=== PATIENT | female | born 1935 | race Caucasian/White ===

== ENCOUNTER 2021-12-15 15:12 | Inpatient (IN) | payer MEDICARE, SELFPAY ==
--- NOTE | ~2021-12-15 | CT_ITS ---
EXAMINATION: CT CHEST WITHOUT CONTRAST CLINICAL INFORMATION: History of breast cancer. Follow-up. CT chest 01/10/2022. COMPARISON: CT chest 01/10/2022 TECHNIQUE: Multidetector volumetric CT imaging of the chest was done. Axial MIP volume rendering provided. Sagittal and coronal reformatted images were obtained. This CT examination was performed using dose optimization techniques as appropriate, variously including the following: *Automated exposure control *Adjustment of mA and/or kV according to patient size (this includes techniques or standardized protocols for targeted exams where dose is matched to indication/reason for exam; i.e. extremities or head) *Use of iterative reconstruction technique DLP: 201 mGy-cm FINDINGS: LUNGS: *A semisolid right apical pulmonary nodule measuring 1.5 cm x 1.0 cm unchanged compared with 01/10/2022. *6 mm x 5 mm noncalcified nodule left upper pulmonary lobe series 5 image 64 unchanged compared with 01/10/2022. *2 mm left upper pulmonary lobe noncalcified nodule series 5 image 214 unchanged compared with 01/10/2022 *3 mm left lower lobe pulmonary nodule series 5 image 249 unchanged compared with 01/10/2022. MEDIASTINUM: Nonspecific mild heterogeneous density of the thyroid is noted. No discrete nodules specifically warranting additional imaging follow-up on the basis of this examination noted. No mediastinal lymphadenopathy. Moderate-marked diffuse coronary artery calcific atherosclerosis. Trace, physiologic pericardial fluid collection area no pericardial thickening. Normal heart size. CORONARY ARTERY CALCIFICATION: Moderate-marked diffuse coronary artery calcific atherosclerosis PLEURA: There is no pleural effusion. No pleural mass or thickening. AXILLA: Right axillary lymph node dissection clips. Partial visualization of coarse dystrophic calcifications and findings consistent with scarring noted in the right breast. UPPER ABDOMEN: Unremarkable. OSSEOUS STRUCTURES: No vertebral body compression deformities. Multilevel intervertebral disc space narrowing and anterior endplate osteophytosis. CT/CT chest wo IV con IMPRESSION: *Unchanged semisolid 1.5 cm x 1.0 cm nodule within the apex of the right pulmonary lobe. Per the Fleischner Society 2017 revised guidelines, as clinically indicated recommend annual screening CT to demonstrate stability to demonstrate ultimate 5 year stability. *Unchanged small number of scattered solid pulmonary nodules ranging in size up to 6 mm diameter stable compared with 01/10/2022. *Moderate-marked diffuse coronary artery calcific atherosclerosis. *Partially visualized posttreatment related changes of the right breast.
--- NOTE | ~2021-12-15 | XR_ITS ---
EXAMINATION: XR CHEST CLINICAL INFORMATION: Encephalopathy COMPARISON: CT chest 04/01/2022 TECHNIQUE: Frontal view of the chest was obtained. FINDINGS: The heart and pulmonary vessels appear unremarkable. No infiltrates, effusions or lung masses are seen. The right apical nodule seen on the CT scan is not visible on the current study. XR/XR chest 1V IMPRESSION: No acute intrathoracic disease.
--- NOTE | ~2021-12-15 | CT_ITS ---
EXAMINATION: CT HEAD WITHOUT CONTRAST CLINICAL INFORMATION: Unwitnessed fall. COMPARISON: None TECHNIQUE: Contiguous axial imaging was performed from the skull base to vertex without intravenous administration of contrast. This CT examination was performed using dose optimization techniques as appropriate, variously including the following: *Automated exposure control *Adjustment of mA and/or kV according to patient size (this includes techniques or standardized protocols for targeted exams where dose is matched to indication/reason for exam; i.e. extremities or head) *Use of iterative reconstruction technique DLP: 774 mGy-cm FINDINGS: There is no evidence of acute intracranial hemorrhage or territorial infarction. No abnormal mass effect or midline shift is seen. Zelaya to white matter differentiation is well preserved. No extra-axial fluid collections are identified. No hydrocephalus. No significant volume loss. Patchy periventricular and deep white matter hypoattenuation is consistent with mild small vessel ischemic changes. No acute osseous or soft tissue abnormality. The mastoid air cells and visualized portions of the paranasal sinuses are well aerated. CT/CT head/brain wo IV con IMPRESSION: No acute intracranial pathology.
--- NOTE | ~2021-12-15 | CT_ITS ---
EXAMINATION: CT CHEST WITHOUT CONTRAST CLINICAL INFORMATION: Breast cancer COMPARISON: None TECHNIQUE: Multidetector volumetric CT imaging of the chest was done. Axial MIP volume rendering provided. Sagittal and coronal reformatted images were obtained. This CT examination was performed using dose optimization techniques as appropriate, variously including the following: *Automated exposure control *Adjustment of mA and/or kV according to patient size (this includes techniques or standardized protocols for targeted exams where dose is matched to indication/reason for exam; i.e. extremities or head) *Use of iterative reconstruction technique DLP: 138 mGy-cm FINDINGS: LUNGS: Evaluation of the lung bases is limited due to respiratory motion artifact. There are small left pulmonary nodules. Largest pulmonary nodule measures 4 mm in the left upper lobe axial image 88 series 5. There is a single 2 mm solid right upper lobe nodule axial image 260 series 5. There is mild biapical pleural and parenchymal scarring. There is a 1.1 x 1.4 cm heterogeneous or semisolid right apical nodule axial image 54 series 5, question related to pleural and parenchymal scarring. MEDIASTINUM: There is a partially calcified 1.5 cm nodule in the inferior left thyroid lobe. There are no enlarged hilar or mediastinal lymph nodes. The heart is upper normal in size. There is a trace pericardial effusion. CORONARY ARTERY CALCIFICATION: Moderate PLEURA: There is no pleural effusion. No pleural mass or thickening. AXILLA: There is calcification and asymmetric density in the deep central right breast. There is a right breast skin thickening. Left breast is not included in the [id number]. There are are surgical clips in the right axilla. No enlarged axillary lymph nodes. UPPER ABDOMEN: Unremarkable. OSSEOUS STRUCTURES: Degenerative changes of the spine. CT/CT chest wo IV con IMPRESSION: Bilateral small pulmonary nodules, left greater than right. Biapical pleural and parenchymal scarring. 1.1 x 1.4 cm heterogeneous or semisolid right apical nodule, question related to pleural and parenchymal scarring. 1.5 cm partially calcified left thyroid nodule. Based on patient age in size, this does not meet criteria for follow-up. Moderate coronary artery calcification. Fleischner guidelines were followed.
[2021-12-15 15:35] VITALS: BMI 21.9
--- NOTE | 2021-12-15 15:39 | ED_ITS ---
HPI - Psych General Chief Complaint: Psychiatric Symptoms Stated Complaint: SEC 12. UNABLE TO CARE FOR SELF Time Seen by Provider: 12/15/21 15:18 Source: patient and EMS Mode of arrival: EMS Limitations: altered mental status History of Present Illness HPI Narrative: Patient presents to the emergency department via EMS on a Section 12 from [facility] for inpatient bedsearch. At this time it is unclear how the H&E came in vault with patient. 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 Patient has reportedly not been eating no food in her refrigerator, has a history of diabetes, unable to drive. House was in disarray upon arrival, cause is going to be condemned due to the condition that it is in. Per report from [facility] she has no children or family. She does go to the [facility], earlier this week they tried to get her to come to the emergency department but she declined. Senior protective Services are involved. Patient agitated requesting to leave stating that she is here against her own will. Related Data Allergies Allergy/AdvReac Type Severity Reaction Status Date / Time codeine Allergy Unknown Unknown Verified 12/15/21 18:29 sulfadiazine Allergy Unknown Unknown Verified 12/15/21 18:29 Review of Systems Review of Systems: Yes Unobtainable due to mental status PMFSH Past Medical History Source: unable to obtain Social History Social History Advance Directives: No Advance Directives Information Provided: No Physical Exam Vital Signs: Vital Signs: BMI result Body Mass Index 21.9 Appearance: Alert.?Oriented to person, disoriented place and time. Acutely agitated. Unkempt. Clothing is stained and tattered, hair is matted. Eyes: Pupils equal, round and reactive to light.? ENT: Pharynx normal.?? Neck: Normal inspection.? Neck supple.?? CVS: Heart sounds normal. Normal heart rate and rhythm.? Pulses normal.?? Respiratory: No respiratory distress.? Lung sounds clear to auscultation bilaterally?? Abdomen: Soft and non-tender. Normoactive bowel sounds. ?? Skin: Skin warm and dry.? Normal skin color.? Extremities: non pitting lower extremity edema.? Neuro: Moves all extremities spontaneously. Sensation intact bilaterally. CN II- XII intact. No focal neuro deficits. Ambulates with normal steady gait. Course Course Course Narrative: Patient is an 86-year-old female, no past medical records at [facility], it is unclear who her primary care provider is. According to N report, she has a history of diabetes unclear whether this is type 1 or type 2. Patient acutely agitated at the time of exam patient lying to provide any past medical history, she is oriented to person. Patient requiring medication to calm her behaviors declines Zyprexa orally, required Zyprexa 2.5 mg IM injection. Plan to obtain labs, EKG, urinalysis, chest x-ray and a CT of the head to exclude metabolic pathology for her altered mental status/agitation. Reevaluation(s) Reevaluation #1: Patient remains acutely agitated and combative towards staff. Will trial additional Zyprexa 2.5 mg IM. Contacted local [facility], [facility] to try and obtain records for patient. 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 Patient is more calm if staff not verbally or physically interacting with her. Refusing all care and vital signs at this time, striking staff, yelling. Patient to receive additional Zyprexa, so that care can safely be administered to patient. Resps are regular, even, non-labored. Time: 17:34 Reevaluation #3: Reviewed care with ED Attending Dr. Younger, patient continues to be agitated and combative with staff with any attempts of care or interaction. Will trial benadryl IM, as patient is refusing oral medications. Time: 18:45 Additional Reevaluation(s): 1914: Patient unable to be calmed. remains yelling clear full sentences, hitting staff, ripping off pulse oximeter, unable to obtain any vital signs. Patient to receive Versed 0.5mg IM. 2014: Agitation persists. ripping off clothing. fighting staff. able to obtain vital signs. Again discussed case with ED Attending, will trial additional Versed 1mg IM as it has been 45 minutes since last administration. 2044: Able to obtain labs and peripheral angio placed. Patient signed out to Dr Luna pending results of labs, EKG, imaging. Discharge Plan Discharge Clinical Impression: Agitation Patient Disposition: Still a Patient
--- NOTE | 2021-12-15 15:43 | MHC.CARE ---
Seen by N in the community
--- NOTE | 2021-12-15 16:20 | PC.NURSE ---
Pt combative and aggressive with staff since arrival. Refusing any care from staff. Security at bedside and IM zyprexa given at this time.
[2021-12-15] MEDS: OLANZapine 10 MG VIAL 2.5 MG IM ×2 (16:29→16:56)
--- NOTE | 2021-12-15 16:50 | PC.NURSE ---
Pt continues to be aggressive/combative with staff. Unable to obtain any vitals. IM zyprexa given
[2021-12-15] MEDS: OLANZapine 10 MG VIAL 5 MG IM (17:55)
--- OUTSIDE RECORDS SUMMARY | 2021-12-15 18:54 | XMS_ITS | Continuity of Care Document ---
:1935 Author Organization [facility] Address [address] [place] [address]- Care Team Providers Name Role Phone Meaghan SALAS, Conchita Noe Primary Care Physician Encounter [facility] Date(s): 09/07/21 - 10/07/21 [facility] [address] [place] [address]- Allergies, Adverse Reactions, Alerts Substance Reaction Severity Status codeine <not entered> Active sulfADIAZINE hives Active Immunizations Given and Recorded Vaccine Date Status Refusal Reason influenza virus vaccine, inactivated1 01/11/21 Given influenza virus vaccine, inactivated2 12/26/18 Given influenza virus vaccine, inactivated 03/10/16 Recorded influenza virus vaccine, inactivated 02/07/15 Recorded SARS-CoV-2 (COVID-19) mRNA-1273 vaccine 11/23/20 Recorded SARS-CoV-2 (COVID-19) mRNA-1273 vaccine 10/10/20 Recorded Influenza Virus Vaccine (oldterm) 03/05/18 Recorded pneumococcal 13-valent vaccine 07/29/15 Recorded pneumococcal 23-valent vaccine 02/03/09 Recorded pneumococcal 23-valent vaccine 01/20/00 Recorded 1Result Comment: [facility]# [id number] Comment: [facility] [id number] Medications atorvastatin 20 mg oral tablet 1 tablet, By Mouth, Daily, for 90 days, # 90 tablet, 3 Refills, Physician Stop 01/06/22 14:02:00 EDT, 01/11/21 14:02:00 EDT, [id number], 173, cm, 01/11/21 13:37:00 EDT, Height, 60.9, kg, 06/26/19 16:25:00 EDT, Dry Weight Start Date: 01/11/21 Stop Date: 01/06/22 Status: Orderedlisinopril 10 mg oral tablet 10 mg, 1, tablet, By Mouth, Daily, # 90 tablet, Refills 3, Tot. Refills 3, Maintenance, 01/11/21 13:51:00 EDT, Route to Pharmacy Electronically, [id number], Partial fill upon patient requestif the prescription is for a schedule II opioid d... Start Date: 01/11/21 Stop Date: 01/06/22 Status: OrderedmetFORMIN 500 mg oral tablet 2 tablet = 1,000 mg, By Mouth, 2 times a day, # 360 tablet, 3 Refills, Maintenance, 01/11/21 13:52:00 EDT, Tablet, [id number], Partial fill upon patient request if the prescription is for a schedule II opioid drug., 173, cm, 01/11/21 13:37:... Start Date: 01/11/21 Stop Date: 01/06/22 Status: Orderedsertraline 25 mg oral tablet 1 tablet, By Mouth, Daily, # 30 tablet, 3 Refills, Maintenance, 08/16/21 11:57:00 EDT, [facility], 173, cm, 01/11/21 14:17:00 EDT, Height Start Date: 08/16/21 Stop Date: 12/14/21 Status: OrderedtraZODone 50 mg oral tablet 1, tablet, By Mouth, Daily at bedtime, # 30 tablet, Refills 6, Tot. Refills 6, Maintenance, 12/02/2110:21:00 EDT, Route to Pharmacy Electronically, [id number], #30 only, 173, cm, 12/02/20 10:09:00 EDT, Height, 60.9, kg, 06/26/19 16:25:00 E... Start Date: 12/02/20 Stop Date: 06/30/21 Status: Ordered Problem List Condition Effective Dates Status Health Status Informant Age related macular Active degeneration(Confirmed) Breast cancer(Confirmed) Active Cataract(Confirmed) Active Charcot's arthropathy(Confirmed) Active Chronic kidney disease stage Active 2(Confirmed) Degeneration of lumbar intervertebral Active disc(Confirmed) Depressive disorder(Confirmed) Active Diabetes(Confirmed) Active Diabetic foot ulcer(Confirmed) Active Full thickness rotator cuff Active tear(Confirmed) Hearing loss(Confirmed) Active Loss of hair(Confirmed) Active Microalbuminuria(Confirmed) Active Pulmonary nodules/lesions, Active multiple(Confirmed) 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
--- OUTSIDE RECORDS SUMMARY | 2021-12-15 18:54 | XMS_ITS | Continuity of Care Document ---
:1935 Author Organization [facility] Address [address] [place] [address]- Care Team Providers Name Role Phone Tori URBAN, Corine M Primary Care Physician [place] [facility] [place] - 03/31/[address] [address]- [facility] Encounter Diagnosis Wound of left foot (Final) - 03/29/19 Discharge Disposition: A-D/C AMA Attending Physician: Quinten Hernandez MD Admitting Physician: Sherman Ludwig MD Referring Physician: Not on Staff, Referring MD Allergies, Adverse Reactions, Alerts Substance Reaction Severity Status codeine <not entered> Active sulfADIAZINE hives Active Immunizations Given and Recorded Vaccine Date Status Refusal Reason influenza virus vaccine, inactivated1 12/26/18 Given Influenza Virus Vaccine (oldterm) 03/05/18 Recorded pneumococcal 13-valent vaccine 07/29/15 Recorded pneumococcal 23-valent vaccine 02/03/09 Recorded pneumococcal 23-valent vaccine 01/20/00 Recorded 1Result Comment: [facility] [id number] Medications atorvastatin 20 mg oral tablet 1 tablet = 20 mg, By Mouth, Daily, # 30 tablet, 2 Refills, Maintenance, 02/24/19 14:08:12 EST, Tablet, 180.3, cm, 02/24/19 13:36:29 EST, Height Start Date: 02/24/19 Status: OrderedFreestyle Lite Monitor See Instructions, # 1 each, Maintenance, check fasting blood sugars 3 times a week and when feeling dizzy Dx - hypoglycemia, 09/08/16 12:45:25, Compound Start Date: 09/08/16 Status: OrderedFreestyle Lite Test Strips See Instructions, # 50 each, Maintenance, Dx - hypoglycemia Pls check fasting blood sugars 3 time a week and when dizzy, 09/08/16 12:45:32, Compound Start Date: 09/08/16 Status: OrderedGlucagon Emergency Kit See Instructions, # 1 application, Maintenance, to use as directed, 09/08/16 12:47:37, Compound Start Date: 09/08/16 Status: Orderedlisinopril 10 mg oral tablet See Instructions, # 90 tablet, TAKE 1 TABLET BY MOUTH ONCE DAILY, [id number] Start Date: 11/05/18 Status: OrderedmetFORMIN 500 mg oral tablet 2 tablet = 1,000 mg, By Mouth, 2 times a day, # 360 tablet, 0 Refills, Maintenance, 12/26/18 15:01:08 EDT, Tablet Start Date: 12/26/18 Status: Orderedoffloading consult offloading consult, See Instructions, # 1 each, Refills 0, Tot. Refills 0, Maintenance, left DFU; charcot arthropathy with ulcer, 06/11/17 14:14:19 EDT, Compound Start Date: 06/11/17 Status: Ordered Problem List Condition Effective Dates Status Health Status Informant Age related macular Active degeneration(Confirmed) Breast cancer(Confirmed) Active Cataract(Confirmed) Active Charcot's arthropathy(Confirmed) Active Chronic kidney disease stage Active 2(Confirmed) Degeneration of lumbar intervertebral Active disc(Confirmed) Depressive disorder(Confirmed) Active Diabetic foot ulcer(Confirmed) Active Full thickness [...] Active Venous varices(Confirmed) Active Visual impairment(Confirmed) Active Results Orders for Microbiology Reports Name Date Blood Culture 03/29/19 Blood Culture #2 03/29/19 Wound Superficial Culture W/ Gram Smear 03/29/19 Microbiology Reports TEST:Superficial Wound Culture STATUS:Unauthenticated BODY SITE: SOURCE:SWAB1 COLLECTED DATE/TIME:03/29/19 7:22 PMSuperficial Wound Culture SPECIMEN DESCRIPTION : SWAB FOOT LT SPECIAL REQUESTS : NONE GRAM STAIN : 3+ POLYMORPHONUCLEAR LEUKOCYTES NO ORGANISMS SEEN CULTURE : NORMAL SO FAR REPORT STATUS : PRELIMINARY REPORT TEST:Blood Culture, Second Order STATUS:Unauthenticated BODY SITE: SOURCE:Blood COLLECTED DATE/TIME:03/29/19 6:50 PMBlood Culture, Second Order SPECIMEN DESCRIPTION : BLOOD RA SPECIAL REQUESTS : NONE CULTURE : NO GROWTH AFTER 48 HOURS REPORT STATUS : PRELIMINARY REPORT TEST:Blood Culture STATUS:Unauthenticated BODY SITE: SOURCE:Blood COLLECTED DATE/TIME:03/29/19 6:40 PMBlood Culture SPECIMEN DESCRIPTION : BLOOD LA SPECIAL REQUESTS : NONE CULTURE : NO GROWTH AFTER 48 HOURS REPORT STATUS : PRELIMINARY REPORT Radiology Reports Exam Date Time Procedure Performing Provider Status 03/29/19 7:13 PM Foot Min 3 Views Left Guscott , Jacquie; Auth (Ve rified) Notes:(Foot Min 3 Views Left) Reason For Exam: with Pain;TraumaRESULT: Foot Min 3 Views Left Foot Min 3 Views Left, 3 views Refer to EMR; Reason: Trauma; with Pain; Clinical Question(s): Fracture; Hx of Present Illness: Pt sent from Urgent care for r o DVT, pt reports she just had U S on which was neg, has chronic wound to L foot, reports L foot and ankle pain; Other Objective Findings: Pt A+Ox4, respirations even and unlabored, skin p w d, able to ambulate, has dressing to L foot, no obvious erythema noted but u COMPARISON: None. FINDINGS: Linear density seen projecting in the left fourth digit. Angulated appearance of the fourth proximalphalanx with likely chronic. I do not see evidence of erosion. No discrete fracture line identified.Diffuse midfoot arthropathy noted without evidence of erosive findings. IMPRESSION: No significant interval change from 09/13/2013 examination. Persistent apparent radiopaque foreign body in the second digit area. WSN: [id number] Dictated By: Juaquin Sanchez MD Dictated Date/Time: 03/29/19 7:35 pm Reviewed By: Juaquin Sanchez MD Signed By: Juaquin Sanchez MD Signed Date/Time: 03/29/19 7:35 pm Transcribed By: IGGY Transcribed Date/Time: 03/29/19 7:33 pm Vital Signs Most recent to oldest 1 2 3 [Reference Range]: Oxygen Saturation [94-100 96 % 95 % 98 % %] (03/31/19 11:00 AM) (03/31/19 8:05 AM) (03/30/19 7: 58 PM) Pulse Rate [55-90 bpm] 85 bpm 86 bpm 77 bpm (03/31/19 8:05 AM) (03/30/19 7:58 PM) (03/30/19 3:0 0 PM) Blood Pressure 122/70 mm Hg 124/73 mm Hg 150/76 mm Hg [90-138/55-84 mm Hg] (03/31/19 11:00 AM) (03/31/19 8:05 AM) *H* (03/30/19 7:58 PM ) Respiratory Rate [16-30 22 br/min 16 br/min 18 br/mi n br/min] (03/31/19 11:00 AM) (03/31/19 8:05 AM) (03/30/19 7: 58 PM) Temperature [96.8-100.4 101 DegF 98.1 DegF 99 DegF DegF] *H* (03/31/19 8:05 AM) (03/30/19 7:58 PM) (03/31/19 11:00 AM) Mode of Delivery (Oxygen) Room air Room air Room a ir (03/31/19 11:00 AM) (03/31/19 8:05 AM) (03/30/19 7: 58 PM) Blood pressure sites Arm, left Arm, left Arm, left (03/31/19 11:00 AM) (03/31/19 8:05 AM) (03/30/19 7: 58 PM) Temperature Route Temporal Oral Oral (03/31/19 11:00 AM) (03/31/19 8:05 AM) (03/30/19 7: 58 PM) Sensory deficits Hearing deficit L, Hearing deficit R, Other: wears contacts and reading glasses (03/30/19 3:00 PM) Mobility assistance Partial assistance (03/30/19 3:00 PM) Social History Social History Type Response Smoking Status Never smoker entered on: 01/04/15 Sex
--- OUTSIDE RECORDS SUMMARY | 2021-12-15 18:54 | XMS_ITS | Continuity of Care Document ---
:1935 Author Organization [facility] Address [address] [place] [address]- Care Team Providers Name Role Phone Corine Valle MD Primary Care Physician [place] [facility] [place](s): 12/27/18 - 06/01/19 [facility] [address] [place] [address]- [facility] Discharge Disposition: A-D/C Home Attending Physician: Sierra Flowers MD Admitting Physician: Sierra Flowers MD Referring Physician: Corine Valle MD Allergies, Adverse Reactions, Alerts Substance Reaction Severity Status codeine <not entered> Active sulfADIAZINE hives Active Immunizations Given and Recorded Vaccine Date Status Refusal Reason influenza virus vaccine, inactivated1 12/26/18 Given Influenza Virus Vaccine (oldterm) 03/05/18 Recorded pneumococcal 13-valent vaccine 07/29/15 Recorded pneumococcal 23-valent vaccine 02/03/09 Recorded pneumococcal 23-valent vaccine 01/20/00 Recorded 1Result Comment: [facility] [id number] Medications atorvastatin 20 mg oral tablet 1 [...] Orderedlisinopril 10 mg oral tablet See Instructions, TAKE 1 TABLET BY MOUTH ONCE DAILY, # 90 tablet, Refills 0, Tot. Refills 0, Soft Stop, 05/27/19 17:34:00 EDT, Instructions Replace Required Details, Route to Pharmacy Electronically, [facility], 180.3, cm, 02/24/19 13:36:00... Start Date: 05/27/19 Status: OrderedmetFORMIN 500 mg oral tablet 2 tablet = 1,000 mg, By Mouth, 2 times a day, # 360 tablet, 0 Refills, Maintenance, 04/24/19 15:28:00 EST, Tablet, [facility], 180.3, cm, 02/24/19 13:36:00 EST, Height Start Date: 04/24/19 Status: Orderedoffloading consult offloading consult, See Instructions, [...]
--- OUTSIDE RECORDS SUMMARY | 2021-12-15 18:54 | XMS_ITS | Continuity of Care Document ---
:1935 Author Organization [facility] Address [address] [place] [address]- Care Team Providers Name Role Phone Corine Valle MD Primary Care Physician Encounter [facility] [place] Date(s): 07/02/19 - 08/01/[address] [address]- [facility] Attending Physician: Not on Staff, Attending MD Admitting Physician: Not on Staff, Admitting MD Referring Physician: Not on Staff, Referring MD Allergies, Adverse Reactions, Alerts Substance Reaction Severity Status codeine <not entered> Active sulfADIAZINE hives Active Immunizations Given and Recorded Vaccine Date Status Refusal Reason influenza virus vaccine, inactivated1 12/26/18 Given Influenza Virus Vaccine (oldterm) 03/05/18 Recorded pneumococcal 13-valent vaccine 07/29/15 Recorded pneumococcal 23-valent vaccine 02/03/09 Recorded pneumococcal 23-valent vaccine 01/20/00 Recorded 1Result Comment: [facility] [id number] Medications atorvastatin 20 mg oral tablet See Instructions, Take 1 tablet by mouth once daily, # 30 tablet, 0 Refills, Maintenance, [facility], 173, cm, 07/02/19 14:33:00 EDT, Height, 60.9, kg, 06/26/19 16:25:00 EDT, Dry Weight Start Date: 07/29/19 Status: OrderedtraZODone 50 mg oral tablet 50 mg, 1, tablet, By Mouth, Daily at bedtime, # 30 tablet, Refills 1, Tot. Refills 1, Maintenance, 07/30/19 16:59:00 EDT, Route to Pharmacy Electronically, [id number], 173, cm, 07/02/19 14:33:00 EDT, Height, 60.9, kg, 06/26/19 16:25:00 EDT,... Start Date: 07/30/19 Status: OrderedZoloft 25 mg oral tablet 1 tablet = 25 mg, By Mouth, Daily, # 30 tablet, 1 Refills, Maintenance, 07/30/19 16:59:00 EDT, Tablet, [facility], 173, cm, 07/02/19 14:33:00 EDT, Height, 60.9, kg, 06/26/19 16:25:00 EDT, Dry Weight Start Date: 07/30/19 Status: Ordered Problem List Condition Effective Dates [...]
--- OUTSIDE RECORDS SUMMARY | 2021-12-15 18:54 | XMS_ITS | Continuity of Care Document ---
:1935 Author Organization [facility] Address [address] [place] [address]- Care Team Providers Name Role Phone Meaghan SALAS, Conchita Noe Primary Care Physician [phone] [place] [facility] [place] 09/28/21 - 10/28/21 [facility] [address] [place] [address]- Attending Physician: Saqib Ashley Admitting Physician: AdmtrSaqib Referring Physician: Admtr, ArMechelle Allergies, Adverse Reactions, Alerts Substance Reaction Severity [...] 01/20/00 Recorded 1Result Comment: [facility]# [id number] Comment: [facility] [id number] Medications atorvastatin 20 mg oral tablet 1 tablet, By Mouth, Daily, for 90 days, # 90 tablet, 3 Refills, Physician Stop 01/06/22 14:02:00 EDT, 01/11/21 14:02:00 EDT, [id number], 173, cm, 01/11/21 13:37:00 EDT, Height, 60.9, kg, 06/26/19 16:25:00 EDT, Dry Weight Start Date: 01/11/21 Stop Date: 01/06/22 Status: Orderedlisinopril 10 mg oral tablet 10 mg, 1, tablet, By Mouth, Daily, # 90 tablet, Refills 3, Tot. Refills 3, Maintenance, 01/11/21 13:51:00 EDT, Route to Pharmacy Electronically, [facility], Partial fill upon patient requestif the prescription is for a schedule II opioid d... Start Date: 01/11/21 Stop Date: 01/06/22 Status: OrderedmetFORMIN 500 mg oral tablet 2 tablet = 1,000 mg, By Mouth, 2 times a day, # 360 tablet, 3 Refills, Maintenance, 01/11/21 13:52:00 EDT, Tablet, [facility], Partial fill upon patient request [...] Maintenance, 12/02/2110:21:00 EDT, Route to Pharmacy Electronically, [id number], #30 only, 173, cm, 12/02/20 [...]
--- OUTSIDE RECORDS SUMMARY | 2021-12-15 18:54 | XMS_ITS | Continuity of Care Document ---
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) - 12/02/20 Osteoarthritis of knee (Discharge Diagnosis) - 12/02/20 Type 2 diabetes mellitus (Discharge Diagnosis) - 12/02/20 Pulmonary nodules/lesions, multiple (Discharge Diagnosis) - 12/02/20 Attending Physician: Conchita Harding NP Allergies, Adverse Reactions, Alerts Substance Reaction Severity Status codeine <not entered> Active sulfADIAZINE hives Active Immunizations Given and Recorded Vaccine Date Status Refusal Reason SARS-CoV-2 (COVID-19) mRNA-1273 vaccine 11/23/20 Recorded SARS-CoV-2 (COVID-19) mRNA-1273 vaccine 10/10/20 Recorded influenza virus vaccine, inactivated1 12/26/18 Given influenza virus vaccine, inactivated 03/10/16 Recorded influenza virus vaccine, inactivated 02/07/15 Recorded Influenza Virus Vaccine (oldterm) 03/05/18 Recorded pneumococcal 13-valent vaccine 07/29/15 Recorded pneumococcal 23-valent vaccine 02/03/09 Recorded pneumococcal 23-valent vaccine 01/20/00 Recorded 1Result Comment: [facility] [id number] Medications atorvastatin 20 mg oral tablet See Instructions, Take 1 tablet by mouth once daily, # 30 tablet, 0 Refills, 12/02/20 11:21:00 EDT, [facility], 173, cm, 12/02/20 10:09:00 EDT, Height, 60.9, kg, 06/26/19 16:25:00 EDT, Dry Weight Start Date: 12/02/20 Status: Orderedsertraline 25 mg oral tablet 1 tablet, By Mouth, Daily, # 30 tablet, 6 Refills, Maintenance, 12/02/20 11:21:00 EDT, [facility], 173, cm, 12/02/20 10:09:00 EDT, Height, 60.9, kg, 06/26/19 16:25:00 EDT, Dry Weight Start Date: 12/02/20 Stop Date: 06/30/21 Status: OrderedtraZODone 50 mg oral tablet 1, tablet, By Mouth, Daily at bedtime, # 30 tablet, Refills 6, Tot. Refills 6, Maintenance, 12/02/2110:21:00 EDT, Route to Pharmacy Electronically, [facility], #30 only, 173, cm, 12/02/20 [...] Active Venous varices(Confirmed) Active Visual impairment(Confirmed) Active Diagnosis Diagnosis Type Effective Dates Health Clinical Infor mant Status Service Breast cancer Discharge 12/02/20 Diagnosis Depressive disorder Discharge 12/02/20 Diagnosis Hearing loss Discharge 12/02/20 Diagnosis Neuropathy due to Discharge 12/02/20 type 2 diabetes Diagnosis mellitus Osteoarthritis of Discharge 12/02/20 knee Diagnosis Type 2 diabetes Discharge 12/02/20 mellitus Diagnosis Pulmonary Discharge 12/02/20 nodules/lesions, Diagnosis multiple Vital Signs Most recent to oldest [Reference Range]: 1 Height 173 cm (12/02/20 10:09 AM) Social History Social History Type Response Smoking Status Never smoker entered on: 01/04/15 Sex
--- OUTSIDE RECORDS SUMMARY | 2021-12-15 18:54 | XMS_ITS | Continuity of Care Document ---
:1935 Author Organization [facility] Address [address] [place] [address]- Care Team Providers Name Role Phone Not on Staff, PCP Primary Care Physician Unavailable Encounter [facility] Date(s): 11/20/20 - 11/20/[address] [address]- Encounter Diagnosis Hyperlipidemia (Final) - 11/20/20 Discharge Disposition: A-D/C Home Attending Physician: Deidra Denton MD Admitting Physician: Deidra Denton MD Referring Physician: Not on Staff, Referring [...] 01/20/00 Recorded 1Result Comment: [facility] [id number] Medications atorvastatin 20 mg oral tablet 1 tablet = 20 mg, By Mouth, Daily, # 15 tablet, 0 Refills, Maintenance, 11/20/20 18:39:00 EDT, Tablet, [facility], Partial fill upon patient request if the prescription is for a schedule II opioid drug., 173, cm, 07/02/19 14:33:00 EDT, [facility]... Start Date: 11/20/20 Status: Orderedatorvastatin 20 mg oral tablet See Instructions, Take 1 tablet by mouth once daily, # 30 tablet, 0 Refills, 08/03/20 13:18:00 EDT, [facility], 173, cm, 07/02/19 14:33:00 EDT, Height, 60.9, kg, 06/26/19 16:25:00 EDT, Dry Weight Start Date: 08/03/20 Status: Orderedsertraline 25 mg oral tablet 1 tablet = 25 mg, By Mouth, Daily, # 15 tablet, 0 Refills, Maintenance, 11/20/20 18:40:00 EDT, Tablet, [facility], Partial fill upon patient request if the prescription is for a schedule II opioid drug., 173, cm, 07/02/19 14:33:00 EDT, [facility]... Start Date: 11/20/20 Status: Orderedsertraline 25 mg oral tablet 1 tablet, By Mouth, Daily, # 30 tablet, 0 Refills, Maintenance, 08/03/20 13:19:00 EDT, [facility], 173, cm, 07/02/19 14:33:00 EDT, Height, 60.9, kg, 06/26/19 16:25:00 EDT, Dry Weight Start Date: 08/03/20 Status: OrderedtraZODone 50 mg oral tablet 50 mg, 1, tablet, By Mouth, Daily at bedtime, # 15 tablet, Refills 0, Tot. Refills 0, Maintenance, 11/20/20 18:41:00 EDT, Route to Pharmacy Electronically, [facility], Partial fill upon patient request if the prescription is for a schedule... Start Date: 11/20/20 Status: OrderedtraZODone 50 mg oral tablet 1, tablet, By Mouth, Daily at bedtime, # 30 tablet, Refills 0, Tot. Refills 0, Maintenance, 08/03/2112:19:00 EDT, Route to Pharmacy Electronically, [facility], #30 only, 173, cm, 07/02/19 14:33:00 EDT, Height, 60.9, kg, 06/26/19 16:25:00 E... Start Date: 08/03/20 Status: Ordered Problem List Condition Effective Dates [...] Active Venous varices(Confirmed) Active Visual impairment(Confirmed) Active Vital Signs Most recent to oldest [Reference 1 2 3 Range]: Oxygen Saturation [94-100 %] 96 % 94 % (11/20/20 6:00 PM) (11/20/20 3:53 PM) Pulse Rate [55-90 bpm] 72 bpm 81 bpm (11/20/20 6:00 PM) (11/20/20 3:53 PM) Blood Pressure [90-138/55-84 mm 180/87 mm Hg 194/84 mm Hg 152/94 mm Hg Hg] *H* *H* *H* (11/20/20 6:19 PM) (11/20/20 6:00 PM) (11/20/20 3:53 P M) Respiratory Rate [16-30 br/min] 20 br/min 16 br/min (11/20/20 6:00 PM) (11/20/20 3:53 PM) Temperature [96.8-100.4 DegF] 98.1 DegF 98 DegF (11/20/20 6:00 PM) (11/20/20 3:53 PM) Mode of Delivery (Oxygen) Room air Room air (11/20/20 6:00 PM) (11/20/20 3:53 PM) Blood pressure sites Arm, left (11/20/20 6:00 PM) Temperature Route Oral Oral (11/20/20 6:00 PM) (11/20/20 3:53 PM) Social History Social History Type Response Smoking Status Never smoker entered on: 01/04/15 Sex
--- OUTSIDE RECORDS SUMMARY | 2021-12-15 18:54 | XMS_ITS | Continuity of Care Document ---
:1935 Author Organization [facility] Address [address] [place] [address]- Care Team Providers Name Role Phone Meaghan SALAS, Conchita Noe Primary Care Physician [phone] Encounter [facility] [place] Date(s): 10/21/21 - 11/20/21 [facility] [address] [place] [address]- Allergies, Adverse Reactions, Alerts Substance Reaction Severity [...] pneumococcal 23-valent vaccine 01/20/00 Recorded 1Result Comment: [facility]# [id number] Comment: [facility] [id number] Medications atorvastatin 20 mg oral tablet 1 tablet, By Mouth, Daily, for 90 days, # 90 tablet, 3 Refills, Physician Stop 01/06/22 14:02:00 EDT, 01/11/21 14:02:00 EDT, [facility], 173, cm, 01/11/21 13:37:00 EDT, Height, 60.9, kg, 06/26/19 16:25:00 EDT, Dry Weight Start Date: 01/11/21 Stop Date: 01/06/22 Status: Orderedlisinopril 10 mg oral tablet 10 mg, 1, tablet, By Mouth, Daily, # 90 tablet, Refills 3, Tot. Refills 3, Maintenance, 01/11/21 13:51:00 EDT, Route to Pharmacy Electronically, [facility], Partial fill upon patient requestif the prescription is for a schedule II opioid d... Start Date: 01/11/21 Stop Date: 01/06/22 Status: OrderedmetFORMIN 500 mg oral tablet 2 tablet = 1,000 mg, By Mouth, 2 times a day, # 360 tablet, 3 Refills, Maintenance, 01/11/21 13:52:00 EDT, Tablet, [facility], Partial fill upon patient request [...] Maintenance, 12/02/2110:21:00 EDT, Route to Pharmacy Electronically, [facility], #30 only, 173, cm, [...] Status Never smoker entered on: 01/04/15 Sex Care Team PersonnelName: Meaghan SALAS, Conchita Noe Address: [address] [facility] [address] [place], [place] [address]
--- OUTSIDE RECORDS SUMMARY | 2021-12-15 18:55 | XMS_ITS | Continuity of Care Document ---
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# [id number] Comment: [facility] [id number] Medications atorvastatin 20 mg oral tablet 1 tablet, By Mouth, Daily, for 90 days, # 90 tablet, 3 Refills, Physician Stop 01/06/22 14:02:00 EDT, 01/11/21 14:02:00 EDT, [facility], 173, cm, 01/11/21 13:37:00 EDT, Height, 60.9, kg, 06/26/19 16:25:00 EDT, Dry Weight Start Date: 01/11/21 Stop Date: 01/06/22 Status: Orderedlisinopril 10 mg oral tablet 10 mg, 1, tablet, By Mouth, Daily, # 90 tablet, Refills 3, Tot. Refills 3, Maintenance, 01/11/21 13:51:00 EDT, Route to Pharmacy Electronically, [facility], Partial fill upon patient requestif the prescription is for a schedule II opioid d... Start Date: 01/11/21 Stop Date: 01/06/22 Status: OrderedmetFORMIN 500 mg oral tablet 2 tablet = 1,000 mg, By Mouth, 2 times a day, # 360 tablet, 3 Refills, Maintenance, 01/11/21 13:52:00 EDT, Tablet, [facility], Partial fill upon patient request if the prescription is for a schedule II opioid drug., 173, cm, 01/11/21 13:37:... Start Date: 01/11/21 Stop Date: 01/06/22 Status: Orderedsertraline 25 mg oral tablet 1 tablet, By Mouth, Daily, # 30 tablet, 6 Refills, Maintenance, 12/02/20 11:21:00 EDT, [facility], 173, cm, 12/02/20 10:09:00 EDT, Height, 60.9, kg, 06/26/19 16:25:00 EDT, Dry Weight Start Date: 12/02/20 Stop Date: 06/30/21 Status: OrderedtraZODone 50 mg oral tablet 1, tablet, By Mouth, Daily at bedtime, # 30 tablet, Refills 6, Tot. Refills 6, Maintenance, 12/02/2110:21:00 EDT, Route to Pharmacy Electronically, [facility], #30 only, 173, cm, 12/02/20 [...] Dates Health Clinical Infor mant Status Service Encounter for Discharge 01/11/21 Medicare annual Diagnosis wellness exam Breast cancer Discharge 01/11/21 Diagnosis Chronic kidney Discharge 01/11/21 disease stage 2 Diagnosis Degeneration of Discharge 01/11/21 lumbar Diagnosis intervertebral disc Depressive disorder Discharge 01/11/21 Diagnosis Hearing loss Discharge 01/11/21 Diagnosis Hypertension Discharge 01/11/21 Diagnosis Diabetes Discharge 01/12/21 Diagnosis Vital Signs Most recent to oldest 1 2 3 [Reference Range]: Height 173 cm 173 cm 173 cm (01/11/21 2:17 PM) (01/11/21 1:38 PM) (01/11/21 1:37 PM) Weight 73.1 kg (01/11/21 1:20 PM) Oxygen Saturation [94-100 %] 98 % (01/11/21 1:20 PM) Pulse Rate [55-90 bpm] 84 bpm (01/11/21 1:20 PM) Body Mass Index [18.5-24.99] 24.42 (01/11/21 1:20 PM) Blood Pressure [90-138/55-84 172/98 mm Hg 156/77 mm Hg 163 /80 mm Hg mm Hg] *H* *H* *H* (01/11/21 2:17 PM) (01/11/21 1:38 PM) (01/11/21 1:37 PM) Mode of Delivery (Oxygen) Room air (01/11/21 1:20 PM) Blood pressure sites Arm, left Arm, right Arm, right (01/11/21 2:17 PM) (01/11/21 1:38 PM) (01/11/21 1:37 PM) Weight Obtained Via Standing scale (01/11/21 1:20 PM) Social History Social History Type Response Smoking Status Never smoker entered on: 01/04/15 Sex
--- OUTSIDE RECORDS SUMMARY | 2021-12-15 18:55 | XMS_ITS | Continuity of Care Document ---
:1935 Author Organization [facility] Address [address] [place] [address]- Care Team Providers Name Role Phone Meaghan SALAS, Conchita Noe Primary Care Physician [id number] Date(s): 02/18/21 - 06/18/21 [facility] [address] [place] [address]- Attending Physician: Conchita Harding NP Allergies, Adverse [...] pneumococcal 23-valent vaccine 01/20/00 Recorded 1Result Comment: [facility]# [id number] Comment: [facility] [id number] Medications atorvastatin 20 mg oral tablet 1 tablet, By Mouth, Daily, for 90 days, # 90 tablet, 3 Refills, Physician Stop 01/06/22 14:02:00 EDT, 01/11/21 14:02:00 EDT, [facility], 173, cm, 01/11/21 13:37:00 EDT, Height, 60.9, kg, 06/26/19 16:25:00 EDT, Dry Weight Start Date: 01/11/21 Stop Date: 01/06/22 Status: Orderedlisinopril 10 mg oral tablet 10 mg, 1, tablet, By Mouth, Daily, # 90 tablet, Refills 3, Tot. Refills 3, Maintenance, 01/11/21 13:51:00 EDT, Route to Pharmacy Electronically, [facility], Partial fill upon patient requestif the prescription is for a schedule II opioid d... Start Date: 01/11/21 Stop Date: 01/06/22 Status: OrderedmetFORMIN 500 mg oral tablet 2 tablet = 1,000 mg, By Mouth, 2 times a day, # 360 tablet, 3 Refills, Maintenance, 01/11/21 13:52:00 EDT, Tablet, [facility], Partial fill upon patient request if the prescription is for a schedule II opioid drug., 173, cm, 01/11/21 13:37:... Start Date: 01/11/21 Stop Date: 01/06/22 Status: Orderedsertraline 25 mg oral tablet 1 tablet, By Mouth, Daily, # 30 tablet, 6 Refills, Maintenance, 12/02/20 11:21:00 EDT, [facility], 173, cm, 12/02/20 10:09:00 EDT, Height, 60.9, kg, 06/26/19 16:25:00 EDT, Dry Weight Start Date: 12/02/20 Stop Date: 06/30/21 Status: OrderedtraZODone 50 mg oral tablet 1, tablet, By Mouth, Daily at bedtime, # 30 tablet, Refills 6, Tot. Refills 6, Maintenance, 12/02/2110:21:00 EDT, Route to Pharmacy Electronically, [facility], #30 only, 173, cm, [...]
--- OUTSIDE RECORDS SUMMARY | 2021-12-15 18:55 | XMS_ITS | Continuity of Care Document ---
:1935 Author Organization [facility] Address [address] [place] [address]- Care Team Providers Name Role Phone Meaghan SALAS, Conchita Noe Primary Care Physician Encounter [facility] [place] Date(s): 05/19/21 - 06/18/21 [facility] [address] [place] [address]- Attending Physician: Saqib Ashley Admitting Physician: AdmtrSaqib [...] Recorded 1Result Comment: [facility]# [id number] Comment: [facility] [id number] Medications atorvastatin 20 mg oral tablet 1 tablet, By Mouth, Daily, for 90 days, # 90 tablet, 3 Refills, Physician Stop 01/06/22 14:02:00 EDT, 01/11/21 14:02:00 EDT, [facility], 173, cm, 01/11/21 13:37:00 EDT, Height, 60.9, kg, 06/26/19 16:25:00 EDT, Dry Weight Start Date: 01/11/21 Stop Date: 01/06/22 Status: Orderedlisinopril 10 mg oral tablet 10 mg, 1, tablet, By Mouth, Daily, # 90 tablet, Refills 3, Tot. Refills 3, Maintenance, 01/11/21 13:51:00 EDT, Route to Pharmacy Electronically, [facility], Partial fill upon patient requestif the prescription is for a schedule II opioid d... Start Date: 01/11/21 Stop Date: 01/06/22 Status: OrderedmetFORMIN 500 mg oral tablet 2 tablet = 1,000 mg, By Mouth, 2 times a day, # 360 tablet, 3 Refills, Maintenance, 01/11/21 13:52:00 EDT, Tablet, [facility], Partial fill upon patient request if the prescription is for a schedule II opioid drug., 173, cm, 01/11/21 13:37:... Start Date: 01/11/21 Stop Date: 01/06/22 Status: Orderedsertraline 25 mg oral tablet 1 tablet, By Mouth, Daily, # 30 tablet, 6 Refills, Maintenance, 12/02/20 11:21:00 EDT, [facility], 173, cm, 12/02/20 10:09:00 EDT, Height, 60.9, kg, 06/26/19 16:25:00 EDT, Dry Weight Start Date: 12/02/20 Stop Date: 06/30/21 Status: OrderedtraZODone 50 mg oral tablet 1, tablet, By Mouth, Daily at bedtime, # 30 tablet, Refills 6, Tot. Refills 6, Maintenance, 12/02/2110:21:00 EDT, Route to Pharmacy Electronically, [facility], #30 only, 173, cm, [...]
--- OUTSIDE RECORDS SUMMARY | 2021-12-15 18:55 | XMS_ITS | Continuity of Care Document ---
:1935 Author Organization [facility] Address [address] [place] [address]- Care Team Providers Name Role Phone Meaghan SALAS, Conchita Noe Primary Care Physician [place] [facility] [place] 09/16/21 - 10/16/21 [facility] [address] [place] [address]- Allergies, Adverse Reactions, Alerts Substance Reaction Severity [...] 23-valent vaccine 01/20/00 Recorded 1Result Comment: [facility]# [id number] Comment: [facility] [id number] Medications atorvastatin 20 mg oral tablet 1 tablet, By Mouth, Daily, for 90 days, # 90 tablet, 3 Refills, Physician Stop 01/06/22 14:02:00 EDT, 01/11/21 14:02:00 EDT, [facility], 173, cm, 01/11/21 13:37:00 EDT, Height, 60.9, kg, 06/26/19 16:25:00 EDT, Dry Weight Start Date: 01/11/21 Stop Date: 01/06/22 Status: Orderedlisinopril 10 mg oral tablet 10 mg, 1, tablet, By Mouth, Daily, # 90 tablet, Refills 3, Tot. Refills 3, Maintenance, 01/11/21 13:51:00 EDT, Route to Pharmacy Electronically, [facility], Partial fill upon patient requestif the prescription is for a schedule II opioid d... Start Date: 01/11/21 Stop Date: 01/06/22 Status: OrderedmetFORMIN 500 mg oral tablet 2 tablet = 1,000 mg, By Mouth, 2 times a day, # 360 tablet, 3 Refills, Maintenance, 01/11/21 13:52:00 EDT, Tablet, [facility], Partial fill upon patient [...] Maintenance, 12/02/2110:21:00 EDT, Route to Pharmacy Electronically, [facility], #30 only, 173, cm, [...]
--- OUTSIDE RECORDS SUMMARY | 2021-12-15 18:55 | XMS_ITS | Continuity of Care Document ---
:1935 Author Organization [facility] Adult Address [address] [place] [address]- Care Team Providers Name Role Phone Meaghan SALAS, Conchita Noe Primary Care Physician [phone] Encounter [facility] [place] Date(s): 09/14/21 - 10/28/21 [facility] [address] [place], [place] [address] Attending Physician: Conchita Harding NP Allergies, Adverse [...] pneumococcal 23-valent vaccine 01/20/00 Recorded 1Result Comment: [facility]# [id number] Comment: [facility] [id number] Medications atorvastatin 20 mg oral tablet 1 tablet, By Mouth, Daily, for 90 days, # 90 tablet, 3 Refills, Physician Stop 01/06/22 14:02:00 EDT, 01/11/21 14:02:00 EDT, [facility], 173, cm, 01/11/21 13:37:00 EDT, Height, 60.9, kg, 06/26/19 16:25:00 EDT, Dry Weight Start Date: 01/11/21 Stop Date: 01/06/22 Status: Orderedlisinopril 10 mg oral tablet 10 mg, 1, tablet, By Mouth, Daily, # 90 tablet, Refills 3, Tot. Refills 3, Maintenance, 01/11/21 13:51:00 EDT, Route to Pharmacy Electronically, [facility], Partial fill upon patient requestif the prescription is for a schedule II opioid d... Start Date: 01/11/21 Stop Date: 01/06/22 Status: OrderedmetFORMIN 500 mg oral tablet 2 tablet = 1,000 mg, By Mouth, 2 times a day, # 360 tablet, 3 Refills, Maintenance, 01/11/21 13:52:00 EDT, Tablet, [facility], Partial fill upon patient [...] Maintenance, 12/02/2110:21:00 EDT, Route to Pharmacy Electronically, [facility], #30 only, 173, cm, [...]
--- OUTSIDE RECORDS SUMMARY | 2021-12-15 18:55 | XMS_ITS | Continuity of Care Document ---
:1935 Author Organization [facility] Address [address] [place] [address]- Care Team Providers Name Role Phone Meaghan SALAS, Conchita Noe Primary Care Physician [phone] Encounter [facility] [place] Date(s): 09/06/21 - 10/06/21 [facility] [address] [place] [address]- Allergies, Adverse Reactions, Alerts Substance Reaction Severity [...] 1Result Comment: [facility]# [id number] Comment: [facility] [id number] Medications atorvastatin 20 mg oral tablet 1 tablet, By Mouth, Daily, for 90 days, # 90 tablet, 3 Refills, Physician Stop 01/06/22 14:02:00 EDT, 01/11/21 14:02:00 EDT, [facility], 173, cm, 01/11/21 13:37:00 EDT, Height, 60.9, kg, 06/26/19 16:25:00 EDT, Dry Weight Start Date: 01/11/21 Stop Date: 01/06/22 Status: Orderedlisinopril 10 mg oral tablet 10 mg, 1, tablet, By Mouth, Daily, # 90 tablet, Refills 3, Tot. Refills 3, Maintenance, 01/11/21 13:51:00 EDT, Route to Pharmacy Electronically, [facility], Partial fill upon patient requestif the prescription is for a schedule II opioid d... Start Date: 01/11/21 Stop Date: 01/06/22 Status: OrderedmetFORMIN 500 mg oral tablet 2 tablet = 1,000 mg, By Mouth, 2 times a day, # 360 tablet, 3 Refills, Maintenance, 01/11/21 13:52:00 EDT, Tablet, [facility], Partial fill upon patient [...] Maintenance, 12/02/2110:21:00 EDT, Route to Pharmacy Electronically, [facility], #30 only, 173, cm, [...]
--- OUTSIDE RECORDS SUMMARY | 2021-12-15 18:55 | XMS_ITS ---
:1935 Author Care Team Providers Name Role Phone [facility] OTHER [phone] Allergies Code Code System Name Reaction Severity Status Onset 2670 RxNorm Codeine ? ? Active ? Sulfa (Sulfonamide Antibiotics) ? ? Active ? Medications Notes: medication has been reviewed-se e MAR for up to date list Problems Name Status Onset Date Source ? Charcot's Joint of Foot Active 12/28/2017 ? Primary Malignant Neoplasm of Female Breast Active 12/17 ? Diabetes Mellitus Active 12/28/2017 ? Essential Hypertension Active 12/28/2017 ? Chronic Ulcer of Foot Active 12/28/2017 ? Osteomyelitis Active 12/28/2017 ? Bladder Muscle Dysfunction - Overactive Active 12/29/19 18 ? Fall Active 01/03/2018 ? Procedures None recorded. Results Lab Results None recorded. Past Encounters None recorded. Social History Tobacco Smoking Status Never Smoker Vaccine List Vaccine Type influenza, unspecified formulation 12/17/2017 Plan of Care Reminders Provider Appointments None recorded. ? ? Lab None recorded. ? ? Referral None recorded. ? ? Procedures None recorded. ? ? Surgeries None recorded. ? ? Imaging None recorded. ? ? Vitals 01/29/2018 09:28AM Discharge Summary Blood Pressure 117/52 mm[Hg] 01/24/2018 10:28AM Routine Rounding Visit Blood Pressure 115/50 mm[Hg] 01/17/2018 10:45AM Acute Rounding Visit Blood Pressure 126/66 mm[Hg] 01/03/2018 08:34AM Acute Rounding Visit Blood Pressure (1) 130/68 mm[Hg] (2) 114/59 mm[Hg] 01/01/2018 11:59AM Admitting H&P Blood Pressure 137/71 mm[Hg] 12/28/2017 07:49AM Initial Intake Note Blood Pressure 124/49 mm[Hg]
--- OUTSIDE RECORDS SUMMARY | 2021-12-15 18:55 | XMS_ITS | Continuity of Care Document ---
:1935 Author Organization [facility] Address [address] [place] [address]- Care Team Providers Name Role Phone Tori URBAN, Corine Metz Primary Care Physician Encounter [facility] [place] Date(s): 06/26/19 - 07/02/[address] [address]- [facility] Encounter Diagnosis Lactic acidosis (Final) - 06/26/19 Discharge Disposition: A-D/C Home Attending Physician: Jace Tong MD Admitting Physician: Robin Morris MD Referring Physician: Not on Staff, Referring MD Allergies, Adverse Reactions, Alerts Substance Reaction Severity Status codeine <not entered> Active sulfADIAZINE hives Active Immunizations Given and Recorded Vaccine Date Status Refusal Reason influenza virus vaccine, inactivated1 12/26/18 Given Influenza Virus Vaccine (oldterm) 03/05/18 Recorded pneumococcal 13-valent vaccine 07/29/15 Recorded pneumococcal 23-valent vaccine 02/03/09 Recorded pneumococcal 23-valent vaccine 01/20/00 Recorded 1Result Comment: [facility] [id number] Medications atorvastatin 20 mg oral tablet 1 tablet = 20 mg, By Mouth, Daily, # 30 tablet, 2 Refills, Maintenance, 02/24/19 14:08:12 EST, Tablet, 180.3, cm, 02/24/19 13:36:29 EST, Height Start Date: 02/24/19 Status: OrderedtraZODone 50 mg oral tablet 50 mg, 1, tablet, By Mouth, Daily at bedtime, # 30 tablet, Refills 0, Tot. Refills 0, Maintenance, 07/02/19 15:02:00 EDT, Route to Pharmacy Electronically, [id number], 173, cm, 07/02/19 14:33:00 EDT, Height, 60.9, kg, 06/26/19 16:25:00 EDT,... Start Date: 07/02/19 Status: OrderedZoloft 25 mg oral tablet 1 tablet = 25 mg, By Mouth, Daily, # 30 tablet, 0 Refills, Maintenance, 07/02/19 15:02:00 EDT, Tablet, [facility], 173, cm, 07/02/19 14:33:00 EDT, Height, 60.9, kg, 06/26/19 16:25:00 EDT, Dry Weight Start Date: 07/02/19 Status: Ordered Problem List Condition Effective Dates [...] Results Orders for Microbiology Reports Name Date Urine Culture (Culture Urine) 06/28/19 Microbiology Reports TEST:Urine Culture STATUS:Auth (Verified) BODY SITE: SOURCE:URINE COLLECTED DATE/TIME:06/28/19 5:25 PMUrine Culture SPECIMEN DESCRIPTION : URINE STRAIGHT CATH. SPECIAL REQUESTS : NONE CULTURE : NO GROWTH 3 DAYS REPORT STATUS : FINAL 07/02/2019 Vital Signs Most recent to oldest 1 2 3 [Reference Range]: Height 173 cm 173 cm 173 cm (07/02/19 2:33 PM) (07/02/19 5:59 AM) (07/01/19 10: 18 PM) Weight 60.9 kg (06/26/19 3:24 PM) Oxygen Saturation [94-100 96 % 94 % 95 % %] (07/02/19 2:33 PM) (07/02/19 5:59 AM) (07/01/19 10: 18 PM) Pulse Rate [55-90 bpm] 83 bpm 57 bpm 68 bpm (07/02/19 2:33 PM) (07/02/19 5:59 AM) (07/01/19 10: 18 PM) Body Mass Index 20.35 [18.5-24.99] (06/26/19 3:24 PM) Blood Pressure 130/71 mm Hg 125/65 mm Hg 146/61 mm Hg [90-138/55-84 mm Hg] (07/02/19 2:33 PM) (07/02/19 5:59 AM) *H* (07/01/19 10:18 P M) Respiratory Rate [16-30 16 br/min 20 br/min 20 br/mi n br/min] (07/02/19 2:33 PM) (07/02/19 5:59 AM) (07/01/19 10: 18 PM) Temperature [96.8-100.4 97.9 DegF 97.6 DegF 98.3 Deg F DegF] (07/02/19 2:33 PM) (07/02/19 5:59 AM) (07/01/19 10: 18 PM) Liters per Minute 0 L/min (06/26/19 12:57 PM) Mode of Delivery (Oxygen) Room air Room air Room a ir (07/02/19 2:33 PM) (07/02/19 5:59 AM) (07/01/19 10: 18 PM) Blood pressure sites Arm, left Arm, left Arm, left (07/02/19 2:33 PM) (07/02/19 5:59 AM) (07/01/19 10: 18 PM) Temperature Route Oral Oral Oral (07/02/19:33 PM) (07/02/19 5:59 AM) (07/01/19 10: 18 PM) Dry Weight 60.9 kg (06/26/19 3:24 PM) Weight Obtained Via Bed scale (06/26/19 3:24 PM) Dry Weight Obtained Via Bed scale (06/26/19 3:24 PM) Sensory deficits None (06/26/19 3:24 PM) Mobility assistance Ambulate, assist of 2 (06/26/19 3:24 PM) Social History Social History Type Response Smoking Status Never smoker entered on: 01/04/15 Sex
--- OUTSIDE RECORDS SUMMARY | 2021-12-15 18:55 | XMS_ITS | Continuity of Care Document ---
:1935 Author Organization [facility] Address [address] [place] [address]- Care Team Providers Name Role Phone Meaghan SALAS, Conchita Noe Primary Care Physician Encounter [facility] [place] Date(s): 11/24/21 - 11/24/[address] [address]- Discharge Disposition: A-D/C Home Attending Physician: Moe Doll MD Admitting Physician: Moe Doll MD Referring Physician: Not on Staff, Referring [...] pneumococcal 23-valent vaccine 01/20/00 Recorded 1Result Comment: [facility]# [id number] Comment: [facility] [id number] Medications atorvastatin 20 mg oral tablet 1 tablet, By Mouth, Daily, for 90 days, # 90 tablet, 3 Refills, Physician Stop 01/06/22 14:02:00 EDT, 01/11/21 14:02:00 EDT, [facility], 173, cm, 01/11/21 13:37:00 EDT, Height, 60.9, kg, 06/26/19 16:25:00 EDT, Dry Weight Start Date: 01/11/21 Stop Date: 01/06/22 Status: Orderedlisinopril 10 mg oral tablet 10 mg, 1, tablet, By Mouth, Daily, # 90 tablet, Refills 3, Tot. Refills 3, Maintenance, 01/11/21 13:51:00 EDT, Route to Pharmacy Electronically, [facility], Partial fill upon patient requestif the prescription is for a schedule II opioid d... Start Date: 01/11/21 Stop Date: 01/06/22 Status: OrderedmetFORMIN 500 mg oral tablet 2 tablet = 1,000 mg, By Mouth, 2 times a day, # 360 tablet, 3 Refills, Maintenance, 01/11/21 13:52:00 EDT, Tablet, [facility], Partial fill upon patient [...] Maintenance, 12/02/2110:21:00 EDT, Route to Pharmacy Electronically, [id number], #30 only, 173, cm, [...] Most recent to oldest [Reference Range]: 1 Oxygen Saturation [94-100 %] 96 % (11/24/21 9:16 AM) Pulse Rate [55-90 bpm] 75 bpm (11/24/21 9:16 AM) Blood Pressure [90-138/55-84 mm Hg] 132/76 mm Hg (11/24/21 9:16 AM) Respiratory Rate [16-30 br/min] 22 br/min (11/24/21 9:16 AM) Mode of Delivery (Oxygen) Room air (11/24/21 9:16 AM) Social History Social History Type Response Smoking Status Never smoker entered on: 01/04/15 Sex Care Team PersonnelName: Conchita Harding NP Address: [address] [place] [address] [address] [place], [place] [address]
--- OUTSIDE RECORDS SUMMARY | 2021-12-15 18:55 | XMS_ITS | Continuity of Care Document ---
:1935 Author Organization [facility] Address [address] [place] [address]- Care Team Providers Name Role Phone Not on Staff, PCP Primary Care Physician Unavailable [facility] [place] Date(s): 10/22/20 - 10/22/[address] [address]- Discharge Disposition: A-D/C Walkout Attending Physician: Nash Moon MD Admitting Physician: Nash Moon MD Referring Physician: Not on Staff, Referring MD Allergies, Adverse Reactions, Alerts Substance Reaction Severity Status codeine <not entered> Active sulfADIAZINE hives Active Immunizations Given and Recorded Vaccine Date Status Refusal Reason influenza virus vaccine, inactivated1 12/26/18 Given Influenza Virus Vaccine (oldterm) 03/05/18 Recorded pneumococcal 13-valent vaccine 07/29/15 Recorded pneumococcal 23-valent vaccine 02/03/09 Recorded pneumococcal 23-valent vaccine 01/20/00 Recorded 1Result Comment: [facility] [id number] Medications atorvastatin 20 mg oral tablet See Instructions, Take 1 tablet by mouth once daily, # 30 tablet, 0 Refills, 08/03/20 13:18:00 EDT, [facility], 173, cm, 07/02/19 14:33:00 EDT, Height, 60.9, kg, 06/26/19 16:25:00 EDT, Dry Weight Start Date: 08/03/20 Status: Orderedsertraline 25 mg oral tablet 1 tablet, By Mouth, Daily, # 30 tablet, 0 Refills, Maintenance, 08/03/20 13:19:00 EDT, [facility], 173, cm, 07/02/19 14:33:00 EDT, Height, 60.9, kg, 06/26/19 16:25:00 EDT, Dry Weight Start Date: 08/03/20 Status: OrderedtraZODone 50 mg oral tablet 1, tablet, By Mouth, Daily at bedtime, # 30 tablet, Refills 0, Tot. Refills 0, Maintenance, 08/03/2112:19:00 EDT, Route to Pharmacy Electronically, [facility], #30 only, 173, [...] Most recent to oldest [Reference Range]: 1 2 Oxygen Saturation [94-100 %] 96 % 95 % (10/22/20 4:58 PM) (10/22/20 4:38 PM) Pulse Rate [55-90 bpm] 76 bpm 79 bpm (10/22/20 4:58 PM) (10/22/20 4:38 PM) Blood Pressure [90-138/55-84 mm Hg] 151/82 mm Hg *H* (10/22/20 4:58 PM) Mode of Delivery (Oxygen) Room air Room air (10/22/20 4:58 PM) (10/22/20 4:38 PM) Social History Social History Type Response Smoking Status Never smoker entered on: 01/04/15 Sex
--- OUTSIDE RECORDS SUMMARY | 2021-12-15 18:55 | XMS_ITS | Continuity of Care Document ---
:1935 Author Organization [facility] Address [address] [place] [address]- Care Team Providers Name Role Phone Meaghan SALAS, Conchita Noe Primary Care Physician [phone] Encounter [facility] [place] Date(s): 09/08/21 - 10/08/21 [facility] [address] [place] [address]- Allergies, Adverse Reactions, Alerts Substance Reaction Severity [...] pneumococcal 23-valent vaccine 01/20/00 Recorded 1Result Comment: [facility]# [id number] Comment: [facility] [id number] Medications atorvastatin 20 mg oral tablet 1 tablet, By Mouth, Daily, for 90 days, # 90 tablet, 3 Refills, Physician Stop 01/06/22 14:02:00 EDT, 01/11/21 14:02:00 EDT, [facility], 173, cm, 01/11/21 13:37:00 EDT, Height, 60.9, kg, 06/26/19 16:25:00 EDT, Dry Weight Start Date: 01/11/21 Stop Date: 01/06/22 Status: Orderedlisinopril 10 mg oral tablet 10 mg, 1, tablet, By Mouth, Daily, # 90 tablet, Refills 3, Tot. Refills 3, Maintenance, 01/11/21 13:51:00 EDT, Route to Pharmacy Electronically, [facility], Partial fill upon patient requestif the prescription is for a schedule II opioid d... Start Date: 01/11/21 Stop Date: 01/06/22 Status: OrderedmetFORMIN 500 mg oral tablet 2 tablet = 1,000 mg, By Mouth, 2 times a day, # 360 tablet, 3 Refills, Maintenance, 01/11/21 13:52:00 EDT, Tablet, [facility], Partial fill upon patient [...] Maintenance, 12/02/2110:21:00 EDT, Route to Pharmacy Electronically, [id number], #30 only, 173, cm, [...]
--- OUTSIDE RECORDS SUMMARY | 2021-12-15 18:55 | XMS_ITS | Continuity of Care Document ---
:1935 Author Organization [facility] Address [address] [place] [address]- Care Team Providers Name Role Phone Not on Staff, PCP Primary Care Physician Unavailable Encounter [facility] Date(s): 10/22/20 - 11/21/20 [facility] [address] [place] [address]- Allergies, Adverse Reactions, Alerts Substance Reaction Severity Status codeine <not entered> Active sulfADIAZINE hives Active Immunizations Given and Recorded Vaccine Date Status Refusal Reason influenza virus vaccine, inactivated1 12/26/18 Given Influenza Virus Vaccine (oldterm) 03/05/18 Recorded pneumococcal 13-valent vaccine 07/29/15 Recorded pneumococcal 23-valent vaccine 02/03/09 Recorded pneumococcal 23-valent vaccine 01/20/00 Recorded 1Result Comment: [facility] [id number] Medications atorvastatin 20 mg oral tablet 1 tablet = 20 mg, By Mouth, Daily, # 15 tablet, 0 Refills, Maintenance, 11/20/20 18:39:00 EDT, Tablet, [facility], Partial fill upon patient request if the prescription is for a schedule II opioid drug., 173, cm, 07/02/19 14:33:00 EDT, [facility]... Start Date: 11/20/20 Status: Orderedatorvastatin 20 mg oral tablet See Instructions, Take 1 tablet by mouth once daily, # 30 tablet, 0 Refills, 08/03/20 13:18:00 EDT, [facility], 173, cm, 07/02/19 14:33:00 EDT, Height, 60.9, kg, 06/26/19 16:25:00 EDT, Dry Weight Start Date: 08/03/20 Status: Orderedsertraline 25 mg oral tablet 1 tablet = 25 mg, By Mouth, Daily, # 15 tablet, 0 Refills, Maintenance, 11/20/20 18:40:00 EDT, Tablet, [facility], Partial fill upon patient request if the prescription is for a schedule II opioid drug., 173, cm, 07/02/19 14:33:00 EDT, Heig... Start Date: 11/20/20 Status: Orderedsertraline 25 mg oral tablet 1 tablet, By Mouth, Daily, # 30 tablet, 0 Refills, Maintenance, 08/03/20 13:19:00 EDT, [facility], 173, cm, 07/02/19 14:33:00 EDT, Height, 60.9, kg, 06/26/19 16:25:00 EDT, Dry Weight Start Date: 08/03/20 Status: OrderedtraZODone 50 mg oral tablet 50 mg, 1, tablet, By Mouth, Daily at bedtime, # 15 tablet, Refills 0, Tot. Refills 0, Maintenance, 11/20/20 18:41:00 EDT, Route to Pharmacy Electronically, [facility], Partial fill upon patient request if the prescription is for a schedule... Start Date: 11/20/20 Status: OrderedtraZODone 50 mg oral tablet 1, tablet, By Mouth, Daily at bedtime, # 30 tablet, Refills 0, Tot. Refills 0, Maintenance, 08/03/2112:19:00 EDT, Route to Pharmacy Electronically, [facility], #30 only, 173, cm, 07/02/19 [...]
[2021-12-15] MEDS: diphenhydrAMINE HCL 50 MG/ML VIAL IM (19:04)
[2021-12-15 19:32] VITALS: RESP 18
[2021-12-15] MEDS: Midazolam HCl/PF 2 MG/2 ML VIAL 0.5 MG IM (19:32)
[2021-12-15 20:14] VITALS: BP 164/91; PULSE 90; RESP 20; TEMP 36.2; O2SAT 98
[2021-12-15] MEDS: Midazolam HCl/PF 2 MG/2 ML VIAL 1 MG IM (20:20)
[2021-12-15 20:45] LABS: MANUAL DIFF FLAG NO
[2021-12-15 20:49] LABS: Basophils Absolute Auto 0.1 X10*3/uL (0.0-0.2); Basophils Percent Auto 0.6 % (0-2); Eosinophils Absolute Auto 0.1 X10*3/uL (0.0-0.4); Eosinophils Percent Auto 1.4 % (0-4); Hematocrit 47.9 % (37.0-47.0); Hemoglobin 16.3 g/dl (12.0-16.0); Imm Gran Abs Auto 0.03 X10*3/uL (0.00-0.03); Imm Gran Pct Auto 0.4 % (0.0-0.4); Lymphocytes Absolute Auto 2.2 X10*3/uL (1.2-4.9); Lymphocytes Percent Auto 27.4 % (20-40); Mean Corpuscular Hemoglobin 30.6 pg (27.0-33.0); Mean Platelet Volume 9.7 fL (9.4-12.3); Monocytes Percent Auto 12.3 % (2-11); Neutrophils Absolute Auto 4.6 x10*3/uL (2.0-8.3); Neutrophils Percent Auto 57.9 % (45-73); Platelet Count 247 X10*3/uL (160-400); Red Blood Count 5.32 X10*6/uL (4.20-5.50); Red Cell Distribution Width 13.6 % (11.0-16.0)
[2021-12-15 21:02] LABS: COVID-19 Test Negative (Negative); IDNOW Serial# 55D5AD1C
[2021-12-15 21:08] LABS: B Type Natriuretic Peptide 108 pg/mL (<100); Troponin-I High Sensitivity 18.4 ng/L (<3.5-17.0)
[2021-12-15 23:47] VITALS: PULSE 81; RESP 18; TEMP 36.6; O2SAT 95
[2021-12-16 02:00] VITALS: PULSE 69; RESP 19; O2SAT 100
--- NOTE | 2021-12-16 03:16 | PC.NURSE ---
Patient is alert to self only. Patient is severely agitated, uncooperative, attempting to scratch a sitter and nurse with her long nails every time when attempts made to check her vital signs, bed linen change, or offered food/fluids. Patient medicated with Versed 0.5 mg and 1 mg IM with some improvement in behavior noted after approximately 1 hr of Versed administration. Patient noticeably calmer, labs drawn and IV line placed in L AC. Patient continues to refuse vital sign checked, CT scan, or to provide a urine specimen via use of urinal, straight cath, purewick cath. Importance of vital sign monitoring and need for CT scan to assess for possible injury/assist in diagnostic conclusion explained to pt. Patient verbalized understanding, however continues to refuse. Patient requested food and fluids which has been provided for patient. 1:1 sitter at patients bedside. Will continue to monitor pt.
[2021-12-16 06:35] VITALS: RESP 18
[2021-12-16 06:37] VITALS: RESP 18
--- NOTE | 2021-12-16 07:44 | PC.NURSE ---
Attempted CT scan at this time, pt refused
--- NOTE | 2021-12-16 07:53 | PC.NURSE ---
Pt refusing vitals and EKG, will reattempt.
[2021-12-16 09:30] LABS: Troponin-I High Sensitivity 22.6 ng/L (<3.5-17.0)
[2021-12-16 09:31] VITALS: BP 161/88; PULSE 83; RESP 16; O2SAT 97
--- NOTE | 2021-12-16 09:33 | PC.NURSE ---
This RN and Dr Londono and staff to bedside, able to obtain additional blood work, EKG, urine and vitals. Pt also agreeable to eat and tolerating that at this time. Pt observer at bedside for safety at this time. Spoke to senior communications engineer Britni, who was at scene of house when pt sectioned and sent to ED. Inquiring about husbands on Sunday and if pt would be appropriate to attend that day. This RN told Britni that Sunday would be unlikely and Britni will speak to director product to reschedule to a later time. Contact for Britni [phone]. Britni also states [employer] will be going to home next week and house likely to be condemned.
[2021-12-16 09:39] LABS: Appearance Urine Turbid; Color Urine Yellow; Glucose Urine UA Negative (Negative); Leukocyte Esterase Urine Large (3+) (Negative); Nitrite Urine Positive (Negative); UMIC TRIGGER UACC YES; Urine Blood Moderate (2+) (Negative); Urine Ketones 15 mg/dL (Negative); Urine Protein 100 (2+) mg/dL (Neg-Trace)
[2021-12-16 09:43] LABS: Alanine Aminotransferase 19 U/L (0-31); Albumin Level 3.9 g/dL (3.5-5.0); Alkaline Phosphatase 73 U/L (39-117); Anion Gap 20 (12-20); Aspartate Amino Transferase 27 U/L (5-31); Bilirubin Direct 0.4 mg/dL (0.0-0.5); Blood Urea Nitrogen 18 mg/dL (9-16); Calcium 9.5 mg/dL (8.4-10.2); Carbon Dioxide 24 mmol/L (22-29); Chloride 102 mmol/L (96-108); Creatinine Clr Calc Pharmacy 42.8; Estimated Glomerular Filt Rate 56; Glucose Random 140 mg/dL (60-115); Potassium 3.5 mmol/L (3.3-5.1); Sodium 142 mmol/L (135-145); Total Protein 6.6 g/dL (6.5-8.0)
[2021-12-16 09:53] LABS: TSH reflex Free T4 0.49 uIU/mL (0.32-4.0)
--- NOTE | 2021-12-16 10:06 | PHA.MEDREC ---
Pharmacy Consult ? Medication Reconciliation Pharmacy has completed the medication reconciliation. Pt named all three medications immediately, however some have not been filled since September x 30 days; stated always took care of her meds. She also noted she has not taken anything in 5-7 days
--- NOTE | 2021-12-16 10:11 | PC.NURSE ---
ABX given for UTI, pt accepted medication
[2021-12-16 10:18] LABS: Bacteria Urine 4+ (None Seen); Hyaline Casts Urine 0-2 /LPF (0-2); Squamous Epithelial Cell Urine 0-2 /HPF (0-2); UACC Culture Trigger YES; WBC Urine >50 /HPF (0-5)
[2021-12-16] MEDS: OLANZapine 10 MG VIAL 5 MG IM (12:15)
[2021-12-16] MEDS: Midazolam HCl/PF 2 MG/2 ML VIAL IM (12:15)
[2021-12-16 13:00] VITALS: BP 159/122; PULSE 101; RESP 18; TEMP 36.6; O2SAT 93
[2021-12-16] MEDS: chlorproMAZINE HCl 25 MG/ML AMPUL 50 MG IM (14:32)
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
[2021-12-16 18:00] VITALS: BP 180/83; PULSE 86; RESP 18; TEMP 36.3; O2SAT 96
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
[2021-12-17 08:34] LABS: Alanine Aminotransferase 18 U/L (0-31); Albumin Level 3.7 g/dL (3.5-5.0); Alkaline Phosphatase 65 U/L (39-117); Anion Gap 19 (12-20); Aspartate Amino Transferase 19 U/L (5-31); Bilirubin Total 0.7 mg/dL (0.0-1.0); Blood Urea Nitrogen 25 mg/dL (9-16); Calcium 9.2 mg/dL (8.4-10.2); Carbon Dioxide 26 mmol/L (22-29); Chloride 102 mmol/L (96-108); Cholesterol 149 mg/dL; Creatinine Clr Calc Pharmacy 30.8; Estimated Glomerular Filt Rate 38; Glucose Fasting 201 mg/dL (60-99); HDL Cholesterol 33 mg/dL; LDL Cholesterol Calculated 92 mg/dl; Potassium 3.5 mmol/L (3.3-5.1); Sodium 143 mmol/L (135-145); Total Protein 6.1 g/dL (6.5-8.0); Triglycerides 123 mg/dL
--- NOTE | 2021-12-17 09:35 | P.PNPSI_ITS ---
Subjective Subjective Date of Service: 12/17/21 Reason For Visit: Mood Subjective Notes: Section 12B Interim History: The nursing staff reported the patient was been sleeping all night long, she was medicated twice IM in the afternoon due to agitation and since then she was been resting. According to the emergency room, the patient had been awake for several days. On interview the patient still sleeping and she looks very tired. Mental Status Exam Mental Status Exam Patient Appearance: Disheveled, Inappropriate and Malodorous Patient Orientation: Person Level of Consciousness: Drowsy Patient Behavior: Guarded and Belligerent Mood Description: Labile Affect Description: Angry Patient Cognition Impaired: Yes Ability to Follow Directions: Poor Speech Pattern: Perseverating Hallucinations: None Delusions: Paranoid Ideation Thought Process: Illogical and Rumination Judgement: Poor Diagnostics Vital Signs (24Hr): Vital Signs - 24 hr 12/16/21 13:00 12/16/21 18:00 Temperature 97.9 F 97.3 F Pulse Rate 101 H 86 Respiratory Rate 18 18 Blood Pressure 159/122 H 180/83 H Pulse Oximetry 93 96 Oxygen Delivery Method Room Air Room Air BMI result Body Mass Index 21.9 Labs Results: 12/15/21 20:40 12/17/21 07:58 Labs: Laboratory Results - last 48 hr 12/15/21 12/15/21 12/15/21 20:40 20:40 20:40 WBC 8.0 RBC 5.32 Hgb 16.3 H Hct 47.9 H MCV 90.0 MCH 30.6 MCHC 34.0 RDW 13.6 Plt Count 247 MPV 9.7 Immature Gran % (Auto) 0.4 Neut % (Auto) 57.9 Lymph % (Auto) 27.4 [place] % (Auto) 12.3 H Eos % (Auto) 1.4 Baso % (Auto) 0.6 Lymph # (Auto) 2.2 Ross # (Auto) 1.0 Eos # (Auto) 0.1 Baso # (Auto) 0.1 Abs Immat Gran (auto) 0.03 Absolute Neuts (auto) 4.6 Absolute Nucleated RBC 0.000 Nucleated RBC % (auto) 0.0 Sodium Potassium Chloride Carbon Dioxide Anion Gap BUN Creatinine Estim Creat Clear Calc Estimated GFR Random Glucose Fasting Glucose Calcium Magnesium Total Bilirubin Direct Bilirubin AST ALT Alkaline Phosphatase Troponin I High Sens 18.4 H B-Natriuretic Peptide 108 H Total Protein Albumin Triglycerides Cholesterol LDL Cholesterol, Calc HDL Cholesterol TSH Urine Color Urine Appearance Urine pH Ur Specific [place] Urine Protein Urine Glucose (UA) Urine Ketones Urine Blood Urine Nitrite Ur Leukocyte Esterase Urine RBC Urine WBC Ur Squamous Epith Cells Urine Bacteria Hyaline Casts COVID-19 ([facility]) Negative COVID-19 Clin Com See Note 12/15/21 12/15/21 12/16/21 20:40 Unknown 09:02 WBC RBC Hgb Hct MCV MCH MCHC RDW Plt Count MPV Immature Gran % (Auto) Neut % (Auto) Lymph % (Auto) [place] % (Auto) Eos % (Auto) Baso % (Auto) Lymph # (Auto) [place] # (Auto) Eos # (Auto) Baso # (Auto) Abs Immat Gran (auto) Absolute Neuts (auto) Absolute Nucleated RBC Nucleated RBC % (auto) Sodium Cancelled 142 Potassium Cancelled 3.5 Chloride Cancelled 102 Carbon Dioxide Cancelled 24 Anion Gap Cancelled 20 BUN Cancelled 18 H Creatinine Cancelled 0.95 Estim Creat Clear Calc Cancelled 42.8 Estimated GFR Cancelled 56 Random Glucose Cancelled 140 H Fasting Glucose Calcium Cancelled 9.5 Magnesium Cancelled 2.0 Total Bilirubin Cancelled 1.0 Direct Bilirubin 0.4 AST Cancelled 27 ALT Cancelled 19 Alkaline Phosphatase Cancelled 73 Troponin I High Sens B-Natriuretic Peptide Cancelled Total Protein Cancelled 6.6 Albumin Cancelled 3.9 Triglycerides Cholesterol LDL Cholesterol, Calc HDL Cholesterol TSH Cancelled 0.49 Urine Color Urine Appearance Urine pH Ur Specific [place] Urine Protein Urine Glucose (UA) Urine Ketones Urine Blood Urine Nitrite Ur Leukocyte Esterase Urine RBC Urine WBC Ur Squamous Epith Cells Urine Bacteria Hyaline Casts COVID-19 ([facility]) COVID-19 Clin Com 12/16/21 12/16/21 12/17/21 09:02 09:27 07:58 WBC RBC Hgb Hct MCV MCH MCHC RDW Plt Count MPV Immature Gran % (Auto) Neut % (Auto) Lymph % (Auto) [place] % (Auto) Eos % (Auto) Baso % (Auto) Lymph # (Auto) [place] # (Auto) Eos # (Auto) Baso # (Auto) Abs Immat Gran (auto) Absolute Neuts (auto) Absolute Nucleated RBC Nucleated RBC % (auto) Sodium 143 Potassium 3.5 Chloride 102 Carbon Dioxide 26 Anion Gap 19 BUN 25 H Creatinine 1.32 Estim Creat Clear Calc 30.8 Estimated GFR 38 Random Glucose Fasting Glucose 201 H Calcium 9.2 Magnesium Total Bilirubin 0.7 Direct Bilirubin AST 19 ALT 18 Alkaline Phosphatase 65 Troponin I High Sens 22.6 H B-Natriuretic Peptide Total Protein 6.1 L Albumin 3.7 Triglycerides 123 Cholesterol 149 LDL Cholesterol, Calc 92 HDL Cholesterol 33 TSH Urine Color Yellow Urine Appearance Turbid Urine pH 6.0 Ur Specific [place] 1.010 Urine Protein 100 (2+) H Urine Glucose (UA) Negative Urine Ketones 15 Urine Blood Moderate (2+) H Urine Nitrite Positive H Ur Leukocyte Esterase Large (3+) H Urine RBC 6-10 H Urine WBC >50 H Ur Squamous Epith Cells 0-2 Urine Bacteria 4+ Hyaline Casts 0-2 COVID-19 ([facility]) COVID-19 Clin Com Medications Medications Current Medications Acetaminophen (Acetaminophen 325 Mg Tablet) 650 mg PO Q6H PRN PRN Reason: Headache/Pain Mild Scale (1-3) Al Hydroxide/Mg Hydroxide (Magnesium Hydrox/Alum Hydrox 30 Ml Oral.Susp) 30 ml PO Q6H PRN PRN Reason: Heartburn/Nausea Cefuroxime Axetil (Cefuroxime Axetil 250 Mg Tablet) 250 mg PO BID [facility] Last Admin: 12/16/21 22:59 Dose: Not Given Hydroxyzine HCl (Hydroxyzine Hcl 25 Mg Tablet) 25 mg PO Q6H PRN PRN Reason: Anxiety Ketoconazole (Ketoconazole 2 % Shampoo 120 Ml Btl) 1 appl TOPICAL MoTh [facility]; Protocol Last Admin: 12/16/21 15:38 Dose: Not Given Magnesium Hydroxide (Milk Of Magnesia 30 Ml Oral.Susp) 30 ml PO DAILY PRN PRN Reason: Constipation Olanzapine (Olanzapine 5 Mg Tablet) 5 mg PO BEDTIME [facility] Last Admin: 12/16/21 23:00 Dose: Not Given Pharmacy Consult (Consult Rx Perform Med Rec) 1 each MISCELLANE ONCE PRN PRN Reason: Consult order Trazodone HCl (Trazodone Hcl 50 Mg Tablet) 50 mg PO BEDTIME PRN PRN Reason: Insomnia Allergies Allergies Allergy/AdvReac Type Severity Reaction Status Date / Time codeine Allergy Unknown Unknown Verified 12/15/21 18:29 sulfadiazine Allergy Unknown Unknown Verified 12/15/21 18:29 Assessment & Plan Assessment & Plan (1) Agitation: Status: Acute Code(s): R45.1 - Restlessness and agitation (2) Acute UTI: Status: Acute Code(s): N39.0 - Urinary tract infection, site not specified (3) Dementia: Status: Acute Code(s): F03.90 - Unspecified dementia, unspecified severity, without behavioral disturbance, psychotic disturbance, mood disturbance, and anxiety (4) Psychosis: Status: Acute Code(s): F29 - Unspecified psychosis not due to a substance or known physiological condition Plan the patient is an elderly female with very poor ADL less grossly disorganized was referred to the emergency room by the mental health social worker since she was paranoid, poorly kept and unable to take care of herself, her 6 days ago and she was unable to take care of herself. The patient apparently has been grossly disorganized and paranoid for years. Plan 1. Gather collateral information. 2. Continue with same medications. 3. Medical clearance for treatment of UTI. I spent ___20___ minutes with the patient and/or on the patient floor today, greater than?50% of which was spent counseling/coordinating care. Reason for contiued inpatient stay Substantial Risk for: inability to function, rapid decompensation and med/psych decompensation
[2021-12-17 19:45] VITALS: BP 106/72; PULSE 99; RESP 14; TEMP 36.6; O2SAT 97
--- NOTE | 2021-12-17 21:03 | PC.NURSE ---
Pt continues to refuse CT scan. Explained process and indication, pt still refused. Pt agreeable to take antibiotic for UTI after it was explained to her why it was necessary. Requesting to speak with an freight flagman she is familiar with, Luz Elena Deshpande in either [place] or [place], pt does not know further details.
[2021-12-18 06:00] VITALS: BP 133/82; PULSE 93; RESP 17; TEMP 36.8; O2SAT 94
--- NOTE | 2021-12-18 11:05 | P.PNPSI_ITS ---
Subjective Subjective Date of Service: 12/18/21 Reason For Visit: Mood Subjective Notes: Conditional Voluntary Interim History: The nursing staff reported the patient had been irritable, she refused Zyprexa last night. She stated that she wants to go home and she wants to talk with a customs and border protection officer. She has poor hearing. The nursing staff reported the UA came positive 20 she has refused antibiotics last night. On interview the patient looks disorganized with poor hearing, she wants to go home, no insight into her deficits. Mental Status Exam Mental Status Exam Patient Appearance: Well Grooomed Patient Orientation: Person Level of Consciousness: Restless Patient Behavior: Guarded and Passive Mood Description: Withdrawn Affect Description: Labile Patient Cognition Impaired: Yes Ability to Follow Directions: Poor Speech Pattern: Impoverished Hallucinations: None Delusions: Paranoid Ideation Thought Process: Distracted Thought Content: positive for [place] Judgement: Fair Diagnostics Vital Signs (24Hr): Vital Signs - 24 hr 12/17/21 19:45 12/18/21 06:00 Temperature 97.8 F 98.2 F Pulse Rate 99 93 Respiratory Rate 14 17 Blood Pressure 106/72 133/82 Pulse Oximetry 97 94 Oxygen Delivery Method Room Air Room Air BMI result Body Mass Index 21.9 Labs Results: 12/15/21 20:40 12/17/21 07:58 Labs: Laboratory Results - last 48 hr 12/17/21 07:58 Sodium 143 Potassium 3.5 Chloride 102 Carbon Dioxide 26 Anion Gap 19 BUN 25 H Creatinine 1.32 Estim Creat Clear Calc 30.8 Estimated GFR 38 Fasting Glucose 201 H Calcium 9.2 Total Bilirubin 0.7 AST 19 ALT 18 Alkaline Phosphatase 65 Total Protein 6.1 L Albumin 3.7 Triglycerides 123 Cholesterol 149 LDL Cholesterol, Calc 92 HDL Cholesterol 33 Medications Medications Current Medications Acetaminophen (Acetaminophen 325 Mg Tablet) 650 mg PO Q6H PRN PRN Reason: Headache/Pain Mild Scale (1-3) Al Hydroxide/Mg Hydroxide (Magnesium Hydrox/Alum Hydrox 30 Ml Oral.Susp) 30 ml PO Q6H PRN PRN Reason: Heartburn/Nausea Cefuroxime Axetil (Cefuroxime Axetil 250 Mg Tablet) 250 mg PO BID [facility] Last Admin: 12/18/21 08:52 Dose: 250 mg Hydroxyzine HCl (Hydroxyzine Hcl 25 Mg Tablet) 25 mg PO Q6H PRN PRN Reason: Anxiety Ketoconazole (Ketoconazole 2 % Shampoo 120 Ml Btl) 1 appl TOPICAL MoTh [facility]; Protocol Last Admin: 12/16/21 15:38 Dose: Not Given Magnesium Hydroxide (Milk Of Magnesia 30 Ml Oral.Susp) 30 ml PO DAILY PRN PRN Reason: Constipation Olanzapine (Olanzapine 5 Mg Tablet) 5 mg PO BEDTIME [facility] Last Admin: 12/17/21 21:03 Dose: Not Given Pharmacy Consult (Consult Rx Perform Med Rec) 1 each MISCELLANE ONCE PRN PRN Reason: Consult order Trazodone HCl (Trazodone Hcl 50 Mg Tablet) 50 mg PO BEDTIME PRN PRN Reason: Insomnia Allergies Allergies Allergy/AdvReac Type Severity Reaction Status Date / Time codeine Allergy Unknown Unknown Verified 12/15/21 18:29 sulfadiazine Allergy Unknown Unknown Verified 12/15/21 18:29 Assessment & Plan Assessment & Plan (1) Agitation: Status: Acute Code(s): R45.1 - Restlessness and agitation (2) Acute UTI: Status: Acute Code(s): N39.0 - Urinary tract infection, site not specified (3) Dementia: Status: Acute Code(s): F03.90 - Unspecified dementia, unspecified severity, without behavioral disturbance, psychotic disturbance, mood disturbance, and anxiety (4) Psychosis: Status: Acute Code(s): F29 - Unspecified psychosis not due to a substance or known physiological condition Plan the patient is an elderly female with very poor ADL less grossly disorganized was referred to the emergency room by the social science manager since she was paranoid, poorly kept and unable to take care of herself, her 6 days ago and she was unable to take care of herself. The patient apparently has been grossly disorganized and paranoid for years. Plan 1. Gather collateral information. 2. Continue with same medications. 3. Medical clearance for treatment of UTI. I spent ___20___ minutes with the patient and/or on the patient floor today, greater than?50% of which was spent counseling/coordinating care. Reason for contiued inpatient stay Substantial Risk for: inability to function, rapid decompensation and med/psych decompensation
[2021-12-18 18:00] VITALS: BP 137/80; PULSE 106; RESP 18; TEMP 37.1; O2SAT 96
[2021-12-18] MEDS: OLANZapine 5 MG TABLET PO (20:43)
--- NOTE | 2021-12-19 12:28 | PC.NURSE ---
This quality analyst/technical writer offered pt. a CT scan of head as it has been ordered by provider. Pt. vehemently declined this imaging. I do NOT want any pictures of my head .
--- NOTE | 2021-12-19 15:50 | HO.PSYCHPN ---
Subjective Subjective Date of Service: 12/19/21 Reason For Visit: Mood Subjective Notes: Section 7, Section 8 and Section 12B Interim History: The nursing staff reported the patient was pleasant last evening stating that she is going to be discharged tomorrow. She refused hygiene. That she refused to take antibiotics and olanzapine at night. On interview I tried to explain to the patient that she was not going to go home, that we are finding for Section 7 and 8 and apparently she had being unable to take care herself in the community. The patient adamantly denies having any problems and she got agitated. Mental Status Exam Mental Status Exam Patient Appearance: Well Grooomed Patient Orientation: Person and Situation Level of Consciousness: Disoriented and Restless Patient Behavior: Guarded and Passive Mood Description: Withdrawn Affect Description: Labile Patient Cognition Impaired: Yes Ability to Follow Directions: Fair Speech Pattern: Clear Hallucinations: None Delusions: Paranoid Ideation Thought Process: Distracted Thought Content: positive for [place] and positive for Poverty of Content Judgement: Poor Diagnostics Vital Signs (24Hr): Vital Signs - 24 hr 12/18/21 18:00 Temperature 98.8 F Pulse Rate 106 H Respiratory Rate 18 Blood Pressure 137/80 Pulse Oximetry 96 Oxygen Delivery Method Room Air BMI result Body Mass Index 21.9 Labs Results: 12/15/21 20:40 12/17/21 07:58 Medications Medications Current Medications Acetaminophen (Acetaminophen 325 Mg Tablet) 650 mg PO Q6H PRN PRN Reason: Headache/Pain Mild Scale (1-3) Al Hydroxide/Mg Hydroxide (Magnesium Hydrox/Alum Hydrox 30 Ml Oral.Susp) 30 ml PO Q6H PRN PRN Reason: Heartburn/Nausea Cefuroxime Axetil (Cefuroxime Axetil 250 Mg Tablet) 250 mg PO BID [facility] Last Admin: 12/19/21 10:44 Dose: 250 mg Hydroxyzine HCl (Hydroxyzine Hcl 25 Mg Tablet) 25 mg PO Q6H PRN PRN Reason: Anxiety Ketoconazole (Ketoconazole 2 % Shampoo 120 Ml Btl) 1 appl TOPICAL MoTh [facility]; Protocol Last Admin: 12/16/21 15:38 Dose: Not Given Magnesium Hydroxide (Milk Of Magnesia 30 Ml Oral.Susp) 30 ml PO DAILY PRN PRN Reason: Constipation Olanzapine (Olanzapine 5 Mg Tablet) 5 mg PO BEDTIME [facility] Last Admin: 12/18/21 20:43 Dose: 5 mg Pharmacy Consult (Consult Rx Perform Med Rec) 1 each MISCELLANE ONCE PRN PRN Reason: Consult order Trazodone HCl (Trazodone Hcl 50 Mg Tablet) 50 mg PO BEDTIME PRN PRN Reason: Insomnia Allergies Allergies Allergy/AdvReac Type Severity Reaction Status Date / Time codeine Allergy Unknown Unknown Verified 12/15/21 18:29 sulfadiazine Allergy Unknown Unknown Verified 12/15/21 18:29 Assessment & Plan Assessment & Plan (1) Agitation: Status: Acute Code(s): R45.1 - Restlessness and agitation (2) Acute UTI: Status: Acute Code(s): N39.0 - Urinary tract infection, site not specified (3) Dementia: Status: Acute Code(s): F03.90 - Unspecified dementia, unspecified severity, without behavioral disturbance, psychotic disturbance, mood disturbance, and anxiety (4) Psychosis: Status: Acute Code(s): F29 - Unspecified psychosis not due to a substance or known physiological condition Plan the patient is an elderly female with very poor ADL less grossly disorganized was referred to the emergency room by the director social welfare since she was paranoid, poorly kept and unable to take care of herself, her 6 days ago and she was unable to take care of herself. The patient apparently has been grossly disorganized and paranoid for years. Plan 1. Gather collateral information. 2. Continue with same medications. 3. Medical clearance for treatment of UTI. 4. Filing for sections 7 and 8 I spent ___20___ minutes with the patient and/or on the patient floor today, greater than?50% of which was spent counseling/coordinating care. Reason for contiued inpatient stay Substantial Risk for: inability to function, rapid decompensation and med/psych decompensation
[2021-12-19 18:00] VITALS: BP 126/90; PULSE 88; RESP 16; TEMP 36.9; O2SAT 95
[2021-12-20] MEDS: traZODone HCL 50 MG TABLET PO ×2 (01:33→21:41)
--- NOTE | 2021-12-20 03:15 | PC.NURSE ---
Pt alert and responsive. Has no insight to reality or situation. Anxious, irritable, and was observed pushing wheelchair to patient observer. Pt agreed to take antibiotic for UTI but refused HS zyprexa. Pt stated I am mad at the doctor. I need to go home. I can take care of myself. At approximately 0310, 1:1 staff member alerted this nurse that pt stated she received the wrong medication Pt therapeautic listening, redirection, and education provided to pt that pt in fact got the correct PRN medication for insomnia with negative effect. Patient exhibits staff splitting behavior, manipulation, and is irritable. Pt stated, I never said you gave me the wrong medication. Charge nurse made aware. Pt denies. Staff member who reported stated you just told me that . Pt exhibits staff splitting, manipulative behaviors. I want to go home. I'm mad at the doctor. Therapeutic listening and deescalation provided. Pt appears to be sleeping right now comfortably in bed with 1:1 supervision.
[2021-12-20 07:30] VITALS: BP 144/79; PULSE 74; RESP 14; TEMP 36.7; O2SAT 96
--- NOTE | 2021-12-20 15:39 | P.PNPSI_ITS ---
Subjective Subjective Date of Service: 12/20/21 Reason For Visit: Mood Subjective Notes: Conditional Voluntary Interim History: The nursing staff reported the patient has been angry and confused with very poor hygiene resistant to care. She refused to the [place] but any on the Colin test she scored 4.0. The social media job titles contact a friend and the friend reported that they have always been isolative and she was very disorganized and her . According to the report of the home staff and the friend reported that the house was in a pitiful condition, filthy with the roof falliing. Mental Status Exam Mental Status Exam Patient Appearance: Well Grooomed Patient Orientation: Person and Situation Level of Consciousness: Awake Patient Behavior: Cooperative Mood Description: Calm Affect Description: Constricted Patient Cognition Impaired: Yes Ability to Follow Directions: Good Speech Pattern: Clear Hallucinations: None Delusions: Paranoid Ideation Thought Process: Distracted Thought Content: positive for [place] Oriented Judgement: Fair Diagnostics Vital Signs (24Hr): Vital Signs - 24 hr 12/19/21 18:00 12/20/21 07:30 Temperature 98.4 F 98.0 F Pulse Rate 88 74 Respiratory Rate 16 14 Blood Pressure 126/90 H 144/79 H Pulse Oximetry 95 96 Oxygen Delivery Method Room Air Room Air BMI result Body Mass Index 21.9 Labs Results: 12/15/21 20:40 12/17/21 07:58 Medications Medications Current Medications Acetaminophen (Acetaminophen 325 Mg Tablet) 650 mg PO Q6H PRN PRN Reason: Headache/Pain Mild Scale (1-3) Al Hydroxide/Mg Hydroxide (Magnesium Hydrox/Alum Hydrox 30 Ml Oral.Susp) 30 ml PO Q6H PRN PRN Reason: Heartburn/Nausea Cefuroxime Axetil (Cefuroxime Axetil 250 Mg Tablet) 250 mg PO BID [facility] Last Admin: 12/20/21 08:00 Dose: 250 mg Hydroxyzine HCl (Hydroxyzine Hcl 25 Mg Tablet) 25 mg PO Q6H PRN PRN Reason: Anxiety Ketoconazole (Ketoconazole 2 % Shampoo 120 Ml Btl) 1 appl TOPICAL MoTh [facility]; Protocol Last Admin: 12/19/21 17:51 Dose: Not Given Magnesium Hydroxide (Milk Of Magnesia 30 Ml Oral.Susp) 30 ml PO DAILY PRN PRN Reason: Constipation Olanzapine (Olanzapine 5 Mg Tablet) 5 mg PO BEDTIME [facility] Last Admin: 12/20/21 01:30 Dose: Not Given Pharmacy Consult (Consult Rx Perform Med Rec) 1 each MISCELLANE ONCE PRN PRN Reason: Consult order Trazodone HCl (Trazodone Hcl 50 Mg Tablet) 50 mg PO BEDTIME PRN PRN Reason: Insomnia Last Admin: 12/20/21 01:33 Dose: 50 mg Allergies Allergies Allergy/AdvReac Type Severity Reaction Status Date / Time codeine Allergy Unknown Unknown Verified 12/15/21 18:29 sulfadiazine Allergy Unknown Unknown Verified 12/15/21 18:29 Assessment & Plan Assessment & Plan (1) Agitation: Status: Acute Code(s): R45.1 - Restlessness and agitation (2) Acute UTI: Status: Acute Code(s): N39.0 - Urinary tract infection, site not specified (3) Dementia: Status: Acute Code(s): F03.90 - Unspecified dementia, unspecified severity, without behavioral distur bance, psychotic disturbance, mood disturbance, and anxiety (4) Psychosis: Status: Acute Code(s): F29 - Unspecified psychosis not due to a substance or known physiological condition Plan the patient is an elderly female with very poor ADL less grossly disorganized was referred to the emergency room by the social director since she was paranoid, poorly kept and unable to take care of herself, her 6 days ago and she was unable to take care of herself. The patient apparently has been grossly disorganized and paranoid for years. Plan 1. Gather collateral information. 2. Continue with same medications. 3. Medical clearance for treatment of UTI. 4. Filing for sections 7 and 8 I spent ___20___ minutes with the patient and/or on the patient floor today, greater than?50% of which was spent counseling/coordinating care. Reason for contiued inpatient stay Substantial Risk for: inability to function, rapid decompensation and med/psych decompensation
[2021-12-20 16:36] VITALS: BP 127/89; PULSE 94; RESP 18; TEMP 36.6; O2SAT 95
--- NOTE | 2021-12-20 17:49 | PC.NURSE ---
This telegraphic typewriter installer approached pt. again today, to inquire about her agreeing to a head CT. She stated I don't care that the doctor wants me to have one, I will not agree to it ever .
[2021-12-20] MEDS: OLANZapine 5 MG TABLET PO (21:42)
--- NOTE | 2021-12-21 12:56 | HO.PSYCHPN ---
Subjective Subjective Date of Service: 12/21/21 Reason For Visit: Mood Subjective Notes: Section 12B Interim History: The nursing staff reported that she was pleasant but restless during the night. She was compliant with medications. She is still delusional, unable to understand why she is here and she gets easily agitated. The occupational therapist did an Colin test and she scored 4.0 but she refused to do the [place]. On interview the patient wanted to be discharged, I explained her that her the will be next Sunday but she cannot attend. She was very upset. Mental Status Exam Mental Status Exam Patient Appearance: Disheveled, Unkempt and Malodorous Patient Orientation: Person and Situation Level of Consciousness: Awake Patient Behavior: Guarded Mood Description: Withdrawn Affect Description: Labile Patient Cognition Impaired: Yes Ability to Follow Directions: Poor Speech Pattern: Clear Hallucinations: None Delusions: Paranoid Ideation Thought Process: Distracted Thought Content: positive for [place], positive for Obsessional Thoughts and positive for Poverty of Content Judgement: Poor Diagnostics Vital Signs (24Hr): Vital Signs - 24 hr 12/20/21 16:36 Temperature 97.8 F Pulse Rate 94 Respiratory Rate 18 Blood Pressure 127/89 Pulse Oximetry 95 Oxygen Delivery Method Room Air BMI result Body Mass Index 21.9 Labs Results: 12/15/21 20:40 12/17/21 07:58 Medications Medications Current Medications Acetaminophen (Acetaminophen 325 Mg Tablet) 650 mg PO Q6H PRN PRN Reason: Headache/Pain Mild Scale (1-3) Al Hydroxide/Mg Hydroxide (Magnesium Hydrox/Alum Hydrox 30 Ml Oral.Susp) 30 ml PO Q6H PRN PRN Reason: Heartburn/Nausea Cefuroxime Axetil (Cefuroxime Axetil 250 Mg Tablet) 250 mg PO BID [facility] Last Admin: 12/21/21 09:45 Dose: Not Given Hydroxyzine HCl (Hydroxyzine Hcl 25 Mg Tablet) 25 mg PO Q6H PRN PRN Reason: Anxiety Ketoconazole (Ketoconazole 2 % Shampoo 120 Ml Btl) 1 appl TOPICAL MoTh [facility]; Protocol Last Admin: 12/19/21 17:51 Dose: Not Given Magnesium Hydroxide (Milk Of Magnesia 30 Ml Oral.Susp) 30 ml PO DAILY PRN PRN Reason: Constipation Olanzapine (Olanzapine 5 Mg Tablet) 5 mg PO BEDTIME [facility] Last Admin: 12/20/21 21:42 Dose: 5 mg Pharmacy Consult (Consult Rx Perform Med Rec) 1 each MISCELLANE ONCE PRN PRN Reason: Consult order Trazodone HCl (Trazodone Hcl 50 Mg Tablet) 50 mg PO BEDTIME PRN PRN Reason: Insomnia Last Admin: 12/20/21 21:41 Dose: 50 mg Allergies Allergies Allergy/AdvReac Type Severity Reaction Status Date / Time codeine Allergy Unknown Unknown Verified 12/15/21 18:29 sulfadiazine Allergy Unknown Unknown Verified 12/15/21 18:29 Assessment & Plan Assessment & Plan (1) Agitation: Status: Acute Code(s): R45.1 - Restlessness and agitation (2) Acute UTI: Status: Acute Code(s): N39.0 - Urinary tract infection, site not specified (3) Dementia: Status: Acute Code(s): F03.90 - Unspecified dementia, unspecified severity, without behavioral disturbance, psychotic disturbance, mood disturbance, and anxiety (4) Psychosis: Status: Acute Code(s): F29 - Unspecified psychosis not due to a substance or known physiological condition Plan the patient is an elderly female with very poor ADL less grossly disorganized was referred to the emergency room by the social media community manager since she was paranoid, poorly kept and unable to take care of herself, her 6 days ago and she was unable to take care of herself. The patient apparently has been grossly disorganized and paranoid for years. Plan 1. Gather collateral information. 2. Continue with same medications. 3. Medical clearance for treatment of UTI. 4. Filing for sections 7 and 8 I spent ___20___ minutes with the patient and/or on the patient floor today, greater than?50% of which was spent counseling/coordinating care. Reason for contiued inpatient stay Substantial Risk for: inability to function, rapid decompensation and med/psych decompensation
[2021-12-21 18:00] VITALS: RESP 16
[2021-12-22 06:00] VITALS: BP 161/77; PULSE 75; RESP 16; TEMP 37.2; O2SAT 92
[2021-12-22] MEDS: chlorproMAZINE HCl 25 MG/ML AMPUL 50 MG IM (10:13)
[2021-12-22] MEDS: Midazolam HCl/PF 2 MG/2 ML VIAL 4 MG IM (10:14)
[2021-12-22 11:38] VITALS: BP 164/79; PULSE 72
--- NOTE | 2021-12-22 16:28 | P.PNPSI_ITS ---
Subjective Subjective Date of Service: 12/22/21 Reason For Visit: Mood Subjective Notes: Section 12B Interim History: The nursing staff reported the patient was pleasant at times but oppositional most of the time. She has refused her medications including antibiotics. And she demanded also to be discharged as soon as possible. The team approach her and explained her that she has to take a shower because she is very malodorous. She became combative, unable to be deescalated and we needed to medicated IM. Mental Status Exam Mental Status Exam Patient Appearance: Disheveled and Malodorous Patient Orientation: Person and Situation Level of Consciousness: Awake Patient Behavior: Guarded Mood Description: Withdrawn Affect Description: Labile Patient Cognition Impaired: Yes Ability to Follow Directions: Good Speech Pattern: Clear Hallucinations: Auditory Delusions: Paranoid Ideation Perceptual Disturbances: Hallucinations Thought Process: Illogical Thought Content: positive for [place] Judgement: Poor Diagnostics Vital Signs (24Hr): Vital Signs - 24 hr 12/21/21 18:00 12/22/21 06:00 12/22/21 11:38 Temperature 98.9 F Pulse Rate 75 72 Respiratory Rate 16 16 Blood Pressure 161/77 H 164/79 H Pulse Oximetry 92 Oxygen Delivery Method Room Air BMI result Body Mass Index 21.9 Labs Results: 12/15/21 20:40 12/17/21 07:58 Medications Medications Current Medications Acetaminophen (Acetaminophen 325 Mg Tablet) 650 mg PO Q6H PRN PRN Reason: Headache/Pain Mild Scale (1-3) Al Hydroxide/Mg Hydroxide (Magnesium Hydrox/Alum Hydrox 30 Ml Oral.Susp) 30 ml PO Q6H PRN PRN Reason: Heartburn/Nausea Cefuroxime Axetil (Cefuroxime Axetil 250 Mg Tablet) 250 mg PO BID [facility] Last Admin: 12/22/21 10:15 Dose: Not Given Hydroxyzine HCl (Hydroxyzine Hcl 25 Mg Tablet) 25 mg PO Q6H PRN PRN Reason: Anxiety Ketoconazole (Ketoconazole 2 % Shampoo 120 Ml Btl) 1 appl TOPICAL MoTh [facility]; Protocol Last Admin: 12/22/21 14:22 Dose: Not Given Magnesium Hydroxide (Milk Of Magnesia 30 Ml Oral.Susp) 30 ml PO DAILY PRN PRN Reason: Constipation Olanzapine (Olanzapine 5 Mg Tablet) 5 mg PO BEDTIME [facility] Last Admin: 12/21/21 22:13 Dose: Not Given Pharmacy Consult (Consult Rx Perform Med Rec) 1 each MISCELLANE ONCE PRN PRN Reason: Consult order Trazodone HCl (Trazodone Hcl 50 Mg Tablet) 50 mg PO BEDTIME PRN PRN Reason: Insomnia Last Admin: 12/20/21 21:41 Dose: 50 mg Allergies Allergies Allergy/AdvReac Type Severity Reaction Status Date / Time codeine Allergy Unknown Unknown Verified 12/15/21 18:29 sulfadiazine Allergy Unknown Unknown Verified 12/15/21 18:29 Assessment & Plan Assessment & Plan (1) Agitation: Status: Acute Code(s): R45.1 - Restlessness and agitation (2) Acute UTI: Status: Acute Code(s): N39.0 - Urinary tract infection, site not specified (3) Dementia: Status: Acute Code(s): F03.90 - Unspecified dementia, unspecified severity, without behavioral disturbance, psychotic disturbance, mood disturbance, and anxiety (4) Psychosis: Status: Acute Code(s): F29 - Unspecified psychosis not due to a substance or known physiological condition Plan the patient is an elderly female with very poor ADL less grossly disorganized was referred to the emergency room by the social security assessor since she was paranoid, poorly kept and unable to take care of herself, her 6 days ago and she was unable to take care of herself. The patient apparently has been grossly disorganized and paranoid for years. Plan 1. Gather collateral information. 2. Continue with same medications. 3. Medical clearance for treatment of UTI. 4. Filing for sections 7 and 8 5. We needed to call a code and chemically restrain her since she was agitated and she was resistant to care. I spent minutes with the patient and/or on the patient floor today, greater than?50% of which was spent counseling/coordinating care. Reason for contiued inpatient stay Substantial Risk for: inability to function, rapid decompensation and med/psych decompensation
[2021-12-22 18:00] VITALS: BP 136/76; PULSE 84; RESP 18; TEMP 36.2; O2SAT 95
[2021-12-22] MEDS: OLANZapine 5 MG TABLET PO (22:58)
[2021-12-23 09:11] VITALS: RESP 16
--- NOTE | 2021-12-23 12:12 | HO.PSYCHPN ---
Subjective Subjective Date of Service: 12/23/21 Reason For Visit: Mood Subjective Notes: Conditional Voluntary Interim History: Pt upset the fact that her and she will not be able to go to . Limited to no insight into her memory/cognitive impairments that led to her house being condemned. Pt denies SI/HI. mostly irritable mood. Medication Compliance: No Review of Systems Review of Systems Yes Unobtainable due to mental status Mental Status Exam Mental Status Exam Patient Appearance: Disheveled and Malodorous Patient Orientation: Person and Situation Level of Consciousness: Awake Patient Behavior: Guarded Mood Description: Withdrawn Affect Description: Labile Patient Cognition Impaired: Yes Ability to Follow Directions: Good Speech Pattern: Clear Diagnostics Vital Signs (24Hr): Vital Signs - 24 hr 12/23/21 18:00 Temperature 98.9 F Pulse Rate 80 Respiratory Rate 18 Blood Pressure 106/82 Pulse Oximetry 96 Oxygen Delivery Method Room Air BMI result Body Mass Index 21.9 Labs Results: 12/15/21 20:40 12/17/21 07:58 Medications Medications Current Medications Acetaminophen (Acetaminophen 325 Mg Tablet) 650 mg PO Q6H PRN PRN Reason: Headache/Pain Mild Scale (1-3) Al Hydroxide/Mg Hydroxide (Magnesium Hydrox/Alum Hydrox 30 Ml Oral.Susp) 30 ml PO Q6H PRN PRN Reason: Heartburn/Nausea Cefuroxime Axetil (Cefuroxime Axetil 250 Mg Tablet) 250 mg PO BID [facility] Last Admin: 12/23/21 21:07 Dose: 250 mg Hydroxyzine HCl (Hydroxyzine Hcl 25 Mg Tablet) 25 mg PO Q6H PRN PRN Reason: Anxiety Ketoconazole (Ketoconazole 2 % Shampoo 120 Ml Btl) 1 appl TOPICAL MoTh [facility]; Protocol Last Admin: 12/22/21 14:22 Dose: Not Given Magnesium Hydroxide (Milk Of Magnesia 30 Ml Oral.Susp) 30 ml PO DAILY PRN PRN Reason: Constipation Olanzapine (Olanzapine 5 Mg Tablet) 5 mg PO BEDTIME [facility] Last Admin: 12/23/21 21:08 Dose: Not Given Pharmacy Consult (Consult Rx Perform Med Rec) 1 each MISCELLANE ONCE PRN PRN Reason: Consult order Trazodone HCl (Trazodone Hcl 50 Mg Tablet) 50 mg PO BEDTIME PRN PRN Reason: Insomnia Last Admin: 12/24/21 00:44 Dose: 50 mg Allergies Allergies Allergy/AdvReac Type Severity Reaction Status Date / Time codeine Allergy Unknown Unknown Verified 12/15/21 18:29 sulfadiazine Allergy Unknown Unknown Verified 12/15/21 18:29 Assessment & Plan Assessment & Plan (1) Dementia: Status: Acute Code(s): F03.90 - Unspecified dementia, unspecified severity, without behavioral disturbance, psychotic disturbance, mood disturbance, and anxiety Plan the patient is an elderly female with very poor ADL less grossly disorganized was referred to the emergency room by the medical social consultant since she was paranoid, poorly kept and unable to take care of herself, her 6 days ago and she was unable to take care of herself. The patient apparently has been grossly disorganized and paranoid for years. Plan 1. Gather collateral information. 2. Continue with same medications. 3. Medical clearance for treatment of UTI. 4. Filing for sections 7 and 8 5. We needed to call a code and chemically restrain her since she was agitated and she was resistant to care. 12/23 continue current tx. I spent minutes with the patient and/or on the patient floor today, greater than?50% of which was spent counseling/coordinating care. Reason for contiued inpatient stay Substantial Risk for: inability to function
[2021-12-23 18:00] VITALS: BP 106/82; PULSE 80; RESP 18; TEMP 37.2; O2SAT 96
[2021-12-24] MEDS: traZODone HCL 50 MG TABLET PO ×2 (00:44→23:01)
[2021-12-24 06:00] VITALS: BP 167/70; PULSE 79; TEMP 37.1; O2SAT 98
--- NOTE | 2021-12-24 17:03 | HO.PSYCHPN ---
Subjective Subjective Date of Service: 12/24/21 Reason For Visit: Mood Subjective Notes: Section 12B Interim History: Betzaida is out on the terrace with peers and team. She is engaged, pleasant, with good eye contact, spontaneous smile (polite), however shares that she has some heavy burdens-she recently lost her and he will be buried next week. Pt reports she is leaving to take this responsibility (they will video this for her). She also believes that men will take her home. She states she needs to protect it (home is in a very deconditioned state-needing a roof). She engages very well and compliments her team, stating she is wanting to have them return with her to her home. It is clear she has much on her mind but is very engaging with conversation in consideration of current confusion. Medication Compliance: Yes Side effects from medications: No Attending Groups: No Review of Systems Acute medical concerns: No Medical Review of Systems: unchanged Mental Status Exam Mental Status Exam Patient Appearance: Disheveled and Malodorous Patient Orientation: Person, Place and Situation Level of Consciousness: Awake and Alert Patient Behavior: Talkative and Good Eye Contact Mood Description: Anxious, Sad, Nervous and Apprehensive Affect Description: Labile and Flat Patient Cognition Impaired: Yes Ability to Follow Directions: Good Speech Pattern: Clear and Spontaneous Speech Memory Description: Remote Impaired and Episodic Impaired Hallucinations: None Delusions: Not Present Thought Process: Rumination Thought Content: positive for Tangential Judgement: Poor Diagnostics Vital Signs (24Hr): Vital Signs - 24 hr 12/23/21 18:00 12/24/21 06:00 Temperature 98.9 F 98.7 F Pulse Rate 80 79 Respiratory Rate 18 Blood Pressure 106/82 167/70 H Pulse Oximetry 96 98 Oxygen Delivery Method Room Air Room Air BMI result Body Mass Index 21.9 Labs Results: 12/15/21 20:40 12/17/21 07:58 Medications Medications Current Medications Acetaminophen (Acetaminophen 325 Mg Tablet) 650 mg PO Q6H PRN PRN Reason: Headache/Pain Mild Scale (1-3) Al Hydroxide/Mg Hydroxide (Magnesium Hydrox/Alum Hydrox 30 Ml Oral.Susp) 30 ml PO Q6H PRN PRN Reason: Heartburn/Nausea Cefuroxime Axetil (Cefuroxime Axetil 250 Mg Tablet) 250 mg PO BID TIMOTEO Last Admin: 12/24/21 09:18 Dose: 250 mg Hydroxyzine HCl (Hydroxyzine Hcl 25 Mg Tablet) 25 mg PO Q6H PRN PRN Reason: Anxiety Ketoconazole (Ketoconazole 2 % Shampoo 120 Ml Btl) 1 appl TOPICAL MoTh TIMOTEO; Protocol Last Admin: 12/22/21 14:22 Dose: Not Given Magnesium Hydroxide (Milk Of Magnesia 30 Ml Oral.Susp) 30 ml PO DAILY PRN PRN Reason: Constipation Olanzapine (Olanzapine 5 Mg Tablet) 5 mg PO BEDTIME TIMOTEO Last Admin: 12/23/21 21:08 Dose: Not Given Pharmacy Consult (Consult Rx Perform Med Rec) 1 each MISCELLANE ONCE PRN PRN Reason: Consult order Trazodone HCl (Trazodone Hcl 50 Mg Tablet) 50 mg PO BEDTIME PRN PRN Reason: Insomnia Last Admin: 12/24/21 00:44 Dose: 50 mg Allergies Allergies Allergy/AdvReac Type Severity Reaction Status Date / Time codeine Allergy Unknown Unknown Verified 12/15/21 18:29 sulfadiazine Allergy Unknown Unknown Verified 12/15/21 18:29 Assessment & Plan Assessment & Plan (1) Dementia: Status: Acute Code(s): F03.90 - Unspecified dementia, unspecified severity, without behavioral disturbance, psychotic disturbance, mood disturbance, and anxiety Plan the patient is an elderly female with very poor ADL less grossly disorganized was referred to the emergency room by the social work assistant since she was paranoid, poorly kept and unable to take care of herself, her 6 days ago and she was unable to take care of herself. The patient apparently has been grossly disorganized and paranoid for years. Plan 1. Gather collateral information. 2. Continue with same medications. 3. Medical clearance for treatment of UTI. 4. Filing for sections 7 and 8 5. We needed to call a code and chemically restrain her since she was agitated and she was resistant to care. 12/23 continue current tx. 12/24/21- Continue current plan of care. I spent minutes with the patient and/or on the patient floor today, greater than?50% of which was spent counseling/coordinating care. Informed Consent: does not understand Reason for contiued inpatient stay Substantial Risk for: harm to self, inability to function, rapid decompensation and med/psych decompensation
[2021-12-24 18:00] VITALS: BP 158/68; PULSE 75; RESP 18; TEMP 37.3; O2SAT 94
[2021-12-25 06:00] VITALS: BP 161/75; PULSE 72; TEMP 36.7; O2SAT 95
--- NOTE | 2021-12-25 16:52 | HO.PSYCHPN ---
Subjective Subjective Date of Service: 12/25/21 Reason For Visit: Mood Interim History: Active grieving, worry about her home and belongings, including her check book, certificate, hearing aide. She has written a long letter of explanation to her team, asking to leave to have her buried. Cried as she described her witnessing of his passing, as she felt abruptly removed from her home by police and treated poorly. Finds the milieu and team of great comfort and support to her. Pt did meet with her commercial attorney on 12/24 and team report she did become angry and upset as she was under the impression he could allow her to discharge to her home. Very difficult to console today, however, accepting of support. Medication Compliance: Yes Side effects from medications: No Attending Groups: Yes Review of Systems Acute medical concerns: No Medical Review of Systems: unchanged Mental Status Exam Mental Status Exam Patient Appearance: Disheveled and Malodorous Patient Orientation: Person, Place and Situation Level of Consciousness: Awake and Alert Patient Behavior: Talkative and Good Eye Contact Mood Description: Anxious, Sad, Nervous and Apprehensive Affect Description: Labile and Flat Patient Cognition Impaired: Yes Ability to Follow Directions: Good Speech Pattern: Clear and Spontaneous Speech Memory Description: Remote Impaired and Episodic Impaired Hallucinations: None Delusions: Not Present Thought Process: Rumination Thought Content: positive for Tangential Judgement: Poor Diagnostics Vital Signs (24Hr): Vital Signs - 24 hr 12/24/21 18:00 12/25/21 06:00 Temperature 99.2 F 98.1 F Pulse Rate 75 72 Respiratory Rate 18 Blood Pressure 158/68 H 161/75 H Pulse Oximetry 94 95 Oxygen Delivery Method Room Air Room Air BMI result Body Mass Index 21.9 Labs Results: 12/15/21 20:40 12/17/21 07:58 Medications Medications Current Medications Acetaminophen (Acetaminophen 325 Mg Tablet) 650 mg PO Q6H PRN PRN Reason: Headache/Pain Mild Scale (1-3) Al Hydroxide/Mg Hydroxide (Magnesium Hydrox/Alum Hydrox 30 Ml Oral.Susp) 30 ml PO Q6H PRN PRN Reason: Heartburn/Nausea Cefuroxime Axetil (Cefuroxime Axetil 250 Mg Tablet) 250 mg PO BID TIMOTEO Last Admin: 12/25/21 08:16 Dose: Not Given Hydroxyzine HCl (Hydroxyzine Hcl 25 Mg Tablet) 25 mg PO Q6H PRN PRN Reason: Anxiety Ketoconazole (Ketoconazole 2 % Shampoo 120 Ml Btl) 1 appl TOPICAL MoTh TIMOTEO; Protocol Last Admin: 12/22/21 14:22 Dose: Not Given Magnesium Hydroxide (Milk Of Magnesia 30 Ml Oral.Susp) 30 ml PO DAILY PRN PRN Reason: Constipation Olanzapine (Olanzapine 5 Mg Tablet) 5 mg PO BEDTIME TIMOTEO Last Admin: 12/24/21 21:08 Dose: Not Given Pharmacy Consult (Consult Rx Perform Med Rec) 1 each MISCELLANE ONCE PRN PRN Reason: Consult order Trazodone HCl (Trazodone Hcl 50 Mg Tablet) 50 mg PO BEDTIME PRN PRN Reason: Insomnia Last Admin: 12/24/21 23:01 Dose: 50 mg Allergies Allergies Allergy/AdvReac Type Severity Reaction Status Date / Time codeine Allergy Unknown Unknown Verified 12/15/21 18:29 sulfadiazine Allergy Unknown Unknown Verified 12/15/21 18:29 Assessment & Plan Assessment & Plan (1) Dementia: Status: Acute Code(s): F03.90 - Unspecified dementia, unspecified severity, without behavioral disturbance, psychotic disturbance, mood disturbance, and anxiety Plan the patient is an elderly female with very poor ADL less grossly disorganized was referred to the emergency room by the rn social services since she was paranoid, poorly kept and unable to take care of herself, her 6 days ago and she was unable to take care of herself. The patient apparently has been grossly disorganized and paranoid for years. Plan 1. Gather collateral information. 2. Continue with same medications. 3. Medical clearance for treatment of UTI. 4. Filing for sections 7 and 8 5. We needed to call a code and chemically restrain her since she was agitated and she was resistant to care. 12/23 continue current tx. 12/24/21- Continue current plan of care. 12/25/21- Continue to offer supportive care I spent minutes with the patient and/or on the patient floor today, greater than?50% of which was spent counseling/coordinating care. Patient educated on: other Informed Consent: does not understand Reason for contiued inpatient stay Substantial Risk for: med/psych decompensation
[2021-12-25 18:00] VITALS: BP 150/72; PULSE 78; RESP 18; TEMP 36.3; O2SAT 96
[2021-12-25] MEDS: OLANZapine 5 MG TABLET PO (20:17)
[2021-12-25] MEDS: traZODone HCL 50 MG TABLET PO (20:21)
[2021-12-26 06:00] VITALS: BP 188/79; PULSE 70; RESP 14; TEMP 36.3; O2SAT 95
--- NOTE | 2021-12-26 17:02 | P.PNPSI_ITS ---
Subjective Subjective Date of Service: 12/26/21 Reason For Visit: Mood Interim History: Agitated at times. Napping in the milieu when approached. Talks of her experience of the loss of her . Expresses her stress and worry about having issues unsettled in her home. Worries her home will be taken. Continues to discuss her grief and stressors of loss of and potential loss of home with the team. Team reports Section VII to be filed to continue safe care. Pt has no known fam brigido to assist at this time. Mental Status Exam Mental Status Exam Patient Appearance: Disheveled Patient Orientation: Person, Place and Situation Level of Consciousness: Sedated and Alert Patient Behavior: Talkative, Asleep and Good Eye Contact Mood Description: Anxious, Angry, Sad, Nervous and Apprehensive Affect Description: Labile and Sad Patient Cognition Impaired: Yes Ability to Follow Directions: Good Speech Pattern: Clear and Spontaneous Speech Memory Description: Remote Impaired and Episodic Impaired Hallucinations: None Delusions: Not Present Thought Process: Rumination Thought Content: positive for Tangential Judgement: Poor Diagnostics Vital Signs (24Hr): Vital Signs - 24 hr 12/25/21 18:00 Temperature 97.4 F Pulse Rate 78 Respiratory Rate 18 Blood Pressure 150/72 H Pulse Oximetry 96 Oxygen Delivery Method Room Air BMI result Body Mass Index 21.9 Labs Results: 12/15/21 20:40 12/17/21 07:58 Medications Medications Current Medications Acetaminophen (Acetaminophen 325 Mg Tablet) 650 mg PO Q6H PRN PRN Reason: Headache/Pain Mild Scale (1-3) Al Hydroxide/Mg Hydroxide (Magnesium Hydrox/Alum Hydrox 30 Ml Oral.Susp) 30 ml PO Q6H PRN PRN Reason: Heartburn/Nausea Hydroxyzine HCl (Hydroxyzine Hcl 25 Mg Tablet) 25 mg PO Q6H PRN PRN Reason: Anxiety Ketoconazole (Ketoconazole 2 % Shampoo 120 Ml Btl) 1 appl TOPICAL MoTh TIMOTEO; Protocol Last Admin: 12/22/21 14:22 Dose: Not Given Magnesium Hydroxide (Milk Of Magnesia 30 Ml Oral.Susp) 30 ml PO DAILY PRN PRN Reason: Constipation Olanzapine (Olanzapine 5 Mg Tablet) 5 mg PO BEDTIME TIMOTEO Last Admin: 12/25/21 20:17 Dose: 5 mg Pharmacy Consult (Consult Rx Perform Med Rec) 1 each MISCELLANE ONCE PRN PRN Reason: Consult order Trazodone HCl (Trazodone Hcl 50 Mg Tablet) 50 mg PO BEDTIME PRN PRN Reason: Insomnia Last Admin: 12/25/21 20:21 Dose: 50 mg Allergies Allergies Allergy/AdvReac Type Severity Reaction Status Date / Time codeine Allergy Unknown Unknown Verified 12/15/21 18:29 sulfadiazine Allergy Unknown Unknown Verified 12/15/21 18:29 Assessment & Plan Assessment & Plan (1) Dementia: Status: Acute Code(s): F03.90 - Unspecified dementia, unspecified severity, without behavioral disturbance, psychotic disturbance, mood disturbance, and anxiety Plan the patient is an elderly female with very poor ADL less grossly disorganized was referred to the emergency room by the social staff worker since she was paranoid, poorly kept and unable to take care of herself, her 6 days ago and she was unable to take care of herself. The patient apparently has been grossly disorganized and paranoid for years. Plan 1. Gather collateral information. 2. Continue with same medications. 3. Medical clearance for treatment of UTI. 4. Filing for sections 7 and 8 5. We needed to call a code and chemically restrain her since she was agitated and she was resistant to care. 12/23 continue current tx. 12/24/21- Continue current plan of care. 12/25/21- Continue to offer supportive care 12/26/21- Pt appears to have benefit from the support of the team and milieu. She is expressing her grief and worry, along with agitation I spent minutes with the patient and/or on the patient floor today, greater than?50% of which was spent counseling/coordinating care. Informed Consent: does not understand Reason for contiued inpatient stay Substantial Risk for: med/psych decompensation
[2021-12-26 18:00] VITALS: BP 136/86; PULSE 75; RESP 16; TEMP 36.6; O2SAT 98
[2021-12-26] MEDS: OLANZapine 5 MG TABLET PO (20:12)
[2021-12-26] MEDS: traZODone HCL 50 MG TABLET PO (20:13)
[2021-12-27 10:30] VITALS: RESP 17
--- NOTE | 2021-12-27 17:49 | P.PNPSI_ITS ---
Subjective Subjective Date of Service: 12/27/21 Reason For Visit: Mood Subjective Notes: Section 12B Interim History: The nursing staff reported the patient has been agitated the times she even threatened summer with her walker. She had been of one-to-one. Apparently she had been fully compliant with olanzapine at night and trazodone. On interview the patient brought me a letter explaining that she wants to be discharged she wants to go out to the of her is today at 10:00 o'clock. The patient cannot understand why she cannot take care of herself and she does not cough social support even though that she elects that she has family around. She remains confused and unable to take care of herself. She stated that the major of was [place] wants to take her property and she had been paranoid on this years. Mental Status Exam Mental Status Exam Patient Appearance: Appropriate Patient Orientation: Person and Situation Level of Consciousness: Disoriented Patient Behavior: Guarded and Passive Mood Description: Withdrawn and Labile Affect Description: Constricted Patient Cognition Impaired: Yes Ability to Follow Directions: Fair Speech Pattern: Clear Hallucinations: None and Auditory Delusions: Paranoid Ideation Diagnostics Vital Signs (24Hr): Vital Signs - 24 hr 12/26/21 18:00 12/27/21 10:30 Temperature 97.8 F Pulse Rate 75 Respiratory Rate 16 17 Blood Pressure 136/86 Pulse Oximetry 98 Oxygen Delivery Method Room Air BMI result Body Mass Index 21.9 Labs Results: 12/15/21 20:40 12/17/21 07:58 Medications Medications Current Medications Acetaminophen (Acetaminophen 325 Mg Tablet) 650 mg PO Q6H PRN PRN Reason: Headache/Pain Mild Scale (1-3) Al Hydroxide/Mg Hydroxide (Magnesium Hydrox/Alum Hydrox 30 Ml Oral.Susp) 30 ml PO Q6H PRN PRN Reason: Heartburn/Nausea Hydroxyzine HCl (Hydroxyzine Hcl 25 Mg Tablet) 25 mg PO Q6H PRN PRN Reason: Anxiety Ketoconazole (Ketoconazole 2 % Shampoo 120 Ml Btl) 1 appl TOPICAL MoTh TIMOTEO; Protocol Last Admin: 12/26/21 18:39 Dose: Not Given Magnesium Hydroxide (Milk Of Magnesia 30 Ml Oral.Susp) 30 ml PO DAILY PRN PRN Reason: Constipation Olanzapine (Olanzapine 5 Mg Tablet) 5 mg PO BEDTIME TIMOTEO Last Admin: 12/26/21 20:12 Dose: 5 mg Pharmacy Consult (Consult Rx Perform Med Rec) 1 each MISCELLANE ONCE PRN PRN Reason: Consult order Trazodone HCl (Trazodone Hcl 50 Mg Tablet) 50 mg PO BEDTIME PRN PRN Reason: Insomnia Last Admin: 12/26/21 20:13 Dose: 50 mg Allergies Allergies Allergy/AdvReac Type Severity Reaction Status Date / Time codeine Allergy Unknown Unknown Verified 12/15/21 18:29 sulfadiazine Allergy Unknown Unknown Verified 12/15/21 18:29 Assessment & Plan Assessment & Plan (1) Dementia: Status: Acute Code(s): F03.90 - Unspecified dementia, unspecified severity, without behavioral disturbance, psychotic disturbance, mood disturbance, and anxiety Plan the patient is an elderly female with very poor ADL less grossly disorganized was referred to the emergency room by the adoption social worker since she was paranoid, poorly kept and unable to take care of herself, her 6 days ago and she was unable to take care of herself. The patient apparently has been grossly disorganized and paranoid for years. Plan 1. Gather collateral information. 2. Continue with same medications. 3. Medical clearance for treatment of UTI. 4. Filing for sections 7 and 8 5. We needed to call a code and chemically restrain her since she was agitated and she was resistant to care. 6. Continue with antipsychotics I spent __20____ minutes with the patient and/or on the patient floor today, gr eater than?50% of which was spent counseling/coordinating care. Reason for contiued inpatient stay Substantial Risk for: inability to function, rapid decompensation and med/psych decompensation
[2021-12-27 18:00] VITALS: BP 174/81; PULSE 71; RESP 18; TEMP 37.1; O2SAT 95
[2021-12-27] MEDS: traZODone HCL 50 MG TABLET PO (21:32)
[2021-12-28 06:00] VITALS: BP 140/70; PULSE 68; RESP 16; TEMP 36.9; O2SAT 98
--- NOTE | 2021-12-28 15:12 | P.PNPSI_ITS ---
Subjective Subjective Date of Service: 12/28/21 Reason For Visit: Mood Subjective Notes: Conditional Voluntary Interim History: The nursing staff reported the patient was very tearful yesterday he to the of her over soon. She refused medications yesterday. The occupational therapist is building therapeutic [place] with the patient. On interview the patient reports that she wants to be discharged and will have a court hearing tomorrow. Mental Status Exam Mental Status Exam Patient Appearance: Well Grooomed Patient Orientation: Person and Situation Level of Consciousness: Awake Patient Behavior: Cooperative Mood Description: Calm Affect Description: Constricted Patient Cognition Impaired: Yes Ability to Follow Directions: Good Speech Pattern: Clear Hallucinations: None Delusions: Paranoid Ideation Thought Process: Distracted Thought Content: positive for [place] Judgement: Fair Diagnostics Vital Signs (24Hr): Vital Signs - 24 hr 12/27/21 18:00 12/28/21 06:00 Temperature 98.7 F 98.4 F Pulse Rate 71 68 Respiratory Rate 18 16 Blood Pressure 174/81 H 140/70 H Pulse Oximetry 95 98 Oxygen Delivery Method Room Air Room Air BMI result Body Mass Index 21.9 Labs Results: 12/15/21 20:40 12/17/21 07:58 Medications Medications Current Medications Acetaminophen (Acetaminophen 325 Mg Tablet) 650 mg PO Q6H PRN PRN Reason: Headache/Pain Mild Scale (1-3) Al Hydroxide/Mg Hydroxide (Magnesium Hydrox/Alum Hydrox 30 Ml Oral.Susp) 30 ml PO Q6H PRN PRN Reason: Heartburn/Nausea Hydroxyzine HCl (Hydroxyzine Hcl 25 Mg Tablet) 25 mg PO Q6H PRN PRN Reason: Anxiety Ketoconazole (Ketoconazole 2 % Shampoo 120 Ml Btl) 1 appl TOPICAL MoTh TIMOTEO; Protocol Last Admin: 12/26/21 18:39 Dose: Not Given Magnesium Hydroxide (Milk Of Magnesia 30 Ml Oral.Susp) 30 ml PO DAILY PRN PRN Reason: Constipation Olanzapine (Olanzapine 5 Mg Tablet) 5 mg PO BEDTIME TIMOTEO Last Admin: 12/28/21 02:30 Dose: Not Given Pharmacy Consult (Consult Rx Perform Med Rec) 1 each MISCELLANE ONCE PRN PRN Reason: Consult order Trazodone HCl (Trazodone Hcl 50 Mg Tablet) 50 mg PO BEDTIME PRN PRN Reason: Insomnia Last Admin: 12/27/21 21:32 Dose: 50 mg Allergies Allergies Allergy/AdvReac Type Severity Reaction Status Date / Time codeine Allergy Unknown Unknown Verified 12/15/21 18:29 sulfadiazine Allergy Unknown Unknown Verified 12/15/21 18:29 Assessment & Plan Assessment & Plan (1) Dementia: Status: Acute Code(s): F03.90 - Unspecified dementia, unspecified severity, without behavioral disturbance, psychotic disturbance, mood disturbance, and anxiety Plan the patient is an elderly female with very poor ADL less grossly disorganized was referred to the emergency room by the social service agency director since she was paranoid, poorly kept and unable to take care of herself, her 6 days ago and she was unable to take care of herself. The patient apparently has been grossly disorganized and paranoid for years. Plan 1. Gather collateral information. 2. Continue with same medications. 3. Medical clearance for treatment of UTI. 4. Filing for sections 7 and 8 5. We needed to call a code and chemically restrain her since she was agitated and she was resistant to care. 6. Continue with antipsychotics. 7. Court hearing for tomorrow for Section 7 and 8 I spent ___20___ minutes with the patient and/or on the patient floor today, greater than?50% of which was spent counseling/coordinating care. Reason for contiued inpatient stay Substantial Risk for: inability to function, rapid decompensation and med/psych decompensation
[2021-12-28 18:00] VITALS: BP 168/69; PULSE 74; RESP 14; TEMP 37.2; O2SAT 98
[2021-12-28] MEDS: OLANZapine 5 MG TABLET PO (20:11)
--- NOTE | 2021-12-29 14:02 | HO.PSYCHPN ---
Subjective Subjective Date of Service: 12/29/21 Reason For Visit: Mood Interim History: The nursing staff reported that the patient was less agitated after the . The occupational therapy reported that ADD ACLS and she scored 4.0 but she refused to finish the [place] test. Today we have court regarding Section 7 and 8. The patient remains grossly psychotic and paranoid against the major of was [place] Mental Status Exam Mental Status Exam Patient Appearance: Unkempt Patient Orientation: Person and Situation Level of Consciousness: Appropriate Patient Behavior: Guarded Mood Description: Calm Affect Description: Labile Patient Cognition Impaired: Yes Ability to Follow Directions: Fair Speech Pattern: Clear Hallucinations: None Delusions: Paranoid Ideation Thought Process: Illogical Thought Content: positive for [place] and positive for Circumstantial Judgement: Poor Diagnostics Vital Signs (24Hr): Vital Signs - 24 hr 12/28/21 18:00 Temperature 98.9 F Pulse Rate 74 Respiratory Rate 14 Blood Pressure 168/69 H Pulse Oximetry 98 Oxygen Delivery Method Room Air BMI result Body Mass Index 21.9 Labs Results: 12/15/21 20:40 12/17/21 07:58 Medications Medications Current Medications Acetaminophen (Acetaminophen 325 Mg Tablet) 650 mg PO Q6H PRN PRN Reason: Headache/Pain Mild Scale (1-3) Al Hydroxide/Mg Hydroxide (Magnesium Hydrox/Alum Hydrox 30 Ml Oral.Susp) 30 ml PO Q6H PRN PRN Reason: Heartburn/Nausea Hydroxyzine HCl (Hydroxyzine Hcl 25 Mg Tablet) 25 mg PO Q6H PRN PRN Reason: Anxiety Ketoconazole (Ketoconazole 2 % Shampoo 120 Ml Btl) 1 appl TOPICAL MoTh TIMOTEO; Protocol Last Admin: 12/26/21 18:39 Dose: Not Given Magnesium Hydroxide (Milk Of Magnesia 30 Ml Oral.Susp) 30 ml PO DAILY PRN PRN Reason: Constipation Olanzapine (Olanzapine 5 Mg Tablet) 5 mg PO BEDTIME TIMOTEO Last Admin: 12/28/21 20:11 Dose: 5 mg Pharmacy Consult (Consult Rx Perform Med Rec) 1 each MISCELLANE ONCE PRN PRN Reason: Consult order Trazodone HCl (Trazodone Hcl 50 Mg Tablet) 50 mg PO BEDTIME PRN PRN Reason: Insomnia Last Admin: 12/27/21 21:32 Dose: 50 mg Allergies Allergies Allergy/AdvReac Type Severity Reaction Status Date / Time codeine Allergy Unknown Unknown Verified 12/15/21 18:29 sulfadiazine Allergy Unknown Unknown Verified 12/15/21 18:29 Assessment & Plan Assessment & Plan (1) Dementia: Status: Acute Code(s): F03.90 - Unspecified dementia, unspecified severity, without behavioral disturbance, psychotic disturbance, mood disturbance, and anxiety Plan the patient is an elderly female with very poor ADL less grossly disorganized was referred to the emergency room by the social organization professor since she was paranoid, poorly kept and unable to take care of herself, her 6 days ago and she was unable to take care of herself. The patient apparently has been grossly disorganized and paranoid for years. Plan 1. Gather collateral information. 2. Continue with same medications. 3. Medical clearance for treatment of UTI. 4. Filing for sections 7 and 8 5. We needed to call a code and chemically restrain her since she was agitated and she was resistant to care. 6. Continue with antipsychotics. 7. Court hearing for tomorrow for Section 7 and 8 I spent __20____ minutes with the patient and/or on the patient floor today, greater than?50% of which was spent counseling/coordinating care. Reason for contiued inpatient stay Substantial Risk for: inability to function, rapid decompensation and med/psych decompensation
[2021-12-29 18:00] VITALS: BP 159/67; PULSE 82; RESP 18; TEMP 36.7; O2SAT 94
[2021-12-29] MEDS: traZODone HCL 50 MG TABLET PO (21:32)
[2021-12-30 07:30] VITALS: BP 187/81; PULSE 71; RESP 16; TEMP 36.8; O2SAT 96
--- NOTE | 2021-12-30 14:00 | HO.PSYCHPN ---
Subjective Subjective Date of Service: 12/30/21 Reason For Visit: Mood Subjective Notes: Section 7 and Section 8 Interim History: The nursing staff reported the patient refused her Zyprexa last night. She took only her trazodone. On interview, the patient was very angry she seems she has just lost on cord and she is now Force to stay here and take medications. She remains chronically delusional. I advised her to take her Zyprexa at night, she was instructed that there is a court order and she has to be compliant. Mental Status Exam Mental Status Exam Patient Appearance: Well Grooomed Patient Orientation: Person and Situation Level of Consciousness: Awake Patient Behavior: Guarded and Passive Mood Description: Withdrawn Affect Description: Constricted Patient Cognition Impaired: Yes Ability to Follow Directions: Poor Speech Pattern: Appropriate Hallucinations: None Delusions: Paranoid Ideation Thought Process: Distracted Thought Content: positive for Obsessional Thoughts and positive for [place] of Content Judgement: Poor Diagnostics Vital Signs (24Hr): Vital Signs - 24 hr 12/29/21 18:00 12/30/21 07:30 Temperature 98.0 F 98.3 F Pulse Rate 82 71 Respiratory Rate 18 16 Blood Pressure 159/67 H 187/81 H Pulse Oximetry 94 96 Oxygen Delivery Method Room Air Room Air BMI result Body Mass Index 21.9 Labs Results: 12/15/21 20:40 12/17/21 07:58 Medications Medications Current Medications Acetaminophen (Acetaminophen 325 Mg Tablet) 650 mg PO Q6H PRN PRN Reason: Headache/Pain Mild Scale (1-3) Al Hydroxide/Mg Hydroxide (Magnesium Hydrox/Alum Hydrox 30 Ml Oral.Susp) 30 ml PO Q6H PRN PRN Reason: Heartburn/Nausea Hydroxyzine HCl (Hydroxyzine Hcl 25 Mg Tablet) 25 mg PO Q6H PRN PRN Reason: Anxiety Ketoconazole (Ketoconazole 2 % Shampoo 120 Ml Btl) 1 appl TOPICAL MoTh TIMOTEO; Protocol Last Admin: 12/29/21 17:02 Dose: Not Given Magnesium Hydroxide (Milk Of Magnesia 30 Ml Oral.Susp) 30 ml PO DAILY PRN PRN Reason: Constipation Olanzapine (Olanzapine 5 Mg Tablet) 5 mg PO BEDTIME TIMOTEO Last Admin: 12/30/21 01:42 Dose: Not Given Pharmacy Consult (Consult Rx Perform Med Rec) 1 each MISCELLANE ONCE PRN PRN Reason: Consult order Trazodone HCl (Trazodone Hcl 50 Mg Tablet) 50 mg PO BEDTIME PRN PRN Reason: Insomnia Last Admin: 12/29/21 21:32 Dose: 50 mg Allergies Allergies Allergy/AdvReac Type Severity Reaction Status Date / Time codeine Allergy Unknown Unknown Verified 12/15/21 18:29 sulfadiazine Allergy Unknown Unknown Verified 12/15/21 18:29 Assessment & Plan Assessment & Plan (1) Dementia: Status: Acute Code(s): F03.90 - Unspecified dementia, unspecified severity, without behavioral disturbance, psychotic disturbance, mood disturbance, and anxiety Plan the patient is an elderly female with very poor ADL less grossly disorganized was referred to the emergency room by the psychotherapist social worker since she was paranoid, poorly kept and unable to take care of herself, her 6 days ago and she was unable to take care of herself. The patient apparently has been grossly disorganized and paranoid for years. Plan 1. Gather collateral information. 2. Continue with same medications. 3. Medical clearance for treatment of UTI. 4. Filing for sections 7 and 8 5. We needed to call a code and chemically restrain her since she was agitated and she was resistant to care. 6. Continue with antipsychotics. 7. Zyprexa back up IM if she refuses I spent ___20___ minutes with the patient and/or on the patient floor today, greater than?50% of which was spent counseling/coordinating care. Reason for contiued inpatient stay Substantial Risk for: inability to function, rapid decompensation and med/psych decompensation
[2021-12-30 18:00] VITALS: BP 168/72; PULSE 78; RESP 16; TEMP 37.3; O2SAT 92
[2021-12-30] MEDS: traZODone HCL 50 MG TABLET PO (20:33)
[2021-12-31 08:45] VITALS: BP 170/72; PULSE 67; RESP 16; TEMP 36.6; O2SAT 94
--- NOTE | 2021-12-31 12:32 | HO.PSYCHPN ---
Subjective Subjective Date of Service: 12/31/21 Reason For Visit: Mood Interim History: pt found seated in milieu apparently sleeping i nher chair. not rousable to loud voice, MD touches her arm and she jerks it away, grunting, doesn't open her eyes. still not rousable to loud voice after this behavior was elicited. per staff, psychotic, on section 8. daniela's order obtained but staff pharmacist hospital last night not aware and did not give IM zyprexa after pt refused dose. Mental Status Exam Mental Status Exam Patient Appearance: Well Grooomed Level of Consciousness: Drowsy Patient Behavior: Guarded and Passive Mood Description: Withdrawn Affect Description: Constricted Patient Cognition Impaired: Yes Speech Pattern: No Speech Judgement: Poor Diagnostics Vital Signs (24Hr): Vital Signs - 24 hr 12/30/21 18:00 12/31/21 08:45 Temperature 99.2 F 97.8 F Pulse Rate 78 67 Respiratory Rate 16 16 Blood Pressure 168/72 H 170/72 H Pulse Oximetry 92 94 Oxygen Delivery Method Room Air Room Air BMI result Body Mass Index 21.9 Labs Results: 12/15/21 20:40 12/17/21 07:58 Medications Medications Current Medications Acetaminophen (Acetaminophen 325 Mg Tablet) 650 mg PO Q6H PRN PRN Reason: Headache/Pain Mild Scale (1-3) Al Hydroxide/Mg Hydroxide (Magnesium Hydrox/Alum Hydrox 30 Ml Oral.Susp) 30 ml PO Q6H PRN PRN Reason: Heartburn/Nausea Hydroxyzine HCl (Hydroxyzine Hcl 25 Mg Tablet) 25 mg PO Q6H PRN PRN Reason: Anxiety Ketoconazole (Ketoconazole 2 % Shampoo 120 Ml Btl) 1 appl TOPICAL MoTh TIMOTEO; Protocol Last Admin: 12/29/21 17:02 Dose: Not Given Magnesium Hydroxide (Milk Of Magnesia 30 Ml Oral.Susp) 30 ml PO DAILY PRN PRN Reason: Constipation Olanzapine (Olanzapine 5 Mg Tablet) 5 mg PO BEDTIME TIMOTEO Last Admin: 12/30/21 22:03 Dose: Not Given Olanzapine (Olanzapine 10 Mg Vial) 5 mg IM BEDTIME PRN PRN Reason: Psychosis Trazodone HCl (Trazodone Hcl 50 Mg Tablet) 50 mg PO BEDTIME PRN PRN Reason: Insomnia Last Admin: 12/30/21 20:33 Dose: 50 mg Allergies Allergies Allergy/AdvReac Type Severity Reaction Status Date / Time codeine Allergy Unknown Unknown Verified 12/15/21 18:29 sulfadiazine Allergy Unknown Unknown Verified 12/15/21 18:29 Assessment & Plan Assessment & Plan (1) Dementia: Status: Acute Code(s): F03.90 - Unspecified dementia, unspecified severity, without behavioral disturbance, psychotic disturbance, mood disturbance, and anxiety Plan the patient is an elderly female with very poor ADL less grossly disorganized was referred to the emergency room by the delinquency prevention social worker since she was paranoid, poorly kept and unable to take care of herself, her 6 days ago and she was unable to take care of herself. The patient apparently has been grossly disorganized and paranoid for years. Plan 1. Gather collateral information. 2. Continue with same medications. 3. Medical clearance for treatment of UTI. 4. Filing for sections 7 and 8 5. We needed to call a code and chemically restrain her since she was agitated and she was resistant to care. 6. Continue with antipsychotics. 7. Zyprexa back up IM if she refuses 12/31: offer zyprexa this morning with IM back up if refuses. otherwise continue current mgmt. I spent ___15___ minutes with the patient and/or on the patient floor today, greater than?50% of which was spent counseling/coordinating care. Reason for contiued inpatient stay Substantial Risk for: inability to function and rapid decompensation
[2021-12-31 20:00] VITALS: BP 192/85; PULSE 81; RESP 16; TEMP 37.3; O2SAT 95
[2021-12-31] MEDS: traZODone HCL 50 MG TABLET PO (20:07)
--- NOTE | 2022-01-01 11:57 | P.PNPSI_ITS ---
Subjective Subjective Date of Service: 01/01/22 Reason For Visit: Mood Interim History: asleep in bed, rousable to loud voice. on being asked is there is anything i can do for her today, she states put more blankets on her as she is cold. does the task to her satisfaction and she falls back asleep. per staffm irritable this morning. refusing zyprexa. slept well. eating well. Mental Status Exam Mental Status Exam Patient Appearance: Well Grooomed Level of Consciousness: Drowsy Patient Behavior: Guarded and Passive Mood Description: Withdrawn Affect Description: Constricted Patient Cognition Impaired: Yes Speech Pattern: Impoverished Judgement: Poor Diagnostics Vital Signs (24Hr): Vital Signs - 24 hr 12/31/21 20:00 Temperature 99.2 F Pulse Rate 81 Respiratory Rate 16 Blood Pressure 192/85 H Pulse Oximetry 95 Oxygen Delivery Method Room Air BMI result Body Mass Index 21.9 Labs Results: 12/15/21 20:40 12/17/21 07:58 Medications Medications Current Medications Acetaminophen (Acetaminophen 325 Mg Tablet) 650 mg PO Q6H PRN PRN Reason: Headache/Pain Mild Scale (1-3) Al Hydroxide/Mg Hydroxide (Magnesium Hydrox/Alum Hydrox 30 Ml Oral.Susp) 30 ml PO Q6H PRN PRN Reason: Heartburn/Nausea Hydroxyzine HCl (Hydroxyzine Hcl 25 Mg Tablet) 25 mg PO Q6H PRN PRN Reason: Anxiety Ketoconazole (Ketoconazole 2 % Shampoo 120 Ml Btl) 1 appl TOPICAL MoTh TIMOTEO; Protocol Last Admin: 12/29/21 17:02 Dose: Not Given Magnesium Hydroxide (Milk Of Magnesia 30 Ml Oral.Susp) 30 ml PO DAILY PRN PRN Reason: Constipation Olanzapine (Olanzapine 5 Mg Tablet) 5 mg PO BEDTIME TIMOTEO Last Admin: 12/31/21 20:09 Dose: Not Given Trazodone HCl (Trazodone Hcl 50 Mg Tablet) 50 mg PO BEDTIME PRN PRN Reason: Insomnia Last Admin: 12/31/21 20:07 Dose: 50 mg Allergies Allergies Allergy/AdvReac Type Severity Reaction Status Date / Time codeine Allergy Unknown Unknown Verified 12/15/21 18:29 sulfadiazine Allergy Unknown Unknown Verified 12/15/21 18:29 Assessment & Plan Assessment & Plan (1) Dementia: Status: Acute Code(s): F03.90 - Unspecified dementia, unspecified severity, without behavioral disturbance, psychotic disturbance, mood disturbance, and anxiety Plan the patient is an elderly female with very poor ADL less grossly diso rganized was referred to the emergency room by the social services analyst since she was paranoid, poorly kept and unable to take care of herself, her 6 days ago and she was unable to take care of herself. The patient apparently has been grossly disorganized and paranoid for years. Plan 1. Gather collateral information. 2. Continue with same medications. 3. Medical clearance for treatment of UTI. 4. Filing for sections 7 and 8 5. We needed to call a code and chemically restrain her since she was agitated and she was resistant to care. 6. Continue with antipsychotics. 7. Zyprexa back up IM if she refuses 12/31: offer zyprexa this morning with IM back up if refuses. otherwise continue current mgmt. 01/01: refusing meds. order from yesterday changed to NOT give IM back-up, as there is not yet a daniela's order. continue current mgmt otherwise. I spent __10____ minutes with the patient and/or on the patient floor today, greater than?50% of which was spent counseling/coordinating care. Reason for contiued inpatient stay Substantial Risk for: inability to function and rapid decompensation
[2022-01-01 18:00] VITALS: BP 152/80; PULSE 76; RESP 16; TEMP 36.8; O2SAT 96
[2022-01-02 07:35] VITALS: BP 181/88; PULSE 78; RESP 16; TEMP 36.9; O2SAT 95
[2022-01-02 19:00] VITALS: BP 178/83; PULSE 72; RESP 18; TEMP 37.1; O2SAT 92
[2022-01-02] MEDS: OLANZapine 5 MG TABLET PO (21:03)
[2022-01-02] MEDS: traZODone HCL 50 MG TABLET PO (21:08)
[2022-01-03 06:00] VITALS: BP 145/70; PULSE 71; RESP 16; TEMP 36.7; O2SAT 95
--- NOTE | 2022-01-03 13:50 | HO.PSYCHPN ---
Subjective Subjective Date of Service: 01/03/22 Reason For Visit: Mood Subjective Notes: Section 7 and Section 8 Interim History: The nursing staff reported the patient refused her medications at night and she was going to receive an IM if she does not agree to take p.o.. She took p.o. Zyprexa. So far, the patient does not have recollection of conversations that we previously have in the last days, she wrote the 3rd letter and a told her that this is the 3rd later and she cannot remember that she wrote to another wants. The patient is very confused and loud at times. We discussed with the team that we will wait for the court hearing so they can get into her house and documented the state of her place. Mental Status Exam Mental Status Exam Patient Appearance: Well Grooomed Patient Orientation: Person and Situation Level of Consciousness: Awake Patient Behavior: Guarded Mood Description: Constricted Affect Description: Labile Patient Cognition Impaired: Yes Ability to Follow Directions: Good Speech Pattern: Clear Hallucinations: None Delusions: Paranoid Ideation Thought Process: Distracted Thought Content: positive for [place] and positive for Evasive Judgement: Poor Diagnostics Vital Signs (24Hr): Vital Signs - 24 hr 01/02/22 19:00 01/03/22 06:00 Temperature 98.7 F 98.1 F Pulse Rate 72 71 Respiratory Rate 18 16 Blood Pressure 178/83 H 145/70 H Pulse Oximetry 92 95 Oxygen Delivery Method Room Air Room Air BMI result Body Mass Index 21.9 Labs Results: 12/15/21 20:40 12/17/21 07:58 Medications Medications Current Medications Acetaminophen (Acetaminophen 325 Mg Tablet) 650 mg PO Q6H PRN PRN Reason: Headache/Pain Mild Scale (1-3) Al Hydroxide/Mg Hydroxide (Magnesium Hydrox/Alum Hydrox 30 Ml Oral.Susp) 30 ml PO Q6H PRN PRN Reason: Heartburn/Nausea Hydroxyzine HCl (Hydroxyzine Hcl 25 Mg Tablet) 25 mg PO Q6H PRN PRN Reason: Anxiety Ketoconazole (Ketoconazole 2 % Shampoo 120 Ml Btl) 1 appl TOPICAL MoTh TIMOTEO; Protocol Last Admin: 01/02/22 16:34 Dose: Not Given Magnesium Hydroxide (Milk Of Magnesia 30 Ml Oral.Susp) 30 ml PO DAILY PRN PRN Reason: Constipation Olanzapine (Olanzapine 5 Mg Tablet) 5 mg PO BEDTIME TIMOTEO Last Admin: 01/02/22 21:03 Dose: 5 mg Olanzapine (Olanzapine 10 Mg Vial) 5 mg IM BEDTIME PRN PRN Reason: refusal of PO Trazodone HCl (Trazodone Hcl 50 Mg Tablet) 50 mg PO BEDTIME PRN PRN Reason: Insomnia Last Admin: 01/02/22 21:08 Dose: 50 mg Allergies Allergies Allergy/AdvReac Type Severity Reaction Status Date / Time codeine Allergy Unknown Unknown Verified 12/15/21 18:29 sulfadiazine Allergy Unknown Unknown Verified 12/15/21 18:29 Assessment & Plan Assessment & Plan (1) Dementia: Status: Acute Code(s): F03.90 - Unspecified dementia, unspecified severity, without behavioral disturbance, psychotic disturbance, mood disturbance, and anxiety Plan the patient is an elderly female with very poor ADL less grossly disorganized was referred to the emergency room by the delinquency prevention social worker since she was paranoid, poorly kept and unable to take care of herself, her 6 days ago and she was unable to take care of herself. The patient apparently has been grossly disorganized and paranoid for years. Plan 1. Gather collateral information. 2. Continue with same medications. 3. Medical clearance for treatment of UTI. 4. Filing for sections 7 and 8 5. We needed to call a code and chemically restrain her since she was agitated and she was resistant to care. 6. Continue with antipsychotics. 7. Zyprexa back up IM if she refuses I spent ___20___ minutes with the patient and/or on the patient floor today, greater than?50% of which was spent counseling/coordinating care. Informed Consent: does not understand Reason for contiued inpatient stay Substantial Risk for: inability to function, rapid decompensation and med/psych decompensation
[2022-01-03 18:00] VITALS: BP 188/92; PULSE 70; RESP 16; TEMP 37.1; O2SAT 98
[2022-01-03] MEDS: traZODone HCL 50 MG TABLET PO (20:02)
[2022-01-03] MEDS: OLANZapine 5 MG TABLET PO (20:04)
[2022-01-03 22:25] VITALS: BP 144/68
[2022-01-04 06:00] VITALS: PULSE 77; TEMP 37.2
[2022-01-04 11:14] VITALS: BP 148/70; PULSE 73; TEMP 37.2; O2SAT 96
--- NOTE | 2022-01-04 14:57 | P.PNPSI_ITS ---
Subjective Subjective Date of Service: 01/04/22 Reason For Visit: Mood Subjective Notes: Section 7 and Section 8 Interim History: the nursing staff reported the patient has tried to refuse her medication at night but she was remembered that she is on a Section 7 and 8 and she will have an a.m. if she is not compliant. On interview the patient remains perseverative with poor short-term memory, she cannot remember the we discussed early in the morning and she was requesting to get her mail. Poor insight into her condition Mental Status Exam Mental Status Exam Patient Appearance: Well Grooomed Patient Orientation: Person and Situation Level of Consciousness: Appropriate Patient Behavior: Passive Mood Description: Withdrawn Affect Description: Labile Patient Cognition Impaired: Yes Ability to Follow Directions: Good Speech Pattern: Clear Hallucinations: None Delusions: Paranoid Ideation Thought Content: positive for [place] Judgement: Poor Diagnostics Vital Signs (24Hr): Vital Signs - 24 hr 01/03/22 18:00 01/03/22 22:25 01/04/22 06:00 Temperature 98.8 F 98.9 F Pulse Rate 70 77 Respiratory Rate 16 Blood Pressure 188/92 H 144/68 H Pulse Oximetry 98 Oxygen Delivery Method Room Air 01/04/22 11:14 Temperature 98.9 F Pulse Rate 73 Respiratory Rate Blood Pressure 148/70 H Pulse Oximetry 96 Oxygen Delivery Method BMI result Body Mass Index 21.9 Labs Results: 12/15/21 20:40 12/17/21 07:58 Medications Medications Current Medications Acetaminophen (Acetaminophen 325 Mg Tablet) 650 mg PO Q6H PRN PRN Reason: Headache/Pain Mild Scale (1-3) Al Hydroxide/Mg Hydroxide (Magnesium Hydrox/Alum Hydrox 30 Ml Oral.Susp) 30 ml PO Q6H PRN PRN Reason: Heartburn/Nausea Hydroxyzine HCl (Hydroxyzine Hcl 25 Mg Tablet) 25 mg PO Q6H PRN PRN Reason: Anxiety Ketoconazole (Ketoconazole 2 % Shampoo 120 Ml Btl) 1 appl TOPICAL MoTh TIMOTEO; Protocol Last Admin: 01/02/22 16:34 Dose: Not Given Magnesium Hydroxide (Milk Of Magnesia 30 Ml Oral.Susp) 30 ml PO DAILY PRN PRN Reason: Constipation Olanzapine (Olanzapine 5 Mg Tablet) 5 mg PO BEDTIME TIMOTEO Last Admin: 01/03/22 20:04 Dose: 5 mg Olanzapine (Olanzapine 10 Mg Vial) 5 mg IM BEDTIME PRN PRN Reason: refusal of PO Trazodone HCl (Trazodone Hcl 50 Mg Tablet) 50 mg PO BEDTIME PRN PRN Reason: Insomnia Last Admin: 01/03/22 20:02 Dose: 50 mg Allergies Allergies Allergy/AdvReac Type Severity Reaction Status Date / Time codeine Allergy Unknown Unknown Verified 12/15/21 18:29 sulfadiazine Allergy Unknown Unknown Verified 12/15/21 18:29 Assessment & Plan Assessment & Plan (1) Dementia: Status: Acute Code(s): F03.90 - Unspecified dementia, unspecified severity, without behavioral disturbance, psychotic disturbance, mood disturbance, and anxiety Plan the patient is an elderly female with very poor ADL less grossly disorganized was referred to the emergency room by the social media community manager since she was paranoid, poorly kept and unable to take care of herself, her 6 days ago and she was unable to take care of herself. The patient apparently has been grossly disorganized and paranoid for years. Plan 1. Gather collateral information. 2. Continue with same medications. 3. Medical clearance for treatment of UTI. 4. Filing for sections 7 and 8 5. We needed to call a code and chemically restrain her since she was agitated and she was resistant to care. 6. Continue with antipsychotics. 7. Zyprexa back up IM if she refuses I spent __20____ minutes with the patient and/or on the patient floor today, greater than?50% of which was spent counseling/coordinating care. Reason for contiued inpatient stay Substantial Risk for: inability to function, rapid decompensation and med/psych decompensation
[2022-01-04 18:00] VITALS: BP 181/81; PULSE 72; RESP 16; TEMP 37; O2SAT 96
[2022-01-04] MEDS: traZODone HCL 50 MG TABLET PO (22:19)
[2022-01-04] MEDS: OLANZapine 5 MG TABLET PO (22:19)
[2022-01-04 22:24] VITALS: BP 150/80
[2022-01-05 07:00] VITALS: BMI 25.9
--- NOTE | 2022-01-05 11:35 | HO.PSYCHPN ---
Subjective Subjective Date of Service: 01/05/22 Reason For Visit: Mood Subjective Notes: Section 7 and Section 8 Interim History: the nursing staff reported the patient having level at times, she had been crying and irritated interacting with peers but at little more appropriate. Yesterday that she was over the phone regarding her pills and her bank accounts. The high school social studies teacher called her neighbor and apparently the patient had not been paying bills for quite long time. She had court yesterday we find out if they could cut into the house and get more information. On interview the patient has very poor memory and she cannot understand why she is here again I explained her that she has and Section 7 and 8. Mental Status Exam Mental Status Exam Patient Appearance: Unkempt Patient Orientation: Person and Situation Level of Consciousness: Appropriate Mood Description: Suspicious and Withdrawn Affect Description: Labile Patient Cognition Impaired: Yes Ability to Follow Directions: Good Speech Pattern: Clear Hallucinations: None Delusions: Paranoid Ideation Thought Process: Distracted Thought Content: positive for [place] and positive for Incoherent Judgement: Poor Diagnostics Vital Signs (24Hr): Vital Signs - 24 hr 01/04/22 22:24 01/04/22 18:00 Temperature 98.6 F Pulse Rate 72 Respiratory Rate 16 Blood Pressure 150/80 H 181/81 H Pulse Oximetry 96 Oxygen Delivery Method Room Air BMI result Body Mass Index 21.9 Labs Results: 12/15/21 20:40 12/17/21 07:58 Medications Medications Current Medications Acetaminophen (Acetaminophen 325 Mg Tablet) 650 mg PO Q6H PRN PRN Reason: Headache/Pain Mild Scale (1-3) Al Hydroxide/Mg Hydroxide (Magnesium Hydrox/Alum Hydrox 30 Ml Oral.Susp) 30 ml PO Q6H PRN PRN Reason: Heartburn/Nausea Hydroxyzine HCl (Hydroxyzine Hcl 25 Mg Tablet) 25 mg PO Q6H PRN PRN Reason: Anxiety Ketoconazole (Ketoconazole 2 % Shampoo 120 Ml Btl) 1 appl TOPICAL MoTh TIMOTEO; Protocol Last Admin: 01/02/22 16:34 Dose: Not Given Magnesium Hydroxide (Milk Of Magnesia 30 Ml Oral.Susp) 30 ml PO DAILY PRN PRN Reason: Constipation Olanzapine (Olanzapine 5 Mg Tablet) 5 mg PO BEDTIME TIMOTEO Last Admin: 01/04/22 22:19 Dose: 5 mg Olanzapine (Olanzapine 10 Mg Vial) 5 mg IM BEDTIME PRN PRN Reason: refusal of PO Trazodone HCl (Trazodone Hcl 50 Mg Tablet) 50 mg PO BEDTIME PRN PRN Reason: Insomnia Last Admin: 01/04/22 22:19 Dose: 50 mg Allergies Allergies Allergy/AdvReac Type Severity Reaction Status Date / Time codeine Allergy Unknown Unknown Verified 12/15/21 18:29 sulfadiazine Allergy Unknown Unknown Verified 12/15/21 18:29 Assessment & Plan Assessment & Plan (1) Dementia: Status: Acute Code(s): F03.90 - Unspecified dementia, unspecified severity, without behavioral disturbance, psychotic disturbance, mood disturbance, and anxiety Plan the patient is an elderly female with very poor ADL less grossly disorganized was referred to the emergency room by the social studies department chair since she was paranoid, poorly kept and unable to take care of herself, her 6 days ago and she was unable to take care of herself. The patient apparently has been grossly disorganized and paranoid for years. Plan 1. Gather collateral information. 2. Continue with same medications. 3. Medical clearance for treatment of UTI. 4. Filing for sections 7 and 8 5. We needed to call a code and chemically restrain her since she was agitated and she was resistant to care. 6. Continue with antipsychotics. 7. Zyprexa back up IM if she refuses I spent ___20___ minutes with the patient and/or on the patient floor today, greater than?50% of which was spent counseling/coordinating care. Reason for contiued inpatient stay Substantial Risk for: inability to function, rapid decompensation and med/psych decompensation
--- NOTE | 2022-01-05 17:47 | PC.NURSE ---
Pt strongly encouraged to change her clothing and brief as she was soaked through with urine and leaving urine all over the seats/furniture. The pt continued to refused throughout the day. Explained to pt the importance of good hygiene care to prevent skin breakdown, encouraged the pt to shower. Explained to the pt that she had a strong urine odor and it was important to clean up and change her clothing. Explained to the pt around 1400 that is is critical that the pt perform hygiene care for herself or the MD would write an order for staff to provide hygiene care for the pt. Pt continued to refuse. Security was called and the pt brief and clothing were changed. Restraint paperwork was completed.
[2022-01-05 18:00] VITALS: BP 157/75; PULSE 77; RESP 18; TEMP 37.1; O2SAT 96
[2022-01-05] MEDS: OLANZapine 10 MG VIAL 5 MG IM (22:32)
--- NOTE | 2022-01-06 02:12 | PC.NURSE ---
Pt visibly and emotionally upset, verbalizing, I'm so sick of this place. I do not need to be here! I do not need to be forced to take my medicine! Show me the Farooq's order! I am not taking this! Get the fuck out bitch! De-escalation, therapeutic listening, education provided with great effort. After almost 2 hrs of education, pt still refused Zyprexa PO. Education provided on Farooq's Order and shown to patient. I am not taking this pill! Pt received IM Zyprexa as ordered per Farooq's Order.
[2022-01-06 06:00] VITALS: BP 166/70; PULSE 75; RESP 16; TEMP 36.9; O2SAT 96
--- NOTE | 2022-01-06 16:26 | HO.PSYCHPN ---
Subjective Subjective Date of Service: 01/06/22 Reason For Visit: Mood Subjective Notes: Conditional Voluntary Interim History: the nursing staff reported the patient refused her Zyprexa at night and she became agitated so we needed to give her her Zyprexa IM backup. On interview the patient is very angry, with poor short-term memory, she could not remember the we spoke in the morning. In the evening she was less hostile and pleasant at times, crying for her . Mental Status Exam Mental Status Exam Patient Appearance: Appropriate Patient Orientation: Person Level of Consciousness: Awake Patient Behavior: Guarded and Suspicious Mood Description: Withdrawn Affect Description: Constricted Patient Cognition Impaired: Yes Ability to Follow Directions: Good Speech Pattern: Clear Hallucinations: None Delusions: Paranoid Ideation Thought Process: Distracted Thought Content: positive for [place] and positive for Obsessional Thoughts Judgement: Fair Diagnostics Vital Signs (24Hr): Vital Signs - 24 hr 01/05/22 18:00 01/06/22 06:00 Temperature 98.8 F 98.5 F Pulse Rate 77 75 Respiratory Rate 18 16 Blood Pressure 157/75 H 166/70 H Pulse Oximetry 96 96 Oxygen Delivery Method Room Air BMI result Body Mass Index 25.9 Labs Results: 12/15/21 20:40 12/17/21 07:58 Medications Medications Current Medications Acetaminophen (Acetaminophen 325 Mg Tablet) 650 mg PO Q6H PRN PRN Reason: Headache/Pain Mild Scale (1-3) Al Hydroxide/Mg Hydroxide (Magnesium Hydrox/Alum Hydrox 30 Ml Oral.Susp) 30 ml PO Q6H PRN PRN Reason: Heartburn/Nausea Donepezil HCl (Donepezil Hcl 5 Mg Tablet) 5 mg PO BEDTIME TIMOTEO Hydroxyzine HCl (Hydroxyzine Hcl 25 Mg Tablet) 25 mg PO Q6H PRN PRN Reason: Anxiety Ketoconazole (Ketoconazole 2 % Shampoo 120 Ml Btl) 1 appl TOPICAL MoTh TIMOTEO; Protocol Last Admin: 01/05/22 15:59 Dose: Not Given Magnesium Hydroxide (Milk Of Magnesia 30 Ml Oral.Susp) 30 ml PO DAILY PRN PRN Reason: Constipation Olanzapine (Olanzapine 5 Mg Tablet) 5 mg PO BEDTIME TIMOTEO Last Admin: 01/05/22 22:19 Dose: Not Given Olanzapine (Olanzapine 10 Mg Vial) 5 mg IM BEDTIME PRN PRN Reason: refusal of PO Last Admin: 01/05/22 22:32 Dose: 5 mg Trazodone HCl (Trazodone Hcl 50 Mg Tablet) 50 mg PO BEDTIME PRN PRN Reason: Insomnia Last Admin: 01/04/22 22:19 Dose: 50 mg Allergies Allergies Allergy/AdvReac Type Severity Reaction Status Date / Time codeine Allergy Unknown Unknown Verified 12/15/21 18:29 sulfadiazine Allergy Unknown Unknown Verified 12/15/21 18:29 Assessment & Plan Assessment & Plan (1) Dementia: Status: Acute Code(s): F03.90 - Unspecified dementia, unspecified severity, without behavioral disturbance, psychotic disturbance, mood disturbance, and anxiety Plan the patient is an elderly female with very poor ADL less grossly disorganized was referred to the emergency room by the drug abuse social worker since she was paranoid, poorly kept and unable to take care of herself, her 6 days ago and she was unable to take care of herself. The patient apparently has been grossly disorganized and paranoid for years. Plan 1. Gather collateral information. 2. Continue with same medications. 3. Medical clearance for treatment of UTI. 4. Filing for sections 7 and 8 5. We needed to call a code and chemically restrain her since she was agitated and she was resistant to care. 6. Continue with antipsychotics. 7. Zyprexa back up IM if she refuses I spent __20____ minutes with the patient and/or on the patient floor today, greater than?50% of which was spent counseling/coordinating care. Reason for contiued inpatient stay Substantial Risk for: inability to function, rapid decompensation and med/psych decompensation
[2022-01-06 18:00] VITALS: BP 162/79; PULSE 68; RESP 18; TEMP 36.6; O2SAT 98
[2022-01-06] MEDS: OLANZapine 5 MG TABLET PO (21:11)
--- NOTE | 2022-01-07 10:57 | P.PNPSI_ITS ---
Subjective Subjective Date of Service: 01/07/22 Reason For Visit: Mood Subjective Notes: Section 8 Interim History: Patient was seen and discussed in rounds today. Records and plans were reviewed. She continues to be compliant with medications, intermittently. No episodes of anger outburst. Confused at times. Eating and sleeping adequately. No changes were made today. No complaints. Review of Systems Review of Systems Yes Unobtainable due to mental status Mental Status Exam Mental Status Exam Patient Appearance: Appropriate Patient Orientation: Person Level of Consciousness: Awake Patient Behavior: Guarded and Suspicious Mood Description: Withdrawn Affect Description: Constricted Patient Cognition Impaired: Yes Ability to Follow Directions: Good Speech Pattern: Clear Hallucinations: None Delusions: Paranoid Ideation Thought Process: Distracted Thought Content: positive for [place] and positive for Obsessional Thoughts Judgement: Fair Diagnostics Vital Signs (24Hr): Vital Signs - 24 hr 01/06/22 18:00 Temperature 97.9 F Pulse Rate 68 Respiratory Rate 18 Blood Pressure 162/79 H Pulse Oximetry 98 Oxygen Delivery Method Room Air BMI result Body Mass Index 25.9 Labs Results: 12/15/21 20:40 12/17/21 07:58 Medications Medications Current Medications Acetaminophen (Acetaminophen 325 Mg Tablet) 650 mg PO Q6H PRN PRN Reason: Headache/Pain Mild Scale (1-3) Al Hydroxide/Mg Hydroxide (Magnesium Hydrox/Alum Hydrox 30 Ml Oral.Susp) 30 ml PO Q6H PRN PRN Reason: Heartburn/Nausea Donepezil HCl (Donepezil Hcl 5 Mg Tablet) 5 mg PO BEDTIME TIMOTEO Last Admin: 01/06/22 21:24 Dose: Not Given Hydroxyzine HCl (Hydroxyzine Hcl 25 Mg Tablet) 25 mg PO Q6H PRN PRN Reason: Anxiety Ketoconazole (Ketoconazole 2 % Shampoo 120 Ml Btl) 1 appl TOPICAL MoTh TIMOTEO; Protocol Last Admin: 01/05/22 15:59 Dose: Not Given Magnesium Hydroxide (Milk Of Magnesia 30 Ml Oral.Susp) 30 ml PO DAILY PRN PRN Reason: Constipation Olanzapine (Olanzapine 5 Mg Tablet) 5 mg PO BEDTIME TIMOTEO Last Admin: 01/06/22 21:11 Dose: 5 mg Olanzapine (Olanzapine 10 Mg Vial) 5 mg IM BEDTIME PRN PRN Reason: refusal of PO Last Admin: 01/05/22 22:32 Dose: 5 mg Trazodone HCl (Trazodone Hcl 50 Mg Tablet) 50 mg PO BEDTIME PRN PRN Reason: Insomnia Last Admin: 01/04/22 22:19 Dose: 50 mg Allergies Allergies Allergy/AdvReac Type Severity Reaction Status Date / Time codeine Allergy Unknown Unknown Verified 12/15/21 18:29 sulfadiazine Allergy Unknown Unknown Verified 12/15/21 18:29 Assessment & Plan Assessment & Plan (1) Dementia: Status: Acute Code(s): F03.90 - Unspecified dementia, unspecified severity, without behavioral disturbance, psychotic disturbance, mood disturbance, and anxiety Plan the patient is an elderly female with very poor ADL less grossly disorganized was referred to the emergency room by the social worker health services since she was paranoid, poorly kept and unable to take care of herself, her 6 days ago and she was unable to take care of herself. The patient apparently has been grossly disorganized and paranoid for years. Plan 1. Gather collateral information. 2. Continue with same medications. 3. Medical clearance for treatment of UTI. 4. Filing for sections 7 and 8 5. We needed to call a code and chemically restrain her since she was agitated and she was resistant to care. 6. Continue with antipsychotics. 7. Zyprexa back up IM if she refuses 01/07: Continue current regimen and plans I spent minutes with the patient and/or on the patient floor today, greater than?50% of which was spent counseling/coordinating care. Reason for contiued inpatient stay Substantial Risk for: inability to function
[2022-01-07 18:00] VITALS: BP 157/79; PULSE 71; RESP 18; TEMP 36.3; O2SAT 95
[2022-01-07] MEDS: OLANZapine 5 MG TABLET PO (20:55)
--- NOTE | 2022-01-08 08:09 | P.PNPSI_ITS ---
Subjective Subjective Date of Service: 01/08/22 Reason For Visit: Mood Subjective Notes: Section 8 Interim History: Patient was seen and discussed in rounds today. Records and plans were reviewed. She has been relatively stable but with feelings of anger. She co ntinues to be started up around her 's . Refuses care at times. Refused her Aricept last night. Slept about 5 hours. Eating adequately. No complaints or side effects. No changes were made today Medication Compliance: Intermittent Side effects from medications: No Review of Systems Review of Systems Yes Unobtainable due to mental status Mental Status Exam Mental Status Exam Patient Appearance: Appropriate Patient Orientation: Person Level of Consciousness: Awake Patient Behavior: Guarded and Suspicious Mood Description: Withdrawn Affect Description: Constricted Patient Cognition Impaired: Yes Ability to Follow Directions: Good Speech Pattern: Clear Hallucinations: None Delusions: Paranoid Ideation Thought Process: Distracted Thought Content: positive for [place] and positive for Obsessional Thoughts Judgement: Fair Diagnostics Vital Signs (24Hr): Vital Signs - 24 hr 01/07/22 18:00 Temperature 97.4 F Pulse Rate 71 Respiratory Rate 18 Blood Pressure 157/79 H Pulse Oximetry 95 Oxygen Delivery Method Room Air BMI result Body Mass Index 25.9 Labs Results: 12/15/21 20:40 12/17/21 07:58 Medications Medications Current Medications Acetaminophen (Acetaminophen 325 Mg Tablet) 650 mg PO Q6H PRN PRN Reason: Headache/Pain Mild Scale (1-3) Al Hydroxide/Mg Hydroxide (Magnesium Hydrox/Alum Hydrox 30 Ml Oral.Susp) 30 ml PO Q6H PRN PRN Reason: Heartburn/Nausea Donepezil HCl (Donepezil Hcl 5 Mg Tablet) 5 mg PO BEDTIME TIMOTEO Last Admin: 01/07/22 21:04 Dose: Not Given Hydroxyzine HCl (Hydroxyzine Hcl 25 Mg Tablet) 25 mg PO Q6H PRN PRN Reason: Anxiety Ketoconazole (Ketoconazole 2 % Shampoo 120 Ml Btl) 1 appl TOPICAL MoTh TIMOTEO; Protocol Last Admin: 01/05/22 15:59 Dose: Not Given Magnesium Hydroxide (Milk Of Magnesia 30 Ml Oral.Susp) 30 ml PO DAILY PRN PRN Reason: Constipation Olanzapine (Olanzapine 5 Mg Tablet) 5 mg PO BEDTIME [facility] Last Admin: 01/07/22 20:55 Dose: 5 mg Olanzapine (Olanzapine 10 Mg Vial) 5 mg IM BEDTIME PRN PRN Reason: refusal of PO Last Admin: 01/05/22 22:32 Dose: 5 mg Trazodone HCl (Trazodone Hcl 50 Mg Tablet) 50 mg PO BEDTIME PRN PRN Reason: Insomnia Last Admin: 01/04/22 22:19 Dose: 50 mg Allergies Allergies Allergy/AdvReac Type Severity Reaction Status Date / Time codeine Allergy Unknown Unknown Verified 12/15/21 18:29 sulfadiazine Allergy Unknown Unknown Verified 12/15/21 18:29 Assessment & Plan Assessment & Plan (1) Dementia: Status: Acute Code(s): F03.90 - Unspecified dementia, unspecified severity, without behavioral disturbance, psychotic disturbance, mood disturbance, and anxiety Plan the patient is an elderly female with very poor ADL less grossly disorganized was referred to the emergency room by the social science professor since she was paranoid, poorly kept and unable to take care of herself, her 6 days ago and she was unable to take care of herself. The patient apparently has been grossly disorganized and paranoid for years. Plan 1. Gather collateral information. 2. Continue with same medications. 3. Medical clearance for treatment of UTI. 4. Filing for sections 7 and 8 5. We needed to call a code and chemically restrain her since she was agitated and she was resistant to care. 6. Continue with antipsychotics. 7. Zyprexa back up IM if she refuses 01/07: Continue current regimen and plans 01/08: Continue current regimen and care I spent minutes with the patient and/or on the patient floor today, greater than?50% of which was spent counseling/coordinating care. Reason for contiued inpatient stay Substantial Risk for: inability to function
[2022-01-08 08:45] VITALS: BP 168/76; PULSE 69; RESP 14; TEMP 37; O2SAT 93
[2022-01-08 18:00] VITALS: BP 152/82; PULSE 73; RESP 16; TEMP 37.6; O2SAT 94
[2022-01-08] MEDS: traZODone HCL 50 MG TABLET PO (21:30)
[2022-01-08] MEDS: OLANZapine 10 MG VIAL 5 MG IM (21:32)
--- NOTE | 2022-01-08 23:04 | PC.NURSE ---
pt is focused on writing a letter to dr herndon. she states she has to be discharged from here so she may straighten out the possible foreclosure of her home and property. she repetitively speaks about the [facility] being an claims attorney who is plotting with the [facility] claims attorney to cease her property and build condominiums. she refuses the following medications 1. aricept 2. zyprexa po. with great effort of persuasion to take po zyprexa, pt is adamant that she will not take zyprexa. with [place] order in place. Pt. medicated with zyprexa 5 mg im to right deltoid. pt expresses frustration and anger that she has been medicated against her will. of interest pt did readily take trazadone 50 mg po.
[2022-01-09 06:00] VITALS: BP 134/67; PULSE 71; RESP 17; TEMP 36.6; O2SAT 95
--- NOTE | 2022-01-09 14:01 | HO.PSYCHPN ---
Subjective Subjective Date of Service: 01/09/22 Reason For Visit: Mood Subjective Notes: Conditional Voluntary Interim History: the nursing staff reported that the patient refused yesterday her Zyprexa needed to use the Zyprexa IM. On interview she remains angry and confused at times. I explained her that we need to CT scan of the chest to make sure that she does not have any other medical problems. I will schedule did for tomorrow morning Mental Status Exam Mental Status Exam Patient Appearance: Appropriate Patient Orientation: Person and Situation Level of Consciousness: Awake Patient Behavior: Guarded and Passive Mood Description: Suspicious Affect Description: Labile Patient Cognition Impaired: Yes Ability to Follow Directions: Good Speech Pattern: Clear Hallucinations: None Delusions: Paranoid Ideation Thought Process: Distracted Thought Content: positive for Obsessional Thoughts and positive for Loose Associations Judgement: Poor Diagnostics Vital Signs (24Hr): Vital Signs - 24 hr 01/08/22 18:00 01/09/22 06:00 Temperature 99.6 F 97.8 F Pulse Rate 73 71 Respiratory Rate 16 17 Blood Pressure 152/82 H 134/67 Pulse Oximetry 94 95 Oxygen Delivery Method Room Air Room Air BMI result Body Mass Index 25.9 Labs Results: 12/15/21 20:40 12/17/21 07:58 Medications Medications Current Medications Acetaminophen (Acetaminophen 325 Mg Tablet) 650 mg PO Q6H PRN PRN Reason: Headache/Pain Mild Scale (1-3) Al Hydroxide/Mg Hydroxide (Magnesium Hydrox/Alum Hydrox 30 Ml Oral.Susp) 30 ml PO Q6H PRN PRN Reason: Heartburn/Nausea Donepezil HCl (Donepezil Hcl 5 Mg Tablet) 5 mg PO BEDTIME TIMOTEO Last Admin: 01/08/22 21:34 Dose: Not Given Hydroxyzine HCl (Hydroxyzine Hcl 25 Mg Tablet) 25 mg PO Q6H PRN PRN Reason: Anxiety Ketoconazole (Ketoconazole 2 % Shampoo 120 Ml Btl) 1 appl TOPICAL MoTh TIMOTEO; Protocol Last Admin: 01/05/22 15:59 Dose: Not Given Magnesium Hydroxide (Milk Of Magnesia 30 Ml Oral.Susp) 30 ml PO DAILY PRN PRN Reason: Constipation Olanzapine (Olanzapine 5 Mg Tablet) 5 mg PO BEDTIME TIMOTEO Last Admin: 01/08/22 21:34 Dose: Not Given Olanzapine (Olanzapine 10 Mg Vial) 5 mg IM BEDTIME PRN PRN Reason: refusal of PO Last Admin: 01/08/22 21:32 Dose: 5 mg Trazodone HCl (Trazodone Hcl 50 Mg Tablet) 50 mg PO BEDTIME PRN PRN Reason: Insomnia Last Admin: 01/08/22 21:30 Dose: 50 mg Allergies Allergies Allergy/AdvReac Type Severity Reaction Status Date / Time codeine Allergy Unknown Unknown Verified 12/15/21 18:29 sulfadiazine Allergy Unknown Unknown Verified 12/15/21 18:29 Assessment & Plan Assessment & Plan (1) Dementia: Status: Acute Code(s): F03.90 - Unspecified dementia, unspecified severity, without behavioral disturbance, psychotic disturbance, mood disturbance, and anxiety Plan the patient is an elderly female with very poor ADL less grossly disorganized was referred to the emergency room by the social security specialist since she was paranoid, poorly kept and unable to take care of herself, her 6 days ago and she was unable to take care of herself. The patient apparently has been grossly disorganized and paranoid for years. Plan 1. Gather collateral information. 2. Continue with same medications. 3. Continue with antipsychotics. 4. Zyprexa back up IM if she refuses I spent __20____ minutes with the patient and/or on the patient floor today, greater than?50% of which was spent counseling/coordinating care. Reason for contiued inpatient stay Substantial Risk for: inability to function, rapid decompensation and med/psych decompensation
[2022-01-09 18:00] VITALS: BP 179/79; PULSE 70; RESP 17; TEMP 37; O2SAT 97
[2022-01-09] MEDS: OLANZapine 5 MG TABLET PO (21:38)
[2022-01-09] MEDS: traZODone HCL 50 MG TABLET PO (21:40)
--- NOTE | 2022-01-10 13:02 | P.PNPSI_ITS ---
Subjective Subjective Date of Service: 01/10/22 Reason For Visit: Mood Subjective Notes: Conditional Voluntary Interim History: the staff has noticed the patient had been perseverative and he has been writing letters. The occupational therapist reported the patient does not participate in any groups and she is focused on wrecking her letters. The outreach and education social worker reported that her family does not want to engage in her care since she had being very ET shoes and she has tried to shoe relatives in the past. On interview the patient is unable to remember that we have interactions yesterday and we discussed this issues. She agreed to have a CT SCAN chest to R/O Ca. Mental Status Exam Mental Status Exam Patient Appearance: Appropriate Patient Orientation: Person and Situation Level of Consciousness: Disoriented and Restless Patient Behavior: Guarded Mood Description: Appropriate and Labile Affect Description: Constricted Patient Cognition Impaired: Yes Ability to Follow Directions: Good Speech Pattern: Clear Hallucinations: None Delusions: Paranoid Ideation Thought Process: Illogical Thought Content: positive for [place] and positive for [place] of Content Judgement: Fair Diagnostics Vital Signs (24Hr): Vital Signs - 24 hr 01/09/22 18:00 Temperature 98.6 F Pulse Rate 70 Respiratory Rate 17 Blood Pressure 179/79 H Pulse Oximetry 97 Oxygen Delivery Method Room Air BMI result Body Mass Index 25.9 Labs Results: 12/15/21 20:40 12/17/21 07:58 Medications Medications Current Medications Acetaminophen (Acetaminophen 325 Mg Tablet) 650 mg PO Q6H PRN PRN Reason: Headache/Pain Mild Scale (1-3) Al Hydroxide/Mg Hydroxide (Magnesium Hydrox/Alum Hydrox 30 Ml Oral.Susp) 30 ml PO Q6H PRN PRN Reason: Heartburn/Nausea Donepezil HCl (Donepezil Hcl 5 Mg Tablet) 5 mg PO BEDTIME TIMOTEO Last Admin: 01/09/22 21:39 Dose: Not Given Hydroxyzine HCl (Hydroxyzine Hcl 25 Mg Tablet) 25 mg PO Q6H PRN PRN Reason: Anxiety Ketoconazole (Ketoconazole 2 % Shampoo 120 Ml Btl) 1 appl TOPICAL MoTh TIMOTEO; Protocol Last Admin: 01/09/22 15:20 Dose: Not Given Magnesium Hydroxide (Milk Of Magnesia 30 Ml Oral.Susp) 30 ml PO DAILY PRN PRN Reason: Constipation Olanzapine (Olanzapine 5 Mg Tablet) 5 mg PO BEDTIME TIMOTEO Last Admin: 01/09/22 21:38 Dose: 5 mg Olanzapine (Olanzapine 10 Mg Vial) 5 mg IM BEDTIME PRN PRN Reason: refusal of PO Last Admin: 01/08/22 21:32 Dose: 5 mg Trazodone HCl (Trazodone Hcl 50 Mg Tablet) 50 mg PO BEDTIME PRN PRN Reason: Insomnia Last Admin: 01/09/22 21:40 Dose: 50 mg Allergies Allergies Allergy/AdvReac Type Severity Reaction Status Date / Time codeine Allergy Unknown Unknown Verified 12/15/21 18:29 sulfadiazine Allergy Unknown Unknown Verified 12/15/21 18:29 Assessment & Plan Assessment & Plan (1) Dementia: Status: Acute Code(s): F03.90 - Unspecified dementia, unspecified severity, without behavioral disturbance, psychotic disturbance, mood disturbance, and anxiety Plan the patient is an elderly female with very poor ADL less grossly disorganized was referred to the emergency room by the psychiatric social worker supervisor since she was paranoid, poorly kept and unable to take care of herself, her 6 days ago and she was unable to take care of herself. The patient apparently has been grossly disorganized and paranoid for years. Plan 1. Gather collateral information. 2. Continue with same medications. 3. Continue with antipsychotics. 4. Zyprexa back up IM if she refuses. 5. F/U CT scan chest I spent __20____ minutes with the patient and/or on the patient floor today, greater than?50% of which was spent counseling/coordinating care. Reason for contiued inpatient stay Substantial Risk for: inability to function, rapid decompensation and med/psych decompensation
[2022-01-10 19:00] VITALS: BP 162/74; PULSE 72; RESP 18; TEMP 36.4; O2SAT 95
[2022-01-10] MEDS: traZODone HCL 50 MG TABLET PO (22:24)
[2022-01-10] MEDS: OLANZapine 10 MG VIAL 5 MG IM (22:40)
--- NOTE | 2022-01-11 04:38 | PC.NURSE ---
Pt education provided on the importance of taking PO scheduled HS zyprexa with negative effect. Pt refused. Education provided on [place] Order with negative results. Im not taking this, I'm your elder. You don't tell me what to fucking do. Get that pill away from me. Im not taking this! Education on [place] order performed. I don't give a fuck! I am not taking this! Security was called. I'm not taking the pill! IM zyprexa administered per [place] order
[2022-01-11 06:00] VITALS: BP 187/79; PULSE 94; TEMP 36.8; O2SAT 96
--- NOTE | 2022-01-11 12:26 | P.PNPSI_ITS ---
Subjective Subjective Date of Service: 01/11/22 Reason For Visit: Mood Subjective Notes: Section 7 and Section 8 Healthcare Proxy: No Guardianship: No Interim History: The nursing staff reported that yesterday the patient refused her Zyprexa p.o. and she got IM. She requests trazodone at night. Yesterday, she had a CT scan chest and there were no others home both cavities. We will consult Oncology. On interview, the patient reports that she wants to go home, she is unable to remember the we had this conversation before. Mental Status Exam Mental Status Exam Patient Appearance: Well Grooomed Patient Orientation: Person and Situation Level of Consciousness: Awake Patient Behavior: Guarded Mood Description: Withdrawn Affect Description: Labile Patient Cognition Impaired: Yes Ability to Follow Directions: Good Speech Pattern: Clear Hallucinations: None Delusions: Paranoid Ideation Thought Process: Distracted and Evasive Thought Content: positive for [place], positive for Circumstantial and positive for Perseveration Judgement: Poor Diagnostics Vital Signs (24Hr): Vital Signs - 24 hr 01/10/22 19:00 01/11/22 06:00 Temperature 97.6 F 98.2 F Pulse Rate 72 94 Respiratory Rate 18 Blood Pressure 162/74 H 187/79 H Pulse Oximetry 95 96 Oxygen Delivery Method Room Air Room Air BMI result Body Mass Index 25.9 Labs Results: 12/15/21 20:40 12/17/21 07:58 Imaging Radiology Impressions: ITS Impressions Chest CT 01/10/22 15:11 IMPRESSION: Bilateral small pulmonary nodules, left greater than right. Biapical pleural and parenchymal scarring. 1.1 x 1.4 cm heterogeneous or semisolid right apical nodule, question related to pleural and parenchymal scarring. 1.5 cm partially calcified left thyroid nodule. Based on patient age in size, this does not meet criteria for follow-up. Moderate coronary artery calcification. Fleischner guidelines were followed. Medications Medications Current Medications Acetaminophen (Acetaminophen 325 Mg Tablet) 650 mg PO Q6H PRN PRN Reason: Headache/Pain Mild Scale (1-3) Al Hydroxide/Mg Hydroxide (Magnesium Hydrox/Alum Hydrox 30 Ml Oral.Susp) 30 ml PO Q6H PRN PRN Reason: Heartburn/Nausea Donepezil HCl (Donepezil Hcl 5 Mg Tablet) 5 mg PO BEDTIME TIMOTEO Last Admin: 01/10/22 21:00 Dose: Not Given Hydroxyzine HCl (Hydroxyzine Hcl 25 Mg Tablet) 25 mg PO Q6H PRN PRN Reason: Anxiety Ketoconazole (Ketoconazole 2 % Shampoo 120 Ml Btl) 1 appl TOPICAL MoTh TIMOTEO; Protocol Last Admin: 01/09/22 15:20 Dose: Not Given Magnesium Hydroxide (Milk Of Magnesia 30 Ml Oral.Susp) 30 ml PO DAILY PRN PRN Reason: Constipation Olanzapine (Olanzapine 5 Mg Tablet) 5 mg PO BEDTIME TIMOTEO Last Admin: 01/10/22 21:00 Dose: Not Given Olanzapine (Olanzapine 10 Mg Vial) 5 mg IM BEDTIME PRN PRN Reason: refusal of PO Last Admin: 01/10/22 22:40 Dose: 5 mg Trazodone HCl (Trazodone Hcl 50 Mg Tablet) 50 mg PO BEDTIME PRN PRN Reason: Insomnia Last Admin: 01/10/22 22:24 Dose: 50 mg Allergies Allergies Allergy/AdvReac Type Severity Reaction Status Date / Time codeine Allergy Unknown Unknown Verified 12/15/21 18:29 sulfadiazine Allergy Unknown Unknown Verified 12/15/21 18:29 Assessment & Plan Assessment & Plan (1) Dementia: Status: Acute Code(s): F03.90 - Unspecified dementia, unspecified severity, without behavioral disturbance, psychotic disturbance, mood disturbance, and anxiety Plan the patient is an elderly female with very poor ADL less grossly disorganized was referred to the emergency room by the social insurance analyst since she was paranoid, poorly kept and unable to take care of herself, her 6 days ago and she was unable to take care of herself. The patient apparently has been grossly disorganized and paranoid for years. Plan 1. Gather collateral information. 2. Continue with same medications. 3. Continue with antipsychotics. 4. Zyprexa back up IM if she refuses. 5. F/U CT scan chest . 6. Consult Oncology I spent ___20___ minutes with the patient and/or on the patient floor today, greater than?50% of which was spent counseling/coordinating care. Reason for contiued inpatient stay Substantial Risk for: inability to function, rapid decompensation and med/psych decompensation
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
[2022-01-11 18:00] VITALS: BP 156/78; PULSE 67; RESP 18; TEMP 37.1; O2SAT 95
[2022-01-11] MEDS: OLANZapine 10 MG VIAL 5 MG IM (20:58)
[2022-01-11] MEDS: traZODone HCL 50 MG TABLET PO (21:50)
[2022-01-12 07:00] VITALS: BMI 26.0
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
[2022-01-12 18:00] VITALS: BP 168/70; PULSE 90; RESP 18; TEMP 36.9; O2SAT 95
[2022-01-12] MEDS: traZODone HCL 50 MG TABLET PO (20:55)
[2022-01-12] MEDS: OLANZapine 10 MG VIAL 5 MG IM (21:06)
--- NOTE | 2022-01-12 21:08 | PC.NURSE ---
Pt refused PO scheduled olanzapine. Education provided multiple times on importance of taking medication per Farooq's Order. Pt continues to refuse. Education provided with negative effect. Patient refused PO scheduled olanzapine. IM olanzapine given.
[2022-01-13 06:00] VITALS: BP 176/81; PULSE 65; RESP 18; TEMP 36.4; O2SAT 96
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
[2022-01-13 18:00] VITALS: BP 179/65; PULSE 75; RESP 16; TEMP 36.8; O2SAT 98
[2022-01-13] MEDS: OLANZapine 5 MG TABLET PO (22:51)
[2022-01-13] MEDS: Donepezil HCl 5 MG TABLET PO (22:51)
[2022-01-13] MEDS: traZODone HCL 50 MG TABLET PO (22:51)
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
[2022-01-14 18:00] VITALS: BP 179/95; PULSE 74; RESP 18; TEMP 37; O2SAT 96
[2022-01-14] MEDS: OLANZapine 5 MG TABLET PO (21:28)
[2022-01-14] MEDS: traZODone HCL 50 MG TABLET PO (21:28)
--- NOTE | 2022-01-15 10:11 | HO.PSYCHPN ---
Subjective Subjective Date of Service: 01/15/22 Reason For Visit: Mood Subjective Notes: Section 8 Interim History: Pt sitting in table. Peer on unit had rapid response, pt watching pt. Pt states I'm fine, just hoping that poor old man gets better. Pt denies any physical concerns. No SI/HI. Suspicious. Per nursing, no significant behavioral concerns. VS wnl. Review of Systems Review of Systems Yes Unobtainable due to mental status Constitutional: Reports no additional constitutional complaints Eyes: Reports no additional eye complaints Reports system reviewed and no additional complaints, except as documented Cardiovascular: Reports no additional cardiovascular complaints Respiratory: Reports no additional respiratory complaints Gastrointestinal: Reports no additional gastrointestinal complaints Musculoskeletal: Reports no additional musculoskeletal complaints Skin/Breast: Reports system reviewed and no additional complaints, except as docu Reports system reviewed and no additional complaints, except as documented Psychiatric: Reports no additional psychiatric complaints Endocrine: Reports no additional endocrine complaints Hematologic/Lymphatic: Reports no additional hematologic/lymphatic complaints Allergic/Immunologic: Reports no additional allergic/immunologic complaints Mental Status Exam Mental Status Exam Narrative: Appearance: casually groomed, fair hygiene in NAD Behavior:guarded and suspicious psychomotor: no agitation or retardation noted Speech:clear, minimally spontaneous, regular rate. Thought process: Thought content: Mood:unable to assess Affect: guarded, suspicious SI:unable to assess HI:unable to assess VH/AH:none Delusions:suspiciousness Insight/judgment:impaired x 2. Memory/cog: alert, not formally tested. Diagnostics Vital Signs (24Hr): Vital Signs - 24 hr 01/15/22 18:00 Temperature 98.7 F Pulse Rate 80 Respiratory Rate 18 Blood Pressure 157/68 H Pulse Oximetry 97 Oxygen Delivery Method Room Air BMI result Body Mass Index 26.0 Labs Results: 12/15/21 20:40 12/17/21 07:58 Imaging Radiology Impressions: ITS Impressions Chest CT 01/10/22 15:11 IMPRESSION: Bilateral small pulmonary nodules, left greater than right. Biapical pleural and parenchymal scarring. 1.1 x 1.4 cm heterogeneous or semisolid right apical nodule, question related to pleural and parenchymal scarring. 1.5 cm partially calcified left thyroid nodule. Based on patient age in size, this does not meet criteria for follow-up. Moderate coronary artery calcification. Fleischner guidelines were followed. Medications Medications Current Medications Acetaminophen (Acetaminophen 325 Mg Tablet) 650 mg PO Q6H PRN PRN Reason: Headache/Pain Mild Scale (1-3) Al Hydroxide/Mg Hydroxide (Magnesium Hydrox/Alum Hydrox 30 Ml Oral.Susp) 30 ml PO Q6H PRN PRN Reason: Heartburn/Nausea Donepezil HCl (Donepezil Hcl 5 Mg Tablet) 5 mg PO BEDTIME TIMOTEO Last Admin: 01/15/22 21:05 Dose: Not Given Hydroxyzine HCl (Hydroxyzine Hcl 25 Mg Tablet) 25 mg PO Q6H PRN PRN Reason: Anxiety Ketoconazole (Ketoconazole 2 % Shampoo 120 Ml Btl) 1 appl TOPICAL MoTh TIMOTEO; Protocol Last Admin: 01/12/22 14:02 Dose: Not Given Magnesium Hydroxide (Milk Of Magnesia 30 Ml Oral.Susp) 30 ml PO DAILY PRN PRN Reason: Constipation Olanzapine (Olanzapine 5 Mg Tablet) 5 mg PO BEDTIME TIMOTEO Last Admin: 01/15/22 21:07 Dose: Not Given Olanzapine (Olanzapine 10 Mg Vial) 5 mg IM BEDTIME PRN PRN Reason: refusal of PO Last Admin: 01/15/22 21:26 Dose: 5 mg Trazodone HCl (Trazodone Hcl 50 Mg Tablet) 50 mg PO BEDTIME PRN PRN Reason: Insomnia Last Admin: 01/15/22 21:02 Dose: 50 mg Allergies Allergies Allergy/AdvReac Type Severity Reaction Status Date / Time codeine Allergy Unknown Unknown Verified 12/15/21 18:29 sulfadiazine Allergy Unknown Unknown Verified 12/15/21 18:29 Assessment & Plan Assessment & Plan (1) Psychosis: Status: Acute Code(s): F29 - Unspecified psychosis not due to a substance or known physiological condition Plan The patient is an elderly female, recently , with poor social support, no help from family or a with and says, admitted into the hospital for psychotic symptoms elicited by paranoia against a major of [facility], failure to thrive and hoarding. Please see the HPI of the admission note for further details. Currently on Section 7 and 8 since the patient wants to leave and does not have any insight into her condition. Plan 1. Continue with Zyprexa as per court order. 2. Guardianship paperwork since the patient cannot take informed decisions. 3. The oncologist already review her case due to the masses of her both lungs but the patient refused to have the procedure of biopsy. 01/14 continue current medications. 01/15 continue current medications. I spent minutes with the patient and/or on the patient floor today, greater than?50% of which was spent counseling/coordinating care. Reason for contiued inpatient stay Substantial Risk for: inability to function
[2022-01-15 18:00] VITALS: BP 157/68; PULSE 80; RESP 18; TEMP 37.1; O2SAT 97
[2022-01-15] MEDS: traZODone HCL 50 MG TABLET PO (21:02)
[2022-01-15] MEDS: OLANZapine 10 MG VIAL 5 MG IM (21:26)
[2022-01-16 06:00] VITALS: BP 176/77; PULSE 70; RESP 16; TEMP 36.4; O2SAT 94
--- NOTE | 2022-01-16 13:19 | P.PNPSI_ITS ---
Subjective Subjective Date of Service: 01/16/22 Reason For Visit: Mood Subjective Notes: Section 7 and Section 8 Interim History: The nursing staff reported the patient has been consistently refused her Zyprexa at night and last night she got IM as per court order. Even though that she denies at present she requested trazodone for sleep. She has been refusing A ricept and Zyprexa in a consistent manner. The nursing staff reported that she slept for 6 hours. The occupational therapist reported the patient is not engageable in any activities in the unit, she keeps writing her letters. On interview the patient demanded to be discharged I tried to explain her again that she is on a Section 7 and 8 that the patient is unable to remember that we had this conversation every day. She stated that she has relatives who can help but her relatives were contacted by the social secretary and they don't want to get involved. She wrote me a letter again. Mental Status Exam Mental Status Exam Patient Appearance: Appropriate Patient Orientation: Person and Situation Level of Consciousness: Awake Patient Behavior: Guarded Mood Description: Withdrawn Affect Description: Constricted Patient Cognition Impaired: Yes Ability to Follow Directions: Fair Speech Pattern: Clear Hallucinations: None Delusions: Paranoid Ideation Thought Process: Distracted and Linear Thought Content: positive for [place], positive for Obsessional Thoughts and positive for Poverty of Content Judgement: Poor Diagnostics Vital Signs (24Hr): Vital Signs - 24 hr 01/15/22 18:00 01/16/22 06:00 Temperature 98.7 F 97.5 F Pulse Rate 80 70 Respiratory Rate 18 16 Blood Pressure 157/68 H 176/77 H Pulse Oximetry 97 94 Oxygen Delivery Method Room Air Room Air BMI result Body Mass Index 26.0 Labs Results: 12/15/21 20:40 12/17/21 07:58 Imaging Radiology Impressions: ITS Impressions Chest CT 01/10/22 15:11 IMPRESSION: Bilateral small pulmonary nodules, left greater than right. Biapical pleural and parenchymal scarring. 1.1 x 1.4 cm heterogeneous or semisolid right apical nodule, question related to pleural and parenchymal scarring. 1.5 cm partially calcified left thyroid nodule. Based on patient age in size, this does not meet criteria for follow-up. Moderate coronary artery calcification. Fleischner guidelines were followed. Medications Medications Current Medications Acetaminophen (Acetaminophen 325 Mg Tablet) 650 mg PO Q6H PRN PRN Reason: Headache/Pain Mild Scale (1-3) Al Hydroxide/Mg Hydroxide (Magnesium Hydrox/Alum Hydrox 30 Ml Oral.Susp) 30 ml PO Q6H PRN PRN Reason: Heartburn/Nausea Donepezil HCl (Donepezil Hcl 5 Mg Tablet) 5 mg PO BEDTIME TIMOTEO Last Admin: 01/15/22 21:05 Dose: Not Given Hydroxyzine HCl (Hydroxyzine Hcl 25 Mg Tablet) 25 mg PO Q6H PRN PRN Reason: Anxiety Ketoconazole (Ketoconazole 2 % Shampoo 120 Ml Btl) 1 appl TOPICAL MoTh TIMOTEO; Protocol Last Admin: 01/12/22 14:02 Dose: Not Given Magnesium Hydroxide (Milk Of Magnesia 30 Ml Oral.Susp) 30 ml PO DAILY PRN PRN Reason: Constipation Olanzapine (Olanzapine 5 Mg Tablet) 5 mg PO BEDTIME TIMOTEO Last Admin: 01/15/22 21:07 Dose: Not Given Olanzapine (Olanzapine 10 Mg Vial) 5 mg IM BEDTIME PRN PRN Reason: refusal of PO Last Admin: 01/15/22 21:26 Dose: 5 mg Trazodone HCl (Trazodone Hcl 50 Mg Tablet) 50 mg PO BEDTIME PRN PRN Reason: Insomnia Last Admin: 01/15/22 21:02 Dose: 50 mg Allergies Allergies Allergy/AdvReac Type Severity Reaction Status Date / Time codeine Allergy Unknown Unknown Verified 12/15/21 18:29 sulfadiazine Allergy Unknown Unknown Verified 12/15/21 18:29 Assessment & Plan Assessment & Plan (1) Psychosis: Status: Acute Code(s): F29 - Unspecified psychosis not due to a substance or known physiological condition Plan The patient is an elderly female, recently , with poor social sup port, no help from family or a with and says, admitted into the hospital for psychotic symptoms elicited by paranoia against a major of [facility], failure to thrive and hoarding. Please see the HPI of the admission note for further details. Currently on Section 7 and 8 since the patient wants to leave and does not have any insight into her condition. Plan 1. Continue with Zyprexa as per court order. 2. Guardianship paperwork since the patient cannot take informed decisions. 3. The oncologist already review her case due to the masses of her both lungs but the patient refused to have the procedure of biopsy. I spent ___20___ minutes with the patient and/or on the patient floor today, greater than?50% of which was spent counseling/coordinating care. Reason for contiued inpatient stay Substantial Risk for: inability to function, rapid decompensation and med/psych decompensation
[2022-01-16 18:00] VITALS: BP 162/71; PULSE 89; RESP 18; TEMP 36.6; O2SAT 94
[2022-01-16] MEDS: traZODone HCL 50 MG TABLET PO (21:02)
[2022-01-16] MEDS: OLANZapine 5 MG TABLET PO (21:03)
[2022-01-17 07:40] VITALS: BP 160/92; PULSE 75; RESP 17; TEMP 36.2; O2SAT 95
--- NOTE | 2022-01-17 13:50 | HO.PSYCHPN ---
Subjective Subjective Date of Service: 01/17/22 Reason For Visit: Mood Subjective Notes: Conditional Voluntary Interim History: The nursing staff has reported the patient has episodes that she has cooperative and pleasant, even sit and then later on very angry and irritable yelling at peers and staff. Yesterday we have a long conversation about her advance directives and her will. On interview the patient denies new symptoms she wants to be discharged, unable to understand the legal process that she has to do, very poor short-term memory confused at times but able to remember that she wants to do a living will and leave her possessions to a family member.. Mental Status Exam Mental Status Exam Patient Appearance: Well Grooomed Patient Orientation: Person and Situation Level of Consciousness: Awake Patient Behavior: Guarded Mood Description: Labile Affect Description: Angry Patient Cognition Impaired: Yes Ability to Follow Directions: Good Speech Pattern: Clear Hallucinations: None Delusions: Paranoid Ideation Thought Process: Distracted Thought Content: positive for [place] Judgement: Poor Diagnostics Vital Signs (24Hr): Vital Signs - 24 hr 01/16/22 18:00 01/17/22 07:40 Temperature 97.9 F 97.2 F Pulse Rate 89 75 Respiratory Rate 18 17 Blood Pressure 162/71 H 160/92 H Pulse Oximetry 94 95 Oxygen Delivery Method Room Air Room Air BMI result Body Mass Index 26.0 Labs Results: 12/15/21 20:40 12/17/21 07:58 Imaging Radiology Impressions: ITS Impressions Chest CT 01/10/22 15:11 IMPRESSION: Bilateral small pulmonary nodules, left greater than right. Biapical pleural and parenchymal scarring. 1.1 x 1.4 cm heterogeneous or semisolid right apical nodule, question related to pleural and parenchymal scarring. 1.5 cm partially calcified left thyroid nodule. Based on patient age in size, this does not meet criteria for follow-up. Moderate coronary artery calcification. Fleischner guidelines were followed. Medications Medications Current Medications Acetaminophen (Acetaminophen 325 Mg Tablet) 650 mg PO Q6H PRN PRN Reason: Headache/Pain Mild Scale (1-3) Al Hydroxide/Mg Hydroxide (Magnesium Hydrox/Alum Hydrox 30 Ml Oral.Susp) 30 ml PO Q6H PRN PRN Reason: Heartburn/Nausea Donepezil HCl (Donepezil Hcl 5 Mg Tablet) 5 mg PO BEDTIME TIMOTEO Last Admin: 01/16/22 23:33 Dose: Not Given Hydroxyzine HCl (Hydroxyzine Hcl 25 Mg Tablet) 25 mg PO Q6H PRN PRN Reason: Anxiety Ketoconazole (Ketoconazole 2 % Shampoo 120 Ml Btl) 1 appl TOPICAL MoTh TIMOTEO; Protocol Last Admin: 01/16/22 13:41 Dose: Not Given Magnesium Hydroxide (Milk Of Magnesia 30 Ml Oral.Susp) 30 ml PO DAILY PRN PRN Reason: Constipation Olanzapine (Olanzapine 5 Mg Tablet) 5 mg PO BEDTIME TIMOTEO Last Admin: 01/16/22 21:03 Dose: 5 mg Olanzapine (Olanzapine 10 Mg Vial) 5 mg IM BEDTIME PRN PRN Reason: refusal of PO Last Admin: 01/15/22 21:26 Dose: 5 mg Trazodone HCl (Trazodone Hcl 50 Mg Tablet) 50 mg PO BEDTIME PRN PRN Reason: Insomnia Last Admin: 01/16/22 21:02 Dose: 50 mg Allergies Allergies Allergy/AdvReac Type Severity Reaction Status Date / Time codeine Allergy Unknown Unknown Verified 12/15/21 18:29 sulfadiazine Allergy Unknown Unknown Verified 12/15/21 18:29 Assessment & Plan Assessment & Plan (1) Psychosis: Status: Acute Code(s): F29 - Unspecified psychosis not due to a substance or known physiological condition Plan The patient is an elderly female, recently , with poor social support, no help from family or a with and says, admitted into the hospital for psychotic symptoms elicited by paranoia against a major of [facility], failure to thrive and hoarding. Please see the HPI of the admission note for further details. Currently on Section 7 and 8 since the patient wants to leave and does not have any insight into her condition. Plan 1. Continue with Zyprexa as per court order. 2. Guardianship paperwork since the patient cannot take informed decisions. 3. The oncologist already review her case due to the masses of her both lungs but the patient refused to have the procedure of biopsy. I spent ___20___ minutes with the patient and/or on the patient floor today, greater than?50% of which was spent counseling/coordinating care. Reason for contiued inpatient stay Substantial Risk for: inability to function, rapid decompensation and med/psych decompensation
[2022-01-17 18:00] VITALS: BP 172/90; PULSE 70; RESP 16; TEMP 36.6; O2SAT 98
[2022-01-17] MEDS: OLANZapine 5 MG TABLET PO (20:20)
[2022-01-17] MEDS: traZODone HCL 50 MG TABLET PO (20:24)
--- NOTE | 2022-01-18 13:01 | HO.PSYCHPN ---
Subjective Subjective Date of Service: 01/18/22 Reason For Visit: Mood Subjective Notes: Conditional Voluntary Interim History: The nursing staff reported that yesterday she was out of yelling. Today in the morning she was angry demanding to be help with her breakfast. The social work therapist reported that yesterday she spent nearly an hour with the patient because she was asking to get her home owners insurance. Apparently her has not been paid since September and she does not have home financial services specialist insurance at this moment. On interview the patient is confused, unable to remember the conversation with the day before. Mental Status Exam Mental Status Exam Patient Appearance: Appropriate Patient Orientation: Person and Situation Level of Consciousness: Disoriented Mood Description: Withdrawn and Hostile Affect Description: Labile Patient Cognition Impaired: Yes Ability to Follow Directions: Good Speech Pattern: Clear Hallucinations: None Delusions: Paranoid Ideation Thought Process: Distracted and Evasive Thought Content: positive for [place], positive for Obsessional Thoughts and positive for Poverty of Content Judgement: Poor Diagnostics Vital Signs (24Hr): Vital Signs - 24 hr 01/17/22 18:00 Temperature 98 F Pulse Rate 70 Respiratory Rate 16 Blood Pressure 172/90 H Pulse Oximetry 98 Oxygen Delivery Method Room Air BMI result Body Mass Index 26.0 Labs Results: 12/15/21 20:40 12/17/21 07:58 Imaging Radiology Impressions: ITS Impressions Chest CT 01/10/22 15:11 IMPRESSION: Bilateral small pulmonary nodules, left greater than right. Biapical pleural and parenchymal scarring. 1.1 x 1.4 cm heterogeneous or semisolid right apical nodule, question related to pleural and parenchymal scarring. 1.5 cm partially calcified left thyroid nodule. Based on patient age in size, this does not meet criteria for follow-up. Moderate coronary artery calcification. Fleischner guidelines were followed. Medications Medications Current Medications Acetaminophen (Acetaminophen 325 Mg Tablet) 650 mg PO Q6H PRN PRN Reason: Headache/Pain Mild Scale (1-3) Al Hydroxide/Mg Hydroxide (Magnesium Hydrox/Alum Hydrox 30 Ml Oral.Susp) 30 ml PO Q6H PRN PRN Reason: Heartburn/Nausea Donepezil HCl (Donepezil Hcl 5 Mg Tablet) 5 mg PO BEDTIME TIMOTEO Last Admin: 01/18/22 00:03 Dose: Not Given Hydroxyzine HCl (Hydroxyzine Hcl 25 Mg Tablet) 25 mg PO Q6H PRN PRN Reason: Anxiety Ketoconazole (Ketoconazole 2 % Shampoo 120 Ml Btl) 1 appl TOPICAL MoTh TIMOTEO; Protocol Last Admin: 01/16/22 13:41 Dose: Not Given Magnesium Hydroxide (Milk Of Magnesia 30 Ml Oral.Susp) 30 ml PO DAILY PRN PRN Reason: Constipation Olanzapine (Olanzapine 5 Mg Tablet) 5 mg PO BEDTIME TIMOTEO Last Admin: 01/17/22 20:20 Dose: 5 mg Olanzapine (Olanzapine 10 Mg Vial) 5 mg IM BEDTIME PRN PRN Reason: refusal of PO Last Admin: 01/15/22 21:26 Dose: 5 mg Trazodone HCl (Trazodone Hcl 50 Mg Tablet) 50 mg PO BEDTIME PRN PRN Reason: Insomnia Last Admin: 01/17/22 20:24 Dose: 50 mg Allergies Allergies Allergy/AdvReac Type Severity Reaction Status Date / Time codeine Allergy Unknown Unknown Verified 12/15/21 18:29 sulfadiazine Allergy Unknown Unknown Verified 12/15/21 18:29 Assessment & Plan Assessment & Plan (1) Psychosis: Status: Acute Code(s): F29 - Unspecified psychosis not due to a substance or known physiological condition Plan The patient is an elderly female, recently , with poor social support, no help from family or a with and says, admitted into the hospital for psychotic symptoms elicited by paranoia against a major of was [place], failure to thrive and hoarding. Please see the HPI of the admission note for further details. Currently on Section 7 and 8 since the patient wants to leave and does not have any insight into her condition. Plan 1. Continue with Zyprexa as per court order. 2. Guardianship paperwork since the patient cannot take informed decisions. 3. The oncologist already review her case due to the masses of her both lungs but the patient refused to have the procedure of biopsy. I spent ___20___ minutes with the patient and/or on the patient floor today, greater than?50% of which was spent counseling/coordinating care. Reason for contiued inpatient stay Substantial Risk for: inability to function, rapid decompensation and med/psych decompensation
[2022-01-18 18:00] VITALS: BP 172/89; PULSE 73; RESP 16; TEMP 36.9; O2SAT 96
[2022-01-18] MEDS: traZODone HCL 50 MG TABLET PO (20:08)
[2022-01-18] MEDS: OLANZapine 5 MG TABLET PO (20:08)
--- NOTE | 2022-01-19 13:25 | P.PNPSI_ITS ---
Subjective Subjective Date of Service: 01/19/22 Reason For Visit: Mood Subjective Notes: Conditional Voluntary Interim History: The nursing staff reported that yesterday had been more sleepy and she was very tired. She could not sleep well last night. Even though she was not seen yelling or acting out. The patient has no Black her lung that she refused to do the biopsies to. Since we do not have a guardian to take decisions for her we cannot act at this [facility]. We had discussed with the social work nurse and the patient about a MOLST and she is thinking about it. Mental Status Exam Mental Status Exam Patient Appearance: Appropriate Patient Orientation: Person and Situation Level of Consciousness: Disoriented and Restless Patient Behavior: Guarded Mood Description: Withdrawn Affect Description: Labile Patient Cognition Impaired: Yes Ability to Follow Directions: Good Speech Pattern: Clear Hallucinations: None Delusions: Paranoid Ideation Thought Content: positive for [place] Judgement: Poor Diagnostics Vital Signs (24Hr): Vital Signs - 24 hr 01/18/22 18:00 Temperature 98.4 F Pulse Rate 73 Respiratory Rate 16 Blood Pressure 172/89 H Pulse Oximetry 96 Oxygen Delivery Method Room Air BMI result Body Mass Index 26.0 Labs Results: 12/15/21 20:40 12/17/21 07:58 Imaging Radiology Impressions: ITS Impressions Chest CT 01/10/22 15:11 IMPRESSION: Bilateral small pulmonary nodules, left greater than right. Biapical pleural and parenchymal scarring. 1.1 x 1.4 cm heterogeneous or semisolid right apical nodule, question related to pleural and parenchymal scarring. 1.5 cm partially calcified left thyroid nodule. Based on patient age in size, this does not meet criteria for follow-up. Moderate coronary artery calcification. Fleischner guidelines were followed. Medications Medications Current Medications Acetaminophen (Acetaminophen 325 Mg Tablet) 650 mg PO Q6H PRN PRN Reason: Headache/Pain Mild Scale (1-3) Al Hydroxide/Mg Hydroxide (Magnesium Hydrox/Alum Hydrox 30 Ml Oral.Susp) 30 ml PO Q6H PRN PRN Reason: Heartburn/Nausea Donepezil HCl (Donepezil Hcl 5 Mg Tablet) 5 mg PO BEDTIME TIMOTEO Last Admin: 01/18/22 21:56 Dose: Not Given Hydroxyzine HCl (Hydroxyzine Hcl 25 Mg Tablet) 25 mg PO Q6H PRN PRN Reason: Anxiety Ketoconazole (Ketoconazole 2 % Shampoo 120 Ml Btl) 1 appl TOPICAL MoTh TIMOTEO; Protocol Last Admin: 01/16/22 13:41 Dose: Not Given Magnesium Hydroxide (Milk Of Magnesia 30 Ml Oral.Susp) 30 ml PO DAILY PRN PRN Reason: Constipation Olanzapine (Olanzapine 5 Mg Tablet) 5 mg PO BEDTIME TIMOTEO Last Admin: 01/18/22 20:08 Dose: 5 mg Olanzapine (Olanzapine 10 Mg Vial) 5 mg IM BEDTIME PRN PRN Reason: refusal of PO Last Admin: 01/15/22 21:26 Dose: 5 mg Trazodone HCl (Trazodone Hcl 50 Mg Tablet) 50 mg PO BEDTIME PRN PRN Reason: Insomnia Last Admin: 01/18/22 20:08 Dose: 50 mg Allergies Allergies Allergy/AdvReac Type Severity Reaction Status Date / Time codeine Allergy Unknown Unknown Verified 12/15/21 18:29 sulfadiazine Allergy Unknown Unknown Verified 12/15/21 18:29 Assessment & Plan Assessment & Plan (1) Psychosis: Status: Acute Code(s): F29 - Unspecified psychosis not due to a substance or known physiological condition Plan The patient is an elderly female, recently , with poor social support, no help from family or a with and says, admitted into the hospital for psychotic symptoms elicited by paranoia against a major of [facility], failure to thrive and hoarding. Please see the HPI of the admission note for further details. Currently on Section 7 and 8 since the patient wants to leave and does not have any insight into her condition. Plan 1. Continue with Zyprexa as per court order. 2. Guardianship paperwork since the patient cannot take informed decisions. 3. The oncologist already review her case due to the masses of her both lungs but the patient refused to have the procedure of biopsy. 4. MOLST for tomorrow.. I spent __20____ minutes with the patient and/or on the patient floor today, greater than?50% of which was spent counseling/coordinating care. Reason for contiued inpatient stay Substantial Risk for: inability to function, rapid decompensation and med/psych decompensation
[2022-01-19 17:50] VITALS: BMI 26.6
[2022-01-19 18:00] VITALS: BP 168/68; PULSE 76; RESP 18; TEMP 37.1; O2SAT 97
[2022-01-19] MEDS: traZODone HCL 50 MG TABLET PO (20:34)
[2022-01-19] MEDS: OLANZapine 5 MG TABLET PO (20:43)
[2022-01-20 08:17] LABS: MANUAL DIFF FLAG NO
[2022-01-20 08:22] LABS: Basophils Absolute Auto 0.1 X10*3/uL (0.0-0.2); Basophils Percent Auto 0.9 % (0-2); Eosinophils Absolute Auto 0.4 X10*3/uL (0.0-0.4); Eosinophils Percent Auto 5.6 % (0-4); Hemoglobin 13.3 g/dl (12.0-16.0); Imm Gran Abs Auto 0.04 X10*3/uL (0.00-0.03); Imm Gran Pct Auto 0.6 % (0.0-0.4); Lymphocytes Absolute Auto 1.8 X10*3/uL (1.2-4.9); Lymphocytes Percent Auto 26.9 % (20-40); Mean Corpuscular HGB Conc 33.3 g/dl (31.0-35.0); Mean Corpuscular Volume 93.2 fL (80.0-98.0); Monocytes Absolute Auto 0.8 X10*3/uL (0.1-1.2); Monocytes Percent Auto 12.5 % (2-11); Neutrophils Absolute Auto 3.5 x10*3/uL (2.0-8.3); Neutrophils Percent Auto 53.5 % (45-73); Platelet Count 212 X10*3/uL (160-400); Red Blood Count 4.29 X10*6/uL (4.20-5.50); Red Cell Distribution Width 14.3 % (11.0-16.0); White Blood Count 6.6 X10*3/uL (4.8-10.8)
[2022-01-20 08:29] LABS: Estimated Average Glucose 217 mg/dL; Hemoglobin A1c % 9.2 %
[2022-01-20 09:27] LABS: Alanine Aminotransferase 16 U/L (0-31); Albumin Level 3.7 g/dL (3.5-5.0); Alkaline Phosphatase 87 U/L (39-117); Anion Gap 18 (12-20); Aspartate Amino Transferase 13 U/L (5-31); Bilirubin Direct 0.2 mg/dL (0.0-0.5); Bilirubin Total 0.5 mg/dL (0.0-1.0); Blood Urea Nitrogen 22 mg/dL (9-16); Calcium 9.1 mg/dL (8.4-10.2); Carbon Dioxide 24 mmol/L (22-29); Chloride 103 mmol/L (96-108); Creatinine Clr Calc Pharmacy 39.4; Estimated Glomerular Filt Rate 45; Glucose Random 191 mg/dL (60-115); Potassium 4.1 mmol/L (3.3-5.1); Sodium 141 mmol/L (135-145); Total Protein 6.4 g/dL (6.5-8.0)
[2022-01-20 09:29] LABS: Thyroid Stimulating Hormone 1.59 uIU/mL (0.32-4.0)
--- NOTE | 2022-01-20 15:20 | P.PNPSI_ITS ---
Subjective Subjective Date of Service: 01/20/22 Reason For Visit: Mood Subjective Notes: Section 7 and Section 8 Interim History: The nursing staff reported the patient has taking her Zyprexa last night, she looks less irritable with less outbursts but still paranoid against the major of was [place]. On interview, the patient reported that she has been doing fine but it is clear that she has poor short-term memory and she is unable to process new informat ion. Eventhough, she looks pleasant and cooperative. We received a court letter stating that there will be another court hearing since she wants to be discharged, we will consult with our ground service equipment mechanic.. Mental Status Exam Mental Status Exam Patient Appearance: Well Grooomed Patient Orientation: Person and Situation Level of Consciousness: Awake Patient Behavior: Cooperative Mood Description: Withdrawn Affect Description: Depressed Patient Cognition Impaired: Yes Ability to Follow Directions: Good Speech Pattern: Clear Memory Description: Intact Hallucinations: None Delusions: Not Present Thought Process: Illogical Thought Content: positive for Obsessional Thoughts and positive for [place] of Content Judgement: Fair Diagnostics Vital Signs (24Hr): Vital Signs - 24 hr 01/19/22 18:00 Temperature 98.8 F Pulse Rate 76 Respiratory Rate 18 Blood Pressure 168/68 H Pulse Oximetry 97 Oxygen Delivery Method Room Air BMI result Body Mass Index 26.6 Labs Results: 01/20/22 08:00 01/20/22 08:00 Labs: Laboratory Results - last 48 hr 01/20/22 01/20/22 01/20/22 08:00 08:00 08:00 WBC 6.6 RBC 4.29 Hgb 13.3 Hct 40.0 MCV 93.2 MCH 31.0 MCHC 33.3 RDW 14.3 Plt Count 212 MPV 10.0 Immature Gran % (Auto) 0.6 H Neut % (Auto) 53.5 Lymph % (Auto) 26.9 [place] % (Auto) 12.5 H Eos % (Auto) 5.6 H Baso % (Auto) 0.9 Lymph # (Auto) 1.8 [place] # (Auto) 0.8 Eos # (Auto) 0.4 Baso # (Auto) 0.1 Abs Immat Gran (auto) 0.04 H Absolute Neuts (auto) 3.5 Absolute Nucleated RBC 0.000 Nucleated RBC % (auto) 0.0 Sodium 141 Potassium 4.1 Chloride 103 Carbon Dioxide 24 Anion Gap 18 BUN 22 H Creatinine 1.14 Estim Creat Clear Calc 39.4 Estimated GFR 45 Random Glucose 191 H Estimat Average Glucose 217 Hemoglobin A1c % 9.2 Calcium 9.1 Total Bilirubin 0.5 Direct Bilirubin 0.2 AST 13 ALT 16 Alkaline Phosphatase 87 D Total Protein 6.4 L Albumin 3.7 TSH 1.59 Imaging Radiology Impressions: ITS Impressions Chest CT 01/10/22 15:11 IMPRESSION: Bilateral small pulmonary nodules, left greater than right. Biapical pleural and parenchymal scarring. 1.1 x 1.4 cm heterogeneous or semisolid right apical nodule, question related to pleural and parenchymal scarring. 1.5 cm partially calcified left thyroid nodule. Based on patient age in size, this does not meet criteria for follow-up. Moderate coronary artery calcification. Fleischner guidelines were followed. Medications Medications Current Medications Acetaminophen (Acetaminophen 325 Mg Tablet) 650 mg PO Q6H PRN PRN Reason: Headache/Pain Mild Scale (1-3) Al Hydroxide/Mg Hydroxide (Magnesium Hydrox/Alum Hydrox 30 Ml Oral.Susp) 30 ml PO Q6H PRN PRN Reason: Heartburn/Nausea Donepezil HCl (Donepezil Hcl 5 Mg Tablet) 5 mg PO BEDTIME TIMOTEO Last Admin: 01/19/22 21:15 Dose: Not Given Hydroxyzine HCl (Hydroxyzine Hcl 25 Mg Tablet) 25 mg PO Q6H PRN PRN Reason: Anxiety Ketoconazole (Ketoconazole 2 % Shampoo 120 Ml Btl) 1 appl TOPICAL MoTh TIMOTEO; Protocol Last Admin: 01/19/22 14:56 Dose: Not Given Magnesium Hydroxide (Milk Of Magnesia 30 Ml Oral.Susp) 30 ml PO DAILY PRN PRN Reason: Constipation Olanzapine (Olanzapine 10 Mg Vial) 5 mg IM BEDTIME PRN PRN Reason: refusal of PO Last Admin: 01/15/22 21:26 Dose: 5 mg Olanzapine (Olanzapine 2.5 Mg Tablet) 2.5 mg PO BEDTIME TIMOTEO Trazodone HCl (Trazodone Hcl 50 Mg Tablet) 50 mg PO BEDTIME PRN PRN Reason: Insomnia Last Admin: 01/19/22 20:34 Dose: 50 mg Allergies Allergies Allergy/AdvReac Type Severity Reaction Status Date / Time codeine Allergy Unknown Unknown Verified 12/15/21 18:29 sulfadiazine Allergy Unknown Unknown Verified 12/15/21 18:29 Assessment & Plan Assessment & Plan (1) Psychosis: Status: Acute Code(s): F29 - Unspecified psychosis not due to a substance or known physiological condition Plan The patient is an elderly female, recently , with poor social support, no help from family or a with and says, admitted into the hospital for psychotic symptoms elicited by paranoia against a major of [facility], failure to thrive and hoarding. Please see the HPI of the admission note for further details. Currently on Section 7 and 8 since the patient wants to leave and does not have any insight into her condition. Plan 1. Continue with Zyprexa as per court order. 2. Guardianship paperwork since the patient cannot take informed decisions. 3. The oncologist already review her case due to the masses of her both lungs but the patient refused to have the procedure of biopsy. 4. MOLST for Sunday. I spent __20____ minutes with the patient and/or on the patient floor today, greater than?50% of which was spent counseling/coordinating care. Reason for contiued inpatient stay Substantial Risk for: inability to function, rapid decompensation and med/psych decompensation
[2022-01-20 18:00] VITALS: PULSE 75; RESP 20; TEMP 36.9; O2SAT 96
[2022-01-20] MEDS: OLANZapine 2.5 MG TABLET PO (20:42)
[2022-01-21 08:30] VITALS: BP 175/81; PULSE 70; RESP 14; TEMP 36.8; O2SAT 95
--- NOTE | 2022-01-21 15:26 | P.PNPSI_ITS ---
Subjective Subjective Date of Service: 01/21/22 Reason For Visit: Mood Interim History: Patient pleasant with loan underwriter, friendly asking questions. She is sleeping and eating well and taking her medications except refuses Aricept. Patient said that she is overall good except does not want to be on the unit anymore but she says she knows she has to discuss it with regular weekday doctor Mental Status Exam Mental Status Exam Patient Appearance: Well Grooomed Patient Orientation: Person and Situation (somewhat) Level of Consciousness: Awake Patient Behavior: Cooperative Mood Description: Cheerful Affect Description: Cheerful Patient Cognition Impaired: Yes Ability to Follow Directions: Fair Speech Pattern: Clear Memory Description: Intact Hallucinations: None Delusions: Not Present Thought Process: Goal Oriented Thought Content: positive for Obsessional Thoughts Judgement and Insight: impaired Diagnostics Vital Signs (24Hr): Vital Signs - 24 hr 01/20/22 18:00 01/21/22 08:30 Temperature 98.5 F 98.3 F Pulse Rate 75 70 Respiratory Rate 20 14 Blood Pressure 175/81 H Pulse Oximetry 96 95 Oxygen Delivery Method Room Air Room Air BMI result Body Mass Index 26.6 Labs Results: 01/20/22 08:00 01/20/22 08:00 Labs: Laboratory Results - last 48 hr 01/20/22 01/20/22 01/20/22 08:00 08:00 08:00 WBC 6.6 RBC 4.29 Hgb 13.3 Hct 40.0 MCV 93.2 MCH 31.0 MCHC 33.3 RDW 14.3 Plt Count 212 MPV 10.0 Immature Gran % (Auto) 0.6 H Neut % (Auto) 53.5 Lymph % (Auto) 26.9 [place] % (Auto) 12.5 H Eos % (Auto) 5.6 H Baso % (Auto) 0.9 Lymph # (Auto) 1.8 [place] # (Auto) 0.8 Eos # (Auto) 0.4 Baso # (Auto) 0.1 Abs Immat Gran (auto) 0.04 H Absolute Neuts (auto) 3.5 Absolute Nucleated RBC 0.000 Nucleated RBC % (auto) 0.0 Sodium 141 Potassium 4.1 Chloride 103 Carbon Dioxide 24 Anion Gap 18 BUN 22 H Creatinine 1.14 Estim Creat Clear Calc 39.4 Estimated GFR 45 Random Glucose 191 H Estimat Average Glucose 217 Hemoglobin A1c % 9.2 Calcium 9.1 Total Bilirubin 0.5 Direct Bilirubin 0.2 AST 13 ALT 16 Alkaline Phosphatase 87 D Total Protein 6.4 L Albumin 3.7 TSH 1.59 Imaging Radiology Impressions: ITS Impressions Chest CT 01/10/22 15:11 IMPRESSION: Bilateral small pulmonary nodules, left greater than right. Biapical pleural and parenchymal scarring. 1.1 x 1.4 cm heterogeneous or semisolid right apical nodule, question related to pleural and parenchymal scarring. 1.5 cm partially calcified left thyroid nodule. Based on patient age in size, this does not meet criteria for follow-up. Moderate coronary artery calcification. Fleischner guidelines were followed. Medications Medications Current Medications Acetaminophen (Acetaminophen 325 Mg Tablet) 650 mg PO Q6H PRN PRN Reason: Headache/Pain Mild Scale (1-3) Al Hydroxide/Mg Hydroxide (Magnesium Hydrox/Alum Hydrox 30 Ml Oral.Susp) 30 ml PO Q6H PRN PRN Reason: Heartburn/Nausea Donepezil HCl (Donepezil Hcl 5 Mg Tablet) 5 mg PO BEDTIME TIMOTEO Last Admin: 01/20/22 20:43 Dose: Not Given Hydroxyzine HCl (Hydroxyzine Hcl 25 Mg Tablet) 25 mg PO Q6H PRN PRN Reason: Anxiety Ketoconazole (Ketoconazole 2 % Shampoo 120 Ml Btl) 1 appl TOPICAL MoTh TIMOTEO; Protocol Last Admin: 01/19/22 14:56 Dose: Not Given Magnesium Hydroxide (Milk Of Magnesia 30 Ml Oral.Susp) 30 ml PO DAILY PRN PRN Reason: Constipation Olanzapine (Olanzapine 10 Mg Vial) 5 mg IM BEDTIME PRN PRN Reason: refusal of PO Last Admin: 01/15/22 21:26 Dose: 5 mg Olanzapine (Olanzapine 2.5 Mg Tablet) 2.5 mg PO BEDTIME TIMOTEO Last Admin: 01/20/22 20:42 Dose: 2.5 mg Trazodone HCl (Trazodone Hcl 50 Mg Tablet) 50 mg PO BEDTIME PRN PRN Reason: Insomnia Last Admin: 01/19/22 20:34 Dose: 50 mg Allergies Allergies Allergy/AdvReac Type Severity Reaction Status Date / Time codeine Allergy Unknown Unknown Verified 12/15/21 18:29 sulfadiazine Allergy Unknown Unknown Verified 12/15/21 18:29 Assessment & Plan Assessment & Plan (1) Psychosis: Status: Acute Code(s): F29 - Unspecified psychosis not due to a substance or known physiological condition Plan The patient is an elderly female, recently , with poor social support, no help from family or a with and says, admitted into the hospital for psychotic symptoms elicited by paranoia against a major of was [place], failure to thrive and hoarding. Please see the HPI of the admission note for further details. Currently on Section 7 and 8 since the patient wants to leave and does not have any insight into her condition. 01/21 continue current treatment plan Plan 1. Continue with Zyprexa as per court order. 2. Guardianship paperwork since the patient cannot take informed decisions. 3. The oncologist already review her case due to the masses of her both lungs but the patient refused to have the procedure of biopsy. 4. MOLST for Sunday. I spent minutes with the patient and/or on the patient floor today, greater than?50% of which was spent counseling/coordinating care. Patient educated on: diagnosis Informed Consent: further education needed Reason for contiued inpatient stay Substantial Risk for: med/psych decompensation
[2022-01-21 18:00] VITALS: BP 176/89; PULSE 76; RESP 18; TEMP 37; O2SAT 96
[2022-01-21] MEDS: OLANZapine 2.5 MG TABLET PO (20:13)
--- NOTE | 2022-01-22 19:12 | P.PNPSI_ITS ---
Subjective Subjective Date of Service: 01/22/22 Reason For Visit: Mood Interim History: Late entry note for patient seen on 01/22 Patient friendly with screenplay writer however irritable with staff. Patient seems to fluctuate between friendly and irritable Mental Status Exam Mental Status Exam Patient Appearance: Well Grooomed Patient Orientation: Person and Situation (somewhat) Level of Consciousness: Awake Patient Behavior: Cooperative Mood Description: Calm and Angry Affect Description: Cheerful and Angry Patient Cognition Impaired: Yes Ability to Follow Directions: Poor Speech Pattern: Clear Memory Description: Intact Hallucinations: None Delusions: Not Present Thought Process: Goal Oriented Thought Content: positive for Obsessional Thoughts Judgement and Insight: impaired Diagnostics Vital Signs (24Hr): Vital Signs - 24 hr 01/22/22 19:30 Temperature 98.6 F Pulse Rate 105 H Respiratory Rate 18 Blood Pressure 168/84 H Pulse Oximetry 95 Oxygen Delivery Method Room Air BMI result Body Mass Index 26.6 Labs Results: 01/20/22 08:00 01/20/22 08:00 Imaging Radiology Impressions: ITS Impressions Chest CT 01/10/22 15:11 IMPRESSION: Bilateral small pulmonary nodules, left greater than right. Biapical pleural and parenchymal scarring. 1.1 x 1.4 cm heterogeneous or semisolid right apical nodule, question related to pleural and parenchymal scarring. 1.5 cm partially calcified left thyroid nodule. Based on patient age in size, this does not meet criteria for follow-up. Moderate coronary artery calcification. Fleischner guidelines were followed. Medications Medications Current Medications Acetaminophen (Acetaminophen 325 Mg Tablet) 650 mg PO Q6H PRN PRN Reason: Headache/Pain Mild Scale (1-3) Al Hydroxide/Mg Hydroxide (Magnesium Hydrox/Alum Hydrox 30 Ml Oral.Susp) 30 ml PO Q6H PRN PRN Reason: Heartburn/Nausea Donepezil HCl (Donepezil Hcl 5 Mg Tablet) 5 mg PO BEDTIME TIMOTEO Last Admin: 01/22/22 20:19 Dose: Not Given Hydroxyzine HCl (Hydroxyzine Hcl 25 Mg Tablet) 25 mg PO Q6H PRN PRN Reason: Anxiety Ketoconazole (Ketoconazole 2 % Shampoo 120 Ml Btl) 1 appl TOPICAL MoTh TIMOTEO; Protocol Last Admin: 01/19/22 14:56 Dose: Not Given Magnesium Hydroxide (Milk Of Magnesia 30 Ml Oral.Susp) 30 ml PO DAILY PRN PRN Reason: Constipation Olanzapine (Olanzapine 10 Mg Vial) 5 mg IM BEDTIME PRN PRN Reason: refusal of PO Last Admin: 01/15/22 21:26 Dose: 5 mg Olanzapine (Olanzapine 2.5 Mg Tablet) 2.5 mg PO BEDTIME TIMOTEO Last Admin: 01/22/22 20:19 Dose: 2.5 mg Trazodone HCl (Trazodone Hcl 50 Mg Tablet) 50 mg PO BEDTIME PRN PRN Reason: Insomnia Last Admin: 01/19/22 20:34 Dose: 50 mg Allergies Allergies Allergy/AdvReac Type Severity Reaction Status Date / Time codeine Allergy Unknown Unknown Verified 12/15/21 18:29 sulfadiazine Allergy Unknown Unknown Verified 12/15/21 18:29 Assessment & Plan Assessment & Plan (1) Psychosis: Status: Acute Code(s): F29 - Unspecified psychosis not due to a substance or known physiological condition Plan The patient is an elderly female, recently , with poor social support, no help from family or a with and says, admitted into the hospital for psychotic symptoms elicited by paranoia against a major of [facility], failure to thrive and hoarding. Please see the HPI of the admission note for further details. Currently on Section 7 and 8 since the patient wants to leave and does not have any insight into her condition. 01/21 continue current treatment plan 01/22 continue current treatment plan Plan 1. Continue with Zyprexa as per court order. 2. Guardianship paperwork since the patient cannot take informed decisions. 3. The oncologist already review her case due to the masses of her both lungs but the patient refused to have the procedure of biopsy. 4. MOLST for Sunday. I spent minutes with the patient and/or on the patient floor today, greater than?50% of which was spent counseling/coordinating care. Reason for contiued inpatient stay Substantial Risk for: rapid decompensation
[2022-01-22 19:30] VITALS: BP 168/84; PULSE 105; RESP 18; TEMP 37; O2SAT 95
[2022-01-22] MEDS: OLANZapine 2.5 MG TABLET PO (20:19)
--- NOTE | 2022-01-23 12:03 | P.PNPSI_ITS ---
Subjective Subjective Date of Service: 01/23/22 Reason For Visit: Mood Subjective Notes: Conditional Voluntary Interim History: The nursing staff reported the patient was verbally abusive acting staff in the morning. She slept well but she had been refusing Aricept all this lady's. She has been quiet, internally preoccupied and confused at times. The occupational therapist did a [place] test and she scored 19/30, her Colin test was 4.0 on admission. the certified social workers in health care reported that she has a hearing for housing court next Sunday. On interview, the patient denies new symptoms, she wants to be discharged, worried about her home, she cannot remember our previous conversations, we have been having the same conversation for the last days. Mental Status Exam Mental Status Exam Patient Appearance: Appropriate Patient Orientation: Person and Situation Level of Consciousness: Appropriate Patient Behavior: Guarded and Passive Mood Description: Withdrawn Affect Description: Constricted Patient Cognition Impaired: Yes Ability to Follow Directions: Fair Speech Pattern: Clear Hallucinations: None Delusions: Paranoid Ideation Thought Process: Illogical and Distracted Thought Content: positive for [place] Judgement: Fair Diagnostics Vital Signs (24Hr): Vital Signs - 24 hr 01/22/22 19:30 Temperature 98.6 F Pulse Rate 105 H Respiratory Rate 18 Blood Pressure 168/84 H Pulse Oximetry 95 Oxygen Delivery Method Room Air BMI result Body Mass Index 26.6 Labs Results: 01/20/22 08:00 01/20/22 08:00 Imaging Radiology Impressions: ITS Impressions Chest CT 01/10/22 15:11 IMPRESSION: Bilateral small pulmonary nodules, left greater than right. Biapical pleural and parenchymal scarring. 1.1 x 1.4 cm heterogeneous or semisolid right apical nodule, question related to pleural and parenchymal scarring. 1.5 cm partially calcified left thyroid nodule. Based on patient age in size, this does not meet criteria for follow-up. Moderate coronary artery calcification. Fleischner guidelines were followed. Medications Medications Current Medications Acetaminophen (Acetaminophen 325 Mg Tablet) 650 mg PO Q6H PRN PRN Reason: Headache/Pain Mild Scale (1-3) Al Hydroxide/Mg Hydroxide (Magnesium Hydrox/Alum Hydrox 30 Ml Oral.Susp) 30 ml PO Q6H PRN PRN Reason: Heartburn/Nausea Donepezil HCl (Donepezil Hcl 5 Mg Tablet) 5 mg PO BEDTIME TIMOTEO Last Admin: 01/22/22 20:19 Dose: Not Given Hydroxyzine HCl (Hydroxyzine Hcl 25 Mg Tablet) 25 mg PO Q6H PRN PRN Reason: Anxiety Ketoconazole (Ketoconazole 2 % Shampoo 120 Ml Btl) 1 appl TOPICAL MoTh TIMOTEO; Protocol Last Admin: 01/19/22 14:56 Dose: Not Given Magnesium Hydroxide (Milk Of Magnesia 30 Ml Oral.Susp) 30 ml PO DAILY PRN PRN Reason: Constipation Olanzapine (Olanzapine 10 Mg Vial) 5 mg IM BEDTIME PRN PRN Reason: refusal of PO Last Admin: 01/15/22 21:26 Dose: 5 mg Olanzapine (Olanzapine 2.5 Mg Tablet) 2.5 mg PO BEDTIME TIMOTEO Last Admin: 01/22/22 20:19 Dose: 2.5 mg Trazodone HCl (Trazodone Hcl 50 Mg Tablet) 50 mg PO BEDTIME PRN PRN Reason: Insomnia Last Admin: 01/19/22 20:34 Dose: 50 mg Allergies Allergies Allergy/AdvReac Type Severity Reaction Status Date / Time codeine Allergy Unknown Unknown Verified 12/15/21 18:29 sulfadiazine Allergy Unknown Unknown Verified 12/15/21 18:29 Assessment & Plan Assessment & Plan (1) Psychosis: Status: Acute Code(s): F29 - Unspecified psychosis not due to a substance or known physiological condition Plan The patient is an elderly female, recently , with poor social support, no help from family or a with and says, admitted into the hospital for psychotic symptoms elicited by paranoia against a major of [facility], failure to thrive and hoarding. Please see the HPI of the admission note for further details. Currently on Section 7 and 8 since the patient wants to leave and does not have any insight into her condition. Plan 1. Continue with Zyprexa as per court order. 2. Guardianship paperwork since the patient cannot take informed decisions. 3. The oncologist already review her case due to the masses of her both lungs but the patient refused to have the procedure of biopsy. 4. MOLST for Sunday. We had a conversation last week and she said that she was going to think regarding her options. I spent ___20___ minutes with the patient and/or on the patient floor today, greater than?50% of which was spent counseling/coordinating care. Reason for contiued inpatient stay Substantial Risk for: inability to function, rapid decompensation and med/psych decompensation
[2022-01-23] MEDS: OLANZapine 2.5 MG TABLET PO (21:36)
[2022-01-23] MEDS: traZODone HCL 50 MG TABLET PO (21:40)
[2022-01-24 06:00] VITALS: BP 187/84; PULSE 79; RESP 17; TEMP 36.4; O2SAT 96
--- NOTE | 2022-01-24 16:29 | HO.PSYCHPN ---
Subjective Subjective Date of Service: 01/24/22 Reason For Visit: Mood Subjective Notes: Conditional Voluntary Interim History: The nursing staff reported the patient was compliant with her Zyprexa last night. Her Freedom was done and she scored 19/30. On interview the patient showed me a long letter asking me for discharge. Apparently there is a new court hearing. She will have a hearing for court House next Sunday. On interview, the patient was anxious, she cannot remember the conversation before I assure her that we will have her best interest. Mental Status Exam Mental Status Exam Patient Appearance: Well Grooomed Patient Orientation: Person and Situation Level of Consciousness: Awake Patient Behavior: Guarded Mood Description: Constricted Affect Description: Labile Patient Cognition Impaired: Yes Ability to Follow Directions: Good Speech Pattern: Clear Hallucinations: None Delusions: Paranoid Ideation Thought Process: Illogical and Distracted Thought Content: positive for [place], positive for Obsessional Thoughts and positive for Poverty of Content Judgement: Fair Diagnostics Vital Signs (24Hr): Vital Signs - 24 hr 01/24/22 06:00 Temperature 97.5 F Pulse Rate 79 Respiratory Rate 17 Blood Pressure 187/84 H Pulse Oximetry 96 Oxygen Delivery Method Room Air BMI result Body Mass Index 26.6 Labs Results: 01/20/22 08:00 01/20/22 08:00 Imaging Radiology Impressions: ITS Impressions Chest CT 01/10/22 15:11 IMPRESSION: Bilateral small pulmonary nodules, left greater than right. Biapical pleural and parenchymal scarring. 1.1 x 1.4 cm heterogeneous or semisolid right apical nodule, question related to pleural and parenchymal scarring. 1.5 cm partially calcified left thyroid nodule. Based on patient age in size, this does not meet criteria for follow-up. Moderate coronary artery calcification. Fleischner guidelines were followed. Medications Medications Current Medications Acetaminophen (Acetaminophen 325 Mg Tablet) 650 mg PO Q6H PRN PRN Reason: Headache/Pain Mild Scale (1-3) Al Hydroxide/Mg Hydroxide (Magnesium Hydrox/Alum Hydrox 30 Ml Oral.Susp) 30 ml PO Q6H PRN PRN Reason: Heartburn/Nausea Donepezil HCl (Donepezil Hcl 5 Mg Tablet) 5 mg PO BEDTIME TIMOTEO Last Admin: 01/23/22 21:59 Dose: Not Given Hydroxyzine HCl (Hydroxyzine Hcl 25 Mg Tablet) 25 mg PO Q6H PRN PRN Reason: Anxiety Ketoconazole (Ketoconazole 2 % Shampoo 120 Ml Btl) 1 appl TOPICAL MoTh TIMOTEO; Protocol Last Admin: 01/23/22 14:10 Dose: Not Given Magnesium Hydroxide (Milk Of Magnesia 30 Ml Oral.Susp) 30 ml PO DAILY PRN PRN Reason: Constipation Olanzapine (Olanzapine 10 Mg Vial) 5 mg IM BEDTIME PRN PRN Reason: refusal of PO Last Admin: 01/15/22 21:26 Dose: 5 mg Olanzapine (Olanzapine 2.5 Mg Tablet) 2.5 mg PO BEDTIME TIMOTEO Last Admin: 01/23/22 21:36 Dose: 2.5 mg Trazodone HCl (Trazodone Hcl 50 Mg Tablet) 50 mg PO BEDTIME PRN PRN Reason: Insomnia Last Admin: 01/23/22 21:40 Dose: 50 mg Allergies Allergies Allergy/AdvReac Type Severity Reaction Status Date / Time codeine Allergy Unknown Unknown Verified 12/15/21 18:29 sulfadiazine Allergy Unknown Unknown Verified 12/15/21 18:29 Assessment & Plan Assessment & Plan (1) Psychosis: Status: Acute Code(s): F29 - Unspecified psychosis not due to a substance or known physiological condition Plan The patient is an elderly female, recently , with poor social support, no help from family or a with and says, admitted into the hospital for psychotic symptoms elicited by paranoia against a major of [facility], failure to thrive and hoarding. Please see the HPI of the admission note for further details. Currently on Section 7 and 8 since the patient wants to leave and does not have any insight into her condition. Plan 1. Continue with Zyprexa as per court order. 2. Guardianship paperwork since the patient cannot take informed decisions. 3. The oncologist already review her case due to the masses of her both lungs but the patient refused to have the procedure of biopsy. 4. MOLST will be discussed again and try to get it sign I spent ___20___ minutes with the patient and/or on the patient floor today, greater than?50% of which was spent counseling/coordinating care. Reason for contiued inpatient stay Substantial Risk for: inability to function, rapid decompensation and med/psych decompensation
[2022-01-24 19:00] VITALS: BP 168/79; PULSE 68; RESP 18; TEMP 37.1; O2SAT 98
[2022-01-24] MEDS: traZODone HCL 50 MG TABLET PO (22:05)
[2022-01-24] MEDS: OLANZapine 10 MG VIAL 5 MG IM (22:11)
[2022-01-25 09:00] VITALS: BP 161/75; PULSE 71; RESP 16; TEMP 36.8; O2SAT 100
--- NOTE | 2022-01-25 14:04 | P.PNPSI_ITS ---
Subjective Subjective Date of Service: 01/25/22 Reason For Visit: Mood Subjective Notes: Section 7 and Section 8 Interim History: The nursing staff reported the patient refused her Zyprexa last night and she receive an IM. Overall, the staff has noticed that she has less outbursts. The social media marketing analyst called for the guardianship for her house in hearing. On interview the patient could not remember about the discussion that we have at about yesterday, she gave me a letter that he was delusional in content. She could not remember that she was in court for section 7 and 8. Very poor short term memory. Mental Status Exam Mental Status Exam Patient Appearance: Appropriate Patient Orientation: Person and Situation Level of Consciousness: Awake Patient Behavior: Guarded and Suspicious Mood Description: Withdrawn Affect Description: Labile Patient Cognition Impaired: Yes Ability to Follow Directions: Good Speech Pattern: Clear Hallucinations: None Delusions: Paranoid Ideation Thought Process: Illogical Thought Content: positive for [place], positive for [place] and positive for Poverty of Content Judgement: Poor Diagnostics Vital Signs (24Hr): Vital Signs - 24 hr 01/24/22 19:00 01/25/22 09:00 Temperature 98.7 F 98.2 F Pulse Rate 68 71 Respiratory Rate 18 16 Blood Pressure 168/79 H 161/75 H Pulse Oximetry 98 100 Oxygen Delivery Method Room Air Room Air BMI result Body Mass Index 26.6 Labs Results: 01/20/22 08:00 01/20/22 08:00 Imaging Radiology Impressions: ITS Impressions Chest CT 01/10/22 15:11 IMPRESSION: Bilateral small pulmonary nodules, left greater than right. Biapical pleural and parenchymal scarring. 1.1 x 1.4 cm heterogeneous or semisolid right apical nodule, question related to pleural and parenchymal scarring. 1.5 cm partially calcified left thyroid nodule. Based on patient age in size, this does not meet criteria for follow-up. Moderate coronary artery calcification. Fleischner guidelines were followed. Medications Medications Current Medications Acetaminophen (Acetaminophen 325 Mg Tablet) 650 mg PO Q6H PRN PRN Reason: Headache/Pain Mild Scale (1-3) Al Hydroxide/Mg Hydroxide (Magnesium Hydrox/Alum Hydrox 30 Ml Oral.Susp) 30 ml PO Q6H PRN PRN Reason: Heartburn/Nausea Donepezil HCl (Donepezil Hcl 5 Mg Tablet) 5 mg PO BEDTIME TIMOTEO Last Admin: 01/24/22 22:23 Dose: Not Given Hydroxyzine HCl (Hydroxyzine Hcl 25 Mg Tablet) 25 mg PO Q6H PRN PRN Reason: Anxiety Ketoconazole (Ketoconazole 2 % Shampoo 120 Ml Btl) 1 appl TOPICAL MoTh TIMOTEO; Protocol Last Admin: 01/23/22 14:10 Dose: Not Given Magnesium Hydroxide (Milk Of Magnesia 30 Ml Oral.Susp) 30 ml PO DAILY PRN PRN Reason: Constipation Olanzapine (Olanzapine 10 Mg Vial) 5 mg IM BEDTIME PRN PRN Reason: refusal of PO Last Admin: 01/24/22 22:11 Dose: 5 mg Olanzapine (Olanzapine 2.5 Mg Tablet) 2.5 mg PO BEDTIME TIMOTEO Last Admin: 01/24/22 22:23 Dose: Not Given Trazodone HCl (Trazodone Hcl 50 Mg Tablet) 50 mg PO BEDTIME PRN PRN Reason: Insomnia Last Admin: 01/24/22 22:05 Dose: 50 mg Allergies Allergies Allergy/AdvReac Type Severity Reaction Status Date / Time codeine Allergy Unknown Unknown Verified 12/15/21 18:29 sulfadiazine Allergy Unknown Unknown Verified 12/15/21 18:29 Assessment & Plan Assessment & Plan (1) Psychosis: Status: Acute Code(s): F29 - Unspecified psychosis not due to a substance or known physiological condition Plan The patient is an elderly female, recently , with poor social support, no help from family or a with and says, admitted into the hospital for psychotic symptoms elicited by paranoia against a major of [facility], failure to thrive and hoarding. Please see the HPI of the admission note for further details. Currently on Section 7 and 8 since the patient wants to leave and does not have any insight into her condition. Plan 1. Continue with Zyprexa as per court order. 2. Guardianship paperwork since the patient cannot take informed decisions. 3. The oncologist already review her case due to the masses of her both lungs but the patient refused to have the procedure of biopsy. 4. MOLST will be discussed again and try to get it sign I spent ___20___ minutes with the patient and/or on the patient floor today, greater than?50% of which was spent counseling/coordinating care. Reason for contiued inpatient stay Substantial Risk for: inability to function, rapid decompensation and med/psych decompensation
[2022-01-25] MEDS: OLANZapine 2.5 MG TABLET PO (19:56)
[2022-01-25 20:23] VITALS: BP 183/103; PULSE 71; TEMP 36.7; O2SAT 98
[2022-01-25] MEDS: traZODone HCL 50 MG TABLET PO (20:29)
[2022-01-26 07:00] VITALS: BMI 26.4
--- NOTE | 2022-01-26 10:56 | P.PNPSI_ITS ---
Subjective Subjective Date of Service: 01/26/22 Reason For Visit: Mood Subjective Notes: Section 7 and Section 8 Interim History: The nursing staff reported the patient was compliant with her Zyprexa last night but she always refused her Aricept. She was incontinent of urine. The social psychologist reported that she has reached the district attorney and apparently her house in hearing will be continued since there was no guardianship appointed at this point. On interview, the patient reports that she wants to go home that she needs to fixed her house and she is still paranoid against the major of [facility]. Again, she cannot remember that we had a long conversation about that. Mental Status Exam Mental Status Exam Patient Appearance: Appropriate Patient Orientation: Person and Situation Level of Consciousness: Awake Patient Behavior: Cooperative and Passive Mood Description: Withdrawn Affect Description: Labile Patient Cognition Impaired: Yes Ability to Follow Directions: Fair Speech Pattern: Clear Hallucinations: None Delusions: Paranoid Ideation Thought Process: Distracted Thought Content: positive for [place], positive for Obsessional Thoughts and positive for Poverty of Content Judgement: Poor Diagnostics Vital Signs (24Hr): Vital Signs - 24 hr 01/25/22 20:23 Temperature 98.0 F Pulse Rate 71 Blood Pressure 183/103 H Pulse Oximetry 98 Oxygen Delivery Method Room Air BMI result Body Mass Index 26.6 Labs Results: 01/20/22 08:00 01/20/22 08:00 Imaging Radiology Impressions: ITS Impressions Chest CT 01/10/22 15:11 IMPRESSION: Bilateral small pulmonary nodules, left greater than right. Biapical pleural and parenchymal scarring. 1.1 x 1.4 cm heterogeneous or semisolid right apical nodule, question related to pleural and parenchymal scarring. 1.5 cm partially calcified left thyroid nodule. Based on patient age in size, this does not meet criteria for follow-up. Moderate coronary artery calcification. Fleischner guidelines were followed. Medications Medications Current Medications Acetaminophen (Acetaminophen 325 Mg Tablet) 650 mg PO Q6H PRN PRN Reason: Headache/Pain Mild Scale (1-3) Al Hydroxide/Mg Hydroxide (Magnesium Hydrox/Alum Hydrox 30 Ml Oral.Susp) 30 ml PO Q6H PRN PRN Reason: Heartburn/Nausea Donepezil HCl (Donepezil Hcl 5 Mg Tablet) 5 mg PO BEDTIME TIMOTEO Last Admin: 01/25/22 20:23 Dose: Not Given Hydroxyzine HCl (Hydroxyzine Hcl 25 Mg Tablet) 25 mg PO Q6H PRN PRN Reason: Anxiety Ketoconazole (Ketoconazole 2 % Shampoo 120 Ml Btl) 1 appl TOPICAL MoTh TIMOTEO; Pro tocol Last Admin: 01/23/22 14:10 Dose: Not Given Magnesium Hydroxide (Milk Of Magnesia 30 Ml Oral.Susp) 30 ml PO DAILY PRN PRN Reason: Constipation Olanzapine (Olanzapine 10 Mg Vial) 5 mg IM BEDTIME PRN PRN Reason: refusal of PO Last Admin: 01/24/22 22:11 Dose: 5 mg Olanzapine (Olanzapine 2.5 Mg Tablet) 2.5 mg PO BEDTIME TIMOTEO Last Admin: 01/25/22 19:56 Dose: 2.5 mg Trazodone HCl (Trazodone Hcl 50 Mg Tablet) 50 mg PO BEDTIME PRN PRN Reason: Insomnia Last Admin: 01/25/22 20:29 Dose: 50 mg Allergies Allergies Allergy/AdvReac Type Severity Reaction Status Date / Time codeine Allergy Unknown Unknown Verified 12/15/21 18:29 sulfadiazine Allergy Unknown Unknown Verified 12/15/21 18:29 Assessment & Plan Assessment & Plan (1) Psychosis: Status: Acute Code(s): F29 - Unspecified psychosis not due to a substance or known physiological condition Plan The patient is an elderly female, recently , with poor social support, no help from family or a with and says, admitted into the hospital for psychotic symptoms elicited by paranoia against a major of [facility], failure to thrive and hoarding. Please see the HPI of the admission note for further details. Currently on Section 7 and 8 since the patient wants to leave and does not have any insight into her condition. Plan 1. Continue with Zyprexa as per court order. 2. Guardianship paperwork since the patient cannot take informed decisions. 3. The oncologist already review her case due to the masses of her both lungs but the patient refused to have the procedure of biopsy. 4. MOLST will be discussed again and try to get it sign 5. We need a guardian so we can nose or eyes all the medical treatment that she needs at this moment so far, she has refused any treatment for the nodules on h er chest. I spent __20____ minutes with the patient and/or on the patient floor today, greater than?50% of which was spent counseling/coordinating care. Reason for contiued inpatient stay Substantial Risk for: inability to function, rapid decompensation and med/psych decompensation
[2022-01-26 19:00] VITALS: BP 174/75; PULSE 70; RESP 17; TEMP 36.8; O2SAT 96
[2022-01-26] MEDS: traZODone HCL 50 MG TABLET PO (21:05)
[2022-01-26] MEDS: OLANZapine 2.5 MG TABLET PO (21:05)
[2022-01-27 06:00] VITALS: BP 189/91; PULSE 66; RESP 16; O2SAT 98
--- NOTE | 2022-01-27 15:05 | HO.PSYCHPN ---
Subjective Subjective Date of Service: 01/27/22 Reason For Visit: Mood Subjective Notes: Section 7 and Section 8 Interim History: The nursing staff reported the patient took her Zyprexa last night. The social sciences chair reported that she needs glasses, [facility]. Last and that she was there she was arrested and scored it out by the police since she assaulted staff over there. The house in court was been pushed away since there were no guardian. On interview the patient remains confused, unable to remember the conversation that we have before. No changes in her mental status. Still delusional against the major of was [place]. Mental Status Exam Mental Status Exam Patient Appearance: Disheveled Patient Orientation: Person and Situation Level of Consciousness: Awake Patient Behavior: Cooperative Mood Description: Withdrawn Affect Description: Constricted Patient Cognition Impaired: Yes Ability to Follow Directions: Fair Speech Pattern: Clear Hallucinations: None Delusions: Paranoid Ideation Thought Process: Illogical and Distracted Thought Content: positive for [place], positive for Obsessional Thoughts and positive for Poverty of Content Judgement: Poor Diagnostics Vital Signs (24Hr): Vital Signs - 24 hr 01/26/22 19:00 01/27/22 06:00 Temperature 98.2 F Pulse Rate 70 66 Respiratory Rate 17 16 Blood Pressure 174/75 H 189/91 H Pulse Oximetry 96 98 Oxygen Delivery Method Room Air Room Air BMI result Body Mass Index 26.4 Labs Results: 01/20/22 08:00 01/20/22 08:00 Imaging Radiology Impressions: ITS Impressions Chest CT 01/10/22 15:11 IMPRESSION: Bilateral small pulmonary nodules, left greater than right. Biapical pleural and parenchymal scarring. 1.1 x 1.4 cm heterogeneous or semisolid right apical nodule, question related to pleural and parenchymal scarring. 1.5 cm partially calcified left thyroid nodule. Based on patient age in size, this does not meet criteria for follow-up. Moderate coronary artery calcification. Fleischner guidelines were followed. Medications Medications Current Medications Acetaminophen (Acetaminophen 325 Mg Tablet) 650 mg PO Q6H PRN PRN Reason: Headache/Pain Mild Scale (1-3) Al Hydroxide/Mg Hydroxide (Magnesium Hydrox/Alum Hydrox 30 Ml Oral.Susp) 30 ml PO Q6H PRN PRN Reason: Heartburn/Nausea Donepezil HCl (Donepezil Hcl 5 Mg Tablet) 5 mg PO BEDTIME TIMOTEO Last Admin: 01/26/22 21:00 Dose: Not Given Hydroxyzine HCl (Hydroxyzine Hcl 25 Mg Tablet) 25 mg PO Q6H PRN PRN Reason: Anxiety Ketoconazole (Ketoconazole 2 % Shampoo 120 Ml Btl) 1 appl TOPICAL MoTh TIMOTEO; Protocol Last Admin: 01/26/22 14:34 Dose: Not Given Magnesium Hydroxide (Milk Of Magnesia 30 Ml Oral.Susp) 30 ml PO DAILY PRN PRN Reason: Constipation Olanzapine (Olanzapine 10 Mg Vial) 5 mg IM BEDTIME PRN PRN Reason: refusal of PO Last Admin: 01/24/22 22:11 Dose: 5 mg Olanzapine (Olanzapine 2.5 Mg Tablet) 2.5 mg PO BEDTIME TIMOTEO Last Admin: 01/26/22 21:05 Dose: 2.5 mg Trazodone HCl (Trazodone Hcl 50 Mg Tablet) 50 mg PO BEDTIME PRN PRN Reason: Insomnia Last Admin: 01/26/22 21:05 Dose: 50 mg Allergies Allergies Allergy/AdvReac Type Severity Reaction Status Date / Time codeine Allergy Unknown Unknown Verified 12/15/21 18:29 sulfadiazine Allergy Unknown Unknown Verified 12/15/21 18:29 Assessment & Plan Assessment & Plan (1) Psychosis: Status: Acute Code(s): F29 - Unspecified psychosis not due to a substance or known physiological condition Plan The patient is an elderly female, recently , with poor social support, no help from family or a with and says, admitted into the hospital for psychotic symptoms elicited by paranoia against a major of [facility], failure to thrive and hoarding. Please see the HPI of the admission note for further details. Currently on Section 7 and 8 since the patient wants to leave and does not have any insight into her condition. Plan 1. Continue with Zyprexa as per court order. 2. Guardianship paperwork since the patient cannot take informed decisions. 3. The oncologist already review her case due to the masses of her both lungs but the patient refused to have the procedure of biopsy. 4. MOLST will be discussed again and try to get it sign 5. We need a guardian so we can offer all the medical treatment that she needs at this moment so far, she has refused any treatment or diagnostic procedures for the nodules on her chest. I spent ___20___ minutes with the patient and/or on the patient floor today, greater than?50% of which was spent counseling/coordinating care. Reason for contiued inpatient stay Substantial Risk for: inability to function, rapid decompensation and med/psych decompensation
[2022-01-27 18:00] VITALS: BP 161/84; PULSE 65; RESP 18; TEMP 36.7; O2SAT 96
[2022-01-27] MEDS: OLANZapine 2.5 MG TABLET PO (20:20)
[2022-01-27] MEDS: traZODone HCL 50 MG TABLET PO (20:20)
--- NOTE | 2022-01-28 08:28 | HO.PSYCHPN ---
Subjective Subjective Date of Service: 01/28/22 Reason For Visit: Mood Subjective Notes: Section 8 Interim History: Patient was seen and discussed in rounds today. Records and plans were reviewed. She has been fairly compliant but refusing care and hygiene has been poor. Eating and sleeping adequately. No reports of side effects. No dangerous behaviors. No changes were made today Review of Systems Review of Systems Yes Unobtainable due to mental status Constitutional: Reports no additional constitutional complaints Eyes: Reports no additional eye complaints Reports system reviewed and no additional complaints, except as documented Cardiovascular: Reports no additional cardiovascular complaints Respiratory: Reports no additional respiratory complaints Gastrointestinal: Reports no additional gastrointestinal complaints Musculoskeletal: Reports no additional musculoskeletal complaints Skin/Breast: Reports system reviewed and no additional complaints, except as docu Reports system reviewed and no additional complaints, except as documented Psychiatric: Reports no additional psychiatric complaints Endocrine: Reports no additional endocrine complaints Hematologic/Lymphatic: Reports no additional hematologic/lymphatic complaints Allergic/Immunologic: Reports no additional allergic/immunologic complaints Diagnostics Vital Signs (24Hr): Vital Signs - 24 hr 01/27/22 18:00 Temperature 98.1 F Pulse Rate 65 Respiratory Rate 18 Blood Pressure 161/84 H Pulse Oximetry 96 Oxygen Delivery Method Room Air BMI result Body Mass Index 26.4 Labs Results: 01/20/22 08:00 01/20/22 08:00 Imaging Radiology Impressions: ITS Impressions Chest CT 01/10/22 15:11 IMPRESSION: Bilateral small pulmonary nodules, left greater than right. Biapical pleural and parenchymal scarring. 1.1 x 1.4 cm heterogeneous or semisolid right apical nodule, question related to pleural and parenchymal scarring. 1.5 cm partially calcified left thyroid nodule. Based on patient age in size, this does not meet criteria for follow-up. Moderate coronary artery calcification. Fleischner guidelines were followed. Medications Medications Current Medications Acetaminophen (Acetaminophen 325 Mg Tablet) 650 mg PO Q6H PRN PRN Reason: Headache/Pain Mild Scale (1-3) Al Hydroxide/Mg Hydroxide (Magnesium Hydrox/Alum Hydrox 30 Ml Oral.Susp) 30 ml PO Q6H PRN PRN Reason: Heartburn/Nausea Donepezil HCl (Donepezil Hcl 5 Mg Tablet) 5 mg PO BEDTIME TIMOTEO Last Admin: 01/27/22 22:18 Dose: Not Given Hydroxyzine HCl (Hydroxyzine Hcl 25 Mg Tablet) 25 mg PO Q6H PRN PRN Reason: Anxiety Ketoconazole (Ketoconazole 2 % Shampoo 120 Ml Btl) 1 appl TOPICAL MoTh TIMOTEO; Protocol Last Admin: 01/26/22 14:34 Dose: Not Given Magnesium Hydroxide (Milk Of Magnesia 30 Ml Oral.Susp) 30 ml PO DAILY PRN PRN Reason: Constipation Olanzapine (Olanzapine 10 Mg Vial) 5 mg IM BEDTIME PRN PRN Reason: refusal of PO Last Admin: 01/24/22 22:11 Dose: 5 mg Olanzapine (Olanzapine 2.5 Mg Tablet) 2.5 mg PO BEDTIME TIMOTEO Last Admin: 01/27/22 20:20 Dose: 2.5 mg Trazodone HCl (Trazodone Hcl 50 Mg Tablet) 50 mg PO BEDTIME PRN PRN Reason: Insomnia Last Admin: 01/27/22 20:20 Dose: 50 mg Allergies Allergies Allergy/AdvReac Type Severity Reaction Status Date / Time codeine Allergy Unknown Unknown Verified 12/15/21 18:29 sulfadiazine Allergy Unknown Unknown Verified 12/15/21 18:29 Assessment & Plan Assessment & Plan (1) Psychosis: Status: Acute Code(s): F29 - Unspecified psychosis not due to a substance or known physiological condition Plan The patient is an elderly female, recently , with poor social support, no help from family or a with and says, admitted into the hospital for psychotic symptoms elicited by paranoia against a major of [facility], failure to thrive and hoarding. Please see the HPI of the admission note for further details. Currently on Section 7 and 8 since the patient wants to leave and does not have any insight into her condition. Plan 1. Continue with Zyprexa as per court order. 2. Guardianship paperwork since the patient cannot take informed decisions. 3. The oncologist already review her case due to the masses of her both lungs but the patient refused to have the procedure of biopsy. 4. MOLST will be discussed again and try to get it sign 5. We need a guardian so we can offer all the medical treatment that she needs at this moment so far, she has refused any treatment or diagnostic procedures for the nodules on her chest. 01/28: Continue current regimen and plans I spent minutes with the patient and/or on the patient floor today, greater than?50% of which was spent counseling/coordinating care. Reason for contiued inpatient stay Substantial Risk for: inability to function
[2022-01-28 18:00] VITALS: BP 187/86; PULSE 72; RESP 16; TEMP 36.6; O2SAT 97
[2022-01-28] MEDS: OLANZapine 2.5 MG TABLET PO (21:08)
[2022-01-28] MEDS: traZODone HCL 50 MG TABLET PO (21:08)
--- NOTE | 2022-01-29 08:47 | P.PNPSI_ITS ---
Subjective Subjective Date of Service: 01/29/22 Reason For Visit: Mood Subjective Notes: Section 8 Interim History: Patient was seen and discussed in rounds today. Records and plans were reviewed. She continues to be doing a little better. She is med compliant. No complaints or side effects. She continues to be very perseverative about some issues and is concerned about her house in which the has not been turned on. She does have lower extremity edema and some redness and slight heat on her right lower leg. This will be monitored and if necessary hospitalist consult will be requested to rule out cellulitis Medication Compliance: Yes Side effects from medications: No Review of Systems Review of Systems Lower extremity edema Yes Unobtainable due to mental status Constitutional: Reports no additional constitutional complaints Eyes: Reports no additional eye complaints Reports system reviewed and no additional complaints, except as documented Cardiovascular: Reports no additional cardiovascular complaints Respiratory: Reports no additional respiratory complaints Gastrointestinal: Reports no additional gastrointestinal complaints Musculoskeletal: Reports no additional musculoskeletal complaints Skin/Breast: Reports system reviewed and no additional complaints, except as docu Reports system reviewed and no additional complaints, except as documented Psychiatric: Reports no additional psychiatric complaints Endocrine: Reports no additional endocrine complaints Hematologic/Lymphatic: Reports no additional hematologic/lymphatic complaints Allergic/Immunologic: Reports no additional allergic/immunologic complaints Mental Status Exam Mental Status Exam Patient Appearance: Disheveled Patient Orientation: Person and Situation Level of Consciousness: Awake Patient Behavior: Cooperative Mood Description: Withdrawn Affect Description: Constricted Patient Cognition Impaired: Yes Ability to Follow Directions: Fair Speech Pattern: Clear Hallucinations: None Delusions: Paranoid Ideation Thought Process: Illogical and Distracted Thought Content: positive for [place], positive for Obsessional Thoughts and positive for Poverty of Content Judgement: Poor Diagnostics Vital Signs (24Hr): Vital Signs - 24 hr 01/28/22 18:00 Temperature 98 F Pulse Rate 72 Respiratory Rate 16 Blood Pressure 187/86 H Pulse Oximetry 97 Oxygen Delivery Method Room Air BMI result Body Mass Index 26.4 Labs Results: 01/20/22 08:00 01/20/22 08:00 Imaging Radiology Impressions: ITS Impressions Chest CT 01/10/22 15:11 IMPRESSION: Bilateral small pulmonary nodules, left greater than right. Biapical pleural and parenchymal scarring. 1.1 x 1.4 cm heterogeneous or semisolid right apical nodule, question related to pleural and parenchymal scarring. 1.5 cm partially calcified left thyroid nodule. Based on patient age in size, this does not meet criteria for follow-up. Moderate coronary artery calcification. Fleischner guidelines were followed. Medications Medications Current Medications Acetaminophen (Acetaminophen 325 Mg Tablet) 650 mg PO Q6H PRN PRN Reason: Headache/Pain Mild Scale (1-3) Al Hydroxide/Mg Hydroxide (Magnesium Hydrox/Alum Hydrox 30 Ml Oral.Susp) 30 ml PO Q6H PRN PRN Reason: Heartburn/Nausea Donepezil HCl (Donepezil Hcl 5 Mg Tablet) 5 mg PO BEDTIME TIMOTEO Last Admin: 01/29/22 00:21 Dose: Not Given Hydroxyzine HCl (Hydroxyzine Hcl 25 Mg Tablet) 25 mg PO Q6H PRN PRN Reason: Anxiety Ketoconazole (Ketoconazole 2 % Shampoo 120 Ml Btl) 1 appl TOPICAL MoTh TIMOTEO; Protocol Last Admin: 01/26/22 14:34 Dose: Not Given Magnesium Hydroxide (Milk Of Magnesia 30 Ml Oral.Susp) 30 ml PO DAILY PRN PRN Reason: Constipation Olanzapine (Olanzapine 10 Mg Vial) 5 mg IM BEDTIME PRN PRN Reason: refusal of PO Last Admin: 01/24/22 22:11 Dose: 5 mg Olanzapine (Olanzapine 2.5 Mg Tablet) 2.5 mg PO BEDTIME TIMOTEO Last Admin: 01/28/22 21:08 Dose: 2.5 mg Trazodone HCl (Trazodone Hcl 50 Mg Tablet) 50 mg PO BEDTIME PRN PRN Reason: Insomnia Last Admin: 01/28/22 21:08 Dose: 50 mg Allergies Allergies Allergy/AdvReac Type Severity Reaction Status Date / Time codeine Allergy Unknown Unknown Verified 12/15/21 18:29 sulfadiazine Allergy Unknown Unknown Verified 12/15/21 18:29 Assessment & Plan Assessment & Plan (1) Psychosis: Status: Acute Code(s): F29 - Unspecified psychosis not due to a substance or known physiological condition Plan The patient is an elderly female, recently , with poor social support, no help from family or a with and says, admitted into the hospital for psychotic symptoms elicited by paranoia against a major of was [place], failure to thrive and hoarding. Please see the HPI of the admission note for further details. Currently on Section 7 and 8 since the patient wants to leave and does not have any insight into her condition. Plan 1. Continue with Zyprexa as per court order. 2. Guardianship paperwork since the patient cannot take informed decisions. 3. The oncologist already review her case due to the masses of her both lungs but the patient refused to have the procedure of biopsy. 4. MOLST will be discussed again and try to get it sign 5. We need a guardian so we can offer all the medical treatment that she needs at this moment so far, she has refused any treatment or diagnostic procedures for the nodules on her chest. 01/28: Continue current regimen and plans 01/29: Continue current regimen and plans. Consider hospitalist consult if the lower leg starts looking worse I spent minutes with the patient and/or on the patient floor today, greater than?50% of which was spent counseling/coordinating care. Reason for contiued inpatient stay Substantial Risk for: inability to function
[2022-01-29 18:00] VITALS: BP 202/83; PULSE 68; RESP 16; TEMP 36.8; O2SAT 98
[2022-01-29 20:49] VITALS: BP 195/91
[2022-01-29] MEDS: OLANZapine 2.5 MG TABLET PO (21:06)
[2022-01-29] MEDS: cloNIDine HCL 0.2 MG TABLET PO (21:06)
[2022-01-29] MEDS: traZODone HCL 50 MG TABLET PO (21:07)
[2022-01-29 22:16] VITALS: BP 164/80
--- NOTE | 2022-01-29 22:16 | PC.NURSE ---
dr nuñez contacted about 1. htn 2. b/p 202/83 3. rechecked in 30 min 195/91 4. pt asymptomatic 5. interacting with peers 6. pt is on no antihypertensives- plan a. clonidine 0.2 mg po stat-pts b/p was rechecked 1 hour after clonidine administration 164/80(manual)
[2022-01-30 06:00] VITALS: BP 193/84; PULSE 60; RESP 16; TEMP 35.9; O2SAT 96
--- NOTE | 2022-01-30 15:21 | HO.PSYCHPN ---
Subjective Subjective Date of Service: 01/30/22 Reason For Visit: Mood Subjective Notes: Conditional Voluntary Interim History: The nursing staff reported the patient remains very forgetful but now she tolerates the presence of the staff more and she is even willing to improve her a hygiene. The social worker health services still working on placement. We will waiting for the guardianship and conservatorship. On interview the patient cannot remember the we have discussed before about her several issues with her memory, her house and others. Mental Status Exam Mental Status Exam Patient Appearance: Well Grooomed Patient Orientation: Person and Situation Level of Consciousness: Appropriate Patient Behavior: Passive Mood Description: Depressed Affect Description: Constricted Patient Cognition Impaired: Yes Ability to Follow Directions: Fair Speech Pattern: Clear Hallucinations: None Delusions: Not Present Thought Process: Distracted Thought Content: positive for [place] Judgement: Fair Diagnostics Vital Signs (24Hr): Vital Signs - 24 hr 01/29/22 18:00 01/29/22 20:49 01/29/22 22:16 Temperature 98.2 F Pulse Rate 68 Respiratory Rate 16 Blood Pressure 202/83 H 195/91 H 164/80 H Pulse Oximetry 98 Oxygen Delivery Method Room Air BMI result Body Mass Index 26.4 Labs Results: 01/20/22 08:00 01/20/22 08:00 Imaging Radiology Impressions: ITS Impressions Chest CT 01/10/22 15:11 IMPRESSION: Bilateral small pulmonary nodules, left greater than right. Biapical pleural and parenchymal scarring. 1.1 x 1.4 cm heterogeneous or semisolid right apical nodule, question related to pleural and parenchymal scarring. 1.5 cm partially calcified left thyroid nodule. Based on patient age in size, this does not meet criteria for follow-up. Moderate coronary artery calcification. Fleischner guidelines were followed. Medications Medications Current Medications Acetaminophen (Acetaminophen 325 Mg Tablet) 650 mg PO Q6H PRN PRN Reason: Headache/Pain Mild Scale (1-3) Al Hydroxide/Mg Hydroxide (Magnesium Hydrox/Alum Hydrox 30 Ml Oral.Susp) 30 ml PO Q6H PRN PRN Reason: Heartburn/Nausea Donepezil HCl (Donepezil Hcl 5 Mg Tablet) 5 mg PO BEDTIME TIMOTEO Last Admin: 01/29/22 22:01 Dose: Not Given Hydroxyzine HCl (Hydroxyzine Hcl 25 Mg Tablet) 25 mg PO Q6H PRN PRN Reason: Anxiety Ketoconazole (Ketoconazole 2 % Shampoo 120 Ml Btl) 1 appl TOPICAL MoTh TIMOTEO; Protocol Last Admin: 01/30/22 14:39 Dose: Not Given Magnesium Hydroxide (Milk Of Magnesia 30 Ml Oral.Susp) 30 ml PO DAILY PRN PRN Reason: Constipation Olanzapine (Olanzapine 10 Mg Vial) 5 mg IM BEDTIME PRN PRN Reason: refusal of PO Last Admin: 01/24/22 22:11 Dose: 5 mg Olanzapine (Olanzapine 2.5 Mg Tablet) 2.5 mg PO BEDTIME TIMOTEO Last Admin: 01/29/22 21:06 Dose: 2.5 mg Trazodone HCl (Trazodone Hcl 50 Mg Tablet) 50 mg PO BEDTIME PRN PRN Reason: Insomnia Last Admin: 01/29/22 21:07 Dose: 50 mg Allergies Allergies Allergy/AdvReac Type Severity Reaction Status Date / Time codeine Allergy Unknown Unknown Verified 12/15/21 18:29 sulfadiazine Allergy Unknown Unknown Verified 12/15/21 18:29 Assessment & Plan Assessment & Plan (1) Psychosis: Status: Acute Code(s): F29 - Unspecified psychosis not due to a substance or known physiological condition Plan The patient is an elderly female, recently , with poor social support, no help from family or a with and says, admitted into the hospital for psychotic symptoms elicited by paranoia against a major of was [place], failure to thrive and hoarding. Please see the HPI of the admission note for further details. Currently on Section 7 and 8 since the patient wants to leave and does not have any insight into her condition. Plan 1. Continue with Zyprexa as per court order. 2. Guardianship paperwork since the patient cannot take informed decisions. 3. The oncologist already review her case due to the masses of her both lungs but the patient refused to have the procedure of biopsy. 4. MOLST will be discussed again and try to get it sign 5. We need a guardian so we can offer all the medical treatment that she needs at this moment so far, she has refused any treatment or diagnostic procedures for the nodules on her chest. I spent __20____ minutes with the patient and/or on the patient floor today, greater than?50% of which was spent counseling/coordinating care. Reason for contiued inpatient stay Substantial Risk for: inability to function, rapid decompensation and med/psych decompensation
[2022-01-30 18:00] VITALS: BP 187/73; PULSE 67; RESP 18; TEMP 36.7; O2SAT 97
[2022-01-30] MEDS: traZODone HCL 50 MG TABLET PO (20:41)
[2022-01-30] MEDS: OLANZapine 2.5 MG TABLET PO (20:43)
[2022-01-31 06:00] VITALS: BP 142/70; PULSE 61; RESP 12; TEMP 36.7; O2SAT 99
--- NOTE | 2022-01-31 13:58 | HO.PSYCHPN ---
Subjective Subjective Date of Service: 01/31/22 Reason For Visit: Mood Subjective Notes: Section 7 and Section 8 Interim History: The nursing staff reported that yesterday the patient to her p.o. Zyprexa after a lot of encouragement. The web content & social media manager reported that a relative showed up and apparently she sticks acute her of her will. We will contact our hearing impaired teacher years and few read out a relation and a half. Apparently this cousin is going to see the house. The patient asked about treatment for his cancer. I contacted our oncologist Dr. An and she stated that she needs the biopsy before starting any treatment. On interview the patient remains confused, unable to remember the conversation of yesterday, confused and dysphoric at times. Mental Status Exam Mental Status Exam Patient Appearance: Appropriate Patient Orientation: Person and Situation Level of Consciousness: Awake Patient Behavior: Guarded and Passive Mood Description: Withdrawn Affect Description: Constricted Patient Cognition Impaired: Yes Ability to Follow Directions: Fair Speech Pattern: Clear Hallucinations: None Delusions: Paranoid Ideation Thought Process: Illogical, Distracted and Slowed Thinking Thought Content: positive for [place]um[place] Judgement: Poor Diagnostics Vital Signs (24Hr): Vital Signs - 24 hr 01/30/22 18:00 01/31/22 06:00 Temperature 98.1 F 98.1 F Pulse Rate 67 61 Respiratory Rate 18 12 Blood Pressure 187/73 H 142/70 H Pulse Oximetry 97 99 Oxygen Delivery Method Room Air Room Air BMI result Body Mass Index 26.4 Labs Results: 01/20/22 08:00 01/20/22 08:00 Imaging Radiology Impressions: ITS Impressions Chest CT 01/10/22 15:11 IMPRESSION: Bilateral small pulmonary nodules, left greater than right. Biapical pleural and parenchymal scarring. 1.1 x 1.4 cm heterogeneous or semisolid right apical nodule, question related to pleural and parenchymal scarring. 1.5 cm partially calcified left thyroid nodule. Based on patient age in size, this does not meet criteria for follow-up. Moderate coronary artery calcification. Fleischner guidelines were followed. Medications Medications Current Medications Acetaminophen (Acetaminophen 325 Mg Tablet) 650 mg PO Q6H PRN PRN Reason: Headache/Pain Mild Scale (1-3) Al Hydroxide/Mg Hydroxide (Magnesium Hydrox/Alum Hydrox 30 Ml Oral.Susp) 30 ml PO Q6H PRN PRN Reason: Heartburn/Nausea Donepezil HCl (Donepezil Hcl 5 Mg Tablet) 5 mg PO BEDTIME TIMOTEO Last Admin: 01/30/22 20:35 Dose: Not Given Hydroxyzine HCl (Hydroxyzine Hcl 25 Mg Tablet) 25 mg PO Q6H PRN PRN Reason: Anxiety Ketoconazole (Ketoconazole 2 % Shampoo 120 Ml Btl) 1 appl TOPICAL MoTh TIMOTEO; Protocol Last Admin: 01/30/22 14:39 Dose: Not Given Magnesium Hydroxide (Milk Of Magnesia 30 Ml Oral.Susp) 30 ml PO DAILY PRN PRN Reason: Constipation Olanzapine (Olanzapine 10 Mg Vial) 5 mg IM BEDTIME PRN PRN Reason: refusal of PO Last Admin: 01/24/22 22:11 Dose: 5 mg Olanzapine (Olanzapine 2.5 Mg Tablet) 2.5 mg PO BEDTIME TIMOTEO Last Admin: 01/30/22 20:43 Dose: 2.5 mg Trazodone HCl (Trazodone Hcl 50 Mg Tablet) 50 mg PO BEDTIME PRN PRN Reason: Insomnia Last Admin: 01/30/22 20:41 Dose: 50 mg Allergies Allergies Allergy/AdvReac Type Severity Reaction Status Date / Time codeine Allergy Unknown Unknown Verified 12/15/21 18:29 sulfadiazine Allergy Unknown Unknown Verified 12/15/21 18:29 Assessment & Plan Assessment & Plan (1) Psychosis: Status: Acute Code(s): F29 - Unspecified psychosis not due to a substance or known physiological condition Plan The patient is an elderly female, recently , with poor social support, no help from family or a with and says, admitted into the hospital for psychotic symptoms elicited by paranoia against a major of [facility], failure to thrive and hoarding. Please see the HPI of the admission note for further details. Currently on Section 7 and 8 since the patient wants to leave and does not have any insight into her condition. Plan 1. Continue with Zyprexa as per court order. 2. Guardianship paperwork since the patient cannot take informed decisions. 3. The oncologist already review her case due to the masses of her both lungs but the patient refused to have the procedure of biopsy. 4. MOLST will be discussed again and try to get it sign. Apparently the patient does not have capacity to take informed decisions regarding her MOLST. 5. We need a guardian so we can offer all the medical treatment that she needs at this moment so far, she has refused any treatment or diagnostic procedures for the nodules on her chest. I spent ___20___ minutes with the patient and/or on the patient floor today, greater than?50% of which was spent counseling/coordinating care. Reason for contiued inpatient stay Substantial Risk for: inability to function, rapid decompensation and med/psych decompensation
[2022-01-31 18:00] VITALS: BP 177/74; PULSE 69; RESP 16; TEMP 36.8; O2SAT 96
[2022-01-31] MEDS: traZODone HCL 50 MG TABLET PO (21:07)
[2022-01-31] MEDS: OLANZapine 2.5 MG TABLET PO (21:07)
[2022-02-01 09:55] VITALS: BP 174/71; PULSE 76; RESP 16; TEMP 36.8; O2SAT 97
--- NOTE | 2022-02-01 16:26 | HO.PSYCHPN ---
Subjective Subjective Date of Service: 02/01/22 Reason For Visit: Mood Subjective Notes: Section 7 and Section 8 Interim History: The nursing staff reported the patient had been compliant with treatment with a lot of encouragement. She has been preoccupied writing letters. The social media marketer reported that she has a court date this Sunday for temporary guardianship and conservatorship. Her blood pressure has been slightly high so we will start hydrochlorothiazide to target that. On interview the patient was very upset with the staff since she wanted envelopes. Again, she was unable to remember the conversation of days before, or insight into her limitations. Mental Status Exam Mental Status Exam Patient Appearance: Appropriate Patient Orientation: Person and Situation Level of Consciousness: Awake Patient Behavior: Guarded and Passive Mood Description: Withdrawn Affect Description: Constricted Patient Cognition Impaired: Yes Ability to Follow Directions: Fair Speech Pattern: Clear Hallucinations: None Delusions: Paranoid Ideation Thought Process: Illogical and Evasive Thought Content: positive for [place], positive for [place]um[place] and positive for Poverty of Content Judgement: Poor Diagnostics Vital Signs (24Hr): Vital Signs - 24 hr 01/31/22 18:00 02/01/22 09:55 Temperature 98.2 F 98.3 F Pulse Rate 69 76 Respiratory Rate 16 16 Blood Pressure 177/74 H 174/71 H Pulse Oximetry 96 97 Oxygen Delivery Method Room Air Room Air BMI result Body Mass Index 26.4 Labs Results: 01/20/22 08:00 01/20/22 08:00 Imaging Radiology Impressions: ITS Impressions Chest CT 01/10/22 15:11 IMPRESSION: Bilateral small pulmonary nodules, left greater than right. Biapical pleural and parenchymal scarring. 1.1 x 1.4 cm heterogeneous or semisolid right apical nodule, question related to pleural and parenchymal scarring. 1.5 cm partially calcified left thyroid nodule. Based on patient age in size, this does not meet criteria for follow-up. Moderate coronary artery calcification. Fleischner guidelines were followed. Medications Medications Current Medications Acetaminophen (Acetaminophen 325 Mg Tablet) 650 mg PO Q6H PRN PRN Reason: Headache/Pain Mild Scale (1-3) Al Hydroxide/Mg Hydroxide (Magnesium Hydrox/Alum Hydrox 30 Ml Oral.Susp) 30 ml PO Q6H PRN PRN Reason: Heartburn/Nausea Donepezil HCl (Donepezil Hcl 5 Mg Tablet) 5 mg PO BEDTIME TIMOTEO Last Admin: 01/31/22 22:06 Dose: Not Given Hydroxyzine HCl (Hydroxyzine Hcl 25 Mg Tablet) 25 mg PO Q6H PRN PRN Reason: Anxiety Ketoconazole (Ketoconazole 2 % Shampoo 120 Ml Btl) 1 appl TOPICAL MoTh TIMOTEO; Protocol Last Admin: 01/30/22 14:39 Dose: Not Given Magnesium Hydroxide (Milk Of Magnesia 30 Ml Oral.Susp) 30 ml PO DAILY PRN PRN Reason: Constipation Olanzapine (Olanzapine 10 Mg Vial) 5 mg IM BEDTIME PRN PRN Reason: refusal of PO Last Admin: 01/24/22 22:11 Dose: 5 mg Olanzapine (Olanzapine 2.5 Mg Tablet) 2.5 mg PO BEDTIME TIMOTEO Last Admin: 01/31/22 21:07 Dose: 2.5 mg Trazodone HCl (Trazodone Hcl 50 Mg Tablet) 50 mg PO BEDTIME PRN PRN Reason: Insomnia Last Admin: 01/31/22 21:07 Dose: 50 mg Allergies Allergies Allergy/AdvReac Type Severity Reaction Status Date / Time codeine Allergy Unknown Unknown Verified 12/15/21 18:29 sulfadiazine Allergy Unknown Unknown Verified 12/15/21 18:29 Assessment & Plan Assessment & Plan (1) Psychosis: Status: Acute Code(s): F29 - Unspecified psychosis not due to a substance or known physiological condition Plan The patient is an elderly female, recently , with poor social support, no help from family or a with and says, admitted into the hospital for psychotic symptoms elicited by paranoia against a major of [facility], failure to thrive and hoarding. Please see the HPI of the admission note for further details. Currently on Section 7 and 8 since the patient wants to leave and does not have any insight into her condition. Plan 1. Continue with Zyprexa as per court order. 2. Guardianship paperwork since the patient cannot take informed decisions. 3. The oncologist already review her case due to the masses of her both lungs but the patient refused to have the procedure of biopsy. 4. MOLST will be discussed again and try to get it sign. Apparently the patient does not have capacity to take informed decisions regarding her MOLST. 5. We need a guardian so we can offer all the medical treatment that she needs at this moment so far, she has refused any treatment or diagnostic procedures for the nodules on her chest. I spent __20____ minutes with the patient and/or on the patient floor today, greater than?50% of which was spent counseling/coordinating care. Reason for contiued inpatient stay Substantial Risk for: inability to function, rapid decompensation and med/psych decompensation
[2022-02-01 18:00] VITALS: BP 159/80; PULSE 78; RESP 14; TEMP 37.4; O2SAT 92
[2022-02-01 20:38] VITALS: TEMP 37.2
[2022-02-01] MEDS: OLANZapine 2.5 MG TABLET PO (21:07)
[2022-02-01] MEDS: traZODone HCL 50 MG TABLET PO (21:11)
[2022-02-02 06:00] VITALS: BP 122/72; PULSE 77; RESP 17; TEMP 36.3; O2SAT 94
--- NOTE | 2022-02-02 10:01 | P.PNPSI_ITS ---
Subjective Subjective Date of Service: 02/02/22 Reason For Visit: Mood Subjective Notes: Section 7 and Section 8 Interim History: The nursing staff reported the patient had been compliant with treatment with a lot of encouragement. She has been preoccupied writing letters. Pt pleasant when seen paranoid concerns regarding mayor. Mental Status Exam Mental Status Exam Patient Appearance: Appropriate Patient Orientation: Person and Situation Level of Consciousness: Awake Patient Behavior: Guarded and Cooperative Mood Description: Calm, Appropriate and Apprehensive Affect Description: Constricted Patient Cognition Impaired: Yes Ability to Follow Directions: Fair Speech Pattern: Clear and Perseverating (regarding paranoid concerns ) Hallucinations: None Delusions: Paranoid Ideation Thought Process: Illogical and Evasive Thought Content: positive for [place], positive for [place]um[place] and positive for Poverty of Content Judgement: Poor Diagnostics Vital Signs (24Hr): Vital Signs - 24 hr 02/02/22 18:00 Temperature 97.9 F Pulse Rate 77 Respiratory Rate 16 Blood Pressure 162/88 H Pulse Oximetry 96 Oxygen Delivery Method Room Air BMI result Body Mass Index 26.4 Labs Results: 01/20/22 08:00 01/20/22 08:00 Imaging Radiology Impressions: ITS Impressions Chest CT 01/10/22 15:11 IMPRESSION: Bilateral small pulmonary nodules, left greater than right. Biapical pleural and parenchymal scarring. 1.1 x 1.4 cm heterogeneous or semisolid right apical nodule, question related to pleural and parenchymal scarring. 1.5 cm partially calcified left thyroid nodule. Based on patient age in size, this does not meet criteria for follow-up. Moderate coronary artery calcification. Fleischner guidelines were followed. Medications Medications Current Medications Acetaminophen (Acetaminophen 325 Mg Tablet) 650 mg PO Q6H PRN PRN Reason: Headache/Pain Mild Scale (1-3) Al Hydroxide/Mg Hydroxide (Magnesium Hydrox/Alum Hydrox 30 Ml Oral.Susp) 30 ml PO Q6H PRN PRN Reason: Heartburn/Nausea Donepezil HCl (Donepezil Hcl 5 Mg Tablet) 5 mg PO BEDTIME TIMOTEO Last Admin: 02/02/22 21:55 Dose: Not Given Hydrochlorothiazide (Hydrochlorothiazide 12.5 Mg Tablet) 12.5 mg PO DAILY TIMOTEO; Protocol Hydroxyzine HCl (Hydroxyzine Hcl 25 Mg Tablet) 25 mg PO Q6H PRN PRN Reason: Anxiety Ketoconazole (Ketoconazole 2 % Shampoo 120 Ml Btl) 1 appl TOPICAL MoTh TIMOTEO; Protocol Last Admin: 02/02/22 14:38 Dose: Not Given Magnesium Hydroxide (Milk Of Magnesia 30 Ml Oral.Susp) 30 ml PO DAILY PRN PRN Reason: Constipation Olanzapine (Olanzapine 10 Mg Vial) 5 mg IM BEDTIME PRN PRN Reason: refusal of PO Last Admin: 01/24/22 22:11 Dose: 5 mg Olanzapine (Olanzapine 2.5 Mg Tablet) 2.5 mg PO BEDTIME TIMOTEO Last Admin: 02/02/22 20:17 Dose: 2.5 mg Trazodone HCl (Trazodone Hcl 50 Mg Tablet) 50 mg PO BEDTIME PRN PRN Reason: Insomnia Last Admin: 02/02/22 20:17 Dose: 50 mg Allergies Allergies Allergy/AdvReac Type Severity Reaction Status Date / Time codeine Allergy Unknown Unknown Verified 12/15/21 18:29 sulfadiazine Allergy Unknown Unknown Verified 12/15/21 18:29 Assessment & Plan Assessment & Plan (1) Psychosis: Status: Acute Code(s): F29 - Unspecified psychosis not due to a substance or known physiological condition Plan The patient is an elderly female, recently , with poor social support, no help from family or a with and says, admitted into the hospital for psychotic symptoms elicited by paranoia against a major of [facility], failure to thrive and hoarding. Please see the HPI of the admission note for further details. Currently on Section 7 and 8 since the patient wants to leave and does not have any insight into her condition. Plan 1. Continue with Zyprexa as per court order. 2. Guardianship paperwork since the patient cannot take informed decisions. 3. The oncologist already review her case due to the masses of her both lungs but the patient refused to have the procedure of biopsy. 4. MOLST will be discussed again and try to get it sign. Apparently the patient does not have capacity to take informed decisions regarding her MOLST. 5. We need a guardian so we can offer all the medical treatment that she needs at this moment so far, she has refused any treatment or diagnostic procedures for the nodules on her chest. 02/02/22 Pt was cooperative on low dose olanzapine limited judgement but improved mood crane affect I spent minutes with the patient and/or on the patient floor today, greater than?50% of which was spent counseling/coordinating care. Reason for contiued inpatient stay Substantial Risk for: rapid decompensation and med/psych decompensation
[2022-02-02 18:00] VITALS: BP 162/88; PULSE 77; RESP 16; TEMP 36.6; O2SAT 96
[2022-02-02] MEDS: traZODone HCL 50 MG TABLET PO (20:17)
[2022-02-02] MEDS: OLANZapine 2.5 MG TABLET PO (20:17)
[2022-02-03 06:00] VITALS: BP 187/81; PULSE 82; RESP 17; TEMP 35.9; O2SAT 94
--- NOTE | 2022-02-03 16:06 | HO.PSYCHPN ---
Subjective Subjective Date of Service: 02/03/22 Reason For Visit: Mood Subjective Notes: Conditional Voluntary Interim History: The nursing staff reported that she refused Aricept last night. Today we had the hearing about her guardianship and the travel registered nurse pacu decided to appoint a guardian. In the last days, a relative of her has been calling and apparently she has executor of the will of her . We will try to gather collateral information. On interview the patient remains confused, unable to remember previous conversations, his the 5th letter that she wrote to me. Asking for the same with no insight into her limitations Mental Status Exam Mental Status Exam Patient Appearance: Appropriate Patient Orientation: Person and Situation Level of Consciousness: Disoriented Patient Behavior: Guarded and Passive Mood Description: Withdrawn Affect Description: Constricted Patient Cognition Impaired: Yes Ability to Follow Directions: Fair Speech Pattern: Clear Hallucinations: None Delusions: Paranoid Ideation Thought Process: Distracted and Evasive Thought Content: positive for [place] and positive for Poverty of Content Judgement: Fair Diagnostics Vital Signs (24Hr): Vital Signs - 24 hr 02/02/22 18:00 02/03/22 06:00 Temperature 97.9 F 96.7 F L Pulse Rate 77 82 Respiratory Rate 16 17 Blood Pressure 162/88 H 187/81 H Pulse Oximetry 96 94 Oxygen Delivery Method Room Air Room Air BMI result Body Mass Index 26.4 Labs Results: 01/20/22 08:00 01/20/22 08:00 Imaging Radiology Impressions: ITS Impressions Chest CT 01/10/22 15:11 IMPRESSION: Bilateral small pulmonary nodules, left greater than right. Biapical pleural and parenchymal scarring. 1.1 x 1.4 cm heterogeneous or semisolid right apical nodule, question related to pleural and parenchymal scarring. 1.5 cm partially calcified left thyroid nodule. Based on patient age in size, this does not meet criteria for follow-up. Moderate coronary artery calcification. Fleischner guidelines were followed. Medications Medications Current Medications Acetaminophen (Acetaminophen 325 Mg Tablet) 650 mg PO Q6H PRN PRN Reason: Headache/Pain Mild Scale (1-3) Al Hydroxide/Mg Hydroxide (Magnesium Hydrox/Alum Hydrox 30 Ml Oral.Susp) 30 ml PO Q6H PRN PRN Reason: Heartburn/Nausea Donepezil HCl (Donepezil Hcl 5 Mg Tablet) 5 mg PO BEDTIME TIMOTEO Last Admin: 02/02/22 21:55 Dose: Not Given Hydrochlorothiazide (Hydrochlorothiazide 12.5 Mg Tablet) 12.5 mg PO DAILY TIMOTEO; Protocol Hydroxyzine HCl (Hydroxyzine Hcl 25 Mg Tablet) 25 mg PO Q6H PRN PRN Reason: Anxiety Ketoconazole (Ketoconazole 2 % Shampoo 120 Ml Btl) 1 appl TOPICAL MoTh TIMOTEO; Protocol Last Admin: 02/02/22 14:38 Dose: Not Given Magnesium Hydroxide (Milk Of Magnesia 30 Ml Oral.Susp) 30 ml PO DAILY PRN PRN Reason: Constipation Olanzapine (Olanzapine 10 Mg Vial) 5 mg IM BEDTIME PRN PRN Reason: refusal of PO Last Admin: 01/24/22 22:11 Dose: 5 mg Olanzapine (Olanzapine 2.5 Mg Tablet) 2.5 mg PO BEDTIME TIMOTEO Last Admin: 02/02/22 20:17 Dose: 2.5 mg Trazodone HCl (Trazodone Hcl 50 Mg Tablet) 50 mg PO BEDTIME PRN PRN Reason: Insomnia Last Admin: 02/02/22 20:17 Dose: 50 mg Allergies Allergies Allergy/AdvReac Type Severity Reaction Status Date / Time codeine Allergy Unknown Unknown Verified 12/15/21 18:29 sulfadiazine Allergy Unknown Unknown Verified 12/15/21 18:29 Assessment & Plan Assessment & Plan (1) Psychosis: Status: Acute Code(s): F29 - Unspecified psychosis not due to a substance or known physiological condition Plan The patient is an elderly female, recently , with poor social support, no help from family or a with and says, admitted into the hospital for psychotic symptoms elicited by paranoia against a major of [facility], failure to thrive and hoarding. Please see the HPI of the admission note for further details. Currently on Section 7 and 8 since the patient wants to leave and does not have any insight into her condition. Plan 1. Continue with Zyprexa as per court order. 2. Guardianship paperwork since the patient cannot take informed decisions. 3. The oncologist already review her case due to the masses of her both lungs but the patient refused to have the procedure of biopsy. 4. MOLST will be discussed again and try to get it sign. Apparently the patient does not have capacity to take informed decisions regarding her MOLST. 5. We need a guardian so we can offer all the medical treatment that she needs at this moment so far, she has refused any treatment or diagnostic procedures for the nodules on her chest. Today we had guardianship hearing. I spent ___20___ minutes with the patient and/or on the patient floor today, greater than?50% of which was spent counseling/coordinating care. Reason for contiued inpatient stay Substantial Risk for: inability to function, rapid decompensation and med/psych decompensation
[2022-02-03 18:00] VITALS: BP 172/82; PULSE 77; RESP 14; TEMP 36.9; O2SAT 94
[2022-02-03] MEDS: OLANZapine 2.5 MG TABLET PO (21:00)
[2022-02-03] MEDS: traZODone HCL 50 MG TABLET PO (21:00)
--- NOTE | 2022-02-04 00:47 | HO.PSYCHPN ---
Subjective Subjective Date of Service: 02/04/22 Reason For Visit: Mood Interim History: Discussed with team. Spoke with pt, says she is fine until you woke me up. Somewhat irritable, I cant fucking hear you and says I need to be discharged to go home. Pt is not recalling that she is on a section 7, 8. Says do I have to take those meds that make sleep all day? Does not understand her medications, says she feels very uncomfortable taking a medicine that affects your mind, I feel uncomfortable with behavioral health that affects your mind. Pt feels her meds are sedating, I dont want to sleep my life away. She likes the meals at the hospital. Upset that her roommate is waking her up. Medication Compliance: Yes Side effects from medications: No Attending Groups: No Review of Systems Acute medical concerns: No Medical Review of Systems: unchanged Mental Status Exam Mental Status Exam Narrative: Patient Appearance: Appropriate Patient Orientation: Person and Situation Level of Consciousness: Disoriented Patient Behavior: Guarded and Passive Mood Description: Withdrawn Affect Description: Constricted Patient Cognition Impaired: Yes Ability to Follow Directions: Fair Speech Pattern: Clear Hallucinations: None Delusions: Paranoid Ideation Thought Process: Distracted and Evasive Thought Content: positive for [place] and positive for Poverty of Content Judgement: Fair Diagnostics Vital Signs (24Hr): Vital Signs - 24 hr 02/03/22 06:00 02/03/22 18:00 Temperature 96.7 F L 98.4 F Pulse Rate 82 77 Respiratory Rate 17 14 Blood Pressure 187/81 H 172/82 H Pulse Oximetry 94 94 Oxygen Delivery Method Room Air Room Air BMI result Body Mass Index 26.4 Labs Results: 01/20/22 08:00 01/20/22 08:00 Imaging Radiology Impressions: ITS Impressions Chest CT 01/10/22 15:11 IMPRESSION: Bilateral small pulmonary nodules, left greater than right. Biapical pleural and parenchymal scarring. 1.1 x 1.4 cm heterogeneous or semisolid right apical nodule, question related to pleural and parenchymal scarring. 1.5 cm partially calcified left thyroid nodule. Based on patient age in size, this does not meet criteria for follow-up. Moderate coronary artery calcification. Fleischner guidelines were followed. Medications Medications Current Medications Acetaminophen (Acetaminophen 325 Mg Tablet) 650 mg PO Q6H PRN PRN Reason: Headache/Pain Mild Scale (1-3) Al Hydroxide/Mg Hydroxide (Magnesium Hydrox/Alum Hydrox 30 Ml Oral.Susp) 30 ml PO Q6H PRN PRN Reason: Heartburn/Nausea Donepezil HCl (Donepezil Hcl 5 Mg Tablet) 5 mg PO BEDTIME TIMOTEO Last Admin: 02/03/22 21:05 Dose: Not Given Hydrochlorothiazide (Hydrochlorothiazide 12.5 Mg Tablet) 12.5 mg PO DAILY TIMOTEO; Protocol Hydroxyzine HCl (Hydroxyzine Hcl 25 Mg Tablet) 25 mg PO Q6H PRN PRN Reason: Anxiety Ketoconazole (Ketoconazole 2 % Shampoo 120 Ml Btl) 1 appl TOPICAL MoTh TIMOTEO; Protocol Last Admin: 02/02/22 14:38 Dose: Not Given Magnesium Hydroxide (Milk Of Magnesia 30 Ml Oral.Susp) 30 ml PO DAILY PRN PRN Reason: Constipation Olanzapine (Olanzapine 10 Mg Vial) 5 mg IM BEDTIME PRN PRN Reason: refusal of PO Last Admin: 01/24/22 22:11 Dose: 5 mg Olanzapine (Olanzapine 2.5 Mg Tablet) 2.5 mg PO BEDTIME TIMOTEO Last Admin: 02/03/22 21:00 Dose: 2.5 mg Trazodone HCl (Trazodone Hcl 50 Mg Tablet) 50 mg PO BEDTIME PRN PRN Reason: Insomnia Last Admin: 02/03/22 21:00 Dose: 50 mg Allergies Allergies Allergy/AdvReac Type Severity Reaction Status Date / Time codeine Allergy Unknown Unknown Verified 12/15/21 18:29 sulfadiazine Allergy Unknown Unknown Verified 12/15/21 18:29 Assessment & Plan Assessment & Plan (1) Psychosis: Status: Acute Code(s): F29 - Unspecified psychosis not due to a substance or known physiological condition Plan The patient is an elderly female, recently , with poor social support, no help from family or a with and says, admitted into the hospital for psychotic symptoms elicited by paranoia against a major of [place], failure to thrive and hoarding. Please see the HPI of the admission note for further details. Currently on Section 7 and 8 since the patient wants to leave and does not have any insight into her condition. Plan 1. Continue with Zyprexa as per court order. 2. Guardianship paperwork since the patient cannot take informed decisions. 3. The oncologist already review her case due to the masses of her both lungs but the patient refused to have the procedure of biopsy. 4. MOLST will be discussed again and try to get it sign. Apparently the patient does not have capacity to take informed decisions regarding her MOLST. 5. We need a guardian so we can offer all the medical treatment that she needs at this moment so far, she has refused any treatment or diagnostic procedures for the nodules on her chest. Today we had guardianship hearing. I spent minutes with the patient and/or on the patient floor today, greater than?50% of which was spent counseling/coordinating care. Patient educated on: medication risk/benefits Reason for contiued inpatient stay Substantial Risk for: inability to function, rapid decompensation and med/psych decompensation
[2022-02-04] MEDS: hydroCHLOROthiazide 12.5 MG TABLET PO (10:17)
[2022-02-04 18:00] VITALS: BP 142/93; PULSE 73; RESP 20; TEMP 36.8; O2SAT 94
[2022-02-04] MEDS: traZODone HCL 50 MG TABLET PO (20:58)
--- NOTE | 2022-02-05 01:44 | HO.PSYCHPN ---
Subjective Subjective Date of Service: 02/05/22 Reason For Visit: Mood Interim History: Discussed with team. Pt is a section 8, refused zyprexa PO last night but did not receive her IM. Has her court date for permanent guardianship coming up. Still refuses aricept. Says she is doing fine, denies having questions or concerns as she says she has a letter for the director of social work. Medication Compliance: No Side effects from medications: No Attending Groups: No Review of Systems Acute medical concerns: No Medical Review of Systems: unchanged Mental Status Exam Mental Status Exam Narrative: Patient Appearance: Appropriate Patient Orientation: Person and Situation Level of Consciousness: Disoriented Patient Behavior: Guarded and Passive Mood Description: Withdrawn Affect Description: Constricted Patient Cognition Impaired: Yes Ability to Follow Directions: Fair Speech Pattern: Clear Hallucinations: None Delusions: Paranoid Ideation Thought Process: Distracted and Evasive Thought Content: positive for [place] and positive for Poverty of Content Judgement: Fair Diagnostics Vital Signs (24Hr): Vital Signs - 24 hr 02/04/22 18:00 Temperature 98.3 F Pulse Rate 73 Respiratory Rate 20 Blood Pressure 142/93 H Pulse Oximetry 94 Oxygen Delivery Method Room Air BMI result Body Mass Index 26.4 Labs Results: 01/20/22 08:00 01/20/22 08:00 Imaging Radiology Impressions: ITS Impressions Chest CT 01/10/22 15:11 IMPRESSION: Bilateral small pulmonary nodules, left greater than right. Biapical pleural and parenchymal scarring. 1.1 x 1.4 cm heterogeneous or semisolid right apical nodule, question related to pleural and parenchymal scarring. 1.5 cm partially calcified left thyroid nodule. Based on patient age in size, this does not meet criteria for follow-up. Moderate coronary artery calcification. Fleischner guidelines were followed. Medications Medications Current Medications Acetaminophen (Acetaminophen 325 Mg Tablet) 650 mg PO Q6H PRN PRN Reason: Headache/Pain Mild Scale (1-3) Al Hydroxide/Mg Hydroxide (Magnesium Hydrox/Alum Hydrox 30 Ml Oral.Susp) 30 ml PO Q6H PRN PRN Reason: Heartburn/Nausea Donepezil HCl (Donepezil Hcl 5 Mg Tablet) 5 mg PO BEDTIME TIMOTEO Last Admin: 02/04/22 21:09 Dose: Not Given Hydrochlorothiazide (Hydrochlorothiazide 12.5 Mg Tablet) 12.5 mg PO DAILY TIMOTEO; Protocol Last Admin: 02/04/22 10:17 Dose: 12.5 mg Hydroxyzine HCl (Hydroxyzine Hcl 25 Mg Tablet) 25 mg PO Q6H PRN PRN Reason: Anxiety Ketoconazole (Ketoconazole 2 % Shampoo 120 Ml Btl) 1 appl TOPICAL MoTh TIMOTEO; Protocol Last Admin: 02/02/22 14:38 Dose: Not Given Magnesium Hydroxide (Milk Of Magnesia 30 Ml Oral.Susp) 30 ml PO DAILY PRN PRN Reason: Constipation Olanzapine (Olanzapine 10 Mg Vial) 5 mg IM BEDTIME PRN PRN Reason: refusal of PO Last Admin: 01/24/22 22:11 Dose: 5 mg Olanzapine (Olanzapine 2.5 Mg Tablet) 2.5 mg PO BEDTIME TIMOTEO Last Admin: 02/04/22 21:09 Dose: Not Given Trazodone HCl (Trazodone Hcl 50 Mg Tablet) 50 mg PO BEDTIME PRN PRN Reason: Insomnia Last Admin: 02/04/22 20:58 Dose: 50 mg Allergies Allergies Allergy/AdvReac Type Severity Reaction Status Date / Time codeine Allergy Unknown Unknown Verified 12/15/21 18:29 sulfadiazine Allergy Unknown Unknown Verified 12/15/21 18:29 Assessment & Plan Assessment & Plan (1) Psychosis: Status: Acute Code(s): F29 - Unspecified psychosis not due to a substance or known physiological condition Plan The patient is an elderly female, recently , with poor social support, no help from family or a with and says, admitted into the hospital for psychotic symptoms elicited by paranoia against a major of [facility], failure to thrive and hoarding. Please see the HPI of the admission note for further details. Currently on Section 7 and 8 since the patient wants to leave and does not have any insight into her condition. Plan 1. Continue with Zyprexa as per court order. 2. Guardianship paperwork since the patient cannot take informed decisions. 3. The oncologist already review her case due to the masses of her both lungs but the patient refused to have the procedure of biopsy. 4. MOLST will be discussed again and try to get it sign. Apparently the patient does not have capacity to take informed decisions regarding her MOLST. 5. We need a guardian so we can offer all the medical treatment that she needs at this moment so far, she has refused any treatment or diagnostic procedures for the nodules on her chest. Today we had guardianship hearing. I spent minutes with the patient and/or on the patient floor today, greater than?50% of which was spent counseling/coordinating care. Patient educated on: medication risk/benefits and other Reason for contiued inpatient stay Substantial Risk for: inability to function, rapid decompensation and med/psych decompensation
[2022-02-05] MEDS: hydroCHLOROthiazide 12.5 MG TABLET PO (08:41)
[2022-02-05 18:00] VITALS: BP 178/86; PULSE 78; RESP 17; TEMP 36.9; O2SAT 95
[2022-02-05] MEDS: OLANZapine 2.5 MG TABLET PO (21:41)
[2022-02-05] MEDS: traZODone HCL 50 MG TABLET PO (21:41)
[2022-02-06] MEDS: hydroCHLOROthiazide 12.5 MG TABLET PO (09:38)
--- NOTE | 2022-02-06 11:55 | HO.PSYCHPN ---
Subjective Subjective Date of Service: 02/06/22 Reason For Visit: Mood Subjective Notes: Section 7 and Section 8 Interim History: The nursing staff reported the patient has been eating and sleeping well, she was angry today in the morning regarding her breakfast. She had been perseverative regarding the guardianship and other legal problems. The child protective services social worker reported that her causing [place] and showed up and she will be redirected with a crisis worker. On interview, the patient can not remember the we have discussed at length her legal issues and she is perseverative about her house and the need of taking care of these. No insight into her condition Mental Status Exam Mental Status Exam Patient Appearance: Appropriate Patient Orientation: Person and Situation Level of Consciousness: Awake Patient Behavior: Guarded and Passive Mood Description: Calm Affect Description: Labile Patient Cognition Impaired: Yes Ability to Follow Directions: Good Speech Pattern: Clear Hallucinations: None Delusions: Paranoid Ideation Thought Process: Illogical and Evasive Thought Content: positive for [place], positive for Obsessional Thoughts and positive for Poverty of Content Judgement: Fair Diagnostics Vital Signs (24Hr): Vital Signs - 24 hr 02/05/22 18:00 Temperature 98.5 F Pulse Rate 78 Respiratory Rate 17 Blood Pressure 178/86 H Pulse Oximetry 95 Oxygen Delivery Method Room Air BMI result Body Mass Index 26.4 Labs Results: 01/20/22 08:00 01/20/22 08:00 Imaging Radiology Impressions: ITS Impressions Chest CT 01/10/22 15:11 IMPRESSION: Bilateral small pulmonary nodules, left greater than right. Biapical pleural and parenchymal scarring. 1.1 x 1.4 cm heterogeneous or semisolid right apical nodule, question related to pleural and parenchymal scarring. 1.5 cm partially calcified left thyroid nodule. Based on patient age in size, this does not meet criteria for follow-up. Moderate coronary artery calcification. Fleischner guidelines were followed. Medications Medications Current Medications Acetaminophen (Acetaminophen 325 Mg Tablet) 650 mg PO Q6H PRN PRN Reason: Headache/Pain Mild Scale (1-3) Al Hydroxide/Mg Hydroxide (Magnesium Hydrox/Alum Hydrox 30 Ml Oral.Susp) 30 ml PO Q6H PRN PRN Reason: Heartburn/Nausea Donepezil HCl (Donepezil Hcl 5 Mg Tablet) 5 mg PO BEDTIME TIMOTEO Last Admin: 02/05/22 21:49 Dose: Not Given Hydrochlorothiazide (Hydrochlorothiazide 12.5 Mg Tablet) 12.5 mg PO DAILY TIMOTEO; Protocol Last Admin: 02/06/22 09:38 Dose: 12.5 mg Hydrocortisone (Hydrocortisone 1 % Cream 28.35 Gm Tube) 1 appl TOPICAL DAILY PRN PRN Reason: pruritic skin Hydroxyzine HCl (Hydroxyzine Hcl 25 Mg Tablet) 25 mg PO Q6H PRN PRN Reason: Anxiety Ketoconazole (Ketoconazole 2 % Shampoo 120 Ml Btl) 1 appl TOPICAL MoTh TIMOTEO; Protocol Last Admin: 02/02/22 14:38 Dose: Not Given Magnesium Hydroxide (Milk Of Magnesia 30 Ml Oral.Susp) 30 ml PO DAILY PRN PRN Reason: Constipation Olanzapine (Olanzapine 10 Mg Vial) 5 mg IM BEDTIME PRN PRN Reason: refusal of PO Last Admin: 01/24/22 22:11 Dose: 5 mg Olanzapine (Olanzapine 2.5 Mg Tablet) 2.5 mg PO BEDTIME TIMOTEO Last Admin: 02/05/22 21:41 Dose: 2.5 mg Trazodone HCl (Trazodone Hcl 50 Mg Tablet) 50 mg PO BEDTIME PRN PRN Reason: Insomnia Last Admin: 02/05/22 21:41 Dose: 50 mg Allergies Allergies Allergy/AdvReac Type Severity Reaction Status Date / Time codeine Allergy Unknown Unknown Verified 12/15/21 18:29 sulfadiazine Allergy Unknown Unknown Verified 12/15/21 18:29 Assessment & Plan Assessment & Plan (1) Psychosis: Status: Acute Code(s): F29 - Unspecified psychosis not due to a substance or known physiological condition Plan The patient is an elderly female, recently , with poor social support, no help from family or a with and says, admitted into the hospital for psychotic symptoms elicited by paranoia against a major of [facility], failure to thrive and hoarding. Please see the HPI of the admission note for further details. Currently on Section 7 and 8 since the patient wants to leave and does not have any insight into her condition. Plan 1. Continue with Zyprexa as per court order. 2. Guardianship paperwork since the patient cannot take informed decisions. 3. The oncologist already review her case due to the masses of her both lungs but the patient refused to have the procedure of biopsy. 4. MOLST will be discussed again and try to get it sign. Apparently the patient does not have capacity to take informed decisions regarding her MOLST. 5. We need a guardian so we can offer all the medical treatment that she needs at this moment so far, she has refused any treatment or diagnostic procedures for the nodules on her chest. Today we had guardianship hearing. I spent __20____ minutes with the patient and/or on the patient floor today, greater than?50% of which was spent counseling/coordinating care. Reason for contiued inpatient stay Substantial Risk for: inability to function, rapid decompensation and med/psych decompensation
[2022-02-06 18:00] VITALS: BP 169/74; PULSE 66; RESP 16; TEMP 36.7; O2SAT 95
[2022-02-06] MEDS: traZODone HCL 50 MG TABLET PO (21:27)
[2022-02-06] MEDS: OLANZapine 2.5 MG TABLET PO (21:27)
[2022-02-07] MEDS: hydroCHLOROthiazide 12.5 MG TABLET PO (09:52)
--- NOTE | 2022-02-07 11:00 | HO.PSYCHPN ---
Subjective Subjective Date of Service: 02/07/22 Reason For Visit: Mood Subjective Notes: Section 7 and Section 8 Interim History: The nursing staff reported the patient took her Zyprexa by mouth. Yesterday she was very angry she threw her tray but nobody was inter. The OT has noticed the patient is more connected with her peers. The child protective services social worker reported that her guardian had been appointmented and stable redirect the family to him. On interview the patient cannot remember that we discussed before about her stay here and why she is here no insight into her condition. Mental Status Exam Mental Status Exam Patient Appearance: Well Grooomed Patient Orientation: Person and Situation Level of Consciousness: Awake Patient Behavior: Guarded Mood Description: Calm Affect Description: Labile Patient Cognition Impaired: Yes Ability to Follow Directions: Good Speech Pattern: Clear and Loud Hallucinations: None Delusions: Not Present Thought Process: Distracted, Evasive and Slowed Thinking Thought Content: positive for Obsessional Thoughts and positive for Poverty of Content Judgement: Poor Diagnostics Vital Signs (24Hr): Vital Signs - 24 hr 02/06/22 18:00 Temperature 98.0 F Pulse Rate 66 Respiratory Rate 16 Blood Pressure 169/74 H Pulse Oximetry 95 Oxygen Delivery Method Room Air BMI result Body Mass Index 26.4 Labs Results: 01/20/22 08:00 01/20/22 08:00 Imaging Radiology Impressions: ITS Impressions Chest CT 01/10/22 15:11 IMPRESSION: Bilateral small pulmonary nodules, left greater than right. Biapical pleural and parenchymal scarring. 1.1 x 1.4 cm heterogeneous or semisolid right apical nodule, question related to pleural and parenchymal scarring. 1.5 cm partially calcified left thyroid nodule. Based on patient age in size, this does not meet criteria for follow-up. Moderate coronary artery calcification. Fleischner guidelines were followed. Medications Medications Current Medications Acetaminophen (Acetaminophen 325 Mg Tablet) 650 mg PO Q6H PRN PRN Reason: Headache/Pain Mild Scale (1-3) Al Hydroxide/Mg Hydroxide (Magnesium Hydrox/Alum Hydrox 30 Ml Oral.Susp) 30 ml PO Q6H PRN PRN Reason: Heartburn/Nausea Donepezil HCl (Donepezil Hcl 5 Mg Tablet) 5 mg PO BEDTIME TIMOTEO Last Admin: 02/06/22 21:56 Dose: Not Given Hydrochlorothiazide (Hydrochlorothiazide 12.5 Mg Tablet) 12.5 mg PO DAILY TIMOTEO; Protocol Last Admin: 02/07/22 09:52 Dose: 12.5 mg Hydrocortisone (Hydrocortisone 1 % Cream 28.35 Gm Tube) 1 appl TOPICAL DAILY PRN PRN Reason: pruritic skin Hydroxyzine HCl (Hydroxyzine Hcl 25 Mg Tablet) 25 mg PO Q6H PRN PRN Reason: Anxiety Ketoconazole (Ketoconazole 2 % Shampoo 120 Ml Btl) 1 appl TOPICAL MoTh TIMOTEO; Protocol Last Admin: 02/06/22 14:30 Dose: Not Given Magnesium Hydroxide (Milk Of Magnesia 30 Ml Oral.Susp) 30 ml PO DAILY PRN PRN Reason: Constipation Olanzapine (Olanzapine 10 Mg Vial) 5 mg IM BEDTIME PRN PRN Reason: refusal of PO Last Admin: 01/24/22 22:11 Dose: 5 mg Olanzapine (Olanzapine 2.5 Mg Tablet) 2.5 mg PO BEDTIME TIMOTEO Last Admin: 02/06/22 21:27 Dose: 2.5 mg Trazodone HCl (Trazodone Hcl 50 Mg Tablet) 50 mg PO BEDTIME PRN PRN Reason: Insomnia Last Admin: 02/06/22 21:27 Dose: 50 mg Allergies Allergies Allergy/AdvReac Type Severity Reaction Status Date / Time codeine Allergy Unknown Unknown Verified 12/15/21 18:29 sulfadiazine Allergy Unknown Unknown Verified 12/15/21 18:29 Assessment & Plan Assessment & Plan (1) Psychosis: Status: Acute Code(s): F29 - Unspecified psychosis not due to a substance or known physiological condition Plan The patient is an elderly female, recently , with poor social support, no help from family or a with and says, admitted into the hospital for psychotic symptoms elicited by paranoia against a major of [facility], failure to thrive and hoarding. Please see the HPI of the admission note for further details. Currently on Section 7 and 8 since the patient wants to leave and does not have any insight into her condition. Plan 1. Continue with Zyprexa as per court order. 2. Guardianship paperwork since the patient cannot take informed decisions. 3. The oncologist already review her case due to the masses of her both lungs but the patient refused to have the procedure of biopsy. 4. MOLST will be discussed again and try to get it sign. Apparently the patient does not have capacity to take informed decisions regarding her MOLST. 5. We need a guardian so we can offer all the medical treatment that she needs at this moment so far, she has refused any treatment or diagnostic procedures for the nodules on her chest. 6. We had guardianship and a social scientist was appointed. We will redirect the family to discarding to coordinate efforts. I spent ___20___ minutes with the patient and/or on the patient floor today, greater than?50% of which was spent counseling/coordinating care. Reason for contiued inpatient stay Substantial Risk for: inability to function, rapid decompensation and med/psych decompensation
[2022-02-07 19:00] VITALS: BP 205/91; PULSE 76; RESP 16; TEMP 36.7; O2SAT 95
[2022-02-07] MEDS: traZODone HCL 50 MG TABLET PO (20:24)
[2022-02-07] MEDS: OLANZapine 2.5 MG TABLET PO (20:25)
[2022-02-07 21:20] VITALS: BP 172/81
[2022-02-08 06:00] VITALS: BP 156/83; PULSE 77; RESP 16; TEMP 36.9; O2SAT 94
[2022-02-08] MEDS: hydroCHLOROthiazide 12.5 MG TABLET PO (08:32)
--- NOTE | 2022-02-08 12:08 | P.PNPSI_ITS ---
Subjective Subjective Date of Service: 02/08/22 Reason For Visit: Mood Subjective Notes: Conditional Voluntary Interim History: The nursing staff reported the patient was angry yesterday with her roommate. She had been angry and verbally abusive to were staff and peers. On interview, the patient stated that she cannot hear very well and we will try to get [id number] hearing aids. No changes in her mental status. Mental Status Exam Mental Status Exam Patient Appearance: Well Grooomed Patient Orientation: Person and Situation Level of Consciousness: Awake Patient Behavior: Guarded and Passive Mood Description: Calm Affect Description: Constricted Patient Cognition Impaired: Yes Ability to Follow Directions: Good Speech Pattern: Clear and Loud Hallucinations: None Delusions: Paranoid Ideation Thought Process: Illogical and Distracted Thought Content: positive for Circumstantial Judgement: Poor Diagnostics Vital Signs (24Hr): Vital Signs - 24 hr 02/07/22 19:00 02/07/22 21:20 Temperature 98.1 F Pulse Rate 76 Respiratory Rate 16 Blood Pressure 205/91 H 172/81 H Pulse Oximetry 95 Oxygen Delivery Method Room Air BMI result Body Mass Index 26.4 Labs Results: 01/20/22 08:00 01/20/22 08:00 Imaging Radiology Impressions: ITS Impressions Chest CT 01/10/22 15:11 IMPRESSION: Bilateral small pulmonary nodules, left greater than right. Biapical pleural and parenchymal scarring. 1.1 x 1.4 cm heterogeneous or semisolid right apical nodule, question related to pleural and parenchymal scarring. 1.5 cm partially calcified left thyroid nodule. Based on patient age in size, this does not meet criteria for follow-up. Moderate coronary artery calcification. Fleischner guidelines were followed. Medications Medications Current Medications Acetaminophen (Acetaminophen 325 Mg Tablet) 650 mg PO Q6H PRN PRN Reason: Headache/Pain Mild Scale (1-3) Al Hydroxide/Mg Hydroxide (Magnesium Hydrox/Alum Hydrox 30 Ml Oral.Susp) 30 ml PO Q6H PRN PRN Reason: Heartburn/Nausea Donepezil HCl (Donepezil Hcl 5 Mg Tablet) 5 mg PO BEDTIME TIMOTEO Last Admin: 02/07/22 20:29 Dose: Not Given Hydrochlorothiazide (Hydrochlorothiazide 12.5 Mg Tablet) 12.5 mg PO DAILY TIMOTEO; Protocol Last Admin: 02/08/22 08:32 Dose: 12.5 mg Hydrocortisone (Hydrocortisone 1 % Cream 28.35 Gm Tube) 1 appl TOPICAL DAILY PRN PRN Reason: pruritic skin Hydroxyzine HCl (Hydroxyzine Hcl 25 Mg Tablet) 25 mg PO Q6H PRN PRN Reason: Anxiety Ketoconazole (Ketoconazole 2 % Shampoo 120 Ml Btl) 1 appl TOPICAL MoTh TIMOTEO; Protocol Last Admin: 02/06/22 14:30 Dose: Not Given Magnesium Hydroxide (Milk Of Magnesia 30 Ml Oral.Susp) 30 ml PO DAILY PRN PRN Reason: Constipation Olanzapine (Olanzapine 10 Mg Vial) 5 mg IM BEDTIME PRN PRN Reason: refusal of PO Last Admin: 01/24/22 22:11 Dose: 5 mg Olanzapine (Olanzapine 2.5 Mg Tablet) 2.5 mg PO BEDTIME TIMOTEO Last Admin: 02/07/22 20:25 Dose: 2.5 mg Trazodone HCl (Trazodone Hcl 50 Mg Tablet) 50 mg PO BEDTIME PRN PRN Reason: Insomnia Last Admin: 02/07/22 20:24 Dose: 50 mg Allergies Allergies Allergy/AdvReac Type Severity Reaction Status Date / Time codeine Allergy Unknown Unknown Verified 12/15/21 18:29 sulfadiazine Allergy Unknown Unknown Verified 12/15/21 18:29 Assessment & Plan Assessment & Plan (1) Psychosis: Status: Acute Code(s): F29 - Unspecified psychosis not due to a substance or known physiological condition Plan The patient is an elderly female, recently , with poor social support, no help from family or a with and says, admitted into the hospital for psychotic symptoms elicited by paranoia against a major of [facility], failure to thrive and hoarding. Please see the HPI of the admission note for f urther details. Currently on Section 7 and 8 since the patient wants to leave and does not have any insight into her condition. Plan 1. Continue with Zyprexa as per court order. 2. Guardianship paperwork since the patient cannot take informed decisions. 3. The oncologist already review her case due to the masses of her both lungs but the patient refused to have the procedure of biopsy. 4. MOLST will be discussed again and try to get it sign. Apparently the patient does not have capacity to take informed decisions regarding her MOLST. 5. We need a guardian so we can offer all the medical treatment that she needs at this moment so far, she has refused any treatment or diagnostic procedures for the nodules on her chest. 6. We had guardianship and a personnel scheduler was appointed. We will redirect the family to coordinate efforts. I spent ___20___ minutes with the patient and/or on the patient floor today, greater than?50% of which was spent counseling/coordinating care. Reason for contiued inpatient stay Substantial Risk for: inability to function, rapid decompensation and med/psych decompensation
[2022-02-08 18:00] VITALS: BP 185/88; PULSE 80; RESP 16; TEMP 36.4; O2SAT 94
[2022-02-08] MEDS: OLANZapine 2.5 MG TABLET PO (21:05)
[2022-02-08] MEDS: traZODone HCL 50 MG TABLET PO (21:05)
[2022-02-09 08:59] VITALS: RESP 17
--- NOTE | 2022-02-09 10:57 | HO.PSYCHPN ---
Subjective Subjective Date of Service: 02/09/22 Reason For Visit: Mood Subjective Notes: Section 7 and Section 8 Interim History: The nursing staff reported the patient has no change in her mental status, she took her Zyprexa p.o. without major complaints. On interview the patient reported that she wanted to go home, unable to remember the conversations that we have before. Mental Status Exam Mental Status Exam Patient Appearance: Appropriate Patient Orientation: Person and Situation Level of Consciousness: Disoriented and Restless Patient Behavior: Guarded and Passive Mood Description: Constricted Affect Description: Labile Patient Cognition Impaired: Yes Ability to Follow Directions: Good Speech Pattern: Clear Hallucinations: None Delusions: Not Present Thought Process: Distracted and Slowed Thinking Thought Content: positive for [place] Judgement: Poor Diagnostics Vital Signs (24Hr): Vital Signs - 24 hr 02/08/22 18:00 02/09/22 08:59 Temperature 97.5 F Pulse Rate 80 Respiratory Rate 16 17 Blood Pressure 185/88 H Pulse Oximetry 94 Oxygen Delivery Method Room Air BMI result Body Mass Index 26.4 Labs Results: 01/20/22 08:00 01/20/22 08:00 Imaging Radiology Impressions: ITS Impressions Chest CT 01/10/22 15:11 IMPRESSION: Bilateral small pulmonary nodules, left greater than right. Biapical pleural and parenchymal scarring. 1.1 x 1.4 cm heterogeneous or semisolid right apical nodule, question related to pleural and parenchymal scarring. 1.5 cm partially calcified left thyroid nodule. Based on patient age in size, this does not meet criteria for follow-up. Moderate coronary artery calcification. Fleischner guidelines were followed. Medications Medications Current Medications Acetaminophen (Acetaminophen 325 Mg Tablet) 650 mg PO Q6H PRN PRN Reason: Headache/Pain Mild Scale (1-3) Al Hydroxide/Mg Hydroxide (Magnesium Hydrox/Alum Hydrox 30 Ml Oral.Susp) 30 ml PO Q6H PRN PRN Reason: Heartburn/Nausea Donepezil HCl (Donepezil Hcl 5 Mg Tablet) 5 mg PO BEDTIME TIMOTEO Last Admin: 02/08/22 21:06 Dose: Not Given Hydrochlorothiazide (Hydrochlorothiazide 12.5 Mg Tablet) 12.5 mg PO DAILY TIMOTEO; Protocol Last Admin: 02/09/22 09:00 Dose: Not Given Hydrocortisone (Hydrocortisone 1 % Cream 28.35 Gm Tube) 1 appl TOPICAL DAILY PRN PRN Reason: pruritic skin Hydroxyzine HCl (Hydroxyzine Hcl 25 Mg Tablet) 25 mg PO Q6H PRN PRN Reason: Anxiety Ketoconazole (Ketoconazole 2 % Shampoo 120 Ml Btl) 1 appl TOPICAL MoTh TIMOTEO; Protocol Last Admin: 02/06/22 14:30 Dose: Not Given Magnesium Hydroxide (Milk Of Magnesia 30 Ml Oral.Susp) 30 ml PO DAILY PRN PRN Reason: Constipation Olanzapine (Olanzapine 10 Mg Vial) 5 mg IM BEDTIME PRN PRN Reason: refusal of PO Last Admin: 01/24/22 22:11 Dose: 5 mg Olanzapine (Olanzapine 2.5 Mg Tablet) 2.5 mg PO BEDTIME TIMOTEO Last Admin: 02/08/22 21:05 Dose: 2.5 mg Trazodone HCl (Trazodone Hcl 50 Mg Tablet) 50 mg PO BEDTIME PRN PRN Reason: Insomnia Last Admin: 02/08/22 21:05 Dose: 50 mg Allergies Allergies Allergy/AdvReac Type Severity Reaction Status Date / Time codeine Allergy Unknown Unknown Verified 12/15/21 18:29 sulfadiazine Allergy Unknown Unknown Verified 12/15/21 18:29 Assessment & Plan Assessment & Plan (1) Psychosis: Status: Acute Code(s): F29 - Unspecified psychosis not due to a substance or known physiological condition Plan The patient is an elderly female, recently , with poor social support, no help from family or a with and says, admitted into the hospital for psychotic symptoms elicited by paranoia against a major of [facility], failure to thrive and hoarding. Please see the HPI of the admission note for further details. Currently on Section 7 and 8 since the patient wants to leave and does not have any insight into her condition. Plan 1. Continue with Zyprexa as per court order. 2. Guardianship paperwork since the patient cannot take informed decisions. 3. The oncologist already review her case due to the masses of her both lungs but the patient refused to have the procedure of biopsy. 4. MOLST will be discussed again and try to get it sign. Apparently the patient does not have capacity to take informed decisions regarding her MOLST. 5. We need a guardian so we can offer all the medical treatment that she needs at this moment so far, she has refused any treatment or diagnostic procedures for the nodules on her chest. 6. We had guardianship and a apprentice painter neckties was appointed. We will redirect the family to coordinate efforts. I spent ___20___ minutes with the patient and/or on the patient floor today, greater than?50% of which was spent counseling/coordinating care. Reason for contiued inpatient stay Substantial Risk for: inability to function, rapid decompensation and med/psych decompensation
[2022-02-09 19:00] VITALS: BP 155/70; PULSE 72; RESP 18; TEMP 36.7; O2SAT 96
[2022-02-09] MEDS: OLANZapine 2.5 MG TABLET PO (20:13)
[2022-02-09] MEDS: traZODone HCL 50 MG TABLET PO (20:13)
--- NOTE | 2022-02-10 08:30 | P.PNPSI_ITS ---
Subjective Subjective Date of Service: 02/10/22 Reason For Visit: Mood Subjective Notes: Section 7 and Section 8 Interim History: The nursing staff reported that yesterday she was seen is sleeping in the common areas. Sometimes she gets agitated and slums her walker against furniture. Yesterday she took Zyprexa p.o. with a lot of encouragement. On interview the patient remains confused and irritable at times. She cannot remember that we had been discussing about her case every day. She asked to D/C Zyprexa, no insight into her condition Mental Status Exam Mental Status Exam Patient Appearance: Appropriate Patient Orientation: Person and Situation Level of Consciousness: Awake and Appropriate Patient Behavior: Guarded and Passive Mood Description: Calm Affect Description: Constricted Patient Cognition Impaired: Yes Ability to Follow Directions: Good Speech Pattern: Clear Hallucinations: None Delusions: Paranoid Ideation Thought Process: Distracted Thought Content: positive for [place], positive for Obsessional Thoughts, positive for [place] and positive for Poverty of Content Judgement: Poor Diagnostics Vital Signs (24Hr): Vital Signs - 24 hr 02/09/22 08:59 02/09/22 19:00 Temperature 98.1 F Pulse Rate 72 Respiratory Rate 17 18 Blood Pressure 155/70 H Pulse Oximetry 96 Oxygen Delivery Method Room Air BMI result Body Mass Index 26.4 Labs Results: 01/20/22 08:00 01/20/22 08:00 Imaging Radiology Impressions: ITS Impressions Chest CT 01/10/22 15:11 IMPRESSION: Bilateral small pulmonary nodules, left greater than right. Biapical pleural and parenchymal scarring. 1.1 x 1.4 cm heterogeneous or semisolid right apical nodule, question related to pleural and parenchymal scarring. 1.5 cm partially calcified left thyroid nodule. Based on patient age in size, this does not meet criteria for follow-up. Moderate coronary artery calcification. Fleischner guidelines were followed. Medications Medications Current Medications Acetaminophen (Acetaminophen 325 Mg Tablet) 650 mg PO Q6H PRN PRN Reason: Headache/Pain Mild Scale (1-3) Al Hydroxide/Mg Hydroxide (Magnesium Hydrox/Alum Hydrox 30 Ml Oral.Susp) 30 ml PO Q6H PRN PRN Reason: Heartburn/Nausea Donepezil HCl (Donepezil Hcl 5 Mg Tablet) 5 mg PO BEDTIME TIMOTEO Last Admin: 02/09/22 21:00 Dose: Not Given Hydrochlorothiazide (Hydrochlorothiazide 12.5 Mg Tablet) 12.5 mg PO DAILY TIMOTEO; Protocol Last Admin: 02/09/22 09:00 Dose: Not Given Hydrocortisone (Hydrocortisone 1 % Cream 28.35 Gm Tube) 1 appl TOPICAL DAILY PRN PRN Reason: pruritic skin Hydroxyzine HCl (Hydroxyzine Hcl 25 Mg Tablet) 25 mg PO Q6H PRN PRN Reason: Anxiety Ketoconazole (Ketoconazole 2 % Shampoo 120 Ml Btl) 1 appl TOPICAL MoTh TIMOTEO; Protocol Last Admin: 02/09/22 14:26 Dose: Not Given Magnesium Hydroxide (Milk Of Magnesia 30 Ml Oral.Susp) 30 ml PO DAILY PRN PRN Reason: Constipation Olanzapine (Olanzapine 10 Mg Vial) 5 mg IM BEDTIME PRN PRN Reason: refusal of PO Last Admin: 01/24/22 22:11 Dose: 5 mg Olanzapine (Olanzapine 2.5 Mg Tablet) 2.5 mg PO BEDTIME TIMOTEO Last Admin: 02/09/22 20:13 Dose: 2.5 mg Trazodone HCl (Trazodone Hcl 50 Mg Tablet) 50 mg PO BEDTIME PRN PRN Reason: Insomnia Last Admin: 02/09/22 20:13 Dose: 50 mg Allergies Allergies Allergy/AdvReac Type Severity Reaction Status Date / Time codeine Allergy Unknown Unknown Verified 12/15/21 18:29 sulfadiazine Allergy Unknown Unknown Verified 12/15/21 18:29 Assessment & Plan Assessment & Plan (1) Psychosis: Status: Acute Code(s): F29 - Unspecified psychosis not due to a substance or known physiological condition Plan The patient is an elderly female, recently , with poor social support, no help from family or a with and says, admitted into the hospital for psychotic symptoms elicited by paranoia against a major of [facility], failure to thrive and hoarding. Please see the HPI of the admission note for further details. Currently on Section 7 and 8 since the patient wants to leave and does not have any insight into her condition. Plan 1. Continue with Zyprexa as per court order. 2. Guardianship paperwork since the patient cannot take informed decisions. 3. The oncologist already review her case due to the masses of her both lungs but the patient refused to have the procedure of biopsy. 4. MOLST will be discussed again and try to get it sign. Apparently the patient does not have capacity to take informed decisions regarding her MOLST. 5. We need a guardian so we can offer all the medical treatment that she needs at this moment so far, she has refused any treatment or diagnostic procedures for the nodules on her chest. 6. We had guardianship and a auto service instructor was appointed. We will redirect the family to coordinate efforts. I spent ___20___ minutes with the patient and/or on the patient floor today, greater than?50% of which was spent counseling/coordinating care. Reason for contiued inpatient stay Substantial Risk for: inability to function, rapid decompensation and med/psych decompensation
--- NOTE | 2022-02-10 13:25 | PC.NURSE ---
Pt. alert and oriented X 3. Continues to have poor memory and insight into situation. Reports readiness for discharge. No anxiety, depression, SI/HI/AH/VH. Meds and appointments reviewed with pt. and son. Left unit ambulating with cane and accompanied by son and MHA at 1320.
[2022-02-10 18:00] VITALS: BP 176/80; PULSE 73; RESP 16; TEMP 36.9; O2SAT 94
[2022-02-10] MEDS: OLANZapine 2.5 MG TABLET PO (19:47)
[2022-02-10] MEDS: traZODone HCL 50 MG TABLET PO (19:48)
[2022-02-11 09:45] VITALS: PULSE 76; RESP 16; TEMP 35.9; O2SAT 93
[2022-02-11] MEDS: hydroCHLOROthiazide 12.5 MG TABLET PO (09:45)
--- NOTE | 2022-02-11 10:16 | P.PNPSI_ITS ---
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 She denies SI/HI. pt not oriented to situation, pleasant. Per nursing, no behavioral concerns. taking meds as prescribed. Medication Compliance: Yes Side effects from medications: No Attending Groups: No Review of Systems Review of Systems Lower extremity edema Yes Unobtainable due to mental status Constitutional: Reports no additional constitutional complaints Eyes: Reports no additional eye complaints Reports system reviewed and no additional complaints, except as documented Cardiovascular: Reports no additional cardiovascular complaints Respiratory: Reports no additional respiratory complaints Gastrointestinal: Reports no additional gastrointestinal complaints Musculoskeletal: Reports no additional musculoskeletal complaints Skin/Breast: Reports system reviewed and no additional complaints, except as docu Reports system reviewed and no additional complaints, except as documented Psychiatric: Reports no additional psychiatric complaints Endocrine: Reports no additional endocrine complaints Hematologic/Lymphatic: Reports no additional hematologic/lymphatic complaints Allergic/Immunologic: Reports no additional allergic/immunologic complaints Mental Status Exam Mental Status Exam Narrative: Patient Appearance: Appropriate Patient Orientation: Person and Situation Level of Consciousness: Disoriented Patient Behavior: Guarded and Passive Mood Description: Withdrawn Affect Description: Constricted Patient Cognition Impaired: Yes Ability to Follow Directions: Fair Speech Pattern: Clear Hallucinations: None Delusions: Paranoid Ideation Thought Process: Distracted and Evasive Thought Content: positive for [place] and positive for Poverty of Content Judgement: Fair Diagnostics Vital Signs (24Hr): Vital Signs - 24 hr 02/12/22 18:00 Temperature 96.4 F L Pulse Rate 75 Respiratory Rate 18 Blood Pressure 166/76 H Pulse Oximetry 96 Oxygen Delivery Method Room Air BMI result Body Mass Index 26.4 Labs Results: 01/20/22 08:00 01/20/22 08:00 Imaging Radiology Impressions: ITS Impressions Chest CT 01/10/22 15:11 IMPRESSION: Bilateral small pulmonary nodules, left greater than right. Biapical pleural and parenchymal scarring. 1.1 x 1.4 cm heterogeneous or semisolid right apical nodule, question related to pleural and parenchymal scarring. 1.5 cm partially calcified left thyroid nodule. Based on patient age in size, this does not meet criteria for follow-up. Moderate coronary artery calcification. Fleischner guidelines were followed. Medications Medications Current Medications Acetaminophen (Acetaminophen 325 Mg Tablet) 650 mg PO Q6H PRN PRN Reason: Headache/Pain Mild Scale (1-3) Al Hydroxide/Mg Hydroxide (Magnesium Hydrox/Alum Hydrox 30 Ml Oral.Susp) 30 ml PO Q6H PRN PRN Reason: Heartburn/Nausea Donepezil HCl (Donepezil Hcl 5 Mg Tablet) 5 mg PO BEDTIME TIMOTEO Last Admin: 02/12/22 20:54 Dose: Not Given Hydrochlorothiazide (Hydrochlorothiazide 12.5 Mg Tablet) 12.5 mg PO DAILY TIMOTEO; Protocol Last Admin: 02/12/22 08:24 Dose: 12.5 mg Hydrocortisone (Hydrocortisone 1 % Cream 28.35 Gm Tube) 1 appl TOPICAL DAILY PRN PRN Reason: pruritic skin Hydroxyzine HCl (Hydroxyzine Hcl 25 Mg Tablet) 25 mg PO Q6H PRN PRN Reason: Anxiety Ketoconazole (Ketoconazole 2 % Shampoo 120 Ml Btl) 1 appl TOPICAL MoTh TIMOTEO; Protocol Last Admin: 02/09/22 14:26 Dose: Not Given Magnesium Hydroxide (Milk Of Magnesia 30 Ml Oral.Susp) 30 ml PO DAILY PRN PRN Reason: Constipation Olanzapine (Olanzapine 10 Mg Vial) 5 mg IM BEDTIME PRN PRN Reason: refusal of PO Last Admin: 01/24/22 22:11 Dose: 5 mg Olanzapine (Olanzapine 2.5 Mg Tablet) 2.5 mg PO BEDTIME TIMOTEO Last Admin: 02/12/22 20:53 Dose: 2.5 mg Trazodone HCl (Trazodone Hcl 50 Mg Tablet) 50 mg PO BEDTIME PRN PRN Reason: Insomnia Last Admin: 02/12/22 20:53 Dose: 50 mg Allergies Allergies Allergy/AdvReac Type Severity Reaction Status Date / Time codeine Allergy Unknown Unknown Verified 12/15/21 18:29 sulfadiazine Allergy Unknown Unknown Verified 12/15/21 18:29 Assessment & Plan Assessment & Plan (1) Psychosis: Status: Acute Code(s): F29 - Unspecified psychosis not due to a substance or known physiological condition Plan The patient is an elderly female, recently , with poor social support, no help from family or a with and says, admitted into the hospital for psychotic symptoms elicited by paranoia against a major of was [place], failure to thrive and hoarding. Please see the HPI of the admission note for further details. Currently on Section 7 and 8 since the patient wants to leave and does not have any insight into her condition. Plan 1. Continue with Zyprexa as per court order. 2. Guardianship paperwork since the patient cannot take informed decisions. 3. The oncologist already review her case due to the masses of her both lungs but the patient refused to have the procedure of biopsy. 4. MOLST will be discussed again and try to get it sign. Apparently the patient does not have capacity to take informed decisions regarding her MOLST. 5. We need a guardian so we can offer all the medical treatment that she needs at this moment so far, she has refused any treatment or diagnostic procedures for the nodules on her chest. 6. We had guardianship and a jeweler apprentice was appointed. We will redirect the family to coordinate efforts. 02/11- continue tx. I spent minutes with the patient and/or on the patient floor today, greater than?50% of which was spent counseling/coordinating care. Reason for contiued inpatient stay Substantial Risk for: inability to function
[2022-02-11 18:00] VITALS: BP 185/89; PULSE 66; RESP 16; TEMP 36.5; O2SAT 96
[2022-02-11] MEDS: traZODone HCL 50 MG TABLET PO (21:12)
[2022-02-11] MEDS: OLANZapine 2.5 MG TABLET PO (21:12)
[2022-02-12 06:00] VITALS: BP 178/80; PULSE 71; RESP 17; TEMP 36.5; O2SAT 96
[2022-02-12] MEDS: hydroCHLOROthiazide 12.5 MG TABLET PO (08:24)
--- NOTE | 2022-02-12 10:19 | HO.PSYCHPN ---
Subjective Subjective Date of Service: 02/12/22 Reason For Visit: Mood Subjective Notes: Conditional Voluntary Interim History: Pt continues to present as pleasant. Pt denies any physical concerns. She has been visible on the unit, social with select peers. No SI/HI. No VH/AH. Medication Compliance: Yes Review of Systems Review of Systems Lower extremity edema Yes Unobtainable due to mental status Constitutional: Reports no additional constitutional complaints Eyes: Reports no additional eye complaints Reports system reviewed and no additional complaints, except as documented Cardiovascular: Reports no additional cardiovascular complaints Respiratory: Reports no additional respiratory complaints Gastrointestinal: Reports no additional gastrointestinal complaints Musculoskeletal: Reports no additional musculoskeletal complaints Skin/Breast: Reports system reviewed and no additional complaints, except as docu Reports system reviewed and no additional complaints, except as documented Psychiatric: Reports no additional psychiatric complaints Endocrine: Reports no additional endocrine complaints Hematologic/Lymphatic: Reports no additional hematologic/lymphatic complaints Allergic/Immunologic: Reports no additional allergic/immunologic complaints Mental Status Exam Mental Status Exam Narrative: Patient Appearance: Appropriate Patient Orientation: Person and Situation Level of Consciousness: Disoriented Patient Behavior: Guarded and Passive Mood Description: Withdrawn Affect Description: Constricted Patient Cognition Impaired: Yes Ability to Follow Directions: Fair Speech Pattern: Clear Hallucinations: None Delusions: Paranoid Ideation Thought Process: Distracted and Evasive Thought Content: positive for [place] and positive for Poverty of Content Judgement: Fair Diagnostics Vital Signs (24Hr): Vital Signs - 24 hr 02/12/22 18:00 Temperature 96.4 F L Pulse Rate 75 Respiratory Rate 18 Blood Pressure 166/76 H Pulse Oximetry 96 Oxygen Delivery Method Room Air BMI result Body Mass Index 26.4 Labs Results: 01/20/22 08:00 01/20/22 08:00 Imaging Radiology Impressions: ITS Impressions Chest CT 01/10/22 15:11 IMPRESSION: Bilateral small pulmonary nodules, left greater than right. Biapical pleural and parenchymal scarring. 1.1 x 1.4 cm heterogeneous or semisolid right apical nodule, question related to pleural and parenchymal scarring. 1.5 cm partially calcified left thyroid nodule. Based on patient age in size, this does not meet criteria for follow-up. Moderate coronary artery calcification. Fleischner guidelines were followed. Medications Medications Current Medications Acetaminophen (Acetaminophen 325 Mg Tablet) 650 mg PO Q6H PRN PRN Reason: Headache/Pain Mild Scale (1-3) Al Hydroxide/Mg Hydroxide (Magnesium Hydrox/Alum Hydrox 30 Ml Oral.Susp) 30 ml PO Q6H PRN PRN Reason: Heartburn/Nausea Donepezil HCl (Donepezil Hcl 5 Mg Tablet) 5 mg PO BEDTIME TIMOTEO Last Admin: 02/12/22 20:54 Dose: Not Given Hydrochlorothiazide (Hydrochlorothiazide 12.5 Mg Tablet) 12.5 mg PO DAILY TIMOTEO; Protocol Last Admin: 02/12/22 08:24 Dose: 12.5 mg Hydrocortisone (Hydrocortisone 1 % Cream 28.35 Gm Tube) 1 appl TOPICAL DAILY PRN PRN Reason: pruritic skin Hydroxyzine HCl (Hydroxyzine Hcl 25 Mg Tablet) 25 mg PO Q6H PRN PRN Reason: Anxiety Ketoconazole (Ketoconazole 2 % Shampoo 120 Ml Btl) 1 appl TOPICAL MoTh TIMOTEO; Protocol Last Admin: 02/09/22 14:26 Dose: Not Given Magnesium Hydroxide (Milk Of Magnesia 30 Ml Oral.Susp) 30 ml PO DAILY PRN PRN Reason: Constipation Olanzapine (Olanzapine 10 Mg Vial) 5 mg IM BEDTIME PRN PRN Reason: refusal of PO Last Admin: 01/24/22 22:11 Dose: 5 mg Olanzapine (Olanzapine 2.5 Mg Tablet) 2.5 mg PO BEDTIME TIMOTEO Last Admin: 02/12/22 20:53 Dose: 2.5 mg Trazodone HCl (Trazodone Hcl 50 Mg Tablet) 50 mg PO BEDTIME PRN PRN Reason: Insomnia Last Admin: 02/12/22 20:53 Dose: 50 mg Allergies Allergies Allergy/AdvReac Type Severity Reaction Status Date / Time codeine Allergy Unknown Unknown Verified 12/15/21 18:29 sulfadiazine Allergy Unknown Unknown Verified 12/15/21 18:29 Assessment & Plan Assessment & Plan (1) Psychosis: Status: Acute Code(s): F29 - Unspecified psychosis not due to a substance or known physiological condition Plan The patient is an elderly female, recently , with poor social support, no help from family or a with and says, admitted into the hospital for psychotic symptoms elicited by paranoia against a major of was [place], failure to thrive and hoarding. Please see the HPI of the admission note for further details. Currently on Section 7 and 8 since the patient wants to leave and does not have any insight into her condition. Plan 1. Continue with Zyprexa as per court order. 2. Guardianship paperwork since the patient cannot take informed decisions. 3. The oncologist already review her case due to the masses of her both lungs but the patient refused to have the procedure of biopsy. 4. MOLST will be discussed again and try to get it sign. Apparently the patient does not have capacity to take informed decisions regarding her MOLST. 5. We need a guardian so we can offer all the medical treatment that she needs at this moment so far, she has refused any treatment or diagnostic procedures for the nodules on her chest. 6. We had guardianship and a wildlife management professor was appointed. We will redirect the family to coordinate efforts. 02/11- continue tx. 02/12 continue tx. I spent minutes with the patient and/or on the patient floor today, greater than?50% of which was spent counseling/coordinating care. Reason for contiued inpatient stay Substantial Risk for: inability to function
[2022-02-12 18:00] VITALS: BP 166/76; PULSE 75; RESP 18; TEMP 35.8; O2SAT 96
[2022-02-12] MEDS: traZODone HCL 50 MG TABLET PO (20:53)
[2022-02-12] MEDS: OLANZapine 2.5 MG TABLET PO (20:53)
[2022-02-13 07:45] VITALS: BP 177/81; PULSE 65; RESP 17; TEMP 35.6; O2SAT 97
[2022-02-13] MEDS: hydroCHLOROthiazide 12.5 MG TABLET PO (09:44)
--- NOTE | 2022-02-13 12:54 | P.PNPSI_ITS ---
Subjective Subjective Date of Service: 02/13/22 Reason For Visit: Mood Subjective Notes: Section 7 and Section 8 Interim History: The nursing staff reported the patient has been refusing her Aricept. She is fully aware that she needs to take the Zyprexa because scored remanded. She was very tearful because she stated that she is losing her home, she rode along letter to me advocating for discharge. On interview I explained her that she has already written me 5 letters with the same request and I have explained her legal situation but she cannot remember what we discussed last week. Mental Status Exam Mental Status Exam Patient Appearance: Appropriate Patient Orientation: Person and Situation Level of Consciousness: Awake Patient Behavior: Guarded and Passive Mood Description: Withdrawn Affect Description: Labile Patient Cognition Impaired: Yes Ability to Follow Directions: Fair Speech Pattern: Appropriate Hallucinations: None Delusions: Paranoid Ideation Thought Process: Distracted and Slowed Thinking Thought Content: positive for [place] Judgement: Poor Diagnostics Vital Signs (24Hr): Vital Signs - 24 hr 02/12/22 18:00 Temperature 96.4 F L Pulse Rate 75 Respiratory Rate 18 Blood Pressure 166/76 H Pulse Oximetry 96 Oxygen Delivery Method Room Air BMI result Body Mass Index 26.4 Labs Results: 01/20/22 08:00 01/20/22 08:00 Imaging Radiology Impressions: ITS Impressions Chest CT 01/10/22 15:11 IMPRESSION: Bilateral small pulmonary nodules, left greater than right. Biapical pleural and parenchymal scarring. 1.1 x 1.4 cm heterogeneous or semisolid right apical nodule, question related to pleural and parenchymal scarring. 1.5 cm partially calcified left thyroid nodule. Based on patient age in size, this does not meet criteria for follow-up. Moderate coronary artery calcification. Fleischner guidelines were followed. Medications Medications Current Medications Acetaminophen (Acetaminophen 325 Mg Tablet) 650 mg PO Q6H PRN PRN Reason: Headache/Pain Mild Scale (1-3) Al Hydroxide/Mg Hydroxide (Magnesium Hydrox/Alum Hydrox 30 Ml Oral.Susp) 30 ml PO Q6H PRN PRN Reason: Heartburn/Nausea Donepezil HCl (Donepezil Hcl 5 Mg Tablet) 5 mg PO BEDTIME TIMOTEO Last Admin: 02/12/22 20:54 Dose: Not Given Hydrochlorothiazide (Hydrochlorothiazide 12.5 Mg Tablet) 12.5 mg PO DAILY TIMOTEO; Protocol Last Admin: 02/13/22 09:44 Dose: 12.5 mg Hydrocortisone (Hydrocortisone 1 % Cream 28.35 Gm Tube) 1 appl TOPICAL DAILY PRN PRN Reason: pruritic skin Hydroxyzine HCl (Hydroxyzine Hcl 25 Mg Tablet) 25 mg PO Q6H PRN PRN Reason: Anxiety Ketoconazole (Ketoconazole 2 % Shampoo 120 Ml Btl) 1 appl TOPICAL MoTh TIMOTEO; Protocol Last Admin: 02/09/22 14:26 Dose: Not Given Magnesium Hydroxide (Milk Of Magnesia 30 Ml Oral.Susp) 30 ml PO DAILY PRN PRN Reason: Constipation Olanzapine (Olanzapine 10 Mg Vial) 5 mg IM BEDTIME PRN PRN Reason: refusal of PO Last Admin: 01/24/22 22:11 Dose: 5 mg Olanzapine (Olanzapine 2.5 Mg Tablet) 2.5 mg PO BEDTIME TIMOTEO Last Admin: 02/12/22 20:53 Dose: 2.5 mg Trazodone HCl (Trazodone Hcl 50 Mg Tablet) 50 mg PO BEDTIME PRN PRN Reason: Insomnia Last Admin: 02/12/22 20:53 Dose: 50 mg Allergies Allergies Allergy/AdvReac Type Severity Reaction Status Date / Time codeine Allergy Unknown Unknown Verified 12/15/21 18:29 sulfadiazine Allergy Unknown Unknown Verified 12/15/21 18:29 Assessment & Plan Assessment & Plan (1) Psychosis: Status: Acute Code(s): F29 - Unspecified psychosis not due to a substance or known physiological condition Plan The patient is an elderly female, recently , with poor social support, no help from family or a with and says, admitted into the hospital for psychotic symptoms elicited by paranoia against a major of [facility], failure to thrive and hoarding. Please see the HPI of the admission note for further details. Currently on Section 7 and 8 since the patient wants to leave and does not have any insight into her condition. Plan 1. Continue with Zyprexa as per court order. 2. Guardianship paperwork since the patient cannot take informed decisions. 3. The oncologist already review her case due to the masses of her both lungs but the patient refused to have the procedure of biopsy. 4. MOLST will be discussed again and try to get it sign. Apparently the patient does not have capacity to take informed decisions regarding her MOLST. 5. We need a guardian so we can offer all the medical treatment that she needs at this moment so far, she has refused any treatment or diagnostic procedures for the nodules on her chest. 6. We had guardianship and a military technology specialist was appointed. We will redirect the family to coordinate efforts. I spent __20____ minutes with the patient and/or on the patient floor today, greater than?50% of which was spent counseling/coordinating care. Reason for contiued inpatient stay Substantial Risk for: inability to function, rapid decompensation and med/psych decompensation
[2022-02-13 20:00] VITALS: BP 167/86; PULSE 74; RESP 18; TEMP 37.1; O2SAT 94
[2022-02-13] MEDS: traZODone HCL 50 MG TABLET PO (22:02)
[2022-02-13] MEDS: OLANZapine 2.5 MG TABLET PO (22:02)
[2022-02-14 08:00] VITALS: BP 164/74; PULSE 72; RESP 16; TEMP 36.8; O2SAT 94
[2022-02-14] MEDS: hydroCHLOROthiazide 12.5 MG TABLET PO (09:38)
--- NOTE | 2022-02-14 11:58 | P.PNPSI_ITS ---
Subjective Subjective Date of Service: 02/14/22 Reason For Visit: Mood Subjective Notes: Section 7 and Section 8 Interim History: The nursing staff reported the patient has been very irritable against her roommate. She slept well and she was compliant with her medications no need of Zyprexa IM backup. The director of social work reported that she has trying to call her guardian but she only left messages. We will try to get collateral information regarding her relative was DX acute tear of the will of her . On interview the patient remains forgetful, unable to elaborate about the conversation that we had yesterday. Mental Status Exam Mental Status Exam Patient Appearance: Well Grooomed Patient Orientation: Person and Situation Level of Consciousness: Awake and Appropriate Patient Behavior: Guarded and Passive Mood Description: Constricted Affect Description: Labile Patient Cognition Impaired: Yes Ability to Follow Directions: Fair Speech Pattern: Clear Hallucinations: None Delusions: Paranoid Ideation Thought Process: Illogical and Distracted Thought Content: positive for [place] and positive for Perseveration Judgement: Poor Diagnostics Vital Signs (24Hr): Vital Signs - 24 hr 02/13/22 20:00 Temperature 98.7 F Pulse Rate 74 Respiratory Rate 18 Blood Pressure 167/86 H Pulse Oximetry 94 Oxygen Delivery Method Room Air BMI result Body Mass Index 26.4 Labs Results: 01/20/22 08:00 01/20/22 08:00 Imaging Radiology Impressions: ITS Impressions Chest CT 01/10/22 15:11 IMPRESSION: Bilateral small pulmonary nodules, left greater than right. Biapical pleural and parenchymal scarring. 1.1 x 1.4 cm heterogeneous or semisolid right apical nodule, question related to pleural and parenchymal scarring. 1.5 cm partially calcified left thyroid nodule. Based on patient age in size, this does not meet criteria for follow-up. Moderate coronary artery calcification. Fleischner guidelines were followed. Medications Medications Current Medications Acetaminophen (Acetaminophen 325 Mg Tablet) 650 mg PO Q6H PRN PRN Reason: Headache/Pain Mild Scale (1-3) Al Hydroxide/Mg Hydroxide (Magnesium Hydrox/Alum Hydrox 30 Ml Oral.Susp) 30 ml PO Q6H PRN PRN Reason: Heartburn/Nausea Donepezil HCl (Donepezil Hcl 5 Mg Tablet) 5 mg PO BEDTIME TIMOTEO Last Admin: 02/13/22 23:09 Dose: Not Given Hydrochlorothiazide (Hydrochlorothiazide 12.5 Mg Tablet) 12.5 mg PO DAILY TIMOTEO; Protocol Last Admin: 02/14/22 09:38 Dose: 12.5 mg Hydrocortisone (Hydrocortisone 1 % Cream 28.35 Gm Tube) 1 appl TOPICAL DAILY PRN PRN Reason: pruritic skin Hydroxyzine HCl (Hydroxyzine Hcl 25 Mg Tablet) 25 mg PO Q6H PRN PRN Reason: Anxiety Ketoconazole (Ketoconazole 2 % Shampoo 120 Ml Btl) 1 appl TOPICAL MoTh TIMOTEO; Protocol Last Admin: 02/13/22 14:55 Dose: Not Given Magnesium Hydroxide (Milk Of Magnesia 30 Ml Oral.Susp) 30 ml PO DAILY PRN PRN Reason: Constipation Olanzapine (Olanzapine 10 Mg Vial) 5 mg IM BEDTIME PRN PRN Reason: refusal of PO Last Admin: 01/24/22 22:11 Dose: 5 mg Olanzapine (Olanzapine 2.5 Mg Tablet) 2.5 mg PO BEDTIME TIMOTEO Last Admin: 02/13/22 22:02 Dose: 2.5 mg Trazodone HCl (Trazodone Hcl 50 Mg Tablet) 50 mg PO BEDTIME PRN PRN Reason: Insomnia Last Admin: 02/13/22 22:02 Dose: 50 mg Allergies Allergies Allergy/AdvReac Type Severity Reaction Status Date / Time codeine Allergy Unknown Unknown Verified 12/15/21 18:29 sulfadiazine Allergy Unknown Unknown Verified 12/15/21 18:29 Assessment & Plan Assessment & Plan (1) Psychosis: Status: Acute Code(s): F29 - Unspecified psychosis not due to a substance or known physiological condition Plan The patient is an elderly female, recently , with poor social support, no help from family or a with and says, admitted into the hospital for psychotic symptoms elicited by paranoia against a major of [facility], failure to thrive and hoarding. Please see the HPI of the admission note for further details. Currently on Section 7 and 8 since the patient wants to leave and does not have any insight into her condition. Plan 1. Continue with Zyprexa as per court order. 2. Guardianship paperwork since the patient cannot take informed decisions. 3. The oncologist already review her case due to the masses of her both lungs but the patient refused to have the procedure of biopsy. 4. MOLST will be discussed again and try to get it sign. Apparently the patient does not have capacity to take informed decisions regarding her MOLST. 5. We need a guardian so we can offer all the medical treatment that she needs at this moment so far, she has refused any treatment or diagnostic procedures for the nodules on her chest. 6. We had guardianship and a senior manager asset protection was appointed. We will redirect the family to coordinate efforts. I spent ___20___ minutes with the patient and/or on the patient floor today, greater than?50% of which was spent counseling/coordinating care. Reason for contiued inpatient stay Substantial Risk for: inability to function, rapid decompensation and med/psych decompensation
[2022-02-14 18:00] VITALS: BP 178/80; PULSE 96; RESP 14; TEMP 36.5; O2SAT 96
[2022-02-14] MEDS: OLANZapine 2.5 MG TABLET PO (21:55)
[2022-02-14] MEDS: traZODone HCL 50 MG TABLET PO (21:55)
--- NOTE | 2022-02-15 16:00 | HO.PSYCHPN ---
Subjective Subjective Date of Service: 02/15/22 Reason For Visit: Mood Subjective Notes: Conditional Voluntary Interim History: The nursing staff reported no changes in her mental status, she was compliant with medication. The social science manager reported that today we will have a meeting with her guardian at 11:00 o'clock by phone. Her cousin came yesterday and we will coordinate efforts for discharge planning. The staff has reported that she has noticed some mild bilateral lower leg edema. On interview no changes on mental status. Mental Status Exam Mental Status Exam Patient Appearance: Well Grooomed Patient Orientation: Person and Situation Level of Consciousness: Awake and Appropriate Patient Behavior: Cooperative Mood Description: Constricted Affect Description: Constricted Patient Cognition Impaired: Yes Ability to Follow Directions: Good Speech Pattern: Clear Hallucinations: None Delusions: Not Present Thought Process: Linear Thought Content: positive for Circumstantial Judgement: Fair Diagnostics Vital Signs (24Hr): Vital Signs - 24 hr 02/14/22 18:00 Temperature 97.7 F Pulse Rate 96 Respiratory Rate 14 Blood Pressure 178/80 H Pulse Oximetry 96 Oxygen Delivery Method Room Air BMI result Body Mass Index 26.4 Labs Results: 01/20/22 08:00 01/20/22 08:00 Imaging Radiology Impressions: ITS Impressions Chest CT 01/10/22 15:11 IMPRESSION: Bilateral small pulmonary nodules, left greater than right. Biapical pleural and parenchymal scarring. 1.1 x 1.4 cm heterogeneous or semisolid right apical nodule, question related to pleural and parenchymal scarring. 1.5 cm partially calcified left thyroid nodule. Based on patient age in size, this does not meet criteria for follow-up. Moderate coronary artery calcification. Fleischner guidelines were followed. Medications Medications Current Medications Acetaminophen (Acetaminophen 325 Mg Tablet) 650 mg PO Q6H PRN PRN Reason: Headache/Pain Mild Scale (1-3) Al Hydroxide/Mg Hydroxide (Magnesium Hydrox/Alum Hydrox 30 Ml Oral.Susp) 30 ml PO Q6H PRN PRN Reason: Heartburn/Nausea Donepezil HCl (Donepezil Hcl 5 Mg Tablet) 5 mg PO BEDTIME TIMOTEO Last Admin: 02/14/22 21:56 Dose: Not Given Hydrochlorothiazide (Hydrochlorothiazide 12.5 Mg Tablet) 12.5 mg PO DAILY TIMOTEO; Protocol Last Admin: 02/15/22 10:38 Dose: Not Given Hydrocortisone (Hydrocortisone 1 % Cream 28.35 Gm Tube) 1 appl TOPICAL DAILY PRN PRN Reason: pruritic skin Hydroxyzine HCl (Hydroxyzine Hcl 25 Mg Tablet) 25 mg PO Q6H PRN PRN Reason: Anxiety Ketoconazole (Ketoconazole 2 % Shampoo 120 Ml Btl) 1 appl TOPICAL MoTh TIMOTEO; Protocol Last Admin: 02/13/22 14:55 Dose: Not Given Magnesium Hydroxide (Milk Of Magnesia 30 Ml Oral.Susp) 30 ml PO DAILY PRN PRN Reason: Constipation Olanzapine (Olanzapine 10 Mg Vial) 5 mg IM BEDTIME PRN PRN Reason: refusal of PO Last Admin: 01/24/22 22:11 Dose: 5 mg Olanzapine (Olanzapine 2.5 Mg Tablet) 2.5 mg PO BEDTIME TIMOTEO Last Admin: 02/14/22 21:55 Dose: 2.5 mg Trazodone HCl (Trazodone Hcl 50 Mg Tablet) 50 mg PO BEDTIME PRN PRN Reason: Insomnia Last Admin: 02/14/22 21:55 Dose: 50 mg Allergies Allergies Allergy/AdvReac Type Severity Reaction Status Date / Time codeine Allergy Unknown Unknown Verified 12/15/21 18:29 sulfadiazine Allergy Unknown Unknown Verified 12/15/21 18:29 Assessment & Plan Assessment & Plan (1) Psychosis: Status: Acute Code(s): F29 - Unspecified psychosis not due to a substance or known physiological condition Plan The patient is an elderly female, recently , with poor social support, no help from family or a with and says, admitted into the hospital for psychotic symptoms elicited by paranoia against a major of [facility], failure to thrive and hoarding. Please see the HPI of the admission note for further details. Currently on Section 7 and 8 since the patient wants to leave and does not have any insight into her condition. Plan 1. Continue with Zyprexa as per court order. 2. Guardianship paperwork since the patient cannot take informed decisions. 3. The oncologist already review her case due to the masses of her both lungs but the patient refused to have the procedure of biopsy. 4. MOLST will be discussed again and try to get it sign. Apparently the patient does not have capacity to take informed decisions regarding her MOLST. 5. We need a guardian so we can offer all the medical treatment that she needs at this moment so far, she has refused any treatment or diagnostic procedures for the nodules on her chest. 6. We had guardianship and a 2nd grade teacher was appointed. We will redirect the family to coordinate efforts. I spent ___20___ minutes with the patient and/or on the patient floor today, greater than?50% of which was spent counseling/coordinating care. Reason for contiued inpatient stay Substantial Risk for: inability to function, rapid decompensation and med/psych decompensation
[2022-02-15 18:00] VITALS: BP 192/81; PULSE 79; RESP 19; TEMP 36.9; O2SAT 94
[2022-02-15] MEDS: traZODone HCL 50 MG TABLET PO (20:13)
[2022-02-15] MEDS: OLANZapine 2.5 MG TABLET PO (20:13)
[2022-02-15] MEDS: hydroCHLOROthiazide 12.5 MG TABLET PO (20:13)
[2022-02-16] MEDS: hydroCHLOROthiazide 12.5 MG TABLET PO (10:17)
--- NOTE | 2022-02-16 12:45 | HO.PSYCHPN ---
Subjective Subjective Date of Service: 02/16/22 Reason For Visit: Mood Subjective Notes: Section 7 and Section 8 Interim History: The nursing staff reported the patient had been irritable with her peers. She ate 100% of her meals and she looks dysphoric. She was very upset since she is aware that there is a guardianship and most likely she will be placed. The staff reported the patient used a telephone call in all her relatives. Last night she refused Aricept and refused vital signs and medications in the morning. The social security specialist reported that yesterday we had a meeting with the business attorney to start discharge planning to senior living facility. I called her yesterday trying to explain her about the need of consent for a biopsy for treatment of the nodules in her lungs, left a message. On interview the patient is very upset and anxious knowing that she will probably lose her house. Mental Status Exam Mental Status Exam Patient Appearance: Appropriate Patient Orientation: Person and Situation Level of Consciousness: Awake Patient Behavior: Guarded and Suspicious Mood Description: Withdrawn Affect Description: Constricted Patient Cognition Impaired: Yes Ability to Follow Directions: Good Speech Pattern: Clear Hallucinations: None Delusions: Paranoid Ideation Thought Process: Distracted Thought Content: positive for Circumstantial and positive for Perseveration Judgement: Poor Diagnostics Vital Signs (24Hr): Vital Signs - 24 hr 02/15/22 18:00 Temperature 98.4 F Pulse Rate 79 Respiratory Rate 19 Blood Pressure 192/81 H Pulse Oximetry 94 Oxygen Delivery Method Room Air BMI result Body Mass Index 26.4 Labs Results: 01/20/22 08:00 01/20/22 08:00 Imaging Radiology Impressions: ITS Impressions Chest CT 01/10/22 15:11 IMPRESSION: Bilateral small pulmonary nodules, left greater than right. Biapical pleural and parenchymal scarring. 1.1 x 1.4 cm heterogeneous or semisolid right apical nodule, question related to pleural and parenchymal scarring. 1.5 cm partially calcified left thyroid nodule. Based on patient age in size, this does not meet criteria for follow-up. Moderate coronary artery calcification. Fleischner guidelines were followed. Medications Medications Current Medications Acetaminophen (Acetaminophen 325 Mg Tablet) 650 mg PO Q6H PRN PRN Reason: Headache/Pain Mild Scale (1-3) Al Hydroxide/Mg Hydroxide (Magnesium Hydrox/Alum Hydrox 30 Ml Oral.Susp) 30 ml PO Q6H PRN PRN Reason: Heartburn/Nausea Donepezil HCl (Donepezil Hcl 5 Mg Tablet) 5 mg PO BEDTIME TIMOTEO Last Admin: 02/15/22 21:46 Dose: Not Given Hydrochlorothiazide (Hydrochlorothiazide 12.5 Mg Tablet) 12.5 mg PO DAILY TIMOTEO; Protocol Last Admin: 02/16/22 10:17 Dose: 12.5 mg Hydrocortisone (Hydrocortisone 1 % Cream 28.35 Gm Tube) 1 appl TOPICAL DAILY PRN PRN Reason: pruritic skin Hydroxyzine HCl (Hydroxyzine Hcl 25 Mg Tablet) 25 mg PO Q6H PRN PRN Reason: Anxiety Ketoconazole (Ketoconazole 2 % Shampoo 120 Ml Btl) 1 appl TOPICAL MoTh TIMOTEO; Protocol Last Admin: 02/13/22 14:55 Dose: Not Given Magnesium Hydroxide (Milk Of Magnesia 30 Ml Oral.Susp) 30 ml PO DAILY PRN PRN Reason: Constipation Olanzapine (Olanzapine 10 Mg Vial) 5 mg IM BEDTIME PRN PRN Reason: refusal of PO Last Admin: 01/24/22 22:11 Dose: 5 mg Olanzapine (Olanzapine 2.5 Mg Tablet) 2.5 mg PO BEDTIME TIMOTEO Last Admin: 02/15/22 20:13 Dose: 2.5 mg Trazodone HCl (Trazodone Hcl 50 Mg Tablet) 50 mg PO BEDTIME PRN PRN Reason: Insomnia Last Admin: 02/15/22 20:13 Dose: 50 mg Allergies Allergies Allergy/AdvReac Type Severity Reaction Status Date / Time codeine Allergy Unknown Unknown Verified 12/15/21 18:29 sulfadiazine Allergy Unknown Unknown Verified 12/15/21 18:29 Assessment & Plan Assessment & Plan (1) Psychosis: Status: Acute Code(s): F29 - Unspecified psychosis not due to a substance or known physiological condition Plan The patient is an elderly female, recently , with poor social support, no help from family or a with and says, admitted into the hospital for psychotic symptoms elicited by paranoia against a major of was [place], failure to thrive and hoarding. Please see the HPI of the admission note for further details. Currently on Section 7 and 8 since the patient wants to leave and does not have any insight into her condition. Plan 1. Continue with Zyprexa as per court order. 2. Guardianship paperwork since the patient cannot take informed decisions. 3. The oncologist already review her case due to the masses of her both lungs but the patient refused to have the procedure of biopsy. 4. MOLST will be discussed again and try to get it sign. Apparently the patient does not have capacity to take informed decisions regarding her MOLST. 5. We need a guardian so we can offer all the medical treatment that she needs at this moment so far, she has refused any treatment or diagnostic procedures for the nodules on her chest. 6. We had guardianship and a food and beverage service manager was appointed. We will redirect the family to coordinate efforts. I called the low urine tried to explain her that we need a consent for a biopsy and start treatment for cancer if needed. I spent ___20___ minutes with the patient and/or on the patient floor today, greater than?50% of which was spent counseling/coordinating care. Reason for contiued inpatient stay Substantial Risk for: inability to function, rapid decompensation and med/psych decompensation
[2022-02-16 18:00] VITALS: BP 176/88; PULSE 72; RESP 15; TEMP 37.2; O2SAT 96
[2022-02-16] MEDS: OLANZapine 2.5 MG TABLET PO (19:41)
[2022-02-17 07:30] VITALS: BP 173/78; PULSE 74; RESP 16; TEMP 36.1; O2SAT 94
[2022-02-17] MEDS: hydroCHLOROthiazide 12.5 MG TABLET PO (10:43)
--- NOTE | 2022-02-17 13:23 | P.PNPSI_ITS ---
Subjective Subjective Date of Service: 02/17/22 Reason For Visit: Mood Subjective Notes: Section 7 and Section 8 Interim History: The nursing staff reported that the patient had been yelling over the phone. She is aware that now she has a guardian and she will be please most likely need half-way facility. Yesterday she was very angry with me when I explained her situation. She cannot remember that we have the same conversation every day. She has already written to me more than 5 letters with the same request to be discharged to her home. Today I called her guardian Loree Jackson at [phone] and we discussed the need of having a biopsy to have a clear diagnosis on the masses in her lungs. I inform also Dr. An and they will coordinate this procedure. On interview the patient remains angry with me stating that she wants to go home. She is unable to understand why she is here and that she needs a guardian. No insight into her condition Mental Status Exam Mental Status Exam Patient Appearance: Appropriate Patient Orientation: Person and Situation Level of Consciousness: Awake and Appropriate Patient Behavior: Guarded, Aggressive and Restless Mood Description: Withdrawn Affect Description: Labile Patient Cognition Impaired: Yes Ability to Follow Directions: Good Speech Pattern: Clear Hallucinations: None Delusions: Paranoid Ideation Thought Process: Distracted and Evasive Thought Content: positive for [place] and positive for Perseveration Judgement: Poor Diagnostics Vital Signs (24Hr): Vital Signs - 24 hr 02/16/22 18:00 Temperature 98.9 F Pulse Rate 72 Respiratory Rate 15 Blood Pressure 176/88 H Pulse Oximetry 96 Oxygen Delivery Method Room Air BMI result Body Mass Index 26.4 Labs Results: 01/20/22 08:00 01/20/22 08:00 Imaging Radiology Impressions: ITS Impressions Chest CT 01/10/22 15:11 IMPRESSION: Bilateral small pulmonary nodules, left greater than right. Biapical pleural and parenchymal scarring. 1.1 x 1.4 cm heterogeneous or semisolid right apical nodule, question related to pleural and parenchymal scarring. 1.5 cm partially calcified left thyroid nodule. Based on patient age in size, this does not meet criteria for follow-up. Moderate coronary artery calcification. Fleischner guidelines were followed. Medications Medications Current Medications Acetaminophen (Acetaminophen 325 Mg Tablet) 650 mg PO Q6H PRN PRN Reason: Headache/Pain Mild Scale (1-3) Al Hydroxide/Mg Hydroxide (Magnesium Hydrox/Alum Hydrox 30 Ml Oral.Susp) 30 ml PO Q6H PRN PRN Reason: Heartburn/Nausea Donepezil HCl (Donepezil Hcl 5 Mg Tablet) 5 mg PO BEDTIME TIMOTEO Last Admin: 02/16/22 19:43 Dose: Not Given Hydrochlorothiazide (Hydrochlorothiazide 12.5 Mg Tablet) 12.5 mg PO DAILY TIMOTEO; Protocol Last Admin: 02/17/22 10:43 Dose: 12.5 mg Hydrocortisone (Hydrocortisone 1 % Cream 28.35 Gm Tube) 1 appl TOPICAL DAILY PRN PRN Reason: pruritic skin Hydroxyzine HCl (Hydroxyzine Hcl 25 Mg Tablet) 25 mg PO Q6H PRN PRN Reason: Anxiety Ketoconazole (Ketoconazole 2 % Shampoo 120 Ml Btl) 1 appl TOPICAL MoTh TIMOTEO; Protocol Last Admin: 02/16/22 14:44 Dose: Not Given Magnesium Hydroxide (Milk Of Magnesia 30 Ml Oral.Susp) 30 ml PO DAILY PRN PRN Reason: Constipation Olanzapine (Olanzapine 2.5 Mg Tablet) 2.5 mg PO BID TIMOTEO Olanzapine (Olanzapine 10 Mg Vial) 5 mg IM BID PRN PRN Reason: refusal of PO Trazodone HCl (Trazodone Hcl 50 Mg Tablet) 50 mg PO BEDTIME PRN PRN Reason: Insomnia Last Admin: 02/15/22 20:13 Dose: 50 mg Allergies Allergies Allergy/AdvReac Type Severity Reaction Status Date / Time codeine Allergy Unknown Unknown Verified 12/15/21 18:29 sulfadiazine Allergy Unknown Unknown Verified 12/15/21 18:29 Assessment & Plan Assessment & Plan (1) Psychosis: Status: Acute Code(s): F29 - Unspecified psychosis not due to a substance or known physiological condition Plan The patient is an elderly female, recently , with poor social support, no help from family or a with and says, admitted into the hospital for psychotic symptoms elicited by paranoia against a major of was [place], failure to thrive and hoarding. Please see the HPI of the admission note for further details. Currently on Section 7 and 8 since the patient wants to leave and does not have any insight into her condition. Plan 1. Continue with Zyprexa as per court order. 2. Guardianship paperwork since the patient cannot take informed decisions. 3. The oncologist already review her case due to the masses of her both lungs but the patient refused to have the procedure of biopsy. 4. MOLST will be discussed again and try to get it sign. Apparently the patient does not have capacity to take informed decisions regarding her MOLST. 5. We need a guardian so we can offer all the medical treatment that she needs at this moment so far, she has refused any treatment or diagnostic procedures for the nodules on her chest. 6. We had guardianship and a production line welder was appointed. We will redirect the family to coordinate efforts. 7. I called today to her guardian and explained that she needs to have a biopsy, the guardian will sign the consent. I also inform Oncology about this. I provided information to Oncology Service. I spent ___20___ minutes with the patient and/or on the patient floor today, greater than?50% of which was spent counseling/coordinating care. Reason for contiued inpatient stay Substantial Risk for: inability to function, rapid decompensation and med/psych decompensation
[2022-02-17 18:00] VITALS: BP 160/82; PULSE 67; RESP 16; TEMP 36.4; O2SAT 95
[2022-02-17] MEDS: traZODone HCL 50 MG TABLET PO (19:49)
[2022-02-17] MEDS: OLANZapine 2.5 MG TABLET PO (19:49)
--- NOTE | 2022-02-18 01:51 | HO.PSYCHPN ---
Subjective Subjective Date of Service: 02/18/22 Reason For Visit: Mood Interim History: Spoke with pt, met with team. She has been med adherent but took some encouragement. Pt appears confused about her meds, says how come they want to give me 40 grams of zyprexa, now they want to increase it to 40 and theyre telling me all these things i cant do, they want to make me a zombie. Says she needs to talk to the SW. Has been reading the nyt, says this calms me down. Mental Status Exam Mental Status Exam Narrative: Patient Appearance: Appropriate Patient Orientation: Person and Situation Level of Consciousness: Awake and Appropriate Patient Behavior: Guarded, Aggressive and Restless Mood Description: Withdrawn Affect Description: Labile Patient Cognition Impaired: Yes Ability to Follow Directions: Good Speech Pattern: Clear Hallucinations: None Delusions: Paranoid Ideation Thought Process: Distracted and Evasive Thought Content: positive for [place] and positive for Perseveration Judgement: Poor Diagnostics Vital Signs (24Hr): Vital Signs - 24 hr 02/17/22 07:30 02/17/22 18:00 Temperature 97.0 F 97.5 F Pulse Rate 74 67 Respiratory Rate 16 16 Blood Pressure 173/78 H 160/82 H Pulse Oximetry 94 95 Oxygen Delivery Method Room Air Room Air BMI result Body Mass Index 26.4 Labs Results: 01/20/22 08:00 01/20/22 08:00 Imaging Radiology Impressions: ITS Impressions Chest CT 01/10/22 15:11 IMPRESSION: Bilateral small pulmonary nodules, left greater than right. Biapical pleural and parenchymal scarring. 1.1 x 1.4 cm heterogeneous or semisolid right apical nodule, question related to pleural and parenchymal scarring. 1.5 cm partially calcified left thyroid nodule. Based on patient age in size, this does not meet criteria for follow-up. Moderate coronary artery calcification. Fleischner guidelines were followed. Medications Medications Current Medications Acetaminophen (Acetaminophen 325 Mg Tablet) 650 mg PO Q6H PRN PRN Reason: Headache/Pain Mild Scale (1-3) Al Hydroxide/Mg Hydroxide (Magnesium Hydrox/Alum Hydrox 30 Ml Oral.Susp) 30 ml PO Q6H PRN PRN Reason: Heartburn/Nausea Donepezil HCl (Donepezil Hcl 5 Mg Tablet) 5 mg PO BEDTIME TIMOTEO Last Admin: 02/17/22 19:56 Dose: Not Given Hydrochlorothiazide (Hydrochlorothiazide 12.5 Mg Tablet) 12.5 mg PO DAILY TIMOTEO; Protocol Last Admin: 02/17/22 10:43 Dose: 12.5 mg Hydrocortisone (Hydrocortisone 1 % Cream 28.35 Gm Tube) 1 appl TOPICAL DAILY PRN PRN Reason: pruritic skin Hydroxyzine HCl (Hydroxyzine Hcl 25 Mg Tablet) 25 mg PO Q6H PRN PRN Reason: Anxiety Ketoconazole (Ketoconazole 2 % Shampoo 120 Ml Btl) 1 appl TOPICAL MoTh TIMOTEO; Protocol Last Admin: 02/16/22 14:44 Dose: Not Given Magnesium Hydroxide (Milk Of Magnesia 30 Ml Oral.Susp) 30 ml PO DAILY PRN PRN Reason: Constipation Olanzapine (Olanzapine 2.5 Mg Tablet) 2.5 mg PO BID TIMOTEO Last Admin: 02/17/22 19:49 Dose: 2.5 mg Olanzapine (Olanzapine 10 Mg Vial) 5 mg IM BID PRN PRN Reason: refusal of PO Trazodone HCl (Trazodone Hcl 50 Mg Tablet) 50 mg PO BEDTIME PRN PRN Reason: Insomnia Last Admin: 02/17/22 19:49 Dose: 50 mg Allergies Allergies Allergy/AdvReac Type Severity Reaction Status Date / Time codeine Allergy Unknown Unknown Verified 12/15/21 18:29 sulfadiazine Allergy Unknown Unknown Verified 12/15/21 18:29 Assessment & Plan Assessment & Plan (1) Psychosis: Status: Acute Code(s): F29 - Unspecified psychosis not due to a substance or known physiological condition Plan The patient is an elderly female, recently , with poor social support, no help from family or a with and says, admitted into the hospital for psychotic symptoms elicited by paranoia against a major of [facility], failure to thrive and hoarding. Please see the HPI of the admission note for further details. Currently on Section 7 and 8 since the patient wants to leave and does not have any insight into her condition. Plan 1. Continue with Zyprexa as per court order. 2. Guardianship paperwork since the patient cannot take informed decisions. 3. The oncologist already review her case due to the masses of her both lungs but the patient refused to have the procedure of biopsy. 4. MOLST will be discussed again and try to get it sign. Apparently the patient does not have capacity to take informed decisions regarding her MOLST. 5. We need a guardian so we can offer all the medical treatment that she needs at this moment so far, she has refused any treatment or diagnostic procedures for the nodules on her chest. 6. We had guardianship and a lithographic printing machinist was appointed. We will redirect the family to coordinate efforts. 7. I called today to her guardian and explained that she needs to have a biopsy, the guardian will sign the consent. I also inform Oncology about this. I provided information to Oncology Service. 02/18: no changes to tx plan I spent minutes with the patient and/or on the patient floor today, greater than?50% of which was spent counseling/coordinating care. Patient educated on: therapeutic strategies Reason for contiued inpatient stay Substantial Risk for: inability to function, rapid decompensation and med/psych decompensation
[2022-02-18] MEDS: OLANZapine 2.5 MG TABLET PO ×2 (11:06→21:33)
[2022-02-18] MEDS: hydroCHLOROthiazide 12.5 MG TABLET PO (11:06)
[2022-02-18 18:00] VITALS: BP 168/74; PULSE 76; RESP 16; TEMP 35.9; O2SAT 95
[2022-02-18] MEDS: traZODone HCL 50 MG TABLET PO (21:33)
[2022-02-19] MEDS: OLANZapine 2.5 MG TABLET PO ×2 (09:04→21:27)
[2022-02-19] MEDS: hydroCHLOROthiazide 12.5 MG TABLET PO (09:04)
--- NOTE | 2022-02-19 16:41 | P.PNPSI_ITS ---
Subjective Subjective Date of Service: 02/19/22 Reason For Visit: Mood Interim History: Spoke with pt and team. Pt at first does not want to check in, says Im busy with legal matters, but then able to answer questions, says Im doing okay. Pt has poor insight, says her primary psychiatrist thinks i have dementia, i think he has a screw loose. No questions or concerns. Mental Status Exam Mental Status Exam Narrative: Patient Appearance: Appropriate Patient Orientation: Person and Situation Level of Consciousness: Awake and Appropriate Patient Behavior: Guarded, Aggressive and Restless Mood Description: Withdrawn Affect Description: Labile Patient Cognition Impaired: Yes Ability to Follow Directions: Good Speech Pattern: Clear Hallucinations: None Delusions: Paranoid Ideation Thought Process: Distracted and Evasive Thought Content: positive for [place] and positive for Perseveration Judgement: Poor Diagnostics Vital Signs (24Hr): Vital Signs - 24 hr 02/18/22 18:00 Temperature 96.6 F L Pulse Rate 76 Respiratory Rate 16 Blood Pressure 168/74 H Pulse Oximetry 95 Oxygen Delivery Method Room Air BMI result Body Mass Index 26.4 Labs Results: 01/20/22 08:00 01/20/22 08:00 Imaging Radiology Impressions: ITS Impressions Chest CT 01/10/22 15:11 IMPRESSION: Bilateral small pulmonary nodules, left greater than right. Biapical pleural and parenchymal scarring. 1.1 x 1.4 cm heterogeneous or semisolid right apical nodule, question related to pleural and parenchymal scarring. 1.5 cm partially calcified left thyroid nodule. Based on patient age in size, this does not meet criteria for follow-up. Moderate coronary artery calcification. Fleischner guidelines were followed. Medications Medications Current Medications Acetaminophen (Acetaminophen 325 Mg Tablet) 650 mg PO Q6H PRN PRN Reason: Headache/Pain Mild Scale (1-3) Al Hydroxide/Mg Hydroxide (Magnesium Hydrox/Alum Hydrox 30 Ml Oral.Susp) 30 ml PO Q6H PRN PRN Reason: Heartburn/Nausea Donepezil HCl (Donepezil Hcl 5 Mg Tablet) 5 mg PO BEDTIME TIMOTEO Last Admin: 02/18/22 23:09 Dose: Not Given Hydrochlorothiazide (Hydrochlorothiazide 12.5 Mg Tablet) 12.5 mg PO DAILY TIMOTEO; Protocol Last Admin: 02/19/22 09:04 Dose: 12.5 mg Hydrocortisone (Hydrocortisone 1 % Cream 28.35 Gm Tube) 1 appl TOPICAL DAILY PRN PRN Reason: pruritic skin Hydroxyzine HCl (Hydroxyzine Hcl 25 Mg Tablet) 25 mg PO Q6H PRN PRN Reason: Anxiety Ketoconazole (Ketoconazole 2 % Shampoo 120 Ml Btl) 1 appl TOPICAL MoTh TIMOTEO; Protocol Last Admin: 02/16/22 14:44 Dose: Not Given Magnesium Hydroxide (Milk Of Magnesia 30 Ml Oral.Susp) 30 ml PO DAILY PRN PRN Reason: Constipation Olanzapine (Olanzapine 2.5 Mg Tablet) 2.5 mg PO BID TIMOTEO Last Admin: 02/19/22 09:04 Dose: 2.5 mg Olanzapine (Olanzapine 10 Mg Vial) 5 mg IM BID PRN PRN Reason: refusal of PO Trazodone HCl (Trazodone Hcl 50 Mg Tablet) 50 mg PO BEDTIME PRN PRN Reason: Insomnia Last Admin: 02/18/22 21:33 Dose: 50 mg Allergies Allergies Allergy/AdvReac Type Severity Reaction Status Date / Time codeine Allergy Unknown Unknown Verified 12/15/21 18:29 sulfadiazine Allergy Unknown Unknown Verified 12/15/21 18:29 Assessment & Plan Assessment & Plan (1) Psychosis: Status: Acute Code(s): F29 - Unspecified psychosis not due to a substance or known physiological condition Plan The patient is an elderly female, recently , with poor social support, no help from family or a with and says, admitted into the hospital for psychotic symptoms elicited by paranoia against a major of [facility], failure to thrive and hoarding. Please see the HPI of the admission note for further details. Currently on Section 7 and 8 since the patient wants to leave and does not have any insight into her condition. Plan 1. Continue with Zyprexa as per court order. 2. Guardianship paperwork since the patient cannot take informed decisions. 3. The oncologist already review her case due to the masses of her both lungs but the patient refused to have the procedure of biopsy. 4. MOLST will be discussed again and try to get it sign. Apparently the patient does not have capacity to take informed decisions regarding her MOLST. 5. We need a guardian so we can offer all the medical treatment that she needs at this moment so far, she has refused any treatment or diagnostic procedures for the nodules on her chest. 6. We had guardianship and a control clerk food and beverage was appointed. We will redirect the family to coordinate efforts. 7. I called today to her guardian and explained that she needs to have a biopsy, the guardian will sign the consent. I also inform Oncology about this. I provided information to Oncology Service. 02/18: no changes to tx plan 02/19: no changes to tx plan I spent minutes with the patient and/or on the patient floor today, greater than?50% of which was spent counseling/coordinating care. Patient educated on: therapeutic strategies Reason for contiued inpatient stay Substantial Risk for: inability to function, rapid decompensation and med/psych decompensation
[2022-02-19 18:00] VITALS: BP 150/90; PULSE 73; RESP 18; TEMP 36.6; O2SAT 93
[2022-02-19] MEDS: traZODone HCL 50 MG TABLET PO (21:27)
[2022-02-19] MEDS: Donepezil HCl 5 MG TABLET PO (21:27)
[2022-02-20 10:15] VITALS: BP 117/73; PULSE 77; RESP 16; TEMP 36.7; O2SAT 96
[2022-02-20] MEDS: hydroCHLOROthiazide 12.5 MG TABLET PO (10:58)
[2022-02-20] MEDS: OLANZapine 2.5 MG TABLET PO ×2 (10:58→21:00)
--- NOTE | 2022-02-20 12:51 | P.PNPSI_ITS ---
Subjective Subjective Date of Service: 02/20/22 Reason For Visit: Mood Subjective Notes: Section 7 and Section 8 Interim History: The nursing staff reported the patient was agitated sings she was receiving the room meal. The social media senior associate in emailed the guardian regarding her status. Last Sunday I could talk with the guardian and explained her the need of having a biopsy more to figure it out the diagnosis of does not mar[place]. I provide also the same information to the oncology service. On interview the patient cannot remember that we had a previous discussion and she does not have any insight into her condition or limitations. Mental Status Exam Mental Status Exam Patient Appearance: Well Grooomed Patient Orientation: Person and Situation Level of Consciousness: Awake and Appropriate Patient Behavior: Guarded and Passive Mood Description: Withdrawn Affect Description: Constricted Patient Cognition Impaired: Yes Ability to Follow Directions: Good Speech Pattern: Clear Hallucinations: None Delusions: Paranoid Ideation Thought Process: Distracted Thought Content: positive for Circumstantial Judgement: Poor Diagnostics Vital Signs (24Hr): Vital Signs - 24 hr 02/19/22 18:00 02/20/22 10:15 Temperature 97.8 F 98.1 F Pulse Rate 73 77 Respiratory Rate 18 16 Blood Pressure 150/90 H 117/73 Pulse Oximetry 93 96 Oxygen Delivery Method Room Air Room Air BMI result Body Mass Index 26.4 Labs Results: 01/20/22 08:00 01/20/22 08:00 Imaging Radiology Impressions: ITS Impressions Chest CT 01/10/22 15:11 IMPRESSION: Bilateral small pulmonary nodules, left greater than right. Biapical pleural and parenchymal scarring. 1.1 x 1.4 cm heterogeneous or semisolid right apical nodule, question related to pleural and parenchymal scarring. 1.5 cm partially calcified left thyroid nodule. Based on patient age in size, this does not meet criteria for follow-up. Moderate coronary artery calcification. Fleischner guidelines were followed. Medications Medications Current Medications Acetaminophen (Acetaminophen 325 Mg Tablet) 650 mg PO Q6H PRN PRN Reason: Headache/Pain Mild Scale (1-3) Al Hydroxide/Mg Hydroxide (Magnesium Hydrox/Alum Hydrox 30 Ml Oral.Susp) 30 ml PO Q6H PRN PRN Reason: Heartburn/Nausea Donepezil HCl (Donepezil Hcl 5 Mg Tablet) 5 mg PO BEDTIME TIMOTEO Last Admin: 02/19/22 21:27 Dose: 5 mg Hydrochlorothiazide (Hydrochlorothiazide 12.5 Mg Tablet) 12.5 mg PO DAILY TIMOTEO; Protocol Last Admin: 02/20/22 10:58 Dose: 12.5 mg Hydrocortisone (Hydrocortisone 1 % Cream 28.35 Gm Tube) 1 appl TOPICAL DAILY PRN PRN Reason: pruritic skin Hydroxyzine HCl (Hydroxyzine Hcl 25 Mg Tablet) 25 mg PO Q6H PRN PRN Reason: Anxiety Ketoconazole (Ketoconazole 2 % Shampoo 120 Ml Btl) 1 appl TOPICAL MoTh TIMOTEO; Protocol Last Admin: 02/16/22 14:44 Dose: Not Given Magnesium Hydroxide (Milk Of Magnesia 30 Ml Oral.Susp) 30 ml PO DAILY PRN PRN Reason: Constipation Olanzapine (Olanzapine 2.5 Mg Tablet) 2.5 mg PO BID TIMOTEO Last Admin: 02/20/22 10:58 Dose: 2.5 mg Olanzapine (Olanzapine 10 Mg Vial) 5 mg IM BID PRN PRN Reason: refusal of PO Trazodone HCl (Trazodone Hcl 50 Mg Tablet) 50 mg PO BEDTIME PRN PRN Reason: Insomnia Last Admin: 02/19/22 21:27 Dose: 50 mg Allergies Allergies Allergy/AdvReac Type Severity Reaction Status Date / Time codeine Allergy Unknown Unknown Verified 12/15/21 18:29 sulfadiazine Allergy Unknown Unknown Verified 12/15/21 18:29 Assessment & Plan Assessment & Plan (1) Psychosis: Status: Acute Code(s): F29 - Unspecified psychosis not due to a substance or known physiological condition Plan The patient is an elderly female, recently , with poor social support, no help from family or a with and says, admitted into the hospital for psychotic symptoms elicited by paranoia against a major of [facility], ailure to thrive and hoarding. Please see the HPI of the admission note for further details. Currently on Section 7 and 8 since the patient wants to leave and does not have any insight into her condition. Plan 1. Continue with Zyprexa as per court order. 2. Guardianship paperwork since the patient cannot take informed decisions. 3. The oncologist already review her case due to the masses of her both lungs but the patient refused to have the procedure of biopsy. 4. MOLST will be discussed again and try to get it sign. Apparently the patient does not have capacity to take informed decisions regarding her MOLST. 5. We need a guardian so we can offer all the medical treatment that she needs at this moment so far, she has refused any treatment or diagnostic procedures for the nodules on her chest. 6. We had guardianship and a fluid power mechanic was appointed. We will redirect the family to coordinate efforts. 7. I called today to her guardian and explained that she needs to have a biopsy, the guardian will sign the consent. I also inform Oncology about this. I provided information to Oncology Service. 8. Waiting for the guardian to sign consents and start the workout. I spent __20____ minutes with the patient and/or on the patient floor today, greater than?50% of which was spent counseling/coordinating care. Reason for contiued inpatient stay Substantial Risk for: inability to function, rapid decompensation and med/psych decompensation
[2022-02-20 18:00] VITALS: BP 151/76; PULSE 82; RESP 16; TEMP 36.6; O2SAT 94
[2022-02-20] MEDS: Donepezil HCl 5 MG TABLET PO (21:00)
[2022-02-20] MEDS: traZODone HCL 50 MG TABLET PO (21:00)
[2022-02-21] MEDS: hydroCHLOROthiazide 12.5 MG TABLET PO (09:04)
[2022-02-21] MEDS: OLANZapine 2.5 MG TABLET PO ×3 (09:04→21:19)
--- NOTE | 2022-02-21 13:57 | P.PNPSI_ITS ---
Subjective Subjective Date of Service: 02/21/22 Reason For Visit: Mood Subjective Notes: Section 7 and Section 8 Interim History: The nursing staff reported the patient had been over-sedated with Zyprexa in the morning. She has been eating 100% of her meals and she slept 6 hours. She took trazodone 9 cm. The clinical social work aide reported that she try to communicate with her guardian regarding coordination of care. On interview the patient remains with poor short-term memory unable to remember the discussion of the day before. We will change the Zyprexa from 2.5 mg in the morning to 17:00. Mental Status Exam Mental Status Exam Patient Appearance: Appropriate Patient Orientation: Person and Situation Level of Consciousness: Awake Patient Behavior: Guarded and Passive Mood Description: Withdrawn Affect Description: Labile Patient Cognition Impaired: Yes Ability to Follow Directions: Fair Speech Pattern: Clear Hallucinations: None Delusions: Not Present Thought Process: Distracted Thought Content: positive for [place] and positive for Perseveration Judgement: Fair Diagnostics Vital Signs (24Hr): Vital Signs - 24 hr 02/20/22 18:00 Temperature 97.8 F Pulse Rate 82 Respiratory Rate 16 Blood Pressure 151/76 H Pulse Oximetry 94 Oxygen Delivery Method Room Air BMI result Body Mass Index 26.4 Labs Results: 01/20/22 08:00 01/20/22 08:00 Imaging Radiology Impressions: ITS Impressions Chest CT 01/10/22 15:11 IMPRESSION: Bilateral small pulmonary nodules, left greater than right. Biapical pleural and parenchymal scarring. 1.1 x 1.4 cm heterogeneous or semisolid right apical nodule, question related to pleural and parenchymal scarring. 1.5 cm partially calcified left thyroid nodule. Based on patient age in size, this does not meet criteria for follow-up. Moderate coronary artery calcification. Fleischner guidelines were followed. Medications Medications Current Medications Acetaminophen (Acetaminophen 325 Mg Tablet) 650 mg PO Q6H PRN PRN Reason: Headache/Pain Mild Scale (1-3) Al Hydroxide/Mg Hydroxide (Magnesium Hydrox/Alum Hydrox 30 Ml Oral.Susp) 30 ml PO Q6H PRN PRN Reason: Heartburn/Nausea Donepezil HCl (Donepezil Hcl 5 Mg Tablet) 5 mg PO BEDTIME TIMOTEO Last Admin: 02/20/22 21:00 Dose: 5 mg Hydrochlorothiazide (Hydrochlorothiazide 12.5 Mg Tablet) 12.5 mg PO DAILY TIMOTEO; Protocol Last Admin: 02/21/22 09:04 Dose: 12.5 mg Hydrocortisone (Hydrocortisone 1 % Cream 28.35 Gm Tube) 1 appl TOPICAL DAILY PRN PRN Reason: pruritic skin Hydroxyzine HCl (Hydroxyzine Hcl 25 Mg Tablet) 25 mg PO Q6H PRN PRN Reason: Anxiety Ketoconazole (Ketoconazole 2 % Shampoo 120 Ml Btl) 1 appl TOPICAL MoTh TIMOTEO; Protocol Last Admin: 02/20/22 14:02 Dose: Not Given Magnesium Hydroxide (Milk Of Magnesia 30 Ml Oral.Susp) 30 ml PO DAILY PRN PRN Reason: Constipation Olanzapine (Olanzapine 10 Mg Vial) 5 mg IM BID PRN PRN Reason: refusal of PO Olanzapine (Olanzapine 2.5 Mg Tablet) 2.5 mg PO BEDTIME TIMOTEO Olanzapine (Olanzapine 2.5 Mg Tablet) 2.5 mg PO DAILY@1700 TIMOTEO Trazodone HCl (Trazodone Hcl 50 Mg Tablet) 50 mg PO BEDTIME PRN PRN Reason: Insomnia Last Admin: 02/20/22 21:00 Dose: 50 mg Allergies Allergies Allergy/AdvReac Type Severity Reaction Status Date / Time codeine Allergy Unknown Unknown Verified 12/15/21 18:29 sulfadiazine Allergy Unknown Unknown Verified 12/15/21 18:29 Assessment & Plan Assessment & Plan (1) Psychosis: Status: Acute Code(s): F29 - Unspecified psychosis not due to a substance or known physiological condition Plan The patient is an elderly female, recently , with poor social support, no help from family or a with and says, admitted into the hospital for psychotic symptoms elicited by paranoia against a major of [facility], failure to thrive and hoarding. Please see the HPI of the admission note for further details. Currently on Section 7 and 8 since the patient wants to leave and does not have any insight into her condition. Plan 1. Continue with Zyprexa as per court order. 2. Guardianship paperwork since the patient cannot take informed decisions. 3. The oncologist already review her case due to the masses of her both lungs but the patient refused to have the procedure of biopsy. 4. MOLST will be discussed again and try to get it sign. Apparently the patient does not have capacity to take informed decisions regarding her MOLST. 5. We need a guardian so we can offer all the medical treatment that she needs at this moment so far, she has refused any treatment or diagnostic procedures for the nodules on her chest. 6. We had guardianship and a spice miller hammer mill was appointed. We will redirect the family to coordinate efforts. 7. I called today to her guardian and explained that she needs to have a biopsy, the guardian will sign the consent. I also inform Oncology about this. I provided information to Oncology Service. 8. Waiting for the guardian to sign consents and start the workout. 9. Zyprexa 2.5 mg p.o. b.i.d. at 17:00 and 21:00. I spent ___20___ minutes with the patient and/or on the patient floor today, greater than?50% of which was spent counseling/coordinating care. Reason for contiued inpatient stay Substantial Risk for: inability to function, rapid decompensation and med/psych decompensation
[2022-02-21 18:00] VITALS: BP 140/68; PULSE 69; RESP 15; TEMP 36.7; O2SAT 95
[2022-02-22 08:00] VITALS: BP 159/70; PULSE 87; RESP 16; TEMP 35.7; O2SAT 94
[2022-02-22] MEDS: hydroCHLOROthiazide 12.5 MG TABLET PO (09:27)
--- NOTE | 2022-02-22 13:05 | P.PNPSI_ITS ---
Subjective Subjective Date of Service: 02/22/22 Reason For Visit: Mood Subjective Notes: Conditional Voluntary Interim History: The nursing staff reported the patient had been compliant with Zyprexa as per court order. The staff has noticed that she was over-sedated since Zyprexa was started in the morning so we change it in the evening to avoid ing. On interview the patient denies new symptoms she wants to go home, unable to understand why she is here. She adamantly denies having any psychiatric illness and she minimized her cognitive impairment. Mental Status Exam Mental Status Exam Patient Appearance: Appropriate Patient Orientation: Person and Situation Level of Consciousness: Awake Patient Behavior: Guarded and Passive Mood Description: Withdrawn Affect Description: Constricted Patient Cognition Impaired: Yes Ability to Follow Directions: Fair Speech Pattern: Clear Hallucinations: None Delusions: Paranoid Ideation Thought Process: Distracted Thought Content: positive for [place], positive for Obsessional Thoughts, positive for Perseveration and positive for Poverty of Content Judgement: Fair Diagnostics Vital Signs (24Hr): Vital Signs - 24 hr 02/21/22 18:00 Temperature 98.1 F Pulse Rate 69 Respiratory Rate 15 Blood Pressure 140/68 H Pulse Oximetry 95 Oxygen Delivery Method Room Air BMI result Body Mass Index 26.4 Labs Results: 01/20/22 08:00 01/20/22 08:00 Imaging Radiology Impressions: ITS Impressions Chest CT 01/10/22 15:11 IMPRESSION: Bilateral small pulmonary nodules, left greater than right. Biapical pleural and parenchymal scarring. 1.1 x 1.4 cm heterogeneous or semisolid right apical nodule, question related to pleural and parenchymal scarring. 1.5 cm partially calcified left thyroid nodule. Based on patient age in size, this does not meet criteria for follow-up. Moderate coronary artery calcification. Fleischner guidelines were followed. Medications Medications Current Medications Acetaminophen (Acetaminophen 325 Mg Tablet) 650 mg PO Q6H PRN PRN Reason: Headache/Pain Mild Scale (1-3) Al Hydroxide/Mg Hydroxide (Magnesium Hydrox/Alum Hydrox 30 Ml Oral.Susp) 30 ml PO Q6H PRN PRN Reason: Heartburn/Nausea Donepezil HCl (Donepezil Hcl 5 Mg Tablet) 5 mg PO BEDTIME TIMOTEO Last Admin: 02/21/22 21:40 Dose: Not Given Hydrochlorothiazide (Hydrochlorothiazide 12.5 Mg Tablet) 12.5 mg PO DAILY TIMOTEO; Protocol Last Admin: 02/22/22 09:27 Dose: 12.5 mg Hydrocortisone (Hydrocortisone 1 % Cream 28.35 Gm Tube) 1 appl TOPICAL DAILY PRN PRN Reason: pruritic skin Hydroxyzine HCl (Hydroxyzine Hcl 25 Mg Tablet) 25 mg PO Q6H PRN PRN Reason: Anxiety Ketoconazole (Ketoconazole 2 % Shampoo 120 Ml Btl) 1 appl TOPICAL MoTh TIMOTEO; Protocol Last Admin: 02/20/22 14:02 Dose: Not Given Magnesium Hydroxide (Milk Of Magnesia 30 Ml Oral.Susp) 30 ml PO DAILY PRN PRN Reason: Constipation Olanzapine (Olanzapine 10 Mg Vial) 5 mg IM BID PRN PRN Reason: refusal of PO Olanzapine (Olanzapine 2.5 Mg Tablet) 2.5 mg PO BEDTIME TIMOTEO Last Admin: 02/21/22 21:19 Dose: 2.5 mg Olanzapine (Olanzapine 2.5 Mg Tablet) 2.5 mg PO DAILY@1700 TIMOTEO Last Admin: 02/21/22 17:22 Dose: 2.5 mg Trazodone HCl (Trazodone Hcl 50 Mg Tablet) 50 mg PO BEDTIME PRN PRN Reason: Insomnia Last Admin: 02/20/22 21:00 Dose: 50 mg Allergies Allergies Allergy/AdvReac Type Severity Reaction Status Date / Time codeine Allergy Unknown Unknown Verified 12/15/21 18:29 sulfadiazine Allergy Unknown Unknown Verified 12/15/21 18:29 Assessment & Plan Assessment & Plan (1) Psychosis: Status: Acute Code(s): F29 - Unspecified psychosis not due to a substance or known physiological condition Plan The patient is an elderly female, recently , with poor social support, no help from family or a with and says, admitted into the hospital for psychotic symptoms elicited by paranoia against a major of [facility], failure to thrive and hoarding. Please see the HPI of the admission note for further details. Currently on Section 7 and 8 since the patient wants to leave and does not have any insight into her condition. Plan 1. Continue with Zyprexa as per court order. 2. Guardianship paperwork since the patient cannot take informed decisions. 3. The oncologist already review her case due to the masses of her both lungs but the patient refused to have the procedure of biopsy. 4. MOLST will be discussed again and try to get it sign. Apparently the patient does not have capacity to take informed decisions regarding her MOLST. 5. We need a guardian so we can offer all the medical treatment that she needs at this moment so far, she has refused any treatment or diagnostic procedures for the nodules on her chest. 6. We had guardianship and a molder setter was appointed. We will redirect the family to coordinate efforts. 7. I called today to her guardian and explained that she needs to have a biopsy, the guardian will sign the consent. I also inform Oncology about this. I provided information to Oncology Service. 8. Waiting for the guardian to sign consents and start the workout. 9. Zyprexa 2.5 mg p.o. b.i.d. at 17:00 and 21:00. I spent __20____ minutes with the patient and/or on the patient floor today, greater than?50% of which was spent counseling/coordinating care. Reason for contiued inpatient stay Substantial Risk for: inability to function, rapid decompensation and med/psych decompensation
[2022-02-22] MEDS: OLANZapine 2.5 MG TABLET PO ×2 (17:27→21:14)
[2022-02-22 18:00] VITALS: BP 176/81; PULSE 74; RESP 20; TEMP 36.8; O2SAT 97
[2022-02-22] MEDS: traZODone HCL 50 MG TABLET PO (21:14)
[2022-02-22] MEDS: Donepezil HCl 5 MG TABLET PO (21:14)
--- NOTE | 2022-02-23 08:28 | HO.PSYCHPN ---
Subjective Subjective Date of Service: 02/23/22 Reason For Visit: Mood Subjective Notes: Section 7 and Section 8 Interim History: The nursing staff reported the patient had been focusing on a list of reports that she has. She stated that she has a soon meeting with her guarded the 10:00 o'clock in the morning and she had been asking for stationary. The guardian reported to the staff that the patient has some money safe but she has a lot of debt and her house is in a very poor condition. Last night, she took voluntarily her Aricept, very unusual. On interview the patient remains with poor short-term memory, focused on discharge and her house. She had the Zoom meeting with her guardian. The SW reported that probably we can start referrals soon. Mental Status Exam Mental Status Exam Patient Appearance: Appropriate Patient Orientation: Person and Situation Level of Consciousness: Awake and Disoriented Patient Behavior: Guarded and Suspicious Mood Description: Withdrawn Affect Description: Labile Patient Cognition Impaired: Yes Ability to Follow Directions: Fair Speech Pattern: Clear Hallucinations: None Delusions: Paranoid Ideation Thought Process: Distracted and Evasive Thought Content: positive for [place], positive for Obsessional Thoughts and positive for Perseveration Judgement: Poor Diagnostics Vital Signs (24Hr): Vital Signs - 24 hr 02/22/22 18:00 Temperature 98.3 F Pulse Rate 74 Respiratory Rate 20 Blood Pressure 176/81 H Pulse Oximetry 97 Oxygen Delivery Method Room Air BMI result Body Mass Index 26.4 Labs Results: 01/20/22 08:00 01/20/22 08:00 Imaging Radiology Impressions: ITS Impressions Chest CT 01/10/22 15:11 IMPRESSION: Bilateral small pulmonary nodules, left greater than right. Biapical pleural and parenchymal scarring. 1.1 x 1.4 cm heterogeneous or semisolid right apical nodule, question related to pleural and parenchymal scarring. 1.5 cm partially calcified left thyroid nodule. Based on patient age in size, this does not meet criteria for follow-up. Moderate coronary artery calcification. Fleischner guidelines were followed. Medications Medications Current Medications Acetaminophen (Acetaminophen 325 Mg Tablet) 650 mg PO Q6H PRN PRN Reason: Headache/Pain Mild Scale (1-3) Al Hydroxide/Mg Hydroxide (Magnesium Hydrox/Alum Hydrox 30 Ml Oral.Susp) 30 ml PO Q6H PRN PRN Reason: Heartburn/Nausea Donepezil HCl (Donepezil Hcl 5 Mg Tablet) 5 mg PO BEDTIME TIMOTEO Last Admin: 02/22/22 21:14 Dose: 5 mg Hydrochlorothiazide (Hydrochlorothiazide 12.5 Mg Tablet) 12.5 mg PO DAILY TIMOTEO; Protocol Last Admin: 02/22/22 09:27 Dose: 12.5 mg Hydrocortisone (Hydrocortisone 1 % Cream 28.35 Gm Tube) 1 appl TOPICAL DAILY PRN PRN Reason: pruritic skin Hydroxyzine HCl (Hydroxyzine Hcl 25 Mg Tablet) 25 mg PO Q6H PRN PRN Reason: Anxiety Ketoconazole (Ketoconazole 2 % Shampoo 120 Ml Btl) 1 appl TOPICAL MoTh TIMOTEO; Protocol Last Admin: 02/20/22 14:02 Dose: Not Given Magnesium Hydroxide (Milk Of Magnesia 30 Ml Oral.Susp) 30 ml PO DAILY PRN PRN Reason: Constipation Olanzapine (Olanzapine 10 Mg Vial) 5 mg IM BID PRN PRN Reason: refusal of PO Olanzapine (Olanzapine 2.5 Mg Tablet) 2.5 mg PO BEDTIME TIMOTEO Last Admin: 02/22/22 21:14 Dose: 2.5 mg Olanzapine (Olanzapine 2.5 Mg Tablet) 2.5 mg PO DAILY@1700 [facility] Last Admin: 02/22/22 17:27 Dose: 2.5 mg Trazodone HCl (Trazodone Hcl 50 Mg Tablet) 50 mg PO BEDTIME PRN PRN Reason: Insomnia Last Admin: 02/22/22 21:14 Dose: 50 mg Allergies Allergies Allergy/AdvReac Type Severity Reaction Status Date / Time codeine Allergy Unknown Unknown Verified 12/15/21 18:29 sulfadiazine Allergy Unknown Unknown Verified 12/15/21 18:29 Assessment & Plan Assessment & Plan (1) Psychosis: Status: Acute Code(s): F29 - Unspecified psychosis not due to a substance or known physiological condition Plan The patient is an elderly female, recently , with poor social support, no help from family or a with and says, admitted into the hospital for psychotic symptoms elicited by paranoia against a major of was [place], failure to thrive and hoarding. Please see the HPI of the admission note for further details. Currently on Section 7 and 8 since the patient wants to leave and does not have any insight into her condition. Plan 1. Continue with Zyprexa as per court order. 2. Guardianship paperwork since the patient cannot take informed decisions. 3. The oncologist already review her case due to the masses of her both lungs but the patient refused to have the procedure of biopsy. 4. MOLST will be discussed again and try to get it sign. Apparently the patient does not have capacity to take informed decisions regarding her MOLST. 5. We need a guardian so we can offer all the medical treatment that she needs at this moment so far, she has refused any treatment or diagnostic procedures for the nodules on her chest. 6. We had guardianship and a network diagnostic support specialist was appointed. We will redirect the family to coordinate efforts. 7. I called today to her guardian and explained that she needs to have a biopsy, the guardian will sign the consent. I also inform Oncology about this. I provided information to Oncology Service. 8. Waiting for the guardian to sign consents and start the workout. 9. Zyprexa 2.5 mg p.o. b.i.d. at 17:00 and 21:00. I spent ___20___ minutes with the patient and/or on the patient floor today, greater than?50% of which was spent counseling/coordinating care. Reason for contiued inpatient stay Substantial Risk for: inability to function, rapid decompensation and med/psych decompensation
[2022-02-23] MEDS: hydroCHLOROthiazide 12.5 MG TABLET PO (09:37)
[2022-02-23] MEDS: OLANZapine 2.5 MG TABLET PO ×2 (16:43→20:40)
[2022-02-23 18:00] VITALS: BP 184/84; PULSE 75; RESP 18; TEMP 36.3; O2SAT 97
[2022-02-23] MEDS: Donepezil HCl 5 MG TABLET PO (20:40)
[2022-02-23] MEDS: traZODone HCL 50 MG TABLET PO (20:40)
[2022-02-24 08:35] VITALS: BP 157/72; PULSE 74; RESP 18; TEMP 36.4; O2SAT 98
[2022-02-24] MEDS: hydroCHLOROthiazide 12.5 MG TABLET PO (10:41)
--- NOTE | 2022-02-24 12:20 | P.PNPSI_ITS ---
Subjective Subjective Date of Service: 02/24/22 Reason For Visit: Mood Subjective Notes: Section 7 and Section 8 Interim History: The nursing staff reported the patient denies anxiety or depression. Yesterday her cousin came and visited and she was talkative. She is writing letters and she had a meeting with her guardian. They are trying to avoid her house to be condemned. The guardian has spoken with the social service manager and authorized to start doing referals to [facility]. On interview the patient denies new symptoms she cannot remember the previous discussion but she is aware that we are trying to help her to avoid losing her property. Mental Status Exam Mental Status Exam Patient Appearance: Appropriate Patient Orientation: Person Level of Consciousness: Awake Patient Behavior: Guarded and Talkative Mood Description: Withdrawn Affect Description: Labile Patient Cognition Impaired: Yes Ability to Follow Directions: Good Speech Pattern: Clear Hallucinations: None Delusions: Paranoid Ideation Thought Process: Illogical and Distracted Thought Content: positive for [place], positive for Persever[place] and positive for Poverty of Content Judgement: Poor Diagnostics Vital Signs (24Hr): Vital Signs - 24 hr 02/23/22 18:00 Temperature 97.4 F Pulse Rate 75 Respiratory Rate 18 Blood Pressure 184/84 H Pulse Oximetry 97 Oxygen Delivery Method Room Air BMI result Body Mass Index 26.4 Labs Results: 01/20/22 08:00 01/20/22 08:00 Imaging Radiology Impressions: ITS Impressions Chest CT 01/10/22 15:11 IMPRESSION: Bilateral small pulmonary nodules, left greater than right. Biapical pleural and parenchymal scarring. 1.1 x 1.4 cm heterogeneous or semisolid right apical nodule, question related to pleural and parenchymal scarring. 1.5 cm partially calcified left thyroid nodule. Based on patient age in size, this does not meet criteria for follow-up. Moderate coronary artery calcification. Fleischner guidelines were followed. Medications Medications Current Medications Acetaminophen (Acetaminophen 325 Mg Tablet) 650 mg PO Q6H PRN PRN Reason: Headache/Pain Mild Scale (1-3) Al Hydroxide/Mg Hydroxide (Magnesium Hydrox/Alum Hydrox 30 Ml Oral.Susp) 30 ml PO Q6H PRN PRN Reason: Heartburn/Nausea Donepezil HCl (Donepezil Hcl 5 Mg Tablet) 5 mg PO BEDTIME TIMOTEO Last Admin: 02/23/22 20:40 Dose: 5 mg Hydrochlorothiazide (Hydrochlorothiazide 12.5 Mg Tablet) 12.5 mg PO DAILY TIMOTEO; Protocol Last Admin: 02/24/22 10:41 Dose: 12.5 mg Hydrocortisone (Hydrocortisone 1 % Cream 28.35 Gm Tube) 1 appl TOPICAL DAILY PRN PRN Reason: pruritic skin Hydroxyzine HCl (Hydroxyzine Hcl 25 Mg Tablet) 25 mg PO Q6H PRN PRN Reason: Anxiety Ketoconazole (Ketoconazole 2 % Shampoo 120 Ml Btl) 1 appl TOPICAL MoTh TIMOTEO; Protocol Last Admin: 02/23/22 13:39 Dose: Not Given Magnesium Hydroxide (Milk Of Magnesia 30 Ml Oral.Susp) 30 ml PO DAILY PRN PRN Reason: Constipation Olanzapine (Olanzapine 10 Mg Vial) 5 mg IM BID PRN PRN Reason: refusal of PO Olanzapine (Olanzapine 2.5 Mg Tablet) 2.5 mg PO BEDTIME TIMOTEO Last Admin: 02/23/22 20:40 Dose: 2.5 mg Olanzapine (Olanzapine 2.5 Mg Tablet) 2.5 mg PO DAILY@1700 [facility] Last Admin: 02/23/22 16:43 Dose: 2.5 mg Trazodone HCl (Trazodone Hcl 50 Mg Tablet) 50 mg PO BEDTIME PRN PRN Reason: Insomnia Last Admin: 02/23/22 20:40 Dose: 50 mg Allergies Allergies Allergy/AdvReac Type Severity Reaction Status Date / Time codeine Allergy Unknown Unknown Verified 12/15/21 18:29 sulfadiazine Allergy Unknown Unknown Verified 12/15/21 18:29 Assessment & Plan Assessment & Plan (1) Psychosis: Status: Acute Code(s): F29 - Unspecified psychosis not due to a substance or known physiological condition Plan The patient is an elderly female, recently , with poor social support, no help from family or a with and says, admitted into the hospital for psychotic symptoms elicited by paranoia against a major of was [place], failure to thrive and hoarding. Please see the HPI of the admission note for further details. Currently on Section 7 and 8 since the patient wants to leave and does not have any insight into her condition. Plan 1. Continue with Zyprexa as per court order. 2. Guardianship paperwork since the patient cannot take informed decisions. 3. The oncologist already review her case due to the masses of her both lungs but the patient refused to have the procedure of biopsy. 4. MOLST will be discussed again and try to get it sign. Apparently the patient does not have capacity to take informed decisions regarding her MOLST. 5. We need a guardian so we can offer all the medical treatment that she needs at this moment so far, she has refused any treatment or diagnostic procedures for the nodules on her chest. 6. We had guardianship and a cleaner laboratory equipment was appointed. We will redirect the family to coordinate efforts. 7. I called today to her guardian and explained that she needs to have a biopsy, the guardian will sign the consent. I also inform Oncology about this. I provided information to Oncology Service. 8. Waiting for the guardian to sign consents and start the workout. 9. Zyprexa 2.5 mg p.o. b.i.d. at 17:00 and 21:00. I spent ___20___ minutes with the patient and/or on the patient floor today, greater than?50% of which was spent counseling/coordinating care. Reason for contiued inpatient stay Substantial Risk for: inability to function, rapid decompensation and med/psych decompensation
[2022-02-24] MEDS: OLANZapine 2.5 MG TABLET PO ×2 (16:46→20:08)
[2022-02-24 18:00] VITALS: BP 176/75; PULSE 70; RESP 16; TEMP 36.2; O2SAT 95
[2022-02-24] MEDS: Donepezil HCl 5 MG TABLET PO (20:08)
[2022-02-24] MEDS: traZODone HCL 50 MG TABLET PO (20:08)
[2022-02-25] MEDS: hydroCHLOROthiazide 12.5 MG TABLET PO (11:00)
[2022-02-25 11:20] VITALS: BP 139/96; PULSE 76; RESP 16; O2SAT 93
--- NOTE | 2022-02-25 13:13 | HO.PSYCHPN ---
Subjective Subjective Date of Service: 02/25/22 Reason For Visit: Mood Interim History: Patient's case reviewed with nursing staff patient seen in the milieu when seen patient feeling overwhelmed Mental Status Exam Mental Status Exam Patient Appearance: Appropriate Patient Orientation: Person Level of Consciousness: Awake Patient Behavior: Guarded and Talkative Mood Description: Withdrawn Affect Description: Labile Patient Cognition Impaired: Yes Ability to Follow Directions: Good Speech Pattern: Clear Hallucinations: None Delusions: Paranoid Ideation Thought Process: Illogical and Distracted Thought Content: positive for [place], positive for [place] and positive for Poverty of Content Judgement: Poor Diagnostics Vital Signs (24Hr): Vital Signs - 24 hr 02/24/22 18:00 Temperature 97.1 F Pulse Rate 70 Respiratory Rate 16 Blood Pressure 176/75 H Pulse Oximetry 95 BMI result Body Mass Index 26.4 Labs Results: 01/20/22 08:00 01/20/22 08:00 Imaging Radiology Impressions: ITS Impressions Chest CT 01/10/22 15:11 IMPRESSION: Bilateral small pulmonary nodules, left greater than right. Biapical pleural and parenchymal scarring. 1.1 x 1.4 cm heterogeneous or semisolid right apical nodule, question related to pleural and parenchymal scarring. 1.5 cm partially calcified left thyroid nodule. Based on patient age in size, this does not meet criteria for follow-up. Moderate coronary artery calcification. Fleischner guidelines were followed. Medications Medications Current Medications Acetaminophen (Acetaminophen 325 Mg Tablet) 650 mg PO Q6H PRN PRN Reason: Headache/Pain Mild Scale (1-3) Al Hydroxide/Mg Hydroxide (Magnesium Hydrox/Alum Hydrox 30 Ml Oral.Susp) 30 ml PO Q6H PRN PRN Reason: Heartburn/Nausea Donepezil HCl (Donepezil Hcl 5 Mg Tablet) 5 mg PO BEDTIME TIMOTEO Last Admin: 02/24/22 20:08 Dose: 5 mg Hydrochlorothiazide (Hydrochlorothiazide 12.5 Mg Tablet) 12.5 mg PO DAILY TIMOTEO; Protocol Last Admin: 02/25/22 11:00 Dose: 12.5 mg Hydrocortisone (Hydrocortisone 1 % Cream 28.35 Gm Tube) 1 appl TOPICAL DAILY PRN PRN Reason: pruritic skin Hydroxyzine HCl (Hydroxyzine Hcl 25 Mg Tablet) 25 mg PO Q6H PRN PRN Reason: Anxiety Ketoconazole (Ketoconazole 2 % Shampoo 120 Ml Btl) 1 appl TOPICAL MoTh TIMOTEO; Protocol Last Admin: 02/23/22 13:39 Dose: Not Given Magnesium Hydroxide (Milk Of Magnesia 30 Ml Oral.Susp) 30 ml PO DAILY PRN PRN Reason: Constipation Olanzapine (Olanzapine 10 Mg Vial) 5 mg IM BID PRN PRN Reason: refusal of PO Olanzapine (Olanzapine 2.5 Mg Tablet) 2.5 mg PO BEDTIME TIMOTEO Last Admin: 02/24/22 20:08 Dose: 2.5 mg Olanzapine (Olanzapine 2.5 Mg Tablet) 2.5 mg PO DAILY@1700 [facility] Last Admin: 02/24/22 16:46 Dose: 2.5 mg Trazodone HCl (Trazodone Hcl 50 Mg Tablet) 50 mg PO BEDTIME PRN PRN Reason: Insomnia Last Admin: 02/24/22 20:08 Dose: 50 mg Allergies Allergies Allergy/AdvReac Type Severity Reaction Status Date / Time codeine Allergy Unknown Unknown Verified 12/15/21 18:29 sulfadiazine Allergy Unknown Unknown Verified 12/15/21 18:29 Assessment & Plan Assessment & Plan (1) Psychosis: Status: Acute Code(s): F29 - Unspecified psychosis not due to a substance or known physiological condition Plan The patient is an elderly female, recently , with poor social support, no help from family or a with and says, admitted into the hospital for psychotic symptoms elicited by paranoia against a major of [facility], failure to thrive and hoarding. Please see the HPI of the admission note for further details. Currently on Section 7 and 8 since the patient wants to leave and does not have any insight into her condition. Plan 1. Continue with Zyprexa as per court order. 2. Guardianship paperwork since the patient cannot take informed decisions. 3. The oncologist already review her case due to the masses of her both lungs but the patient refused to have the procedure of biopsy. 4. MOLST will be discussed again and try to get it sign. Apparently the patient does not have capacity to take informed decisions regarding her MOLST. 5. We need a guardian so we can offer all the medical treatment that she needs at this moment so far, she has refused any treatment or diagnostic procedures for the nodules on her chest. 6. We had guardianship and a fender mechanic apprentice was appointed. We will redirect the family to coordinate efforts. 7. I called today to her guardian and explained that she needs to have a biopsy, the guardian will sign the consent. I also inform Oncology about this. I provided information to Oncology Service. 8. Waiting for the guardian to sign consents and start the workout. 9. Zyprexa 2.5 mg p.o. b.i.d. at 17:00 and 21:00. Current note for 02/25/2022 Continue treatment plan would benefit from oncology workup biopsy and staging when more stable Continue olanzapine patient has treatment order I spent minutes with the patient and/or on the patient floor today, greater than?50% of which was spent counseling/coordinating care. Reason for contiued inpatient stay Substantial Risk for: inability to function and med/psych decompensation
[2022-02-25] MEDS: OLANZapine 2.5 MG TABLET PO ×2 (17:22→21:00)
[2022-02-25 18:00] VITALS: BP 147/71; PULSE 67; RESP 16; TEMP 36.9; O2SAT 95
[2022-02-25] MEDS: Donepezil HCl 5 MG TABLET PO (21:00)
[2022-02-25] MEDS: traZODone HCL 50 MG TABLET PO (21:01)
[2022-02-26 07:30] VITALS: BP 142/72; PULSE 82; RESP 16; TEMP 36.2; O2SAT 97
[2022-02-26] MEDS: hydroCHLOROthiazide 12.5 MG TABLET PO (09:47)
[2022-02-26] MEDS: OLANZapine 2.5 MG TABLET PO ×2 (16:48→21:41)
[2022-02-26 20:44] VITALS: BP 164/89; PULSE 77; RESP 18; TEMP 36.6; O2SAT 97
[2022-02-26] MEDS: Donepezil HCl 5 MG TABLET PO (21:41)
--- NOTE | 2022-02-26 22:40 | P.PNPSI_ITS ---
Subjective Subjective Date of Service: 02/26/22 Reason For Visit: Mood Subjective Notes: Conditional Voluntary Interim History: Pt perplexed and anxious no gross paranoia Mental Status Exam Mental Status Exam Patient Appearance: Well Grooomed Patient Orientation: Person Level of Consciousness: Awake and Appropriate Patient Behavior: Guarded and Passive Mood Description: Withdrawn Affect Description: Constricted Patient Cognition Impaired: Yes Ability to Follow Directions: Good Speech Pattern: Clear Hallucinations: None Delusions: Not Present Thought Process: Distracted Thought Content: positive for [place] and positive for Circumstantial Judgement: Fair Diagnostics Vital Signs (24Hr): Vital Signs - 24 hr 02/26/22 07:30 02/26/22 20:44 Temperature 97.2 F 97.9 F Pulse Rate 82 77 Respiratory Rate 16 18 Blood Pressure 142/72 H 164/89 H Pulse Oximetry 97 97 Oxygen Delivery Method Room Air Room Air BMI result Body Mass Index 26.4 Labs Results: 01/20/22 08:00 01/20/22 08:00 Imaging Radiology Impressions: ITS Impressions Chest CT 01/10/22 15:11 IMPRESSION: Bilateral small pulmonary nodules, left greater than right. Biapical pleural and parenchymal scarring. 1.1 x 1.4 cm heterogeneous or semisolid right apical nodule, question related to pleural and parenchymal scarring. 1.5 cm partially calcified left thyroid nodule. Based on patient age in size, this does not meet criteria for follow-up. Moderate coronary artery calcification. Fleischner guidelines were followed. Medications Medications Current Medications Acetaminophen (Acetaminophen 325 Mg Tablet) 650 mg PO Q6H PRN PRN Reason: Headache/Pain Mild Scale (1-3) Al Hydroxide/Mg Hydroxide (Magnesium Hydrox/Alum Hydrox 30 Ml Oral.Susp) 30 ml PO Q6H PRN PRN Reason: Heartburn/Nausea Donepezil HCl (Donepezil Hcl 5 Mg Tablet) 5 mg PO BEDTIME [facility] Last Admin: 02/26/22 21:41 Dose: 5 mg Hydrochlorothiazide (Hydrochlorothiazide 12.5 Mg Tablet) 12.5 mg PO DAILY [facility]; Protocol Last Admin: 02/26/22 09:47 Dose: 12.5 mg Hydrocortisone (Hydrocortisone 1 % Cream 28.35 Gm Tube) 1 appl TOPICAL DAILY PRN PRN Reason: pruritic skin Hydroxyzine HCl (Hydroxyzine Hcl 25 Mg Tablet) 25 mg PO Q6H PRN PRN Reason: Anxiety Ketoconazole (Ketoconazole 2 % Shampoo 120 Ml Btl) 1 appl TOPICAL MoTh [facility]; Protocol Last Admin: 02/23/22 13:39 Dose: Not Given Magnesium Hydroxide (Milk Of Magnesia 30 Ml Oral.Susp) 30 ml PO DAILY PRN PRN Reason: Constipation Olanzapine (Olanzapine 10 Mg Vial) 5 mg IM BID PRN PRN Reason: refusal of PO Olanzapine (Olanzapine 2.5 Mg Tablet) 2.5 mg PO BEDTIME [facility] Last Admin: 02/26/22 21:41 Dose: 2.5 mg Olanzapine (Olanzapine 2.5 Mg Tablet) 2.5 mg PO DAILY@1700 [facility] Last Admin: 02/26/22 16:48 Dose: 2.5 mg Trazodone HCl (Trazodone Hcl 50 Mg Tablet) 50 mg PO BEDTIME PRN PRN Reason: Insomnia Last Admin: 02/25/22 21:01 Dose: 50 mg Allergies Allergies Allergy/AdvReac Type Severity Reaction Status Date / Time codeine Allergy Unknown Unknown Verified 12/15/21 18:29 sulfadiazine Allergy Unknown Unknown Verified 12/15/21 18:29 Assessment & Plan Assessment & Plan (1) Psychosis: Status: Acute Code(s): F29 - Unspecified psychosis not due to a substance or known physiological condition Plan The patient is an elderly female, recently , with poor social support, no help from family or a with and says, admitted into the hospital for psychotic symptoms elicited by paranoia against a major of [facility], failure to thrive and hoarding. Please see the HPI of the admission note for further details. Currently on Section 7 and 8 since the patient wants to leave and does not have any insight into her condition. Plan 1. Continue with Zyprexa as per court order. 2. Guardianship paperwork since the patient cannot take informed decisions. 3. The oncologist already review her case due to the masses of her both lungs but the patient refused to have the procedure of biopsy. 4. MOLST will be discussed again and try to get it sign. Apparently the patient does not have capacity to take informed decisions regarding her MOLST. 5. We need a guardian so we can offer all the medical treatment that she needs at this moment so far, she has refused any treatment or diagnostic procedures for the nodules on her chest. 6. We had guardianship and a laborer rags was appointed. We will redirect the family to coordinate efforts. 7. I called today to her guardian and explained that she needs to have a biopsy, the guardian will sign the consent. I also inform Oncology about this. I provided information to Oncology Service. 8. Waiting for the guardian to sign consents and start the workout. 9. Zyprexa 2.5 mg p.o. b.i.d. at 17:00 and 21:00. Current note for 02/25/2022 Continue treatment plan would benefit from oncology workup biopsy and staging when more stable Continue olanzapine patient has treatment order 02/26/2022 Continue plan of care hopefully will be come are to be more cooperative with care I spent minutes with the patient and/or on the patient floor today, greater than?50% of which was spent counseling/coordinating care. Reason for contiued inpatient stay Substantial Risk for: inability to function and med/psych decompensation
[2022-02-27] MEDS: hydroCHLOROthiazide 12.5 MG TABLET PO (08:44)
[2022-02-27 08:47] VITALS: BP 200/94; PULSE 70; RESP 16; TEMP 36.2; O2SAT 93
--- NOTE | 2022-02-27 14:01 | P.PNPSI_ITS ---
Subjective Subjective Date of Service: 02/27/22 Reason For Visit: Mood Subjective Notes: Conditional Voluntary Interim History: The staff has noticed that the patient remains with poor insight into her condition. No memory regarding prior conversations. She denies having dementia but it is obvious that she has cognitive impairment. She was referred to several nursing home facilities as per guardianship acceptance, so far 1 of the facilities has already a night her. On interview the patient denies new symptoms she looks confused. We discussed regarding the possibility of metastasis and she refused to have any more procedures. She stated that before coming here, she was supposed to be treated with radiotherapy at [facility]. Mental Status Exam Mental Status Exam Patient Appearance: Well Grooomed Patient Orientation: Person Level of Consciousness: Awake and Appropriate Patient Behavior: Guarded and Passive Mood Description: Withdrawn Affect Description: Constricted Patient Cognition Impaired: Yes Ability to Follow Directions: Good Speech Pattern: Clear Hallucinations: None Delusions: Not Present Thought Process: Distracted Thought Content: positive for [place] and positive for Circumstantial Judgement: Fair Diagnostics Vital Signs (24Hr): Vital Signs - 24 hr 02/26/22 20:44 02/27/22 08:47 Temperature 97.9 F 97.2 F Pulse Rate 77 70 Respiratory Rate 18 16 Blood Pressure 164/89 H 200/94 H Pulse Oximetry 97 93 Oxygen Delivery Method Room Air Room Air BMI result Body Mass Index 26.4 Labs Results: 01/20/22 08:00 01/20/22 08:00 Imaging Radiology Impressions: ITS Impressions Chest CT 01/10/22 15:11 IMPRESSION: Bilateral small pulmonary nodules, left greater than right. Biapical pleural and parenchymal scarring. 1.1 x 1.4 cm heterogeneous or semisolid right apical nodule, question related to pleural and parenchymal scarring. 1.5 cm partially calcified left thyroid nodule. Based on patient age in size, this does not meet criteria for follow-up. Moderate coronary artery calcification. Fleischner guidelines were followed. Medications Medications Current Medications Acetaminophen (Acetaminophen 325 Mg Tablet) 650 mg PO Q6H PRN PRN Reason: Headache/Pain Mild Scale (1-3) Al Hydroxide/Mg Hydroxide (Magnesium Hydrox/Alum Hydrox 30 Ml Oral.Susp) 30 ml PO Q6H PRN PRN Reason: Heartburn/Nausea Donepezil HCl (Donepezil Hcl 5 Mg Tablet) 5 mg PO BEDTIME [facility] Last Admin: 02/26/22 21:41 Dose: 5 mg Hydrochlorothiazide (Hydrochlorothiazide 12.5 Mg Tablet) 12.5 mg PO DAILY [facility]; Protocol Last Admin: 02/27/22 08:44 Dose: 12.5 mg Hydrocortisone (Hydrocortisone 1 % Cream 28.35 Gm Tube) 1 appl TOPICAL DAILY PRN PRN Reason: pruritic skin Hydroxyzine HCl (Hydroxyzine Hcl 25 Mg Tablet) 25 mg PO Q6H PRN PRN Reason: Anxiety Ketoconazole (Ketoconazole 2 % Shampoo 120 Ml Btl) 1 appl TOPICAL MoTh [facility]; Protocol Last Admin: 02/23/22 13:39 Dose: Not Given Magnesium Hydroxide (Milk Of Magnesia 30 Ml Oral.Susp) 30 ml PO DAILY PRN PRN Reason: Constipation Olanzapine (Olanzapine 10 Mg Vial) 5 mg IM BID PRN PRN Reason: refusal of PO Olanzapine (Olanzapine 2.5 Mg Tablet) 2.5 mg PO BEDTIME [facility] Last Admin: 02/26/22 21:41 Dose: 2.5 mg Olanzapine (Olanzapine 2.5 Mg Tablet) 2.5 mg PO DAILY@1700 [facility] Last Admin: 02/26/22 16:48 Dose: 2.5 mg Trazodone HCl (Trazodone Hcl 50 Mg Tablet) 50 mg PO BEDTIME PRN PRN Reason: Insomnia Last Admin: 02/25/22 21:01 Dose: 50 mg Allergies Allergies Allergy/AdvReac Type Severity Reaction Status Date / Time codeine Allergy Unknown Unknown Verified 12/15/21 18:29 sulfadiazine Allergy Unknown Unknown Verified 12/15/21 18:29 Assessment & Plan Assessment & Plan (1) Psychosis: Status: Acute Code(s): F29 - Unspecified psychosis not due to a substance or known physiological condition Plan The patient is an elderly female, recently , with poor social support, no help from family or a with and says, admitted into the hospital for psychotic symptoms elicited by paranoia against a major of was [place], failure to thrive and hoarding. Please see the HPI of the admission note for further details. Currently on Section 7 and 8 since the patient wants to leave and does not have any insight into her condition. Plan 1. Continue with Zyprexa as per court order. 2. Guardianship paperwork since the patient cannot take informed decisions. 3. The oncologist already review her case due to the masses of her both lungs but the patient refused to have the procedure of biopsy. 4. MOLST will be discussed again and try to get it sign. Apparently the patient does not have capacity to take informed decisions regarding her MOLST. 5. We need a guardian so we can offer all the medical treatment that she needs at this moment so far, she has refused any treatment or diagnostic procedures for the nodules on her chest. 6. We had guardianship and a entry level marketing representative was appointed. We will redirect the family to coordinate efforts. 7. I called today to her guardian and explained that she needs to have a biopsy, the guardian will sign the consent. I also inform Oncology about this. I provided information to Oncology Service. 8. Waiting for the guardian to sign consents and start the workout. 9. Zyprexa 2.5 mg p.o. b.i.d. at 17:00 and 21:00. 10. We will discuss again with oncology for diagnosis and treatment. The patient has refused the biopsy at this moment. I spent ___20___ minutes with the patient and/or on the patient floor today, greater than?50% of which was spent counseling/coordinating care. Reason for contiued inpatient stay Substantial Risk for: inability to function, rapid decompensation and med/psych decompensation Time Spent With Patient Time: Total time managing care of this patient today __20__ minutes.
[2022-02-27] MEDS: OLANZapine 2.5 MG TABLET PO ×2 (16:15→20:14)
[2022-02-27 18:00] VITALS: BP 179/82; PULSE 62; RESP 16; TEMP 36.5; O2SAT 97
[2022-02-27] MEDS: Donepezil HCl 5 MG TABLET PO (20:14)
[2022-02-28 10:36] VITALS: BP 146/67; PULSE 75; RESP 18; TEMP 36.7; O2SAT 93
[2022-02-28] MEDS: hydroCHLOROthiazide 12.5 MG TABLET PO (10:37)
--- NOTE | 2022-02-28 11:57 | HO.PSYCHPN ---
Subjective Subjective Date of Service: 02/28/22 Reason For Visit: Mood Interim History: The nursing staff reported the patient has shown a brighter affect he has been cooperative and pleasant, she slept all night, fully compliant with treatment. Yesterday some staff noticed also that she was weepy since she was missing her . Yesterday we have a long conversation regarding the workout of her cancer and she does not want to have any biopsy or any other medical treatment. On interview the patient denies new symptoms she is more focused on her property and unable to remember the conversation that we had yesterday. Mental Status Exam Mental Status Exam Patient Appearance: Appropriate Patient Orientation: Person and Situation Level of Consciousness: Awake Patient Behavior: Guarded and Passive Mood Description: Constricted Affect Description: Labile Patient Cognition Impaired: Yes Ability to Follow Directions: Good Speech Pattern: Clear Hallucinations: None Delusions: Paranoid Ideation Thought Process: Incoherent and Slowed Thinking Thought Content: positive for [place] Judgement: Poor Diagnostics Vital Signs (24Hr): Vital Signs - 24 hr 02/27/22 18:00 02/28/22 10:36 Temperature 97.7 F 98.1 F Pulse Rate 62 75 Respiratory Rate 16 18 Blood Pressure 179/82 H 146/67 H Pulse Oximetry 97 93 Oxygen Delivery Method Room Air Room Air BMI result Body Mass Index 26.4 Labs Results: 01/20/22 08:00 01/20/22 08:00 Imaging Radiology Impressions: ITS Impressions Chest CT 01/10/22 15:11 IMPRESSION: Bilateral small pulmonary nodules, left greater than right. Biapical pleural and parenchymal scarring. 1.1 x 1.4 cm heterogeneous or semisolid right apical nodule, question related to pleural and parenchymal scarring. 1.5 cm partially calcified left thyroid nodule. Based on patient age in size, this does not meet criteria for follow-up. Moderate coronary artery calcification. Fleischner guidelines were followed. Medications Medications Current Medications Acetaminophen (Acetaminophen 325 Mg Tablet) 650 mg PO Q6H PRN PRN Reason: Headache/Pain Mild Scale (1-3) Al Hydroxide/Mg Hydroxide (Magnesium Hydrox/Alum Hydrox 30 Ml Oral.Susp) 30 ml PO Q6H PRN PRN Reason: Heartburn/Nausea Donepezil HCl (Donepezil Hcl 5 Mg Tablet) 5 mg PO BEDTIME [facility] Last Admin: 02/27/22 20:14 Dose: 5 mg Hydrochlorothiazide (Hydrochlorothiazide 12.5 Mg Tablet) 12.5 mg PO DAILY [facility]; Protocol Last Admin: 02/28/22 10:37 Dose: 12.5 mg Hydrocortisone (Hydrocortisone 1 % Cream 28.35 Gm Tube) 1 appl TOPICAL DAILY PRN PRN Reason: pruritic skin Hydroxyzine HCl (Hydroxyzine Hcl 25 Mg Tablet) 25 mg PO Q6H PRN PRN Reason: Anxiety Ketoconazole (Ketoconazole 2 % Shampoo 120 Ml Btl) 1 appl TOPICAL MoTh [facility]; Protocol Last Admin: 02/27/22 15:05 Dose: Not Given Magnesium Hydroxide (Milk Of Magnesia 30 Ml Oral.Susp) 30 ml PO DAILY PRN PRN Reason: Constipation Olanzapine (Olanzapine 10 Mg Vial) 5 mg IM BID PRN PRN Reason: refusal of PO Olanzapine (Olanzapine 2.5 Mg Tablet) 2.5 mg PO BEDTIME [facility] Last Admin: 02/27/22 20:14 Dose: 2.5 mg Olanzapine (Olanzapine 2.5 Mg Tablet) 2.5 mg PO DAILY@1700 [facility] Last Admin: 02/27/22 16:15 Dose: 2.5 mg Oxybutynin Chloride (Oxybutynin Chloride Er 5 Mg Tab.Er.24) 5 mg PO BEDTIME [facility] Last Admin: 02/27/22 20:14 Dose: 5 mg Trazodone HCl (Trazodone Hcl 50 Mg Tablet) 50 mg PO BEDTIME PRN PRN Reason: Insomnia Last Admin: 02/25/22 21:01 Dose: 50 mg Allergies Allergies Allergy/AdvReac Type Severity Reaction Status Date / Time codeine Allergy Unknown Unknown Verified 12/15/21 18:29 sulfadiazine Allergy Unknown Unknown Verified 12/15/21 18:29 Assessment & Plan Assessment & Plan (1) Psychosis: Status: Acute Code(s): F29 - Unspecified psychosis not due to a substance or known physiological condition Plan The patient is an elderly female, recently , with poor social support, no help from family or a with and says, admitted into the hospital for psychotic symptoms elicited by paranoia against a major of was [place], failure to thrive and hoarding. Please see the HPI of the admission note for further details. Currently on Section 7 and 8 since the patient wants to leave and does not have any insight into her condition. Plan 1. Continue with Zyprexa as per court order. 2. Guardianship paperwork since the patient cannot take informed decisions. 3. The oncologist already review her case due to the masses of her both lungs but the patient refused to have the procedure of biopsy. 4. MOLST will be discussed again and try to get it sign. Apparently the patient does not have capacity to take informed decisions regarding her MOLST. 5. We need a guardian so we can offer all the medical treatment that she needs at this moment so far, she has refused any treatment or diagnostic procedures for the nodules on her chest. 6. We had guardianship and a stroboscope operator was appointed. We will redirect the family to coordinate efforts. 7. I called today to her guardian and explained that she needs to have a biopsy, the guardian will sign the consent. I also inform Oncology about this. I provided information to Oncology Service. 8. Waiting for the guardian to sign consents and start the workout. 9. Zyprexa 2.5 mg p.o. b.i.d. at 17:00 and 21:00. 10. We will talk with the guardian regarding the refusal of the patient to have any further care for her cancer. I spent ___20___ minutes with the patient and/or on the patient floor today, greater than?50% of which was spent counseling/coordinating care. Reason for contiued inpatient stay Substantial Risk for: inability to function, rapid decompensation and med/psych decompensation Time Spent With Patient Time: Total time managing care of this patient today _20___ minutes.
[2022-02-28] MEDS: OLANZapine 2.5 MG TABLET PO ×2 (16:26→20:18)
[2022-02-28] MEDS: Donepezil HCl 5 MG TABLET PO (20:18)
[2022-02-28 20:58] VITALS: BP 178/73; PULSE 62; RESP 18; TEMP 36.6; O2SAT 97
[2022-03-01 06:00] VITALS: BP 155/69; PULSE 67; RESP 17; TEMP 35.6; O2SAT 96
[2022-03-01] MEDS: hydroCHLOROthiazide 12.5 MG TABLET PO (08:11)
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
[2022-03-01] MEDS: OLANZapine 2.5 MG TABLET PO ×2 (16:45→21:14)
[2022-03-01 18:00] VITALS: BP 156/70; PULSE 68; RESP 18; TEMP 36.8; O2SAT 94
[2022-03-01] MEDS: Donepezil HCl 5 MG TABLET PO (21:14)
[2022-03-02 06:00] VITALS: BP 135/77; PULSE 79; O2SAT 6
[2022-03-02 07:00] VITALS: BMI 26.5
[2022-03-02] MEDS: hydroCHLOROthiazide 12.5 MG TABLET PO (12:42)
[2022-03-02] MEDS: OLANZapine 2.5 MG TABLET PO ×2 (16:33→20:55)
--- NOTE | 2022-03-02 17:30 | HO.PSYCHPN ---
Subjective Subjective Date of Service: 03/02/22 Reason For Visit: Mood Subjective Notes: [place] Warning and Section 8 Healthcare Proxy: No Guardianship: No Medical Problems Affecting Mental Status: No Interim History: Met with pt briefly. She has been on the phone with police dispatch complaining about people taking things from her house, as she received a call from someone that there are disposable bins in her driveway. Pt is not yet accepting of her dispo for LT placement and is wanting to return home. Pt reports she is very worried about my house and i want to get out of here, then waves T/W away. No other updates per nursing staff development coordinator. Mental Status Exam Mental Status Exam Narrative: Patient Appearance: Appropriate Patient Orientation: Person and Situation Level of Consciousness: Awake and Appropriate Patient Behavior: Guarded and Passive Mood Description: Withdrawn Affect Description: Constricted Patient Cognition Impaired: Yes Ability to Follow Directions: Fair Speech Pattern: Clear Hallucinations: None Delusions: Paranoid Ideation Thought Content: positive for [place], positive for Perseveration and positive for Poverty of Content Judgement: Poor Diagnostics Vital Signs (24Hr): Vital Signs - 24 hr 03/01/22 18:00 03/02/22 06:00 Temperature 98.3 F Pulse Rate 68 79 Respiratory Rate 18 Blood Pressure 156/70 H 135/77 Pulse Oximetry 94 6 L Oxygen Delivery Method Room Air Room Air BMI result Body Mass Index 26.5 Labs Results: 01/20/22 08:00 01/20/22 08:00 Imaging Radiology Impressions: ITS Impressions Chest CT 01/10/22 15:11 IMPRESSION: Bilateral small pulmonary nodules, left greater than right. Biapical pleural and parenchymal scarring. 1.1 x 1.4 cm heterogeneous or semisolid right apical nodule, question related to pleural and parenchymal scarring. 1.5 cm partially calcified left thyroid nodule. Based on patient age in size, this does not meet criteria for follow-up. Moderate coronary artery calcification. Fleischner guidelines were followed. Medications Medications Current Medications Acetaminophen (Acetaminophen 325 Mg Tablet) 650 mg PO Q6H PRN PRN Reason: Headache/Pain Mild Scale (1-3) Al Hydroxide/Mg Hydroxide (Magnesium Hydrox/Alum Hydrox 30 Ml Oral.Susp) 30 ml PO Q6H PRN PRN Reason: Heartburn/Nausea Donepezil HCl (Donepezil Hcl 5 Mg Tablet) 5 mg PO BEDTIME TIMOTEO Last Admin: 03/01/22 21:14 Dose: 5 mg Hydrochlorothiazide (Hydrochlorothiazide 12.5 Mg Tablet) 12.5 mg PO DAILY TIMOTEO; Protocol Last Admin: 03/02/22 12:42 Dose: 12.5 mg Hydrocortisone (Hydrocortisone 1 % Cream 28.35 Gm Tube) 1 appl TOPICAL DAILY PRN PRN Reason: pruritic skin Hydroxyzine HCl (Hydroxyzine Hcl 25 Mg Tablet) 25 mg PO Q6H PRN PRN Reason: Anxiety Ketoconazole (Ketoconazole 2 % Shampoo 120 Ml Btl) 1 appl TOPICAL MoTh TIMOTEO; Protocol Last Admin: 03/02/22 14:47 Dose: Not Given Magnesium Hydroxide (Milk Of Magnesia 30 Ml Oral.Susp) 30 ml PO DAILY PRN PRN Reason: Constipation Olanzapine (Olanzapine 10 Mg Vial) 5 mg IM BID PRN PRN Reason: refusal of PO Olanzapine (Olanzapine 2.5 Mg Tablet) 2.5 mg PO BEDTIME TIMOTEO Last Admin: 03/01/22 21:14 Dose: 2.5 mg Olanzapine (Olanzapine 2.5 Mg Tablet) 2.5 mg PO DAILY@1700 TIMOTEO Last Admin: 03/02/22 16:33 Dose: 2.5 mg Oxybutynin Chloride (Oxybutynin Chloride Er 5 Mg Tab.Er.24) 5 mg PO BEDTIME TIMOTEO Last Admin: 03/01/22 21:14 Dose: 5 mg Trazodone HCl (Trazodone Hcl 50 Mg Tablet) 50 mg PO BEDTIME PRN PRN Reason: Insomnia Last Admin: 02/25/22 21:01 Dose: 50 mg Allergies Allergies Allergy/AdvReac Type Severity Reaction Status Date / Time codeine Allergy Unknown Unknown Verified 12/15/21 18:29 sulfadiazine Allergy Unknown Unknown Verified 12/15/21 18:29 Assessment & Plan Assessment & Plan (1) Psychosis: Status: Acute Code(s): F29 - Unspecified psychosis not due to a substance or known physiological condition Plan The patient is an elderly female, recently , with poor social support, no help from family or a with and says, admitted into the hospital for psychotic symptoms elicited by paranoia against a major of [facility], failure to thrive and hoarding. Please see the HPI of the admission note for further details. Currently on Section 7 and 8 since the patient wants to leave and does not have any insight into her condition. Plan 1. Continue with Zyprexa as per court order. 2. Guardianship paperwork since the patient cannot take informed decisions. 3. The oncologist already review her case due to the masses of her both lungs but the patient refused to have the procedure of biopsy. 4. MOLST will be discussed again and try to get it sign. Apparently the patient does not have capacity to take informed decisions regarding her MOLST. 5. We need a guardian so we can offer all the medical treatment that she needs at this moment so far, she has refused any treatment or diagnostic procedures for the nodules on her chest. 6. We had guardianship and a fisher eel spear was appointed. We will redirect the family to coordinate efforts. 7. I called today to her guardian and explained that she needs to have a biopsy, the guardian will sign the consent. I also inform Oncology about this. I provided information to Oncology Service. 8. Waiting for the guardian to sign consents and start the workout. 9. Zyprexa 2.5 mg p.o. b.i.d. at 17:00 and 21:00. 10. We will talk with the guardian regarding the refusal of the patient to have any further care for her cancer. I spent minutes with the patient and/or on the patient floor today, greater than?50% of which was spent counseling/coordinating care. Patient educated on: other Reason for contiued inpatient stay Substantial Risk for: inability to function, rapid decompensation and med/psych decompensation Time Spent With Patient Time: Total time managing care of this patient today ____ minutes.
[2022-03-02 18:00] VITALS: BP 187/94; PULSE 68; RESP 16; TEMP 36.8; O2SAT 93
[2022-03-02] MEDS: Donepezil HCl 5 MG TABLET PO (20:54)
[2022-03-03 06:00] VITALS: BP 189/91; PULSE 88; RESP 16; TEMP 36.1; O2SAT 95
--- NOTE | 2022-03-03 17:33 | P.PNPSI_ITS ---
Subjective Subjective Date of Service: 03/03/22 Reason For Visit: Mood Interim History: Discussed with team, doing better today in terms of perseveration and mood. I spoke with pt, says she is Jean alex, I had a wonderful chicken tonight, liked her dinner. Pt says I had an opportunity to review my exam prescriptions from [facility], they said I have cataracts in both eyes, inquiring about any scripts she should be on, will follow up with team. I don?t want to go blind between you and me. Mental Status Exam Mental Status Exam Narrative: Patient Appearance: Appropriate Patient Orientation: Person and Situation Level of Consciousness: Awake and Appropriate Patient Behavior: Guarded and Passive Mood Description: Withdrawn Affect Description: Constricted Patient Cognition Impaired: Yes Ability to Follow Directions: Fair Speech Pattern: Clear Hallucinations: None Delusions: Paranoid Ideation Thought Content: positive for [place], positive for Perseveration and positive for Poverty of Content Judgement: Poor Diagnostics Vital Signs (24Hr): Vital Signs - 24 hr 03/02/22 18:00 03/03/22 06:00 Temperature 98.2 F 97.0 F Pulse Rate 68 88 Respiratory Rate 16 16 Blood Pressure 187/94 H 189/91 H Pulse Oximetry 93 95 Oxygen Delivery Method Room Air Room Air BMI result Body Mass Index 26.5 Labs Results: 01/20/22 08:00 01/20/22 08:00 Imaging Radiology Impressions: ITS Impressions Chest CT 01/10/22 15:11 IMPRESSION: Bilateral small pulmonary nodules, left greater than right. Biapical pleural and parenchymal scarring. 1.1 x 1.4 cm heterogeneous or semisolid right apical nodule, question related to pleural and parenchymal scarring. 1.5 cm partially calcified left thyroid nodule. Based on patient age in size, this does not meet criteria for follow-up. Moderate coronary artery calcification. Fleischner guidelines were followed. Medications Medications Current Medications Acetaminophen (Acetaminophen 325 Mg Tablet) 650 mg PO Q6H PRN PRN Reason: Headache/Pain Mild Scale (1-3) Al Hydroxide/Mg Hydroxide (Magnesium Hydrox/Alum Hydrox 30 Ml Oral.Susp) 30 ml PO Q6H PRN PRN Reason: Heartburn/Nausea Donepezil HCl (Donepezil Hcl 5 Mg Tablet) 5 mg PO BEDTIME TIMOTEO Last Admin: 03/02/22 20:54 Dose: 5 mg Hydrochlorothiazide (Hydrochlorothiazide 12.5 Mg Tablet) 12.5 mg PO DAILY TIMOTEO; Protocol Last Admin: 03/03/22 10:28 Dose: Not Given Hydrocortisone (Hydrocortisone 1 % Cream 28.35 Gm Tube) 1 appl TOPICAL DAILY PRN PRN Reason: pruritic skin Hydroxyzine HCl (Hydroxyzine Hcl 25 Mg Tablet) 25 mg PO Q6H PRN PRN Reason: Anxiety Ketoconazole (Ketoconazole 2 % Shampoo 120 Ml Btl) 1 appl TOPICAL MoTh TIMOTEO; Protocol Last Admin: 03/02/22 14:47 Dose: Not Given Magnesium Hydroxide (Milk Of Magnesia 30 Ml Oral.Susp) 30 ml PO DAILY PRN PRN Reason: Constipation Olanzapine (Olanzapine 10 Mg Vial) 5 mg IM BID PRN PRN Reason: refusal of PO Olanzapine (Olanzapine 2.5 Mg Tablet) 2.5 mg PO BEDTIME TIMOTEO Last Admin: 03/02/22 20:55 Dose: 2.5 mg Olanzapine (Olanzapine 2.5 Mg Tablet) 2.5 mg PO DAILY@1700 [facility] Last Admin: 03/02/22 16:33 Dose: 2.5 mg Oxybutynin Chloride (Oxybutynin Chloride Er 5 Mg Tab.Er.24) 5 mg PO BEDTIME TIMOTEO Last Admin: 03/02/22 20:58 Dose: 5 mg Trazodone HCl (Trazodone Hcl 50 Mg Tablet) 50 mg PO BEDTIME PRN PRN Reason: Insomnia Last Admin: 02/25/22 21:01 Dose: 50 mg Allergies Allergies Allergy/AdvReac Type Severity Reaction Status Date / Time codeine Allergy Unknown Unknown Verified 12/15/21 18:29 sulfadiazine Allergy Unknown Unknown Verified 12/15/21 18:29 Assessment & Plan Assessment & Plan (1) Psychosis: Status: Acute Code(s): F29 - Unspecified psychosis not due to a substance or known physiological condition Plan The patient is an elderly female, recently , with poor social support, no help from family or a with and says, admitted into the hospital for psychotic symptoms elicited by paranoia against a major of was [place], failure to thrive and hoarding. Please see the HPI of the admission note for further details. Currently on Section 7 and 8 since the patient wants to leave and does not have any insight into her condition. Plan 1. Continue with Zyprexa as per court order. 2. Guardianship paperwork since the patient cannot take informed decisions. 3. The oncologist already review her case due to the masses of her both lungs but the patient refused to have the procedure of biopsy. 4. MOLST will be discussed again and try to get it sign. Apparently the patient does not have capacity to take informed decisions regarding her MOLST. 5. We need a guardian so we can offer all the medical treatment that she needs at this moment so far, she has refused any treatment or diagnostic procedures for the nodules on her chest. 6. We had guardianship and a elevator examiner and adjuster was appointed. We will redirect the family to coordinate efforts. 7. I called today to her guardian and explained that she needs to have a biopsy, the guardian will sign the consent. I also inform Oncology about this. I provided information to Oncology Service. 8. Waiting for the guardian to sign consents and start the workout. 9. Zyprexa 2.5 mg p.o. b.i.d. at 17:00 and 21:00. 10. We will talk with the guardian regarding the refusal of the patient to have any further care for her cancer. I spent minutes with the patient and/or on the patient floor today, greater than?50% of which was spent counseling/coordinating care. Patient educated on: therapeutic strategies Reason for contiued inpatient stay Substantial Risk for: inability to function, rapid decompensation and med/psych decompensation Time Spent With Patient Time: Total time managing care of this patient today ____ minutes.
[2022-03-03 18:00] VITALS: BP 185/81; PULSE 68; RESP 20; TEMP 36.4; O2SAT 98
[2022-03-03] MEDS: OLANZapine 2.5 MG TABLET PO (21:40)
[2022-03-03] MEDS: Donepezil HCl 5 MG TABLET PO (21:41)
[2022-03-04 06:00] VITALS: BP 178/79; PULSE 71; RESP 16; TEMP 35.3; O2SAT 97
[2022-03-04] MEDS: hydroCHLOROthiazide 12.5 MG TABLET PO (09:17)
[2022-03-04] MEDS: OLANZapine 2.5 MG TABLET PO ×2 (16:28→20:02)
[2022-03-04 18:00] VITALS: BP 155/63; PULSE 96; RESP 16; TEMP 36.9; O2SAT 99
--- NOTE | 2022-03-04 18:50 | HO.PSYCHPN ---
Subjective Subjective Date of Service: 03/04/22 Reason For Visit: Mood Interim History: does not engage w/ curriculum writer; staff reports eating and sleeping well but does not understand why she cannot return home Mental Status Exam Mental Status Exam Narrative: Patient Appearance: Appropriate Patient Orientation: Person and Situation Level of Consciousness: Awake and Appropriate Patient Behavior: Guarded and Passive Mood Description: Withdrawn Affect Description: Constricted Patient Cognition Impaired: Yes Ability to Follow Directions: Fair Speech Pattern: Clear Hallucinations: None Delusions: Paranoid Ideation Thought Content: positive for [place], positive for [place] and positive for Poverty of Content Judgement: Poor Diagnostics Vital Signs (24Hr): Vital Signs - 24 hr 03/04/22 06:00 Temperature 95.5 F L Pulse Rate 71 Respiratory Rate 16 Blood Pressure 178/79 H Pulse Oximetry 97 Oxygen Delivery Method Room Air BMI result Body Mass Index 26.5 Labs Results: 01/20/22 08:00 01/20/22 08:00 Imaging Radiology Impressions: ITS Impressions Chest CT 01/10/22 15:11 IMPRESSION: Bilateral small pulmonary nodules, left greater than right. Biapical pleural and parenchymal scarring. 1.1 x 1.4 cm heterogeneous or semisolid right apical nodule, question related to pleural and parenchymal scarring. 1.5 cm partially calcified left thyroid nodule. Based on patient age in size, this does not meet criteria for follow-up. Moderate coronary artery calcification. Fleischner guidelines were followed. Medications Medications Current Medications Acetaminophen (Acetaminophen 325 Mg Tablet) 650 mg PO Q6H PRN PRN Reason: Headache/Pain Mild Scale (1-3) Al Hydroxide/Mg Hydroxide (Magnesium Hydrox/Alum Hydrox 30 Ml Oral.Susp) 30 ml PO Q6H PRN PRN Reason: Heartburn/Nausea Donepezil HCl (Donepezil Hcl 5 Mg Tablet) 5 mg PO BEDTIME TIMOTEO Last Admin: 03/03/22 21:41 Dose: 5 mg Hydrochlorothiazide (Hydrochlorothiazide 12.5 Mg Tablet) 12.5 mg PO DAILY TIMOTEO; Protocol Last Admin: 03/04/22 09:17 Dose: 12.5 mg Hydrocortisone (Hydrocortisone 1 % Cream 28.35 Gm Tube) 1 appl TOPICAL DAILY PRN PRN Reason: pruritic skin Hydroxyzine HCl (Hydroxyzine Hcl 25 Mg Tablet) 25 mg PO Q6H PRN PRN Reason: Anxiety Ketoconazole (Ketoconazole 2 % Shampoo 120 Ml Btl) 1 appl TOPICAL MoTh TIMOTEO; Protocol Last Admin: 03/02/22 14:47 Dose: Not Given Magnesium Hydroxide (Milk Of Magnesia 30 Ml Oral.Susp) 30 ml PO DAILY PRN PRN Reason: Constipation Olanzapine (Olanzapine 10 Mg Vial) 5 mg IM BID PRN PRN Reason: refusal of PO Olanzapine (Olanzapine 2.5 Mg Tablet) 2.5 mg PO BEDTIME TIMOTEO Last Admin: 03/03/22 21:40 Dose: 2.5 mg Olanzapine (Olanzapine 2.5 Mg Tablet) 2.5 mg PO DAILY@1700 TIMOTEO Last Admin: 03/04/22 16:28 Dose: 2.5 mg Oxybutynin Chloride (Oxybutynin Chloride Er 5 Mg Tab.Er.24) 5 mg PO BEDTIME TIMOTEO Last Admin: 03/03/22 21:40 Dose: 5 mg Trazodone HCl (Trazodone Hcl 50 Mg Tablet) 50 mg PO BEDTIME PRN PRN Reason: Insomnia Last Admin: 02/25/22 21:01 Dose: 50 mg Allergies Allergies Allergy/AdvReac Type Severity Reaction Status Date / Time codeine Allergy Unknown Unknown Verified 12/15/21 18:29 sulfadiazine Allergy Unknown Unknown Verified 12/15/21 18:29 Assessment & Plan Assessment & Plan (1) Psychosis: Status: Acute Code(s): F29 - Unspecified psychosis not due to a substance or known physiological condition Plan The patient is an elderly female, recently , with poor social support, no help from family or a with and says, admitted into the hospital for psychotic symptoms elicited by paranoia against a major of [facility], failure to thrive and hoarding. Please see the HPI of the admission note for further details. Currently on Section 7 and 8 since the patient wants to leave and does not have any insight into her condition. 03/04 remains Hypertensive; will discuss with hospitalist whether to increase Hydrochlorothiazide or start other agent Plan 1. Continue with Zyprexa as per court order. 2. Guardianship paperwork since the patient cannot take informed decisions. 3. The oncologist already review her case due to the masses of her both lungs but the patient refused to have the procedure of biopsy. 4. MOLST will be discussed again and try to get it sign. Apparently the patient does not have capacity to take informed decisions regarding her MOLST. 5. We need a guardian so we can offer all the medical treatment that she needs at this moment so far, she has refused any treatment or diagnostic procedures for the nodules on her chest. 6. We had guardianship and a photographic laboratory technician was appointed. We will redirect the family to coordinate efforts. 7. I called today to her guardian and explained that she needs to have a biopsy, the guardian will sign the consent. I also inform Oncology about this. I provided information to Oncology Service. 8. Waiting for the guardian to sign consents and start the workout. 9. Zyprexa 2.5 mg p.o. b.i.d. at 17:00 and 21:00. 10. We will talk with the guardian regarding the refusal of the patient to have any further care for her cancer. I spent minutes with the patient and/or on the patient floor today, greater than?50% of which was spent counseling/coordinating care. Reason for contiued inpatient stay Substantial Risk for: inability to function Time Spent With Patient Time: Total time managing care of this patient today ____ minutes.
[2022-03-04] MEDS: Donepezil HCl 5 MG TABLET PO (20:02)
[2022-03-04] MEDS: traZODone HCL 50 MG TABLET PO (21:42)
[2022-03-05] MEDS: hydroCHLOROthiazide 12.5 MG TABLET PO (09:17)
--- NOTE | 2022-03-05 16:22 | P.PNPSI_ITS ---
Subjective Subjective Date of Service: 03/05/22 Reason For Visit: Mood Interim History: Discussed with team, chart reviewed. Pt reports she is happy because lunch will be here soon. Appears lost in her thoughts and preoccupied-several losses since admission to [facility] which she has had to manage. Pleasant, offers no symptoms of concern, blank staring at times. Medication Compliance: Yes Side effects from medications: No Attending Groups: No Review of Systems Acute medical concerns: No Medical Review of Systems: unchanged Mental Status Exam Mental Status Exam Patient Appearance: Fatigued Patient Orientation: Person, Place and Situation Level of Consciousness: Alert Patient Behavior: Talkative Mood Description: Withdrawn Affect Description: Withdrawn Patient Cognition Impaired: Yes Ability to Follow Directions: Fair Speech Pattern: Spontaneous Speech Memory Description: Remote Impaired and Episodic Impaired Hallucinations: None Delusions: Not Present Thought Process: Distracted and Rumination Thought Content: positive for Preoccupation Depressive Symptoms: Increased Fatigue and Loss of Energy Judgement: Poor Diagnostics Vital Signs (24Hr): Vital Signs - 24 hr 03/04/22 18:00 Temperature 98.5 F Pulse Rate 96 Respiratory Rate 16 Blood Pressure 155/63 H Pulse Oximetry 99 Oxygen Delivery Method Room Air BMI result Body Mass Index 26.5 Labs Results: 01/20/22 08:00 01/20/22 08:00 Imaging Radiology Impressions: ITS Impressions Chest CT 01/10/22 15:11 IMPRESSION: Bilateral small pulmonary nodules, left greater than right. Biapical pleural and parenchymal scarring. 1.1 x 1.4 cm heterogeneous or semisolid right apical nodule, question related to pleural and parenchymal scarring. 1.5 cm partially calcified left thyroid nodule. Based on patient age in size, this does not meet criteria for follow-up. Moderate coronary artery calcification. Fleischner guidelines were followed. Medications Medications Current Medications Acetaminophen (Acetaminophen 325 Mg Tablet) 650 mg PO Q6H PRN PRN Reason: Headache/Pain Mild Scale (1-3) Al Hydroxide/Mg Hydroxide (Magnesium Hydrox/Alum Hydrox 30 Ml Oral.Susp) 30 ml PO Q6H PRN PRN Reason: Heartburn/Nausea Donepezil HCl (Donepezil Hcl 5 Mg Tablet) 5 mg PO BEDTIME TIMOTEO Last Admin: 03/04/22 20:02 Dose: 5 mg Hydrochlorothiazide (Hydrochlorothiazide 12.5 Mg Tablet) 12.5 mg PO DAILY TIMOTEO; Protocol Last Admin: 03/05/22 09:17 Dose: 12.5 mg Hydrocortisone (Hydrocortisone 1 % Cream 28.35 Gm Tube) 1 appl TOPICAL DAILY PRN PRN Reason: pruritic skin Hydroxyzine HCl (Hydroxyzine Hcl 25 Mg Tablet) 25 mg PO Q6H PRN PRN Reason: Anxiety Ketoconazole (Ketoconazole 2 % Shampoo 120 Ml Btl) 1 appl TOPICAL MoTh TIMOTEO; Protocol Last Admin: 03/02/22 14:47 Dose: Not Given Magnesium Hydroxide (Milk Of Magnesia 30 Ml Oral.Susp) 30 ml PO DAILY PRN PRN Reason: Constipation Olanzapine (Olanzapine 10 Mg Vial) 5 mg IM BID PRN PRN Reason: refusal of PO Olanzapine (Olanzapine 2.5 Mg Tablet) 2.5 mg PO BEDTIME TIMOTEO Last Admin: 03/04/22 20:02 Dose: 2.5 mg Olanzapine (Olanzapine 2.5 Mg Tablet) 2.5 mg PO DAILY@1700 TIMOTEO Last Admin: 03/04/22 16:28 Dose: 2.5 mg Oxybutynin Chloride (Oxybutynin Chloride Er 5 Mg Tab.Er.24) 5 mg PO BEDTIME TIMOTEO Last Admin: 03/04/22 20:02 Dose: 5 mg Trazodone HCl (Trazodone Hcl 50 Mg Tablet) 50 mg PO BEDTIME PRN PRN Reason: Insomnia Last Admin: 03/04/22 21:42 Dose: 50 mg Allergies Allergies Allergy/AdvReac Type Severity Reaction Status Date / Time codeine Allergy Unknown Unknown Verified 12/15/21 18:29 sulfadiazine Allergy Unknown Unknown Verified 12/15/21 18:29 Assessment & Plan Assessment & Plan (1) Psychosis: Status: Acute Code(s): F29 - Unspecified psychosis not due to a substance or known physiological condition Plan The patient is an elderly female, recently , with poor social support, no help from family or a with and says, admitted into the hospital for psychotic symptoms elicited by paranoia against a major of was [place], failure to thrive and hoarding. Please see the HPI of the admission note for further details. Currently on Section 7 and 8 since the patient wants to leave and does not have any insight into her condition. 03/04 remains Hypertensive; will discuss with hospitalist whether to increase Hydrochlorothiazide or start other agent 03/05/22 continue to monitor, no changes at this time. Plan 1. Continue with Zyprexa as per court order. 2. Guardianship paperwork since the patient cannot take informed decisions. 3. The oncologist already review her case due to the masses of her both lungs but the patient refused to have the procedure of biopsy. 4. MOLST will be discussed again and try to get it sign. Apparently the patient does not have capacity to take informed decisions regarding her MOLST. 5. We need a guardian so we can offer all the medical treatment that she needs at this moment so far, she has refused any treatment or diagnostic procedures for the nodules on her chest. 6. We had guardianship and a benefits technician was appointed. We will redirect the family to coordinate efforts. 7. I called today to her guardian and explained that she needs to have a biopsy, the guardian will sign the consent. I also inform Oncology about this. I provided information to Oncology Service. 8. Waiting for the guardian to sign consents and start the workout. 9. Zyprexa 2.5 mg p.o. b.i.d. at 17:00 and 21:00. 10. We will talk with the guardian regarding the refusal of the patient to have any further care for her cancer. I spent minutes with the patient and/or on the patient floor today, greater than?50% of which was spent counseling/coordinating care. Informed Consent: does not understand Reason for contiued inpatient stay Substantial Risk for: med/psych decompensation Time Spent With Patient Time: Total time managing care of this patient today __15__ minutes.
--- NOTE | 2022-03-05 16:39 | PM.EVENT ---
Event Note Date of Service: 03/05/22 Event Note: Pt with history of breast cancer, hyperlipidemia, dementia with behavioral disturbance, hypertension admitted to Psychiatry with consult placed to Medicine for management of hypertension. Patient has been hypertensive since arrival. Hydrochlorothiazide 12.5 mg was added to patient medications, though remains hypertensive. Would recommend adding amlodipine 10 mg at bedtime and continue hydrochlorothiazide 12.5 mg every morning. Also recommend checking renal function and electrolyte levels given addition of hydrochlorothiazide which is ordered. Monitor blood pressure every shift. Please consult p.r.n. if any further questions. Time Spent With Patient Time: Total time managing care of this patient today ____ minutes.
[2022-03-05] MEDS: OLANZapine 2.5 MG TABLET PO ×2 (17:32→21:15)
[2022-03-05 18:00] VITALS: BP 181/95; PULSE 62; RESP 14; TEMP 37.1; O2SAT 95
[2022-03-05] MEDS: amLODIPine Besylate 5 MG TABLET PO (21:15)
[2022-03-05] MEDS: Donepezil HCl 5 MG TABLET PO (21:15)
[2022-03-05] MEDS: traZODone HCL 50 MG TABLET PO (21:15)
[2022-03-06 07:30] VITALS: BP 155/60; PULSE 67; RESP 16; TEMP 36.4; O2SAT 97
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
[2022-03-06] MEDS: hydroCHLOROthiazide 12.5 MG TABLET PO (13:52)
[2022-03-06 14:30] LABS: Influenza A PCR NEGATIVE (Negative); Influenza B PCR NEGATIVE (Negative); Resp Syncy Virus RNA Qual PCR NEGATIVE (Negative); SARS COV2 PCR INHOUSE NEGATIVE (Negative)
[2022-03-06 18:00] VITALS: BP 163/76; PULSE 70; RESP 18; TEMP 36.8; O2SAT 95
[2022-03-06] MEDS: amLODIPine Besylate 10 MG TABLET PO (19:51)
[2022-03-06] MEDS: OLANZapine 2.5 MG TABLET PO (19:51)
[2022-03-06] MEDS: Donepezil HCl 5 MG TABLET PO (19:52)
[2022-03-06] MEDS: traZODone HCL 50 MG TABLET PO (19:55)
[2022-03-07] MEDS: hydroCHLOROthiazide 12.5 MG TABLET PO (08:42)
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
[2022-03-07 18:00] VITALS: BP 168/80; PULSE 59; RESP 16; TEMP 36.3; O2SAT 92
[2022-03-07] MEDS: amLODIPine Besylate 10 MG TABLET PO (20:01)
[2022-03-07] MEDS: Donepezil HCl 5 MG TABLET PO (20:02)
[2022-03-07] MEDS: OLANZapine 5 MG TABLET PO (20:03)
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
--- NOTE | 2022-03-08 11:00 | HO.PSYCHPN ---
Subjective Subjective Date of Service: 03/08/22 Reason For Visit: Mood Subjective Notes: Section 8 Interim History: Pt pleasant on approach. Does not remember meeting this writers on prior days and repeatedly asks this copy writer if I started working there today. Pt tearful stating this is her first [place] without her . Pt expressed gratitude for help received on this unit. However, she continues to report that she does not understand why she can't return home on her own. Per nursing, pt slept well. Pt slept most of the morning today. Dr. An from oncology reached out to this copy writer and recommends another CT in about one month which will be 3 months from original one as nodules look like scaring, may not be malignancy. Medication Compliance: Yes Review of Systems Review of Systems Lower extremity edema Yes Unobtainable due to mental status Constitutional: Reports no additional constitutional complaints Eyes: Reports no additional eye complaints Reports system reviewed and no additional complaints, except as documented Cardiovascular: Reports no additional cardiovascular complaints Respiratory: Reports no additional respiratory complaints Gastrointestinal: Reports no additional gastrointestinal complaints Musculoskeletal: Reports no additional musculoskeletal complaints Skin/Breast: Reports system reviewed and no additional complaints, except as docu Reports system reviewed and no additional complaints, except as documented Psychiatric: Reports no additional psychiatric complaints Endocrine: Reports no additional endocrine complaints Hematologic/Lymphatic: Reports no additional hematologic/lymphatic complaints Allergic/Immunologic: Reports no additional allergic/immunologic complaints Mental Status Exam Mental Status Exam Narrative: appearance: casually groomed, good hygiene, in NAD Behavior: cooperative but also wants to end meeting soon after few questions Psychomotor: no overt retardation or agitation noted Speech: clear, normal rate/rhythm/volume, spontaneous TP: linear TC: enjoying the food here, feeling well here Mood: good Affect: brightens up at times SI: none HI: none Insight/judgment: poor x 2. Memory/cog: alert, not oriented to situation. Diagnostics Vital Signs (24Hr): Vital Signs - 24 hr 03/07/22 18:00 Temperature 97.4 F Pulse Rate 59 Respiratory Rate 16 Blood Pressure 168/80 H Pulse Oximetry 92 Oxygen Delivery Method Room Air BMI result Body Mass Index 26.5 Labs Results: 01/20/22 08:00 01/20/22 08:00 Imaging Radiology Impressions: ITS Impressions Chest CT 01/10/22 15:11 IMPRESSION: Bilateral small pulmonary nodules, left greater than right. Biapical pleural and parenchymal scarring. 1.1 x 1.4 cm heterogeneous or semisolid right apical nodule, question related to pleural and parenchymal scarring. 1.5 cm partially calcified left thyroid nodule. Based on patient age in size, this does not meet criteria for follow-up. Moderate coronary artery calcification. Fleischner guidelines were followed. Medications Medications Current Medications Acetaminophen (Acetaminophen 325 Mg Tablet) 650 mg PO Q6H PRN PRN Reason: Headache/Pain Mild Scale (1-3) Al Hydroxide/Mg Hydroxide (Magnesium Hydrox/Alum Hydrox 30 Ml Oral.Susp) 30 ml PO Q6H PRN PRN Reason: Heartburn/Nausea Amlodipine Besylate (Amlodipine Besylate 10 Mg Tablet) 10 mg PO BEDTIME TIMOTEO; Protocol Last Admin: 03/07/22 20:01 Dose: 10 mg Donepezil HCl (Donepezil Hcl 5 Mg Tablet) 5 mg PO BEDTIME TIMOTEO Last Admin: 03/07/22 20:02 Dose: 5 mg Hydrochlorothiazide (Hydrochlorothiazide 12.5 Mg Tablet) 12.5 mg PO DAILY TIMOTEO; Protocol Last Admin: 03/08/22 11:23 Dose: 12.5 mg Hydrocortisone (Hydrocortisone 1 % Cream 28.35 Gm Tube) 1 appl TOPICAL DAILY PRN PRN Reason: pruritic skin Hydroxyzine HCl (Hydroxyzine Hcl 25 Mg Tablet) 25 mg PO Q6H PRN PRN Reason: Anxiety Ketoconazole (Ketoconazole 2 % Shampoo 120 Ml Btl) 1 appl TOPICAL MoTh TIMOTEO; Protocol Last Admin: 03/06/22 13:55 Dose: Not Given Magnesium Hydroxide (Milk Of Magnesia 30 Ml Oral.Susp) 30 ml PO DAILY PRN PRN Reason: Constipation Olanzapine (Olanzapine 5 Mg Tablet) 5 mg PO BEDTIME TIMOTEO Last Admin: 03/07/22 20:03 Dose: 5 mg Olanzapine (Olanzapine 10 Mg Vial) 5 mg IM BEDTIME PRN PRN Reason: refusal of PO Oxybutynin Chloride (Oxybutynin Chloride Er 5 Mg Tab.Er.24) 5 mg PO BEDTIME TIMOTEO Last Admin: 03/07/22 20:02 Dose: 5 mg Trazodone HCl (Trazodone Hcl 50 Mg Tablet) 50 mg PO BEDTIME PRN PRN Reason: Insomnia Last Admin: 03/06/22 19:55 Dose: 50 mg Allergies Allergies Allergy/AdvReac Type Severity Reaction Status Date / Time codeine Allergy Unknown Unknown Verified 12/15/21 18:29 sulfadiazine Allergy Unknown Unknown Verified 12/15/21 18:29 Assessment & Plan Assessment & Plan (1) Psychosis: Status: Acute Code(s): F29 - Unspecified psychosis not due to a substance or known physiological condition Plan The patient is an elderly female, recently , with poor social support, no help from family or a with and says, admitted into the hospital for psychotic symptoms elicited by paranoia against a major of was [place], failure to thrive and hoarding. Please see the HPI of the admission note for further details. Currently on Section 7 and 8 since the patient wants to leave and does not have any insight into her condition. 03/04 remains Hypertensive; will discuss with hospitalist whether to increase Hydrochlorothiazide or start other agent 03/05/22 continue to monitor, no changes at this time. Plan 1. Continue with Zyprexa as per court order. 2. Guardianship paperwork since the patient cannot take informed decisions. 3. The oncologist already review her case due to the masses of her both lungs but the patient refused to have the procedure of biopsy. 4. MOLST will be discussed again and try to get it sign. Apparently the patient does not have capacity to take informed decisions regarding her MOLST. 5. We need a guardian so we can offer all the medical treatment that she needs at this moment so far, she has refused any treatment or diagnostic procedures for the nodules on her chest. 6. We had guardianship and a bench assembly inspector was appointed. We will redirect the family to coordinate efforts. 7. I called today to her guardian and explained that she needs to have a biopsy, the guardian will sign the consent. I also inform Oncology about this. I provided information to Oncology Service. 8. Waiting for the guardian to sign consents and start the workout. 9. Zyprexa 2.5 mg p.o. b.i.d. at 17:00 and 21:00. 10. We will talk with the guardian regarding the refusal of the patient to have any further care for her cancer. 03/06- continue current tx. 03/07- change olanzapine to 5mg po qhs, back up IM olanzapine 5mg prn qhs if pt refuses oral olanzapine per sect 8. will re-consult oncology as pt now open to have biopsy. 03/08 oncology, Dr. An recommends new chest CT in about one month- 3 months after initial one, as she reviewed with radiology yesterday again and it may be scaring not nodules. continue current medications. I spent minutes with the patient and/or on the patient floor today, greater than?50% of which was spent counseling/coordinating care. Reason for contiued inpatient stay Substantial Risk for: inability to function Time Spent With Patient Time: Total time managing care of this patient today ____ minutes.
[2022-03-08] MEDS: hydroCHLOROthiazide 12.5 MG TABLET PO (11:23)
[2022-03-08 18:00] VITALS: BP 144/80; PULSE 65; RESP 22; TEMP 36.7; O2SAT 95
[2022-03-08] MEDS: traZODone HCL 50 MG TABLET PO (19:57)
[2022-03-08] MEDS: Donepezil HCl 5 MG TABLET PO (19:57)
[2022-03-08] MEDS: amLODIPine Besylate 10 MG TABLET PO (19:57)
[2022-03-08] MEDS: OLANZapine 5 MG TABLET PO (19:58)
[2022-03-09 06:00] VITALS: BP 170/83; PULSE 72; RESP 16; TEMP 36.6; O2SAT 99
[2022-03-09 07:00] VITALS: BMI 24.4
--- NOTE | 2022-03-09 09:42 | HO.PSYCHPN ---
Subjective Subjective Date of Service: 03/09/22 Reason For Visit: Mood Subjective Notes: Conditional Voluntary Interim History: Pt reports that she was threatened to get IM if she did not take court mandated medication- which is olanzapine. Pt states that court hearing happened over 2 years ago, which is not the case it was some months ago. Pt does not remember this keno writer/runner, despite meeting me daily and spending about 15-20 minutes, if not more in divided times during the day. Pt then was tearful, does not think she needs help and that she should be able to return to her house. Per nursing, pt slept through the night, no behavioral concerns other than last night resistant to taking all medications, but eventually took them, as she thought it was a mistake to take all those medications. Medication Compliance: Yes Side effects from medications: No Attending Groups: Yes Review of Systems Review of Systems Lower extremity edema Yes Unobtainable due to mental status Constitutional: Reports no additional constitutional complaints Eyes: Reports no additional eye complaints Reports system reviewed and no additional complaints, except as documented Cardiovascular: Reports no additional cardiovascular complaints Respiratory: Reports no additional respiratory complaints Gastrointestinal: Reports no additional gastrointestinal complaints Musculoskeletal: Reports no additional musculoskeletal complaints Skin/Breast: Reports system reviewed and no additional complaints, except as docu Reports system reviewed and no additional complaints, except as documented Psychiatric: Reports no additional psychiatric complaints Endocrine: Reports no additional endocrine complaints Hematologic/Lymphatic: Reports no additional hematologic/lymphatic complaints Allergic/Immunologic: Reports no additional allergic/immunologic complaints Mental Status Exam Mental Status Exam Narrative: appearance: casually groomed, good hygiene, in NAD Behavior: cooperative but also wants to end meeting soon after few questions Psychomotor: no overt retardation or agitation noted Speech: clear, normal rate/rhythm/volume, spontaneous TP: linear TC: enjoying the food here, feeling well here Mood: good Affect: brightens up at times SI: none HI: none Insight/judgment: poor x 2. Memory/cog: alert, not oriented to situation. Diagnostics Vital Signs (24Hr): Vital Signs - 24 hr 03/09/22 21:03 Temperature 97.8 F Pulse Rate 62 Respiratory Rate 18 Blood Pressure 145/59 H Pulse Oximetry 96 Oxygen Delivery Method Room Air BMI result Body Mass Index 24.4 Labs Results: 01/20/22 08:00 01/20/22 08:00 Imaging Radiology Impressions: ITS Impressions Chest CT 01/10/22 15:11 IMPRESSION: Bilateral small pulmonary nodules, left greater than right. Biapical pleural and parenchymal scarring. 1.1 x 1.4 cm heterogeneous or semisolid right apical nodule, question related to pleural and parenchymal scarring. 1.5 cm partially calcified left thyroid nodule. Based on patient age in size, this does not meet criteria for follow-up. Moderate coronary artery calcification. Fleischner guidelines were followed. Medications Medications Current Medications Acetaminophen (Acetaminophen 325 Mg Tablet) 650 mg PO Q6H PRN PRN Reason: Headache/Pain Mild Scale (1-3) Al Hydroxide/Mg Hydroxide (Magnesium Hydrox/Alum Hydrox 30 Ml Oral.Susp) 30 ml PO Q6H PRN PRN Reason: Heartburn/Nausea Amlodipine Besylate (Amlodipine Besylate 10 Mg Tablet) 10 mg PO BEDTIME TIMOTEO; Protocol Last Admin: 03/09/22 21:45 Dose: 10 mg Donepezil HCl (Donepezil Hcl 5 Mg Tablet) 5 mg PO BEDTIME TIMOTEO Last Admin: 03/09/22 21:48 Dose: Not Given Hydrochlorothiazide (Hydrochlorothiazide 12.5 Mg Tablet) 12.5 mg PO DAILY TIMOTEO; Protocol Last Admin: 03/09/22 11:16 Dose: Not Given Hydrocortisone (Hydrocortisone 1 % Cream 28.35 Gm Tube) 1 appl TOPICAL DAILY PRN PRN Reason: pruritic skin Hydroxyzine HCl (Hydroxyzine Hcl 25 Mg Tablet) 25 mg PO Q6H PRN PRN Reason: Anxiety Ketoconazole (Ketoconazole 2 % Shampoo 120 Ml Btl) 1 appl TOPICAL MoTh TIMOTEO; Protocol Last Admin: 03/09/22 15:59 Dose: Not Given Magnesium Hydroxide (Milk Of Magnesia 30 Ml Oral.Susp) 30 ml PO DAILY PRN PRN Reason: Constipation Olanzapine (Olanzapine 5 Mg Tablet) 5 mg PO BEDTIME TIMOTEO Last Admin: 03/09/22 21:47 Dose: 5 mg Olanzapine (Olanzapine 10 Mg Vial) 5 mg IM BEDTIME PRN PRN Reason: refusal of PO Oxybutynin Chloride (Oxybutynin Chloride Er 5 Mg Tab.Er.24) 5 mg PO BEDTIME TIMOTEO Last Admin: 03/09/22 21:48 Dose: Not Given Trazodone HCl (Trazodone Hcl 50 Mg Tablet) 50 mg PO BEDTIME PRN PRN Reason: Insomnia Last Admin: 03/09/22 21:44 Dose: 50 mg Allergies Allergies Allergy/AdvReac Type Severity Reaction Status Date / Time codeine Allergy Unknown Unknown Verified 12/15/21 18:29 sulfadiazine Allergy Unknown Unknown Verified 12/15/21 18:29 Assessment & Plan Assessment & Plan (1) Dementia: Status: Acute Code(s): F03.90 - Unspecified dementia, unspecified severity, without behavioral disturbance, psychotic disturbance, mood disturbance, and anxiety Plan The patient is an elderly female, recently , with poor social support, no help from family or a with and says, admitted into the hospital for psychotic symptoms elicited by paranoia against a major of was [place], failure to thrive and hoarding. Please see the HPI of the admission note for further details. Currently on Section 7 and 8 since the patient wants to leave and does not have any insight into her condition. 03/04 remains Hypertensive; will discuss with hospitalist whether to increase Hydrochlorothiazide or start other agent 03/05/22 continue to monitor, no changes at this time. Plan 1. Continue with Zyprexa as per court order. 2. Guardianship paperwork since the patient cannot take informed decisions. 3. The oncologist already review her case due to the masses of her both lungs but the patient refused to have the procedure of biopsy. 4. MOLST will be discussed again and try to get it sign. Apparently the patient does not have capacity to take informed decisions regarding her MOLST. 5. We need a guardian so we can offer all the medical treatment that she needs at this moment so far, she has refused any treatment or diagnostic procedures for the nodules on her chest. 6. We had guardianship and a sand screener was appointed. We will redirect the family to coordinate efforts. 7. I called today to her guardian and explained that she needs to have a biopsy, the guardian will sign the consent. I also inform Oncology about this. I provided information to Oncology Service. 8. Waiting for the guardian to sign consents and start the workout. 9. Zyprexa 2.5 mg p.o. b.i.d. at 17:00 and 21:00. 10. We will talk with the guardian regarding the refusal of the patient to have any further care for her cancer. 03/06- continue current tx. 03/07- change olanzapine to 5mg po qhs, back up IM olanzapine 5mg prn qhs if pt refuses oral olanzapine per sect 8. will re-consult oncology as pt now open to have biopsy. 03/08 oncology, Dr. An recommends new chest CT in about one month- 3 months after initial one, as she reviewed with radiology yesterday again and it may be scaring not nodules. continue current medications. 03/09 continue current tx. Reason for contiued inpatient stay Substantial Risk for: inability to function Time Spent With Patient Time: Total time managing care of this patient today ____ minutes.
[2022-03-09 21:03] VITALS: BP 145/59; PULSE 62; RESP 18; TEMP 36.6; O2SAT 96
[2022-03-09] MEDS: traZODone HCL 50 MG TABLET PO (21:44)
[2022-03-09] MEDS: amLODIPine Besylate 10 MG TABLET PO (21:45)
[2022-03-09] MEDS: OLANZapine 5 MG TABLET PO (21:47)
[2022-03-10 06:00] VITALS: BP 168/73; PULSE 69; RESP 18; TEMP 36.8; O2SAT 97
[2022-03-10] MEDS: hydroCHLOROthiazide 12.5 MG TABLET PO (10:33)
--- NOTE | 2022-03-10 15:30 | HO.PSYCHPN ---
Subjective Subjective Date of Service: 03/10/22 Reason For Visit: Mood Subjective Notes: Conditional Voluntary Interim History: Pt reports she is doing well. Again tells this engineering writer story about her eye doctor and prescription. This engineering writer explained that I was aware of this situation. pt surprise as she does not remember talking with me days prior. Pt denies SI/HI. At times can be irritable but redirectable no significant behavioral concerns. Medication Compliance: Yes Side effects from medications: No Attending Groups: No Review of Systems Review of Systems Lower extremity edema Yes Unobtainable due to mental status Constitutional: Reports no additional constitutional complaints Eyes: Reports no additional eye complaints Reports system reviewed and no additional complaints, except as documented Cardiovascular: Reports no additional cardiovascular complaints Respiratory: Reports no additional respiratory complaints Gastrointestinal: Reports no additional gastrointestinal complaints Musculoskeletal: Reports no additional musculoskeletal complaints Skin/Breast: Reports system reviewed and no additional complaints, except as docu Reports system reviewed and no additional complaints, except as documented Psychiatric: Reports no additional psychiatric complaints Endocrine: Reports no additional endocrine complaints Hematologic/Lymphatic: Reports no additional hematologic/lymphatic complaints Allergic/Immunologic: Reports no additional allergic/immunologic complaints Mental Status Exam Mental Status Exam Narrative: appearance: casually groomed, good hygiene, in NAD Behavior: cooperative but also wants to end meeting soon after few questions Psychomotor: no overt retardation or agitation noted Speech: clear, normal rate/rhythm/volume, spontaneous TP: linear TC: enjoying the food here, feeling well here Mood: good Affect: brightens up at times SI: none HI: none Insight/judgment: poor x 2. Memory/cog: alert, not oriented to situation. Diagnostics Vital Signs (24Hr): Vital Signs - 24 hr 03/09/22 21:03 03/10/22 06:00 Temperature 97.8 F 98.3 F Pulse Rate 62 69 Respiratory Rate 18 18 Blood Pressure 145/59 H 168/73 H Pulse Oximetry 96 97 Oxygen Delivery Method Room Air Room Air BMI result Body Mass Index 24.4 Labs Results: 01/20/22 08:00 01/20/22 08:00 Imaging Radiology Impressions: ITS Impressions Chest CT 01/10/22 15:11 IMPRESSION: Bilateral small pulmonary nodules, left greater than right. Biapical pleural and parenchymal scarring. 1.1 x 1.4 cm heterogeneous or semisolid right apical nodule, question related to pleural and parenchymal scarring. 1.5 cm partially calcified left thyroid nodule. Based on patient age in size, this does not meet criteria for follow-up. Moderate coronary artery calcification. Fleischner guidelines were followed. Medications Medications Current Medications Acetaminophen (Acetaminophen 325 Mg Tablet) 650 mg PO Q6H PRN PRN Reason: Headache/Pain Mild Scale (1-3) Al Hydroxide/Mg Hydroxide (Magnesium Hydrox/Alum Hydrox 30 Ml Oral.Susp) 30 ml PO Q6H PRN PRN Reason: Heartburn/Nausea Amlodipine Besylate (Amlodipine Besylate 10 Mg Tablet) 10 mg PO BEDTIME TIMOTEO; Protocol Last Admin: 03/09/22 21:45 Dose: 10 mg Donepezil HCl (Donepezil Hcl 5 Mg Tablet) 5 mg PO BEDTIME TIMOTEO Last Admin: 03/09/22 21:48 Dose: Not Given Hydrochlorothiazide (Hydrochlorothiazide 12.5 Mg Tablet) 12.5 mg PO DAILY TIMOTEO; Protocol Last Admin: 03/10/22 10:33 Dose: 12.5 mg Hydrocortisone (Hydrocortisone 1 % Cream 28.35 Gm Tube) 1 appl TOPICAL DAILY PRN PRN Reason: pruritic skin Hydroxyzine HCl (Hydroxyzine Hcl 25 Mg Tablet) 25 mg PO Q6H PRN PRN Reason: Anxiety Ketoconazole (Ketoconazole 2 % Shampoo 120 Ml Btl) 1 appl TOPICAL MoTh TIMOTEO; Protocol Last Admin: 03/09/22 15:59 Dose: Not Given Magnesium Hydroxide (Milk Of Magnesia 30 Ml Oral.Susp) 30 ml PO DAILY PRN PRN Reason: Constipation Olanzapine (Olanzapine 5 Mg Tablet) 5 mg PO BEDTIME TIMOTEO Last Admin: 03/09/22 21:47 Dose: 5 mg Olanzapine (Olanzapine 10 Mg Vial) 5 mg IM BEDTIME PRN PRN Reason: refusal of PO Oxybutynin Chloride (Oxybutynin Chloride Er 5 Mg Tab.Er.24) 5 mg PO BEDTIME TIMOTEO Last Admin: 03/09/22 21:48 Dose: Not Given Trazodone HCl (Trazodone Hcl 50 Mg Tablet) 50 mg PO BEDTIME PRN PRN Reason: Insomnia Last Admin: 03/09/22 21:44 Dose: 50 mg Allergies Allergies Allergy/AdvReac Type Severity Reaction Status Date / Time codeine Allergy Unknown Unknown Verified 12/15/21 18:29 sulfadiazine Allergy Unknown Unknown Verified 12/15/21 18:29 Assessment & Plan Assessment & Plan (1) Dementia: Status: Acute Code(s): F03.90 - Unspecified dementia, unspecified severity, without behavioral disturbance, psychotic disturbance, mood disturbance, and anxiety Plan The patient is an elderly female, recently , with poor social support, no help from family or a with and says, admitted into the hospital for psychotic symptoms elicited by paranoia against a major of was [place], failure to thrive and hoarding. Please see the HPI of the admission note for further details. Currently on Section 7 and 8 since the patient wants to leave and does not have any insight into her condition. 03/04 remains Hypertensive; will discuss with hospitalist whether to increase Hydrochlorothiazide or start other agent 03/05/22 continue to monitor, no changes at this time. Plan 1. Continue with Zyprexa as per court order. 2. Guardianship paperwork since the patient cannot take informed decisions. 3. The oncologist already review her case due to the masses of her both lungs but the patient refused to have the procedure of biopsy. 4. MOLST will be discussed again and try to get it sign. Apparently the patient does not have capacity to take informed decisions regarding her MOLST. 5. We need a guardian so we can offer all the medical treatment that she needs at this moment so far, she has refused any treatment or diagnostic procedures for the nodules on her chest. 6. We had guardianship and a import coordination and production head was appointed. We will redirect the family to coordinate efforts. 7. I called today to her guardian and explained that she needs to have a biopsy, the guardian will sign the consent. I also inform Oncology about this. I provided information to Oncology Service. 8. Waiting for the guardian to sign consents and start the workout. 9. Zyprexa 2.5 mg p.o. b.i.d. at 17:00 and 21:00. 10. We will talk with the guardian regarding the refusal of the patient to have any further care for her cancer. 03/06- continue current tx. 03/07- change olanzapine to 5mg po qhs, back up IM olanzapine 5mg prn qhs if pt refuses oral olanzapine per sect 8. will re-consult oncology as pt now open to have biopsy. 03/08 oncology, Dr. An recommends new chest CT in about one month- 3 months after initial one, as she reviewed with radiology yesterday again and it may be scaring not nodules. continue current medications. 03/09 continue current tx. 03/10 continue tx. Reason for contiued inpatient stay Substantial Risk for: inability to function Time Spent With Patient Time: Total time managing care of this patient today ____ minutes.
[2022-03-10 18:00] VITALS: BP 142/73; PULSE 73; RESP 16; TEMP 36.7; O2SAT 93
[2022-03-10] MEDS: amLODIPine Besylate 10 MG TABLET PO (22:05)
[2022-03-10] MEDS: traZODone HCL 50 MG TABLET PO (22:05)
[2022-03-10] MEDS: OLANZapine 5 MG TABLET PO (22:06)
--- NOTE | 2022-03-11 16:10 | HO.PSYCHPN ---
Subjective Subjective Date of Service: 03/11/22 Reason For Visit: Mood Interim History: Discussed with team. Spoke with pt, says she is writing a letter to Dr. Quintanilla, they prescribed a medication that im supposed to be taking for the cataracts, says she needs a new copy of her med list from her solutions executive [employer]. Otherwise she says she is physically okay but im a mental wrack, tearful, misses her . Mental Status Exam Mental Status Exam Narrative: appearance: casually groomed, good hygiene, in NAD Behavior: cooperative but also wants to end meeting soon after few questions Psychomotor: no overt retardation or agitation noted Speech: clear, normal rate/rhythm/volume, spontaneous TP: linear TC: enjoying the food here, feeling well here Mood: good Affect: brightens up at times SI: none HI: none Insight/judgment: poor x 2. Memory/cog: alert, not oriented to situation. Diagnostics Vital Signs (24Hr): Vital Signs - 24 hr 03/10/22 18:00 Temperature 98.1 F Pulse Rate 73 Respiratory Rate 16 Blood Pressure 142/73 H Pulse Oximetry 93 Oxygen Delivery Method Room Air BMI result Body Mass Index 24.4 Labs Results: 01/20/22 08:00 01/20/22 08:00 Imaging Radiology Impressions: ITS Impressions Chest CT 01/10/22 15:11 IMPRESSION: Bilateral small pulmonary nodules, left greater than right. Biapical pleural and parenchymal scarring. 1.1 x 1.4 cm heterogeneous or semisolid right apical nodule, question related to pleural and parenchymal scarring. 1.5 cm partially calcified left thyroid nodule. Based on patient age in size, this does not meet criteria for follow-up. Moderate coronary artery calcification. Fleischner guidelines were followed. Medications Medications Current Medications Acetaminophen (Acetaminophen 325 Mg Tablet) 650 mg PO Q6H PRN PRN Reason: Headache/Pain Mild Scale (1-3) Al Hydroxide/Mg Hydroxide (Magnesium Hydrox/Alum Hydrox 30 Ml Oral.Susp) 30 ml PO Q6H PRN PRN Reason: Heartburn/Nausea Amlodipine Besylate (Amlodipine Besylate 10 Mg Tablet) 10 mg PO BEDTIME TIMOTEO; Protocol Last Admin: 03/10/22 22:05 Dose: 10 mg Donepezil HCl (Donepezil Hcl 5 Mg Tablet) 5 mg PO BEDTIME TIMOTEO Last Admin: 03/10/22 22:06 Dose: Not Given Hydrochlorothiazide (Hydrochlorothiazide 12.5 Mg Tablet) 12.5 mg PO DAILY TIMOTEO; Protocol Last Admin: 03/11/22 10:03 Dose: Not Given Hydrocortisone (Hydrocortisone 1 % Cream 28.35 Gm Tube) 1 appl TOPICAL DAILY PRN PRN Reason: pruritic skin Hydroxyzine HCl (Hydroxyzine Hcl 25 Mg Tablet) 25 mg PO Q6H PRN PRN Reason: Anxiety Ketoconazole (Ketoconazole 2 % Shampoo 120 Ml Btl) 1 appl TOPICAL MoTh TIMOTEO; Protocol Last Admin: 03/09/22 15:59 Dose: Not Given Magnesium Hydroxide (Milk Of Magnesia 30 Ml Oral.Susp) 30 ml PO DAILY PRN PRN Reason: Constipation Olanzapine (Olanzapine 5 Mg Tablet) 5 mg PO BEDTIME TIMOTEO Last Admin: 03/10/22 22:06 Dose: 5 mg Olanzapine (Olanzapine 10 Mg Vial) 5 mg IM BEDTIME PRN PRN Reason: refusal of PO Oxybutynin Chloride (Oxybutynin Chloride Er 5 Mg Tab.Er.24) 5 mg PO BEDTIME TIMOTEO Last Admin: 03/10/22 22:07 Dose: Not Given Trazodone HCl (Trazodone Hcl 50 Mg Tablet) 50 mg PO BEDTIME PRN PRN Reason: Insomnia Last Admin: 03/10/22 22:05 Dose: 50 mg Allergies Allergies Allergy/AdvReac Type Severity Reaction Status Date / Time codeine Allergy Unknown Unknown Verified 12/15/21 18:29 sulfadiazine Allergy Unknown Unknown Verified 12/15/21 18:29 Assessment & Plan Assessment & Plan (1) Dementia: Status: Acute Code(s): F03.90 - Unspecified dementia, unspecified severity, without behavioral disturbance, psychotic disturbance, mood disturbance, and anxiety Plan The patient is an elderly female, recently , with poor social support, no help from family or a with and says, admitted into the hospital for psychotic symptoms elicited by paranoia against a major of was [place], failure to thrive and hoarding. Please see the HPI of the admission note for further details. Currently on Section 7 and 8 since the patient wants to leave and does not have any insight into her condition. 03/04 remains Hypertensive; will discuss with hospitalist whether to increase Hydrochlorothiazide or start other agent 03/05/22 continue to monitor, no changes at this time. Plan 1. Continue with Zyprexa as per court order. 2. Guardianship paperwork since the patient cannot take informed decisions. 3. The oncologist already review her case due to the masses of her both lungs but the patient refused to have the procedure of biopsy. 4. MOLST will be discussed again and try to get it sign. Apparently the patient does not have capacity to take informed decisions regarding her MOLST. 5. We need a guardian so we can offer all the medical treatment that she needs at this moment so far, she has refused any treatment or diagnostic procedures for the nodules on her chest. 6. We had guardianship and a portable track line marker was appointed. We will redirect the family to coordinate efforts. 7. I called today to her guardian and explained that she needs to have a biopsy, the guardian will sign the consent. I also inform Oncology about this. I provided information to Oncology Service. 8. Waiting for the guardian to sign consents and start the workout. 9. Zyprexa 2.5 mg p.o. b.i.d. at 17:00 and 21:00. 10. We will talk with the guardian regarding the refusal of the patient to have any further care for her cancer. 03/06- continue current tx. 03/07- change olanzapine to 5mg po qhs, back up IM olanzapine 5mg prn qhs if pt refuses oral olanzapine per sect 8. will re-consult oncology as pt now open to have biopsy. 03/08 oncology, Dr. An recommends new chest CT in about one month- 3 months after initial one, as she reviewed with radiology yesterday again and it may be scaring not nodules. continue current medications. 03/09 continue current tx. 03/10 continue tx. 03/11 no med changes Patient educated on: therapeutic strategies Reason for contiued inpatient stay Substantial Risk for: inability to function, rapid decompensation and med/psych decompensation Time Spent With Patient Time: Total time managing care of this patient today ____ minutes.
[2022-03-11 20:00] VITALS: BP 187/86; PULSE 66; RESP 20; TEMP 36.5; O2SAT 96
[2022-03-11] MEDS: amLODIPine Besylate 10 MG TABLET PO (21:04)
[2022-03-11] MEDS: Donepezil HCl 5 MG TABLET PO (21:04)
[2022-03-11] MEDS: OLANZapine 5 MG TABLET PO (21:04)
[2022-03-12 06:00] VITALS: BP 153/68; PULSE 66; RESP 12; TEMP 36.6; O2SAT 98
[2022-03-12] MEDS: hydroCHLOROthiazide 12.5 MG TABLET PO (10:00)
--- NOTE | 2022-03-12 13:34 | HO.PSYCHPN ---
Subjective Subjective Date of Service: 03/12/22 Reason For Visit: Mood Interim History: Discussed with team. Spoke with pt, she is watching a holiday movie, smiling, engaged with this activity, says she is alright and denies having questions or concerns. Feels safe. Mental Status Exam Mental Status Exam Narrative: appearance: casually groomed, good hygiene, in NAD Behavior: cooperative but also wants to end meeting soon after few questions Psychomotor: no overt retardation or agitation noted Speech: clear, normal rate/rhythm/volume, spontaneous TP: linear TC: enjoying the food here, feeling well here Mood: good Affect: brightens up at times SI: none HI: none Insight/judgment: poor x 2. Memory/cog: alert, not oriented to situation. Diagnostics Vital Signs (24Hr): Vital Signs - 24 hr 03/11/22 20:00 03/12/22 06:00 Temperature 97.7 F 98 F Pulse Rate 66 66 Respiratory Rate 20 12 Blood Pressure 187/86 H 153/68 H Pulse Oximetry 96 98 Oxygen Delivery Method Room Air Room Air BMI result Body Mass Index 24.4 Labs Results: 01/20/22 08:00 01/20/22 08:00 Imaging Radiology Impressions: ITS Impressions Chest CT 01/10/22 15:11 IMPRESSION: Bilateral small pulmonary nodules, left greater than right. Biapical pleural and parenchymal scarring. 1.1 x 1.4 cm heterogeneous or semisolid right apical nodule, question related to pleural and parenchymal scarring. 1.5 cm partially calcified left thyroid nodule. Based on patient age in size, this does not meet criteria for follow-up. Moderate coronary artery calcification. Fleischner guidelines were followed. Medications Medications Current Medications Acetaminophen (Acetaminophen 325 Mg Tablet) 650 mg PO Q6H PRN PRN Reason: Headache/Pain Mild Scale (1-3) Al Hydroxide/Mg Hydroxide (Magnesium Hydrox/Alum Hydrox 30 Ml Oral.Susp) 30 ml PO Q6H PRN PRN Reason: Heartburn/Nausea Amlodipine Besylate (Amlodipine Besylate 10 Mg Tablet) 10 mg PO BEDTIME TIMOTEO; Protocol Last Admin: 03/11/22 21:04 Dose: 10 mg Donepezil HCl (Donepezil Hcl 5 Mg Tablet) 5 mg PO BEDTIME TIMOTEO Last Admin: 03/11/22 21:04 Dose: 5 mg Hydrochlorothiazide (Hydrochlorothiazide 12.5 Mg Tablet) 12.5 mg PO DAILY TIMOTEO; Protocol Last Admin: 03/12/22 10:00 Dose: 12.5 mg Hydrocortisone (Hydrocortisone 1 % Cream 28.35 Gm Tube) 1 appl TOPICAL DAILY PRN PRN Reason: pruritic skin Hydroxyzine HCl (Hydroxyzine Hcl 25 Mg Tablet) 25 mg PO Q6H PRN PRN Reason: Anxiety Ketoconazole (Ketoconazole 2 % Shampoo 120 Ml Btl) 1 appl TOPICAL MoTh TIMOTEO; Protocol Last Admin: 03/09/22 15:59 Dose: Not Given Magnesium Hydroxide (Milk Of Magnesia 30 Ml Oral.Susp) 30 ml PO DAILY PRN PRN Reason: Constipation Olanzapine (Olanzapine 5 Mg Tablet) 5 mg PO BEDTIME TIMOTEO Last Admin: 03/11/22 21:04 Dose: 5 mg Olanzapine (Olanzapine 10 Mg Vial) 5 mg IM BEDTIME PRN PRN Reason: refusal of PO Oxybutynin Chloride (Oxybutynin Chloride Er 5 Mg Tab.Er.24) 5 mg PO BEDTIME TIMOTEO Last Admin: 03/11/22 21:10 Dose: Not Given Trazodone HCl (Trazodone Hcl 50 Mg Tablet) 50 mg PO BEDTIME PRN PRN Reason: Insomnia Last Admin: 03/10/22 22:05 Dose: 50 mg Allergies Allergies Allergy/AdvReac Type Severity Reaction Status Date / Time codeine Allergy Unknown Unknown Verified 12/15/21 18:29 sulfadiazine Allergy Unknown Unknown Verified 12/15/21 18:29 Assessment & Plan Assessment & Plan (1) Dementia: Status: Acute Code(s): F03.90 - Unspecified dementia, unspecified severity, without behavioral disturbance, psychotic disturbance, mood disturbance, and anxiety Plan The patient is an elderly female, recently , with poor social support, no help from family or a with and says, admitted into the hospital for psychotic symptoms elicited by paranoia against a major of was [place], failure to thrive and hoarding. Please see the HPI of the admission note for further details. Currently on Section 7 and 8 since the patient wants to leave and does not have any insight into her condition. 03/04 remains Hypertensive; will discuss with hospitalist whether to increase Hydrochlorothiazide or start other agent 03/05/22 continue to monitor, no changes at this time. Plan 1. Continue with Zyprexa as per court order. 2. Guardianship paperwork since the patient cannot take informed decisions. 3. The oncologist already review her case due to the masses of her both lungs but the patient refused to have the procedure of biopsy. 4. MOLST will be discussed again and try to get it sign. Apparently the patient does not have capacity to take informed decisions regarding her MOLST. 5. We need a guardian so we can offer all the medical treatment that she needs at this moment so far, she has refused any treatment or diagnostic procedures for the nodules on her chest. 6. We had guardianship and a offset printing pressmen was appointed. We will redirect the family to coordinate efforts. 7. I called today to her guardian and explained that she needs to have a biopsy, the guardian will sign the consent. I also inform Oncology about this. I provided information to Oncology Service. 8. Waiting for the guardian to sign consents and start the workout. 9. Zyprexa 2.5 mg p.o. b.i.d. at 17:00 and 21:00. 10. We will talk with the guardian regarding the refusal of the patient to have any further care for her cancer. 03/06- continue current tx. 03/07- change olanzapine to 5mg po qhs, back up IM olanzapine 5mg prn qhs if pt refuses oral olanzapine per sect 8. will re-consult oncology as pt now open to have biopsy. 03/08 oncology, Dr. An recommends new chest CT in about one month- 3 months after initial one, as she reviewed with radiology yesterday again and it may be scaring not nodules. continue current medications. 03/09 continue current tx. 03/10 continue tx. 03/11 no med changes. Pt asks about meds for cataracts, needs f/u OP and has been told this. 03/12 no med changes, adherent. Patient educated on: medication risk/benefits and therapeutic strategies Reason for contiued inpatient stay Substantial Risk for: inability to function, rapid decompensation and med/psych decompensation Time Spent With Patient Time: Total time managing care of this patient today ____ minutes.
[2022-03-12 18:00] VITALS: BP 148/68; PULSE 82; TEMP 36.3; O2SAT 96
[2022-03-12] MEDS: amLODIPine Besylate 10 MG TABLET PO (20:20)
[2022-03-12] MEDS: OLANZapine 5 MG TABLET PO (20:20)
[2022-03-12] MEDS: traZODone HCL 50 MG TABLET PO (20:20)
[2022-03-13 07:30] VITALS: BP 132/69; PULSE 69; RESP 15; TEMP 37.1; O2SAT 96
[2022-03-13] MEDS: hydroCHLOROthiazide 12.5 MG TABLET PO (10:04)
--- NOTE | 2022-03-13 15:19 | HO.PSYCHPN ---
Subjective Subjective Date of Service: 03/13/22 Reason For Visit: Mood Interim History: Discussed with team. Spoke with pt, says she is writing letters to Dr. Quinatnilla about my bladder control and my vision. Says she needs a new prescription for a cataract medication, however per team this has been explained to her multiple times that she needs to be seen by an interface control officer prior to obtaining any scripts. Pt says I have a long list of things I have to do i.e. write letter to the bank. Also says I need hearing aids. Mental Status Exam Mental Status Exam Narrative: appearance: casually groomed, good hygiene, in NAD Behavior: cooperative but also wants to end meeting soon after few questions Psychomotor: no overt retardation or agitation noted Speech: clear, normal rate/rhythm/volume, spontaneous TP: linear TC: enjoying the food here, feeling well here Mood: good Affect: brightens up at times SI: none HI: none Insight/judgment: poor x 2. Memory/cog: alert, not oriented to situation. Diagnostics Vital Signs (24Hr): Vital Signs - 24 hr 03/12/22 18:00 03/13/22 07:30 Temperature 97.4 F 98.8 F Pulse Rate 82 69 Respiratory Rate 15 Blood Pressure 148/68 H 132/69 Pulse Oximetry 96 96 Oxygen Delivery Method Room Air Room Air BMI result Body Mass Index 24.4 Labs Results: 01/20/22 08:00 01/20/22 08:00 Imaging Radiology Impressions: ITS Impressions Chest CT 01/10/22 15:11 IMPRESSION: Bilateral small pulmonary nodules, left greater than right. Biapical pleural and parenchymal scarring. 1.1 x 1.4 cm heterogeneous or semisolid right apical nodule, question related to pleural and parenchymal scarring. 1.5 cm partially calcified left thyroid nodule. Based on patient age in size, this does not meet criteria for follow-up. Moderate coronary artery calcification. Fleischner guidelines were followed. Medications Medications Current Medications Acetaminophen (Acetaminophen 325 Mg Tablet) 650 mg PO Q6H PRN PRN Reason: Headache/Pain Mild Scale (1-3) Al Hydroxide/Mg Hydroxide (Magnesium Hydrox/Alum Hydrox 30 Ml Oral.Susp) 30 ml PO Q6H PRN PRN Reason: Heartburn/Nausea Amlodipine Besylate (Amlodipine Besylate 10 Mg Tablet) 10 mg PO BEDTIME TIMOTEO; Protocol Last Admin: 03/12/22 20:20 Dose: 10 mg Donepezil HCl (Donepezil Hcl 5 Mg Tablet) 5 mg PO BEDTIME TIMOTEO Last Admin: 03/12/22 20:25 Dose: Not Given Hydrochlorothiazide (Hydrochlorothiazide 12.5 Mg Tablet) 12.5 mg PO DAILY TIMOTEO; Protocol Last Admin: 03/13/22 10:04 Dose: 12.5 mg Hydrocortisone (Hydrocortisone 1 % Cream 28.35 Gm Tube) 1 appl TOPICAL DAILY PRN PRN Reason: pruritic skin Hydroxyzine HCl (Hydroxyzine Hcl 25 Mg Tablet) 25 mg PO Q6H PRN PRN Reason: Anxiety Ketoconazole (Ketoconazole 2 % Shampoo 120 Ml Btl) 1 appl TOPICAL MoTh TIMOTEO; Protocol Last Admin: 03/09/22 15:59 Dose: Not Given Magnesium Hydroxide (Milk Of Magnesia 30 Ml Oral.Susp) 30 ml PO DAILY PRN PRN Reason: Constipation Olanzapine (Olanzapine 5 Mg Tablet) 5 mg PO BEDTIME TIMOTEO Last Admin: 03/12/22 20:20 Dose: 5 mg Olanzapine (Olanzapine 10 Mg Vial) 5 mg IM BEDTIME PRN PRN Reason: refusal of PO Oxybutynin Chloride (Oxybutynin Chloride Er 5 Mg Tab.Er.24) 5 mg PO BEDTIME TIMOTEO Last Admin: 03/12/22 20:24 Dose: Not Given Trazodone HCl (Trazodone Hcl 50 Mg Tablet) 50 mg PO BEDTIME PRN PRN Reason: Insomnia Last Admin: 03/12/22 20:20 Dose: 50 mg Allergies Allergies Allergy/AdvReac Type Severity Reaction Status Date / Time codeine Allergy Unknown Unknown Verified 12/15/21 18:29 sulfadiazine Allergy Unknown Unknown Verified 12/15/21 18:29 Assessment & Plan Assessment & Plan (1) Dementia: Status: Acute Code(s): F03.90 - Unspecified dementia, unspecified severity, without behavioral disturbance, psychotic disturbance, mood disturbance, and anxiety Plan The patient is an elderly female, recently , with poor social support, no help from family or a with and says, admitted into the hospital for psychotic symptoms elicited by paranoia against a major of [facility], failure to thrive and hoarding. Please see the HPI of the admission note for further details. Currently on Section 7 and 8 since the patient wants to leave and does not have any insight into her condition. 03/04 remains Hypertensive; will discuss with hospitalist whether to increase Hydrochlorothiazide or start other agent 03/05/22 continue to monitor, no changes at this time. Plan 1. Continue with Zyprexa as per court order. 2. Guardianship paperwork since the patient cannot take informed decisions. 3. The oncologist already review her case due to the masses of her both lungs but the patient refused to have the procedure of biopsy. 4. MOLST will be discussed again and try to get it sign. Apparently the patient does not have capacity to take informed decisions regarding her MOLST. 5. We need a guardian so we can offer all the medical treatment that she needs at this moment so far, she has refused any treatment or diagnostic procedures for the nodules on her chest. 6. We had guardianship and a allied health teacher was appointed. We will redirect the family to coordinate efforts. 7. I called today to her guardian and explained that she needs to have a biopsy, the guardian will sign the consent. I also inform Oncology about this. I provided information to Oncology Service. 8. Waiting for the guardian to sign consents and start the workout. 9. Zyprexa 2.5 mg p.o. b.i.d. at 17:00 and 21:00. 10. We will talk with the guardian regarding the refusal of the patient to have any further care for her cancer. 03/06- continue current tx. 03/07- change olanzapine to 5mg po qhs, back up IM olanzapine 5mg prn qhs if pt refuses oral olanzapine per sect 8. will re-consult oncology as pt now open to have biopsy. 03/08 oncology, Dr. An recommends new chest CT in about one month- 3 months after initial one, as she reviewed with radiology yesterday again and it may be scaring not nodules. continue current medications. 03/09 continue current tx. 03/10 continue tx. 03/11 no med changes. Pt asks about meds for cataracts, needs f/u OP and has been told this. 03/12 no med changes, adherent. 03/13 no med changes Patient educated on: therapeutic strategies Reason for contiued inpatient stay Substantial Risk for: inability to function, rapid decompensation and med/psych decompensation Time Spent With Patient Time: Total time managing care of this patient today ____ minutes.
[2022-03-13 18:00] VITALS: BP 144/70; PULSE 88; RESP 18; TEMP 36.6; O2SAT 95
[2022-03-13] MEDS: OLANZapine 5 MG TABLET PO (21:32)
[2022-03-13] MEDS: amLODIPine Besylate 10 MG TABLET PO (21:32)
[2022-03-13] MEDS: traZODone HCL 50 MG TABLET PO (21:32)
[2022-03-14 07:30] VITALS: BP 131/59; PULSE 67; RESP 16; TEMP 37.1; O2SAT 95
--- NOTE | 2022-03-14 11:26 | P.PNPSI_ITS ---
Subjective Subjective Date of Service: 03/14/22 Reason For Visit: Mood Subjective Notes: Section 7 and Section 8 Interim History: The nursing staff reported the patient was been very angry Alexy's she has realized that there is a dumpster her per [place] front of her home and most likely there are taking away all her belongings into the trash since she is a hoarder. On March 08 the oncologist had a meeting with her and she suggested to do a follow-up CT scan of the thorax next months. On interview the patient was very distressed with the news of her home. She complained of urinary incontinence so we will increase Oxybutin up 10 mg at night. She gave me 2 letters that she has written. Mental Status Exam Mental Status Exam Patient Appearance: Appropriate Patient Orientation: Person and Situation Level of Consciousness: Awake and Appropriate Patient Behavior: Guarded and Passive Mood Description: Withdrawn Affect Description: Labile Patient Cognition Impaired: Yes Ability to Follow Directions: Good Speech Pattern: Clear Hallucinations: None Delusions: Paranoid Ideation Thought Process: Distracted Thought Content: positive for [place], positive for Obsessional Thoughts, positive for Perseveration and positive for Poverty of Content Judgement: Poor Diagnostics Vital Signs (24Hr): Vital Signs - 24 hr 03/13/22 18:00 Temperature 97.9 F Pulse Rate 88 Respiratory Rate 18 Blood Pressure 144/70 H Pulse Oximetry 95 Oxygen Delivery Method Room Air BMI result Body Mass Index 24.4 Labs Results: 01/20/22 08:00 01/20/22 08:00 Imaging Radiology Impressions: ITS Impressions Chest CT 01/10/22 15:11 IMPRESSION: Bilateral small pulmonary nodules, left greater than right. Biapical pleural and parenchymal scarring. 1.1 x 1.4 cm heterogeneous or semisolid right apical nodule, question related to pleural and parenchymal scarring. 1.5 cm partially calcified left thyroid nodule. Based on patient age in size, this does not meet criteria for follow-up. Moderate coronary artery calcification. Fleischner guidelines were followed. Medications Medications Current Medications Acetaminophen (Acetaminophen 325 Mg Tablet) 650 mg PO Q6H PRN PRN Reason: Headache/Pain Mild Scale (1-3) Al Hydroxide/Mg Hydroxide (Magnesium Hydrox/Alum Hydrox 30 Ml Oral.Susp) 30 ml PO Q6H PRN PRN Reason: Heartburn/Nausea Amlodipine Besylate (Amlodipine Besylate 10 Mg Tablet) 10 mg PO BEDTIME TIMOTEO; Protocol Last Admin: 03/13/22 21:32 Dose: 10 mg Donepezil HCl (Donepezil Hcl 5 Mg Tablet) 5 mg PO BEDTIME TIMOTEO Last Admin: 03/13/22 21:35 Dose: Not Given Hydrochlorothiazide (Hydrochlorothiazide 12.5 Mg Tablet) 12.5 mg PO DAILY TIMOTEO; Protocol Last Admin: 03/14/22 10:33 Dose: Not Given Hydrocortisone (Hydrocortisone 1 % Cream 28.35 Gm Tube) 1 appl TOPICAL DAILY PRN PRN Reason: pruritic skin Hydroxyzine HCl (Hydroxyzine Hcl 25 Mg Tablet) 25 mg PO Q6H PRN PRN Reason: Anxiety Ketoconazole (Ketoconazole 2 % Shampoo 120 Ml Btl) 1 appl TOPICAL MoTh TIMOTEO; Protocol Last Admin: 03/13/22 23:03 Dose: Not Given Magnesium Hydroxide (Milk Of Magnesia 30 Ml Oral.Susp) 30 ml PO DAILY PRN PRN Reason: Constipation Olanzapine (Olanzapine 5 Mg Tablet) 5 mg PO BEDTIME TIMOTEO Last Admin: 03/13/22 21:32 Dose: 5 mg Olanzapine (Olanzapine 10 Mg Vial) 5 mg IM BEDTIME PRN PRN Reason: refusal of PO Oxybutynin Chloride (Oxybutynin Chloride Er 5 Mg Tab.Er.24) 10 mg PO BEDTIME TIMOTEO Trazodone HCl (Trazodone Hcl 50 Mg Tablet) 50 mg PO BEDTIME PRN PRN Reason: Insomnia Last Admin: 03/13/22 21:32 Dose: 50 mg Allergies Allergies Allergy/AdvReac Type Severity Reaction Status Date / Time codeine Allergy Unknown Unknown Verified 12/15/21 18:29 sulfadiazine Allergy Unknown Unknown Verified 12/15/21 18:29 Assessment & Plan Assessment & Plan (1) Dementia: Status: Acute Code(s): F03.90 - Unspecified dementia, unspecified severity, without behavioral disturbance, psychotic disturbance, mood disturbance, and anxiety Plan The patient is an elderly female, recently , with poor social support, no help from family or a with and says, admitted into the hospital for psychotic symptoms elicited by paranoia against a major of was maria Campos to thrive and hoarding. Please see the HPI of the admission note for further details. Currently on Section 7 and 8 since the patient wants to leave and does not have any insight into her condition. Plan 1. Continue with Zyprexa as per court order. 2. Guardianship paperwork since the patient cannot take informed decisions. 3. The oncologist already review her case due to the masses of her both lungs but the patient refused to have the procedure of biopsy. 4. MOLST will be discussed again and try to get it sign. Apparently the patient does not have capacity to take informed decisions regarding her MOLST. 5. We need a guardian so we can offer all the medical treatment that she needs at this moment so far, she has refused any treatment or diagnostic procedures for the nodules on her chest. 6. We had guardianship and a manufacturing machine operator was appointed. We will redirect the family to coordinate efforts. 7. I called today to her guardian and explained that she needs to have a biopsy, the guardian will sign the consent. I also inform Oncology about this. I provided information to Oncology Service. Oncology saw her on March 08 and they suggested to do a new CT scan of the chest next month in March. The patient has refused to do a biopsy and we will discuss this with the guardian. 8. Waiting for placement. Reason for contiued inpatient stay Substantial Risk for: inability to function, rapid decompensation and med/psych decompensation Time Spent With Patient Time: Total time managing care of this patient today __20__ minutes.
[2022-03-14 18:00] VITALS: BP 150/76; PULSE 64; RESP 18; TEMP 37; O2SAT 97
[2022-03-14] MEDS: OLANZapine 5 MG TABLET PO (20:30)
[2022-03-14] MEDS: amLODIPine Besylate 10 MG TABLET PO (20:31)
[2022-03-14] MEDS: traZODone HCL 50 MG TABLET PO (20:35)
[2022-03-14] MEDS: Donepezil HCl 5 MG TABLET PO (20:36)
[2022-03-15 10:08] VITALS: BP 147/72; PULSE 58; RESP 12; TEMP 36.8; O2SAT 95
[2022-03-15] MEDS: hydroCHLOROthiazide 12.5 MG TABLET PO (10:09)
--- NOTE | 2022-03-15 14:53 | P.PNPSI_ITS ---
Subjective Subjective Date of Service: 03/15/22 Reason For Visit: Mood Guardianship: Yes Interim History: The nursing staff reported no changes in her mental status she remains preoccupied with her home and possible discharge. On interview the patient denies new symptoms she wants to have a soft allergies consult. I explained her that the previous clinic can self at and terminated her since she was arrested for assaulting a staff member a few months ago. Waiting for placement Mental Status Exam Mental Status Exam Patient Appearance: Well Grooomed and Appropriate Patient Orientation: Person, Place and Situation Level of Consciousness: Awake and Appropriate Patient Behavior: Guarded and Cooperative Mood Description: Suspicious Affect Description: Constricted Patient Cognition Impaired: Yes Ability to Follow Directions: Good Speech Pattern: Clear Hallucinations: None Delusions: Not Present Thought Process: Distracted and Confusion Thought Content: positive for [place] and positive for Perseveration Judgement: Fair Diagnostics Vital Signs (24Hr): Vital Signs - 24 hr 03/14/22 18:00 03/15/22 10:08 Temperature 98.6 F 98.2 F Pulse Rate 64 58 Respiratory Rate 18 12 Blood Pressure 150/76 H 147/72 H Pulse Oximetry 97 95 Oxygen Delivery Method Room Air Room Air BMI result Body Mass Index 24.4 Labs Results: 01/20/22 08:00 01/20/22 08:00 Imaging Radiology Impressions: ITS Impressions Chest CT 01/10/22 15:11 IMPRESSION: Bilateral small pulmonary nodules, left greater than right. Biapical pleural and parenchymal scarring. 1.1 x 1.4 cm heterogeneous or semisolid right apical nodule, question related to pleural and parenchymal scarring. 1.5 cm partially calcified left thyroid nodule. Based on patient age in size, this does not meet criteria for follow-up. Moderate coronary artery calcification. Fleischner guidelines were followed. Medications Medications Current Medications Acetaminophen (Acetaminophen 325 Mg Tablet) 650 mg PO Q6H PRN PRN Reason: Headache/Pain Mild Scale (1-3) Al Hydroxide/Mg Hydroxide (Magnesium Hydrox/Alum Hydrox 30 Ml Oral.Susp) 30 ml PO Q6H PRN PRN Reason: Heartburn/Nausea Amlodipine Besylate (Amlodipine Besylate 10 Mg Tablet) 10 mg PO BEDTIME TIMOTEO; Protocol Last Admin: 03/14/22 20:31 Dose: 10 mg Donepezil HCl (Donepezil Hcl 5 Mg Tablet) 5 mg PO BEDTIME TIMOTEO Last Admin: 03/14/22 20:36 Dose: 5 mg Hydrochlorothiazide (Hydrochlorothiazide 12.5 Mg Tablet) 12.5 mg PO DAILY TIMOTEO; Protocol Last Admin: 03/15/22 10:09 Dose: 12.5 mg Hydrocortisone (Hydrocortisone 1 % Cream 28.35 Gm Tube) 1 appl TOPICAL DAILY PRN PRN Reason: pruritic skin Hydroxyzine HCl (Hydroxyzine Hcl 25 Mg Tablet) 25 mg PO Q6H PRN PRN Reason: Anxiety Ketoconazole (Ketoconazole 2 % Shampoo 120 Ml Btl) 1 appl TOPICAL MoTh TIMOTEO; Protocol Last Admin: 03/13/22 23:03 Dose: Not Given Magnesium Hydroxide (Milk Of Magnesia 30 Ml Oral.Susp) 30 ml PO DAILY PRN PRN Reason: Constipation Olanzapine (Olanzapine 5 Mg Tablet) 5 mg PO BEDTIME TIMOTEO Last Admin: 03/14/22 20:30 Dose: 5 mg Olanzapine (Olanzapine 10 Mg Vial) 5 mg IM BEDTIME PRN PRN Reason: refusal of PO Oxybutynin Chloride (Oxybutynin Chloride Er 5 Mg Tab.Er.24) 10 mg PO BEDTIME TIMOTEO Last Admin: 03/14/22 20:33 Dose: 10 mg Trazodone HCl (Trazodone Hcl 50 Mg Tablet) 50 mg PO BEDTIME PRN PRN Reason: Insomnia Last Admin: 03/14/22 20:35 Dose: 50 mg Allergies Allergies Allergy/AdvReac Type Severity Reaction Status Date / Time codeine Allergy Unknown Unknown Verified 12/15/21 18:29 sulfadiazine Allergy Unknown Unknown Verified 12/15/21 18:29 Assessment & Plan Assessment & Plan (1) Dementia: Status: Acute Code(s): F03.90 - Unspecified dementia, unspecified severity, without behavioral distu rbance, psychotic disturbance, mood disturbance, and anxiety Plan The patient is an elderly female, recently , with poor social support, no help from family or a with and says, admitted into the hospital for psychotic symptoms elicited by paranoia against a major of was [place], failure to thrive and hoarding. Please see the HPI of the admission note for further details. Currently on Section 7 and 8 since the patient wants to leave and does not have any insight into her condition. Plan 1. Continue with Zyprexa as per court order. 2. Guardianship paperwork since the patient cannot take informed decisions. 3. The oncologist already review her case due to the masses of her both lungs but the patient refused to have the procedure of biopsy. 4. MOLST will be discussed again and try to get it sign. Apparently the patient does not have capacity to take informed decisions regarding her MOLST. 5. We need a guardian so we can offer all the medical treatment that she needs at this moment so far, she has refused any treatment or diagnostic procedures for the nodules on her chest. 6. We had guardianship and a president practicing urologist was appointed. We will redirect the family to coordinate efforts. 7. I called today to her guardian and explained that she needs to have a biopsy, the guardian will sign the consent. I also inform Oncology about this. I provided information to Oncology Service. Oncology saw her on March 08 and they suggested to do a new CT scan of the chest next month in March. The patient has refused to do a biopsy and we will discuss this with the guardian. 8. Waiting for placement. Reason for contiued inpatient stay Substantial Risk for: inability to function, rapid decompensation and med/psych decompensation Time Spent With Patient Time: Total time managing care of this patient today __20__ minutes.
[2022-03-15 18:00] VITALS: BP 165/76; PULSE 65; RESP 16; TEMP 36.4; O2SAT 98
[2022-03-15] MEDS: Donepezil HCl 5 MG TABLET PO (20:10)
[2022-03-15] MEDS: amLODIPine Besylate 10 MG TABLET PO (20:10)
[2022-03-15] MEDS: OLANZapine 5 MG TABLET PO (20:11)
[2022-03-16 06:00] VITALS: BP 143/75; PULSE 66; RESP 16; TEMP 36.6; O2SAT 95
[2022-03-16] MEDS: hydroCHLOROthiazide 12.5 MG TABLET PO (11:08)
--- NOTE | 2022-03-16 16:36 | HO.PSYCHPN ---
Subjective Subjective Date of Service: 03/16/22 Reason For Visit: Mood Subjective Notes: Conditional Voluntary Interim History: The nursing staff reported that the patient slept last night 8 hours. She refused to take her deter open to tablets and took only 1. Today in the morning she was soiled and she wanted to go to take her breakfast without putting her pants. We need to redirected and she was agitated and angry. On interview she looks pleasantly confused in the afternoon. She stated that taking 2 Ditropans make her feel ill and she agreed to lower to 1. Most likely we will have to consult to Urology Mental Status Exam Mental Status Exam Patient Appearance: Well Grooomed Patient Orientation: Person and Situation Level of Consciousness: Awake and Appropriate Patient Behavior: Guarded and Passive Mood Description: Constricted Affect Description: Labile Patient Cognition Impaired: Yes Ability to Follow Directions: Good Speech Pattern: Clear Hallucinations: None Delusions: Not Present Thought Process: Distracted and Linear Thought Content: positive for [place] Judgement: Fair Diagnostics Vital Signs (24Hr): Vital Signs - 24 hr 03/15/22 18:00 03/16/22 06:00 Temperature 97.6 F 97.8 F Pulse Rate 65 66 Respiratory Rate 16 16 Blood Pressure 165/76 H 143/75 H Pulse Oximetry 98 95 Oxygen Delivery Method Room Air Room Air BMI result Body Mass Index 24.4 Labs Results: 01/20/22 08:00 01/20/22 08:00 Imaging Radiology Impressions: ITS Impressions Chest CT 01/10/22 15:11 IMPRESSION: Bilateral small pulmonary nodules, left greater than right. Biapical pleural and parenchymal scarring. 1.1 x 1.4 cm heterogeneous or semisolid right apical nodule, question related to pleural and parenchymal scarring. 1.5 cm partially calcified left thyroid nodule. Based on patient age in size, this does not meet criteria for follow-up. Moderate coronary artery calcification. Fleischner guidelines were followed. Medications Medications Current Medications Amlodipine Besylate (Amlodipine Besylate 10 Mg Tablet) 10 mg PO BEDTIME TIMOTEO; Protocol Last Admin: 03/15/22 20:10 Dose: 10 mg Donepezil HCl (Donepezil Hcl 5 Mg Tablet) 5 mg PO BEDTIME TIMOTEO Last Admin: 03/15/22 20:10 Dose: 5 mg Hydrochlorothiazide (Hydrochlorothiazide 12.5 Mg Tablet) 12.5 mg PO DAILY TIMOTEO; Protocol Last Admin: 03/16/22 11:08 Dose: 12.5 mg Hydrocortisone (Hydrocortisone 1 % Cream 28.35 Gm Tube) 1 appl TOPICAL DAILY PRN PRN Reason: pruritic skin Olanzapine (Olanzapine 5 Mg Tablet) 5 mg PO BEDTIME TIMOTEO Last Admin: 03/15/22 20:11 Dose: 5 mg Olanzapine (Olanzapine 10 Mg Vial) 5 mg IM BEDTIME PRN PRN Reason: refusal of PO Oxybutynin Chloride (Oxybutynin Chloride Er 5 Mg Tab.Er.24) 10 mg PO BEDTIME TIMOTEO Last Admin: 03/15/22 22:20 Dose: 5 mg Allergies Allergies Allergy/AdvReac Type Severity Reaction Status Date / Time codeine Allergy Unknown Unknown Verified 12/15/21 18:29 sulfadiazine Allergy Unknown Unknown Verified 12/15/21 18:29 Assessment & Plan Assessment & Plan (1) Dementia: Status: Acute Code(s): F03.90 - Unspecified dementia, unspecified severity, without behavioral disturbance, psychotic disturbance, mood disturbance, and anxiety Plan The patient is an elderly female, recently , with poor social support, no help from family or a with and says, admitted into the hospital for psychotic symptoms elicited by paranoia against a major of [facility], failure to thrive and hoarding. Please see the HPI of the admission note for further details. Currently on Section 7 and 8 since the patient wants to leave and does not have any insight into her condition. Plan 1. Continue with Zyprexa as per court order. 2. Guardianship paperwork since the patient cannot take informed decisions. 3. The oncologist already review her case due to the masses of her both lungs but the patient refused to have the procedure of biopsy. 4. MOLST will be discussed again and try to get it sign. Apparently the patient does not have capacity to take informed decisions regarding her MOLST. 5. We need a guardian so we can offer all the medical treatment that she needs at this moment so far, she has refused any treatment or diagnostic procedures for the nodules on her chest. 6. We had guardianship and a trial lawyer was appointed. We will redirect the family to coordinate efforts. 7. I called today to her guardian and explained that she needs to have a biopsy, the guardian will sign the consent. I also inform Oncology about this. I provided information to Oncology Service. Oncology saw her on March 08 and they suggested to do a new CT scan of the chest next month in March. The patient has refused to do a biopsy and we will discuss this with the guardian. 8. Waiting for placement. 9. Lower Ditropan xl to 5 mg. Reason for contiued inpatient stay Substantial Risk for: inability to function, rapid decompensation and med/psych decompensation Time Spent With Patient Time: Total time managing care of this patient today _20___ minutes.
[2022-03-16 19:11] VITALS: BP 134/67; PULSE 67; RESP 18; TEMP 36.1; O2SAT 96
[2022-03-16] MEDS: OLANZapine 5 MG TABLET PO (20:18)
[2022-03-16] MEDS: Donepezil HCl 5 MG TABLET PO (20:19)
[2022-03-16] MEDS: amLODIPine Besylate 10 MG TABLET PO (20:19)
--- NOTE | 2022-03-17 15:47 | P.PNPSI_ITS ---
Subjective Subjective Date of Service: 03/17/22 Reason For Visit: Mood Subjective Notes: Conditional Voluntary Interim History: The nursing staff reported the patient has been more difficult to redirect yesterday. A little more snappy but still redirectable. On interview the patient denies new symptoms still with poor short-term memory able to remember the conversation of yesterday. Mental Status Exam Mental Status Exam Patient Appearance: Appropriate Patient Orientation: Person and Situation Level of Consciousness: Awake and Appropriate Patient Behavior: Guarded and Passive Mood Description: Withdrawn Affect Description: Constricted Patient Cognition Impaired: Yes Ability to Follow Directions: Good Speech Pattern: Appropriate Hallucinations: None Delusions: Not Present Thought Process: Evasive Thought Content: positive for [place], positive for Perseveration and positive for Poverty of Content Judgement: Fair Diagnostics Vital Signs (24Hr): Vital Signs - 24 hr 03/16/22 19:11 Temperature 97.0 F Pulse Rate 67 Respiratory Rate 18 Blood Pressure 134/67 Pulse Oximetry 96 Oxygen Delivery Method Room Air BMI result Body Mass Index 24.4 Labs Results: 01/20/22 08:00 01/20/22 08:00 Imaging Radiology Impressions: ITS Impressions Chest CT 01/10/22 15:11 IMPRESSION: Bilateral small pulmonary nodules, left greater than right. Biapical pleural and parenchymal scarring. 1.1 x 1.4 cm heterogeneous or semisolid right apical nodule, question related to pleural and parenchymal scarring. 1.5 cm partially calcified left thyroid nodule. Based on patient age in size, this does not meet criteria for follow-up. Moderate coronary artery calcification. Fleischner guidelines were followed. Medications Medications Current Medications Amlodipine Besylate (Amlodipine Besylate 10 Mg Tablet) 10 mg PO BEDTIME TIMOTEO; Protocol Last Admin: 03/16/22 20:19 Dose: 10 mg Donepezil HCl (Donepezil Hcl 5 Mg Tablet) 5 mg PO BEDTIME TIMOTEO Last Admin: 03/16/22 20:19 Dose: 5 mg Hydrochlorothiazide (Hydrochlorothiazide 12.5 Mg Tablet) 12.5 mg PO DAILY TIMOTEO; Protocol Last Admin: 03/17/22 10:12 Dose: Not Given Hydrocortisone (Hydrocortisone 1 % Cream 28.35 Gm Tube) 1 appl TOPICAL DAILY PRN PRN Reason: pruritic skin Olanzapine (Olanzapine 5 Mg Tablet) 5 mg PO BEDTIME TIMOTEO Last Admin: 12/29/22 20:18 Dose: 5 mg Olanzapine (Olanzapine 10 Mg Vial) 5 mg IM BEDTIME PRN PRN Reason: refusal of PO Oxybutynin Chloride (Oxybutynin Chloride Er 5 Mg Tab.Er.24) 5 mg PO BEDTIME TIMOTEO Last Admin: 03/16/22 20:18 Dose: 5 mg Allergies Allergies Allergy/AdvReac Type Severity Reaction Status Date / Time codeine Allergy Unknown Unknown Verified 12/15/21 18:29 sulfadiazine Allergy Unknown Unknown Verified 12/15/21 18:29 Assessment & Plan Assessment & Plan (1) Dementia: Status: Acute Code(s): F03.90 - Unspecified dementia, unspecified severity, without behavioral dis turbance, psychotic disturbance, mood disturbance, and anxiety Plan The patient is an elderly female, recently , with poor social support, no help from family or a with and says, admitted into the hospital for psychotic symptoms elicited by paranoia against a major of was [place], failure to thrive and hoarding. Please see the HPI of the admission note for further details. Currently on Section 7 and 8 since the patient wants to leave and does not have any insight into her condition. Plan 1. Continue with Zyprexa as per court order. 2. Guardianship paperwork since the patient cannot take informed decisions. 3. The oncologist already review her case due to the masses of her both lungs but the patient refused to have the procedure of biopsy. 4. MOLST will be discussed again and try to get it sign. Apparently the patient does not have capacity to take informed decisions regarding her MOLST. 5. We need a guardian so we can offer all the medical treatment that she needs at this moment so far, she has refused any treatment or diagnostic procedures for the nodules on her chest. 6. We had guardianship and a abrasive water jet cutter operator was appointed. We will redirect the family to coordinate efforts. 7. I called today to her guardian and explained that she needs to have a biopsy, the guardian will sign the consent. I also inform Oncology about this. I provided information to Oncology Service. Oncology saw her on March 08 and they suggested to do a new CT scan of the chest next month in March. The patient has refused to do a biopsy and we will discuss this with the guardian. 8. Waiting for placement. 9. Lower Ditropan xl to 5 mg. Reason for contiued inpatient stay Substantial Risk for: inability to function, rapid decompensation and med/psych decompensation Time Spent With Patient Time: Total time managing care of this patient today __20__ minutes.
[2022-03-17 18:00] VITALS: BP 152/64; PULSE 64; RESP 16; TEMP 36.6; O2SAT 96
[2022-03-17] MEDS: Donepezil HCl 5 MG TABLET PO (20:10)
[2022-03-17] MEDS: OLANZapine 5 MG TABLET PO (20:10)
[2022-03-17] MEDS: amLODIPine Besylate 10 MG TABLET PO (20:10)
[2022-03-18] MEDS: hydroCHLOROthiazide 12.5 MG TABLET PO (09:02)
[2022-03-18 18:00] VITALS: BP 140/74; PULSE 67; RESP 18; TEMP 36.9; O2SAT 95
--- NOTE | 2022-03-18 20:41 | HO.PSYCHPN ---
Subjective Subjective Date of Service: 03/18/22 Reason For Visit: Mood Interim History: Team report they are attentive and supportive to Betzaida as she has endured multiple significant losses since her admission. She has intermittent outbursts of emotion and is incontinent at times. Guardianship with Farooq's in place. Today, she discussed drafting a letter to the mayor to complain about the dumpster placed in front of her home. He just wants all of our land . Attentive to one of her peers and offering of her support to him. Mental Status Exam Mental Status Exam Patient Appearance: Appropriate Patient Orientation: Person and Situation Level of Consciousness: Awake and Appropriate Patient Behavior: Guarded and Passive Mood Description: Withdrawn Affect Description: Constricted Patient Cognition Impaired: Yes Ability to Follow Directions: Good Speech Pattern: Appropriate Hallucinations: None Delusions: Not Present Thought Process: Evasive Thought Content: positive for [place], positive for Perseveration and positive for Poverty of Content Judgement: Fair Diagnostics Vital Signs (24Hr): BMI result Body Mass Index 24.4 Labs Results: 01/20/22 08:00 01/20/22 08:00 Imaging Radiology Impressions: ITS Impressions Chest CT 01/10/22 15:11 IMPRESSION: Bilateral small pulmonary nodules, left greater than right. Biapical pleural and parenchymal scarring. 1.1 x 1.4 cm heterogeneous or semisolid right apical nodule, question related to pleural and parenchymal scarring. 1.5 cm partially calcified left thyroid nodule. Based on patient age in size, this does not meet criteria for follow-up. Moderate coronary artery calcification. Fleischner guidelines were followed. Medications Medications Current Medications Amlodipine Besylate (Amlodipine Besylate 10 Mg Tablet) 10 mg PO BEDTIME TIMOTEO; Protocol Last Admin: 03/17/22 20:10 Dose: 10 mg Donepezil HCl (Donepezil Hcl 5 Mg Tablet) 5 mg PO BEDTIME TIMOTEO Last Admin: 03/17/22 20:10 Dose: 5 mg Hydrochlorothiazide (Hydrochlorothiazide 12.5 Mg Tablet) 12.5 mg PO DAILY TIMOTEO; Protocol Last Admin: 03/18/22 09:02 Dose: 12.5 mg Hydrocortisone (Hydrocortisone 1 % Cream 28.35 Gm Tube) 1 appl TOPICAL DAILY PRN PRN Reason: pruritic skin Olanzapine (Olanzapine 5 Mg Tablet) 5 mg PO BEDTIME TIMOTEO Last Admin: 03/17/22 20:10 Dose: 5 mg Olanzapine (Olanzapine 10 Mg Vial) 5 mg IM BEDTIME PRN PRN Reason: refusal of PO Oxybutynin Chloride (Oxybutynin Chloride Er 5 Mg Tab.Er.24) 5 mg PO BEDTIME TIMOTEO Last Admin: 03/17/22 20:10 Dose: 5 mg Allergies Allergies Allergy/AdvReac Type Severity Reaction Status Date / Time codeine Allergy Unknown Unknown Verified 12/15/21 18:29 sulfadiazine Allergy Unknown Unknown Verified 12/15/21 18:29 Assessment & Plan Assessment & Plan (1) Dementia: Status: Acute Code(s): F03.90 - Unspecified dementia, unspecified severity, without behavioral disturbance, psychotic disturbance, mood disturbance, and anxiety Plan The patient is an elderly female, recently , with poor social support, no help from family or a with and says, admitted into the hospital for psychotic symptoms elicited by paranoia against a major of [facility], failure to thrive and hoarding. Please see the HPI of the admission note for further details. Currently on Section 7 and 8 since the patient wants to leave and does not have any insight into her condition. Plan 1. Continue with Zyprexa as per court order. 2. Guardianship paperwork since the patient cannot take informed decisions. 3. The oncologist already review her case due to the masses of her both lungs but the patient refused to have the procedure of biopsy. 4. MOLST will be discussed again and try to get it sign. Apparently the patient does not have capacity to take informed decisions regarding her MOLST. 5. We need a guardian so we can offer all the medical treatment that she needs at this moment so far, she has refused any treatment or diagnostic procedures for the nodules on her chest. 6. We had guardianship and a heel seat trimmer was appointed. We will redirect the family to coordinate efforts. 7. I called today to her guardian and explained that she needs to have a biopsy, the guardian will sign the consent. I also inform Oncology about this. I provided information to Oncology Service. Oncology saw her on March 08 and they suggested to do a new CT scan of the chest next month in March. The patient has refused to do a biopsy and we will discuss this with the guardian. 8. Waiting for placement. 9. Lower Ditropan xl to 5 mg. 03/18/22- Continue current plan. Reason for contiued inpatient stay Substantial Risk for: med/psych decompensation Time Spent With Patient Time: Total time managing care of this patient today ____ minutes.
[2022-03-18] MEDS: OLANZapine 5 MG TABLET PO (20:53)
[2022-03-18] MEDS: Donepezil HCl 5 MG TABLET PO (20:56)
[2022-03-18] MEDS: traZODone HCL 50 MG TABLET PO (20:56)
[2022-03-18] MEDS: amLODIPine Besylate 10 MG TABLET PO (20:59)
[2022-03-19 06:00] VITALS: BP 158/77; PULSE 78; RESP 17; TEMP 36.2; O2SAT 92
--- NOTE | 2022-03-19 14:25 | HO.PSYCHPN ---
Subjective Subjective Date of Service: 03/19/22 Reason For Visit: Mood Guardianship: Yes Medical Problems Affecting Mental Status: No Interim History: Pt tells team that today is her wedding anniversary. She is resting when seen this a.m. Awakens easily, spontaneous smile, immediately engages in talking about how she is gaining ground with the city as they put a dumpster on her property. Denies current symptoms of concern. Medication Compliance: Yes Side effects from medications: No Attending Groups: Yes Review of Systems Acute medical concerns: No Medical Review of Systems: unchanged Mental Status Exam Mental Status Exam Patient Appearance: Appropriate Patient Orientation: Person and Situation Level of Consciousness: Awake and Appropriate Patient Behavior: Guarded and Passive Mood Description: Withdrawn Affect Description: Constricted Patient Cognition Impaired: Yes Ability to Follow Directions: Good Speech Pattern: Appropriate Hallucinations: None Delusions: Not Present Thought Process: Evasive Thought Content: positive for [place], positive for [place] and positive for Poverty of Content Judgement: Fair Diagnostics Vital Signs (24Hr): Vital Signs - 24 hr 03/18/22 18:00 03/19/22 06:00 Temperature 98.4 F 97.1 F Pulse Rate 67 78 Respiratory Rate 18 17 Blood Pressure 140/74 H 158/77 H Pulse Oximetry 95 92 Oxygen Delivery Method Room Air Room Air BMI result Body Mass Index 24.4 Labs Results: 01/20/22 08:00 01/20/22 08:00 Imaging Radiology Impressions: ITS Impressions Chest CT 01/10/22 15:11 IMPRESSION: Bilateral small pulmonary nodules, left greater than right. Biapical pleural and parenchymal scarring. 1.1 x 1.4 cm heterogeneous or semisolid right apical nodule, question related to pleural and parenchymal scarring. 1.5 cm partially calcified left thyroid nodule. Based on patient age in size, this does not meet criteria for follow-up. Moderate coronary artery calcification. Fleischner guidelines were followed. Medications Medications Current Medications Amlodipine Besylate (Amlodipine Besylate 10 Mg Tablet) 10 mg PO BEDTIME TIMOTEO; Protocol Last Admin: 03/18/22 20:59 Dose: 10 mg Donepezil HCl (Donepezil Hcl 5 Mg Tablet) 5 mg PO BEDTIME TIMOTEO Last Admin: 03/18/22 20:56 Dose: 5 mg Hydrochlorothiazide (Hydrochlorothiazide 12.5 Mg Tablet) 12.5 mg PO DAILY TIMOTEO; Protocol Last Admin: 03/19/22 11:09 Dose: Not Given Hydrocortisone (Hydrocortisone 1 % Cream 28.35 Gm Tube) 1 appl TOPICAL DAILY PRN PRN Reason: pruritic skin Olanzapine (Olanzapine 5 Mg Tablet) 5 mg PO BEDTIME TIMOTEO Last Admin: 03/18/22 20:53 Dose: 5 mg Olanzapine (Olanzapine 10 Mg Vial) 5 mg IM BEDTIME PRN PRN Reason: refusal of PO Oxybutynin Chloride (Oxybutynin Chloride Er 5 Mg Tab.Er.24) 5 mg PO BEDTIME TIMOTEO Last Admin: 03/18/22 20:56 Dose: 5 mg Trazodone HCl (Trazodone Hcl 50 Mg Tablet) 50 mg PO BEDTIME PRN PRN Reason: insomnia Last Admin: 03/18/22 20:56 Dose: 50 mg Allergies Allergies Allergy/AdvReac Type Severity Reaction Status Date / Time codeine Allergy Unknown Unknown Verified 12/15/21 18:29 sulfadiazine Allergy Unknown Unknown Verified 12/15/21 18:29 Assessment & Plan Assessment & Plan (1) Dementia: Status: Acute Code(s): F03.90 - Unspecified dementia, unspecified severity, without behavioral disturbance, psychotic disturbance, mood disturbance, and anxiety Plan The patient is an elderly female, recently , with poor social support, no help from family or a with and says, admitted into the hospital for psychotic symptoms elicited by paranoia against a major of [facility], failure to thrive and hoarding. Please see the HPI of the admission note for further details. Currently on Section 7 and 8 since the patient wants to leave and does not have any insight into her condition. Plan 1. Continue with Zyprexa as per court order. 2. Guardianship paperwork since the patient cannot take informed decisions. 3. The oncologist already review her case due to the masses of her both lungs but the patient refused to have the procedure of biopsy. 4. MOLST will be discussed again and try to get it sign. Apparently the patient does not have capacity to take informed decisions regarding her MOLST. 5. We need a guardian so we can offer all the medical treatment that she needs at this moment so far, she has refused any treatment or diagnostic procedures for the nodules on her chest. 6. We had guardianship and a manager human resources was appointed. We will redirect the family to coordinate efforts. 7. I called today to her guardian and explained that she needs to have a biopsy, the guardian will sign the consent. I also inform Oncology about this. I provided information to Oncology Service. Oncology saw her on March 08 and they suggested to do a new CT scan of the chest next month in March. The patient has refused to do a biopsy and we will discuss this with the guardian. 8. Waiting for placement. 9. Lower Ditropan xl to 5 mg. 03/18/22- Continue current plan. 03/19/22- Continue current plan. Reason for contiued inpatient stay Substantial Risk for: med/psych decompensation Time Spent With Patient Time: Total time managing care of this patient today __15__ minutes.
[2022-03-19] MEDS: amLODIPine Besylate 10 MG TABLET PO (21:58)
[2022-03-19] MEDS: traZODone HCL 50 MG TABLET PO (21:58)
[2022-03-19] MEDS: Donepezil HCl 5 MG TABLET PO (21:58)
[2022-03-19] MEDS: OLANZapine 5 MG TABLET PO (21:58)
[2022-03-19 22:00] VITALS: BP 168/87; PULSE 78; RESP 20; TEMP 36.3; O2SAT 93
[2022-03-20 06:00] VITALS: BP 146/72
[2022-03-20] MEDS: hydroCHLOROthiazide 12.5 MG TABLET PO (09:08)
[2022-03-20 18:00] VITALS: BP 143/70; PULSE 64; RESP 18; TEMP 36.7; O2SAT 95
--- NOTE | 2022-03-20 18:07 | HO.PSYCHPN ---
Subjective Subjective Date of Service: 03/20/22 Reason For Visit: Mood Interim History: Discussed with team. Actively engaged in writing letters this afternoon. Precise, focused and detail oriented. Team reports no outbursts of emotion. Betzaida has been calm and interactive. Medication Compliance: Yes Side effects from medications: No Attending Groups: Yes Review of Systems Acute medical concerns: No Medical Review of Systems: unchanged Mental Status Exam Mental Status Exam Patient Appearance: Appropriate Patient Orientation: Person and Situation Level of Consciousness: Awake and Appropriate Patient Behavior: Guarded and Passive Mood Description: Withdrawn Affect Description: Constricted Patient Cognition Impaired: Yes Ability to Follow Directions: Good Speech Pattern: Appropriate Hallucinations: None Delusions: Not Present Thought Process: Evasive Thought Content: positive for [place], positive for [place] and positive for Poverty of Content Judgement: Fair Diagnostics Vital Signs (24Hr): Vital Signs - 24 hr 03/19/22 22:00 03/20/22 06:00 Temperature 97.4 F Pulse Rate 78 Respiratory Rate 20 Blood Pressure 168/87 H 146/72 H Pulse Oximetry 93 Oxygen Delivery Method Room Air BMI result Body Mass Index 24.4 Labs Results: 01/20/22 08:00 01/20/22 08:00 Imaging Radiology Impressions: ITS Impressions Chest CT 01/10/22 15:11 IMPRESSION: Bilateral small pulmonary nodules, left greater than right. Biapical pleural and parenchymal scarring. 1.1 x 1.4 cm heterogeneous or semisolid right apical nodule, question related to pleural and parenchymal scarring. 1.5 cm partially calcified left thyroid nodule. Based on patient age in size, this does not meet criteria for follow-up. Moderate coronary artery calcification. Fleischner guidelines were followed. Medications Medications Current Medications Amlodipine Besylate (Amlodipine Besylate 10 Mg Tablet) 10 mg PO BEDTIME TIMOTEO; Protocol Last Admin: 03/19/22 21:58 Dose: 10 mg Donepezil HCl (Donepezil Hcl 5 Mg Tablet) 5 mg PO BEDTIME TIMOTEO Last Admin: 03/19/22 21:58 Dose: 5 mg Hydrochlorothiazide (Hydrochlorothiazide 12.5 Mg Tablet) 12.5 mg PO DAILY TIMOTEO; Protocol Last Admin: 03/20/22 09:08 Dose: 12.5 mg Hydrocortisone (Hydrocortisone 1 % Cream 28.35 Gm Tube) 1 appl TOPICAL DAILY PRN PRN Reason: pruritic skin Olanzapine (Olanzapine 5 Mg Tablet) 5 mg PO BEDTIME TIMOTEO Last Admin: 03/19/22 21:58 Dose: 5 mg Olanzapine (Olanzapine 10 Mg Vial) 5 mg IM BEDTIME PRN PRN Reason: refusal of PO Oxybutynin Chloride (Oxybutynin Chloride Er 5 Mg Tab.Er.24) 5 mg PO BEDTIME TIMOTEO Last Admin: 03/19/22 21:58 Dose: 5 mg Trazodone HCl (Trazodone Hcl 50 Mg Tablet) 50 mg PO BEDTIME PRN PRN Reason: insomnia Last Admin: 03/19/22 21:58 Dose: 50 mg Allergies Allergies Allergy/AdvReac Type Severity Reaction Status Date / Time codeine Allergy Unknown Unknown Verified 12/15/21 18:29 sulfadiazine Allergy Unknown Unknown Verified 12/15/21 18:29 Assessment & Plan Assessment & Plan (1) Dementia: Status: Acute Code(s): F03.90 - Unspecified dementia, unspecified severity, without behavioral disturbance, psychotic disturbance, mood disturbance, and anxiety Plan The patient is an elderly female, recently , with poor social support, no help from family or a with and says, admitted into the hospital for psychotic symptoms elicited by paranoia against a major of [facility], failure to thrive and hoarding. Please see the HPI of the admission note for further details. Currently on Section 7 and 8 since the patient wants to leave and does not have any insight into her condition. Plan 1. Continue with Zyprexa as per court order. 2. Guardianship paperwork since the patient cannot take informed decisions. 3. The oncologist already review her case due to the masses of her both lungs but the patient refused to have the procedure of biopsy. 4. MOLST will be discussed again and try to get it sign. Apparently the patient does not have capacity to take informed decisions regarding her MOLST. 5. We need a guardian so we can offer all the medical treatment that she needs at this moment so far, she has refused any treatment or diagnostic procedures for the nodules on her chest. 6. We had guardianship and a cyber security was appointed. We will redirect the family to coordinate efforts. 7. I called today to her guardian and explained that she needs to have a biopsy, the guardian will sign the consent. I also inform Oncology about this. I provided information to Oncology Service. Oncology saw her on March 08 and they suggested to do a new CT scan of the chest next month in March. The patient has refused to do a biopsy and we will discuss this with the guardian. 8. Waiting for placement. 9. Lower Ditropan xl to 5 mg. 03/18/22- Continue current plan. 03/19/22- Continue current plan. 03/20/22- Continue current plan Informed Consent: does not understand Reason for contiued inpatient stay Substantial Risk for: med/psych decompensation Time Spent With Patient Time: Total time managing care of this patient today __15__ minutes.
[2022-03-20] MEDS: Donepezil HCl 5 MG TABLET PO (20:12)
[2022-03-20] MEDS: amLODIPine Besylate 10 MG TABLET PO (20:12)
[2022-03-20] MEDS: OLANZapine 5 MG TABLET PO (20:13)
[2022-03-20] MEDS: traZODone HCL 50 MG TABLET PO (20:31)
[2022-03-21 08:25] VITALS: BP 146/57; PULSE 60; RESP 18; TEMP 36.2; O2SAT 97
[2022-03-21] MEDS: hydroCHLOROthiazide 12.5 MG TABLET PO (08:28)
--- NOTE | 2022-03-21 15:21 | P.PNPSI_ITS ---
Subjective Subjective Date of Service: 03/21/22 Reason For Visit: Mood Subjective Notes: Conditional Voluntary Interim History: The nursing staff reported the patient has been agitated the times, she slept well with trazodone last night. On interview the patient denies new symptoms, confused, unable to remember prior conversations. Mental Status Exam Mental Status Exam Patient Appearance: Well Grooomed and Appropriate Patient Orientation: Person and Situation Level of Consciousness: Awake Patient Behavior: Guarded and Cooperative Mood Description: Suspicious Affect Description: Constricted Patient Cognition Impaired: Yes Ability to Follow Directions: Fair Speech Pattern: Clear Hallucinations: None Delusions: Paranoid Ideation Thought Process: Distracted and Slowed Thinking Thought Content: positive for [place] Judgement: Fair Diagnostics Vital Signs (24Hr): Vital Signs - 24 hr 03/20/22 18:00 Temperature 98.0 F Pulse Rate 64 Respiratory Rate 18 Blood Pressure 143/70 H Pulse Oximetry 95 Oxygen Delivery Method Room Air BMI result Body Mass Index 24.4 Labs Results: 01/20/22 08:00 01/20/22 08:00 Imaging Radiology Impressions: ITS Impressions Chest CT 01/10/22 15:11 IMPRESSION: Bilateral small pulmonary nodules, left greater than right. Biapical pleural and parenchymal scarring. 1.1 x 1.4 cm heterogeneous or semisolid right apical nodule, question related to pleural and parenchymal scarring. 1.5 cm partially calcified left thyroid nodule. Based on patient age in size, this does not meet criteria for follow-up. Moderate coronary artery calcification. Fleischner guidelines were followed. Medications Medications Current Medications Amlodipine Besylate (Amlodipine Besylate 10 Mg Tablet) 10 mg PO BEDTIME TIMOTEO; Protocol Last Admin: 03/20/22 20:12 Dose: 10 mg Donepezil HCl (Donepezil Hcl 5 Mg Tablet) 5 mg PO BEDTIME TIMOTEO Last Admin: 03/20/22 20:12 Dose: 5 mg Hydrochlorothiazide (Hydrochlorothiazide 12.5 Mg Tablet) 12.5 mg PO DAILY TIMOTEO; Protocol Last Admin: 03/21/22 08:28 Dose: 12.5 mg Hydrocortisone (Hydrocortisone 1 % Cream 28.35 Gm Tube) 1 appl TOPICAL DAILY PRN PRN Reason: pruritic skin Olanzapine (Olanzapine 5 Mg Tablet) 5 mg PO BEDTIME TIMOTEO Last Admin: 03/20/22 20:13 Dose: 5 mg Olanzapine (Olanzapine 10 Mg Vial) 5 mg IM BEDTIME PRN PRN Reason: refusal of PO Oxybutynin Chloride (Oxybutynin Chloride Er 5 Mg Tab.Er.24) 5 mg PO BEDTIME TIMOTEO Last Admin: 03/20/22 20:12 Dose: 5 mg Trazodone HCl (Trazodone Hcl 50 Mg Tablet) 50 mg PO BEDTIME PRN PRN Reason: insomnia Last Admin: 03/20/22 20:31 Dose: 50 mg Allergies Allergies Allergy/AdvReac Type Severity Reaction Status Date / Time codeine Allergy Unknown Unknown Verified 12/15/21 18:29 sulfadiazine Allergy Unknown Unknown Verified 12/15/21 18:29 Assessment & Plan Assessment & Plan (1) Dementia: Status: Acute Code(s): F03.90 - Unspecified dementia, unspecified severity, without behavioral disturbance, psychotic disturbance, mood disturbance, and anxiety Plan The patient is an elderly female, recently , with poor social support, no help from family or a with and says, admitted into the hospital for psychotic symptoms elicited by paranoia against a major of [facility], failure to thrive and hoarding. Please see the HPI of the admission note for further details. Currently on Section 7 and 8 since the patient wants to leave and does not have any insight into her condition. Plan 1. Continue with Zyprexa as per court order. 2. Guardianship paperwork since the patient cannot take informed decisions. 3. The oncologist already review her case due to the masses of her both lungs but the patient refused to have the procedure of biopsy. 4. MOLST will be discussed again and try to get it sign. Apparently the patient does not have capacity to take informed decisions regarding her MOLST. 5. We need a guardian so we can offer all the medical treatment that she needs a t this moment so far, she has refused any treatment or diagnostic procedures for the nodules on her chest. 6. We had guardianship and a work over rig operator was appointed. We will redirect the family to coordinate efforts. 7. I called today to her guardian and explained that she needs to have a biopsy, the guardian will sign the consent. I also inform Oncology about this. I provided information to Oncology Service. Oncology saw her on March 08 and they suggested to do a new CT scan of the chest next month in March. The patient has refused to do a biopsy and we will discuss this with the guardian. 8. Waiting for placement. 9. Change Ditropan xl to 5 mg to bid. Reason for contiued inpatient stay Substantial Risk for: inability to function, rapid decompensation and med/psych decompensation Time Spent With Patient Time: Total time managing care of this patient today __20__ minutes.
[2022-03-21 18:00] VITALS: BP 159/67; PULSE 62; RESP 15; TEMP 36.4; O2SAT 92
[2022-03-21] MEDS: OLANZapine 5 MG TABLET PO (20:33)
[2022-03-21] MEDS: amLODIPine Besylate 10 MG TABLET PO (20:33)
[2022-03-21] MEDS: traZODone HCL 50 MG TABLET PO (20:33)
[2022-03-22 10:15] VITALS: BP 143/60; PULSE 65; RESP 18; TEMP 36.4; O2SAT 96
[2022-03-22] MEDS: hydroCHLOROthiazide 12.5 MG TABLET PO (10:15)
--- NOTE | 2022-03-22 14:04 | HO.PSYCHPN ---
Subjective Subjective Date of Service: 03/22/22 Reason For Visit: Mood Subjective Notes: Conditional Voluntary Interim History: The nursing staff reported the patient had been compliant with treatment, she slept well last night. The healthcare social worker tried to contact the assisted facility and so far we do not have an answer yet for disposition. On interview the patient complained of urinary incontinence and I explained her that we really addressed with the increased dose of Ditropan. Mental Status Exam Mental Status Exam Patient Appearance: Well Grooomed Patient Orientation: Person and Situation Level of Consciousness: Awake Patient Behavior: Guarded and Passive Mood Description: Withdrawn Affect Description: Constricted Patient Cognition Impaired: Yes Ability to Follow Directions: Good Speech Pattern: Clear Hallucinations: None Delusions: Paranoid Ideation Thought Process: Distracted and Slowed Thinking Thought Content: positive for [place] and positive for Poverty of Content Judgement: Fair Diagnostics Vital Signs (24Hr): Vital Signs - 24 hr 03/21/22 18:00 Temperature 97.6 F Pulse Rate 62 Respiratory Rate 15 Blood Pressure 159/67 H Pulse Oximetry 92 Oxygen Delivery Method Room Air BMI result Body Mass Index 24.4 Labs Results: 01/20/22 08:00 01/20/22 08:00 Imaging Radiology Impressions: ITS Impressions Chest CT 01/10/22 15:11 IMPRESSION: Bilateral small pulmonary nodules, left greater than right. Biapical pleural and parenchymal scarring. 1.1 x 1.4 cm heterogeneous or semisolid right apical nodule, question related to pleural and parenchymal scarring. 1.5 cm partially calcified left thyroid nodule. Based on patient age in size, this does not meet criteria for follow-up. Moderate coronary artery calcification. Fleischner guidelines were followed. Medications Medications Current Medications Amlodipine Besylate (Amlodipine Besylate 10 Mg Tablet) 10 mg PO BEDTIME TIMOTEO; Protocol Last Admin: 03/21/22 20:33 Dose: 10 mg Donepezil HCl (Donepezil Hcl 5 Mg Tablet) 5 mg PO BEDTIME TIMOTEO Last Admin: 03/21/22 22:22 Dose: Not Given Hydrochlorothiazide (Hydrochlorothiazide 12.5 Mg Tablet) 12.5 mg PO DAILY TIMOTEO; Protocol Last Admin: 03/22/22 10:15 Dose: 12.5 mg Hydrocortisone (Hydrocortisone 1 % Cream 28.35 Gm Tube) 1 appl TOPICAL DAILY PRN PRN Reason: pruritic skin Olanzapine (Olanzapine 5 Mg Tablet) 5 mg PO BEDTIME TIMOTEO Last Admin: 03/21/22 20:33 Dose: 5 mg Olanzapine (Olanzapine 10 Mg Vial) 5 mg IM BEDTIME PRN PRN Reason: refusal of PO Oxybutynin Chloride (Oxybutynin Chloride Er 5 Mg Tab.Er.24) 5 mg PO BID TIMOTEO Last Admin: 03/22/22 10:15 Dose: 5 mg Trazodone HCl (Trazodone Hcl 50 Mg Tablet) 50 mg PO BEDTIME PRN PRN Reason: insomnia Last Admin: 03/21/22 20:33 Dose: 50 mg Allergies Allergies Allergy/AdvReac Type Severity Reaction Status Date / Time codeine Allergy Unknown Unknown Verified 12/15/21 18:29 sulfadiazine Allergy Unknown Unknown Verified 12/15/21 18:29 Assessment & Plan Assessment & Plan (1) Dementia: Status: Acute Code(s): F03.90 - Unspecified dementia, unspecified severity, without behavioral disturbance, psychotic disturbance, mood disturbance, and anxiety Plan The patient is an elderly female, recently , with poor social support, no help from family or a with and says, admitted into the hospital for psychotic symptoms elicited by paranoia against a major of was [place], failure to thrive and hoarding. Please see the HPI of the admission note for further details. Currently on Section 7 and 8 since the patient wants to leave and does not have any insight into her condition. Plan 1. Continue with Zyprexa as per court order. 2. Guardianship paperwork since the patient cannot take informed decisions. 3. The oncologist already review her case due to the masses of her both lungs but the patient refused to have the procedure of biopsy. 4. MOLST will be discussed again and try to get it sign. Apparently the patient does not have capacity to take informed decisions regarding her MOLST. 5. We need a guardian so we can offer all the medical treatment that she needs at this moment so far, she has refused any treatment or diagnostic procedures for the nodules on her chest. 6. We had guardianship and a sample supervisor was appointed. We will redirect the family to coordinate efforts. 7. I called today to her guardian and explained that she needs to have a biopsy, the guardian will sign the consent. I also inform Oncology about this. I provided information to Oncology Service. Oncology saw her on March 08 and they suggested to do a new CT scan of the chest next month in March. The patient has refused to do a biopsy and we will discuss this with the guardian. 8. Waiting for placement. 9. Change Ditropan xl to 5 mg to bid. Reason for contiued inpatient stay Substantial Risk for: inability to function, rapid decompensation and med/psych decompensation Time Spent With Patient Time: Total time managing care of this patient today __20__ minutes.
[2022-03-22 18:00] VITALS: BP 157/74; PULSE 64; RESP 16; TEMP 36.6; O2SAT 95
[2022-03-22] MEDS: Donepezil HCl 5 MG TABLET PO (19:51)
[2022-03-22] MEDS: OLANZapine 5 MG TABLET PO (19:51)
[2022-03-22] MEDS: amLODIPine Besylate 10 MG TABLET PO (19:54)
[2022-03-23] MEDS: hydroCHLOROthiazide 12.5 MG TABLET PO (12:37)
--- NOTE | 2022-03-23 17:02 | P.PNPSI_ITS ---
Subjective Subjective Date of Service: 03/23/22 Reason For Visit: Mood Subjective Notes: Conditional Voluntary Interim History: The nursing staff reported the patient had been compliant with treatment, she has been pleasant and cooperative. On interview the patient denies new symptoms Mental Status Exam Mental Status Exam Patient Appearance: Appropriate Patient Orientation: Person and Situation Level of Consciousness: Awake Mood Description: Constricted Affect Description: Constricted Patient Cognition Impaired: Yes Ability to Follow Directions: Good Speech Pattern: Appropriate Hallucinations: None Delusions: Not Present Thought Content: positive for [place] and positive for Perseveration Judgement: Poor Diagnostics Vital Signs (24Hr): Vital Signs - 24 hr 03/22/22 18:00 Temperature 97.9 F Pulse Rate 64 Respiratory Rate 16 Blood Pressure 157/74 H Pulse Oximetry 95 Oxygen Delivery Method Room Air BMI result Body Mass Index 24.4 Labs 01/20/22 08:00 01/20/22 08:00 Imaging Radiology Impressions: ITS Impressions Chest CT 01/10/22 15:11 IMPRESSION: Bilateral small pulmonary nodules, left greater than right. Biapical pleural and parenchymal scarring. 1.1 x 1.4 cm heterogeneous or semisolid right apical nodule, question related to pleural and parenchymal scarring. 1.5 cm partially calcified left thyroid nodule. Based on patient age in size, this does not meet criteria for follow-up. Moderate coronary artery calcification. Fleischner guidelines were followed. Medications Medications Current Medications Amlodipine Besylate (Amlodipine Besylate 10 Mg Tablet) 10 mg PO BEDTIME TIMOTEO; Protocol Last Admin: 03/22/22 19:54 Dose: 10 mg Donepezil HCl (Donepezil Hcl 5 Mg Tablet) 5 mg PO BEDTIME TIMOTEO Last Admin: 03/22/22 19:51 Dose: 5 mg Hydrochlorothiazide (Hydrochlorothiazide 12.5 Mg Tablet) 12.5 mg PO DAILY TIMOTEO; Protocol Last Admin: 03/23/22 12:37 Dose: 12.5 mg Hydrocortisone (Hydrocortisone 1 % Cream 28.35 Gm Tube) 1 appl TOPICAL DAILY PRN PRN Reason: pruritic skin Olanzapine (Olanzapine 5 Mg Tablet) 5 mg PO BEDTIME TIMOTEO Last Admin: 03/22/22 19:51 Dose: 5 mg Olanzapine (Olanzapine 10 Mg Vial) 5 mg IM BEDTIME PRN PRN Reason: refusal of PO Oxybutynin Chloride (Oxybutynin Chloride Er 5 Mg Tab.Er.24) 5 mg PO BID TIMOTEO Last Admin: 03/23/22 12:37 Dose: 5 mg Trazodone HCl (Trazodone Hcl 50 Mg Tablet) 50 mg PO BEDTIME PRN PRN Reason: insomnia Last Admin: 03/21/22 20:33 Dose: 50 mg Allergies Allergies Allergy/AdvReac Type Severity Reaction Status Date / Time codeine Allergy Unknown Unknown Verified 12/15/21 18:29 sulfadiazine Allergy Unknown Unknown Verified 12/15/21 18:29 Assessment & Plan Assessment & Plan (1) Dementia: Status: Acute Code(s): F03.90 - Unspecified dementia, unspecified severity, without behavioral disturbance, psychotic disturbance, mood disturbance, and anxiety Plan The patient is an elderly female, recently , with poor social support, no help from family or a with and says, admitted into the hospital for psychotic symptoms elicited by paranoia against a major of was [place], failure to thrive and hoarding. Please see the HPI of the admission note for further details. Currently on Section 7 and 8 since the patient wants to leave and does not have any insight into her condition. Plan 1. Continue with Zyprexa as per court order. 2. Guardianship paperwork since the patient cannot take informed decisions. 3. The oncologist already review her case due to the masses of her both lungs b ut the patient refused to have the procedure of biopsy. 4. MOLST will be discussed again and try to get it sign. Apparently the patient does not have capacity to take informed decisions regarding her MOLST. 5. We need a guardian so we can offer all the medical treatment that she needs at this moment so far, she has refused any treatment or diagnostic procedures for the nodules on her chest. 6. We had guardianship and a pharmacy customer care specialist was appointed. We will redirect the family to coordinate efforts. 7. I called today to her guardian and explained that she needs to have a biopsy, the guardian will sign the consent. I also inform Oncology about this. I provided information to Oncology Service. Oncology saw her on March 08 and they suggested to do a new CT scan of the chest next month in March. The patient has refused to do a biopsy and we will discuss this with the guardian. 8. Waiting for placement. 9. Change Ditropan xl to 5 mg to bid. Reason for contiued inpatient stay Substantial Risk for: inability to function, rapid decompensation and med/psych decompensation Time Spent With Patient Time: Total time managing care of this patient today __20__ minutes.
[2022-03-23 18:00] VITALS: BP 160/68; PULSE 75; RESP 18; TEMP 36.6; O2SAT 95
[2022-03-23] MEDS: Donepezil HCl 5 MG TABLET PO (20:29)
[2022-03-23] MEDS: OLANZapine 5 MG TABLET PO (20:29)
[2022-03-23] MEDS: amLODIPine Besylate 10 MG TABLET PO (20:30)
[2022-03-24 08:30] VITALS: BP 115/61; PULSE 71; RESP 12; TEMP 36.5; O2SAT 93
[2022-03-24] MEDS: hydroCHLOROthiazide 12.5 MG TABLET PO (10:08)
--- NOTE | 2022-03-24 16:35 | P.PNPSI_ITS ---
Subjective Subjective Date of Service: 03/24/22 Reason For Visit: Mood Subjective Notes: Section 7 and Section 8 Interim History: The nursing staff reported the patient had been compliant with treatment no new symptoms. On interview the patient reports that she wants to have a consult with neurologist. She is unable to remember 3 or conversations that we had during the week. Mental Status Exam Mental Status Exam Patient Appearance: Well Grooomed Patient Orientation: Person and Situation Level of Consciousness: Awake Patient Behavior: Guarded and Passive Mood Description: Calm Affect Description: Constricted Patient Cognition Impaired: Yes Ability to Follow Directions: Good Speech Pattern: Clear Hallucinations: None Delusions: Not Present Thought Process: Illogical and Distracted Thought Content: positive for [place] and positive for Circumstantial Judgement: Fair Diagnostics Vital Signs (24Hr): Vital Signs - 24 hr 03/23/22 18:00 03/24/22 08:30 Temperature 97.8 F 97.7 F Pulse Rate 75 71 Respiratory Rate 18 12 Blood Pressure 160/68 H 115/61 Pulse Oximetry 95 93 Oxygen Delivery Method Room Air Room Air BMI result Body Mass Index 24.4 Labs 01/20/22 08:00 01/20/22 08:00 Imaging Radiology Impressions: ITS Impressions Chest CT 01/10/22 15:11 IMPRESSION: Bilateral small pulmonary nodules, left greater than right. Biapical pleural and parenchymal scarring. 1.1 x 1.4 cm heterogeneous or semisolid right apical nodule, question related to pleural and parenchymal scarring. 1.5 cm partially calcified left thyroid nodule. Based on patient age in size, this does not meet criteria for follow-up. Moderate coronary artery calcification. Fleischner guidelines were followed. Medications Medications Current Medications Amlodipine Besylate (Amlodipine Besylate 10 Mg Tablet) 10 mg PO BEDTIME TIMOTEO; Protocol Last Admin: 03/23/22 20:30 Dose: 10 mg Donepezil HCl (Donepezil Hcl 5 Mg Tablet) 5 mg PO BEDTIME TIMOTEO Last Admin: 03/23/22 20:29 Dose: 5 mg Hydrochlorothiazide (Hydrochlorothiazide 12.5 Mg Tablet) 12.5 mg PO DAILY TIMOTEO; Protocol Last Admin: 03/24/22 10:08 Dose: 12.5 mg Hydrocortisone (Hydrocortisone 1 % Cream 28.35 Gm Tube) 1 appl TOPICAL DAILY PRN PRN Reason: pruritic skin Olanzapine (Olanzapine 5 Mg Tablet) 5 mg PO BEDTIME TIMOTEO Last Admin: 03/23/22 20:29 Dose: 5 mg Olanzapine (Olanzapine 10 Mg Vial) 5 mg IM BEDTIME PRN PRN Reason: refusal of PO Oxybutynin Chloride (Oxybutynin Chloride Er 5 Mg Tab.Er.24) 5 mg PO BID TIMOTEO Last Admin: 03/24/22 10:09 Dose: 5 mg Trazodone HCl (Trazodone Hcl 50 Mg Tablet) 50 mg PO BEDTIME PRN PRN Reason: insomnia Last Admin: 03/21/22 20:33 Dose: 50 mg Allergies Allergies Allergy/AdvReac Type Severity Reaction Status Date / Time codeine Allergy Unknown Unknown Verified 12/15/21 18:29 sulfadiazine Allergy Unknown Unknown Verified 12/15/21 18:29 Assessment & Plan Assessment & Plan (1) Dementia: Status: Acute Code(s): F03.90 - Unspecified dementia, unspecified severity, without behavioral d isturbance, psychotic disturbance, mood disturbance, and anxiety Plan The patient is an elderly female, recently , with poor social support, no help from family or a with and says, admitted into the hospital for psychotic symptoms elicited by paranoia against a major of [facility], failure to thrive and hoarding. Please see the HPI of the admission note for further details. Currently on Section 7 and 8 since the patient wants to leave and does not have any insight into her condition. Plan 1. Continue with Zyprexa as per court order. 2. Guardianship paperwork since the patient cannot take informed decisions. 3. The oncologist already review her case due to the masses of her both lungs but the patient refused to have the procedure of biopsy. 4. MOLST will be discussed again and try to get it sign. Apparently the patient does not have capacity to take informed decisions regarding her MOLST. 5. We need a guardian so we can offer all the medical treatment that she needs at this moment so far, she has refused any treatment or diagnostic procedures for the nodules on her chest. 6. We had guardianship and a church communications administrator was appointed. We will redirect the family to coordinate efforts. 7. I called today to her guardian and explained that she needs to have a biopsy, the guardian will sign the consent. I also inform Oncology about this. I provided information to Oncology Service. Oncology saw her on March 08 and t hey suggested to do a new CT scan of the chest next month in March. The patient has refused to do a biopsy and we will discuss this with the guardian. 8. Waiting for placement. 9. Change Ditropan xl to 5 mg to bid. Reason for contiued inpatient stay Substantial Risk for: inability to function, rapid decompensation and med/psych decompensation Time Spent With Patient Time: Total time managing care of this patient today __20__ minutes.
[2022-03-24 18:00] VITALS: BP 149/70; PULSE 99; RESP 16; TEMP 36.3; O2SAT 97
[2022-03-24] MEDS: OLANZapine 5 MG TABLET PO (20:20)
[2022-03-24] MEDS: Donepezil HCl 5 MG TABLET PO (20:21)
[2022-03-24] MEDS: traZODone HCL 50 MG TABLET PO (20:22)
[2022-03-24] MEDS: amLODIPine Besylate 10 MG TABLET PO (20:22)
[2022-03-25 08:22] VITALS: BP 127/61; PULSE 61; RESP 16; TEMP 36.1; O2SAT 98
[2022-03-25] MEDS: hydroCHLOROthiazide 12.5 MG TABLET PO (08:41)
--- NOTE | 2022-03-25 14:19 | P.PNPSI_ITS ---
Subjective Subjective Date of Service: 03/25/22 Reason For Visit: Mood Subjective Notes: Section 8 Interim History: Pt reports feeling well. she denies SI/HI. No physical concerns. Per nursing, no behavioral concerns. She is taking medications as prescribed. She is visible on the unit, social with select peers. Medication Compliance: Yes Side effects from medications: No Review of Systems Review of Systems Lower extremity edema Yes Unobtainable due to mental status Constitutional: Reports no additional constitutional complaints Eyes: Reports no additional eye complaints Reports system reviewed and no additional complaints, except as documented Cardiovascular: Reports no additional cardiovascular complaints Respiratory: Reports no additional respiratory complaints Gastrointestinal: Reports no additional gastrointestinal complaints Musculoskeletal: Reports no additional musculoskeletal complaints Skin/Breast: Reports system reviewed and no additional complaints, except as docu Reports system reviewed and no additional complaints, except as documented Psychiatric: Reports no additional psychiatric complaints Endocrine: Reports no additional endocrine complaints Hematologic/Lymphatic: Reports no additional hematologic/lymphatic complaints Allergic/Immunologic: Reports no additional allergic/immunologic complaints Mental Status Exam Mental Status Exam Narrative: appearance: casually groomed, good hygiene, in NAD Behavior: cooperative but also wants to end meeting soon after few questions Psychomotor: no overt retardation or agitation noted Speech: clear, normal rate/rhythm/volume, spontaneous TP: linear TC: enjoying the food here, feeling well here Mood: good Affect: brightens up at times SI: none HI: none Insight/judgment: poor x 2. Memory/cog: alert, not oriented to situation. Diagnostics Vital Signs (24Hr): Vital Signs - 24 hr 03/24/22 18:00 03/25/22 08:22 Temperature 97.4 F 97.0 F Pulse Rate 99 61 Respiratory Rate 16 16 Blood Pressure 149/70 H 127/61 Pulse Oximetry 97 98 Oxygen Delivery Method Room Air Room Air BMI result Body Mass Index 24.4 Labs 01/20/22 08:00 01/20/22 08:00 Imaging Radiology Impressions: ITS Impressions Chest CT 01/10/22 15:11 IMPRESSION: Bilateral small pulmonary nodules, left greater than right. Biapical pleural and parenchymal scarring. 1.1 x 1.4 cm heterogeneous or semisolid right apical nodule, question related to pleural and parenchymal scarring. 1.5 cm partially calcified left thyroid nodule. Based on patient age in size, this does not meet criteria for follow-up. Moderate coronary artery calcification. Fleischner guidelines were followed. Medications Medications Current Medications Amlodipine Besylate (Amlodipine Besylate 10 Mg Tablet) 10 mg PO BEDTIME TIMOTEO; Protocol Last Admin: 03/24/22 20:22 Dose: 10 mg Donepezil HCl (Donepezil Hcl 5 Mg Tablet) 5 mg PO BEDTIME ITMOTEO Last Admin: 03/24/22 20:21 Dose: 5 mg Hydrochlorothiazide (Hydrochlorothiazide 12.5 Mg Tablet) 12.5 mg PO DAILY TIMOTEO; Protocol Last Admin: 03/25/22 08:41 Dose: 12.5 mg Hydrocortisone (Hydrocortisone 1 % Cream 28.35 Gm Tube) 1 appl TOPICAL DAILY PRN PRN Reason: pruritic skin Olanzapine (Olanzapine 5 Mg Tablet) 5 mg PO BEDTIME TIMOTEO Last Admin: 03/24/22 20:20 Dose: 5 mg Olanzapine (Olanzapine 10 Mg Vial) 5 mg IM BEDTIME PRN PRN Reason: refusal of PO Oxybutynin Chloride (Oxybutynin Chloride Er 5 Mg Tab.Er.24) 5 mg PO BID TIMOTEO Last Admin: 03/25/22 08:40 Dose: 5 mg Trazodone HCl (Trazodone Hcl 50 Mg Tablet) 50 mg PO BEDTIME PRN PRN Reason: insomnia Last Admin: 03/24/22 20:22 Dose: 50 mg Allergies Allergies Allergy/AdvReac Type Severity Reaction Status Date / Time codeine Allergy Unknown Unknown Verified 12/15/21 18:29 sulfadiazine Allergy Unknown Unknown Verified 12/15/21 18:29 Assessment & Plan Assessment & Plan (1) Dementia: Status: Acute Code(s): F03.90 - Unspecified dementia, unspecified severity, without behavioral disturbance, psychotic disturbance, mood disturbance, and anxiety Plan The patient is an elderly female, recently , with poor social support, no help from family or a with and says, admitted into the hospital for psychotic symptoms elicited by paranoia against a major of was [place], failure to thrive and hoarding. Please see the HPI of the admission note for further details. Currently on Section 7 and 8 since the patient wants to leave and does not have any insight into her condition. Plan 1. Continue with Zyprexa as per court order. 2. Guardianship paperwork since the patient cannot take informed decisions. 3. The oncologist already review her case due to the masses of her both lungs but the patient refused to have the procedure of biopsy. 4. MOLST will be discussed again and try to get it sign. Apparently the patient does not have capacity to take informed decisions regarding her MOLST. 5. We need a guardian so we can offer all the medical treatment that she needs at this moment so far, she has refused any treatment or diagnostic procedures for the nodules on her chest. 6. We had guardianship and a on site services specialist was appointed. We will redirect the family to coordinate efforts. 7. I called today to her guardian and explained that she needs to have a biopsy, the guardian will sign the consent. I also inform Oncology about this. I provided information to Oncology Service. Oncology saw her on March 08 and they suggested to do a new CT scan of the chest next month in March. The patient has refused to do a biopsy and we will discuss this with the guardian. 8. Waiting for placement. 9. Change Ditropan xl to 5 mg to bid. 03/25 continue current tx. Reason for contiued inpatient stay Substantial Risk for: inability to function Time Spent With Patient Time: Total time managing care of this patient today ____ minutes.
[2022-03-25 18:00] VITALS: BP 158/73; PULSE 63; RESP 63; TEMP 36.4; O2SAT 94
[2022-03-25] MEDS: amLODIPine Besylate 10 MG TABLET PO (19:50)
[2022-03-25] MEDS: Donepezil HCl 5 MG TABLET PO (19:50)
[2022-03-25] MEDS: OLANZapine 5 MG TABLET PO (19:50)
[2022-03-25] MEDS: traZODone HCL 50 MG TABLET PO (19:50)
[2022-03-26 06:00] VITALS: BP 124/56; PULSE 63; RESP 17; TEMP 36.3; O2SAT 95
--- NOTE | 2022-03-26 11:05 | HO.PSYCHPN ---
Subjective Subjective Date of Service: 03/26/22 Reason For Visit: Mood Subjective Notes: Section 8 Interim History: Pt visible on the unit. she denies SI/HI. No physical concerns. Per nursing, no behavioral concerns. She is taking medications as prescribed. Significant difficulty remembering what has happened day prior. She is visible on the unit, social with select peers. Medication Compliance: Yes Review of Systems Review of Systems Lower extremity edema Yes Unobtainable due to mental status Constitutional: Reports no additional constitutional complaints Eyes: Reports no additional eye complaints Reports system reviewed and no additional complaints, except as documented Cardiovascular: Reports no additional cardiovascular complaints Respiratory: Reports no additional respiratory complaints Gastrointestinal: Reports no additional gastrointestinal complaints Musculoskeletal: Reports no additional musculoskeletal complaints Skin/Breast: Reports system reviewed and no additional complaints, except as docu Reports system reviewed and no additional complaints, except as documented Psychiatric: Reports no additional psychiatric complaints Endocrine: Reports no additional endocrine complaints Hematologic/Lymphatic: Reports no additional hematologic/lymphatic complaints Allergic/Immunologic: Reports no additional allergic/immunologic complaints Mental Status Exam Mental Status Exam Narrative: appearance: casually groomed, good hygiene, in NAD Behavior: cooperative but also wants to end meeting soon after few questions Psychomotor: no overt retardation or agitation noted Speech: clear, normal rate/rhythm/volume, spontaneous TP: linear TC: enjoying the food here, feeling well here Mood: good Affect: brightens up at times SI: none HI: none Insight/judgment: poor x 2. Memory/cog: alert, not oriented to situation. Diagnostics Vital Signs (24Hr): Vital Signs - 24 hr 03/26/22 18:00 Temperature 97.8 F Pulse Rate 62 Respiratory Rate 16 Blood Pressure 154/65 H Pulse Oximetry 98 Oxygen Delivery Method Room Air BMI result Body Mass Index 24.4 Labs 01/20/22 08:00 01/20/22 08:00 Imaging Radiology Impressions: ITS Impressions Chest CT 01/10/22 15:11 IMPRESSION: Bilateral small pulmonary nodules, left greater than right. Biapical pleural and parenchymal scarring. 1.1 x 1.4 cm heterogeneous or semisolid right apical nodule, question related to pleural and parenchymal scarring. 1.5 cm partially calcified left thyroid nodule. Based on patient age in size, this does not meet criteria for follow-up. Moderate coronary artery calcification. Fleischner guidelines were followed. Medications Medications Current Medications Amlodipine Besylate (Amlodipine Besylate 10 Mg Tablet) 10 mg PO BEDTIME TIMOTEO; Protocol Last Admin: 03/26/22 20:29 Dose: 10 mg Donepezil HCl (Donepezil Hcl 5 Mg Tablet) 5 mg PO BEDTIME TIMOTEO Last Admin: 03/26/22 20:30 Dose: 5 mg Hydrochlorothiazide (Hydrochlorothiazide 12.5 Mg Tablet) 12.5 mg PO DAILY TIMOTEO; Protocol Last Admin: 03/26/22 11:25 Dose: 12.5 mg Hydrocortisone (Hydrocortisone 1 % Cream 28.35 Gm Tube) 1 appl TOPICAL DAILY PRN PRN Reason: pruritic skin Olanzapine (Olanzapine 5 Mg Tablet) 5 mg PO BEDTIME TIMOTEO Last Admin: 03/26/22 20:30 Dose: 5 mg Olanzapine (Olanzapine 10 Mg Vial) 5 mg IM BEDTIME PRN PRN Reason: refusal of PO Oxybutynin Chloride (Oxybutynin Chloride Er 5 Mg Tab.Er.24) 5 mg PO BID TIMOTEO Last Admin: 03/26/22 20:30 Dose: 5 mg Trazodone HCl (Trazodone Hcl 50 Mg Tablet) 50 mg PO BEDTIME PRN PRN Reason: insomnia Last Admin: 03/26/22 20:29 Dose: 50 mg Allergies Allergies Allergy/AdvReac Type Severity Reaction Status Date / Time codeine Allergy Unknown Unknown Verified 12/15/21 18:29 sulfadiazine Allergy Unknown Unknown Verified 12/15/21 18:29 Assessment & Plan Assessment & Plan (1) Dementia: Status: Acute Code(s): F03.90 - Unspecified dementia, unspecified severity, without behavioral disturbance, psychotic disturbance, mood disturbance, and anxiety Plan The patient is an elderly female, recently , with poor social support, no help from family or a with and says, admitted into the hospital for psychotic symptoms elicited by paranoia against a major of [facility], failure to thrive and hoarding. Please see the HPI of the admission note for further details. Currently on Section 7 and 8 since the patient wants to leave and does not have any insight into her condition. Plan 1. Continue with Zyprexa as per court order. 2. Guardianship paperwork since the patient cannot take informed decisions. 3. The oncologist already review her case due to the masses of her both lungs but the patient refused to have the procedure of biopsy. 4. MOLST will be discussed again and try to get it sign. Apparently the patient does not have capacity to take informed decisions regarding her MOLST. 5. We need a guardian so we can offer all the medical treatment that she needs at this moment so far, she has refused any treatment or diagnostic procedures for the nodules on her chest. 6. We had guardianship and a 911 operator was appointed. We will redirect the family to coordinate efforts. 7. I called today to her guardian and explained that she needs to have a biopsy, the guardian will sign the consent. I also inform Oncology about this. I provided information to Oncology Service. Oncology saw her on March 08 and they suggested to do a new CT scan of the chest next month in March. The patient has refused to do a biopsy and we will discuss this with the guardian. 8. Waiting for placement. 9. Change Ditropan xl to 5 mg to bid. 03/25 continue current tx. 03/26 continue tx. Reason for contiued inpatient stay Substantial Risk for: inability to function Time Spent With Patient Time: Total time managing care of this patient today ____ minutes.
[2022-03-26] MEDS: hydroCHLOROthiazide 12.5 MG TABLET PO (11:25)
[2022-03-26 18:00] VITALS: BP 154/65; PULSE 62; RESP 16; TEMP 36.6; O2SAT 98
[2022-03-26] MEDS: amLODIPine Besylate 10 MG TABLET PO (20:29)
[2022-03-26] MEDS: traZODone HCL 50 MG TABLET PO (20:29)
[2022-03-26] MEDS: OLANZapine 5 MG TABLET PO (20:30)
[2022-03-26] MEDS: Donepezil HCl 5 MG TABLET PO (20:30)
--- NOTE | 2022-03-27 14:13 | P.PNPSI_ITS ---
Subjective Subjective Date of Service: 03/27/22 Reason For Visit: Mood Subjective Notes: Conditional Voluntary Interim History: The nursing reported that over the weekend her niece came to visit her. She has been argumentative at times. On interview the patient denies new symptoms. Asking for the afternoon allergy consult for new pair of glasses, explained her that her case was closed in the ophtalmolgy clinic. Mental Status Exam Mental Status Exam Patient Appearance: Appropriate and Unkempt Patient Orientation: Person and Situation Level of Consciousness: Awake Patient Behavior: Appropriate and Guarded Mood Description: Withdrawn Affect Description: Labile Patient Cognition Impaired: Yes Ability to Follow Directions: Fair Speech Pattern: Clear Hallucinations: None Delusions: Paranoid Ideation Thought Process: Illogical and Slowed Thinking Thought Content: positive for [place] and positive for [place] Judgement: Fair Diagnostics Vital Signs (24Hr): Vital Signs - 24 hr 03/26/22 18:00 Temperature 97.8 F Pulse Rate 62 Respiratory Rate 16 Blood Pressure 154/65 H Pulse Oximetry 98 Oxygen Delivery Method Room Air BMI result Body Mass Index 24.4 Labs 01/20/22 08:00 01/20/22 08:00 Imaging Radiology Impressions: ITS Impressions Chest CT 01/10/22 15:11 IMPRESSION: Bilateral small pulmonary nodules, left greater than right. Biapical pleural and parenchymal scarring. 1.1 x 1.4 cm heterogeneous or semisolid right apical nodule, question related to pleural and parenchymal scarring. 1.5 cm partially calcified left thyroid nodule. Based on patient age in size, this does not meet criteria for follow-up. Moderate coronary artery calcification. Fleischner guidelines were followed. Medications Medications Current Medications Amlodipine Besylate (Amlodipine Besylate 10 Mg Tablet) 10 mg PO BEDTIME TIMOTEO; Protocol Last Admin: 03/26/22 20:29 Dose: 10 mg Donepezil HCl (Donepezil Hcl 5 Mg Tablet) 5 mg PO BEDTIME TIMOTEO Last Admin: 03/26/22 20:30 Dose: 5 mg Hydrochlorothiazide (Hydrochlorothiazide 12.5 Mg Tablet) 12.5 mg PO DAILY TIMOTEO; Protocol Last Admin: 03/27/22 10:13 Dose: Not Given Hydrocortisone (Hydrocortisone 1 % Cream 28.35 Gm Tube) 1 appl TOPICAL DAILY PRN PRN Reason: pruritic skin Olanzapine (Olanzapine 5 Mg Tablet) 5 mg PO BEDTIME TIMOTEO Last Admin: 03/26/22 20:30 Dose: 5 mg Olanzapine (Olanzapine 10 Mg Vial) 5 mg IM BEDTIME PRN PRN Reason: refusal of PO Oxybutynin Chloride (Oxybutynin Chloride Er 5 Mg Tab.Er.24) 5 mg PO BID TIMOTEO Last Admin: 03/27/22 10:13 Dose: Not Given Trazodone HCl (Trazodone Hcl 50 Mg Tablet) 50 mg PO BEDTIME PRN PRN Reason: insomnia Last Admin: 03/26/22 20:29 Dose: 50 mg Allergies Allergies Allergy/AdvReac Type Severity Reaction Status Date / Time codeine Allergy Unknown Unknown Verified 12/15/21 18:29 sulfadiazine Allergy Unknown Unknown Verified 12/15/21 18:29 Assessment & Plan Assessment & Plan (1) Dementia: Status: Acute Code(s): F03.90 - Unspecified dementia, unspecified severity, without behavioral disturbance, psychotic disturbance, mood disturbance, and anxiety Plan The patient is an elderly female, recently , with poor social support, no help from family or a with and says, admitted into the hospital for psychotic symptoms elicited by paranoia against a major of [facility], failure to thrive and hoarding. Please see the HPI of the admission note for further details. Currently on Section 7 and 8 since the patient wants to leave and does not have any insight into her condition. Plan 1. Continue with Zyprexa as per court order. 2. Guardianship paperwork since the patient cannot take informed decisions. 3. The oncologist already review her case due to the masses of her both lungs but the patient refused to have the procedure of biopsy. 4. MOLST will be discussed again and try to get it sign. Apparently the patient does not have capacity to take informed decisions regarding her MOLST. 5. We need a guardian so we can offer all the medical treatment that she needs at this moment so far, she has refused any treatment or diagnostic procedures for the nodules on her chest. 6. We had guardianship and a time study statistician was appointed. We will redirect the family to coordinate efforts. 7. I called today to her guardian and explained that she needs to have a biopsy, the guardian will sign the consent. I also inform Oncology about this. I provided information to Oncology Service. Oncology saw her on March 08 and they suggested to do a new CT scan of the chest next month in March. The pat ient has refused to do a biopsy and we will discuss this with the guardian. 8. Waiting for placement. 9. Change Ditropan xl to 5 mg to bid. Reason for contiued inpatient stay Substantial Risk for: inability to function, rapid decompensation and med/psych decompensation Time Spent With Patient Time: Total time managing care of this patient today ____ minutes.
[2022-03-27] MEDS: amLODIPine Besylate 10 MG TABLET PO (20:51)
[2022-03-27] MEDS: traZODone HCL 50 MG TABLET PO (20:52)
[2022-03-27] MEDS: Donepezil HCl 5 MG TABLET PO (20:53)
[2022-03-27] MEDS: OLANZapine 5 MG TABLET PO (20:54)
[2022-03-27 21:26] VITALS: BP 123/63; PULSE 78; RESP 20; TEMP 36.7; O2SAT 96
[2022-03-28 06:00] VITALS: PULSE 101; RESP 14; TEMP 37.4; O2SAT 96
[2022-03-28] MEDS: hydroCHLOROthiazide 12.5 MG TABLET PO (10:51)
[2022-03-28 10:52] VITALS: BP 160/69
--- NOTE | 2022-03-28 15:26 | P.PNPSI_ITS ---
Subjective Subjective Date of Service: 03/28/22 Reason For Visit: Mood Subjective Notes: Conditional Voluntary Interim History: The nursing staff reported the patient has been compliant with treatment. The staff has noticed that she is less irritable and more easily redirectable. On interview the patient denies new symptoms, explain that we need to have a new CT scan but she was a little stressed out for other things that she needs to do such as her guardianship and her belongings. We will do the CT scan thorax next Sunday. Blood work for tomorrow Mental Status Exam Mental Status Exam Patient Appearance: Appropriate Patient Orientation: Person and Situation Level of Consciousness: Awake Patient Behavior: Guarded and Passive Mood Description: Appropriate Affect Description: Constricted Patient Cognition Impaired: Yes Ability to Follow Directions: Good Speech Pattern: Clear Hallucinations: None Delusions: Paranoid Ideation Thought Process: Distracted Thought Content: positive for [place] and positive for Circumstantial Judgement: Fair Diagnostics Vital Signs (24Hr): Vital Signs - 24 hr 03/27/22 21:26 03/28/22 06:00 03/28/22 10:52 Temperature 98.1 F 99.4 F Pulse Rate 78 101 H Respiratory Rate 20 14 Blood Pressure 123/63 160/69 H Pulse Oximetry 96 96 Oxygen Delivery Method Room Air Room Air BMI result Body Mass Index 24.4 Labs 01/20/22 08:00 01/20/22 08:00 Imaging Radiology Impressions: ITS Impressions Chest CT 01/10/22 15:11 IMPRESSION: Bilateral small pulmonary nodules, left greater than right. Biapical pleural and parenchymal scarring. 1.1 x 1.4 cm heterogeneous or semisolid right apical nodule, question related to pleural and parenchymal scarring. 1.5 cm partially calcified left thyroid nodule. Based on patient age in size, this does not meet criteria for follow-up. Moderate coronary artery calcification. Fleischner guidelines were followed. Medications Medications Current Medications Amlodipine Besylate (Amlodipine Besylate 10 Mg Tablet) 10 mg PO BEDTIME TIMOTEO; Protocol Last Admin: 03/27/22 20:51 Dose: 10 mg Donepezil HCl (Donepezil Hcl 5 Mg Tablet) 5 mg PO BEDTIME TIMOTEO Last Admin: 03/27/22 20:53 Dose: 5 mg Hydrochlorothiazide (Hydrochlorothiazide 12.5 Mg Tablet) 12.5 mg PO DAILY TIMOTEO; Protocol Last Admin: 03/28/22 10:51 Dose: 12.5 mg Hydrocortisone (Hydrocortisone 1 % Cream 28.35 Gm Tube) 1 appl TOPICAL DAILY PRN PRN Reason: pruritic skin Olanzapine (Olanzapine 5 Mg Tablet) 5 mg PO BEDTIME TIMOTEO Last Admin: 03/27/22 20:54 Dose: 5 mg Olanzapine (Olanzapine 10 Mg Vial) 5 mg IM BEDTIME PRN PRN Reason: refusal of PO Oxybutynin Chloride (Oxybutynin Chloride Er 5 Mg Tab.Er.24) 5 mg PO BID TIMOTEO Last Admin: 03/28/22 10:52 Dose: 5 mg Trazodone HCl (Trazodone Hcl 50 Mg Tablet) 50 mg PO BEDTIME PRN PRN Reason: insomnia Last Admin: 03/27/22 20:52 Dose: 50 mg Allergies Allergies Allergy/AdvReac Type Severity Reaction Status Date / Time codeine Allergy Unknown Unknown Verified 12/15/21 18:29 sulfadiazine Allergy Unknown Unknown Verified 12/15/21 18:29 Assessment & Plan Assessment & Plan (1) Dementia: Status: Acute Code(s): F03.90 - Unspecified dementia, unspecified severity, without behavioral di sturbance, psychotic disturbance, mood disturbance, and anxiety Plan The patient is an elderly female, recently , with poor social support, no help from family or a with and says, admitted into the hospital for psychotic symptoms elicited by paranoia against a major of [facility], failure to thrive and hoarding. Please see the HPI of the admission note for further details. Currently on Section 7 and 8 since the patient wants to leave and does not have any insight into her condition. Plan 1. Continue with Zyprexa as per court order. 2. Guardianship paperwork since the patient cannot take informed decisions. 3. The oncologist already review her case due to the masses of her both lungs but the patient refused to have the procedure of biopsy. 4. MOLST will be discussed again and try to get it sign. Apparently the patient does not have capacity to take informed decisions regarding her MOLST. 5. We need a guardian so we can offer all the medical treatment that she needs at this moment so far, she has refused any treatment or diagnostic procedures for the nodules on her chest. 6. We had guardianship and a maintenance engineer oil field was appointed. We will redirect the family to coordinate efforts. 7. I called today to her guardian and explained that she needs to have a biopsy, the guardian will sign the consent. I also inform Oncology about this. I provided information to Oncology Service. Oncology saw her on March 08 and they suggested to do a new CT scan of the chest next month in March. The patient has refused to do a biopsy and we will discuss this with the guardian. 8. Waiting for placement. 9. Change Ditropan xl to 5 mg to bid. 10. Blood work for tomorrow Reason for contiued inpatient stay Substantial Risk for: inability to function, rapid decompensation and med/psych decompensation Time Spent With Patient Time: Total time managing care of this patient today __20__ minutes.
[2022-03-28 18:00] VITALS: BP 161/80; PULSE 64; RESP 16; TEMP 36.2; O2SAT 96
[2022-03-28] MEDS: traZODone HCL 50 MG TABLET PO (20:42)
[2022-03-28] MEDS: amLODIPine Besylate 10 MG TABLET PO (20:42)
[2022-03-28] MEDS: OLANZapine 5 MG TABLET PO (20:42)
[2022-03-28] MEDS: Donepezil HCl 5 MG TABLET PO (20:42)
[2022-03-29] MEDS: hydroCHLOROthiazide 12.5 MG TABLET PO (08:27)
--- NOTE | 2022-03-29 15:27 | HO.PSYCHPN ---
Subjective Subjective Date of Service: 03/29/22 Reason For Visit: Mood Subjective Notes: Conditional Voluntary Interim History: The nursing staff reported the patient had not have any new symptoms, compliant with treatment. On interview the patient reports that she has problems with her bladder, I explained her that she is on Ditropan for that. The social security assessor reported that she was referred to 8 assisted facilities and so far no placement yet. Mental Status Exam Mental Status Exam Patient Appearance: Appropriate Patient Orientation: Person and Situation Level of Consciousness: Awake and Appropriate Patient Behavior: Guarded and Passive Mood Description: Withdrawn Affect Description: Constricted Patient Cognition Impaired: Yes Ability to Follow Directions: Good Speech Pattern: Clear Hallucinations: None Delusions: Not Present Thought Process: Distracted Thought Content: positive for [place] and positive for Circumstantial Judgement: Fair Diagnostics Vital Signs (24Hr): Vital Signs - 24 hr 03/28/22 18:00 Temperature 97.1 F Pulse Rate 64 Respiratory Rate 16 Blood Pressure 161/80 H Pulse Oximetry 96 Oxygen Delivery Method Room Air BMI result Body Mass Index 24.4 Labs 01/20/22 08:00 01/20/22 08:00 Imaging Radiology Impressions: ITS Impressions Chest CT 01/10/22 15:11 IMPRESSION: Bilateral small pulmonary nodules, left greater than right. Biapical pleural and parenchymal scarring. 1.1 x 1.4 cm heterogeneous or semisolid right apical nodule, question related to pleural and parenchymal scarring. 1.5 cm partially calcified left thyroid nodule. Based on patient age in size, this does not meet criteria for follow-up. Moderate coronary artery calcification. Fleischner guidelines were followed. Medications Medications Current Medications Amlodipine Besylate (Amlodipine Besylate 10 Mg Tablet) 10 mg PO BEDTIME TIMOTEO; Protocol Last Admin: 03/28/22 20:42 Dose: 10 mg Donepezil HCl (Donepezil Hcl 5 Mg Tablet) 5 mg PO BEDTIME TIMOTEO Last Admin: 03/28/22 20:42 Dose: 5 mg Hydrochlorothiazide (Hydrochlorothiazide 12.5 Mg Tablet) 12.5 mg PO DAILY TIMOTEO; Protocol Last Admin: 03/29/22 08:27 Dose: 12.5 mg Hydrocortisone (Hydrocortisone 1 % Cream 28.35 Gm Tube) 1 appl TOPICAL DAILY PRN PRN Reason: pruritic skin Olanzapine (Olanzapine 5 Mg Tablet) 5 mg PO BEDTIME TIMOTEO Last Admin: 03/28/22 20:42 Dose: 5 mg Olanzapine (Olanzapine 10 Mg Vial) 5 mg IM BEDTIME PRN PRN Reason: refusal of PO Oxybutynin Chloride (Oxybutynin Chloride Er 5 Mg Tab.Er.24) 5 mg PO BID TIMOTEO Last Admin: 03/29/22 08:27 Dose: 5 mg Trazodone HCl (Trazodone Hcl 50 Mg Tablet) 50 mg PO BEDTIME PRN PRN Reason: insomnia Last Admin: 03/28/22 20:42 Dose: 50 mg Allergies Allergies Allergy/AdvReac Type Severity Reaction Status Date / Time codeine Allergy Unknown Unknown Verified 12/15/21 18:29 sulfadiazine Allergy Unknown Unknown Verified 12/15/21 18:29 Assessment & Plan Assessment & Plan (1) Dementia: Status: Acute Code(s): F03.90 - Unspecified dementia, unspecified severity, without behavioral disturbance, psychotic disturbance, mood disturbance, and anxiety Plan The patient is an elderly female, recently , with poor social support, no help from family or a with and says, admitted into the hospital for psychotic symptoms elicited by paranoia against a major of [facility], failure to thrive and hoarding. Please see the HPI of the admission note for further details. Currently on Section 7 and 8 since the patient wants to leave and does not have any insight into her condition. Plan 1. Continue with Zyprexa as per court order. 2. Guardianship paperwork since the patient cannot take informed decisions. 3. The oncologist already review her case due to the masses of her both lungs but the patient refused to have the procedure of biopsy. 4. MOLST will be discussed again and try to get it sign. Apparently the patient does not have capacity to take informed decisions regarding her MOLST. 5. We need a guardian so we can offer all the medical treatment that she needs at this moment so far, she has refused any treatment or diagnostic procedures for the nodules on her chest. 6. We had guardianship and a vice president planning was appointed. We will redirect the family to coordinate efforts. 7. I called today to her guardian and explained that she needs to have a biopsy, the guardian will sign the consent. I also inform Oncology about this. I provided information to Oncology Service. Oncology saw her on March 08 and they suggested to do a new CT scan of the chest next month in March. The patient has refused to do a biopsy and we will discuss this with the guardian. 8. Waiting for placement. 9. Change Ditropan xl to 5 mg to bid. 10. Blood work for tomorrow Reason for contiued inpatient stay Substantial Risk for: inability to function, rapid decompensation and med/psych decompensation Time Spent With Patient Time: Total time managing care of this patient today ____ minutes.
[2022-03-29 18:00] VITALS: BP 137/70; PULSE 67; RESP 14; TEMP 36.1; O2SAT 95
[2022-03-29] MEDS: OLANZapine 5 MG TABLET PO (20:42)
[2022-03-29] MEDS: Donepezil HCl 5 MG TABLET PO (20:43)
[2022-03-29] MEDS: traZODone HCL 50 MG TABLET PO (20:43)
[2022-03-29] MEDS: amLODIPine Besylate 10 MG TABLET PO (20:43)
[2022-03-30 07:30] VITALS: BP 144/70; PULSE 76; RESP 17; TEMP 36.9; O2SAT 99
[2022-03-30] MEDS: hydroCHLOROthiazide 12.5 MG TABLET PO (09:42)
--- NOTE | 2022-03-30 16:52 | P.PNPSI_ITS ---
Subjective Subjective Date of Service: 03/30/22 Reason For Visit: Mood Subjective Notes: Conditional Voluntary Interim History: The nursing staff reported the patient had being confused at times but easily redirectable per the neonatal social worker reported to [facility]. On interview the patient denies new symptoms Mental Status Exam Mental Status Exam Patient Appearance: Appropriate Patient Orientation: Person and Situation Level of Consciousness: Awake and Appropriate Patient Behavior: Guarded and Passive Mood Description: Calm Affect Description: Constricted Patient Cognition Impaired: Yes Ability to Follow Directions: Good Speech Pattern: Clear Hallucinations: None Delusions: Paranoid Ideation Thought Process: Linear Thought Content: positive for Circumstantial Judgement: Fair Diagnostics Vital Signs (24Hr): Vital Signs - 24 hr 03/29/22 18:00 03/30/22 07:30 Temperature 97 F 98.4 F Pulse Rate 67 76 Respiratory Rate 14 17 Blood Pressure 137/70 144/70 H Pulse Oximetry 95 99 Oxygen Delivery Method Room Air Room Air BMI result Body Mass Index 24.4 Labs 01/20/22 08:00 01/20/22 08:00 Imaging Radiology Impressions: ITS Impressions Chest CT 01/10/22 15:11 IMPRESSION: Bilateral small pulmonary nodules, left greater than right. Biapical pleural and parenchymal scarring. 1.1 x 1.4 cm heterogeneous or semisolid right apical nodule, question related to pleural and parenchymal scarring. 1.5 cm partially calcified left thyroid nodule. Based on patient age in size, this does not meet criteria for follow-up. Moderate coronary artery calcification. Fleischner guidelines were followed. Medications Medications Current Medications Amlodipine Besylate (Amlodipine Besylate 10 Mg Tablet) 10 mg PO BEDTIME TIMOTEO; Protocol Last Admin: 03/29/22 20:43 Dose: 10 mg Donepezil HCl (Donepezil Hcl 5 Mg Tablet) 5 mg PO BEDTIME TIMOTEO Last Admin: 03/29/22 20:43 Dose: 5 mg Hydrochlorothiazide (Hydrochlorothiazide 12.5 Mg Tablet) 12.5 mg PO DAILY TIMOTEO; Protocol Last Admin: 03/30/22 09:42 Dose: 12.5 mg Hydrocortisone (Hydrocortisone 1 % Cream 28.35 Gm Tube) 1 appl TOPICAL DAILY PRN PRN Reason: pruritic skin Olanzapine (Olanzapine 5 Mg Tablet) 5 mg PO BEDTIME TIMOTEO Last Admin: 03/29/22 20:42 Dose: 5 mg Olanzapine (Olanzapine 10 Mg Vial) 5 mg IM BEDTIME PRN PRN Reason: refusal of PO Oxybutynin Chloride (Oxybutynin Chloride Er 5 Mg Tab.Er.24) 5 mg PO BID TIMOTEO Last Admin: 03/30/22 09:42 Dose: 5 mg Trazodone HCl (Trazodone Hcl 50 Mg Tablet) 50 mg PO BEDTIME PRN PRN Reason: insomnia Last Admin: 03/29/22 20:43 Dose: 50 mg Allergies Allergies Allergy/AdvReac Type Severity Reaction Status Date / Time codeine Allergy Unknown Unknown Verified 12/15/21 18:29 sulfadiazine Allergy Unknown Unknown Verified 12/15/21 18:29 Assessment & Plan Assessment & Plan (1) Dementia: Status: Acute Code(s): F03.90 - Unspecified dementia, unspecified severity, without behavioral disturbance, psychotic disturbance, mood disturbance, and anxiety Plan The patient is an elderly female, recently , with poor social support, no help from family or a with and says, admitted into the hospital for psychotic symptoms elicited by paranoia against a major of [facility], failure to thrive and hoarding. Please see the HPI of the admission note for further details. Currently on Section 7 and 8 since the patient wants to leave and does not have any insight into her condition. Plan 1. Continue with Zyprexa as per court order. 2. Guardianship paperwork since the patient cannot take informed decisions. 3. The oncologist already review her case due to the masses of her both lungs but the patient refused to have the procedure of biopsy. 4. MOLST will be discussed again and try to get it sign. Apparently the patient does not have capacity to take informed decisions regarding her MOLST. 5. We need a guardian so we can offer all the medical treatment that she needs at this moment so far, she has refused any treatment or diagnostic procedures for the nodules on her chest. 6. We had guardianship and a family services coordinator was appointed. We will redirect the family to coordinate efforts. 7. I called today to her guardian and explained that she needs to have a biopsy, the guardian will sign the consent. I also inform Oncology about this. I provided information to Oncology Service. Oncology saw her on March 08 and they suggested to do a new CT scan of the chest next month in March. The patient has refused to do a biopsy and we will discuss this with the guardian. 8. Waiting for placement. 9. Change Ditropan xl to 5 mg to bid. 10. Blood work for tomorrow Reason for contiued inpatient stay Substantial Risk for: inability to function, rapid decompensation and med/psych decompensation Time Spent With Patient Time: Total time managing care of this patient today __20__ minutes.
[2022-03-30 18:00] VITALS: BP 147/63; PULSE 71; RESP 18; TEMP 36.5; O2SAT 93
[2022-03-30] MEDS: Donepezil HCl 5 MG TABLET PO (20:13)
[2022-03-30] MEDS: OLANZapine 5 MG TABLET PO (20:13)
[2022-03-30] MEDS: amLODIPine Besylate 10 MG TABLET PO (20:13)
[2022-03-31 06:00] VITALS: BP 140/70; PULSE 66; RESP 16; TEMP 36.3; O2SAT 97
--- NOTE | 2022-03-31 14:09 | HO.PSYCHPN ---
Subjective Subjective Date of Service: 03/31/22 Reason For Visit: Mood Subjective Notes: Section 7 and Section 8 Interim History: The nursing staff reported the patient had been compliant with treatment. She had been reading a book about dementia that her relative brought. On interview the patient denies new symptoms Mental Status Exam Mental Status Exam Patient Appearance: Well Grooomed Patient Orientation: Person and Situation Level of Consciousness: Awake Patient Behavior: Cooperative Mood Description: Withdrawn Affect Description: Constricted Patient Cognition Impaired: Yes Ability to Follow Directions: Good Speech Pattern: Clear Hallucinations: None Delusions: Paranoid Ideation Thought Process: Distracted and Slowed Thinking Thought Content: positive for [place] Judgement: Poor Diagnostics Vital Signs (24Hr): Vital Signs - 24 hr 03/30/22 18:00 03/31/22 06:00 Temperature 97.7 F 97.4 F Pulse Rate 71 66 Respiratory Rate 18 16 Blood Pressure 147/63 H 140/70 H Pulse Oximetry 93 97 Oxygen Delivery Method Room Air Room Air BMI result Body Mass Index 24.4 Labs 01/20/22 08:00 01/20/22 08:00 Imaging Radiology Impressions: ITS Impressions Chest CT 01/10/22 15:11 IMPRESSION: Bilateral small pulmonary nodules, left greater than right. Biapical pleural and parenchymal scarring. 1.1 x 1.4 cm heterogeneous or semisolid right apical nodule, question related to pleural and parenchymal scarring. 1.5 cm partially calcified left thyroid nodule. Based on patient age in size, this does not meet criteria for follow-up. Moderate coronary artery calcification. Fleischner guidelines were followed. Medications Medications Current Medications Amlodipine Besylate (Amlodipine Besylate 10 Mg Tablet) 10 mg PO BEDTIME TIMOTEO; Protocol Last Admin: 03/30/22 20:13 Dose: 10 mg Donepezil HCl (Donepezil Hcl 5 Mg Tablet) 5 mg PO BEDTIME TIMOTEO Last Admin: 03/30/22 20:13 Dose: 5 mg Hydrochlorothiazide (Hydrochlorothiazide 12.5 Mg Tablet) 12.5 mg PO DAILY TIMOTEO; Protocol Last Admin: 03/31/22 10:52 Dose: Not Given Hydrocortisone (Hydrocortisone 1 % Cream 28.35 Gm Tube) 1 appl TOPICAL DAILY PRN PRN Reason: pruritic skin Olanzapine (Olanzapine 5 Mg Tablet) 5 mg PO BEDTIME TIMOTEO Last Admin: 03/30/22 20:13 Dose: 5 mg Olanzapine (Olanzapine 10 Mg Vial) 5 mg IM BEDTIME PRN PRN Reason: refusal of PO Oxybutynin Chloride (Oxybutynin Chloride Er 5 Mg Tab.Er.24) 5 mg PO BID TIMOTEO Last Admin: 03/31/22 10:52 Dose: Not Given Trazodone HCl (Trazodone Hcl 50 Mg Tablet) 50 mg PO BEDTIME PRN PRN Reason: insomnia Last Admin: 03/29/22 20:43 Dose: 50 mg Allergies Allergies Allergy/AdvReac Type Severity Reaction Status Date / Time codeine Allergy Unknown Unknown Verified 12/15/21 18:29 sulfadiazine Allergy Unknown Unknown Verified 12/15/21 18:29 Assessment & Plan Assessment & Plan (1) Dementia: Status: Acute Code(s): F03.90 - Unspecified dementia, unspecified severity, without behavioral disturbance, psychotic disturbance, mood disturbance, and anxiety Plan The patient is an elderly female, recently , with poor social support, no help from family or a with and says, admitted into the hospital for psychotic symptoms elicited by paranoia against a major of was [place], failure to thrive and hoarding. Please see the HPI of the admission note for further details. Currently on Section 7 and 8 since the patient wants to leave and does not have any insight into her condition. Plan 1. Continue with Zyprexa as per court order. 2. Guardianship paperwork since the patient cannot take informed decisions. 3. The oncologist already review her case due to the masses of her both lungs but the patient refused to have the procedure of biopsy. 4. MOLST will be discussed again and try to get it sign. Apparently the patient does not have capacity to take informed decisions regarding her MOLST. 5. We need a guardian so we can offer all the medical treatment that she needs at this moment so far, she has refused any treatment or diagnostic procedures for the nodules on her chest. 6. We had guardianship and a mechanic marine engine was appointed. We will redirect the family to coordinate efforts. 7. I called today to her guardian and explained that she needs to have a biopsy, the guardian will sign the consent. I also inform Oncology about this. I provided information to Oncology Service. Oncology saw her on March 08 and they suggested to do a new CT scan of the chest next month in March. The patient has refused to do a biopsy and we will discuss this with the guardian. 8. Waiting for placement. 9. Change Ditropan xl to 5 mg to bid. 10. Blood work for tomorrow, apparently the patient refused. 11. CT scan thorax ordered for Sunday but she refused. We will try to do it again on Sunday. The CT scan thorax is a follow-up for the oncology service. Reason for contiued inpatient stay Substantial Risk for: inability to function, rapid decompensation and med/psych decompensation Time Spent With Patient Time: Total time managing care of this patient today _20___ minutes.
[2022-03-31 18:00] VITALS: BP 147/75; PULSE 71; RESP 18; TEMP 36.1; O2SAT 94
[2022-03-31] MEDS: OLANZapine 5 MG TABLET PO (20:26)
[2022-03-31] MEDS: Donepezil HCl 5 MG TABLET PO (20:26)
[2022-03-31] MEDS: amLODIPine Besylate 10 MG TABLET PO (20:27)
[2022-04-01 06:00] VITALS: BP 147/67; PULSE 61; RESP 16; TEMP 36.5; O2SAT 97
[2022-04-01] MEDS: hydroCHLOROthiazide 12.5 MG TABLET PO (08:25)
--- NOTE | 2022-04-01 17:29 | HO.PSYCHPN ---
Subjective Subjective Date of Service: 04/01/22 Reason For Visit: Mood Interim History: chart reviewed. Discussed with Nursing. Met with patient. Aware of 's . Aware placement challenges. Guardianship in place and [place] order for olanzapine. Also aware of repeat CT to evaluate potential pulmonary nodules - this is not acute in nature. With adjusto writer operator reported she was okay and doing fine. Reported that she is being treated well here. Mood okay. Safe. Aware she has been in the hospital from December and is now March. Aware of placement challenges. Ongoing reluctance around medications. Medication Compliance: Yes ( As per Mervin) Side effects from medications: No Attending Groups: Intermittent Review of Systems Acute medical concerns: No Review of Systems Review of Systems unremarkable Mental Status Exam Mental Status Exam Narrative: seen in room. Appropriately dressed and fair hygiene. [place]. Aware roughly how long she has been in the hospital. Circumstances a little unclear. Denied depression, SI or HI. No overt psychosis noted. No agitation. Insight and judgment does appear limited Diagnostics Vital Signs (24Hr): Vital Signs - 24 hr 03/31/22 18:00 04/01/22 06:00 Temperature 97.0 F 97.7 F Pulse Rate 71 61 Respiratory Rate 18 16 Blood Pressure 147/75 H 147/67 H Pulse Oximetry 94 97 Oxygen Delivery Method Room Air Room Air BMI result Body Mass Index 24.4 Labs 01/20/22 08:00 01/20/22 08:00 Imaging Radiology Impressions: ITS Impressions Chest CT 01/10/22 15:11 IMPRESSION: Bilateral small pulmonary nodules, left greater than right. Biapical pleural and parenchymal scarring. 1.1 x 1.4 cm heterogeneous or semisolid right apical nodule, question related to pleural and parenchymal scarring. 1.5 cm partially calcified left thyroid nodule. Based on patient age in size, this does not meet criteria for follow-up. Moderate coronary artery calcification. Fleischner guidelines were followed. Chest CT 04/01/22 14:44 IMPRESSION: *Unchanged semisolid 1.5 cm x 1.0 cm nodule within the apex of the right pulmonary lobe. Per the Fleischner Society 2017 revised guidelines, as clinically indicated recommend annual screening CT to demonstrate stability to demonstrate ultimate 5 year stability. *Unchanged small number of scattered solid pulmonary nodules ranging in size up to 6 mm diameter stable compared with 01/10/2022. *Moderate-marked diffuse coronary artery calcific atherosclerosis. *Partially visualized posttreatment related changes of the right breast. Medications Medications Current Medications Amlodipine Besylate (Amlodipine Besylate 10 Mg Tablet) 10 mg PO BEDTIME TIMOTEO; Protocol Last Admin: 03/31/22 20:27 Dose: 10 mg Donepezil HCl (Donepezil Hcl 5 Mg Tablet) 5 mg PO BEDTIME TIMOTEO Last Admin: 03/31/22 20:26 Dose: 5 mg Hydrochlorothiazide (Hydrochlorothiazide 12.5 Mg Tablet) 12.5 mg PO DAILY TIMOTEO; Protocol Last Admin: 04/01/22 08:25 Dose: 12.5 mg Hydrocortisone (Hydrocortisone 1 % Cream 28.35 Gm Tube) 1 appl TOPICAL DAILY PRN PRN Reason: pruritic skin Olanzapine (Olanzapine 5 Mg Tablet) 5 mg PO BEDTIME TIMOTEO Last Admin: 03/31/22 20:26 Dose: 5 mg Olanzapine (Olanzapine 10 Mg Vial) 5 mg IM BEDTIME PRN PRN Reason: refusal of PO Oxybutynin Chloride (Oxybutynin Chloride Er 5 Mg Tab.Er.24) 5 mg PO BID TIMOTEO Last Admin: 04/01/22 08:26 Dose: 5 mg Trazodone HCl (Trazodone Hcl 50 Mg Tablet) 50 mg PO BEDTIME PRN PRN Reason: insomnia Last Admin: 03/29/22 20:43 Dose: 50 mg Allergies Allergies Allergy/AdvReac Type Severity Reaction Status Date / Time codeine Allergy Unknown Unknown Verified 12/15/21 18:29 sulfadiazine Allergy Unknown Unknown Verified 12/15/21 18:29 Assessment & Plan Assessment & Plan (1) Dementia: Status: Acute Code(s): F03.90 - Unspecified dementia, unspecified severity, without behavioral disturbance, psychotic disturbance, mood disturbance, and anxiety Plan The patient is an elderly female, recently , with poor social support, no help from family or a with and says, admitted into the hospital for psychotic symptoms elicited by paranoia against a major of was [place], failure to thrive and hoarding. Please see the HPI of the admission note for further details. Currently on Section 7 and 8 since the patient wants to leave and does not have any insight into her condition. Plan 1. Continue with Zyprexa as per court order. 2. Guardianship paperwork since the patient cannot take informed decisions. 3. The oncologist already review her case due to the masses of her both lungs but the patient refused to have the procedure of biopsy. 4. MOLST will be discussed again and try to get it sign. Apparently the patient does not have capacity to take informed decisions regarding her MOLST. 5. We need a guardian so we can offer all the medical treatment that she needs at this moment so far, she has refused any treatment or diagnostic procedures for the nodules on her chest. 6. We had guardianship and a doctor podiatric medicine was appointed. We will redirect the family to coordinate efforts. 7. I called today to her guardian and explained that she needs to have a biopsy, the guardian will sign the consent. I also inform Oncology about this. I provided information to Oncology Service. Oncology saw her on March 08 and they suggested to do a new CT scan of the chest next month in March. The patient has refused to do a biopsy and we will discuss this with the guardian. 8. Waiting for placement. 9. Change Ditropan xl to 5 mg to bid. 10. Blood work for tomorrow, apparently the patient refused. 11. CT scan thorax ordered for Sunday but she refused. We will try to do it again on Sunday. The CT scan thorax is a follow-up for the oncology service. 04/01/2022: No changes to current treatment plan. Aware CT scan ordered for the weekend as part of follow-up for oncology services i.e. not acute Reason for contiued inpatient stay Substantial Risk for: inability to function Time Spent With Patient Time: Total time managing care of this patient today ____ minutes.
[2022-04-01 21:30] VITALS: BP 140/77; PULSE 60; RESP 17; TEMP 35.9; O2SAT 97
[2022-04-01] MEDS: amLODIPine Besylate 10 MG TABLET PO (21:50)
[2022-04-01] MEDS: Donepezil HCl 5 MG TABLET PO (21:50)
[2022-04-01] MEDS: traZODone HCL 50 MG TABLET PO (21:50)
[2022-04-01] MEDS: OLANZapine 5 MG TABLET PO (21:53)
[2022-04-02 06:00] VITALS: BP 134/62; PULSE 61; RESP 18; TEMP 36.7; O2SAT 95
[2022-04-02] MEDS: hydroCHLOROthiazide 12.5 MG TABLET PO (08:30)
--- NOTE | 2022-04-02 12:49 | P.PNPSI_ITS ---
Subjective Subjective Date of Service: 04/02/22 Reason For Visit: Mood Interim History: Chart reviewed. Discussed with Nursing. Met with patient. Aware of 's . Aware placement challenges. Guardianship in place and [place] order for olanzapine. Noted repeat CT 04/01- no significant changes. Reports she was okay and doing fine and being treated well. Ongoing reluctance around medications. Medication Compliance: Yes Side effects from medications: No Attending Groups: Intermittent Review of Systems Acute medical concerns: No Review of Systems Review of Systems nothing acute Mental Status Exam Mental Status Exam Narrative: seen in day area. Appropriately dressed and fair hygiene. [place]. Denied depression, SI or HI. No overt psychosis noted. No agitation. Insight and judgment does appear limited Diagnostics Vital Signs (24Hr): Vital Signs - 24 hr 04/01/22 21:30 04/02/22 06:00 Temperature 96.6 F L 98.1 F Pulse Rate 60 61 Respiratory Rate 17 18 Blood Pressure 140/77 H 134/62 Pulse Oximetry 97 95 Oxygen Delivery Method Room Air Room Air BMI result Body Mass Index 24.4 Labs 01/20/22 08:00 01/20/22 08:00 Imaging Radiology Impressions: ITS Impressions Chest CT 01/10/22 15:11 IMPRESSION: Bilateral small pulmonary nodules, left greater than right. Biapical pleural and parenchymal scarring. 1.1 x 1.4 cm heterogeneous or semisolid right apical nodule, question related to pleural and parenchymal scarring. 1.5 cm partially calcified left thyroid nodule. Based on patient age in size, this does not meet criteria for follow-up. Moderate coronary artery calcification. Fleischner guidelines were followed. Chest CT 04/01/22 14:44 IMPRESSION: *Unchanged semisolid 1.5 cm x 1.0 cm nodule within the apex of the right pulmonary lobe. Per the Fleischner Society 2017 revised guidelines, as clinically indicated recommend annual screening CT to demonstrate stability to demonstrate ultimate 5 year stability. *Unchanged small number of scattered solid pulmonary nodules ranging in size up to 6 mm diameter stable compared with 01/10/2022. *Moderate-marked diffuse coronary artery calcific atherosclerosis. *Partially visualized posttreatment related changes of the right breast. Medications Medications Current Medications Amlodipine Besylate (Amlodipine Besylate 10 Mg Tablet) 10 mg PO BEDTIME TIMOTEO; Protocol Last Admin: 04/01/22 21:50 Dose: 10 mg Donepezil HCl (Donepezil Hcl 5 Mg Tablet) 5 mg PO BEDTIME TIMOTEO Last Admin: 04/01/22 21:50 Dose: 5 mg Hydrochlorothiazide (Hydrochlorothiazide 12.5 Mg Tablet) 12.5 mg PO DAILY TIMOTEO; Protocol Last Admin: 04/02/22 08:30 Dose: 12.5 mg Hydrocortisone (Hydrocortisone 1 % Cream 28.35 Gm Tube) 1 appl TOPICAL DAILY PRN PRN Reason: pruritic skin Olanzapine (Olanzapine 5 Mg Tablet) 5 mg PO BEDTIME TIMOTEO Last Admin: 04/01/22 21:53 Dose: 5 mg Olanzapine (Olanzapine 10 Mg Vial) 5 mg IM BEDTIME PRN PRN Reason: refusal of PO Oxybutynin Chloride (Oxybutynin Chloride Er 5 Mg Tab.Er.24) 5 mg PO BID TIMOTEO Last Admin: 04/02/22 08:30 Dose: 5 mg Trazodone HCl (Trazodone Hcl 50 Mg Tablet) 50 mg PO BEDTIME PRN PRN Reason: insomnia Last Admin: 04/01/22 21:50 Dose: 50 mg Allergies Allergies Allergy/AdvReac Type Severity Reaction Status Date / Time codeine Allergy Unknown Unknown Verified 12/15/21 18:29 sulfadiazine Allergy Unknown Unknown Verified 12/15/21 18:29 Assessment & Plan Assessment & Plan (1) Dementia: Status: Acute Code(s): F03.90 - Unspecified dementia, unspecified severity, without behavioral disturbance, psychotic disturbance, mood disturbance, and anxiety Plan The patient is an elderly female, recently , with poor social support, no help from family or a with and says, admitted into the hospital for psychotic symptoms elicited by paranoia against a major of [facility], failure to thrive and hoarding. Please see the HPI of the admission note for further details. Currently on Section 7 and 8 since the patient wants to leave and does not have any insight into her condition. Plan 1. Continue with Zyprexa as per court order. 2. Guardianship paperwork since the patient cannot take informed decisions. 3. The oncologist already review her case due to the masses of her both lungs but the patient refused to have the procedure of biopsy. 4. MOLST will be discussed again and try to get it sign. Apparently the patient does not have capacity to take informed decisions regarding her MOLST. 5. We need a guardian so we can offer all the medical treatment that she needs a t this moment so far, she has refused any treatment or diagnostic procedures for the nodules on her chest. 6. We had guardianship and a combat systems officer was appointed. We will redirect the family to coordinate efforts. 7. I called today to her guardian and explained that she needs to have a biopsy, the guardian will sign the consent. I also inform Oncology about this. I provided information to Oncology Service. Oncology saw her on March 08 and they suggested to do a new CT scan of the chest next month in March. The patient has refused to do a biopsy and we will discuss this with the guardian. 8. Waiting for placement. 9. Change Ditropan xl to 5 mg to bid. 10. Blood work for tomorrow, apparently the patient refused. 11. CT scan thorax ordered for Sunday but she refused. We will try to do it again on Sunday. The CT scan thorax is a follow-up for the oncology service. 04/01/2022: No changes to current treatment plan. Aware CT scan ordered for the weekend as part of follow-up for oncology services i.e. not acute 04/02: no changes. Noted repeat CT 04/01- no significant changes. Reason for contiued inpatient stay Substantial Risk for: inability to function Time Spent With Patient Time: Total time managing care of this patient today ____ minutes.
[2022-04-02 18:00] VITALS: BP 136/55; PULSE 66; RESP 18; TEMP 36.4; O2SAT 92
[2022-04-02] MEDS: Donepezil HCl 5 MG TABLET PO (22:21)
[2022-04-02] MEDS: traZODone HCL 50 MG TABLET PO (22:21)
[2022-04-02] MEDS: amLODIPine Besylate 10 MG TABLET PO (22:21)
[2022-04-02] MEDS: OLANZapine 5 MG TABLET PO (22:21)
[2022-04-03 06:00] VITALS: BP 170/74; PULSE 77; RESP 16; TEMP 36.6; O2SAT 96
[2022-04-03] MEDS: hydroCHLOROthiazide 12.5 MG TABLET PO (09:52)
--- NOTE | 2022-04-03 17:02 | P.PNPSI_ITS ---
Subjective Subjective Date of Service: 04/03/22 Reason For Visit: Mood Subjective Notes: Section 7 and Section 8 Interim History: The nursing staff reported the patient has been compliant with treatment. Her CT scan of the thorax came back normal with no changes. No evidence of metastasis. On interview the patient denies new symptoms. Mental Status Exam Mental Status Exam Patient Appearance: Appropriate Patient Orientation: Person and Situation Level of Consciousness: Awake and Appropriate Patient Behavior: Guarded and Passive Mood Description: Constricted Affect Description: Withdrawn Patient Cognition Impaired: Yes Ability to Follow Directions: Fair Speech Pattern: Clear Hallucinations: None Delusions: Paranoid Ideation Thought Process: Distracted and Slowed Thinking Thought Content: positive for [place] and positive for Circumstantial Judgement: Fair Diagnostics Vital Signs (24Hr): Vital Signs - 24 hr 04/02/22 18:00 04/03/22 06:00 Temperature 97.6 F 98 F Pulse Rate 66 77 Respiratory Rate 18 16 Blood Pressure 136/55 L 170/74 H Pulse Oximetry 92 96 Oxygen Delivery Method Room Air Room Air BMI result Body Mass Index 24.4 Labs 01/20/22 08:00 01/20/22 08:00 Imaging Radiology Impressions: ITS Impressions Chest CT 01/10/22 15:11 IMPRESSION: Bilateral small pulmonary nodules, left greater than right. Biapical pleural and parenchymal scarring. 1.1 x 1.4 cm heterogeneous or semisolid right apical nodule, question related to pleural and parenchymal scarring. 1.5 cm partially calcified left thyroid nodule. Based on patient age in size, this does not meet criteria for follow-up. Moderate coronary artery calcification. Fleischner guidelines were followed. Chest CT 04/01/22 14:44 IMPRESSION: *Unchanged semisolid 1.5 cm x 1.0 cm nodule within the apex of the right pulmonary lobe. Per the Fleischner Society 2017 revised guidelines, as clinically indicated recommend annual screening CT to demonstrate stability to demonstrate ultimate 5 year stability. *Unchanged small number of scattered solid pulmonary nodules ranging in size up to 6 mm diameter stable compared with 01/10/2022. *Moderate-marked diffuse coronary artery calcific atherosclerosis. *Partially visualized posttreatment related changes of the right breast. Medications Medications Current Medications Amlodipine Besylate (Amlodipine Besylate 10 Mg Tablet) 10 mg PO BEDTIME TIMOTEO; Protocol Last Admin: 04/02/22 22:21 Dose: 10 mg Donepezil HCl (Donepezil Hcl 5 Mg Tablet) 5 mg PO BEDTIME TIMOTEO Last Admin: 04/02/22 22:21 Dose: 5 mg Hydrochlorothiazide (Hydrochlorothiazide 12.5 Mg Tablet) 12.5 mg PO DAILY TIMOTEO; Protocol Last Admin: 04/03/22 09:52 Dose: 12.5 mg Hydrocortisone (Hydrocortisone 1 % Cream 28.35 Gm Tube) 1 appl TOPICAL DAILY PRN PRN Reason: pruritic skin Olanzapine (Olanzapine 5 Mg Tablet) 5 mg PO BEDTIME TIMOTEO Last Admin: 04/02/22 22:21 Dose: 5 mg Olanzapine (Olanzapine 10 Mg Vial) 5 mg IM BEDTIME PRN PRN Reason: refusal of PO Oxybutynin Chloride (Oxybutynin Chloride Er 5 Mg Tab.Er.24) 5 mg PO BID TIMOTEO Last Admin: 04/03/22 09:53 Dose: 5 mg Trazodone HCl (Trazodone Hcl 50 Mg Tablet) 50 mg PO BEDTIME PRN PRN Reason: insomnia Last Admin: 04/02/22 22:21 Dose: 50 mg Allergies Allergies Allergy/AdvReac Type Severity Reaction Status Date / Time codeine Allergy Unknown Unknown Verified 12/15/21 18:29 sulfadiazine Allergy Unknown Unknown Verified 12/15/21 18:29 Assessment & Plan Assessment & Plan (1) Dementia: Status: Acute Code(s): F03.90 - Unspecified dementia, unspecified severity, without behavioral disturbance, psychotic disturbance, mood disturbance, and anxiety Plan The patient is an elderly female, recently , with poor social support, no help from family or a with and says, admitted into the hospital for psychotic symptoms elicited by paranoia against a major of [facility], failure to thrive and hoarding. Please see the HPI of the admission note for further details. Currently on Section 7 and 8 since the patient wants to leave and does not have any insight into her condition. Plan 1. Continue with Zyprexa as per court order. 2. Guardianship paperwork since the patient cannot take informed decisions. 3. The oncologist already review her case due to the masses of her both lungs but the patient refused to have the procedure of biopsy. 4. MOLST will be discussed again and try to get it sign. Apparently the patient does not have capacity to take informed decisions regarding her MOLST. 5. We need a guardian so we can offer all the medical treatment that she needs at this moment so far, she has refused any treatment or diagnostic procedures for the nodules on her chest. 6. We had guardianship and a cardiopulmonary specialist was appointed. We will redirect the family to coordinate efforts. 7. I called today to her guardian and explained that she needs to have a biopsy, the guardian will sign the consent. I also inform Oncology about this. I provided information to Oncology Service. Oncology saw her on March 08 and they suggested to do a new CT scan of the chest next month in March. The patient has refused to do a biopsy and we will discuss this with the guardian. 8. Waiting for placement. 9. Change Ditropan xl to 5 mg to bid. 10. Blood work for tomorrow, apparently the patient refused. 11. CT scan thorax ordered for Sunday but she refused. We will try to do it again on Sunday. The CT scan thorax is a follow-up for the oncology service. The CT scan came back normal with no changes Reason for contiued inpatient stay Substantial Risk for: inability to function, rapid decompensation and med/psych decompensation Time Spent With Patient Time: Total time managing care of this patient today __20__ minutes.
[2022-04-03 18:00] VITALS: BP 156/85; PULSE 63; RESP 18; TEMP 36.3; O2SAT 92
[2022-04-03] MEDS: amLODIPine Besylate 10 MG TABLET PO (20:21)
[2022-04-03] MEDS: Donepezil HCl 5 MG TABLET PO (20:22)
[2022-04-03] MEDS: OLANZapine 5 MG TABLET PO (20:22)
--- NOTE | 2022-04-04 15:36 | HO.PSYCHPN ---
Subjective Subjective Date of Service: 04/04/22 Reason For Visit: Mood Subjective Notes: Section 7 and Section 8 Interim History: The nursing staff reported the patient had been compliant with treatment, she remains by herself and she participates minimally in groups. On interview the patient denies new symptoms waiting for placement. Mental Status Exam Mental Status Exam Patient Appearance: Appropriate Patient Orientation: Person and Situation Level of Consciousness: Awake Patient Behavior: Guarded and Passive Mood Description: Withdrawn Affect Description: Constricted Patient Cognition Impaired: Yes Ability to Follow Directions: Good Speech Pattern: Clear Hallucinations: None Delusions: Not Present Thought Process: Linear Thought Content: positive for Circumstantial Judgement: Fair Diagnostics Vital Signs (24Hr): Vital Signs - 24 hr 04/03/22 18:00 Temperature 97.4 F Pulse Rate 63 Respiratory Rate 18 Blood Pressure 156/85 H Pulse Oximetry 92 Oxygen Delivery Method Room Air BMI result Body Mass Index 24.4 Labs 01/20/22 08:00 01/20/22 08:00 Imaging Radiology Impressions: ITS Impressions Chest CT 01/10/22 15:11 IMPRESSION: Bilateral small pulmonary nodules, left greater than right. Biapical pleural and parenchymal scarring. 1.1 x 1.4 cm heterogeneous or semisolid right apical nodule, question related to pleural and parenchymal scarring. 1.5 cm partially calcified left thyroid nodule. Based on patient age in size, this does not meet criteria for follow-up. Moderate coronary artery calcification. Fleischner guidelines were followed. Chest CT 04/01/22 14:44 IMPRESSION: *Unchanged semisolid 1.5 cm x 1.0 cm nodule within the apex of the right pulmonary lobe. Per the Fleischner Society 2017 revised guidelines, as clinically indicated recommend annual screening CT to demonstrate stability to demonstrate ultimate 5 year stability. *Unchanged small number of scattered solid pulmonary nodules ranging in size up to 6 mm diameter stable compared with 01/10/2022. *Moderate-marked diffuse coronary artery calcific atherosclerosis. *Partially visualized posttreatment related changes of the right breast. Medications Medications Current Medications Amlodipine Besylate (Amlodipine Besylate 10 Mg Tablet) 10 mg PO BEDTIME TIMOTEO; Protocol Last Admin: 04/03/22 20:21 Dose: 10 mg Donepezil HCl (Donepezil Hcl 5 Mg Tablet) 5 mg PO BEDTIME TIMOTEO Last Admin: 04/03/22 20:22 Dose: 5 mg Hydrochlorothiazide (Hydrochlorothiazide 12.5 Mg Tablet) 12.5 mg PO DAILY TIMOTEO; Protocol Last Admin: 04/04/22 10:43 Dose: Not Given Hydrocortisone (Hydrocortisone 1 % Cream 28.35 Gm Tube) 1 appl TOPICAL DAILY PRN PRN Reason: pruritic skin Olanzapine (Olanzapine 5 Mg Tablet) 5 mg PO BEDTIME TIMOTEO Last Admin: 04/03/22 20:22 Dose: 5 mg Olanzapine (Olanzapine 10 Mg Vial) 5 mg IM BEDTIME PRN PRN Reason: refusal of PO Oxybutynin Chloride (Oxybutynin Chloride Er 5 Mg Tab.Er.24) 5 mg PO BID TIMOTEO Last Admin: 04/04/22 10:43 Dose: Not Given Trazodone HCl (Trazodone Hcl 50 Mg Tablet) 50 mg PO BEDTIME PRN PRN Reason: insomnia Last Admin: 04/02/22 22:21 Dose: 50 mg Allergies Allergies Allergy/AdvReac Type Severity Reaction Status Date / Time codeine Allergy Unknown Unknown Verified 12/15/21 18:29 sulfadiazine Allergy Unknown Unknown Verified 12/15/21 18:29 Assessment & Plan Assessment & Plan (1) Dementia: Status: Acute Code(s): F03.90 - Unspecified dementia, unspecified severity, without behavioral disturbance, psychotic disturbance, mood disturbance, and anxiety Plan The patient is an elderly female, recently , with poor social support, no help from family or a with and says, admitted into the hospital for psychotic symptoms elicited by paranoia against a major of [facility], failure to thrive and hoarding. Please see the HPI of the admission note for further details. Currently on Section 7 and 8 since the patient wants to leave and does not have any insight into her condition. Plan 1. Continue with Zyprexa as per court order. 2. Guardianship paperwork since the patient cannot take informed decisions. 3. The oncologist already review her case due to the masses of her both lungs but the patient refused to have the procedure of biopsy. 4. MOLST will be discussed again and try to get it sign. Apparently the patient does not have capacity to take informed decisions regarding her MOLST. 5. We need a guardian so we can offer all the medical treatment that she needs at this moment so far, she has refused any treatment or diagnostic procedures for the nodules on her chest. 6. We had guardianship and a mechanical technologist was appointed. We will redirect the family to coordinate efforts. 7. I called today to her guardian and explained that she needs to have a biopsy, the guardian will sign the consent. I also inform Oncology about this. I provided information to Oncology Service. Oncology saw her on March 08 and they suggested to do a new CT scan of the chest next month in March. The patient has refused to do a biopsy and we will discuss this with the guardian. 8. Waiting for placement. 9. Change Ditropan xl to 5 mg to bid. 10. Blood work for tomorrow, apparently the patient refused. 11. CT scan thorax ordered for Sunday but she refused. We will try to do it again on Sunday. The CT scan thorax is a follow-up for the oncology service. The CT scan came back normal with no changes. 12. Urology consult for tomorrow Reason for contiued inpatient stay Substantial Risk for: inability to function, rapid decompensation and med/psych decompensation Time Spent With Patient Time: Total time managing care of this patient today _20___ minutes.
[2022-04-04 18:00] VITALS: BP 161/76; PULSE 61; RESP 18; TEMP 36.7; O2SAT 94
[2022-04-04] MEDS: OLANZapine 10 MG VIAL 5 MG IM (23:12)
[2022-04-05 07:30] VITALS: BP 145/76; PULSE 61; RESP 16; TEMP 36.2; O2SAT 97
[2022-04-05] MEDS: hydroCHLOROthiazide 12.5 MG TABLET PO (09:48)
--- NOTE | 2022-04-05 14:41 | HO.PSYCHPN ---
Subjective Subjective Date of Service: 04/05/22 Reason For Visit: Mood Subjective Notes: Section 7 and Section 8 Interim History: The nursing staff reported the patient was agitated last night and she needed to have her Zyprexa IM as per court order. She was very upset since she was waking up to take her medications. The web content & social media manager reported that finally could contact the guardian and she was referred to another senior care facilities. [facility] is assessing her. On interview the patient was angry stating that she got an injection against her will and I explained that is court order. No new symptoms Mental Status Exam Mental Status Exam Patient Appearance: Appropriate Patient Orientation: Person Level of Consciousness: Awake and Appropriate Patient Behavior: Guarded Mood Description: Withdrawn Affect Description: Constricted Patient Cognition Impaired: Yes Ability to Follow Directions: Good Speech Pattern: Clear Hallucinations: None Delusions: Paranoid Ideation Thought Process: Illogical and Distracted Thought Content: positive for [place], positive for [place] and positive for [place] of Content Judgement: Poor Diagnostics Vital Signs (24Hr): Vital Signs - 24 hr 04/04/22 18:00 04/05/22 07:30 Temperature 98.1 F 97.1 F Pulse Rate 61 61 Respiratory Rate 18 16 Blood Pressure 161/76 H 145/76 H Pulse Oximetry 94 97 Oxygen Delivery Method Room Air Room Air BMI result Body Mass Index 24.4 Labs 01/20/22 08:00 01/20/22 08:00 Imaging Radiology Impressions: ITS Impressions Chest CT 01/10/22 15:11 IMPRESSION: Bilateral small pulmonary nodules, left greater than right. Biapical pleural and parenchymal scarring. 1.1 x 1.4 cm heterogeneous or semisolid right apical nodule, question related to pleural and parenchymal scarring. 1.5 cm partially calcified left thyroid nodule. Based on patient age in size, this does not meet criteria for follow-up. Moderate coronary artery calcification. Fleischner guidelines were followed. Chest CT 04/01/22 14:44 IMPRESSION: *Unchanged semisolid 1.5 cm x 1.0 cm nodule within the apex of the right pulmonary lobe. Per the Fleischner Society 2017 revised guidelines, as clinically indicated recommend annual screening CT to demonstrate stability to demonstrate ultimate 5 year stability. *Unchanged small number of scattered solid pulmonary nodules ranging in size up to 6 mm diameter stable compared with 01/10/2022. *Moderate-marked diffuse coronary artery calcific atherosclerosis. *Partially visualized posttreatment related changes of the right breast. Medications Medications Current Medications Amlodipine Besylate (Amlodipine Besylate 10 Mg Tablet) 10 mg PO BEDTIME TIMOTEO; Protocol Last Admin: 04/04/22 23:08 Dose: Not Given Donepezil HCl (Donepezil Hcl 5 Mg Tablet) 5 mg PO BEDTIME TIMOTEO Last Admin: 04/04/22 23:08 Dose: Not Given Hydrochlorothiazide (Hydrochlorothiazide 12.5 Mg Tablet) 12.5 mg PO DAILY TIMOTEO; Protocol Last Admin: 04/05/22 09:48 Dose: 12.5 mg Hydrocortisone (Hydrocortisone 1 % Cream 28.35 Gm Tube) 1 appl TOPICAL DAILY PRN PRN Reason: pruritic skin Olanzapine (Olanzapine 5 Mg Tablet) 5 mg PO BEDTIME TIMOTEO Last Admin: 04/04/22 23:13 Dose: Not Given Olanzapine (Olanzapine 10 Mg Vial) 5 mg IM BEDTIME PRN PRN Reason: refusal of PO Last Admin: 04/04/22 23:12 Dose: 5 mg Oxybutynin Chloride (Oxybutynin Chloride Er 5 Mg Tab.Er.24) 5 mg PO BID TIMOTEO Last Admin: 04/05/22 09:48 Dose: 5 mg Trazodone HCl (Trazodone Hcl 50 Mg Tablet) 50 mg PO BEDTIME PRN PRN Reason: insomnia Last Admin: 04/02/22 22:21 Dose: 50 mg Allergies Allergies Allergy/AdvReac Type Severity Reaction Status Date / Time codeine Allergy Unknown Unknown Verified 12/15/21 18:29 sulfadiazine Allergy Unknown Unknown Verified 12/15/21 18:29 Assessment & Plan Assessment & Plan (1) Dementia: Status: Acute Code(s): F03.90 - Unspecified dementia, unspecified severity, without behavioral disturbance, psychotic disturbance, mood disturbance, and anxiety Plan The patient is an elderly female, recently , with poor social support, no help from family or a with and says, admitted into the hospital for psychotic symptoms elicited by paranoia against a major of was [place], failure to thrive and hoarding. Please see the HPI of the admission note for further details. Currently on Section 7 and 8 since the patient wants to leave and does not have any insight into her condition. Plan 1. Continue with Zyprexa as per court order. 2. Guardianship paperwork since the patient cannot take informed decisions. 3. The oncologist already review her case due to the masses of her both lungs but the patient refused to have the procedure of biopsy. 4. MOLST will be discussed again and try to get it sign. Apparently the patient does not have capacity to take informed decisions regarding her MOLST. 5. We need a guardian so we can offer all the medical treatment that she needs at this moment so far, she has refused any treatment or diagnostic procedures for the nodules on her chest. 6. We had guardianship and a assistant manager was appointed. We will redirect the family to coordinate efforts. 7. I called today to her guardian and explained that she needs to have a biopsy, the guardian will sign the consent. I also inform Oncology about this. I provided information to Oncology Service. Oncology saw her on March 08 and they suggested to do a new CT scan of the chest next month in March. The patient has refused to do a biopsy and we will discuss this with the guardian. 8. Waiting for placement. 9. Change Ditropan xl to 5 mg to bid. 10. Blood work for tomorrow, apparently the patient refused. 11. CT scan thorax ordered for Sunday but she refused. We will try to do it again on Sunday. The CT scan thorax is a follow-up for the oncology service. The CT scan came back normal with no changes. 12. Urology consult for tomorrow Reason for contiued inpatient stay Substantial Risk for: inability to function, rapid decompensation and med/psych decompensation Time Spent With Patient Time: Total time managing care of this patient today _20___ minutes.
[2022-04-05 18:00] VITALS: BP 158/70; PULSE 64; RESP 18; TEMP 36.3; O2SAT 95
[2022-04-05] MEDS: traZODone HCL 50 MG TABLET PO (20:20)
[2022-04-05] MEDS: OLANZapine 5 MG TABLET PO (20:20)
[2022-04-05] MEDS: amLODIPine Besylate 10 MG TABLET PO (20:20)
[2022-04-05] MEDS: Donepezil HCl 5 MG TABLET PO (20:21)
[2022-04-06 07:30] VITALS: BP 140/66; PULSE 58; RESP 16; TEMP 36.9; O2SAT 95
[2022-04-06] MEDS: hydroCHLOROthiazide 12.5 MG TABLET PO (09:50)
--- NOTE | 2022-04-06 15:52 | HO.PSYCHPN ---
Subjective Subjective Date of Service: 04/06/22 Reason For Visit: Mood Subjective Notes: Section 7 and Section 8 Interim History: The nursing staff reported patient has been compliant with treatment she has been very angry lab I will at times. The social services specialist reported that [facility] is not responding for the assessment. On interview the patient denies new symptoms, I referred to Urology due to urinary incontinence. Mental Status Exam Mental Status Exam Patient Appearance: Well Grooomed Patient Orientation: Person and Situation Level of Consciousness: Awake and Appropriate Patient Behavior: Appropriate Mood Description: Withdrawn Affect Description: Constricted Patient Cognition Impaired: Yes Ability to Follow Directions: Fair Speech Pattern: Clear Hallucinations: None Delusions: Not Present Thought Process: Linear Judgement: Fair Diagnostics Vital Signs (24Hr): Vital Signs - 24 hr 04/05/22 18:00 Temperature 97.4 F Pulse Rate 64 Respiratory Rate 18 Blood Pressure 158/70 H Pulse Oximetry 95 Oxygen Delivery Method Room Air BMI result Body Mass Index 24.4 Labs 01/20/22 08:00 01/20/22 08:00 Imaging Radiology Impressions: ITS Impressions Chest CT 01/10/22 15:11 IMPRESSION: Bilateral small pulmonary nodules, left greater than right. Biapical pleural and parenchymal scarring. 1.1 x 1.4 cm heterogeneous or semisolid right apical nodule, question related to pleural and parenchymal scarring. 1.5 cm partially calcified left thyroid nodule. Based on patient age in size, this does not meet criteria for follow-up. Moderate coronary artery calcification. Fleischner guidelines were followed. Chest CT 04/01/22 14:44 IMPRESSION: *Unchanged semisolid 1.5 cm x 1.0 cm nodule within the apex of the right pulmonary lobe. Per the Fleischner Society 2017 revised guidelines, as clinically indicated recommend annual screening CT to demonstrate stability to demonstrate ultimate 5 year stability. *Unchanged small number of scattered solid pulmonary nodules ranging in size up to 6 mm diameter stable compared with 01/10/2022. *Moderate-marked diffuse coronary artery calcific atherosclerosis. *Partially visualized posttreatment related changes of the right breast. Medications Medications Current Medications Amlodipine Besylate (Amlodipine Besylate 10 Mg Tablet) 10 mg PO BEDTIME TIMOTEO; Protocol Last Admin: 04/05/22 20:20 Dose: 10 mg Bacitracin (Bacitracin Oint 14 Gm Tube) 1 appl TOPICAL BID TIMOTEO; Protocol Donepezil HCl (Donepezil Hcl 5 Mg Tablet) 5 mg PO BEDTIME TIMOTEO Last Admin: 04/05/22 20:21 Dose: 5 mg Hydrochlorothiazide (Hydrochlorothiazide 12.5 Mg Tablet) 12.5 mg PO DAILY TIMOTEO; Protocol Last Admin: 04/06/22 09:50 Dose: 12.5 mg Hydrocortisone (Hydrocortisone 1 % Cream 28.35 Gm Tube) 1 appl TOPICAL DAILY PRN PRN Reason: pruritic skin Olanzapine (Olanzapine 5 Mg Tablet) 5 mg PO BEDTIME TIMOTEO Last Admin: 04/05/22 20:20 Dose: 5 mg Olanzapine (Olanzapine 10 Mg Vial) 5 mg IM BEDTIME PRN PRN Reason: refusal of PO Last Admin: 04/04/22 23:12 Dose: 5 mg Oxybutynin Chloride (Oxybutynin Chloride Er 5 Mg Tab.Er.24) 5 mg PO BID TIMOTEO Last Admin: 04/06/22 09:50 Dose: 5 mg Trazodone HCl (Trazodone Hcl 50 Mg Tablet) 50 mg PO BEDTIME PRN PRN Reason: insomnia Last Admin: 04/05/22 20:20 Dose: 50 mg Allergies Allergies Allergy/AdvReac Type Severity Reaction Status Date / Time codeine Allergy Unknown Unknown Verified 12/15/21 18:29 sulfadiazine Allergy Unknown Unknown Verified 12/15/21 18:29 Assessment & Plan Assessment & Plan (1) Dementia: Status: Acute Code(s): F03.90 - Unspecified dementia, unspecified severity, without behavioral disturbance, psychotic disturbance, mood disturbance, and anxiety Plan The patient is an elderly female, recently , with poor social support, no help from family or a with and says, admitted into the hospital for psychotic symptoms elicited by paranoia against a major of [facility], failure to thrive and hoarding. Please see the HPI of the admission note for further details. Currently on Section 7 and 8 since the patient wants to leave and does not have any insight into her condition. Plan 1. Continue with Zyprexa as per court order. 2. Guardianship paperwork since the patient cannot take informed decisions. 3. The oncologist already review her case due to the masses of her both lungs but the patient refused to have the procedure of biopsy. 4. MOLST will be discussed again and try to get it sign. Apparently the patient does not have capacity to take informed decisions regarding her MOLST. 5. We need a guardian so we can offer all the medical treatment that she needs at this moment so far, she has refused any treatment or diagnostic procedures for the nodules on her chest. 6. We had guardianship and a enrollment processor was appointed. We will redirect the family to coordinate efforts. 7. I called today to her guardian and explained that she needs to have a biopsy, the guardian will sign the consent. I also inform Oncology about this. I provided information to Oncology Service. Oncology saw her on March 08 and they suggested to do a new CT scan of the chest next month in March. The patient has refused to do a biopsy and we will discuss this with the guardian. 8. Waiting for placement. 9. Change Ditropan xl to 5 mg to bid. 10. Blood work for tomorrow, apparently the patient refused. 11. CT scan thorax ordered for Sunday but she refused. We will try to do it again on Sunday. The CT scan thorax is a follow-up for the oncology service. The CT scan came back normal with no changes. 12. Urology consult. Reason for contiued inpatient stay Substantial Risk for: inability to function, rapid decompensation and med/psych decompensation Time Spent With Patient Time: Total time managing care of this patient today __20__ minutes.
[2022-04-06 18:00] VITALS: BP 133/73; PULSE 62; RESP 17; TEMP 36.6; O2SAT 94
[2022-04-06] MEDS: amLODIPine Besylate 10 MG TABLET PO (20:04)
[2022-04-06] MEDS: Donepezil HCl 5 MG TABLET PO (20:05)
[2022-04-06] MEDS: OLANZapine 5 MG TABLET PO (20:05)
--- NOTE | 2022-04-06 21:27 | PM.UROCN ---
History of Present Illness Consult details Consult date: 04/06/22 Reason for consult: other (urinary incontinence) Narrative: Betzaida is a 86 year old female, recently , with poor social support, and limited help of family. 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 She is also failure to thrive and noted to be hoarding.?Currently on Section 7 and 8 since the patient wants to leave and does not have any insight into her condition. Urology was consulted for urinary incontinence. In discussion with the patients nurse today it appears patient has been incontinent while she has been here and this is not a new issue for the patient. She refuses assistance with toileting and at times activities of daily living. It appears when patients home was assessed there were wet adult diapers in trash bag and also on the floor of her house. Nursing reports patient Ditropan was increased from 5mg daily to 5mg BID however no improvement in symptoms were noted. Upon assessment and evaluation of the patient today she was sitting in the [place] reading the news paper. She reports having urinary incontinence in the past and states this is not new for her however she does report the amount of urine when incontinent to be different. She states she use to be able to wear one pad/pull up however now is wearing two at one time and is urinating through them. She denies dysuria, fever, chills, hematuria, or flank pain. Of note, patient can be noted to be a poor historian and forgetful. When asked patient denies the urge to go she states I don't even know when its coming out . At this time if able recommendations for urine sample to be obtained for further assessment and evaluation of UTI. Also discussed time voiding and toilet scheduling with the patient as she reports no sensed urination. It would also be helpful to obtain post void residuals on the patient to further assess retention and or incomplete bladder emptying. Review of Systems Review of Systems: Yes Unobtainable due to mental status Constitutional: Constitutional: Reports no additional constitutional complaints Eyes: Eyes: Reports no additional eye complaints ENT: Reports system reviewed and no additional complaints, except as documented Cardiovascular: Cardiovascular: Reports no additional cardiovascular complaints Respiratory: Respiratory: Reports no additional respiratory complaints Gastrointestinal: Gastrointestinal: Reports no additional gastrointestinal complaints Genitourinary: Genitourinary: Reports as per HPI Musculoskeletal: Musculoskeletal: Reports no additional musculoskeletal complaints Integumentary/Breasts: Skin/Breast: Reports system reviewed and no additional complaints, except as docu Neurologic: Reports system reviewed and no additional complaints, except as documented and Reports confusion (at times speaking randomly and changing subject) Psychiatric: Psychiatric: Reports as per HPI and Reports confusion (at times speaking randomly and changing subject) Endocrine: Endocrine: Reports no additional endocrine complaints Hematologic/Lymphatic: Hematologic/Lymphatic: Reports no additional hematologic/lymphatic complaints Allergic/Immunologic: Allergic/Immunologic: Reports no additional allergic/immunologic complaints [facility] Past Medical History Medical History (Updated 04/06/22 @ 21:55 by RENALDO Ogden) Urinary incontinence Functional capacity: uses cane/walker Social History Social History Household Members: None Housing: House Do you presently have visiting nurse or other home services: No (per crisis eval pt. home to be condemned. passed approx 1 week ago) Unable to assess alcohol history related to: Refusing to respond Patient Tobacco Use Status: Tobacco use Unknown Use of substances other than those prescribed or required for medical reasons: Refusing to respond Last Used Substance: Unknown Currently Displaying Signs/Symptoms of Drug Intoxication Withdrawal: No Do you feel safe in your current relationship?: No Current Relationship Spiritual Healthcare Practices: refusing to respond Restorationist Healthcare Practices: refusing to respond Cultural Healthcare Practices: refusing to respond Advance Directives: No Advance Directives Information Provided: No Do you have thoughts of harming others: None Do you have a plan to hurt others: No Plan Recently lost weight without trying: Unsure How much weight loss: Unsure Nutrition Risks: Emaciation/Cachexia Patient : No : No Poor oral hygiene: No service: No Sexual orientation: Straight/Heterosexual Meds Allergies Allergy/AdvReac Type Severity Reaction Status Date / Time codeine Allergy Unknown Unknown Verified 12/15/21 18:29 sulfadiazine Allergy Unknown Unknown Verified 12/15/21 18:29 Active Medications: Current Medications Amlodipine Besylate (Amlodipine Besylate 10 Mg Tablet) 10 mg PO BEDTIME [facility]; Protocol Last Admin: 04/06/22 20:04 Dose: 10 mg Bacitracin (Bacitracin Oint 14 Gm Tube) 1 appl TOPICAL BID [facility]; Protocol Last Admin: 04/06/22 21:10 Dose: Not Given Hydrochlorothiazide (Hydrochlorothiazide 12.5 Mg Tablet) 12.5 mg PO DAILY [facility]; Protocol Last Admin: 04/06/22 09:50 Dose: 12.5 mg Hydrocortisone (Hydrocortisone 1 % Cream 28.35 Gm Tube) 1 appl TOPICAL DAILY PRN PRN Reason: pruritic skin Olanzapine (Olanzapine 5 Mg Tablet) 5 mg PO BEDTIME [facility] Last Admin: 04/06/22 20:05 Dose: 5 mg Olanzapine (Olanzapine 10 Mg Vial) 5 mg IM BEDTIME PRN PRN Reason: refusal of PO Last Admin: 04/04/22 23:12 Dose: 5 mg Oxybutynin Chloride (Oxybutynin Chloride Er 5 Mg Tab.Er.24) 5 mg PO BID [facility] Last Admin: 04/06/22 20:04 Dose: 5 mg Trazodone HCl (Trazodone Hcl 50 Mg Tablet) 50 mg PO BEDTIME PRN PRN Reason: insomnia Last Admin: 04/05/22 20:20 Dose: 50 mg Home Medications Medication Instructions Recorded Confirmed Last Taken Type atorvastatin 20 mg tablet 1 tab PO BEDTIME 12/16/21 12/16/21 Unknown History sertraline 25 mg tablet 1 tab PO BEDTIME 12/16/21 12/16/21 Unknown History trazodone 50 mg tablet 1 tab PO BEDTIME 12/16/21 12/16/21 Unknown History Physical Exam Const: Other: Patient is alert to person however not to time and or place. Appears unkempt. General: cooperative, comfortable, no acute distress, well developed, alert, awake, confusion (at times speaking randomly and changing subject) and poor hygiene Orientation/consciousness: oriented to person and confusion (at times speaking randomly and changing subject) HEENT: Head: Yes normal to inspection Eyes: General: appearance normal, both eyes and all related structures Neck: Neck: Yes normal visual inspection Chest: Chest palpation & inspection: normal inspection of the chest Resp: Effort & Inspection: normal respiratory effort and able to speak in complete sentences Cardio: Rate: regular rate GI: Inspection: Yes normal to inspection : General: Yes no CVA tenderness External Female Exam: normal external appearance Back/Spine/Pelvis: Back: no CVA tenderness Skin: General skin exam: dry skin Neuro: General: oriented to person, moves all extremities and confusion (at times speaking randomly and changing subject) Extrem: General: Yes normal to inspection Psych: Appearance: disheveled Speech and movement: Normal speech and movement present and Clear speech present Attitude: cooperative Insight: Limited insight present (Psych) Judgement: Limited judgement present (Psych) Results Labs 01/20/22 08:00 01/20/22 08:00 Labs: Urine 12/16/21 Range/Units 09:27 Urine Color Yellow Urine Appearance Turbid Urine pH 6.0 (5.0-9.0) Ur Specific [place] 1.010 (1.005-1.025) Urine Protein 100 (2+) H (Neg-Trace) mg/dL Urine Glucose (UA) Negative (Negative) mg/dL All other labs normal. Assessment and Plan (1) Urinary incontinence: Status: Acute Plan If able to obtain urine for urinalysis and culture to further assess and evaluate for possible UTI Post void residuals to be obtained and tracked to be sure patient is not retaining versus incomplete bladder emptying Toilet scheduling and timed voiding Given patient is reporting unsensed urination unlikely urological medications for incontinence will be beneficial at this time. Time Spent With Patient Time: Total time managing care of this patient today ____ minutes. Procedures Date of Service Date of Service: 04/06/22
[2022-04-07 06:00] VITALS: BP 126/56; PULSE 64; RESP 14; TEMP 36.6; O2SAT 100
[2022-04-07] MEDS: hydroCHLOROthiazide 12.5 MG TABLET PO (10:03)
--- NOTE | 2022-04-07 15:22 | HO.PSYCHPN ---
Subjective Subjective Date of Service: 04/07/22 Reason For Visit: Mood Subjective Notes: Conditional Voluntary Interim History: The nursing staff reported the patient had been compliant with treatment, new symptoms. The overall use came and assessed her and it seems that the medications are not going to work on her case, recommended a new urinalysis and a culture. On interview the patient denies new symptoms still confused unable to remember prior conversations Mental Status Exam Mental Status Exam Patient Appearance: Appropriate Patient Orientation: Person and Situation Level of Consciousness: Awake Patient Behavior: Guarded and Passive Mood Description: Calm Affect Description: Labile Patient Cognition Impaired: Yes Ability to Follow Directions: Good Speech Pattern: Clear Hallucinations: None Delusions: Paranoid Ideation Thought Process: Slowed Thinking Thought Content: positive for [place] Judgement: Poor Diagnostics Vital Signs (24Hr): Vital Signs - 24 hr 04/06/22 18:00 04/07/22 06:00 Temperature 97.8 F 98 F Pulse Rate 62 64 Respiratory Rate 17 14 Blood Pressure 133/73 126/56 L Pulse Oximetry 94 100 Oxygen Delivery Method Room Air Room Air BMI result Body Mass Index 24.4 Labs 01/20/22 08:00 01/20/22 08:00 Imaging Radiology Impressions: ITS Impressions Chest CT 01/10/22 15:11 IMPRESSION: Bilateral small pulmonary nodules, left greater than right. Biapical pleural and parenchymal scarring. 1.1 x 1.4 cm heterogeneous or semisolid right apical nodule, question related to pleural and parenchymal scarring. 1.5 cm partially calcified left thyroid nodule. Based on patient age in size, this does not meet criteria for follow-up. Moderate coronary artery calcification. Fleischner guidelines were followed. Chest CT 04/01/22 14:44 IMPRESSION: *Unchanged semisolid 1.5 cm x 1.0 cm nodule within the apex of the right pulmonary lobe. Per the Fleischner Society 2017 revised guidelines, as clinically indicated recommend annual screening CT to demonstrate stability to demonstrate ultimate 5 year stability. *Unchanged small number of scattered solid pulmonary nodules ranging in size up to 6 mm diameter stable compared with 01/10/2022. *Moderate-marked diffuse coronary artery calcific atherosclerosis. *Partially visualized posttreatment related changes of the right breast. Medications Medications Current Medications Amlodipine Besylate (Amlodipine Besylate 10 Mg Tablet) 10 mg PO BEDTIME [facility]; Protocol Last Admin: 04/06/22 20:04 Dose: 10 mg Bacitracin (Bacitracin Oint 14 Gm Tube) 1 appl TOPICAL BID [facility]; Protocol Last Admin: 04/06/22 21:10 Dose: Not Given Hydrochlorothiazide (Hydrochlorothiazide 12.5 Mg Tablet) 12.5 mg PO DAILY [facility]; Protocol Last Admin: 04/07/22 10:03 Dose: 12.5 mg Hydrocortisone (Hydrocortisone 1 % Cream 28.35 Gm Tube) 1 appl TOPICAL DAILY PRN PRN Reason: pruritic skin Olanzapine (Olanzapine 5 Mg Tablet) 5 mg PO BEDTIME [facility] Last Admin: 04/06/22 20:05 Dose: 5 mg Olanzapine (Olanzapine 10 Mg Vial) 5 mg IM BEDTIME PRN PRN Reason: refusal of PO Last Admin: 04/04/22 23:12 Dose: 5 mg Oxybutynin Chloride (Oxybutynin Chloride Er 5 Mg Tab.Er.24) 5 mg PO BID [facility] Last Admin: 04/07/22 10:03 Dose: Not Given Trazodone HCl (Trazodone Hcl 50 Mg Tablet) 50 mg PO BEDTIME PRN PRN Reason: insomnia Last Admin: 04/05/22 20:20 Dose: 50 mg Allergies Allergies Allergy/AdvReac Type Severity Reaction Status Date / Time codeine Allergy Unknown Unknown Verified 12/15/21 18:29 sulfadiazine Allergy Unknown Unknown Verified 12/15/21 18:29 Assessment & Plan Assessment & Plan (1) Urinary incontinence: Status: Acute Code(s): R32 - Unspecified urinary incontinence Plan If able to obtain urine for urinalysis and culture to further assess and evaluate for possible UTI Post void residuals to be obtained and tracked to be sure patient is not retaining versus incomplete bladder emptying Toilet scheduling and timed voiding Given patient is reporting unsensed urination unlikely urological medications for incontinence will be beneficial at this time. Psychiatry Plan 1. Continue same treatment, 2. Waiting for placement Reason for contiued inpatient stay Substantial Risk for: inability to function, rapid decompensation and med/psych decompensation Time Spent With Patient Time: Total time managing care of this patient today __20_ minutes.
[2022-04-07 18:00] VITALS: BP 148/81; PULSE 64; RESP 18; TEMP 36.8; O2SAT 93
[2022-04-07] MEDS: amLODIPine Besylate 10 MG TABLET PO (19:42)
[2022-04-07] MEDS: Bacitracin Oint 14 GM TUBE 1 APPL TOPICAL (19:42)
[2022-04-07] MEDS: OLANZapine 5 MG TABLET PO (19:42)
[2022-04-08 06:00] VITALS: BP 133/61; PULSE 58; RESP 15; TEMP 36.8; O2SAT 93
[2022-04-08] MEDS: hydroCHLOROthiazide 12.5 MG TABLET PO (09:32)
--- NOTE | 2022-04-08 12:03 | HO.PSYCHPN ---
Subjective Subjective Date of Service: 04/08/22 Reason For Visit: Mood Subjective Notes: Conditional Voluntary Interim History: Patient was seen and discussed in rounds today. Records and plans were reviewed. She has been stable and is doing well. She is medication compliant. Eating and sleeping adequately. She is awaiting placement. No complaints or side effects. No changes were made today Review of Systems Review of Systems Yes all other systems are reviewed and are negative Diagnostics Vital Signs (24Hr): Vital Signs - 24 hr 04/07/22 18:00 04/08/22 06:00 Temperature 98.2 F 98.3 F Pulse Rate 64 58 Respiratory Rate 18 15 Blood Pressure 148/81 H 133/61 Pulse Oximetry 93 93 Oxygen Delivery Method Room Air Room Air BMI result Body Mass Index 24.4 Labs 01/20/22 08:00 01/20/22 08:00 Imaging Radiology Impressions: ITS Impressions Chest CT 01/10/22 15:11 IMPRESSION: Bilateral small pulmonary nodules, left greater than right. Biapical pleural and parenchymal scarring. 1.1 x 1.4 cm heterogeneous or semisolid right apical nodule, question related to pleural and parenchymal scarring. 1.5 cm partially calcified left thyroid nodule. Based on patient age in size, this does not meet criteria for follow-up. Moderate coronary artery calcification. Fleischner guidelines were followed. Chest CT 04/01/22 14:44 IMPRESSION: *Unchanged semisolid 1.5 cm x 1.0 cm nodule within the apex of the right pulmonary lobe. Per the Fleischner Society 2017 revised guidelines, as clinically indicated recommend annual screening CT to demonstrate stability to demonstrate ultimate 5 year stability. *Unchanged small number of scattered solid pulmonary nodules ranging in size up to 6 mm diameter stable compared with 01/10/2022. *Moderate-marked diffuse coronary artery calcific atherosclerosis. *Partially visualized posttreatment related changes of the right breast. Medications Medications Current Medications Amlodipine Besylate (Amlodipine Besylate 10 Mg Tablet) 10 mg PO BEDTIME [facility]; Protocol Last Admin: 04/07/22 19:42 Dose: 10 mg Bacitracin (Bacitracin Oint 14 Gm Tube) 1 appl TOPICAL BID [facility]; Protocol Last Admin: 04/07/22 19:42 Dose: 1 appl Hydrochlorothiazide (Hydrochlorothiazide 12.5 Mg Tablet) 12.5 mg PO DAILY [facility]; Protocol Last Admin: 04/08/22 09:32 Dose: 12.5 mg Hydrocortisone (Hydrocortisone 1 % Cream 28.35 Gm Tube) 1 appl TOPICAL DAILY PRN PRN Reason: pruritic skin Olanzapine (Olanzapine 5 Mg Tablet) 5 mg PO BEDTIME [facility] Last Admin: 04/07/22 19:42 Dose: 5 mg Olanzapine (Olanzapine 10 Mg Vial) 5 mg IM BEDTIME PRN PRN Reason: refusal of PO Last Admin: 04/04/22 23:12 Dose: 5 mg Oxybutynin Chloride (Oxybutynin Chloride Er 5 Mg Tab.Er.24) 5 mg PO BID [facility] Last Admin: 04/08/22 09:32 Dose: Not Given Trazodone HCl (Trazodone Hcl 50 Mg Tablet) 50 mg PO BEDTIME PRN PRN Reason: insomnia Last Admin: 04/05/22 20:20 Dose: 50 mg Allergies Allergies Allergy/AdvReac Type Severity Reaction Status Date / Time codeine Allergy Unknown Unknown Verified 12/15/21 18:29 sulfadiazine Allergy Unknown Unknown Verified 12/15/21 18:29 Assessment & Plan Assessment & Plan (1) Urinary incontinence: Status: Acute Code(s): R32 - Unspecified urinary incontinence Plan If able to obtain urine for urinalysis and culture to further assess and evaluate for possible UTI Post void residuals to be obtained and tracked to be sure patient is not retaining versus incomplete bladder emptying Toilet scheduling and timed voiding Given patient is reporting unsensed urination unlikely urological medications for incontinence will be beneficial at this time. Psychiatry Plan 1. Continue same treatment, 2. Waiting for placement 04/08: Continue current regimen and plans Reason for contiued inpatient stay Substantial Risk for: inability to function Time Spent With Patient Time: Total time managing care of this patient today ____ minutes.
[2022-04-08 18:00] VITALS: BP 134/63; PULSE 61; RESP 18; TEMP 36.6; O2SAT 94
[2022-04-08] MEDS: Bacitracin Oint 14 GM TUBE 1 APPL TOPICAL (19:39)
[2022-04-08] MEDS: amLODIPine Besylate 10 MG TABLET PO (19:39)
[2022-04-08] MEDS: OLANZapine 5 MG TABLET PO (19:40)
[2022-04-09 06:00] VITALS: BP 122/68; PULSE 80; RESP 18; TEMP 36.6; O2SAT 96
--- NOTE | 2022-04-09 11:06 | P.PNPSI_ITS ---
Subjective Subjective Date of Service: 04/09/22 Reason For Visit: Mood Subjective Notes: Conditional Voluntary Interim History: Patient was seen and discussed in rounds today. Records and plans were reviewed. She is doing work fairly well and has been showing no signs of hostility today. She was exhibiting that yesterday. Eating and sleeping adequately. Her refused a.m. medications today. No changes were made today Medication Compliance: Intermittent Attending Groups: Intermittent Review of Systems Review of Systems Yes all other systems are reviewed and are negative Diagnostics Vital Signs (24Hr): Vital Signs - 24 hr 04/08/22 18:00 Temperature 98 F Pulse Rate 61 Respiratory Rate 18 Blood Pressure 134/63 Pulse Oximetry 94 Oxygen Delivery Method Room Air BMI result Body Mass Index 24.4 Labs 01/20/22 08:00 01/20/22 08:00 Imaging Radiology Impressions: ITS Impressions Chest CT 01/10/22 15:11 IMPRESSION: Bilateral small pulmonary nodules, left greater than right. Biapical pleural and parenchymal scarring. 1.1 x 1.4 cm heterogeneous or semisolid right apical nodule, question related to pleural and parenchymal scarring. 1.5 cm partially calcified left thyroid nodule. Based on patient age in size, this does not meet criteria for follow-up. Moderate coronary artery calcification. Fleischner guidelines were followed. Chest CT 04/01/22 14:44 IMPRESSION: *Unchanged semisolid 1.5 cm x 1.0 cm nodule within the apex of the right pulmonary lobe. Per the Fleischner Society 2017 revised guidelines, as clinically indicated recommend annual screening CT to demonstrate stability to demonstrate ultimate 5 year stability. *Unchanged small number of scattered solid pulmonary nodules ranging in size up to 6 mm diameter stable compared with 01/10/2022. *Moderate-marked diffuse coronary artery calcific atherosclerosis. *Partially visualized posttreatment related changes of the right breast. Medications Medications Current Medications Amlodipine Besylate (Amlodipine Besylate 10 Mg Tablet) 10 mg PO BEDTIME [facility]; Protocol Last Admin: 04/08/22 19:39 Dose: 10 mg Bacitracin (Bacitracin Oint 14 Gm Tube) 1 appl TOPICAL BID [facility]; Protocol Last Admin: 04/09/22 09:42 Dose: Not Given Hydrochlorothiazide (Hydrochlorothiazide 12.5 Mg Tablet) 12.5 mg PO DAILY [facility]; Protocol Last Admin: 04/09/22 09:42 Dose: Not Given Hydrocortisone (Hydrocortisone 1 % Cream 28.35 Gm Tube) 1 appl TOPICAL DAILY PRN PRN Reason: pruritic skin Olanzapine (Olanzapine 5 Mg Tablet) 5 mg PO BEDTIME [facility] Last Admin: 04/08/22 19:40 Dose: 5 mg Olanzapine (Olanzapine 10 Mg Vial) 5 mg IM BEDTIME PRN PRN Reason: refusal of PO Last Admin: 04/04/22 23:12 Dose: 5 mg Oxybutynin Chloride (Oxybutynin Chloride Er 5 Mg Tab.Er.24) 5 mg PO BID [facility] Last Admin: 04/09/22 09:42 Dose: Not Given Trazodone HCl (Trazodone Hcl 50 Mg Tablet) 50 mg PO BEDTIME PRN PRN Reason: insomnia Last Admin: 04/05/22 20:20 Dose: 50 mg Allergies Allergies Allergy/AdvReac Type Severity Reaction Status Date / Time codeine Allergy Unknown Unknown Verified 12/15/21 18:29 sulfadiazine Allergy Unknown Unknown Verified 12/15/21 18:29 Assessment & Plan Assessment & Plan (1) Urinary incontinence: Status: Acute Code(s): R32 - Unspecified urinary incontinence Plan If able to obtain urine for urinalysis and culture to further assess and evaluate for possible UTI Post void residuals to be obtained and tracked to be sure patient is not retaining versus incomplete bladder emptying Toilet scheduling and timed voiding Given patient is reporting unsensed urination unlikely urological medications for incontinence will be beneficial at this time. Psychiatry Plan 1. Continue same treatment, 2. Waiting for placement 04/08: Continue current regimen and plans 04/09: Continue current plans and regimen Reason for contiued inpatient stay Substantial Risk for: inability to function Time Spent With Patient Time: Total time managing care of this patient today ____ minutes.
[2022-04-09 18:00] VITALS: BP 128/65; PULSE 66; RESP 18; TEMP 35.7; O2SAT 95
[2022-04-09] MEDS: OLANZapine 5 MG TABLET PO (20:21)
[2022-04-09] MEDS: amLODIPine Besylate 10 MG TABLET PO (20:21)
[2022-04-10 06:00] VITALS: BP 134/62; PULSE 60; RESP 16; TEMP 36.6; O2SAT 99
[2022-04-10] MEDS: hydroCHLOROthiazide 12.5 MG TABLET PO (08:41)
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
[2022-04-10 18:00] VITALS: BP 165/74; PULSE 63; RESP 16; TEMP 36.4; O2SAT 94
[2022-04-10] MEDS: amLODIPine Besylate 10 MG TABLET PO (20:27)
[2022-04-10] MEDS: OLANZapine 5 MG TABLET PO (20:27)
[2022-04-10] MEDS: traZODone HCL 50 MG TABLET PO (20:27)
[2022-04-11 09:28] VITALS: BP 140/60; PULSE 55; RESP 16; O2SAT 95
--- NOTE | 2022-04-11 14:01 | P.PNPSI_ITS ---
Subjective Subjective Date of Service: 04/11/22 Reason For Visit: Mood Subjective Notes: Section 7 and Section 8 Interim History: The nursing staff reported the patient had been compliant with treatment. On interview the patient denies new symptoms, waiting for placement, remains confused unable to remember prior conversations Mental Status Exam Mental Status Exam Patient Appearance: Appropriate Patient Orientation: Person, Place and Situation Level of Consciousness: Awake Patient Behavior: Guarded and Passive Mood Description: Appropriate Affect Description: Constricted Patient Cognition Impaired: Yes Ability to Follow Directions: Good Speech Pattern: Clear Hallucinations: None Delusions: Paranoid Ideation Thought Process: Distracted and Slowed Thinking Thought Content: positive for [place] and positive for Circumstantial Judgement: Poor Diagnostics Vital Signs (24Hr): Vital Signs - 24 hr 04/10/22 18:00 04/11/22 09:28 Temperature 97.5 F Pulse Rate 63 55 Respiratory Rate 16 16 Blood Pressure 165/74 H 140/60 H Pulse Oximetry 94 95 Oxygen Delivery Method Room Air Room Air BMI result Body Mass Index 24.4 Labs 01/20/22 08:00 01/20/22 08:00 Imaging Radiology Impressions: ITS Impressions Chest CT 01/10/22 15:11 IMPRESSION: Bilateral small pulmonary nodules, left greater than right. Biapical pleural and parenchymal scarring. 1.1 x 1.4 cm heterogeneous or semisolid right apical nodule, question related to pleural and parenchymal scarring. 1.5 cm partially calcified left thyroid nodule. Based on patient age in size, this does not meet criteria for follow-up. Moderate coronary artery calcification. Fleischner guidelines were followed. Chest CT 04/01/22 14:44 IMPRESSION: *Unchanged semisolid 1.5 cm x 1.0 cm nodule within the apex of the right pulmonary lobe. Per the Fleischner Society 2017 revised guidelines, as clinically indicated recommend annual screening CT to demonstrate stability to demonstrate ultimate 5 year stability. *Unchanged small number of scattered solid pulmonary nodules ranging in size up to 6 mm diameter stable compared with 01/10/2022. *Moderate-marked diffuse coronary artery calcific atherosclerosis. *Partially visualized posttreatment related changes of the right breast. Medications Medications Current Medications Amlodipine Besylate (Amlodipine Besylate 10 Mg Tablet) 10 mg PO BEDTIME [facility]; Protocol Last Admin: 04/10/22 20:27 Dose: 10 mg Bacitracin (Bacitracin Oint 14 Gm Tube) 1 appl TOPICAL BID [facility]; Protocol Last Admin: 04/11/22 09:38 Dose: Not Given Hydrochlorothiazide (Hydrochlorothiazide 12.5 Mg Tablet) 12.5 mg PO DAILY [facility]; Protocol Last Admin: 04/11/22 09:38 Dose: Not Given Hydrocortisone (Hydrocortisone 1 % Cream 28.35 Gm Tube) 1 appl TOPICAL DAILY PRN PRN Reason: pruritic skin Olanzapine (Olanzapine 5 Mg Tablet) 5 mg PO BEDTIME [facility] Last Admin: 04/10/22 20:27 Dose: 5 mg Olanzapine (Olanzapine 10 Mg Vial) 5 mg IM BEDTIME PRN PRN Reason: refusal of PO Last Admin: 04/04/22 23:12 Dose: 5 mg Trazodone HCl (Trazodone Hcl 50 Mg Tablet) 50 mg PO BEDTIME PRN PRN Reason: insomnia Last Admin: 04/10/22 20:27 Dose: 50 mg Allergies Allergies Allergy/AdvReac Type Severity Reaction Status Date / Time codeine Allergy Unknown Unknown Verified 12/15/21 18:29 sulfadiazine Allergy Unknown Unknown Verified 12/15/21 18:29 Assessment & Plan Assessment & Plan (1) Urinary incontinence: Status: Acute Code(s): R32 - Unspecified urinary incontinence Plan If able to obtain urine for urinalysis and culture to further assess and evaluate for possible UTI Post void residuals to be obtained and tracked to be sure patient is not retaining versus incomplete bladder emptying Toilet scheduling and timed voiding Given patient is reporting unsensed urination unlikely urological medications for incontinence will be beneficial at this time. Psychiatry Plan 1. Continue same treatment, 2. Waiting for placement Reason for contiued inpatient stay Substantial Risk for: inability to function, rapid decompensation and med/psych decompensation Time Spent With Patient Time: Total time managing care of this patient today __20__ minutes.
[2022-04-11 18:00] VITALS: BP 148/67; PULSE 66; TEMP 36.3; O2SAT 95
[2022-04-11] MEDS: amLODIPine Besylate 10 MG TABLET PO (20:17)
[2022-04-11] MEDS: traZODone HCL 50 MG TABLET PO (20:21)
[2022-04-11] MEDS: OLANZapine 5 MG TABLET PO (20:21)
[2022-04-11] MEDS: Bacitracin Oint 14 GM TUBE 1 APPL TOPICAL (20:35)
[2022-04-12] MEDS: hydroCHLOROthiazide 12.5 MG TABLET PO (08:22)
--- NOTE | 2022-04-12 14:16 | HO.PSYCHPN ---
Subjective Subjective Date of Service: 04/12/22 Reason For Visit: Mood Subjective Notes: Conditional Voluntary Interim History: The nursing staff reported the patient had demand compliant she was angry in the morning. On interview the patient denies new symptoms waiting for placement. Mental Status Exam Mental Status Exam Patient Appearance: Appropriate Patient Orientation: Person and Situation Level of Consciousness: Awake and Appropriate Patient Behavior: Guarded and Passive Mood Description: Calm Affect Description: Constricted Patient Cognition Impaired: Yes Ability to Follow Directions: Good Speech Pattern: Clear Hallucinations: None Delusions: Not Present Thought Process: Distracted and Slowed Thinking Thought Content: positive for [place] Judgement: Poor Diagnostics Vital Signs (24Hr): Vital Signs - 24 hr 04/11/22 18:00 Temperature 97.3 F Pulse Rate 66 Blood Pressure 148/67 H Pulse Oximetry 95 BMI result Body Mass Index 24.4 Labs 01/20/22 08:00 01/20/22 08:00 Imaging Radiology Impressions: ITS Impressions Chest CT 01/10/22 15:11 IMPRESSION: Bilateral small pulmonary nodules, left greater than right. Biapical pleural and parenchymal scarring. 1.1 x 1.4 cm heterogeneous or semisolid right apical nodule, question related to pleural and parenchymal scarring. 1.5 cm partially calcified left thyroid nodule. Based on patient age in size, this does not meet criteria for follow-up. Moderate coronary artery calcification. Fleischner guidelines were followed. Chest CT 04/01/22 14:44 IMPRESSION: *Unchanged semisolid 1.5 cm x 1.0 cm nodule within the apex of the right pulmonary lobe. Per the Fleischner Society 2017 revised guidelines, as clinically indicated recommend annual screening CT to demonstrate stability to demonstrate ultimate 5 year stability. *Unchanged small number of scattered solid pulmonary nodules ranging in size up to 6 mm diameter stable compared with 01/10/2022. *Moderate-marked diffuse coronary artery calcific atherosclerosis. *Partially visualized posttreatment related changes of the right breast. Medications Medications Current Medications Amlodipine Besylate (Amlodipine Besylate 10 Mg Tablet) 10 mg PO BEDTIME [facility]; Protocol Last Admin: 04/11/22 20:17 Dose: 10 mg Bacitracin (Bacitracin Oint 14 Gm Tube) 1 appl TOPICAL BID [facility]; Protocol Last Admin: 04/12/22 12:37 Dose: Not Given Hydrochlorothiazide (Hydrochlorothiazide 12.5 Mg Tablet) 12.5 mg PO DAILY [facility]; Protocol Last Admin: 04/12/22 08:22 Dose: 12.5 mg Hydrocortisone (Hydrocortisone 1 % Cream 28.35 Gm Tube) 1 appl TOPICAL DAILY PRN PRN Reason: pruritic skin Olanzapine (Olanzapine 5 Mg Tablet) 5 mg PO BEDTIME [facility] Last Admin: 04/11/22 20:21 Dose: 5 mg Olanzapine (Olanzapine 10 Mg Vial) 5 mg IM BEDTIME PRN PRN Reason: refusal of PO Last Admin: 04/04/22 23:12 Dose: 5 mg Trazodone HCl (Trazodone Hcl 50 Mg Tablet) 50 mg PO BEDTIME PRN PRN Reason: insomnia Last Admin: 04/11/22 20:21 Dose: 50 mg Allergies Allergies Allergy/AdvReac Type Severity Reaction Status Date / Time codeine Allergy Unknown Unknown Verified 12/15/21 18:29 sulfadiazine Allergy Unknown Unknown Verified 12/15/21 18:29 Assessment & Plan Assessment & Plan (1) Urinary incontinence: Status: Acute Code(s): R32 - Unspecified urinary incontinence Plan If able to obtain urine for urinalysis and culture to further assess and evaluate for possible UTI Post void residuals to be obtained and tracked to be sure patient is not retaining versus incomplete bladder emptying Toilet scheduling and timed voiding Given patient is reporting unsensed urination unlikely urological medications for incontinence will be beneficial at this time. Psychiatry Plan 1. Continue same treatment, 2. Waiting for placement Reason for contiued inpatient stay Substantial Risk for: inability to function, rapid decompensation and med/psych decompensation Time Spent With Patient Time: Total time managing care of this patient today __20__ minutes.
[2022-04-12 18:00] VITALS: BP 138/71; PULSE 60; RESP 17; TEMP 36.6; O2SAT 94
[2022-04-12] MEDS: Bacitracin Oint 14 GM TUBE 1 APPL TOPICAL (19:48)
[2022-04-12] MEDS: amLODIPine Besylate 10 MG TABLET PO (19:48)
[2022-04-12] MEDS: OLANZapine 5 MG TABLET PO (19:49)
[2022-04-12] MEDS: traZODone HCL 50 MG TABLET PO (19:49)
[2022-04-13 07:30] VITALS: BP 132/61; PULSE 66; RESP 15; TEMP 36.6; O2SAT 96
[2022-04-13] MEDS: hydroCHLOROthiazide 12.5 MG TABLET PO (09:39)
--- NOTE | 2022-04-13 13:37 | P.PNPSI_ITS ---
Subjective Subjective Date of Service: 04/13/22 Reason For Visit: Mood Subjective Notes: Conditional Voluntary Interim History: The nursing staff reported the patient has been compliant with treatment no behavioral disturbances. The social insurance adviser reported that she was referred to [facility]. On interview the patient is aware that her urinary incontinence needs to be surgically repaired but she ask if we can start back oxybutynin. Mental Status Exam Mental Status Exam Patient Appearance: Appropriate Patient Orientation: Person and Situation Level of Consciousness: Awake and Appropriate Patient Behavior: Guarded and Passive Mood Description: Withdrawn Affect Description: Constricted Patient Cognition Impaired: Yes Ability to Follow Directions: Good Speech Pattern: Clear Hallucinations: None Delusions: Paranoid Ideation Thought Process: Distracted Thought Content: positive for [place] and positive for [place]umstantial Judgement: Fair Diagnostics Vital Signs (24Hr): Vital Signs - 24 hr 04/12/22 18:00 04/13/22 07:30 Temperature 97.8 F 98 F Pulse Rate 60 66 Respiratory Rate 17 15 Blood Pressure 138/71 132/61 Pulse Oximetry 94 96 Oxygen Delivery Method Room Air Room Air BMI result Body Mass Index 24.4 Labs 01/20/22 08:00 01/20/22 08:00 Imaging Radiology Impressions: ITS Impressions Chest CT 01/10/22 15:11 IMPRESSION: Bilateral small pulmonary nodules, left greater than right. Biapical pleural and parenchymal scarring. 1.1 x 1.4 cm heterogeneous or semisolid right apical nodule, question related to pleural and parenchymal scarring. 1.5 cm partially calcified left thyroid nodule. Based on patient age in size, this does not meet criteria for follow-up. Moderate coronary artery calcification. Fleischner guidelines were followed. Chest CT 04/01/22 14:44 IMPRESSION: *Unchanged semisolid 1.5 cm x 1.0 cm nodule within the apex of the right pulmonary lobe. Per the Fleischner Society 2017 revised guidelines, as clinically indicated recommend annual screening CT to demonstrate stability to demonstrate ultimate 5 year stability. *Unchanged small number of scattered solid pulmonary nodules ranging in size up to 6 mm diameter stable compared with 01/10/2022. *Moderate-marked diffuse coronary artery calcific atherosclerosis. *Partially visualized posttreatment related changes of the right breast. Medications Medications Current Medications Amlodipine Besylate (Amlodipine Besylate 10 Mg Tablet) 10 mg PO BEDTIME [facility]; Protocol Last Admin: 04/12/22 19:48 Dose: 10 mg Bacitracin (Bacitracin Oint 14 Gm Tube) 1 appl TOPICAL BID [facility]O; Protocol Last Admin: 04/13/22 09:40 Dose: Not Given Hydrochlorothiazide (Hydrochlorothiazide 12.5 Mg Tablet) 12.5 mg PO DAILY TIMOTEO; Protocol Last Admin: 04/13/22 09:39 Dose: 12.5 mg Hydrocortisone (Hydrocortisone 1 % Cream 28.35 Gm Tube) 1 appl TOPICAL DAILY PRN PRN Reason: pruritic skin Olanzapine (Olanzapine 5 Mg Tablet) 5 mg PO BEDTIME [facility] Last Admin: 04/12/22 19:49 Dose: 5 mg Olanzapine (Olanzapine 10 Mg Vial) 5 mg IM BEDTIME PRN PRN Reason: refusal of PO Last Admin: 04/04/22 23:12 Dose: 5 mg Trazodone HCl (Trazodone Hcl 50 Mg Tablet) 50 mg PO BEDTIME PRN PRN Reason: insomnia Last Admin: 04/12/22 19:49 Dose: 50 mg Allergies Allergies Allergy/AdvReac Type Severity Reaction Status Date / Time codeine Allergy Unknown Unknown Verified 12/15/21 18:29 sulfadiazine Allergy Unknown Unknown Verified 12/15/21 18:29 Assessment & Plan Assessment & Plan (1) Urinary incontinence: Status: Acute Code(s): R32 - Unspecified urinary incontinence Plan If able to obtain urine for urinalysis and culture to further assess and evaluate for possible UTI Post void residuals to be obtained and tracked to be sure patient is not retaining versus incomplete bladder emptying Toilet scheduling and timed voiding Given patient is reporting unsensed urination unlikely urological medications for incontinence will be beneficial at this time. Psychiatry Plan 1. Continue same treatment, 2. Waiting for placement Reason for contiued inpatient stay Substantial Risk for: inability to function, rapid decompensation and med/psych decompensation Time Spent With Patient Time: Total time managing care of this patient today __20__ minutes.
[2022-04-13 18:00] VITALS: BP 156/67; PULSE 61; RESP 18; TEMP 36.4; O2SAT 94
[2022-04-13] MEDS: amLODIPine Besylate 10 MG TABLET PO (20:07)
[2022-04-13] MEDS: OLANZapine 5 MG TABLET PO (20:08)
[2022-04-13] MEDS: Bacitracin Oint 14 GM TUBE 1 APPL TOPICAL (20:08)
--- NOTE | 2022-04-14 13:35 | HO.PSYCHPN ---
Subjective Subjective Date of Service: 04/14/22 Reason For Visit: Mood Subjective Notes: Conditional Voluntary Interim History: The nursing staff reported the patient slept 8 hours, she was compliant with treatment. The staff reported that she was pleasant in the morning. On interview the patient reported that she is still having incontinence of bladder and now feces. Mental Status Exam Mental Status Exam Patient Appearance: Appropriate Patient Orientation: Person and Situation Level of Consciousness: Awake and Appropriate Patient Behavior: Guarded and Passive Mood Description: Constricted Affect Description: Labile Patient Cognition Impaired: Yes Ability to Follow Directions: Good Speech Pattern: Clear Hallucinations: None Delusions: Not Present Thought Process: Distracted and Evasive Thought Content: positive for [place] and positive for Circumstantial Judgement: Fair Diagnostics Vital Signs (24Hr): Vital Signs - 24 hr 04/13/22 18:00 Temperature 97.5 F Pulse Rate 61 Respiratory Rate 18 Blood Pressure 156/67 H Pulse Oximetry 94 Oxygen Delivery Method Room Air BMI result Body Mass Index 24.4 Labs 01/20/22 08:00 01/20/22 08:00 Imaging Radiology Impressions: ITS Impressions Chest CT 01/10/22 15:11 IMPRESSION: Bilateral small pulmonary nodules, left greater than right. Biapical pleural and parenchymal scarring. 1.1 x 1.4 cm heterogeneous or semisolid right apical nodule, question related to pleural and parenchymal scarring. 1.5 cm partially calcified left thyroid nodule. Based on patient age in size, this does not meet criteria for follow-up. Moderate coronary artery calcification. Fleischner guidelines were followed. Chest CT 04/01/22 14:44 IMPRESSION: *Unchanged semisolid 1.5 cm x 1.0 cm nodule within the apex of the right pulmonary lobe. Per the Fleischner Society 2017 revised guidelines, as clinically indicated recommend annual screening CT to demonstrate stability to demonstrate ultimate 5 year stability. *Unchanged small number of scattered solid pulmonary nodules ranging in size up to 6 mm diameter stable compared with 01/10/2022. *Moderate-marked diffuse coronary artery calcific atherosclerosis. *Partially visualized posttreatment related changes of the right breast. Medications Medications Current Medications Amlodipine Besylate (Amlodipine Besylate 10 Mg Tablet) 10 mg PO BEDTIME [facility]; Protocol Last Admin: 04/13/22 20:07 Dose: 10 mg Bacitracin (Bacitracin Oint 14 Gm Tube) 1 appl TOPICAL BID [facility]; Protocol Last Admin: 04/14/22 11:16 Dose: Not Given Hydrochlorothiazide (Hydrochlorothiazide 12.5 Mg Tablet) 12.5 mg PO DAILY [facility]; Protocol Last Admin: 04/14/22 11:16 Dose: Not Given Hydrocortisone (Hydrocortisone 1 % Cream 28.35 Gm Tube) 1 appl TOPICAL DAILY PRN PRN Reason: pruritic skin Olanzapine (Olanzapine 5 Mg Tablet) 5 mg PO BEDTIME [facility]OTEO Last Admin: 04/13/22 20:08 Dose: 5 mg Olanzapine (Olanzapine 10 Mg Vial) 5 mg IM BEDTIME PRN PRN Reason: refusal of PO Last Admin: 04/04/22 23:12 Dose: 5 mg Oxybutynin Chloride (Oxybutynin Chloride Er 5 Mg Tab.Er.24) 10 mg PO DAILY [facility] Trazodone HCl (Trazodone Hcl 50 Mg Tablet) 50 mg PO BEDTIME PRN PRN Reason: insomnia Last Admin: 04/12/22 19:49 Dose: 50 mg Allergies Allergies Allergy/AdvReac Type Severity Reaction Status Date / Time codeine Allergy Unknown Unknown Verified 12/15/21 18:29 sulfadiazine Allergy Unknown Unknown Verified 12/15/21 18:29 Assessment & Plan Assessment & Plan (1) Urinary incontinence: Status: Acute Code(s): R32 - Unspecified urinary incontinence Plan If able to obtain urine for urinalysis and culture to further assess and evaluate for possible UTI Post void residuals to be obtained and tracked to be sure patient is not retaining versus incomplete bladder emptying Toilet scheduling and timed voiding Given patient is reporting unsensed urination unlikely urological medications for incontinence will be beneficial at this time. Psychiatry Plan 1. Continue same treatment, 2. Waiting for placement Reason for contiued inpatient stay Substantial Risk for: inability to function, rapid decompensation and med/psych decompensation Time Spent With Patient Time: Total time managing care of this patient today ___20_ minutes.
[2022-04-14 18:00] VITALS: BP 174/73; PULSE 61; RESP 16; TEMP 36.4; O2SAT 95
[2022-04-14] MEDS: amLODIPine Besylate 10 MG TABLET PO (19:36)
[2022-04-14] MEDS: traZODone HCL 50 MG TABLET PO (19:36)
[2022-04-14] MEDS: OLANZapine 5 MG TABLET PO (19:36)
[2022-04-15 06:00] VITALS: BP 130/65; PULSE 62; RESP 14; TEMP 35.8; O2SAT 94
[2022-04-15] MEDS: hydroCHLOROthiazide 12.5 MG TABLET PO (08:47)
--- NOTE | 2022-04-15 10:03 | HO.PSYCHPN ---
Subjective Subjective Date of Service: 04/15/22 Reason For Visit: Mood Subjective Notes: Conditional Voluntary Interim History: The nursing staff reported that she had been irritable at times but redirectable, fully compliant with treatment. On interview the patient complains of urinary incontinence and explained her yesterday that her only solution is surgical the medications will not work but she cannot remember the previous conversations. Waiting for placement Mental Status Exam Mental Status Exam Patient Appearance: Well Grooomed Patient Orientation: Person and Situation Level of Consciousness: Awake and Appropriate Patient Behavior: Guarded and Passive Mood Description: Withdrawn Affect Description: Labile Patient Cognition Impaired: Yes Ability to Follow Directions: Good Speech Pattern: Clear Hallucinations: None Delusions: Paranoid Ideation Thought Process: Distracted and Slowed Thinking Thought Content: positive for [place], positive for [place]sever[place] and positive for Poverty of Content Judgement: Poor Diagnostics Vital Signs (24Hr): Vital Signs - 24 hr 04/14/22 18:00 04/15/22 06:00 Temperature 97.6 F 96.5 F L Pulse Rate 61 62 Respiratory Rate 16 14 Blood Pressure 174/73 H 130/65 Pulse Oximetry 95 94 Oxygen Delivery Method Room Air Room Air BMI result Body Mass Index 24.4 Labs 01/20/22 08:00 01/20/22 08:00 Imaging Radiology Impressions: ITS Impressions Chest CT 01/10/22 15:11 IMPRESSION: Bilateral small pulmonary nodules, left greater than right. Biapical pleural and parenchymal scarring. 1.1 x 1.4 cm heterogeneous or semisolid right apical nodule, question related to pleural and parenchymal scarring. 1.5 cm partially calcified left thyroid nodule. Based on patient age in size, this does not meet criteria for follow-up. Moderate coronary artery calcification. Fleischner guidelines were followed. Chest CT 04/01/22 14:44 IMPRESSION: *Unchanged semisolid 1.5 cm x 1.0 cm nodule within the apex of the right pulmonary lobe. Per the Fleischner Society 2017 revised guidelines, as clinically indicated recommend annual screening CT to demonstrate stability to demonstrate ultimate 5 year stability. *Unchanged small number of scattered solid pulmonary nodules ranging in size up to 6 mm diameter stable compared with 01/10/2022. *Moderate-marked diffuse coronary artery calcific atherosclerosis. *Partially visualized posttreatment related changes of the right breast. Medications Medications Current Medications Amlodipine Besylate (Amlodipine Besylate 10 Mg Tablet) 10 mg PO BEDTIME TIMOTEO; Protocol Last Admin: 04/14/22 19:36 Dose: 10 mg Bacitracin (Bacitracin Oint 14 Gm Tube) 1 appl TOPICAL BID TIMOTEO; Protocol Last Admin: 04/15/22 03:47 Dose: Not Given Hydrochlorothiazide (Hydrochlorothiazide 12.5 Mg Tablet) 12.5 mg PO DAILY TIMOTEO; Protocol Last Admin: 04/15/22 08:47 Dose: 12.5 mg Hydrocortisone (Hydrocortisone 1 % Cream 28.35 Gm Tube) 1 appl TOPICAL DAILY PRN PRN Reason: pruritic skin Olanzapine (Olanzapine 5 Mg Tablet) 5 mg PO BEDTIME TIMOTEO Last Admin: 04/14/22 19:36 Dose: 5 mg Olanzapine (Olanzapine 10 Mg Vial) 5 mg IM BEDTIME PRN PRN Reason: refusal of PO Last Admin: 04/04/22 23:12 Dose: 5 mg Oxybutynin Chloride (Oxybutynin Chloride Er 5 Mg Tab.Er.24) 10 mg PO DAILY TIMOTEO Last Admin: 04/15/22 08:47 Dose: 10 mg Trazodone HCl (Trazodone Hcl 50 Mg Tablet) 50 mg PO BEDTIME PRN PRN Reason: insomnia Last Admin: 04/14/22 19:36 Dose: 50 mg Allergies Allergies Allergy/AdvReac Type Severity Reaction Status Date / Time codeine Allergy Unknown Unknown Verified 12/15/21 18:29 sulfadiazine Allergy Unknown Unknown Verified 12/15/21 18:29 Assessment & Plan Assessment & Plan (1) Urinary incontinence: Status: Acute Code(s): R32 - Unspecified urinary incontinence Plan If able to obtain urine for urinalysis and culture to further assess and evaluate for possible UTI Post void residuals to be obtained and tracked to be sure patient is not retaining versus incomplete bladder emptying Toilet scheduling and timed voiding Given patient is reporting unsensed urination unlikely urological medications for incontinence will be beneficial at this time. Psychiatry Plan 1. Continue same treatment, 2. Waiting for placement Reason for contiued inpatient stay Substantial Risk for: inability to function, rapid decompensation and med/psych decompensation Time Spent With Patient Time: Total time managing care of this patient today ___20_ minutes.
[2022-04-15 18:00] VITALS: BP 145/76; PULSE 62; RESP 17; TEMP 36.7; O2SAT 96
[2022-04-15] MEDS: amLODIPine Besylate 10 MG TABLET PO (19:34)
[2022-04-15] MEDS: traZODone HCL 50 MG TABLET PO (19:34)
[2022-04-15] MEDS: OLANZapine 5 MG TABLET PO (19:34)
[2022-04-16 08:37] VITALS: BP 102/61; PULSE 68; RESP 16; TEMP 36.5; O2SAT 96
--- NOTE | 2022-04-16 10:00 | HO.PSYCHPN ---
Subjective Subjective Date of Service: 04/16/22 Reason For Visit: Mood Subjective Notes: Section 7 and Section 8 Interim History: The nursing staff reported the patient was compliant with medications she took trazodone last night. On interview the patient looks pleasantly confused, unable to remember the conversations before regarding his urinary incontinence. Waiting for placement. Mental Status Exam Mental Status Exam Patient Appearance: Appropriate Patient Orientation: Person Level of Consciousness: Appropriate Patient Behavior: Guarded and Passive Mood Description: Withdrawn Affect Description: Constricted Patient Cognition Impaired: Yes Ability to Follow Directions: Good Speech Pattern: Clear Hallucinations: None Delusions: Paranoid Ideation Thought Process: Illogical, Distracted and Slowed Thinking Thought Content: positive for [place] and positive for Circumstantial Judgement: Fair Diagnostics Vital Signs (24Hr): Vital Signs - 24 hr 04/15/22 18:00 04/16/22 08:37 Temperature 98.1 F 97.7 F Pulse Rate 62 68 Respiratory Rate 17 16 Blood Pressure 145/76 H 102/61 Pulse Oximetry 96 96 Oxygen Delivery Method Room Air Room Air BMI result Body Mass Index 24.4 Labs 01/20/22 08:00 01/20/22 08:00 Imaging Radiology Impressions: ITS Impressions Chest CT 01/10/22 15:11 IMPRESSION: Bilateral small pulmonary nodules, left greater than right. Biapical pleural and parenchymal scarring. 1.1 x 1.4 cm heterogeneous or semisolid right apical nodule, question related to pleural and parenchymal scarring. 1.5 cm partially calcified left thyroid nodule. Based on patient age in size, this does not meet criteria for follow-up. Moderate coronary artery calcification. Fleischner guidelines were followed. Chest CT 04/01/22 14:44 IMPRESSION: *Unchanged semisolid 1.5 cm x 1.0 cm nodule within the apex of the right pulmonary lobe. Per the Fleischner Society 2017 revised guidelines, as clinically indicated recommend annual screening CT to demonstrate stability to demonstrate ultimate 5 year stability. *Unchanged small number of scattered solid pulmonary nodules ranging in size up to 6 mm diameter stable compared with 01/10/2022. *Moderate-marked diffuse coronary artery calcific atherosclerosis. *Partially visualized posttreatment related changes of the right breast. Medications Medications Current Medications Amlodipine Besylate (Amlodipine Besylate 10 Mg Tablet) 10 mg PO BEDTIME TIMOTEO; Protocol Last Admin: 04/15/22 19:34 Dose: 10 mg Bacitracin (Bacitracin Oint 14 Gm Tube) 1 appl TOPICAL BID TIMOTEO; Protocol Last Admin: 04/15/22 19:53 Dose: Not Given Hydrochlorothiazide (Hydrochlorothiazide 12.5 Mg Tablet) 12.5 mg PO DAILY ITMOTEO; Protocol Last Admin: 04/15/22 08:47 Dose: 12.5 mg Hydrocortisone (Hydrocortisone 1 % Cream 28.35 Gm Tube) 1 appl TOPICAL DAILY PRN PRN Reason: pruritic skin Olanzapine (Olanzapine 5 Mg Tablet) 5 mg PO BEDTIME TIMOTEO Last Admin: 04/15/22 19:34 Dose: 5 mg Olanzapine (Olanzapine 10 Mg Vial) 5 mg IM BEDTIME PRN PRN Reason: refusal of PO Last Admin: 04/04/22 23:12 Dose: 5 mg Oxybutynin Chloride (Oxybutynin Chloride Er 5 Mg Tab.Er.24) 10 mg PO DAILY TIMOTEO Last Admin: 04/15/22 08:47 Dose: 10 mg Trazodone HCl (Trazodone Hcl 50 Mg Tablet) 50 mg PO BEDTIME PRN PRN Reason: insomnia Last Admin: 04/15/22 19:34 Dose: 50 mg Allergies Allergies Allergy/AdvReac Type Severity Reaction Status Date / Time codeine Allergy Unknown Unknown Verified 12/15/21 18:29 sulfadiazine Allergy Unknown Unknown Verified 12/15/21 18:29 Assessment & Plan Assessment & Plan (1) Urinary incontinence: Status: Acute Code(s): R32 - Unspecified urinary incontinence Plan If able to obtain urine for urinalysis and culture to further assess and evaluate for possible UTI Post void residuals to be obtained and tracked to be sure patient is not retaining versus incomplete bladder emptying Toilet scheduling and timed voiding Given patient is reporting unsensed urination unlikely urological medications for incontinence will be beneficial at this time. Psychiatry Plan 1. Continue same treatment, 2. Waiting for placement Reason for contiued inpatient stay Substantial Risk for: inability to function, rapid decompensation and med/psych decompensation Time Spent With Patient Time: Total time managing care of this patient today __20__ minutes.
[2022-04-16] MEDS: hydroCHLOROthiazide 12.5 MG TABLET PO (11:32)
[2022-04-16 18:00] VITALS: BP 156/80; PULSE 80; TEMP 36.7; O2SAT 100
[2022-04-16] MEDS: traZODone HCL 50 MG TABLET PO (20:16)
[2022-04-16] MEDS: OLANZapine 5 MG TABLET PO (20:17)
[2022-04-16] MEDS: amLODIPine Besylate 10 MG TABLET PO (20:21)
[2022-04-17] MEDS: Bacitracin Oint 14 GM TUBE 1 APPL TOPICAL (01:56)
--- NOTE | 2022-04-17 06:59 | P.PNPSI_ITS ---
Subjective Subjective Date of Service: 04/17/22 Reason For Visit: Mood Subjective Notes: Section 7 and Section 8 Interim History: The nursing staff reported the patient took her Zyprexa as per court order. She remains irritable at times and she does not like to need help for her hygiene. On interview the patient reported urinary incontinence I explained her that it is a chronic condition that we cannot help her without surgery and she is refusing at this moment. Waiting for placement. Mental Status Exam Mental Status Exam Patient Appearance: Appropriate Patient Orientation: Person and Situation Level of Consciousness: Awake Patient Behavior: Guarded and Passive Mood Description: Calm Affect Description: Labile Patient Cognition Impaired: Yes Ability to Follow Directions: Fair Speech Pattern: Clear Hallucinations: None Delusions: Paranoid Ideation Thought Process: Distracted and Slowed Thinking Thought Content: positive for [place] and positive for Circumstantial Judgement: Fair Diagnostics Vital Signs (24Hr): Vital Signs - 24 hr 04/16/22 08:37 04/16/22 18:00 Temperature 97.7 F 98.1 F Pulse Rate 68 80 Respiratory Rate 16 Blood Pressure 102/61 156/80 H Pulse Oximetry 96 100 Oxygen Delivery Method Room Air Room Air BMI result Body Mass Index 24.4 Labs 01/20/22 08:00 01/20/22 08:00 Imaging Radiology Impressions: ITS Impressions Chest CT 01/10/22 15:11 IMPRESSION: Bilateral small pulmonary nodules, left greater than right. Biapical pleural and parenchymal scarring. 1.1 x 1.4 cm heterogeneous or semisolid right apical nodule, question related to pleural and parenchymal scarring. 1.5 cm partially calcified left thyroid nodule. Based on patient age in size, this does not meet criteria for follow-up. Moderate coronary artery calcification. Fleischner guidelines were followed. Chest CT 04/01/22 14:44 IMPRESSION: *Unchanged semisolid 1.5 cm x 1.0 cm nodule within the apex of the right pulmonary lobe. Per the Fleischner Society 2017 revised guidelines, as clinically indicated recommend annual screening CT to demonstrate stability to demonstrate ultimate 5 year stability. *Unchanged small number of scattered solid pulmonary nodules ranging in size up to 6 mm diameter stable compared with 01/10/2022. *Moderate-marked diffuse coronary artery calcific atherosclerosis. *Partially visualized posttreatment related changes of the right breast. Medications Medications Current Medications Amlodipine Besylate (Amlodipine Besylate 10 Mg Tablet) 10 mg PO BEDTIME TIMOTEO; Protocol Last Admin: 04/16/22 20:21 Dose: 10 mg Bacitracin (Bacitracin Oint 14 Gm Tube) 1 appl TOPICAL BID TIMOTEO; Protocol Last Admin: 04/17/22 01:56 Dose: 1 appl Hydrochlorothiazide (Hydrochlorothiazide 12.5 Mg Tablet) 12.5 mg PO DAILY TIMOTEO; Protocol Last Admin: 04/16/22 11:32 Dose: 12.5 mg Hydrocortisone (Hydrocortisone 1 % Cream 28.35 Gm Tube) 1 appl TOPICAL DAILY PRN PRN Reason: pruritic skin Olanzapine (Olanzapine 5 Mg Tablet) 5 mg PO BEDTIME TIMOTEO Last Admin: 04/16/22 20:17 Dose: 5 mg Olanzapine (Olanzapine 10 Mg Vial) 5 mg IM BEDTIME PRN PRN Reason: refusal of PO Last Admin: 04/04/22 23:12 Dose: 5 mg Oxybutynin Chloride (Oxybutynin Chloride Er 5 Mg Tab.Er.24) 10 mg PO DAILY TIMOTEO Last Admin: 04/16/22 11:32 Dose: 10 mg Trazodone HCl (Trazodone Hcl 50 Mg Tablet) 50 mg PO BEDTIME PRN PRN Reason: insomnia Last Admin: 04/16/22 20:16 Dose: 50 mg Allergies Allergies Allergy/AdvReac Type Severity Reaction Status Date / Time codeine Allergy Unknown Unknown Verified 12/15/21 18:29 sulfadiazine Allergy Unknown Unknown Verified 12/15/21 18:29 Assessment & Plan Assessment & Plan (1) Urinary incontinence: Status: Acute Code(s): R32 - Unspecified urinary incontinence Plan If able to obtain urine for urinalysis and culture to further assess and evaluate for possible UTI Post void residuals to be obtained and tracked to be sure patient is not retaining versus incomplete bladder emptying Toilet scheduling and timed voiding Given patient is reporting unsensed urination unlikely urological medications for incontinence will be beneficial at this time. Psychiatry Plan 1. Continue same treatment, 2. Waiting for placement Reason for contiued inpatient stay Substantial Risk for: inability to function, rapid decompensation and med/psych decompensation Time Spent With Patient Time: Total time managing care of this patient today _20___ minutes.
[2022-04-17 08:30] VITALS: BP 145/68; PULSE 88; RESP 16; TEMP 36.3; O2SAT 95
[2022-04-17] MEDS: hydroCHLOROthiazide 12.5 MG TABLET PO (09:31)
[2022-04-17 18:00] VITALS: BP 141/71; PULSE 65; RESP 18; TEMP 36.3; O2SAT 95
[2022-04-17] MEDS: traZODone HCL 50 MG TABLET PO (19:41)
[2022-04-17] MEDS: OLANZapine 5 MG TABLET PO (19:41)
[2022-04-17] MEDS: amLODIPine Besylate 10 MG TABLET PO (19:41)
[2022-04-17 20:00] VITALS: BP 172/100; PULSE 98; RESP 18; O2SAT 98
--- NOTE | 2022-04-18 00:39 | PC.NURSE ---
Post fall CT order PT is refusing to go to CT I dont need a CT scan becoming agitated will try to obtain in AM also refusing Ativan 1mg and vital signs Will continue to monitor
--- NOTE | 2022-04-18 08:17 | P.PNPSI_ITS ---
Subjective Subjective Date of Service: 04/18/22 Reason For Visit: Mood Subjective Notes: Section 7 and Section 8 Interim History: The nursing staff reported that yesterday she fell. She refused a CT scan yesterday. On interview the patient denies new symptoms, waiting for placement. Mental Status Exam Mental Status Exam Patient Appearance: Appropriate Patient Orientation: Person and Situation Level of Consciousness: Awake Patient Behavior: Guarded and Passive Mood Description: Withdrawn Affect Description: Labile Patient Cognition Impaired: Yes Ability to Follow Directions: Fair Speech Pattern: Clear Hallucinations: None Delusions: Paranoid Ideation Thought Process: Distracted and Evasive Thought Content: positive for [place], positive for [place] and positive for Poverty of Content Judgement: Poor Diagnostics Vital Signs (24Hr): Vital Signs - 24 hr 04/17/22 08:30 04/17/22 18:00 04/17/22 20:00 Temperature 97.4 F 97.4 F Pulse Rate 88 65 98 Respiratory Rate 16 18 18 Blood Pressure 145/68 H 141/71 H 172/100 H Pulse Oximetry 95 95 98 Oxygen Delivery Method Room Air Room Air 04/17/22 20:00 Temperature Pulse Rate 98 Respiratory Rate 18 Blood Pressure 172/100 H Pulse Oximetry Oxygen Delivery Method BMI result Body Mass Index 24.4 Labs 01/20/22 08:00 01/20/22 08:00 Imaging Radiology Impressions: ITS Impressions Chest CT 01/10/22 15:11 IMPRESSION: Bilateral small pulmonary nodules, left greater than right. Biapical pleural and parenchymal scarring. 1.1 x 1.4 cm heterogeneous or semisolid right apical nodule, question related to pleural and parenchymal scarring. 1.5 cm partially calcified left thyroid nodule. Based on patient age in size, this does not meet criteria for follow-up. Moderate coronary artery calcification. Fleischner guidelines were followed. Chest CT 04/01/22 14:44 IMPRESSION: *Unchanged semisolid 1.5 cm x 1.0 cm nodule within the apex of the right pulmonary lobe. Per the Fleischner Society 2017 revised guidelines, as clinically indicated recommend annual screening CT to demonstrate stability to demonstrate ultimate 5 year stability. *Unchanged small number of scattered solid pulmonary nodules ranging in size up to 6 mm diameter stable compared with 01/10/2022. *Moderate-marked diffuse coronary artery calcific atherosclerosis. *Partially visualized posttreatment related changes of the right breast. Medications Medications Current Medications Amlodipine Besylate (Amlodipine Besylate 10 Mg Tablet) 10 mg PO BEDTIME TIMOTEO; Protocol Last Admin: 04/17/22 19:41 Dose: 10 mg Bacitracin (Bacitracin Oint 14 Gm Tube) 1 appl TOPICAL BID TIMOTEO; Protocol Last Admin: 04/17/22 19:44 Dose: Not Given Hydrochlorothiazide (Hydrochlorothiazide 12.5 Mg Tablet) 12.5 mg PO DAILY TIMOTEO; Protocol Last Admin: 04/17/22 09:31 Dose: 12.5 mg Hydrocortisone (Hydrocortisone 1 % Cream 28.35 Gm Tube) 1 appl TOPICAL DAILY PRN PRN Reason: pruritic skin Lorazepam (Lorazepam 1 Mg Tablet) 1 mg PO ONCE PRN PRN Reason: Anxiety Olanzapine (Olanzapine 5 Mg Tablet) 5 mg PO BEDTIME TIMOTEO Last Admin: 04/17/22 19:41 Dose: 5 mg Olanzapine (Olanzapine 10 Mg Vial) 5 mg IM BEDTIME PRN PRN Reason: refusal of PO Last Admin: 04/04/22 23:12 Dose: 5 mg Oxybutynin Chloride (Oxybutynin Chloride Er 5 Mg Tab.Er.24) 10 mg PO DAILY TIMOTEO Last Admin: 04/17/22 09:31 Dose: 10 mg Trazodone HCl (Trazodone Hcl 50 Mg Tablet) 50 mg PO BEDTIME PRN PRN Reason: insomnia Last Admin: 04/17/22 19:41 Dose: 50 mg Allergies Allergies Allergy/AdvReac Type Severity Reaction Status Date / Time codeine Allergy Unknown Unknown Verified 12/15/21 18:29 sulfadiazine Allergy Unknown Unknown Verified 12/15/21 18:29 Assessment & Plan Assessment & Plan (1) Urinary incontinence: Status: Acute Code(s): R32 - Unspecified urinary incontinence Plan If able to obtain urine for urinalysis and culture to further assess and evaluate for possible UTI Post void residuals to be obtained and tracked to be sure patient is not retaining versus incomplete bladder emptying Toilet scheduling and timed voiding Given patient is reporting unsensed urination unlikely urological medications for incontinence will be beneficial at this time. Psychiatry Plan 1. Continue same treatment, 2. Waiting for placement Reason for contiued inpatient stay Substantial Risk for: inability to function, rapid decompensation and med/psych decompensation Time Spent With Patient Time: Total time managing care of this patient today _20___ minutes.
[2022-04-18 08:30] VITALS: BP 135/58; PULSE 62; RESP 18; TEMP 36.6; O2SAT 94
[2022-04-18] MEDS: hydroCHLOROthiazide 12.5 MG TABLET PO (08:33)
--- NOTE | 2022-04-18 09:55 | PM.EVENT ---
Event Note Date of Service: 04/18/22 Event Note: S Asked to See patient for an untwinessed fall. Pt unable to provide meaningful history. Per report from patients RN today, pt slipped while attempting to lower herself to bathroom. Unclear if any head trauma. A 1:[address] Pt seen and examined. She denies any pain other than toothache. She denies falling yesterday. She denies any bony pain otherwise She knows she at [facility] [place], but otherwise disoriented. Objective Vitals -- last documented Gen - NAD; awake and alert; obeying basic commands CVS - S1S2 Lung - clear Abd - soft, nt Neuro - moving all 4 limbs, speech comprehensible, CN 2-12 intact b/l; no gross focal motor deficits appreciated. A/P 86 yo F who had a reported unwitnessed fall. Would recommend monitoring orthostatic BP. No focal deficits on exam, but would recommend a CT scan of brain; continue with 1:1 sitter above relayed to primary RN and provider. Will sign off, please reconsult PRN Time Spent With Patient Time: Total time managing care of this patient today ____ minutes.
[2022-04-18 18:00] VITALS: BP 153/73; PULSE 60; RESP 17; TEMP 36.5; O2SAT 98
[2022-04-18] MEDS: traZODone HCL 50 MG TABLET PO (19:43)
[2022-04-18] MEDS: amLODIPine Besylate 10 MG TABLET PO (19:43)
[2022-04-18] MEDS: OLANZapine 5 MG TABLET PO (19:43)
--- NOTE | 2022-04-19 08:23 | P.PNPSI_ITS ---
Subjective Subjective Date of Service: 04/19/22 Reason For Visit: Mood Subjective Notes: Conditional Voluntary Interim History: The nursing staff reported the patient had been compliant with medications. Yesterday she had a fall and she refuse care but so far clinically she looks stable. On interview the patient denies new symptoms, waiting for placement. Mental Status Exam Mental Status Exam Patient Appearance: Appropriate Patient Orientation: Person and Situation Level of Consciousness: Awake and Appropriate Patient Behavior: Guarded and Passive Mood Description: Withdrawn Affect Description: Constricted Patient Cognition Impaired: Yes Ability to Follow Directions: Good Speech Pattern: Clear Hallucinations: None Delusions: Paranoid Ideation Thought Process: Distracted and Evasive Thought Content: positive for [place], positive for [place], positive for [place] and positive for Poverty of Content Judgement: Poor Diagnostics Vital Signs (24Hr): Vital Signs - 24 hr 04/18/22 08:30 04/18/22 08:30 04/18/22 18:00 Temperature 97.8 F 97.8 F 97.7 F Pulse Rate 62 62 60 Respiratory Rate 18 18 17 Blood Pressure 135/58 L 135/58 L 153/73 H Pulse Oximetry 94 98 Oxygen Delivery Method Room Air Room Air BMI result Body Mass Index 24.4 Labs 01/20/22 08:00 01/20/22 08:00 Imaging Radiology Impressions: ITS Impressions Chest CT 01/10/22 15:11 IMPRESSION: Bilateral small pulmonary nodules, left greater than right. Biapical pleural and parenchymal scarring. 1.1 x 1.4 cm heterogeneous or semisolid right apical nodule, question related to pleural and parenchymal scarring. 1.5 cm partially calcified left thyroid nodule. Based on patient age in size, this does not meet criteria for follow-up. Moderate coronary artery calcification. Fleischner guidelines were followed. Chest CT 04/01/22 14:44 IMPRESSION: *Unchanged semisolid 1.5 cm x 1.0 cm nodule within the apex of the right pulmonary lobe. Per the Fleischner Society 2017 revised guidelines, as clinically indicated recommend annual screening CT to demonstrate stability to demonstrate ultimate 5 year stability. *Unchanged small number of scattered solid pulmonary nodules ranging in size up to 6 mm diameter stable compared with 01/10/2022. *Moderate-marked diffuse coronary artery calcific atherosclerosis. *Partially visualized posttreatment related changes of the right breast. Head CT 04/18/22 09:11 IMPRESSION: No acute intracranial pathology. Medications Medications Current Medications Amlodipine Besylate (Amlodipine Besylate 10 Mg Tablet) 10 mg PO BEDTIME TIMOTEO; Protocol Last Admin: 04/18/22 19:43 Dose: 10 mg Bacitracin (Bacitracin Oint 14 Gm Tube) 1 appl TOPICAL BID TIMOTEO; Protocol Last Admin: 04/18/22 19:47 Dose: Not Given Hydrochlorothiazide (Hydrochlorothiazide 12.5 Mg Tablet) 12.5 mg PO DAILY TIMOTEO; Protocol Last Admin: 04/18/22 08:33 Dose: 12.5 mg Hydrocortisone (Hydrocortisone 1 % Cream 28.35 Gm Tube) 1 appl TOPICAL DAILY PRN PRN Reason: pruritic skin Lorazepam (Lorazepam 1 Mg Tablet) 1 mg PO ONCE PRN PRN Reason: Anxiety Olanzapine (Olanzapine 5 Mg Tablet) 5 mg PO BEDTIME TIMOTEO Last Admin: 04/18/22 19:43 Dose: 5 mg Olanzapine (Olanzapine 10 Mg Vial) 5 mg IM BEDTIME PRN PRN Reason: refusal of PO Last Admin: 04/04/22 23:12 Dose: 5 mg Oxybutynin Chloride (Oxybutynin Chloride Er 5 Mg Tab.Er.24) 10 mg PO DAILY TIMOTEO Last Admin: 04/18/22 08:32 Dose: 10 mg Trazodone HCl (Trazodone Hcl 50 Mg Tablet) 50 mg PO BEDTIME PRN PRN Reason: insomnia Last Admin: 04/18/22 19:43 Dose: 50 mg Allergies Allergies Allergy/AdvReac Type Severity Reaction Status Date / Time codeine Allergy Unknown Unknown Verified 12/15/21 18:29 sulfadiazine Allergy Unknown Unknown Verified 12/15/21 18:29 Assessment & Plan Assessment & Plan (1) Urinary incontinence: Status: Acute Code(s): R32 - Unspecified urinary incontinence Plan If able to obtain urine for urinalysis and culture to further assess and evaluate for possible UTI Post void residuals to be obtained and tracked to be sure patient is not retaining versus incomplete bladder emptying Toilet scheduling and timed voiding Given patient is reporting unsensed urination unlikely urological medications for incontinence will be beneficial at this time. Psychiatry Plan 1. Continue same treatment, 2. Waiting for placement Reason for contiued inpatient stay Substantial Risk for: inability to function, rapid decompensation and med/psych decompensation Time Spent With Patient Time: Total time managing care of this patient today __20__ minutes.
[2022-04-19 09:30] VITALS: BP 144/65; PULSE 64; RESP 14; TEMP 36.6; O2SAT 94
[2022-04-19] MEDS: hydroCHLOROthiazide 12.5 MG TABLET PO (09:47)
[2022-04-19 18:00] VITALS: BP 126/62; PULSE 84; RESP 17; TEMP 36.6; O2SAT 96
[2022-04-19] MEDS: OLANZapine 5 MG TABLET PO (19:42)
[2022-04-19] MEDS: traZODone HCL 50 MG TABLET PO (19:42)
[2022-04-19] MEDS: amLODIPine Besylate 10 MG TABLET PO (19:42)
[2022-04-20 06:00] VITALS: BP 151/66; PULSE 67; RESP 16; TEMP 36.6; O2SAT 96
[2022-04-20 07:00] VITALS: BMI 26.9
--- NOTE | 2022-04-20 08:07 | P.PNPSI_ITS ---
Subjective Subjective Date of Service: 04/20/22 Reason For Visit: Mood Subjective Notes: Section 7 and Section 8 Interim History: The nursing staff reported patient had been compliant with treatment, she was seen in the common areas. On interview the patient denies new symptoms she wants to see a dentist and I will discuss the case with the it application administrator since the patient had been here for quite long time. Waiting for placement. Mental Status Exam Mental Status Exam Patient Appearance: Appropriate Patient Orientation: Person, Place and Situation Level of Consciousness: Awake and Appropriate Patient Behavior: Guarded Mood Description: Withdrawn Affect Description: Constricted Patient Cognition Impaired: Yes Speech Pattern: Clear Hallucinations: None Delusions: Paranoid Ideation Thought Process: Linear Thought Content: positive for [place], positive for Perseveration and positive for Poverty of Content Judgement: Poor Diagnostics Vital Signs (24Hr): Vital Signs - 24 hr 04/19/22 09:30 04/19/22 18:00 Temperature 98 F 97.8 F Pulse Rate 64 84 Respiratory Rate 14 17 Blood Pressure 144/65 H 126/62 Pulse Oximetry 94 96 Oxygen Delivery Method Room Air Room Air BMI result Body Mass Index 24.4 Labs 01/20/22 08:00 01/20/22 08:00 Imaging Radiology Impressions: ITS Impressions Chest CT 01/10/22 15:11 IMPRESSION: Bilateral small pulmonary nodules, left greater than right. Biapical pleural and parenchymal scarring. 1.1 x 1.4 cm heterogeneous or semisolid right apical nodule, question related to pleural and parenchymal scarring. 1.5 cm partially calcified left thyroid nodule. Based on patient age in size, this does not meet criteria for follow-up. Moderate coronary artery calcification. Fleischner guidelines were followed. Chest CT 04/01/22 14:44 IMPRESSION: *Unchanged semisolid 1.5 cm x 1.0 cm nodule within the apex of the right pulmonary lobe. Per the Fleischner Society 2017 revised guidelines, as clinically indicated recommend annual screening CT to demonstrate stability to demonstrate ultimate 5 year stability. *Unchanged small number of scattered solid pulmonary nodules ranging in size up to 6 mm diameter stable compared with 01/10/2022. *Moderate-marked diffuse coronary artery calcific atherosclerosis. *Partially visualized posttreatment related changes of the right breast. Head CT 04/18/22 09:11 IMPRESSION: No acute intracranial pathology. Medications Medications Current Medications Amlodipine Besylate (Amlodipine Besylate 10 Mg Tablet) 10 mg PO BEDTIME [facility]O; Protocol Last Admin: 04/19/22 19:42 Dose: 10 mg Bacitracin (Bacitracin Oint 14 Gm Tube) 1 appl TOPICAL BID [facility]O; Protocol Last Admin: 04/19/22 19:51 Dose: Not Given Hydrochlorothiazide (Hydrochlorothiazide 12.5 Mg Tablet) 12.5 mg PO DAILY TIM[facility]O; Protocol Last Admin: 04/19/22 09:47 Dose: 12.5 mg Hydrocortisone (Hydrocortisone 1 % Cream 28.35 Gm Tube) 1 appl TOPICAL DAILY PRN PRN Reason: pruritic skin Lorazepam (Lorazepam 1 Mg Tablet) 1 mg PO ONCE PRN PRN Reason: Anxiety Olanzapine (Olanzapine 5 Mg Tablet) 5 mg PO BEDTIME TIMOTEO Last Admin: 04/19/22 19:42 Dose: 5 mg Olanzapine (Olanzapine 10 Mg Vial) 5 mg IM BEDTIME PRN PRN Reason: refusal of PO Last Admin: 04/04/22 23:12 Dose: 5 mg Oxybutynin Chloride (Oxybutynin Chloride Er 5 Mg Tab.Er.24) 10 mg PO DAILY TIMOTEO Last Admin: 04/19/22 09:47 Dose: 10 mg Trazodone HCl (Trazodone Hcl 50 Mg Tablet) 50 mg PO BEDTIME PRN PRN Reason: insomnia Last Admin: 04/19/22 19:42 Dose: 50 mg Allergies Allergies Allergy/AdvReac Type Severity Reaction Status Date / Time codeine Allergy Unknown Unknown Verified 12/15/21 18:29 sulfadiazine Allergy Unknown Unknown Verified 12/15/21 18:29 Assessment & Plan Assessment & Plan (1) Urinary incontinence: Status: Acute Code(s): R32 - Unspecified urinary incontinence Plan If able to obtain urine for urinalysis and culture to further assess and evaluate for possible UTI Post void residuals to be obtained and tracked to be sure patient is not retaining versus incomplete bladder emptying Toilet scheduling and timed voiding Given patient is reporting unsensed urination unlikely urological medications for incontinence will be beneficial at this time. Psychiatry Plan 1. Continue same treatment, 2. Waiting for placement Reason for contiued inpatient stay Substantial Risk for: inability to function, rapid decompensation and med/psych decompensation Time Spent With Patient Time: Total time managing care of this patient today __20__ minutes.
[2022-04-20] MEDS: hydroCHLOROthiazide 12.5 MG TABLET PO (10:11)
[2022-04-20 18:00] VITALS: BP 150/79; PULSE 105; RESP 16; TEMP 36.1; O2SAT 94
[2022-04-20] MEDS: Bacitracin Oint 14 GM TUBE 1 APPL TOPICAL (20:24)
[2022-04-20] MEDS: OLANZapine 5 MG TABLET PO (20:27)
[2022-04-20] MEDS: traZODone HCL 50 MG TABLET PO (20:27)
[2022-04-20] MEDS: amLODIPine Besylate 10 MG TABLET PO (20:27)
[2022-04-21 06:00] VITALS: BP 157/78; PULSE 68; RESP 20; TEMP 36.6; O2SAT 95
[2022-04-21] MEDS: hydroCHLOROthiazide 12.5 MG TABLET PO (10:11)
--- NOTE | 2022-04-21 14:56 | P.PNPSI_ITS ---
Subjective Subjective Date of Service: 04/21/22 Reason For Visit: Mood Subjective Notes: Conditional Voluntary Interim History: The nursing staff reported the patient had been taking her medications no new symptoms. On interview the patient was sleepy, waiting for placement Mental Status Exam Mental Status Exam Patient Appearance: Appropriate Patient Orientation: Person and Situation Level of Consciousness: Awake and Appropriate Patient Behavior: Guarded and Passive Mood Description: Withdrawn Affect Description: Constricted Patient Cognition Impaired: Yes Ability to Follow Directions: Fair Speech Pattern: Clear Hallucinations: None Delusions: Not Present Thought Process: Distracted and Linear Thought Content: positive for [place] and positive for Poverty of Content Judgement: Poor Diagnostics Vital Signs (24Hr): Vital Signs - 24 hr 04/20/22 18:00 04/21/22 06:00 Temperature 97 F 97.9 F Pulse Rate 105 H 68 Respiratory Rate 16 20 Blood Pressure 150/79 H 157/78 H Pulse Oximetry 94 95 Oxygen Delivery Method Room Air Room Air BMI result Body Mass Index 26.9 Labs 01/20/22 08:00 01/20/22 08:00 Imaging Radiology Impressions: ITS Impressions Chest CT 01/10/22 15:11 IMPRESSION: Bilateral small pulmonary nodules, left greater than right. Biapical pleural and parenchymal scarring. 1.1 x 1.4 cm heterogeneous or semisolid right apical nodule, question related to pleural and parenchymal scarring. 1.5 cm partially calcified left thyroid nodule. Based on patient age in size, this does not meet criteria for follow-up. Moderate coronary artery calcification. Fleischner guidelines were followed. Chest CT 04/01/22 14:44 IMPRESSION: *Unchanged semisolid 1.5 cm x 1.0 cm nodule within the apex of the right pulmonary lobe. Per the Fleischner Society 2017 revised guidelines, as clinically indicated recommend annual screening CT to demonstrate stability to demonstrate ultimate 5 year stability. *Unchanged small number of scattered solid pulmonary nodules ranging in size up to 6 mm diameter stable compared with 01/10/2022. *Moderate-marked diffuse coronary artery calcific atherosclerosis. *Partially visualized posttreatment related changes of the right breast. Head CT 04/18/22 09:11 IMPRESSION: No acute intracranial pathology. Medications Medications Current Medications Amlodipine Besylate (Amlodipine Besylate 10 Mg Tablet) 10 mg PO BEDTIME [facility]; Protocol Last Admin: 04/20/22 20:27 Dose: 10 mg Bacitracin (Bacitracin Oint 14 Gm Tube) 1 appl TOPICAL BID TIMOTEO; Protocol Last Admin: 04/21/22 10:12 Dose: Not Given Hydrochlorothiazide (Hydrochlorothiazide 12.5 Mg Tablet) 12.5 mg PO DAILY [facility]; Protocol Last Admin: 04/21/22 10:11 Dose: 12.5 mg Hydrocortisone (Hydrocortisone 1 % Cream 28.35 Gm Tube) 1 appl TOPICAL DAILY PRN PRN Reason: pruritic skin Lorazepam (Lorazepam 1 Mg Tablet) 1 mg PO ONCE PRN PRN Reason: Anxiety Olanzapine (Olanzapine 5 Mg Tablet) 5 mg PO BEDTIME TIMOTEO Last Admin: 04/20/22 20:27 Dose: 5 mg Olanzapine (Olanzapine 10 Mg Vial) 5 mg IM BEDTIME PRN PRN Reason: refusal of PO Last Admin: 04/04/22 23:12 Dose: 5 mg Oxybutynin Chloride (Oxybutynin Chloride Er 5 Mg Tab.Er.24) 10 mg PO DAILY [facility] Last Admin: 04/21/22 10:11 Dose: 10 mg Trazodone HCl (Trazodone Hcl 50 Mg Tablet) 50 mg PO BEDTIME PRN PRN Reason: insomnia Last Admin: 04/20/22 20:27 Dose: 50 mg Allergies Allergies Allergy/AdvReac Type Severity Reaction Status Date / Time codeine Allergy Unknown Unknown Verified 12/15/21 18:29 sulfadiazine Allergy Unknown Unknown Verified 12/15/21 18:29 Assessment & Plan Assessment & Plan (1) Urinary incontinence: Status: Acute Code(s): R32 - Unspecified urinary incontinence Plan If able to obtain urine for urinalysis and culture to further assess and evalua te for possible UTI Post void residuals to be obtained and tracked to be sure patient is not retaini ng versus incomplete bladder emptying Toilet scheduling and timed voiding Given patient is reporting unsensed urination unlikely urological medications for incontinence will be beneficial at this time. Psychiatry Plan 1. Continue same treatment, 2. Waiting for placement Reason for contiued inpatient stay Substantial Risk for: inability to function, rapid decompensation and med/psych decompensation Time Spent With Patient Time: Total time managing care of this patient today _20___ minutes.
[2022-04-21 18:00] VITALS: BP 155/71; PULSE 77; RESP 17; TEMP 36.8; O2SAT 95
[2022-04-21] MEDS: traZODone HCL 50 MG TABLET PO (20:07)
[2022-04-21] MEDS: OLANZapine 5 MG TABLET PO (20:07)
[2022-04-21] MEDS: amLODIPine Besylate 10 MG TABLET PO (20:07)
[2022-04-22] MEDS: hydroCHLOROthiazide 12.5 MG TABLET PO (09:09)
[2022-04-22 09:15] VITALS: BP 134/64; PULSE 68; RESP 16; TEMP 36.5; O2SAT 95
--- NOTE | 2022-04-22 14:48 | HO.PSYCHPN ---
Subjective Subjective Date of Service: 04/22/22 Reason For Visit: Mood Interim History: met with patient, chart reviewed, discussed with Nursing. Overall no acute concerns. Talked about her 's and awaiting long-term care. Reported feeling happy with the care she was receiving. Was asking in inappropriate manner about making her own arrangements and speaking with her treatment team and her nieces. This did not appear to be driven by psychosis, frustration or depression. Medication Compliance: Yes Side effects from medications: No Attending Groups: Yes Review of Systems Acute medical concerns: No Review of Systems Review of Systems nothing acute Mental Status Exam Mental Status Exam Narrative: seen in day area. Appropriately dressed and fair hygiene. Organized. Denied depression, SI or HI. No overt psychosis noted. No agitation. Insight and judgment fair Diagnostics Vital Signs (24Hr): Vital Signs - 24 hr 04/21/22 18:00 04/22/22 09:15 Temperature 98.2 F 97.7 F Pulse Rate 77 68 Respiratory Rate 17 16 Blood Pressure 155/71 H 134/64 Pulse Oximetry 95 95 Oxygen Delivery Method Room Air Room Air BMI result Body Mass Index 26.9 Labs 01/20/22 08:00 01/20/22 08:00 Imaging Radiology Impressions: ITS Impressions Chest CT 01/10/22 15:11 IMPRESSION: Bilateral small pulmonary nodules, left greater than right. Biapical pleural and parenchymal scarring. 1.1 x 1.4 cm heterogeneous or semisolid right apical nodule, question related to pleural and parenchymal scarring. 1.5 cm partially calcified left thyroid nodule. Based on patient age in size, this does not meet criteria for follow-up. Moderate coronary artery calcification. Fleischner guidelines were followed. Chest CT 04/01/22 14:44 IMPRESSION: *Unchanged semisolid 1.5 cm x 1.0 cm nodule within the apex of the right pulmonary lobe. Per the Fleischner Society 2017 revised guidelines, as clinically indicated recommend annual screening CT to demonstrate stability to demonstrate ultimate 5 year stability. *Unchanged small number of scattered solid pulmonary nodules ranging in size up to 6 mm diameter stable compared with 01/10/2022. *Moderate-marked diffuse coronary artery calcific atherosclerosis. *Partially visualized posttreatment related changes of the right breast. Head CT 04/18/22 09:11 IMPRESSION: No acute intracranial pathology. Medications Medications Current Medications Amlodipine Besylate (Amlodipine Besylate 10 Mg Tablet) 10 mg PO BEDTIME [facility]; Protocol Last Admin: 04/21/22 20:07 Dose: 10 mg Bacitracin (Bacitracin Oint 14 Gm Tube) 1 appl TOPICAL BID [facility]; Protocol Last Admin: 04/22/22 11:12 Dose: Not Given Hydrochlorothiazide (Hydrochlorothiazide 12.5 Mg Tablet) 12.5 mg PO DAILY [facility]; Protocol Last Admin: 04/22/22 09:09 Dose: 12.5 mg Hydrocortisone (Hydrocortisone 1 % Cream 28.35 Gm Tube) 1 appl TOPICAL DAILY PRN PRN Reason: pruritic skin Lorazepam (Lorazepam 1 Mg Tablet) 1 mg PO ONCE PRN PRN Reason: Anxiety Olanzapine (Olanzapine 5 Mg Tablet) 5 mg PO BEDTIME TIMOTEO Last Admin: 04/21/22 20:07 Dose: 5 mg Olanzapine (Olanzapine 10 Mg Vial) 5 mg IM BEDTIME PRN PRN Reason: refusal of PO Last Admin: 04/04/22 23:12 Dose: 5 mg Oxybutynin Chloride (Oxybutynin Chloride Er 5 Mg Tab.Er.24) 10 mg PO DAILY [facility]OTEO Last Admin: 04/22/22 09:08 Dose: 10 mg Trazodone HCl (Trazodone Hcl 50 Mg Tablet) 50 mg PO BEDTIME PRN PRN Reason: insomnia Last Admin: 04/21/22 20:07 Dose: 50 mg Allergies Allergies Allergy/AdvReac Type Severity Reaction Status Date / Time codeine Allergy Unknown Unknown Verified 12/15/21 18:29 sulfadiazine Allergy Unknown Unknown Verified 12/15/21 18:29 Assessment & Plan Assessment & Plan (1) Urinary incontinence: Status: Acute Code(s): R32 - Unspecified urinary incontinence Plan If able to obtain urine for urinalysis and culture to further assess and evaluate for possible UTI Post void residuals to be obtained and tracked to be sure patient is not retaining versus incomplete bladder emptying Toilet scheduling and timed voiding Given patient is reporting unsensed urination unlikely urological medications for incontinence will be beneficial at this time. Psychiatry Plan 1. Continue same treatment, 2. Waiting for placement 04/22/2022: No changes to current plan Reason for contiued inpatient stay Substantial Risk for: rapid decompensation Time Spent With Patient Time: Total time managing care of this patient today ____ minutes.
[2022-04-22 18:00] VITALS: BP 165/80; PULSE 67; RESP 18; TEMP 36.3; O2SAT 96
[2022-04-22] MEDS: amLODIPine Besylate 10 MG TABLET PO (19:51)
[2022-04-22] MEDS: traZODone HCL 50 MG TABLET PO (19:51)
[2022-04-22] MEDS: OLANZapine 5 MG TABLET PO (19:52)
[2022-04-22] MEDS: Ibuprofen 600 MG TABLET PO (22:41)
[2022-04-22] MEDS: Acetaminophen 325 MG TABLET 650 MG PO (22:42)
[2022-04-23] MEDS: hydroCHLOROthiazide 12.5 MG TABLET PO (09:00)
[2022-04-23 09:05] VITALS: BP 136/63; PULSE 103; RESP 16; TEMP 35.9; O2SAT 93
--- NOTE | 2022-04-23 12:08 | P.PNPSI_ITS ---
Subjective Subjective Date of Service: 04/23/22 Reason For Visit: Mood Guardianship: Yes Interim History: met with patient, chart reviewed, discussed with Nursing. Overall no acute concerns. Feeling well cared for. Happy around Tylenol and ibuprofen for tooth ache. Attending groups. No evidence of depression, aggression or psychosis. Review of Systems Review of Systems nothing acute- toothache being managed Mental Status Exam Mental Status Exam Narrative: seen in day area. [place] knitted hat. Appropriately dressed and fair hygiene. Organized. Denied depression, SI or HI. No overt psychosis noted. No agitation. Insight and judgment fair Diagnostics Vital Signs (24Hr): Vital Signs - 24 hr 04/22/22 18:00 04/23/22 09:05 Temperature 97.3 F 96.6 F L Pulse Rate 67 103 H Respiratory Rate 18 16 Blood Pressure 165/80 H 136/63 Pulse Oximetry 96 93 Oxygen Delivery Method Room Air Room Air BMI result Body Mass Index 26.9 Labs 01/20/22 08:00 01/20/22 08:00 Imaging Radiology Impressions: ITS Impressions Chest CT 01/10/22 15:11 IMPRESSION: Bilateral small pulmonary nodules, left greater than right. Biapical pleural and parenchymal scarring. 1.1 x 1.4 cm heterogeneous or semisolid right apical nodule, question related to pleural and parenchymal scarring. 1.5 cm partially calcified left thyroid nodule. Based on patient age in size, this does not meet criteria for follow-up. Moderate coronary artery calcification. Fleischner guidelines were followed. Chest CT 04/01/22 14:44 IMPRESSION: *Unchanged semisolid 1.5 cm x 1.0 cm nodule within the apex of the right pulmonary lobe. Per the Fleischner Society 2017 revised guidelines, as clinically indicated recommend annual screening CT to demonstrate stability to demonstrate ultimate 5 year stability. *Unchanged small number of scattered solid pulmonary nodules ranging in size up to 6 mm diameter stable compared with 01/10/2022. *Moderate-marked diffuse coronary artery calcific atherosclerosis. *Partially visualized posttreatment related changes of the right breast. Head CT 04/18/22 09:11 IMPRESSION: No acute intracranial pathology. Medications Medications Current Medications Acetaminophen (Acetaminophen 325 Mg Tablet) 650 mg PO Q6H PRN PRN Reason: Pain, Moderate (Pain Scale 4-6 Last Admin: 04/22/22 22:42 Dose: 650 mg Amlodipine Besylate (Amlodipine Besylate 10 Mg Tablet) 10 mg PO BEDTIME [facility]; P rotocol Last Admin: 04/22/22 19:51 Dose: 10 mg Bacitracin (Bacitracin Oint 14 Gm Tube) 1 appl TOPICAL BID [facility]; Protocol Last Admin: 04/22/22 22:01 Dose: Not Given Hydrochlorothiazide (Hydrochlorothiazide 12.5 Mg Tablet) 12.5 mg PO DAILY [facility]; Protocol Last Admin: 04/23/22 09:00 Dose: 12.5 mg Hydrocortisone (Hydrocortisone 1 % Cream 28.35 Gm Tube) 1 appl TOPICAL DAILY PRN PRN Reason: pruritic skin Ibuprofen (Ibuprofen 600 Mg Tablet) 600 mg PO Q8H PRN PRN Reason: pain not relieved by tylenol Olanzapine (Olanzapine 5 Mg Tablet) 5 mg PO BEDTIME [facility] Last Admin: 04/22/22 19:52 Dose: 5 mg Olanzapine (Olanzapine 10 Mg Vial) 5 mg IM BEDTIME PRN PRN Reason: refusal of PO Last Admin: 04/04/22 23:12 Dose: 5 mg Oxybutynin Chloride (Oxybutynin Chloride Er 5 Mg Tab.Er.24) 10 mg PO DAILY [facility] Last Admin: 04/23/22 09:00 Dose: 10 mg Trazodone HCl (Trazodone Hcl 50 Mg Tablet) 50 mg PO BEDTIME PRN PRN Reason: insomnia Last Admin: 04/22/22 19:51 Dose: 50 mg Allergies Allergies Allergy/AdvReac Type Severity Reaction Status Date / Time codeine Allergy Unknown Unknown Verified 12/15/21 18:29 sulfadiazine Allergy Unknown Unknown Verified 12/15/21 18:29 Assessment & Plan Assessment & Plan (1) Urinary incontinence: Status: Acute Code(s): R32 - Unspecified urinary incontinence Plan If able to obtain urine for urinalysis and culture to further assess and evaluate for possible UTI Post void residuals to be obtained and tracked to be sure patient is not retaining versus incomplete bladder emptying Toilet scheduling and timed voiding Given patient is reporting unsensed urination unlikely urological medications for incontinence will be beneficial at this time. Psychiatry Plan 1. Continue same treatment, 2. Waiting for placement 04/23/2022: No changes to current plan Reason for contiued inpatient stay Substantial Risk for: inability to function and rapid decompensation Time Spent With Patient Time: Total time managing care of this patient today ____ minutes.
[2022-04-23 18:00] VITALS: BP 140/74; PULSE 72; RESP 18; TEMP 36.9; O2SAT 95
[2022-04-23] MEDS: OLANZapine 5 MG TABLET PO (20:25)
[2022-04-23] MEDS: amLODIPine Besylate 10 MG TABLET PO (20:25)
[2022-04-23] MEDS: traZODone HCL 50 MG TABLET PO (20:37)
[2022-04-24 07:30] VITALS: BP 138/76; PULSE 72; RESP 18; TEMP 36.4; O2SAT 96
[2022-04-24] MEDS: hydroCHLOROthiazide 12.5 MG TABLET PO (11:35)
--- NOTE | 2022-04-24 12:54 | HO.PSYCHPN ---
Subjective Subjective Date of Service: 04/24/22 Reason For Visit: Mood Subjective Notes: Section 7 and Section 8 Interim History: The nursing staff reported the patient had been compliant with treatment, no new symptoms. On interview the patient complained that she needs to have a dentist appointment. Eye contact the nurse cell feed department supervisor and explained the situation and we will try to work on the solution. Mental Status Exam Mental Status Exam Patient Appearance: Well Grooomed and Appropriate Patient Orientation: Person and Situation Level of Consciousness: Awake Patient Behavior: Guarded and Passive Mood Description: Withdrawn Affect Description: Constricted Patient Cognition Impaired: Yes Ability to Follow Directions: Good Speech Pattern: Clear Hallucinations: None Delusions: Paranoid Ideation Thought Process: Distracted Thought Content: positive for [place], positive for [place] and positive for Poverty of Content Judgement: Fair Diagnostics Vital Signs (24Hr): Vital Signs - 24 hr 04/23/22 18:00 04/24/22 07:30 Temperature 98.5 F 97.6 F Pulse Rate 72 72 Respiratory Rate 18 18 Blood Pressure 140/74 H 138/76 Pulse Oximetry 95 96 Oxygen Delivery Method Room Air Room Air BMI result Body Mass Index 26.9 Labs 01/20/22 08:00 01/20/22 08:00 Imaging Radiology Impressions: ITS Impressions Chest CT 01/10/22 15:11 IMPRESSION: Bilateral small pulmonary nodules, left greater than right. Biapical pleural and parenchymal scarring. 1.1 x 1.4 cm heterogeneous or semisolid right apical nodule, question related to pleural and parenchymal scarring. 1.5 cm partially calcified left thyroid nodule. Based on patient age in size, this does not meet criteria for follow-up. Moderate coronary artery calcification. Fleischner guidelines were followed. Chest CT 04/01/22 14:44 IMPRESSION: *Unchanged semisolid 1.5 cm x 1.0 cm nodule within the apex of the right pulmonary lobe. Per the Fleischner Society 2017 revised guidelines, as clinically indicated recommend annual screening CT to demonstrate stability to demonstrate ultimate 5 year stability. *Unchanged small number of scattered solid pulmonary nodules ranging in size up to 6 mm diameter stable compared with 01/10/2022. *Moderate-marked diffuse coronary artery calcific atherosclerosis. *Partially visualized posttreatment related changes of the right breast. Head CT 04/18/22 09:11 IMPRESSION: No acute intracranial pathology. Medications Medications Current Medications Acetaminophen (Acetaminophen 325 Mg Tablet) 650 mg PO Q6H PRN PRN Reason: Pain, Moderate (Pain Scale 4-6 Last Admin: 04/22/22 22:42 Dose: 650 mg Amlodipine Besylate (Amlodipine Besylate 10 Mg Tablet) 10 mg PO BEDTIME [facility]; Protocol Last Admin: 04/23/22 20:25 Dose: 10 mg Bacitracin (Bacitracin Oint 14 Gm Tube) 1 appl TOPICAL BID [facility]; Protocol Last Admin: 04/24/22 11:36 Dose: Not Given Hydrochlorothiazide (Hydrochlorothiazide 12.5 Mg Tablet) 12.5 mg PO DAILY [facility]; Protocol Last Admin: 04/24/22 11:35 Dose: 12.5 mg Hydrocortisone (Hydrocortisone 1 % Cream 28.35 Gm Tube) 1 appl TOPICAL DAILY PRN PRN Reason: pruritic skin Ibuprofen (Ibuprofen 600 Mg Tablet) 600 mg PO Q8H PRN PRN Reason: pain not relieved by tylenol Olanzapine (Olanzapine 5 Mg Tablet) 5 mg PO BEDTIME [facility] Last Admin: 04/23/22 20:25 Dose: 5 mg Olanzapine (Olanzapine 10 Mg Vial) 5 mg IM BEDTIME PRN PRN Reason: refusal of PO Last Admin: 04/04/22 23:12 Dose: 5 mg Oxybutynin Chloride (Oxybutynin Chloride Er 5 Mg Tab.Er.24) 10 mg PO DAILY [facility] Last Admin: 04/24/22 11:35 Dose: 10 mg Trazodone HCl (Trazodone Hcl 50 Mg Tablet) 50 mg PO BEDTIME PRN PRN Reason: insomnia Last Admin: 04/23/22 20:37 Dose: 50 mg Allergies Allergies Allergy/AdvReac Type Severity Reaction Status Date / Time codeine Allergy Unknown Unknown Verified 12/15/21 18:29 sulfadiazine Allergy Unknown Unknown Verified 12/15/21 18:29 Assessment & Plan Assessment & Plan (1) Urinary incontinence: Status: Acute Code(s): R32 - Unspecified urinary incontinence Plan If able to obtain urine for urinalysis and culture to further assess and evaluate for possible UTI Post void residuals to be obtained and tracked to be sure patient is not retaining versus incomplete bladder emptying Toilet scheduling and timed voiding Given patient is reporting unsensed urination unlikely urological medications for incontinence will be beneficial at this time. Psychiatry Plan 1. Continue same treatment, 2. Waiting for placement Reason for contiued inpatient stay Substantial Risk for: inability to function, rapid decompensation and med/psych decompensation Time Spent With Patient Time: Total time managing care of this patient today _20___ minutes.
[2022-04-24 18:00] VITALS: BP 175/77; PULSE 67; RESP 17; TEMP 36.4; O2SAT 94
[2022-04-24] MEDS: amLODIPine Besylate 10 MG TABLET PO (20:07)
[2022-04-24] MEDS: OLANZapine 5 MG TABLET PO (20:07)
[2022-04-24] MEDS: traZODone HCL 50 MG TABLET PO (20:07)
[2022-04-25 09:30] VITALS: BP 140/62; PULSE 63; RESP 18; TEMP 36.8; O2SAT 94
[2022-04-25] MEDS: hydroCHLOROthiazide 12.5 MG TABLET PO (09:32)
--- NOTE | 2022-04-25 16:34 | HO.PSYCHPN ---
Subjective Subjective Date of Service: 04/25/22 Reason For Visit: Mood Subjective Notes: Section 7 and Section 8 Interim History: The nursing staff reported the patient had been compliant with treatment, no new symptoms. On interview the patient complains of toothache and I explained her that I discussed with the nurse supervisor corduroy cutting about her needs and we will try to find out how can we help her. Mental Status Exam Mental Status Exam Patient Appearance: Appropriate Patient Orientation: Person and Situation Level of Consciousness: Awake and Appropriate Patient Behavior: Guarded and Passive Mood Description: Withdrawn Affect Description: Constricted Patient Cognition Impaired: Yes Ability to Follow Directions: Good Speech Pattern: Clear Hallucinations: None Delusions: Paranoid Ideation Thought Process: Distracted Thought Content: positive for [place] and positive for [place] Judgement: Fair Diagnostics Vital Signs (24Hr): Vital Signs - 24 hr 04/24/22 18:00 04/25/22 09:30 Temperature 97.6 F 98.3 F Pulse Rate 67 63 Respiratory Rate 17 18 Blood Pressure 175/77 H 140/62 H Pulse Oximetry 94 94 Oxygen Delivery Method Room Air Room Air BMI result Body Mass Index 26.9 Labs 01/20/22 08:00 01/20/22 08:00 Imaging Radiology Impressions: ITS Impressions Chest CT 01/10/22 15:11 IMPRESSION: Bilateral small pulmonary nodules, left greater than right. Biapical pleural and parenchymal scarring. 1.1 x 1.4 cm heterogeneous or semisolid right apical nodule, question related to pleural and parenchymal scarring. 1.5 cm partially calcified left thyroid nodule. Based on patient age in size, this does not meet criteria for follow-up. Moderate coronary artery calcification. Fleischner guidelines were followed. Chest CT 04/01/22 14:44 IMPRESSION: *Unchanged semisolid 1.5 cm x 1.0 cm nodule within the apex of the right pulmonary lobe. Per the Fleischner Society 2017 revised guidelines, as clinically indicated recommend annual screening CT to demonstrate stability to demonstrate ultimate 5 year stability. *Unchanged small number of scattered solid pulmonary nodules ranging in size up to 6 mm diameter stable compared with 01/10/2022. *Moderate-marked diffuse coronary artery calcific atherosclerosis. *Partially visualized posttreatment related changes of the right breast. Head CT 04/18/22 09:11 IMPRESSION: No acute intracranial pathology. Medications Medications Current Medications Acetaminophen (Acetaminophen 325 Mg Tablet) 650 mg PO Q6H PRN PRN Reason: Pain, Moderate (Pain Scale 4-6 Last Admin: 04/22/22 22:42 Dose: 650 mg Amlodipine Besylate (Amlodipine Besylate 10 Mg Tablet) 10 mg PO BEDTIME TIMOTEO; Protocol Last Admin: 04/24/22 20:07 Dose: 10 mg Bacitracin (Bacitracin Oint 14 Gm Tube) 1 appl TOPICAL BID TIMOTEO; Protocol Last Admin: 04/25/22 09:36 Dose: Not Given Hydrochlorothiazide (Hydrochlorothiazide 12.5 Mg Tablet) 12.5 mg PO DAILY TIMOTEO; Protocol Last Admin: 04/25/22 09:32 Dose: 12.5 mg Hydrocortisone (Hydrocortisone 1 % Cream 28.35 Gm Tube) 1 appl TOPICAL DAILY PRN PRN Reason: pruritic skin Ibuprofen (Ibuprofen 600 Mg Tablet) 600 mg PO Q8H PRN PRN Reason: pain not relieved by tylenol Olanzapine (Olanzapine 5 Mg Tablet) 5 mg PO BEDTIME TIMOTEO Last Admin: 04/24/22 20:07 Dose: 5 mg Olanzapine (Olanzapine 10 Mg Vial) 5 mg IM BEDTIME PRN PRN Reason: refusal of PO Last Admin: 04/04/22 23:12 Dose: 5 mg Oxybutynin Chloride (Oxybutynin Chloride Er 5 Mg Tab.Er.24) 10 mg PO DAILY TIMOTEO Last Admin: 04/25/22 09:31 Dose: 10 mg Trazodone HCl (Trazodone Hcl 50 Mg Tablet) 50 mg PO BEDTIME PRN PRN Reason: insomnia Last Admin: 04/24/22 20:07 Dose: 50 mg Allergies Allergies Allergy/AdvReac Type Severity Reaction Status Date / Time codeine Allergy Unknown Unknown Verified 12/15/21 18:29 sulfadiazine Allergy Unknown Unknown Verified 12/15/21 18:29 Assessment & Plan Assessment & Plan (1) Urinary incontinence: Status: Acute Code(s): R32 - Unspecified urinary incontinence Plan If able to obtain urine for urinalysis and culture to further assess and evaluate for possible UTI Post void residuals to be obtained and tracked to be sure patient is not retaining versus incomplete bladder emptying Toilet scheduling and timed voiding Given patient is reporting unsensed urination unlikely urological medications for incontinence will be beneficial at this time. Psychiatry Plan 1. Continue same treatment, 2. Waiting for placement Reason for contiued inpatient stay Substantial Risk for: inability to function, rapid decompensation and med/psych decompensation Time Spent With Patient Time: Total time managing care of this patient today __20__ minutes.
[2022-04-25 18:00] VITALS: BP 160/69; PULSE 68; RESP 17; TEMP 36.8; O2SAT 97
[2022-04-25] MEDS: traZODone HCL 50 MG TABLET PO (20:09)
[2022-04-25] MEDS: OLANZapine 5 MG TABLET PO (20:09)
[2022-04-25] MEDS: amLODIPine Besylate 10 MG TABLET PO (20:09)
[2022-04-26 08:25] VITALS: BP 144/65; PULSE 71; RESP 18; TEMP 36.4; O2SAT 94
[2022-04-26] MEDS: hydroCHLOROthiazide 12.5 MG TABLET PO (08:29)
--- NOTE | 2022-04-26 15:19 | HO.PSYCHPN ---
Subjective Subjective Date of Service: 04/26/22 Reason For Visit: Mood Subjective Notes: Conditional Voluntary Interim History: The nursing staff reported the patient had been compliant with treatment. On interview the patient complains of toothache. I spoke with Nette regarding the needs of other further services that we cannot provide here and we will try to work on a solution. Mental Status Exam Mental Status Exam Patient Appearance: Appropriate Patient Orientation: Person and Situation Level of Consciousness: Awake Patient Behavior: Guarded and Passive Mood Description: Withdrawn Affect Description: Constricted Patient Cognition Impaired: Yes Ability to Follow Directions: Good Speech Pattern: Clear Hallucinations: None Delusions: Paranoid Ideation Thought Process: Illogical and Distracted Thought Content: positive for [place] and positive for [place] Oriented Judgement: Poor Diagnostics Vital Signs (24Hr): Vital Signs - 24 hr 04/25/22 18:00 04/26/22 08:25 Temperature 98.3 F 97.6 F Pulse Rate 68 71 Respiratory Rate 17 18 Blood Pressure 160/69 H 144/65 H Pulse Oximetry 97 94 Oxygen Delivery Method Room Air Room Air BMI result Body Mass Index 26.9 Labs 01/20/22 08:00 01/20/22 08:00 Imaging Radiology Impressions: ITS Impressions Chest CT 01/10/22 15:11 IMPRESSION: Bilateral small pulmonary nodules, left greater than right. Biapical pleural and parenchymal scarring. 1.1 x 1.4 cm heterogeneous or semisolid right apical nodule, question related to pleural and parenchymal scarring. 1.5 cm partially calcified left thyroid nodule. Based on patient age in size, this does not meet criteria for follow-up. Moderate coronary artery calcification. Fleischner guidelines were followed. Chest CT 04/01/22 14:44 IMPRESSION: *Unchanged semisolid 1.5 cm x 1.0 cm nodule within the apex of the right pulmonary lobe. Per the Fleischner Society 2017 revised guidelines, as clinically indicated recommend annual screening CT to demonstrate stability to demonstrate ultimate 5 year stability. *Unchanged small number of scattered solid pulmonary nodules ranging in size up to 6 mm diameter stable compared with 01/10/2022. *Moderate-marked diffuse coronary artery calcific atherosclerosis. *Partially visualized posttreatment related changes of the right breast. Head CT 04/18/22 09:11 IMPRESSION: No acute intracranial pathology. Medications Medications Current Medications Acetaminophen (Acetaminophen 325 Mg Tablet) 650 mg PO Q6H PRN PRN Reason: Pain, Moderate (Pain Scale 4-6 Last Admin: 04/22/22 22:42 Dose: 650 mg Amlodipine Besylate (Amlodipine Besylate 10 Mg Tablet) 10 mg PO BEDTIME TIMOTEO; Protocol Last Admin: 04/25/22 20:09 Dose: 10 mg Bacitracin (Bacitracin Oint 14 Gm Tube) 1 appl TOPICAL BID TIMOTEO; Protocol Last Admin: 04/26/22 08:33 Dose: Not Given Hydrochlorothiazide (Hydrochlorothiazide 12.5 Mg Tablet) 12.5 mg PO DAILY TIMOTEO; Protocol Last Admin: 04/26/22 08:29 Dose: 12.5 mg Hydrocortisone (Hydrocortisone 1 % Cream 28.35 Gm Tube) 1 appl TOPICAL DAILY PRN PRN Reason: pruritic skin Ibuprofen (Ibuprofen 600 Mg Tablet) 600 mg PO Q8H PRN PRN Reason: pain not relieved by tylenol Olanzapine (Olanzapine 5 Mg Tablet) 5 mg PO BEDTIME TIMOTEO Last Admin: 04/25/22 20:09 Dose: 5 mg Olanzapine (Olanzapine 10 Mg Vial) 5 mg IM BEDTIME PRN PRN Reason: refusal of PO Last Admin: 04/04/22 23:12 Dose: 5 mg Oxybutynin Chloride (Oxybutynin Chloride Er 5 Mg Tab.Er.24) 10 mg PO DAILY TIMOTEO Last Admin: 04/26/22 08:29 Dose: 10 mg Trazodone HCl (Trazodone Hcl 50 Mg Tablet) 50 mg PO BEDTIME PRN PRN Reason: insomnia Last Admin: 04/25/22 20:09 Dose: 50 mg Allergies Allergies Allergy/AdvReac Type Severity Reaction Status Date / Time codeine Allergy Unknown Unknown Verified 12/15/21 18:29 sulfadiazine Allergy Unknown Unknown Verified 12/15/21 18:29 Assessment & Plan Assessment & Plan (1) Urinary incontinence: Status: Acute Code(s): R32 - Unspecified urinary incontinence Plan If able to obtain urine for urinalysis and culture to further assess and evaluate for possible UTI Post void residuals to be obtained and tracked to be sure patient is not retaining versus incomplete bladder emptying Toilet scheduling and timed voiding Given patient is reporting unsensed urination unlikely urological medications for incontinence will be beneficial at this time. Psychiatry Plan 1. Continue same treatment, 2. Waiting for placement Reason for contiued inpatient stay Substantial Risk for: inability to function, rapid decompensation and med/psych decompensation Time Spent With Patient Time: Total time managing care of this patient today __20__ minutes.
[2022-04-26 18:00] VITALS: BP 143/65; PULSE 66; RESP 18; TEMP 36.6; O2SAT 96
[2022-04-26] MEDS: Bacitracin Oint 14 GM TUBE 1 APPL TOPICAL (19:44)
[2022-04-26] MEDS: amLODIPine Besylate 10 MG TABLET PO (19:44)
[2022-04-26] MEDS: traZODone HCL 50 MG TABLET PO (19:44)
[2022-04-26] MEDS: OLANZapine 5 MG TABLET PO (19:45)
[2022-04-27 06:00] VITALS: BP 148/72; PULSE 67; RESP 18; TEMP 36.7; O2SAT 95
[2022-04-27] MEDS: hydroCHLOROthiazide 12.5 MG TABLET PO (09:50)
--- NOTE | 2022-04-27 11:42 | P.PNPSI_ITS ---
Subjective Subjective Date of Service: 04/27/22 Reason For Visit: Mood Subjective Notes: Conditional Voluntary Interim History: The nursing staff reported the patient had been compliant with treatment no new symptoms. On interview the patient denies new symptoms, we will do COVID testing right now. Mental Status Exam Mental Status Exam Patient Appearance: Appropriate Patient Orientation: Person and Situation Level of Consciousness: Awake and Appropriate Patient Behavior: Cooperative and Passive Mood Description: Withdrawn Affect Description: Constricted Patient Cognition Impaired: Yes Ability to Follow Directions: Fair Speech Pattern: Clear Hallucinations: None Delusions: Paranoid Ideation Thought Process: Distracted and Slowed Thinking Thought Content: positive for [place] and positive for Circumstantial Judgement: Fair Diagnostics Vital Signs (24Hr): Vital Signs - 24 hr 04/26/22 18:00 04/27/22 06:00 Temperature 97.9 F 98.1 F Pulse Rate 66 67 Respiratory Rate 18 18 Blood Pressure 143/65 H 148/72 H Pulse Oximetry 96 95 Oxygen Delivery Method Room Air Room Air BMI result Body Mass Index 26.9 Labs 01/20/22 08:00 01/20/22 08:00 Imaging Radiology Impressions: ITS Impressions Chest CT 01/10/22 15:11 IMPRESSION: Bilateral small pulmonary nodules, left greater than right. Biapical pleural and parenchymal scarring. 1.1 x 1.4 cm heterogeneous or semisolid right apical nodule, question related to pleural and parenchymal scarring. 1.5 cm partially calcified left thyroid nodule. Based on patient age in size, this does not meet criteria for follow-up. Moderate coronary artery calcification. Fleischner guidelines were followed. Chest CT 04/01/22 14:44 IMPRESSION: *Unchanged semisolid 1.5 cm x 1.0 cm nodule within the apex of the right pulmonary lobe. Per the Fleischner Society 2017 revised guidelines, as clinically indicated recommend annual screening CT to demonstrate stability to demonstrate ultimate 5 year stability. *Unchanged small number of scattered solid pulmonary nodules ranging in size up to 6 mm diameter stable compared with 01/10/2022. *Moderate-marked diffuse coronary artery calcific atherosclerosis. *Partially visualized posttreatment related changes of the right breast. Head CT 04/18/22 09:11 IMPRESSION: No acute intracranial pathology. Medications Medications Current Medications Acetaminophen (Acetaminophen 325 Mg Tablet) 650 mg PO Q6H PRN PRN Reason: Pain, Moderate (Pain Scale 4-6 Last Admin: 04/22/22 22:42 Dose: 650 mg Amlodipine Besylate (Amlodipine Besylate 10 Mg Tablet) 10 mg PO BEDTIME TIMOTEO; Protocol Last Admin: 04/26/22 19:44 Dose: 10 mg Bacitracin (Bacitracin Oint 14 Gm Tube) 1 appl TOPICAL BID TIMOTEO; Protocol Last Admin: 04/26/22 19:44 Dose: 1 appl Hydrochlorothiazide (Hydrochlorothiazide 12.5 Mg Tablet) 12.5 mg PO DAILY TIMOTEO; Protocol Last Admin: 04/27/22 09:50 Dose: 12.5 mg Hydrocortisone (Hydrocortisone 1 % Cream 28.35 Gm Tube) 1 appl TOPICAL DAILY [place] N PRN Reason: pruritic skin Ibuprofen (Ibuprofen 600 Mg Tablet) 600 mg PO Q8H PRN PRN Reason: pain not relieved by tylenol Olanzapine (Olanzapine 5 Mg Tablet) 5 mg PO BEDTIME TIMOTEO Last Admin: 04/26/22 19:45 Dose: 5 mg Olanzapine (Olanzapine 10 Mg Vial) 5 mg IM BEDTIME PRN PRN Reason: refusal of PO Last Admin: 04/04/22 23:12 Dose: 5 mg Oxybutynin Chloride (Oxybutynin Chloride Er 5 Mg Tab.Er.24) 10 mg PO DAILY TIMOTEO Last Admin: 04/27/22 09:50 Dose: 10 mg Trazodone HCl (Trazodone Hcl 50 Mg Tablet) 50 mg PO BEDTIME PRN PRN Reason: insomnia Last Admin: 04/26/22 19:44 Dose: 50 mg Allergies Allergies Allergy/AdvReac Type Severity Reaction Status Date / Time codeine Allergy Unknown Unknown Verified 12/15/21 18:29 sulfadiazine Allergy Unknown Unknown Verified 12/15/21 18:29 Assessment & Plan Assessment & Plan (1) Urinary incontinence: Status: Acute Code(s): R32 - Unspecified urinary incontinence Plan If able to obtain urine for urinalysis and culture to further assess and evaluate for possible UTI Post void residuals to be obtained and tracked to be sure patient is not retaining versus incomplete bladder emptying Toilet scheduling and timed voiding Given patient is reporting unsensed urination unlikely urological medications for incontinence will be beneficial at this time. Psychiatry Plan 1. Continue same treatment, 2. Waiting for placement. 3. COVID testing today Reason for contiued inpatient stay Substantial Risk for: inability to function, rapid decompensation and med/psych decompensation Time Spent With Patient Time: Total time managing care of this patient today _20___ minutes.
[2022-04-27 12:17] LABS: COVID-19 Test Negative (Negative); IDNOW Serial# 08D9AD1C
[2022-04-27 19:05] VITALS: BP 142/74; PULSE 69; RESP 15; TEMP 37; O2SAT 96
[2022-04-27] MEDS: amLODIPine Besylate 10 MG TABLET PO (19:32)
[2022-04-27] MEDS: OLANZapine 5 MG TABLET PO (19:32)
[2022-04-28 06:00] VITALS: BP 140/63; PULSE 62; RESP 16; TEMP 36.1; O2SAT 96
[2022-04-28] MEDS: hydroCHLOROthiazide 12.5 MG TABLET PO (11:30)
--- NOTE | 2022-04-28 13:17 | HO.PSYCHPN ---
Subjective Subjective Date of Service: 04/28/22 Reason For Visit: Mood Interim History: The nursing staff reports no changes in her mental status so far she has tested negative to COVID. On interview the patient is pleasantly confused easily redirectable. Waiting for placement. Mental Status Exam Mental Status Exam Patient Appearance: Well Grooomed and Appropriate Patient Orientation: Person and Situation Level of Consciousness: Awake and Appropriate Patient Behavior: Guarded and Passive Mood Description: Withdrawn Affect Description: Calm Patient Cognition Impaired: Yes Ability to Follow Directions: Fair Speech Pattern: Clear Hallucinations: None Delusions: Not Present Thought Process: Distracted Thought Content: positive for [place] Judgement: Poor Diagnostics Vital Signs (24Hr): Vital Signs - 24 hr 04/27/22 19:05 04/28/22 06:00 Temperature 98.6 F 97.0 F Pulse Rate 69 62 Respiratory Rate 15 16 Blood Pressure 142/74 H 140/63 H Pulse Oximetry 96 96 Oxygen Delivery Method Room Air Room Air BMI result Body Mass Index 26.9 Labs 01/20/22 08:00 01/20/22 08:00 Labs: Laboratory Results - last 48 hr 04/27/22 11:05 COVID-19 ([facility]) Negative COVID-19 Clin Com See Note Imaging Radiology Impressions: ITS Impressions Chest CT 01/10/22 15:11 IMPRESSION: Bilateral small pulmonary nodules, left greater than right. Biapical pleural and parenchymal scarring. 1.1 x 1.4 cm heterogeneous or semisolid right apical nodule, question related to pleural and parenchymal scarring. 1.5 cm partially calcified left thyroid nodule. Based on patient age in size, this does not meet criteria for follow-up. Moderate coronary artery calcification. Fleischner guidelines were followed. Chest CT 04/01/22 14:44 IMPRESSION: *Unchanged semisolid 1.5 cm x 1.0 cm nodule within the apex of the right pulmonary lobe. Per the Fleischner Society 2017 revised guidelines, as clinically indicated recommend annual screening CT to demonstrate stability to demonstrate ultimate 5 year stability. *Unchanged small number of scattered solid pulmonary nodules ranging in size up to 6 mm diameter stable compared with 01/10/2022. *Moderate-marked diffuse coronary artery calcific atherosclerosis. *Partially visualized posttreatment related changes of the right breast. Head CT 04/18/22 09:11 IMPRESSION: No acute intracranial pathology. Medications Medications Current Medications Acetaminophen (Acetaminophen 325 Mg Tablet) 650 mg PO Q6H PRN PRN Reason: Pain, Moderate (Pain Scale 4-6 Last Admin: 04/22/22 22:42 Dose: 650 mg Amlodipine Besylate (Amlodipine Besylate 10 Mg Tablet) 10 mg PO BEDTIME TIMOTEO; Protocol Last Admin: 04/27/22 19:32 Dose: 10 mg Bacitracin (Bacitracin Oint 14 Gm Tube) 1 appl TOPICAL BID TIMOTEO; Protocol Last Admin: 04/28/22 11:31 Dose: Not Given Hydrochlorothiazide (Hydrochlorothiazide 12.5 Mg Tablet) 12.5 mg PO DAILY TIMOTEO; Protocol Last Admin: 04/28/22 11:30 Dose: 12.5 mg Hydrocortisone (Hydrocortisone 1 % Cream 28.35 Gm Tube) 1 appl TOPICAL DAILY PRN PRN Reason: pruritic skin Ibuprofen (Ibuprofen 600 Mg Tablet) 600 mg PO Q8H PRN PRN Reason: pain not relieved by tylenol Olanzapine (Olanzapine 5 Mg Tablet) 5 mg PO BEDTIME TIMOTEO Last Admin: 04/27/22 19:32 Dose: 5 mg Olanzapine (Olanzapine 10 Mg Vial) 5 mg IM BEDTIME PRN PRN Reason: refusal of PO Last Admin: 04/04/22 23:12 Dose: 5 mg Oxybutynin Chloride (Oxybutynin Chloride Er 5 Mg Tab.Er.24) 10 mg PO DAILY TIMOTEO Last Admin: 04/28/22 11:30 Dose: 10 mg Trazodone HCl (Trazodone Hcl 50 Mg Tablet) 50 mg PO BEDTIME PRN PRN Reason: insomnia Last Admin: 04/26/22 19:44 Dose: 50 mg Allergies Allergies Allergy/AdvReac Type Severity Reaction Status Date / Time codeine Allergy Unknown Unknown Verified 12/15/21 18:29 sulfadiazine Allergy Unknown Unknown Verified 12/15/21 18:29 Assessment & Plan Assessment & Plan (1) Urinary incontinence: Status: Acute Code(s): R32 - Unspecified urinary incontinence Plan If able to obtain urine for urinalysis and culture to further assess and evaluate for possible UTI Post void residuals to be obtained and tracked to be sure patient is not retaining versus incomplete bladder emptying Toilet scheduling and timed voiding Given patient is reporting unsensed urination unlikely urological medications for incontinence will be beneficial at this time. Psychiatry Plan 1. Continue same treatment, 2. Waiting for placement. 3. COVID testing today Reason for contiued inpatient stay Substantial Risk for: inability to function, rapid decompensation and med/psych decompensation Time Spent With Patient Time: Total time managing care of this patient today __20__ minutes.
[2022-04-28 17:55] VITALS: BP 133/63; PULSE 71; RESP 18; TEMP 36.3; O2SAT 94
[2022-04-28] MEDS: OLANZapine 5 MG TABLET PO (19:56)
[2022-04-28] MEDS: traZODone HCL 50 MG TABLET PO (19:56)
[2022-04-28] MEDS: amLODIPine Besylate 10 MG TABLET PO (19:56)
[2022-04-29] MEDS: Acetaminophen 325 MG TABLET 650 MG PO (02:13)
[2022-04-29 06:00] VITALS: BP 138/72; PULSE 72; RESP 16; TEMP 36.5; O2SAT 96
[2022-04-29] MEDS: hydroCHLOROthiazide 12.5 MG TABLET PO (08:41)
--- NOTE | 2022-04-29 12:48 | HO.PSYCHPN ---
Subjective Subjective Date of Service: 04/29/22 Reason For Visit: Mood Interim History: The nursing staff reports no changes in her mental status; she has tested negative to COVID. On interview the patient is pleasantly confused and easily redirectable. No changes. Waiting for placement. Medication Compliance: Yes Side effects from medications: No Attending Groups: No Review of Systems Acute medical concerns: No Medical Review of Systems: unchanged Review of Systems Review of Systems nothing acute- toothache being managed Yes all other systems are reviewed and are negative and Unobtainable due to mental status Constitutional: Reports no additional constitutional complaints Eyes: Reports no additional eye complaints Reports system reviewed and no additional complaints, except as documented Cardiovascular: Reports no additional cardiovascular complaints Respiratory: Reports no additional respiratory complaints Gastrointestinal: Reports no additional gastrointestinal complaints Musculoskeletal: Reports no additional musculoskeletal complaints Skin/Breast: Reports system reviewed and no additional complaints, except as docu Reports system reviewed and no additional complaints, except as documented and Reports confusion (at times speaking randomly and changing subject) Psychiatric: Reports no additional psychiatric complaints, Reports as per HPI and Reports confusion (at times speaking randomly and changing subject) Endocrine: Reports no additional endocrine complaints Hematologic/Lymphatic: Reports no additional hematologic/lymphatic complaints Allergic/Immunologic: Reports no additional allergic/immunologic complaints Mental Status Exam Mental Status Exam Narrative: seen in day area. Appropriately dressed and fair hygiene. Organized. Denied depression, SI or HI. No overt psychosis noted. No agitation. Insight and judgment fair Patient Appearance: Well Grooomed and Appropriate Patient Orientation: Person and Situation Level of Consciousness: Awake and Appropriate Patient Behavior: Guarded and Passive Mood Description: Withdrawn Affect Description: Calm Patient Cognition Impaired: Yes Ability to Follow Directions: Fair Speech Pattern: Clear Memory Description: Remote Impaired and Episodic Impaired Diagnostics Vital Signs (24Hr): Vital Signs - 24 hr 04/28/22 17:55 04/29/22 06:00 Temperature 97.3 F 97.7 F Pulse Rate 71 72 Respiratory Rate 18 16 Blood Pressure 133/63 138/72 Pulse Oximetry 94 96 Oxygen Delivery Method Room Air Room Air BMI result Body Mass Index 26.9 Labs 01/20/22 08:00 01/20/22 08:00 Imaging Radiology Impressions: ITS Impressions Chest CT 01/10/22 15:11 IMPRESSION: Bilateral small pulmonary nodules, left greater than right. Biapical pleural and parenchymal scarring. 1.1 x 1.4 cm heterogeneous or semisolid right apical nodule, question related to pleural and parenchymal scarring. 1.5 cm partially calcified left thyroid nodule. Based on patient age in size, this does not meet criteria for follow-up. Moderate coronary artery calcification. Fleischner guidelines were followed. Chest CT 04/01/22 14:44 IMPRESSION: *Unchanged semisolid 1.5 cm x 1.0 cm nodule within the apex of the right pulmonary lobe. Per the Fleischner Society 2017 revised guidelines, as clinically indicated recommend annual screening CT to demonstrate stability to demonstrate ultimate 5 year stability. *Unchanged small number of scattered solid pulmonary nodules ranging in size up to 6 mm diameter stable compared with 01/10/2022. *Moderate-marked diffuse coronary artery calcific atherosclerosis. *Partially visualized posttreatment related changes of the right breast. Head CT 04/18/22 09:11 IMPRESSION: No acute intracranial pathology. Medications Medications Current Medications Acetaminophen (Acetaminophen 325 Mg Tablet) 650 mg PO Q6H PRN PRN Reason: Pain, Moderate (Pain Scale 4-6 Last Admin: 04/29/22 02:13 Dose: 650 mg Amlodipine Besylate (Amlodipine Besylate 10 Mg Tablet) 10 mg PO BEDTIME TIMOTEO; Protocol Last Admin: 04/28/22 19:56 Dose: 10 mg Bacitracin (Bacitracin Oint 14 Gm Tube) 1 appl TOPICAL BID TIMOTEO; Protocol Last Admin: 04/28/22 20:00 Dose: Not Given Hydrochlorothiazide (Hydrochlorothiazide 12.5 Mg Tablet) 12.5 mg PO DAILY TIMOTEO; Protocol Last Admin: 04/29/22 08:41 Dose: 12.5 mg Hydrocortisone (Hydrocortisone 1 % Cream 28.35 Gm Tube) 1 appl TOPICAL DAILY PRN PRN Reason: pruritic skin Ibuprofen (Ibuprofen 600 Mg Tablet) 600 mg PO Q8H PRN PRN Reason: pain not relieved by tylenol Olanzapine (Olanzapine 5 Mg Tablet) 5 mg PO BEDTIME TIMOTEO Last Admin: 04/28/22 19:56 Dose: 5 mg Olanzapine (Olanzapine 10 Mg Vial) 5 mg IM BEDTIME PRN PRN Reason: refusal of PO Last Admin: 04/04/22 23:12 Dose: 5 mg Oxybutynin Chloride (Oxybutynin Chloride Er 5 Mg Tab.Er.24) 10 mg PO DAILY TIMOTEO Last Admin: 04/29/22 08:40 Dose: 10 mg Trazodone HCl (Trazodone Hcl 50 Mg Tablet) 50 mg PO BEDTIME PRN PRN Reason: insomnia Last Admin: 04/28/22 19:56 Dose: 50 mg Allergies Allergies Allergy/AdvReac Type Severity Reaction Status Date / Time codeine Allergy Unknown Unknown Verified 12/15/21 18:29 sulfadiazine Allergy Unknown Unknown Verified 12/15/21 18:29 Assessment & Plan Assessment & Plan (1) Urinary incontinence: Status: Acute Code(s): R32 - Unspecified urinary incontinence Plan If able to obtain urine for urinalysis and culture to further assess and evaluate for possible UTI Post void residuals to be obtained and tracked to be sure patient is not retaining versus incomplete bladder emptying Toilet scheduling and timed voiding Given patient is reporting unsensed urination unlikely urological medications for incontinence will be beneficial at this time. Psychiatry Plan 1. Continue same treatment, 2. Waiting for placement. Reason for contiued inpatient stay Substantial Risk for: inability to function Time Spent With Patient Time: Total time managing care of this patient today ____ minutes.
[2022-04-29 19:45] VITALS: BP 142/72; PULSE 69; RESP 18; TEMP 36.6; O2SAT 96
[2022-04-29] MEDS: OLANZapine 5 MG TABLET PO (19:55)
[2022-04-29] MEDS: traZODone HCL 50 MG TABLET PO (19:56)
[2022-04-29] MEDS: amLODIPine Besylate 10 MG TABLET PO (19:56)
[2022-04-30 07:30] VITALS: BP 140/74; PULSE 68; RESP 16; TEMP 36.6; O2SAT 96
[2022-04-30] MEDS: hydroCHLOROthiazide 12.5 MG TABLET PO (08:12)
--- NOTE | 2022-04-30 12:26 | HO.PSYCHPN ---
Subjective Subjective Date of Service: 04/30/22 Reason For Visit: Mood Interim History: The nursing staff reports no changes in her mental status; she has tested negative to COVID. On interview the patient is pleasantly confused and easily redirectable. No changes. Waiting for placement. Medication Compliance: Yes Side effects from medications: No Attending Groups: No Review of Systems Acute medical concerns: No Review of Systems Review of Systems nothing acute- toothache being managed Yes all other systems are reviewed and are negative and Unobtainable due to mental status Constitutional: Reports no additional constitutional complaints Eyes: Reports no additional eye complaints Reports system reviewed and no additional complaints, except as documented Cardiovascular: Reports no additional cardiovascular complaints Respiratory: Reports no additional respiratory complaints Gastrointestinal: Reports no additional gastrointestinal complaints Musculoskeletal: Reports no additional musculoskeletal complaints Skin/Breast: Reports system reviewed and no additional complaints, except as docu Reports system reviewed and no additional complaints, except as documented and Reports confusion (at times speaking randomly and changing subject) Psychiatric: Reports no additional psychiatric complaints, Reports as per HPI and Reports confusion (at times speaking randomly and changing subject) Endocrine: Reports no additional endocrine complaints Hematologic/Lymphatic: Reports no additional hematologic/lymphatic complaints Allergic/Immunologic: Reports no additional allergic/immunologic complaints Mental Status Exam Mental Status Exam Narrative: seen in day area. Appropriately dressed and fair hygiene. Organized. Denied depression, SI or HI. No overt psychosis noted. No agitation. Insight and judgment fair Patient Appearance: Well Grooomed and Appropriate Patient Orientation: Person and Situation Level of Consciousness: Awake and Appropriate Patient Behavior: Guarded and Passive Mood Description: Withdrawn Affect Description: Calm Patient Cognition Impaired: Yes Ability to Follow Directions: Fair Speech Pattern: Clear Memory Description: Remote Impaired and Episodic Impaired Diagnostics Vital Signs (24Hr): Vital Signs - 24 hr 04/29/22 19:45 04/30/22 07:30 Temperature 97.9 F 97.8 F Pulse Rate 69 68 Respiratory Rate 18 16 Blood Pressure 142/72 H 140/74 H Pulse Oximetry 96 96 Oxygen Delivery Method Room Air Room Air BMI result Body Mass Index 26.9 Labs 01/20/22 08:00 01/20/22 08:00 Imaging Radiology Impressions: ITS Impressions Chest CT 01/10/22 15:11 IMPRESSION: Bilateral small pulmonary nodules, left greater than right. Biapical pleural and parenchymal scarring. 1.1 x 1.4 cm heterogeneous or semisolid right apical nodule, question related to pleural and parenchymal scarring. 1.5 cm partially calcified left thyroid nodule. Based on patient age in size, this does not meet criteria for follow-up. Moderate coronary artery calcification. Fleischner guidelines were followed. Chest CT 04/01/22 14:44 IMPRESSION: *Unchanged semisolid 1.5 cm x 1.0 cm nodule within the apex of the right pulmonary lobe. Per the Fleischner Society 2017 revised guidelines, as clinically indicated recommend annual screening CT to demonstrate stability to demonstrate ultimate 5 year stability. *Unchanged small number of scattered solid pulmonary nodules ranging in size up to 6 mm diameter stable compared with 01/10/2022. *Moderate-marked diffuse coronary artery calcific atherosclerosis. *Partially visualized posttreatment related changes of the right breast. Head CT 04/18/22 09:11 IMPRESSION: No acute intracranial pathology. Medications Medications Current Medications Acetaminophen (Acetaminophen 325 Mg Tablet) 650 mg PO Q6H PRN PRN Reason: Pain, Moderate (Pain Scale 4-6 Last Admin: 04/29/22 02:13 Dose: 650 mg Amlodipine Besylate (Amlodipine Besylate 10 Mg Tablet) 10 mg PO BEDTIME TIMOTEO; Protocol Last Admin: 04/29/22 19:56 Dose: 10 mg Bacitracin (Bacitracin Oint 14 Gm Tube) 1 appl TOPICAL BID TIMOTEO; Protocol Last Admin: 04/30/22 08:13 Dose: Not Given Hydrochlorothiazide (Hydrochlorothiazide 12.5 Mg Tablet) 12.5 mg PO DAILY TIMOTEO; Protocol Last Admin: 04/30/22 08:12 Dose: 12.5 mg Hydrocortisone (Hydrocortisone 1 % Cream 28.35 Gm Tube) 1 appl TOPICAL DAILY PRN PRN Reason: pruritic skin Ibuprofen (Ibuprofen 600 Mg Tablet) 600 mg PO Q8H PRN PRN Reason: pain not relieved by tylenol Olanzapine (Olanzapine 5 Mg Tablet) 5 mg PO BEDTIME TIMOTEO Last Admin: 04/29/22 19:55 Dose: 5 mg Olanzapine (Olanzapine 10 Mg Vial) 5 mg IM BEDTIME PRN PRN Reason: refusal of PO Last Admin: 04/04/22 23:12 Dose: 5 mg Oxybutynin Chloride (Oxybutynin Chloride Er 5 Mg Tab.Er.24) 10 mg PO DAILY TIMOTEO Last Admin: 04/30/22 08:12 Dose: 10 mg Trazodone HCl (Trazodone Hcl 50 Mg Tablet) 50 mg PO BEDTIME PRN PRN Reason: insomnia Last Admin: 04/29/22 19:56 Dose: 50 mg Allergies Allergies Allergy/AdvReac Type Severity Reaction Status Date / Time codeine Allergy Unknown Unknown Verified 12/15/21 18:29 sulfadiazine Allergy Unknown Unknown Verified 12/15/21 18:29 Assessment & Plan Assessment & Plan (1) Urinary incontinence: Status: Acute Code(s): R32 - Unspecified urinary incontinence Plan Plan 1. Continue same treatment, 2. Waiting for placement. Reason for contiued inpatient stay Substantial Risk for: inability to function and med/psych decompensation Time Spent With Patient Time: Total time managing care of this patient today ____ minutes.
[2022-04-30 18:00] VITALS: BP 139/68; PULSE 74; RESP 18; TEMP 36.8; O2SAT 94
[2022-04-30] MEDS: OLANZapine 5 MG TABLET PO (19:50)
[2022-04-30] MEDS: amLODIPine Besylate 10 MG TABLET PO (19:50)
[2022-04-30] MEDS: Bacitracin Oint 14 GM TUBE 1 APPL TOPICAL (19:51)
[2022-04-30] MEDS: traZODone HCL 50 MG TABLET PO (19:51)
[2022-04-30] MEDS: Acetaminophen 325 MG TABLET 650 MG PO (22:30)
--- NOTE | 2022-05-01 14:10 | HO.PSYCHPN ---
Subjective Subjective Date of Service: 05/01/22 Reason For Visit: Mood Subjective Notes: Section 7 and Section 8 Interim History: The nursing staff reported that the patient had the shower last night and she agreed to have some of her her treatment down. So far her COVID test is negative. On interview the patient denies new symptoms she complains of toothache and I made aware the administration that we needs to have a dentist consult. I ordered x-rays to see if there is abscess on her molars. Mental Status Exam Mental Status Exam Patient Appearance: Appropriate Patient Orientation: Person and Situation Level of Consciousness: Awake and Appropriate Patient Behavior: Guarded and Passive Mood Description: Constricted Affect Description: Labile Patient Cognition Impaired: Yes Ability to Follow Directions: Good Speech Pattern: Clear Hallucinations: None Delusions: Not Present Thought Process: Linear Thought Content: positive for Goal Oriented Judgement: Fair Diagnostics Vital Signs (24Hr): Vital Signs - 24 hr 04/30/22 18:00 Temperature 98.2 F Pulse Rate 74 Respiratory Rate 18 Blood Pressure 139/68 Pulse Oximetry 94 Oxygen Delivery Method Room Air BMI result Body Mass Index 26.9 Labs 01/20/22 08:00 01/20/22 08:00 Imaging Radiology Impressions: ITS Impressions Chest CT 01/10/22 15:11 IMPRESSION: Bilateral small pulmonary nodules, left greater than right. Biapical pleural and parenchymal scarring. 1.1 x 1.4 cm heterogeneous or semisolid right apical nodule, question related to pleural and parenchymal scarring. 1.5 cm partially calcified left thyroid nodule. Based on patient age in size, this does not meet criteria for follow-up. Moderate coronary artery calcification. Fleischner guidelines were followed. Chest CT 04/01/22 14:44 IMPRESSION: *Unchanged semisolid 1.5 cm x 1.0 cm nodule within the apex of the right pulmonary lobe. Per the Fleischner Society 2017 revised guidelines, as clinically indicated recommend annual screening CT to demonstrate stability to demonstrate ultimate 5 year stability. *Unchanged small number of scattered solid pulmonary nodules ranging in size up to 6 mm diameter stable compared with 01/10/2022. *Moderate-marked diffuse coronary artery calcific atherosclerosis. *Partially visualized posttreatment related changes of the right breast. Head CT 04/18/22 09:11 IMPRESSION: No acute intracranial pathology. Medications Medications Current Medications Acetaminophen (Acetaminophen 325 Mg Tablet) 650 mg PO Q6H PRN PRN Reason: Pain, Moderate (Pain Scale 4-6 Last Admin: 04/30/22 22:30 Dose: 650 mg Amlodipine Besylate (Amlodipine Besylate 10 Mg Tablet) 10 mg PO BEDTIME TIMOTEO; Protocol Last Admin: 04/30/22 19:50 Dose: 10 mg Bacitracin (Bacitracin Oint 14 Gm Tube) 1 appl TOPICAL BID TIMOTEO; Protocol Last Admin: 05/01/22 10:19 Dose: Not Given Hydrochlorothiazide (Hydrochlorothiazide 12.5 Mg Tablet) 12.5 mg PO DAILY TIMOTEO; Protocol Last Admin: 05/01/22 10:19 Dose: Not Given Hydrocortisone (Hydrocortisone 1 % Cream 28.35 Gm Tube) 1 appl TOPICAL DAILY PRN PRN Reason: pruritic skin Ibuprofen (Ibuprofen 600 Mg Tablet) 600 mg PO Q8H PRN PRN Reason: pain not relieved by tylenol Olanzapine (Olanzapine 5 Mg Tablet) 5 mg PO BEDTIME TIMOTEO Last Admin: 04/30/22 19:50 Dose: 5 mg Olanzapine (Olanzapine 10 Mg Vial) 5 mg IM BEDTIME PRN PRN Reason: refusal of PO Last Admin: 04/04/22 23:12 Dose: 5 mg Oxybutynin Chloride (Oxybutynin Chloride Er 5 Mg Tab.Er.24) 10 mg PO DAILY TIMOTEO Last Admin: 05/01/22 10:19 Dose: Not Given Trazodone HCl (Trazodone Hcl 50 Mg Tablet) 50 mg PO BEDTIME PRN PRN Reason: insomnia Last Admin: 04/30/22 19:51 Dose: 50 mg Allergies Allergies Allergy/AdvReac Type Severity Reaction Status Date / Time codeine Allergy Unknown Unknown Verified 12/15/21 18:29 sulfadiazine Allergy Unknown Unknown Verified 12/15/21 18:29 Assessment & Plan Assessment & Plan (1) Urinary incontinence: Status: Acute Code(s): R32 - Unspecified urinary incontinence Plan Plan 1. Continue same treatment, 2. Waiting for placement. 3. X-ray head and mouth. Reason for contiued inpatient stay Substantial Risk for: inability to function, rapid decompensation and med/psych decompensation Time Spent With Patient Time: Total time managing care of this patient today ____ minutes.
[2022-05-01 18:00] VITALS: BP 144/72; PULSE 69; RESP 17; TEMP 36.2; O2SAT 94
[2022-05-01] MEDS: amLODIPine Besylate 10 MG TABLET PO (19:46)
[2022-05-01] MEDS: Acetaminophen 325 MG TABLET 650 MG PO (19:47)
[2022-05-01] MEDS: Bacitracin Oint 14 GM TUBE 1 APPL TOPICAL (19:47)
[2022-05-01] MEDS: OLANZapine 5 MG TABLET PO (19:47)
[2022-05-01] MEDS: traZODone HCL 50 MG TABLET PO (22:10)
[2022-05-02 09:50] VITALS: BP 146/65; PULSE 82; RESP 16; TEMP 37; O2SAT 94
[2022-05-02] MEDS: hydroCHLOROthiazide 12.5 MG TABLET PO (10:00)
--- NOTE | 2022-05-02 12:17 | P.PNPSI_ITS ---
Subjective Subjective Date of Service: 05/02/22 Reason For Visit: Mood Subjective Notes: Conditional Voluntary Interim History: Staff reported the patient had been cooperative and pleasant, compliant with treatment. Today we we could arrange a visit to the dentist, the patient is cooperative and pleasant, willing to be checked. On interview denies new symptoms. She is aware that her consult is tomorrow at 3:30pm. Mental Status Exam Mental Status Exam Patient Appearance: Appropriate Patient Orientation: Person and Situation Level of Consciousness: Awake and Appropriate Patient Behavior: Guarded and Passive Mood Description: Withdrawn Affect Description: Constricted Patient Cognition Impaired: Yes Ability to Follow Directions: Good Speech Pattern: Clear Hallucinations: None Delusions: Paranoid Ideation Thought Process: Distracted Thought Content: positive for [place] and positive for Circumstantial Judgement: Poor Diagnostics Vital Signs (24Hr): Vital Signs - 24 hr 05/01/22 18:00 05/02/22 09:50 Temperature 97.2 F 98.6 F Pulse Rate 69 82 Respiratory Rate 17 16 Blood Pressure 144/72 H 146/65 H Pulse Oximetry 94 94 Oxygen Delivery Method Room Air Room Air BMI result Body Mass Index 26.9 Labs 01/20/22 08:00 01/20/22 08:00 Imaging Radiology Impressions: ITS Impressions Chest CT 01/10/22 15:11 IMPRESSION: Bilateral small pulmonary nodules, left greater than right. Biapical pleural and parenchymal scarring. 1.1 x 1.4 cm heterogeneous or semisolid right apical nodule, question related to pleural and parenchymal scarring. 1.5 cm partially calcified left thyroid nodule. Based on patient age in size, this does not meet criteria for follow-up. Moderate coronary artery calcification. Fleischner guidelines were followed. Chest CT 04/01/22 14:44 IMPRESSION: *Unchanged semisolid 1.5 cm x 1.0 cm nodule within the apex of the right pulmonary lobe. Per the Fleischner Society 2017 revised guidelines, as clinically indicated recommend annual screening CT to demonstrate stability to demonstrate ultimate 5 year stability. *Unchanged small number of scattered solid pulmonary nodules ranging in size up to 6 mm diameter stable compared with 01/10/2022. *Moderate-marked diffuse coronary artery calcific atherosclerosis. *Partially visualized posttreatment related changes of the right breast. Head CT 04/18/22 09:11 IMPRESSION: No acute intracranial pathology. Medications Medications Current Medications Acetaminophen (Acetaminophen 325 Mg Tablet) 650 mg PO Q6H PRN PRN Reason: Pain, Moderate (Pain Scale 4-6 Last Admin: 05/01/22 19:47 Dose: 650 mg Amlodipine Besylate (Amlodipine Besylate 10 Mg Tablet) 10 mg PO BEDTIME TIMOTEO; Protocol Last Admin: 05/01/22 19:46 Dose: 10 mg Hydrochlorothiazide (Hydrochlorothiazide 12.5 Mg Tablet) 12.5 mg PO DAILY TIMOTEO; Protocol Last Admin: 05/02/22 10:00 Dose: 12.5 mg Hydrocortisone (Hydrocortisone 1 % Cream 28.35 Gm Tube) 1 appl TOPICAL DAILY PRN PRN Reason: pruritic skin Ibuprofen (Ibuprofen 600 Mg Tablet) 600 mg PO Q8H PRN PRN Reason: pain not relieved by tylenol Olanzapine (Olanzapine 5 Mg Tablet) 5 mg PO BEDTIME TIMOTEO Last Admin: 05/01/22 19:47 Dose: 5 mg Olanzapine (Olanzapine 10 Mg Vial) 5 mg IM BEDTIME PRN PRN Reason: refusal of PO Last Admin: 04/04/22 23:12 Dose: 5 mg Oxybutynin Chloride (Oxybutynin Chloride Er 5 Mg Tab.Er.24) 10 mg PO DAILY TIMOTEO Last Admin: 05/02/22 10:01 Dose: 10 mg Trazodone HCl (Trazodone Hcl 50 Mg Tablet) 50 mg PO BEDTIME PRN PRN Reason: insomnia Last Admin: 05/01/22 22:10 Dose: 50 mg Allergies Allergies Allergy/AdvReac Type Severity Reaction Status Date / Time codeine Allergy Unknown Unknown Verified 12/15/21 18:29 sulfadiazine Allergy Unknown Unknown Verified 12/15/21 18:29 Assessment & Plan Assessment & Plan (1) Urinary incontinence: Status: Acute Code(s): R32 - Unspecified urinary incontinence Plan Plan 1. Continue same treatment, 2. Waiting for placement. 3. X-ray head and mouth. 4. Dentist consult tomorrow on Section 21 filed today Reason for contiued inpatient stay Substantial Risk for: inability to function, rapid decompensation and med/psych decompensation Time Spent With Patient Time: Total time managing care of this patient today __20__ minutes.
[2022-05-02 20:22] VITALS: BP 141/85; PULSE 89; RESP 16; TEMP 37.6; O2SAT 96
[2022-05-02] MEDS: OLANZapine 5 MG TABLET PO (20:26)
[2022-05-02] MEDS: traZODone HCL 50 MG TABLET PO (20:26)
[2022-05-02] MEDS: amLODIPine Besylate 10 MG TABLET PO (20:26)
[2022-05-03] MEDS: hydroCHLOROthiazide 12.5 MG TABLET PO (08:22)
[2022-05-03] MEDS: Docusate Sodium 100 MG CAPSULE PO (10:39)
--- NOTE | 2022-05-03 14:09 | P.PNPSI_ITS ---
Subjective Subjective Date of Service: 05/03/22 Reason For Visit: Mood Subjective Notes: Conditional Voluntary Interim History: The nursing staff reported that yesterday it went to the dentist appointment but she was not on the scale. Was rescheduled for today at 03:30. The patient has noticed that she has frequent incontinence. On interview denies new symptoms Mental Status Exam Mental Status Exam Patient Appearance: Appropriate Patient Orientation: Person and Situation Level of Consciousness: Awake Patient Behavior: Guarded and Passive Mood Description: Withdrawn Affect Description: Labile Patient Cognition Impaired: Yes Ability to Follow Directions: Good Speech Pattern: Impoverished Hallucinations: None Delusions: Paranoid Ideation Thought Process: Slowed Thinking Thought Content: positive for [place] Judgement: Poor Diagnostics Vital Signs (24Hr): Vital Signs - 24 hr 05/02/22 20:22 Temperature 99.7 F Pulse Rate 89 Respiratory Rate 16 Blood Pressure 141/85 H Pulse Oximetry 96 Oxygen Delivery Method Room Air BMI result Body Mass Index 26.9 Labs 01/20/22 08:00 01/20/22 08:00 Imaging Radiology Impressions: ITS Impressions Chest CT 01/10/22 15:11 IMPRESSION: Bilateral small pulmonary nodules, left greater than right. Biapical pleural and parenchymal scarring. 1.1 x 1.4 cm heterogeneous or semisolid right apical nodule, question related to pleural and parenchymal scarring. 1.5 cm partially calcified left thyroid nodule. Based on patient age in size, this does not meet criteria for follow-up. Moderate coronary artery calcification. Fleischner guidelines were followed. Chest CT 04/01/22 14:44 IMPRESSION: *Unchanged semisolid 1.5 cm x 1.0 cm nodule within the apex of the right pulmonary lobe. Per the Fleischner Society 2017 revised guidelines, as clinically indicated recommend annual screening CT to demonstrate stability to demonstrate ultimate 5 year stability. *Unchanged small number of scattered solid pulmonary nodules ranging in size up to 6 mm diameter stable compared with 01/10/2022. *Moderate-marked diffuse coronary artery calcific atherosclerosis. *Partially visualized posttreatment related changes of the right breast. Head CT 04/18/22 09:11 IMPRESSION: No acute intracranial pathology. Medications Medications Current Medications Acetaminophen (Acetaminophen 325 Mg Tablet) 650 mg PO Q6H PRN PRN Reason: Pain, Moderate (Pain Scale 4-6 Last Admin: 05/01/22 19:47 Dose: 650 mg Amlodipine Besylate (Amlodipine Besylate 10 Mg Tablet) 10 mg PO BEDTIME TIMOTEO; Protocol Last Admin: 05/02/22 20:26 Dose: 10 mg Docusate Sodium (Docusate Sodium 100 Mg Capsule) 100 mg PO BID PRN PRN Reason: Constipation Last Admin: 05/03/22 10:39 Dose: 100 mg Hydrochlorothiazide (Hydrochlorothiazide 12.5 Mg Tablet) 12.5 mg PO DAILY TIMOTEO; Protocol Last Admin: 05/03/22 08:22 Dose: 12.5 mg Hydrocortisone (Hydrocortisone 1 % Cream 28.35 Gm Tube) 1 appl TOPICAL DAILY PRN PRN Reason: pruritic skin Ibuprofen (Ibuprofen 600 Mg Tablet) 600 mg PO Q8H PRN PRN Reason: pain not relieved by tylenol Olanzapine (Olanzapine 5 Mg Tablet) 5 mg PO BEDTIME TIMOTEO Last Admin: 05/02/22 20:26 Dose: 5 mg Olanzapine (Olanzapine 10 Mg Vial) 5 mg IM BEDTIME PRN PRN Reason: refusal of PO Last Admin: 04/04/22 23:12 Dose: 5 mg Oxybutynin Chloride (Oxybutynin Chloride Er 5 Mg Tab.Er.24) 10 mg PO DAILY TIMOTEO Last Admin: 05/03/22 08:22 Dose: 10 mg Trazodone HCl (Trazodone Hcl 50 Mg Tablet) 50 mg PO BEDTIME PRN PRN Reason: insomnia Last Admin: 05/02/22 20:26 Dose: 50 mg Allergies Allergies Allergy/AdvReac Type Severity Reaction Status Date / Time codeine Allergy Unknown Unknown Verified 12/15/21 18:29 sulfadiazine Allergy Unknown Unknown Verified 12/15/21 18:29 Assessment & Plan Assessment & Plan (1) Urinary incontinence: Status: Acute Code(s): R32 - Unspecified urinary incontinence Plan Plan 1. Continue same treatment, 2. Waiting for placement. 3. X-ray head and mouth. 4. Dentist consult tomorrow on Section 21 filed today Reason for contiued inpatient stay Substantial Risk for: inability to function, rapid decompensation and med/psych decompensation Time Spent With Patient Time: Total time managing care of this patient today __20__ minutes.
[2022-05-03 18:00] VITALS: BP 119/57; PULSE 73; RESP 16; TEMP 38.4; O2SAT 94
[2022-05-03 20:09] LABS: Influenza A PCR NEGATIVE (Negative); Influenza B PCR NEGATIVE (Negative); Resp Syncy Virus RNA Qual PCR NEGATIVE (Negative); SARS COV2 PCR INHOUSE POSITIVE (Negative)
[2022-05-03] MEDS: traZODone HCL 50 MG TABLET PO (21:25)
[2022-05-03] MEDS: Acetaminophen 325 MG TABLET 650 MG PO (21:25)
[2022-05-03] MEDS: amLODIPine Besylate 10 MG TABLET PO (21:25)
[2022-05-03] MEDS: OLANZapine 5 MG TABLET PO (21:25)
[2022-05-04 02:00] VITALS: RESP 18; TEMP 37.2; O2SAT 93
--- NOTE | 2022-05-04 02:25 | PC.NURSE ---
Pt tested positive for COVID 19 this shift.
[2022-05-04 06:35] VITALS: TEMP 37.3; O2SAT 94
[2022-05-04 10:00] VITALS: PULSE 81; TEMP 38.3; O2SAT 94
[2022-05-04] MEDS: hydroCHLOROthiazide 12.5 MG TABLET PO (10:03)
--- NOTE | 2022-05-04 11:53 | HO.PM.IMCN ---
History of Present Illness Data of Consult Service Date: 05/04/22 Primary Care Provider: Conchita Harding NP HPI Reason for consult: COVID+, medical management Patient is an 86-year-old female with a PMH significant for history of breast cancer, psychosis, and dementia who is seen in [facility] after testing positive for COVID yesterday. Patient has a fever of 101.0, but otherwise vitals are stable: Pulse 81, O2 sat 94 on room air. Patient seen in her room sleeping, arousable but and cable providing a full HPI d/t dementia. According to nursing staff, patient has been fatigued, unsteady on her feet, had increased incontinence, and had reduced p.o. intake of fluids and liquids. Patient has been mostly sleeping in her bed today. Review of Systems Review of Systems: For not capable of obtaining due to patient's mentation. FORMERLY [facility], 1928–1983 Medical History Urinary incontinence Functional capacity: uses cane/walker Social History Household Members: None Housing: House Do you presently have visiting nurse or other home services: No (per crisis eval pt. home to be condemned. passed approx 1 week ago) Unable to assess alcohol history related to: Refusing to respond Patient Tobacco Use Status: Tobacco use Unknown Use of substances other than those prescribed or required for medical reasons: Refusing to respond Last Used Substance: Unknown Currently Displaying Signs/Symptoms of Drug Intoxication Withdrawal: No Do you feel safe in your current relationship?: No Current Relationship Spiritual Healthcare Practices: refusing to respond Scientologist Healthcare Practices: refusing to respond Cultural Healthcare Practices: refusing to respond Advance Directives: No Advance Directives Information Provided: No Do you have thoughts of harming others: None Do you have a plan to hurt others: No Plan Recently lost weight without trying: Unsure How much weight loss: Unsure Nutrition Risks: Emaciation/Cachexia Patient : No : No Poor oral hygiene: No service: No Sexual orientation: Straight/Heterosexual Meds Allergies Allergy/AdvReac Type Severity Reaction Status Date / Time codeine Allergy Unknown Unknown Verified 12/15/21 18:29 sulfadiazine Allergy Unknown Unknown Verified 12/15/21 18:29 Active Medications: Current Medications Acetaminophen (Acetaminophen 325 Mg Tablet) 650 mg PO Q6H PRN PRN Reason: Pain, Moderate (Pain Scale 4-6 Last Admin: 05/03/22 21:25 Dose: 650 mg Amlodipine Besylate (Amlodipine Besylate 10 Mg Tablet) 10 mg PO BEDTIME TIMOTEO; Protocol Last Admin: 05/03/22 21:25 Dose: 10 mg Docusate Sodium (Docusate Sodium 100 Mg Capsule) 100 mg PO BID PRN PRN Reason: Constipation Last Admin: 05/03/22 10:39 Dose: 100 mg Hydrochlorothiazide (Hydrochlorothiazide 12.5 Mg Tablet) 12.5 mg PO DAILY TIMOTEO; Protocol Last Admin: 05/04/22 10:03 Dose: 12.5 mg Hydrocortisone (Hydrocortisone 1 % Cream 28.35 Gm Tube) 1 appl TOPICAL DAILY PRN PRN Reason: pruritic skin Ibuprofen (Ibuprofen 600 Mg Tablet) 600 mg PO Q8H PRN PRN Reason: pain not relieved by tylenol Olanzapine (Olanzapine 5 Mg Tablet) 5 mg PO BEDTIME TIMOTEO Last Admin: 05/03/22 21:25 Dose: 5 mg Olanzapine (Olanzapine 10 Mg Vial) 5 mg IM BEDTIME PRN PRN Reason: refusal of PO Last Admin: 04/04/22 23:12 Dose: 5 mg Oxybutynin Chloride (Oxybutynin Chloride Er 5 Mg Tab.Er.24) 10 mg PO DAILY TIMOTEO Last Admin: 05/04/22 10:03 Dose: 10 mg Trazodone HCl (Trazodone Hcl 50 Mg Tablet) 50 mg PO BEDTIME PRN PRN Reason: insomnia Last Admin: 05/03/22 21:25 Dose: 50 mg Home Medications Medication Instructions Recorded Confirmed Last Taken Type atorvastatin 20 mg tablet 1 tab PO BEDTIME 12/16/21 12/16/21 Unknown History sertraline 25 mg tablet 1 tab PO BEDTIME 12/16/21 12/16/21 Unknown History trazodone 50 mg tablet 1 tab PO BEDTIME 12/16/21 12/16/21 Unknown History Physical Exam Vital Signs and Narrative: Vital Signs: Last Vital Signs Temp 101.0 F H 05/04/22 10:00 Pulse 81 05/04/22 10:00 Resp 18 05/04/22 02:00 BP 119/57 L 05/03/22 18:00 Pulse Ox 94 02/16/23 10:00 O2 Del Method 05/04/22 10:00 BMI result Body Mass Index 26.9 General: Somnolent but arousable Resp: Diffuse expiratory wheezes CVS: S1, S2, RRR GI: +BS, NT, no distention Skin: No rash Extremities: No edema Results Labs 01/20/22 08:00 01/20/22 08:00 Labs: Laboratory Results - last 24 hr 05/03/22 18:55 Influenza Type A (PCR) NEGATIVE Influenza Type B (PCR) NEGATIVE RSV RNA Qual (PCR) NEGATIVE SARS-CoV-2 RNA (RT-PCR) POSITIVE A Assessment and Plan (1) COVID: Status: Acute Plan Patient is an 86-year-old female with a PMH significant for history of breast cancer, psychosis, and dementia who is seen in [facility] psych after testing positive for COVID yesterday. Acute COVID infection Patient hypoxic, not on supplemental O2, Decadron not indicated Remdesivir x3 days Close monitoring of respiratory status Thank you for allowing us to participate in the care of this patient. Signing off at this time. Please contact us if patient becomes hypoxic, or with any acute questions or concerns. Time Spent With Patient Time: Total time managing care of this patient today ____ minutes.
[2022-05-04 12:42] VITALS: BP 171/73; PULSE 94; RESP 18; TEMP 37.8; O2SAT 93
--- NOTE | 2022-05-04 13:12 | HO.PSYCHPN ---
Subjective Subjective Date of Service: 05/04/22 Reason For Visit: Mood Subjective Notes: Conditional Voluntary Interim History: The nursing staff reported that the patient has tested COVID positive, she complained of fever last night. She has been eating and taking liquids but she looks dysphoric. We had to cancel her dentist appointment. On interview the patient feels disappointed of the COVID diagnosis and the hospitalist suggested IV antivirals. Mental Status Exam Mental Status Exam Patient Appearance: Appropriate Patient Orientation: Person and Situation Level of Consciousness: Awake and Appropriate Patient Behavior: Guarded and Passive Mood Description: Withdrawn Affect Description: Constricted Patient Cognition Impaired: Yes Ability to Follow Directions: Good Speech Pattern: Clear Hallucinations: None Delusions: Paranoid Ideation Thought Process: Distracted and Slowed Thinking Thought Content: positive for [place] and positive for Circumstantial Judgement: Poor Diagnostics Vital Signs (24Hr): Vital Signs - 24 hr 05/03/22 18:00 05/04/22 02:00 05/04/22 06:35 Temperature 101.1 F H 98.9 F 99.2 F Pulse Rate 73 Respiratory Rate 16 18 Blood Pressure 119/57 L Pulse Oximetry 94 93 94 Oxygen Delivery Method Room Air Room Air Room Air 05/04/22 10:00 05/04/22 12:42 Temperature 101.0 F H 100.1 F Pulse Rate 81 94 Respiratory Rate 18 Blood Pressure 171/73 H Pulse Oximetry 94 93 Oxygen Delivery Method Room Air Room Air BMI result Body Mass Index 26.9 Labs 01/20/22 08:00 01/20/22 08:00 Labs: Laboratory Results - last 48 hr 05/03/22 18:55 Influenza Type A (PCR) NEGATIVE Influenza Type B (PCR) NEGATIVE RSV RNA Qual (PCR) NEGATIVE SARS-CoV-2 RNA (RT-PCR) POSITIVE A Imaging Radiology Impressions: ITS Impressions Chest CT 01/10/22 15:11 IMPRESSION: Bilateral small pulmonary nodules, left greater than right. Biapical pleural and parenchymal scarring. 1.1 x 1.4 cm heterogeneous or semisolid right apical nodule, question related to pleural and parenchymal scarring. 1.5 cm partially calcified left thyroid nodule. Based on patient age in size, this does not meet criteria for follow-up. Moderate coronary artery calcification. Fleischner guidelines were followed. Chest CT 04/01/22 14:44 IMPRESSION: *Unchanged semisolid 1.5 cm x 1.0 cm nodule within the apex of the right pulmonary lobe. Per the Fleischner Society 2017 revised guidelines, as clinically indicated recommend annual screening CT to demonstrate stability to demonstrate ultimate 5 year stability. *Unchanged small number of scattered solid pulmonary nodules ranging in size up to 6 mm diameter stable compared with 01/10/2022. *Moderate-marked diffuse coronary artery calcific atherosclerosis. *Partially visualized posttreatment related changes of the right breast. Head CT 04/18/22 09:11 IMPRESSION: No acute intracranial pathology. Medications Medications Current Medications Acetaminophen (Acetaminophen 325 Mg Tablet) 650 mg PO Q6H PRN PRN Reason: Pain, Moderate (Pain Scale 4-6 Last Admin: 05/03/22 21:25 Dose: 650 mg Amlodipine Besylate (Amlodipine Besylate 10 Mg Tablet) 10 mg PO BEDTIME TIMOTEO; Protocol Last Admin: 05/03/22 21:25 Dose: 10 mg Docusate Sodium (Docusate Sodium 100 Mg Capsule) 100 mg PO BID PRN PRN Reason: Constipation Last Admin: 05/03/22 10:39 Dose: 100 mg Hydrochlorothiazide (Hydrochlorothiazide 12.5 Mg Tablet) 12.5 mg PO DAILY TIMOTEO; Protocol Last Admin: 05/04/22 10:03 Dose: 12.5 mg Hydrocortisone (Hydrocortisone 1 % Cream 28.35 Gm Tube) 1 appl TOPICAL DAILY PRN PRN Reason: pruritic skin Remdesivir 200 mg/ Sodium (Chloride) 210 mls @ 105 mls/hr IV ONCE ONE Stop: 05/04/22 14:59 Remdesivir 100 mg/ Sodium (Chloride) 230 mls @ 115 mls/hr IV Q24H TIMOTEO Stop: 05/06/22 14:59 Ibuprofen (Ibuprofen 600 Mg Tablet) 600 mg PO Q8H PRN PRN Reason: pain not relieved by tylenol Olanzapine (Olanzapine 5 Mg Tablet) 5 mg PO BEDTIME TIMOTEO Last Admin: 05/03/22 21:25 Dose: 5 mg Olanzapine (Olanzapine 10 Mg Vial) 5 mg IM BEDTIME PRN PRN Reason: refusal of PO Last Admin: 04/04/22 23:12 Dose: 5 mg Oxybutynin Chloride (Oxybutynin Chloride Er 5 Mg Tab.Er.24) 10 mg PO DAILY ITMOTEO Last Admin: 05/04/22 10:03 Dose: 10 mg Trazodone HCl (Trazodone Hcl 50 Mg Tablet) 50 mg PO BEDTIME PRN PRN Reason: insomnia Last Admin: 05/03/22 21:25 Dose: 50 mg Allergies Allergies Allergy/AdvReac Type Severity Reaction Status Date / Time codeine Allergy Unknown Unknown Verified 12/15/21 18:29 sulfadiazine Allergy Unknown Unknown Verified 12/15/21 18:29 Assessment & Plan Assessment & Plan (1) COVID: Status: Acute Code(s): U07.1 - COVID-19 Plan Patient is an 86-year-old female with a PMH significant for history of breast cancer, psychosis, and dementia who is seen in [facility] after testing positive for COVID yesterday. Acute COVID infection Patient hypoxic, not on supplemental O2, Decadron not indicated Remdesivir x3 days Close monitoring of respiratory status Thank you for allowing us to participate in the care of this patient. Signing off at this time. Please contact us if patient becomes hypoxic, or with any acute questions or concerns. Psychiatry 1. Continue with same treatment. 2. Continue with the recommendations of Medicine for COVID treatment. 3. Waiting for placement. Reason for contiued inpatient stay Substantial Risk for: inability to function, rapid decompensation and med/psych decompensation Time Spent With Patient Time: Total time managing care of this patient today __20__ minutes.
[2022-05-04] MEDS: Remdesivir 200 MG in 0.9 % Sodium Chloride 210 ML 105 MG IV (15:20)
[2022-05-04] MEDS: 0.9 % Sodium Chloride Flush 3 ML SYRINGE IVFLUSH (17:24)
[2022-05-04 17:54] VITALS: PULSE 92; RESP 18; TEMP 38.4
--- NOTE | 2022-05-04 18:05 | PC.NURSE ---
Patient received IV anti viral this shift. #20 angio was placed in L antecubital. IV infused at 105ml's/hour for 2 hours. Patient tolerated well . Line is patent. Flushed with 3ml 0.9% Sodium Chloride.
[2022-05-04] MEDS: amLODIPine Besylate 10 MG TABLET PO (20:52)
[2022-05-04] MEDS: OLANZapine 5 MG TABLET PO (20:52)
[2022-05-04 21:00] VITALS: BP 179/96; PULSE 105; RESP 18; TEMP 37.4; O2SAT 93
[2022-05-05 05:00] VITALS: BP 170/77; PULSE 89; RESP 17; TEMP 38.3; O2SAT 93
[2022-05-05] MEDS: Acetaminophen 325 MG TABLET 650 MG PO ×3 (05:02→20:11)
[2022-05-05 09:00] VITALS: BP 131/76; PULSE 99; RESP 18; TEMP 36.6; O2SAT 93
[2022-05-05] MEDS: hydroCHLOROthiazide 12.5 MG TABLET PO (09:01)
[2022-05-05] MEDS: 0.9 % Sodium Chloride Flush 3 ML SYRINGE IVFLUSH ×2 (11:01→15:49)
[2022-05-05 13:00] VITALS: BP 139/80; PULSE 76; RESP 18; TEMP 36.8; O2SAT 92
[2022-05-05 13:20] VITALS: BP 139/80; PULSE 76; RESP 18; TEMP 36.8
[2022-05-05] MEDS: Remdesivir 100 MG in 0.9 % Sodium Chloride 230 ML 115 MG IV (13:20)
[2022-05-05] MEDS: Ibuprofen 600 MG TABLET PO (13:29)
--- NOTE | 2022-05-05 15:01 | HO.PSYCHPN ---
Subjective Subjective Date of Service: 05/05/22 Reason For Visit: Mood Subjective Notes: Conditional Voluntary Interim History: The nursing staff reported the patient has been acutely sick with COVID and she has receive IV antiviral is. On interview the patient reports that she is feeling very tired we had to reschedule her dentist appointment due to COVID. Mental Status Exam Mental Status Exam Patient Appearance: Appropriate Patient Orientation: Person and Situation Level of Consciousness: Awake Patient Behavior: Guarded and Passive Mood Description: Withdrawn Affect Description: Constricted Patient Cognition Impaired: Yes Ability to Follow Directions: Good Speech Pattern: Clear Hallucinations: None Delusions: Paranoid Ideation Thought Process: Distracted, Evasive and Slowed Thinking Thought Content: positive for [place] Judgement: Poor Diagnostics Vital Signs (24Hr): Vital Signs - 24 hr 05/04/22 17:54 05/04/22 21:00 05/05/22 05:00 Temperature 101.2 F H 99.4 F 101.0 F H Pulse Rate 92 105 H 89 Respiratory Rate 18 18 17 Blood Pressure 179/96 H 170/77 H Pulse Oximetry 93 93 Oxygen Delivery Method Room Air Room Air 05/05/22 09:00 05/05/22 13:20 05/05/22 13:00 Temperature 97.8 F 98.3 F 98.3 F Pulse Rate 99 76 76 Respiratory Rate 18 18 18 Blood Pressure 131/76 139/80 139/80 Pulse Oximetry 93 92 Oxygen Delivery Method Room Air Room Air BMI result Body Mass Index 26.9 Labs 01/20/22 08:00 01/20/22 08:00 Labs: Laboratory Results - last 48 hr 05/03/22 18:55 Influenza Type A (PCR) NEGATIVE Influenza Type B (PCR) NEGATIVE RSV RNA Qual (PCR) NEGATIVE SARS-CoV-2 RNA (RT-PCR) POSITIVE A Imaging Radiology Impressions: ITS Impressions Chest CT 01/10/22 15:11 IMPRESSION: Bilateral small pulmonary nodules, left greater than right. Biapical pleural and parenchymal scarring. 1.1 x 1.4 cm heterogeneous or semisolid right apical nodule, question related to pleural and parenchymal scarring. 1.5 cm partially calcified left thyroid nodule. Based on patient age in size, this does not meet criteria for follow-up. Moderate coronary artery calcification. Fleischner guidelines were followed. Chest CT 04/01/22 14:44 IMPRESSION: *Unchanged semisolid 1.5 cm x 1.0 cm nodule within the apex of the right pulmonary lobe. Per the Fleischner Society 2017 revised guidelines, as clinically indicated recommend annual screening CT to demonstrate stability to demonstrate ultimate 5 year stability. *Unchanged small number of scattered solid pulmonary nodules ranging in size up to 6 mm diameter stable compared with 01/10/2022. *Moderate-marked diffuse coronary artery calcific atherosclerosis. *Partially visualized posttreatment related changes of the right breast. Head CT 04/18/22 09:11 IMPRESSION: No acute intracranial pathology. Medications Medications Current Medications Acetaminophen (Acetaminophen 325 Mg Tablet) 650 mg PO Q6H PRN PRN Reason: Pain, Moderate (Pain Scale 4-6 Last Admin: 05/05/22 11:18 Dose: 650 mg Amlodipine Besylate (Amlodipine Besylate 10 Mg Tablet) 10 mg PO BEDTIME TIMOTEO; Protocol Last Admin: 05/04/22 20:52 Dose: 10 mg Docusate Sodium (Docusate Sodium 100 Mg Capsule) 100 mg PO BID PRN PRN Reason: Constipation Last Admin: 05/03/22 10:39 Dose: 100 mg Hydrochlorothiazide (Hydrochlorothiazide 12.5 Mg Tablet) 12.5 mg PO DAILY TIMOTEO; Protocol Last Admin: 05/05/22 09:01 Dose: 12.5 mg Hydrocortisone (Hydrocortisone 1 % Cream 28.35 Gm Tube) 1 appl TOPICAL DAILY PRN PRN Reason: pruritic skin Remdesivir 100 mg/ Sodium (Chloride) 230 mls @ 115 mls/hr IV Q24H TIMOTEO Stop: 05/06/22 14:59 Last Admin: 05/05/22 13:20 Dose: 115 mls/hr Ibuprofen (Ibuprofen 600 Mg Tablet) 600 mg PO Q8H PRN PRN Reason: pain not relieved by tylenol Last Admin: 05/05/22 13:29 Dose: 600 mg Olanzapine (Olanzapine 5 Mg Tablet) 5 mg PO BEDTIME TIMOTEO Last Admin: 05/04/22 20:52 Dose: 5 mg Olanzapine (Olanzapine 10 Mg Vial) 5 mg IM BEDTIME PRN PRN Reason: refusal of PO Last Admin: 04/04/22 23:12 Dose: 5 mg Oxybutynin Chloride (Oxybutynin Chloride Er 5 Mg Tab.Er.24) 10 mg PO DAILY TIMOTEO Last Admin: 05/05/22 09:01 Dose: 10 mg Sodium Chloride (0.9 % Sodium Chloride Flush 3 Ml Syringe) 3 ml IVFLUSH QSHIFT TIMOTEO Last Admin: 05/05/22 11:01 Dose: 3 ml Trazodone HCl (Trazodone Hcl 50 Mg Tablet) 50 mg PO BEDTIME PRN PRN Reason: insomnia Last Admin: 05/03/22 21:25 Dose: 50 mg Allergies Allergies Allergy/AdvReac Type Severity Reaction Status Date / Time codeine Allergy Unknown Unknown Verified 12/15/21 18:29 sulfadiazine Allergy Unknown Unknown Verified 12/15/21 18:29 Assessment & Plan Assessment & Plan (1) COVID: Status: Acute Code(s): U07.1 - COVID-19 Plan Patient is an 86-year-old female with a PMH significant for history of breast cancer, psychosis, and dementia who is seen in [facility] psych after testing positive for COVID yesterday. Acute COVID infection Patient hypoxic, not on supplemental O2, Decadron not indicated Remdesivir x3 days Close monitoring of respiratory status Thank you for allowing us to participate in the care of this patient. Signing off at this time. Please contact us if patient becomes hypoxic, or with any acute questions or concerns. Psychiatry 1. Continue with same treatment. 2. Continue with the recommendations of Medicine for COVID treatment. 3. Waiting for placement. Reason for contiued inpatient stay Substantial Risk for: inability to function, rapid decompensation and med/psych decompensation Time Spent With Patient Time: Total time managing care of this patient today _20___ minutes.
[2022-05-05 17:00] VITALS: BP 142/78; PULSE 72; RESP 18; TEMP 36.7; O2SAT 93
[2022-05-05] MEDS: Benzocaine 20 % Oral Gel 9 GM TUBE 1 APPL MUCOUS MEM ×2 (17:24→20:11)
[2022-05-05] MEDS: traZODone HCL 50 MG TABLET PO (20:06)
[2022-05-05] MEDS: OLANZapine 5 MG TABLET PO (20:07)
[2022-05-05] MEDS: amLODIPine Besylate 10 MG TABLET PO (20:07)
[2022-05-05 21:00] VITALS: BP 137/70; PULSE 68; RESP 18; TEMP 36.8; O2SAT 94
[2022-05-06 09:00] VITALS: BP 146/76; PULSE 93; RESP 18; TEMP 37.3; O2SAT 91
[2022-05-06] MEDS: hydroCHLOROthiazide 12.5 MG TABLET PO (09:33)
[2022-05-06] MEDS: Acetaminophen 325 MG TABLET 650 MG PO (12:17)
[2022-05-06] MEDS: Remdesivir 100 MG in 0.9 % Sodium Chloride 230 ML 115 MG IV (13:00)
[2022-05-06] MEDS: 0.9 % Sodium Chloride Flush 3 ML SYRINGE IVFLUSH ×2 (13:00→17:13)
--- NOTE | 2022-05-06 13:36 | HO.PSYCHPN ---
Subjective Subjective Date of Service: 05/06/22 Reason For Visit: Mood Subjective Notes: Section 8 Interim History: Pt asleep, receiving dose of IV remdesivir. Pt in bed, in isolation due to covid. O2sat >92. No acute respiratory distress. Per nursing, pt slept through the night. Some combativeness at night. Medication Compliance: Yes Diagnostics Vital Signs (24Hr): Vital Signs - 24 hr 05/06/22 20:02 05/07/22 08:58 05/07/22 13:00 Temperature 97.9 F 97.5 F 98.0 F Pulse Rate 95 84 82 Respiratory Rate 18 18 17 Blood Pressure 144/72 H 154/69 H 133/62 Pulse Oximetry 95 96 95 Oxygen Delivery Method Room Air Room Air Room Air BMI result Body Mass Index 26.9 Labs 01/20/22 08:00 01/20/22 08:00 Imaging Radiology Impressions: ITS Impressions Chest CT 01/10/22 15:11 IMPRESSION: Bilateral small pulmonary nodules, left greater than right. Biapical pleural and parenchymal scarring. 1.1 x 1.4 cm heterogeneous or semisolid right apical nodule, question related to pleural and parenchymal scarring. 1.5 cm partially calcified left thyroid nodule. Based on patient age in size, this does not meet criteria for follow-up. Moderate coronary artery calcification. Fleischner guidelines were followed. Chest CT 04/01/22 14:44 IMPRESSION: *Unchanged semisolid 1.5 cm x 1.0 cm nodule within the apex of the right pulmonary lobe. Per the Fleischner Society 2017 revised guidelines, as clinically indicated recommend annual screening CT to demonstrate stability to demonstrate ultimate 5 year stability. *Unchanged small number of scattered solid pulmonary nodules ranging in size up to 6 mm diameter stable compared with 01/10/2022. *Moderate-marked diffuse coronary artery calcific atherosclerosis. *Partially visualized posttreatment related changes of the right breast. Head CT 04/18/22 09:11 IMPRESSION: No acute intracranial pathology. Medications Medications Current Medications Acetaminophen (Acetaminophen 325 Mg Tablet) 650 mg PO Q6H PRN PRN Reason: Pain, Moderate (Pain Scale 4-6 Last Admin: 05/06/22 12:17 Dose: 650 mg Amlodipine Besylate (Amlodipine Besylate 10 Mg Tablet) 10 mg PO BEDTIME TIMOTEO; Protocol Last Admin: 05/06/22 19:58 Dose: 10 mg Benzocaine (Benzocaine 20 % Oral Gel 9 Gm Tube) 1 appl MUCOUS MEM QID PRN; Protocol PRN Reason: oral pain Last Admin: 05/05/22 20:11 Dose: 1 appl Docusate Sodium (Docusate Sodium 100 Mg Capsule) 100 mg PO BID PRN PRN Reason: Constipation Last Admin: 05/03/22 10:39 Dose: 100 mg Hydrochlorothiazide (Hydrochlorothiazide 12.5 Mg Tablet) 12.5 mg PO DAILY TIMOTEO; Protocol Last Admin: 05/07/22 08:34 Dose: 12.5 mg Ibuprofen (Ibuprofen 600 Mg Tablet) 600 mg PO Q8H PRN PRN Reason: pain not relieved by tylenol Last Admin: 05/07/22 12:45 Dose: 600 mg Olanzapine (Olanzapine 5 Mg Tablet) 5 mg PO BEDTIME TIMOTEO Last Admin: 05/06/22 19:59 Dose: 5 mg Olanzapine (Olanzapine 10 Mg Vial) 5 mg IM BEDTIME PRN PRN Reason: refusal of PO Last Admin: 04/04/22 23:12 Dose: 5 mg Oxybutynin Chloride (Oxybutynin Chloride Er 5 Mg Tab.Er.24) 10 mg PO DAILY TIMOTEO Last Admin: 05/07/22 08:33 Dose: 10 mg Sodium Chloride (0.9 % Sodium Chloride Flush 3 Ml Syringe) 3 ml IVFLUSH QSHIFT [facility] Last Admin: 05/07/22 12:45 Dose: 3 ml Trazodone HCl (Trazodone Hcl 50 Mg Tablet) 50 mg PO BEDTIME PRN PRN Reason: insomnia Last Admin: 05/06/22 19:58 Dose: 50 mg Allergies Allergies Allergy/AdvReac Type Severity Reaction Status Date / Time codeine Allergy Unknown Unknown Verified 12/15/21 18:29 sulfadiazine Allergy Unknown Unknown Verified 12/15/21 18:29 Assessment & Plan Assessment & Plan (1) COVID: Status: Acute Code(s): U07.1 - COVID-19 Plan Patient is an 86-year-old female with a PMH significant for history of breast cancer, psychosis, and dementia who is seen in [facility] after testing positive for COVID yesterday. Acute COVID infection Patient hypoxic, not on supplemental O2, Decadron not indicated Remdesivir x3 days Close monitoring of respiratory status Thank you for allowing us to participate in the care of this patient. Signing off at this time. Please contact us if patient becomes hypoxic, or with any acute questions or concerns. Psychiatry 1. Continue with same treatment. 2. Continue with the recommendations of Medicine for COVID treatment. 3. Waiting for placement. 05/06 continue tx. Reason for contiued inpatient stay Substantial Risk for: inability to function Time Spent With Patient Time: Total time managing care of this patient today ____ minutes.
[2022-05-06] MEDS: Ibuprofen 600 MG TABLET PO (17:13)
[2022-05-06] MEDS: amLODIPine Besylate 10 MG TABLET PO (19:58)
[2022-05-06] MEDS: traZODone HCL 50 MG TABLET PO (19:58)
[2022-05-06] MEDS: OLANZapine 5 MG TABLET PO (19:59)
[2022-05-06 20:02] VITALS: BP 144/72; PULSE 95; RESP 18; TEMP 36.6; O2SAT 95
[2022-05-07] MEDS: hydroCHLOROthiazide 12.5 MG TABLET PO (08:34)
[2022-05-07 08:58] VITALS: BP 154/69; PULSE 84; RESP 18; TEMP 36.4; O2SAT 96
[2022-05-07] MEDS: Ibuprofen 600 MG TABLET PO (12:45)
[2022-05-07] MEDS: 0.9 % Sodium Chloride Flush 3 ML SYRINGE IVFLUSH (12:45)
[2022-05-07 13:00] VITALS: BP 133/62; PULSE 82; RESP 17; TEMP 36.7; O2SAT 95
--- NOTE | 2022-05-07 13:19 | PC.NURSE ---
Patient medicated with Motrin for c/o of toothache. Pain rated 5-6/10. Appointment with dentist had been scheduled and cancelled.
--- NOTE | 2022-05-07 13:32 | HO.PSYCHPN ---
Subjective Subjective Date of Service: 05/07/22 Reason For Visit: Mood Subjective Notes: Conditional Voluntary Interim History: Pt in bed, awake and alert, in isolation due to covid. O2sat >92. No acute respiratory distress. Per nursing, Some combativeness at night. Medication Compliance: Yes Review of Systems Review of Systems For not capable of obtaining due to patient's mentation. Yes all other systems are reviewed and are negative and Unobtainable due to mental status Constitutional: Reports no additional constitutional complaints Eyes: Reports no additional eye complaints Reports system reviewed and no additional complaints, except as documented Cardiovascular: Reports no additional cardiovascular complaints Respiratory: Reports no additional respiratory complaints Gastrointestinal: Reports no additional gastrointestinal complaints Musculoskeletal: Reports no additional musculoskeletal complaints Skin/Breast: Reports system reviewed and no additional complaints, except as docu Reports system reviewed and no additional complaints, except as documented and Reports confusion (at times speaking randomly and changing subject) Psychiatric: Reports no additional psychiatric complaints, Reports as per HPI and Reports confusion (at times speaking randomly and changing subject) Endocrine: Reports no additional endocrine complaints Hematologic/Lymphatic: Reports no additional hematologic/lymphatic complaints Allergic/Immunologic: Reports no additional allergic/immunologic complaints Mental Status Exam Mental Status Exam Narrative: In room, unkempt hair and fair hygiene. No SI/HI. No VH/AH. alert. Patient Behavior: Guarded and Passive Mood Description: Withdrawn Affect Description: Constricted Patient Cognition Impaired: Yes Ability to Follow Directions: Good Speech Pattern: Clear Memory Description: Remote Impaired and Episodic Impaired Diagnostics Vital Signs (24Hr): Vital Signs - 24 hr 05/06/22 20:02 05/07/22 08:58 05/07/22 13:00 Temperature 97.9 F 97.5 F 98.0 F Pulse Rate 95 84 82 Respiratory Rate 18 18 17 Blood Pressure 144/72 H 154/69 H 133/62 Pulse Oximetry 95 96 95 Oxygen Delivery Method Room Air Room Air Room Air BMI result Body Mass Index 26.9 Labs 01/20/22 08:00 01/20/22 08:00 Imaging Radiology Impressions: ITS Impressions Chest CT 01/10/22 15:11 IMPRESSION: Bilateral small pulmonary nodules, left greater than right. Biapical pleural and parenchymal scarring. 1.1 x 1.4 cm heterogeneous or semisolid right apical nodule, question related to pleural and parenchymal scarring. 1.5 cm partially calcified left thyroid nodule. Based on patient age in size, this does not meet criteria for follow-up. Moderate coronary artery calcification. Fleischner guidelines were followed. Chest CT 04/01/22 14:44 IMPRESSION: *Unchanged semisolid 1.5 cm x 1.0 cm nodule within the apex of the right pulmonary lobe. Per the Fleischner Society 2017 revised guidelines, as clinically indicated recommend annual screening CT to demonstrate stability to demonstrate ultimate 5 year stability. *Unchanged small number of scattered solid pulmonary nodules ranging in size up to 6 mm diameter stable compared with 01/10/2022. *Moderate-marked diffuse coronary artery calcific atherosclerosis. *Partially visualized posttreatment related changes of the right breast. Head CT 04/18/22 09:11 IMPRESSION: No acute intracranial pathology. Medications Medications Current Medications Acetaminophen (Acetaminophen 325 Mg Tablet) 650 mg PO Q6H PRN PRN Reason: Pain, Moderate (Pain Scale 4-6 Last Admin: 05/06/22 12:17 Dose: 650 mg Amlodipine Besylate (Amlodipine Besylate 10 Mg Tablet) 10 mg PO BEDTIME TIMOTEO; Protocol Last Admin: 05/06/22 19:58 Dose: 10 mg Benzocaine (Benzocaine 20 % Oral Gel 9 Gm Tube) 1 appl MUCOUS MEM QID PRN; Protocol PRN Reason: oral pain Last Admin: 05/05/22 20:11 Dose: 1 appl Docusate Sodium (Docusate Sodium 100 Mg Capsule) 100 mg PO BID PRN PRN Reason: Constipation Last Admin: 05/03/22 10:39 Dose: 100 mg Hydrochlorothiazide (Hydrochlorothiazide 12.5 Mg Tablet) 12.5 mg PO DAILY TIMOTEO; Protocol Last Admin: 05/07/22 08:34 Dose: 12.5 mg Ibuprofen (Ibuprofen 600 Mg Tablet) 600 mg PO Q8H PRN PRN Reason: pain not relieved by tylenol Last Admin: 05/07/22 12:45 Dose: 600 mg Olanzapine (Olanzapine 5 Mg Tablet) 5 mg PO BEDTIME TIMOTEO Last Admin: 05/06/22 19:59 Dose: 5 mg Olanzapine (Olanzapine 10 Mg Vial) 5 mg IM BEDTIME PRN PRN Reason: refusal of PO Last Admin: 04/04/22 23:12 Dose: 5 mg Oxybutynin Chloride (Oxybutynin Chloride Er 5 Mg Tab.Er.24) 10 mg PO DAILY TIMOTEO Last Admin: 05/07/22 08:33 Dose: 10 mg Sodium Chloride (0.9 % Sodium Chloride Flush 3 Ml Syringe) 3 ml IVFLUSH QSHIFT TIMOTEO Last Admin: 05/07/22 12:45 Dose: 3 ml Trazodone HCl (Trazodone Hcl 50 Mg Tablet) 50 mg PO BEDTIME PRN PRN Reason: insomnia Last Admin: 05/06/22 19:58 Dose: 50 mg Allergies Allergies Allergy/AdvReac Type Severity Reaction Status Date / Time codeine Allergy Unknown Unknown Verified 12/15/21 18:29 sulfadiazine Allergy Unknown Unknown Verified 12/15/21 18:29 Assessment & Plan Assessment & Plan (1) Dementia: Status: Acute Code(s): F03.90 - Unspecified dementia, unspecified severity, without behavioral disturbance, psychotic disturbance, mood disturbance, and anxiety Plan Patient is an 86-year-old female with a PMH significant for history of breast cancer, psychosis, and dementia who is seen in [facility] after testing positive for COVID yesterday. Acute COVID infection Patient hypoxic, not on supplemental O2, Decadron not indicated Remdesivir x3 days Close monitoring of respiratory status Thank you for allowing us to participate in the care of this patient. Signing off at this time. Please contact us if patient becomes hypoxic, or with any acute questions or concerns. Psychiatry 1. Continue with same treatment. 2. Continue with the recommendations of Medicine for COVID treatment. 3. Waiting for placement. 05/06 continue tx. 05/07 continue tx. Reason for contiued inpatient stay Substantial Risk for: inability to function Time Spent With Patient Time: Total time managing care of this patient today ____ minutes.
[2022-05-07 20:19] VITALS: BP 146/69; PULSE 70
[2022-05-07] MEDS: amLODIPine Besylate 10 MG TABLET PO (20:21)
[2022-05-07] MEDS: OLANZapine 5 MG TABLET PO (20:21)
[2022-05-08 09:00] VITALS: BP 139/68; PULSE 80; RESP 18; TEMP 37.1; O2SAT 94
[2022-05-08] MEDS: hydroCHLOROthiazide 12.5 MG TABLET PO (09:12)
[2022-05-08] MEDS: Benzocaine 20 % Oral Gel 9 GM TUBE 1 APPL MUCOUS MEM ×3 (09:20→17:26)
[2022-05-08] MEDS: Acetaminophen 325 MG TABLET 650 MG PO ×2 (09:20→20:01)
--- NOTE | 2022-05-08 10:23 | P.PNPSI_ITS ---
Subjective Subjective Date of Service: 05/08/22 Reason For Visit: Mood Subjective Notes: Conditional Voluntary Interim History: Pt in bed. Pt is sleeping, in isolation due to covid. O2sat >94. No signs of acute respiratory distress. Per nursing, pt slept through the night. Medication Compliance: Yes Review of Systems Review of Systems For not capable of obtaining due to patient's mentation. Yes all other systems are reviewed and are negative and Unobtainable due to mental status Constitutional: Reports no additional constitutional complaints Eyes: Reports no additional eye complaints Reports system reviewed and no additional complaints, except as documented Cardiovascular: Reports no additional cardiovascular complaints Respiratory: Reports no additional respiratory complaints Gastrointestinal: Reports no additional gastrointestinal complaints Musculoskeletal: Reports no additional musculoskeletal complaints Skin/Breast: Reports system reviewed and no additional complaints, except as docu Reports system reviewed and no additional complaints, except as documented and R eports confusion (at times speaking randomly and changing subject) Psychiatric: Reports no additional psychiatric complaints, Reports as per HPI and Reports confusion (at times speaking randomly and changing subject) Endocrine: Reports no additional endocrine complaints Hematologic/Lymphatic: Reports no additional hematologic/lymphatic complaints Allergic/Immunologic: Reports no additional allergic/immunologic complaints Mental Status Exam Mental Status Exam Narrative: In room, unkempt hair and fair hygiene. No SI/HI. No VH/AH. alert. Diagnostics Vital Signs (24Hr): Vital Signs - 24 hr 05/07/22 13:00 05/07/22 20:19 Temperature 98.0 F Pulse Rate 82 70 Respiratory Rate 17 Blood Pressure 133/62 146/69 H Pulse Oximetry 95 Oxygen Delivery Method Room Air BMI result Body Mass Index 26.9 Labs 01/20/22 08:00 01/20/22 08:00 Imaging Radiology Impressions: ITS Impressions Chest CT 01/10/22 15:11 IMPRESSION: Bilateral small pulmonary nodules, left greater than right. Biapical pleural and parenchymal scarring. 1.1 x 1.4 cm heterogeneous or semisolid right apical nodule, question related to pleural and parenchymal scarring. 1.5 cm partially calcified left thyroid nodule. Based on patient age in size, this does not meet criteria for follow-up. Moderate coronary artery calcification. Fleischner guidelines were followed. Chest CT 04/01/22 14:44 IMPRESSION: *Unchanged semisolid 1.5 cm x 1.0 cm nodule within the apex of the right pulmonary lobe. Per the Fleischner Society 2017 revised guidelines, as clinically indicated recommend annual screening CT to demonstrate stability to demonstrate ultimate 5 year stability. *Unchanged small number of scattered solid pulmonary nodules ranging in size up to 6 mm diameter stable compared with 01/10/2022. *Moderate-marked diffuse coronary artery calcific atherosclerosis. *Partially visualized posttreatment related changes of the right breast. Head CT 04/18/22 09:11 IMPRESSION: No acute intracranial pathology. Medications Medications Current Medications Acetaminophen (Acetaminophen 325 Mg Tablet) 650 mg PO Q6H PRN PRN Reason: Pain, Moderate (Pain Scale 4-6 Last Admin: 05/08/22 09:20 Dose: 650 mg Amlodipine Besylate (Amlodipine Besylate 10 Mg Tablet) 10 mg PO BEDTIME TIMOTEO; Protocol Last Admin: 05/07/22 20:21 Dose: 10 mg Benzocaine (Benzocaine 20 % Oral Gel 9 Gm Tube) 1 appl MUCOUS MEM QID PRN; Protocol PRN Reason: oral pain Last Admin: 05/08/22 09:20 Dose: 1 appl Docusate Sodium (Docusate Sodium 100 Mg Capsule) 100 mg PO BID PRN PRN Reason: Constipation Last Admin: 05/03/22 10:39 Dose: 100 mg Hydrochlorothiazide (Hydrochlorothiazide 12.5 Mg Tablet) 12.5 mg PO DAILY TIMOTEO; Protocol Last Admin: 05/08/22 09:12 Dose: 12.5 mg Ibuprofen (Ibuprofen 600 Mg Tablet) 600 mg PO Q8H PRN PRN Reason: pain not relieved by tylenol Last Admin: 05/07/22 12:45 Dose: 600 mg Olanzapine (Olanzapine 5 Mg Tablet) 5 mg PO BEDTIME TIMOTEO Last Admin: 05/07/22 20:21 Dose: 5 mg Olanzapine (Olanzapine 10 Mg Vial) 5 mg IM BEDTIME PRN PRN Reason: refusal of PO Last Admin: 04/04/22 23:12 Dose: 5 mg Oxybutynin Chloride (Oxybutynin Chloride Er 5 Mg Tab.Er.24) 10 mg PO DAILY TIMOTEO Last Admin: 05/08/22 09:12 Dose: 10 mg Sodium Chloride (0.9 % Sodium Chloride Flush 3 Ml Syringe) 3 ml IVFLUSH QSHIFT TIMOTEO Last Admin: 05/08/22 09:22 Dose: Not Given Trazodone HCl (Trazodone Hcl 50 Mg Tablet) 50 mg PO BEDTIME PRN PRN Reason: insomnia Last Admin: 05/06/22 19:58 Dose: 50 mg Allergies Allergies Allergy/AdvReac Type Severity Reaction Status Date / Time codeine Allergy Unknown Unknown Verified 12/15/21 18:29 sulfadiazine Allergy Unknown Unknown Verified 12/15/21 18:29 Assessment & Plan Assessment & Plan (1) Dementia: Status: Acute Code(s): F03.90 - Unspecified dementia, unspecified severity, without behavioral disturbance, psychotic disturbance, mood disturbance, and anxiety Plan Patient is an 86-year-old female with a PMH significant for history of breast cancer, psychosis, and dementia who is seen in [facility] after testing positive for COVID yesterday. Acute COVID infection Patient hypoxic, not on supplemental O2, Decadron not indicated Remdesivir x3 days Close monitoring of respiratory status Thank you for allowing us to participate in the care of this patient. Signing off at this time. Please contact us if patient becomes hypoxic, or with any acute questions or concerns. Psychiatry 1. Continue with same treatment. 2. Continue with the recommendations of Medicine for COVID treatment. 3. Waiting for placement. 05/06 continue tx. 05/07 continue tx. 05/08 continue tx. Reason for contiued inpatient stay Substantial Risk for: inability to function Time Spent With Patient Time: Total time managing care of this patient today ____ minutes.
[2022-05-08 13:00] VITALS: BP 151/72; PULSE 72; RESP 18; TEMP 36.3; O2SAT 96
[2022-05-08] MEDS: Ibuprofen 600 MG TABLET PO (17:25)
[2022-05-08] MEDS: traZODone HCL 50 MG TABLET PO (20:02)
[2022-05-08] MEDS: amLODIPine Besylate 10 MG TABLET PO (20:02)
[2022-05-08] MEDS: OLANZapine 5 MG TABLET PO (20:02)
[2022-05-08 20:03] VITALS: BP 148/70; PULSE 74; RESP 18; TEMP 36.8; O2SAT 95
--- NOTE | 2022-05-08 20:21 | PC.NURSE ---
PT refusing Amoxil 500mg at 2100, MD Lim notified, RN will reapproach.
--- NOTE | 2022-05-09 10:21 | HO.PSYCHPN ---
Subjective Subjective Date of Service: 05/09/22 Reason For Visit: Mood Subjective Notes: Section 7 and Section 8 Interim History: The nursing staff reported the patient refused her amoxicillin last night. She came positive to COVID 19 and she needed IV antiviral is. Last night she refused her vital signs and she was very restless refused her amoxicillin. Today on interview the patient looks confused and tired I explained her that she needs to take antibiotics and we will do her dentist appointment as soon as she is off precautions. She looks acutely sick with COVID Mental Status Exam Mental Status Exam Patient Appearance: Disheveled and Unkempt Patient Orientation: Person and Situation Level of Consciousness: Awake and Appropriate Patient Behavior: Guarded and Passive Mood Description: Labile Affect Description: Constricted Patient Cognition Impaired: Yes Ability to Follow Directions: Good Speech Pattern: Clear Hallucinations: None Delusions: Paranoid Ideation Thought Process: Distracted and Evasive Thought Content: positive for [place] and positive for Circumstantial Judgement: Fair Diagnostics Vital Signs (24Hr): Vital Signs - 24 hr 05/08/22 13:00 05/08/22 20:03 Temperature 97.4 F 98.2 F Pulse Rate 72 74 Respiratory Rate 18 18 Blood Pressure 151/72 H 148/70 H Pulse Oximetry 96 95 Oxygen Delivery Method Room Air Room Air BMI result Body Mass Index 26.9 Labs 01/20/22 08:00 01/20/22 08:00 Imaging Radiology Impressions: ITS Impressions Chest CT 01/10/22 15:11 IMPRESSION: Bilateral small pulmonary nodules, left greater than right. Biapical pleural and parenchymal scarring. 1.1 x 1.4 cm heterogeneous or semisolid right apical nodule, question related to pleural and parenchymal scarring. 1.5 cm partially calcified left thyroid nodule. Based on patient age in size, this does not meet criteria for follow-up. Moderate coronary artery calcification. Fleischner guidelines were followed. Chest CT 04/01/22 14:44 IMPRESSION: *Unchanged semisolid 1.5 cm x 1.0 cm nodule within the apex of the right pulmonary lobe. Per the Fleischner Society 2017 revised guidelines, as clinically indicated recommend annual screening CT to demonstrate stability to demonstrate ultimate 5 year stability. *Unchanged small number of scattered solid pulmonary nodules ranging in size up to 6 mm diameter stable compared with 01/10/2022. *Moderate-marked diffuse coronary artery calcific atherosclerosis. *Partially visualized posttreatment related changes of the right breast. Head CT 04/18/22 09:11 IMPRESSION: No acute intracranial pathology. Medications Medications Current Medications Acetaminophen (Acetaminophen 325 Mg Tablet) 650 mg PO Q6H PRN PRN Reason: Pain, Moderate (Pain Scale 4-6 Last Admin: 05/08/22 20:01 Dose: 650 mg Amlodipine Besylate (Amlodipine Besylate 10 Mg Tablet) 10 mg PO BEDTIME TIMOTEO; Protocol Last Admin: 05/08/22 20:02 Dose: 10 mg Amoxicillin (Amoxicillin 500 Mg Capsule) 500 mg PO TID TIMOTEO Stop: 05/15/22 15:01 Last Admin: 05/08/22 20:10 Dose: Not Given Docusate Sodium (Docusate Sodium 100 Mg Capsule) 100 mg PO BID PRN PRN Reason: Constipation Last Admin: 05/03/22 10:39 Dose: 100 mg Hydrochlorothiazide (Hydrochlorothiazide 12.5 Mg Tablet) 12.5 mg PO DAILY TIMOTEO; Protocol Last Admin: 05/08/22 09:12 Dose: 12.5 mg Ibuprofen (Ibuprofen 600 Mg Tablet) 600 mg PO Q8H PRN PRN Reason: pain not relieved by tylenol Last Admin: 05/08/22 17:25 Dose: 600 mg Lidocaine/Diphenhydr/Alum/Mg/Simeth (Mag&Al/Sim/Diphenhyd/Lidocaine 10 Ml Oral.Susp) 10 ml PO Q4H PRN; Protocol PRN Reason: Sore Throat Olanzapine (Olanzapine 5 Mg Tablet) 5 mg PO BEDTIME TIMOTEO Last Admin: 05/08/22 20:02 Dose: 5 mg Olanzapine (Olanzapine 10 Mg Vial) 5 mg IM BEDTIME PRN PRN Reason: refusal of PO Last Admin: 04/04/22 23:12 Dose: 5 mg Oxybutynin Chloride (Oxybutynin Chloride Er 5 Mg Tab.Er.24) 10 mg PO DAILY TIMOTEO Last Admin: 05/08/22 09:12 Dose: 10 mg Trazodone HCl (Trazodone Hcl 50 Mg Tablet) 50 mg PO BEDTIME PRN PRN Reason: insomnia Last Admin: 05/08/22 20:02 Dose: 50 mg Allergies Allergies Allergy/AdvReac Type Severity Reaction Status Date / Time codeine Allergy Unknown Unknown Verified 12/15/21 18:29 sulfadiazine Allergy Unknown Unknown Verified 12/15/21 18:29 Assessment & Plan Assessment & Plan (1) Dementia: Status: Acute Code(s): F03.90 - Unspecified dementia, unspecified severity, without behavioral disturbance, psychotic disturbance, mood disturbance, and anxiety Plan Patient is an 86-year-old female with a PMH significant for history of breast cancer, psychosis, and dementia who is seen in [facility] after testing positive for COVID yesterday. Acute COVID infection Patient hypoxic, not on supplemental O2, Decadron not indicated Remdesivir x3 days Close monitoring of respiratory status Thank you for allowing us to participate in the care of this patient. Signing off at this time. Please contact us if patient becomes hypoxic, or with any acute questions or concerns. Psychiatry 1. Continue with same treatment. 2. Continue with the recommendations of Medicine for COVID treatment. 3. Waiting for placement. Reason for contiued inpatient stay Substantial Risk for: inability to function, rapid decompensation and med/psych decompensation Time Spent With Patient Time: Total time managing care of this patient today __20__ minutes.
--- NOTE | 2022-05-09 15:58 | HO.PM.IMPN ---
Subjective Subjective Date of Service: 05/09/22 Interval History: Seen in follow-up for COVID-19, encephalopathy, decreased p.o. intake Interval history. Nursing staff reporting patient is somnolent and barely arousable and has not been ambulatory which is not her baseline. She has also not been eating or drinking much and has been refusing medications. She is typically oriented x2 at baseline. Diagnosed with COVID-19 on 05/03 and treated with 3 days IV remdesivir. She is afebrile, vitals stable. She has no complaints but is not responding well to questions. Review of Systems Review of Systems: Yes Unobtainable due to mental status Physical Exam Vital Signs: Vital Signs: Last Vital Signs Temp 98.2 F 05/08/22 20:03 Pulse 74 05/08/22 20:03 Resp 18 05/08/22 20:03 BP 148/70 H 05/08/22 20:03 Pulse Ox 95 05/08/22 20:03 O2 Del Method 05/08/22 20:03 BMI result Body Mass Index 26.9 Constitutional - somnolent but arousable, No apparent distress Eyes - PERRLA, EOMI Cardiovascular - S1S2, RRR, No edema Respiratory - Normal lung expansion, Normal respiratory effort, No respiratory distress, CTA bilaterally Gastrointestinal - NT / ND; +BS; No rebound or guarding Extremities - no calf tenderness bilaterally, no swelling Skin - Warm/Dry Neurological - somnolent but arousable, nonresponsive to questions, unable to participate in neuro exam due to encephalopathy Psychological - Appropriate affect Objective Data Active Medications Acetaminophen (Acetaminophen 325 Mg Tablet) 650 mg PO Q6H PRN PRN Reason: Pain, Moderate (Pain Scale 4-6 Last Admin: 05/08/22 20:01 Dose: 650 mg Documented By: JAC Amlodipine Besylate (Amlodipine Besylate 10 Mg Tablet) 10 mg PO BEDTIME [facility]; Protocol Last Admin: 05/08/22 20:02 Dose: 10 mg Documented By: JAC Amoxicillin (Amoxicillin 500 Mg Capsule) 500 mg PO TID [facility] Stop: 05/15/22 15:01 Last Admin: 05/09/22 13:54 Dose: Not Given Documented By: ROHINI Non-Admin Reason: Patient Asleep Docusate Sodium (Docusate Sodium 100 Mg Capsule) 100 mg PO BID PRN PRN Reason: Constipation Last Admin: 05/03/22 10:39 Dose: 100 mg Documented By: NI Hydrochlorothiazide (Hydrochlorothiazide 12.5 Mg Tablet) 12.5 mg PO DAILY [facility]; Protocol Last Admin: 05/09/22 13:54 Dose: Not Given Documented By: ROHINI Non-Admin Reason: Patient Asleep Ibuprofen (Ibuprofen 600 Mg Tablet) 600 mg PO Q8H PRN PRN Reason: pain not relieved by tylenol Last Admin: 05/08/22 17:25 Dose: 600 mg Documented By: HAYES Lidocaine/Diphenhydr/Alum/Mg/Simeth (Mag&Al/Sim/Diphenhyd/Lidocaine 10 Ml Oral.Susp) 10 ml PO Q4H PRN; Protocol PRN Reason: Sore Throat Olanzapine (Olanzapine 5 Mg Tablet) 5 mg PO BEDTIME [facility] Last Admin: 05/08/22 20:02 Dose: 5 mg Documented By: JAC Olanzapine (Olanzapine 10 Mg Vial) 5 mg IM BEDTIME PRN PRN Reason: refusal of PO Last Admin: 04/04/22 23:12 Dose: 5 mg Documented By: HAYES Oxybutynin Chloride (Oxybutynin Chloride Er 5 Mg Tab.Er.24) 10 mg PO DAILY [facility] Last Admin: 05/09/22 13:54 Dose: Not Given Documented By: ROHINI Non-Admin Reason: Patient Asleep Trazodone HCl (Trazodone Hcl 50 Mg Tablet) 50 mg PO BEDTIME PRN PRN Reason: insomnia Last Admin: 05/08/22 20:02 Dose: 50 mg Documented By: JAC Labs 01/20/22 08:00 01/20/22 08:00 Assessment and Plan (1) COVID: Status: Acute (2) Metabolic encephalopathy: Status: Acute Plan 86-year-old female with history breast cancer, unspecified dementia with behavioral disturbance, and recent diagnosis of COVID-19 on 05/03 treated with 3 days IV remdesivir admitted to Psychiatry with consult placed to Medicine for management of COVID-19, encephalopathy, decreased p.o. intake. #COVID-19 with metabolic encephalopathy -diagnosed on 05/03, treated with 3 days IV remdesivir -Encephalopathy could be related to COVID-19, however, onset is new so recommend addl work up -CXR, UA, CBC, CMP, ammonia, TSH with free T4 reflex, and ABG ordered -Encourage PO intake and monitor I&O -No hypoxia. She does not require steroids Will continue following for results. Time Spent With Patient Time: Total time managing care of this patient today ____ minutes. Quality Stroke Does the patient have a stroke diagnosis?: No VTE Prior VTE?: No VTE Risk Level:: Medical - low VTE Device Contraindication: Treatment Not Indicated VTE Drug Contraindication: Treatment Not Indicated
--- NOTE | 2022-05-09 16:18 | PC.RT ---
pt refused the ABG and also refused the CXR when I was present. PA aware as well as RN
[2022-05-09 18:00] VITALS: BP 160/74; PULSE 69; RESP 16; TEMP 37.2; O2SAT 94
[2022-05-09] MEDS: Acetaminophen 325 MG TABLET 650 MG PO (18:29)
[2022-05-09] MEDS: Amoxicillin 500 MG CAPSULE PO ×2 (18:30→20:44)
[2022-05-09] MEDS: amLODIPine Besylate 10 MG TABLET PO (20:44)
[2022-05-09] MEDS: OLANZapine 5 MG TABLET PO (20:44)
--- NOTE | 2022-05-10 12:33 | P.PNPSI_ITS ---
Subjective Subjective Date of Service: 05/10/22 Reason For Visit: Mood Subjective Notes: Section 7 and Section 8 Interim History: The nursing staff reported the patient refused her antibiotic last night. She took it today in the morning but she has been oversleeping, so pros all the time. The hospitalist saw her yesterday and recommended ABG another test but myke gill refused to have the blood work. Her chest x-ray came back within normal limits. The aids social worker reported that there were no beds in the intermediate facility so far. On interview the patient was soporous but VS stable, no desaturation, encephalopathic due to COVID. Mental Status Exam Mental Status Exam Patient Appearance: Disheveled and Appropriate Patient Orientation: Person and Situation Level of Consciousness: Awake and Appropriate Patient Behavior: Guarded Mood Description: Withdrawn and Constricted Affect Description: Labile Patient Cognition Impaired: Yes Ability to Follow Directions: Fair Speech Pattern: Impoverished and Garbled Hallucinations: None Delusions: Paranoid Ideation Thought Process: Distracted Thought Content: positive for Poverty of Content and positive for Thought Blocking Judgement: Poor Diagnostics Vital Signs (24Hr): Vital Signs - 24 hr 05/09/22 18:00 Temperature 99.0 F Pulse Rate 69 Respiratory Rate 16 Blood Pressure 160/74 H Pulse Oximetry 94 Oxygen Delivery Method Room Air BMI result Body Mass Index 26.9 Labs 01/20/22 08:00 01/20/22 08:00 Imaging Radiology Impressions: ITS Impressions Chest CT 01/10/22 15:11 IMPRESSION: Bilateral small pulmonary nodules, left greater than right. Biapical pleural and parenchymal scarring. 1.1 x 1.4 cm heterogeneous or semisolid right apical nodule, question related to pleural and parenchymal scarring. 1.5 cm partially calcified left thyroid nodule. Based on patient age in size, this does not meet criteria for follow-up. Moderate coronary artery calcification. Fleischner guidelines were followed. Chest CT 04/01/22 14:44 IMPRESSION: *Unchanged semisolid 1.5 cm x 1.0 cm nodule within the apex of the right pulmonary lobe. Per the Fleischner Society 2017 revised guidelines, as clinically indicated recommend annual screening CT to demonstrate stability to demonstrate ultimate 5 year stability. *Unchanged small number of scattered solid pulmonary nodules ranging in size up to 6 mm diameter stable compared with 01/10/2022. *Moderate-marked diffuse coronary artery calcific atherosclerosis. *Partially visualized posttreatment related changes of the right breast. Head CT 04/18/22 09:11 IMPRESSION: No acute intracranial pathology. Chest X-Ray 05/09/22 19:28 IMPRESSION: No acute intrathoracic disease. Medications Medications Current Medications Acetaminophen (Acetaminophen 325 Mg Tablet) 650 mg PO Q6H PRN PRN Reason: Pain, Moderate (Pain Scale 4-6 Last Admin: 05/09/22 18:29 Dose: 650 mg Amlodipine Besylate (Amlodipine Besylate 10 Mg Tablet) 10 mg PO BEDTIME [facility]; Protocol Last Admin: 05/09/22 20:44 Dose: 10 mg Amoxicillin (Amoxicillin 500 Mg Capsule) 500 mg PO TID [facility] Stop: 05/15/22 15:01 Last Admin: 05/09/22 20:44 Dose: 500 mg Docusate Sodium (Docusate Sodium 100 Mg Capsule) 100 mg PO BID PRN PRN Reason: Constipation Last Admin: 05/03/22 10:39 Dose: 100 mg Guaifenesin (Guaifenesin 100 Mg/5 Ml Liquid) 5 ml PO Q4H PRN PRN Reason: Cough Hydrochlorothiazide (Hydrochlorothiazide 12.5 Mg Tablet) 12.5 mg PO DAILY [facility]; Protocol Last Admin: 05/10/22 12:09 Dose: Not Given Ibuprofen (Ibuprofen 600 Mg Tablet) 600 mg PO Q8H PRN PRN Reason: pain not relieved by tylenol Last Admin: 05/08/22 17:25 Dose: 600 mg Lidocaine/Diphenhydr/Alum/Mg/Simeth (Mag&Al/Sim/Diphenhyd/Lidocaine 10 Ml Oral.Susp) 10 ml PO Q4H PRN; Protocol PRN Reason: Sore Throat Olanzapine (Olanzapine 5 Mg Tablet) 5 mg PO BEDTIME [facility] Last Admin: 05/09/22 20:44 Dose: 5 mg Olanzapine (Olanzapine 10 Mg Vial) 5 mg IM BEDTIME PRN PRN Reason: refusal of PO Last Admin: 04/04/22 23:12 Dose: 5 mg Oxybutynin Chloride (Oxybutynin Chloride Er 5 Mg Tab.Er.24) 10 mg PO DAILY [facility] Last Admin: 05/10/22 12:09 Dose: Not Given Trazodone HCl (Trazodone Hcl 50 Mg Tablet) 50 mg PO BEDTIME PRN PRN Reason: insomnia Last Admin: 05/08/22 20:02 Dose: 50 mg Allergies Allergies Allergy/AdvReac Type Severity Reaction Status Date / Time codeine Allergy Unknown Unknown Verified 12/15/21 18:29 sulfadiazine Allergy Unknown Unknown Verified 12/15/21 18:29 Assessment & Plan Assessment & Plan (1) COVID: Status: Acute Code(s): U07.1 - COVID-19 (2) Metabolic encephalopathy: Status: Acute Code(s): G93.41 - Metabolic encephalopathy (3) Breast cancer: Status: Acute Code(s): C50.919 - Malignant neoplasm of unspecified site of unspecified female breast (4) Psychosis: Status: Acute Code(s): F29 - Unspecified psychosis not due to a substance or known physiological condition (5) Dementia: Status: Acute Code(s): F03.90 - Unspecified dementia, unspecified severity, without behavioral disturbance, psychotic disturbance, mood disturbance, and anxiety Plan 86-year-old female with history breast cancer, unspecified dementia with behavioral disturbance, and recent diagnosis of COVID-19 on 05/03 treated with 3 days IV remdesivir admitted to Psychiatry with consult placed to Medicine for management of COVID-19, encephalopathy, decreased p.o. intake. #COVID-19 with metabolic encephalopathy -diagnosed on 05/03, treated with 3 days IV remdesivir -Encephalopathy could be related to COVID-19, however, onset is new so recommend addl work up -CXR, UA, CBC, CMP, ammonia, TSH with free T4 reflex, and ABG ordered -Encourage PO intake and monitor I&O -No hypoxia. She does not require steroids Will continue following for results. Psychiatry 1. Continue with hospitalist recommendations. 2. Continue with same treatment. 3. Waiting for placement. Reason for contiued inpatient stay Substantial Risk for: inability to function, rapid decompensation and med/psych decompensation Time Spent With Patient Time: Total time managing care of this patient today __20__ minutes.
[2022-05-10] MEDS: Amoxicillin 500 MG CAPSULE PO ×2 (12:42→20:15)
[2022-05-10 18:00] VITALS: BP 160/84; PULSE 78; RESP 16; TEMP 37.5; O2SAT 93
[2022-05-10] MEDS: amLODIPine Besylate 10 MG TABLET PO (20:15)
[2022-05-10] MEDS: OLANZapine 5 MG TABLET PO (20:15)
--- NOTE | 2022-05-11 08:22 | HO.PSYCHPN ---
Subjective Subjective Date of Service: 05/11/22 Reason For Visit: Mood Subjective Notes: Section 7 and Section 8 Interim History: The nursing staff reported the patient had been in her room most of the time confused and tired. She has been compliant with medications. On interview the patient was is sleepy, her vital signs are normal at this moment, she complained of toothache and I advised her to take her ATB. Mental Status Exam Mental Status Exam Patient Appearance: Appropriate Patient Orientation: Person Level of Consciousness: Disoriented, Restless and Obtunded Patient Behavior: Guarded and Passive Mood Description: Withdrawn Affect Description: Blunted Patient Cognition Impaired: Yes Ability to Follow Directions: Fair Speech Pattern: No Speech Hallucinations: None Delusions: Paranoid Ideation Thought Process: Slowed Thinking Thought Content: positive for Thought Blocking Judgement: Poor Diagnostics Vital Signs (24Hr): Vital Signs - 24 hr 05/10/22 18:00 Temperature 99.5 F Pulse Rate 78 Respiratory Rate 16 Blood Pressure 160/84 H Pulse Oximetry 93 Oxygen Delivery Method Room Air BMI result Body Mass Index 26.9 Labs 01/20/22 08:00 01/20/22 08:00 Imaging Radiology Impressions: ITS Impressions Chest CT 01/10/22 15:11 IMPRESSION: Bilateral small pulmonary nodules, left greater than right. Biapical pleural and parenchymal scarring. 1.1 x 1.4 cm heterogeneous or semisolid right apical nodule, question related to pleural and parenchymal scarring. 1.5 cm partially calcified left thyroid nodule. Based on patient age in size, this does not meet criteria for follow-up. Moderate coronary artery calcification. Fleischner guidelines were followed. Chest CT 04/01/22 14:44 IMPRESSION: *Unchanged semisolid 1.5 cm x 1.0 cm nodule within the apex of the right pulmonary lobe. Per the Fleischner Society 2017 revised guidelines, as clinically indicated recommend annual screening CT to demonstrate stability to demonstrate ultimate 5 year stability. *Unchanged small number of scattered solid pulmonary nodules ranging in size up to 6 mm diameter stable compared with 01/10/2022. *Moderate-marked diffuse coronary artery calcific atherosclerosis. *Partially visualized posttreatment related changes of the right breast. Head CT 04/18/22 09:11 IMPRESSION: No acute intracranial pathology. Chest X-Ray 05/09/22 19:28 IMPRESSION: No acute intrathoracic disease. Medications Medications Current Medications Acetaminophen (Acetaminophen 325 Mg Tablet) 650 mg PO Q6H PRN PRN Reason: Pain, Moderate (Pain Scale 4-6 Last Admin: 05/09/22 18:29 Dose: 650 mg Amlodipine Besylate (Amlodipine Besylate 10 Mg Tablet) 10 mg PO BEDTIME [facility]; Protocol Last Admin: 05/10/22 20:15 Dose: 10 mg Amoxicillin (Amoxicillin 500 Mg Capsule) 500 mg PO TID [facility] Stop: 05/15/22 15:01 Last Admin: 05/10/22 20:15 Dose: 500 mg Docusate Sodium (Docusate Sodium 100 Mg Capsule) 100 mg PO BID PRN PRN Reason: Constipation Last Admin: 05/03/22 10:39 Dose: 100 mg Guaifenesin (Guaifenesin 100 Mg/5 Ml Liquid) 5 ml PO Q4H PRN PRN Reason: Cough Hydrochlorothiazide (Hydrochlorothiazide 12.5 Mg Tablet) 12.5 mg PO DAILY [facility]; Protocol Last Admin: 05/10/22 12:09 Dose: Not Given Ibuprofen (Ibuprofen 600 Mg Tablet) 600 mg PO Q8H PRN PRN Reason: pain not relieved by tylenol Last Admin: 05/08/22 17:25 Dose: 600 mg Lidocaine/Diphenhydr/Alum/Mg/Simeth (Mag&Al/Sim/Diphenhyd/Lidocaine 10 Ml Oral.Susp) 10 ml PO Q4H PRN; Protocol PRN Reason: Sore Throat Olanzapine (Olanzapine 5 Mg Tablet) 5 mg PO BEDTIME [facility] Last Admin: 05/10/22 20:15 Dose: 5 mg Olanzapine (Olanzapine 10 Mg Vial) 5 mg IM BEDTIME PRN PRN Reason: refusal of PO Last Admin: 04/04/22 23:12 Dose: 5 mg Oxybutynin Chloride (Oxybutynin Chloride Er 5 Mg Tab.Er.24) 10 mg PO DAILY [facility] Last Admin: 05/10/22 12:09 Dose: Not Given Trazodone HCl (Trazodone Hcl 50 Mg Tablet) 50 mg PO BEDTIME PRN PRN Reason: insomnia Last Admin: 05/08/22 20:02 Dose: 50 mg Allergies Allergies Allergy/AdvReac Type Severity Reaction Status Date / Time codeine Allergy Unknown Unknown Verified 12/15/21 18:29 sulfadiazine Allergy Unknown Unknown Verified 12/15/21 18:29 Assessment & Plan Assessment & Plan (1) COVID: Status: Acute Code(s): U07.1 - COVID-19 (2) Metabolic encephalopathy: Status: Acute Code(s): G93.41 - Metabolic encephalopathy (3) Breast cancer: Status: Acute Code(s): C50.919 - Malignant neoplasm of unspecified site of unspecified female breast (4) Psychosis: Status: Acute Code(s): F29 - Unspecified psychosis not due to a substance or known physiological condition (5) Dementia: Status: Acute Code(s): F03.90 - Unspecified dementia, unspecified severity, without behavioral disturbance, psychotic disturbance, mood disturbance, and anxiety Plan 86-year-old female with history breast cancer, unspecified dementia with behavioral disturbance, and recent diagnosis of COVID-19 on 05/03 treated with 3 days IV remdesivir admitted to Psychiatry with consult placed to Medicine for management of COVID-19, encephalopathy, decreased p.o. intake. #COVID-19 with metabolic encephalopathy -diagnosed on 05/03, treated with 3 days IV remdesivir -Encephalopathy could be related to COVID-19, however, onset is new so recommend addl work up -CXR, UA, CBC, CMP, ammonia, TSH with free T4 reflex, and ABG ordered -Encourage PO intake and monitor I&O -No hypoxia. She does not require steroids Will continue following for results. Psychiatry 1. Continue with hospitalist recommendations. 2. Continue with same treatment. 3. Waiting for placement. 4. Currently she is encephalopathic due to COVID-19. Reason for contiued inpatient stay Substantial Risk for: inability to function, rapid decompensation and med/psych decompensation Time Spent With Patient Time: Total time managing care of this patient today ____ minutes.
[2022-05-11 18:00] VITALS: RESP 17
[2022-05-11] MEDS: OLANZapine 5 MG TABLET PO (20:19)
[2022-05-12 06:00] VITALS: BP 175/84; PULSE 90; RESP 16; TEMP 36.8; O2SAT 94
[2022-05-12] MEDS: Amoxicillin 500 MG CAPSULE PO (09:02)
[2022-05-12] MEDS: hydroCHLOROthiazide 12.5 MG TABLET PO (09:03)
[2022-05-12 09:36] LABS: MANUAL DIFF FLAG NO
[2022-05-12 09:40] LABS: Basophils Absolute Auto 0.1 X10*3/uL (0.0-0.2); Basophils Percent Auto 0.6 % (0-2); Eosinophils Absolute Auto 0.2 X10*3/uL (0.0-0.4); Eosinophils Percent Auto 1.8 % (0-4); Hematocrit 47.3 % (37.0-47.0); Hemoglobin 15.7 g/dl (12.0-16.0); Imm Gran Abs Auto 0.05 X10*3/uL (0.00-0.03); Imm Gran Pct Auto 0.5 % (0.0-0.4); Lymphocytes Absolute Auto 1.3 X10*3/uL (1.2-4.9); Lymphocytes Percent Auto 13.5 % (20-40); Mean Corpuscular HGB Conc 33.2 g/dl (31.0-35.0); Mean Corpuscular Volume 90.3 fL (80.0-98.0); Mean Platelet Volume 9.7 fL (9.4-12.3); Monocytes Absolute Auto 0.7 X10*3/uL (0.1-1.2); Monocytes Percent Auto 7.8 % (2-11); Neutrophils Absolute Auto 7.1 x10*3/uL (2.0-8.3); Neutrophils Percent Auto 75.8 % (45-73); Platelet Count 267 X10*3/uL (160-400); Red Blood Count 5.24 X10*6/uL (4.20-5.50); Red Cell Distribution Width 12.5 % (11.0-16.0); White Blood Count 9.4 X10*3/uL (4.8-10.8)
[2022-05-12 10:00] VITALS: BP 145/67; PULSE 72; RESP 16; TEMP 36.8; O2SAT 94
[2022-05-12 10:03] LABS: Alanine Aminotransferase 18 U/L (0-31); Albumin Level 3.6 g/dL (3.5-5.0); Alkaline Phosphatase 74 U/L (39-117); Anion Gap 16 (12-20); Aspartate Amino Transferase 18 U/L (5-31); Bilirubin Direct 0.2 mg/dL (0.0-0.5); Bilirubin Total 0.6 mg/dL (0.0-1.0); Blood Urea Nitrogen 19 mg/dL (9-16); Calcium 9.3 mg/dL (8.4-10.2); Carbon Dioxide 29 mmol/L (22-29); Chloride 101 mmol/L (96-108); Cholesterol 186 mg/dL; Creatinine Clr Calc Pharmacy 41.3; Estimated Glomerular Filt Rate 48; HDL Cholesterol 30 mg/dL; LDL Cholesterol Calculated 110 mg/dl; Potassium 4.5 mmol/L (3.3-5.1); Sodium 141 mmol/L (135-145); Total Protein 6.5 g/dL (6.5-8.0); Triglycerides 230 mg/dL
[2022-05-12 10:12] LABS: Glucose Random 453 mg/dL (60-115)
--- NOTE | 2022-05-12 10:16 | PC.NURSE ---
Yudith from lab called at 1010 to report critical lab value of blood glucose 453. Dr. Quintanilla notified at 1012, instructed to start fasting and do a fasting POC in one hour.
[2022-05-12 11:13] LABS: Glucose, Whole Blood 477 mg/dL (60-115)
--- NOTE | 2022-05-12 11:19 | PC.NURSE ---
fasting POC 477. Dr. Quintanilla notified, and called hospitalist. Dr. Knox will see pt.
[2022-05-12] MEDS: Insulin Lispro 100 UNIT/ML 3 ML VIAL 10 UNIT SUBCUT (12:50)
--- NOTE | 2022-05-12 13:43 | HO.PSYCHPN ---
Subjective Subjective Date of Service: 05/12/22 Reason For Visit: Mood Subjective Notes: Conditional Voluntary Interim History: The nursing staff reported the patient took her antibiotics for the 1st time today in the morning. She looks very seek and encephalopathic at times. I ordered blood work today and her blood sugar came over 400 we repeated the fingerstick and he was same. I consulted Medicine and they will follow-up soon. On interview the patient looks slightly confused but she was agreeable with the physical exam with a lot of encouragement. Mental Status Exam Mental Status Exam Patient Appearance: Well Grooomed and Appropriate Patient Orientation: Person and Situation Level of Consciousness: Disoriented, Restless and Lethargic Patient Behavior: Guarded and Passive Mood Description: Withdrawn Affect Description: Labile Patient Cognition Impaired: Yes Ability to Follow Directions: Fair Speech Pattern: Clear Hallucinations: None Delusions: Paranoid Ideation Thought Process: Illogical and Slowed Thinking Thought Content: positive for Poverty of Content Judgement: Poor Diagnostics Vital Signs (24Hr): Vital Signs - 24 hr 05/11/22 18:00 05/12/22 06:00 05/12/22 10:00 Temperature 98.3 F 98.2 F Pulse Rate 90 72 Respiratory Rate 17 16 16 Blood Pressure 175/84 H 145/67 H Pulse Oximetry 94 94 Oxygen Delivery Method Room Air Room Air BMI result Body Mass Index 26.9 Labs 05/12/22 09:30 05/12/22 09:30 Labs: Laboratory Results - last 48 hr 05/12/22 05/12/22 05/12/22 09:30 09:30 11:08 WBC 9.4 RBC 5.24 D Hgb 15.7 Hct 47.3 H MCV 90.3 MCH 30.0 MCHC 33.2 RDW 12.5 Plt Count 267 D MPV 9.7 Immature Gran % (Auto) 0.5 H Neut % (Auto) 75.8 H Lymph % (Auto) 13.5 L [place] % (Auto) 7.8 Eos % (Auto) 1.8 Baso % (Auto) 0.6 Lymph # (Auto) 1.3 [place] # (Auto) 0.7 Eos # (Auto) 0.2 Baso # (Auto) 0.1 Abs Immat Gran (auto) 0.05 H Absolute Neuts (auto) 7.1 Absolute Nucleated RBC 0.000 Nucleated RBC % (auto) 0.0 Sodium 141 Potassium 4.5 Chloride 101 Carbon Dioxide 29 Anion Gap 16 BUN 19 H Creatinine 1.09 Estim Creat Clear Calc 41.3 Estimated GFR 48 POC Glucose 477 H* Random Glucose 453 H* Calcium 9.3 Total Bilirubin 0.6 Direct Bilirubin 0.2 AST 18 ALT 18 Alkaline Phosphatase 74 Total Protein 6.5 Albumin 3.6 Triglycerides 230 Cholesterol 186 LDL Cholesterol, Calc 110 HDL Cholesterol 30 Imaging Radiology Impressions: ITS Impressions Chest CT 01/10/22 15:11 IMPRESSION: Bilateral small pulmonary nodules, left greater than right. Biapical pleural and parenchymal scarring. 1.1 x 1.4 cm heterogeneous or semisolid right apical nodule, question related to pleural and parenchymal scarring. 1.5 cm partially calcified left thyroid nodule. Based on patient age in size, this does not meet criteria for follow-up. Moderate coronary artery calcification. Fleischner guidelines were followed. Chest CT 04/01/22 14:44 IMPRESSION: *Unchanged semisolid 1.5 cm x 1.0 cm nodule within the apex of the right pulmonary lobe. Per the Fleischner Society 2017 revised guidelines, as clinically indicated recommend annual screening CT to demonstrate stability to demonstrate ultimate 5 year stability. *Unchanged small number of scattered solid pulmonary nodules ranging in size up to 6 mm diameter stable compared with 01/10/2022. *Moderate-marked diffuse coronary artery calcific atherosclerosis. *Partially visualized posttreatment related changes of the right breast. Head CT 04/18/22 09:11 IMPRESSION: No acute intracranial pathology. Chest X-Ray 05/09/22 19:28 IMPRESSION: No acute intrathoracic disease. Medications Medications Current Medications Acetaminophen (Acetaminophen 325 Mg Tablet) 650 mg PO Q6H PRN PRN Reason: Pain, Moderate (Pain Scale 4-6 Last Admin: 05/09/22 18:29 Dose: 650 mg Amlodipine Besylate (Amlodipine Besylate 10 Mg Tablet) 10 mg PO BEDTIME [facility]; Protocol Last Admin: 05/11/22 20:19 Dose: Not Given Amoxicillin (Amoxicillin 500 Mg Capsule) 500 mg PO TID [facility] Stop: 05/15/22 15:01 Last Admin: 05/12/22 09:02 Dose: 500 mg Docusate Sodium (Docusate Sodium 100 Mg Capsule) 100 mg PO BID PRN PRN Reason: Constipation Last Admin: 05/03/22 10:39 Dose: 100 mg Guaifenesin (Guaifenesin 100 Mg/5 Ml Liquid) 5 ml PO Q4H PRN PRN Reason: Cough Hydrochlorothiazide (Hydrochlorothiazide 12.5 Mg Tablet) 12.5 mg PO DAILY [facility]; Protocol Last Admin: 05/12/22 09:03 Dose: 12.5 mg Ibuprofen (Ibuprofen 600 Mg Tablet) 600 mg PO Q8H PRN PRN Reason: pain not relieved by tylenol Last Admin: 05/08/22 17:25 Dose: 600 mg Insulin Human Lispro (Insulin Lispro 100 Unit/Ml 3 Ml Vial) 0 unit SUBCUT QIDACHS [facility]; Protocol Last Admin: 05/12/22 13:19 Dose: Not Given Lidocaine/Diphenhydr/Alum/Mg/Simeth (Mag&Al/Sim/Diphenhyd/Lidocaine 10 Ml Oral.Susp) 10 ml PO Q4H PRN; Protocol PRN Reason: Sore Throat Olanzapine (Olanzapine 5 Mg Tablet) 5 mg PO BEDTIME [facility] Last Admin: 05/11/22 20:19 Dose: 5 mg Olanzapine (Olanzapine 10 Mg Vial) 5 mg IM BEDTIME PRN PRN Reason: refusal of PO Last Admin: 04/04/22 23:12 Dose: 5 mg Oxybutynin Chloride (Oxybutynin Chloride Er 5 Mg Tab.Er.24) 10 mg PO DAILY [facility] Last Admin: 05/12/22 09:03 Dose: 10 mg Oxycodone HCl (Oxycodone Hcl Immed Release 5 Mg Tablet) 5 mg PO Q6H PRN PRN Reason: Pain, Severe (Pain Scale 7-10) Trazodone HCl (Trazodone Hcl 50 Mg Tablet) 50 mg PO BEDTIME PRN PRN Reason: insomnia Last Admin: 05/08/22 20:02 Dose: 50 mg Allergies Allergies Allergy/AdvReac Type Severity Reaction Status Date / Time codeine Allergy Unknown Unknown Verified 12/15/21 18:29 sulfadiazine Allergy Unknown Unknown Verified 12/15/21 18:29 Assessment & Plan Assessment & Plan (1) COVID: Status: Acute Code(s): U07.1 - COVID-19 (2) Metabolic encephalopathy: Status: Acute Code(s): G93.41 - Metabolic encephalopathy (3) Breast cancer: Status: Acute Code(s): C50.919 - Malignant neoplasm of unspecified site of unspecified female breast (4) Psychosis: Status: Acute Code(s): F29 - Unspecified psychosis not due to a substance or known physiological condition (5) Dementia: Status: Acute Code(s): F03.90 - Unspecified dementia, unspecified severity, without behavioral disturbance, psychotic disturbance, mood disturbance, and anxiety Plan 86-year-old female with history breast cancer, unspecified dementia with behavioral disturbance, and recent diagnosis of COVID-19 on 05/03 treated with 3 days IV remdesivir admitted to Psychiatry with consult placed to Medicine for management of COVID-19, encephalopathy, decreased p.o. intake. #COVID-19 with metabolic encephalopathy -diagnosed on 05/03, treated with 3 days IV remdesivir -Encephalopathy could be related to COVID-19, however, onset is new so recommend addl work up -CXR, UA, CBC, CMP, ammonia, TSH with free T4 reflex, and ABG ordered -Encourage PO intake and monitor I&O -No hypoxia. She does not require steroids Will continue following for results. Psychiatry 1. Continue with hospitalist recommendations. 2. Continue with same treatment. 3. Waiting for placement. 4. Currently she is encephalopathic due to COVID-19. 5. F/U hospitalist consult. Reason for contiued inpatient stay Substantial Risk for: inability to function, rapid decompensation and med/psych decompensation Time Spent With Patient Time: Total time managing care of this patient today __20__ minutes.
--- NOTE | 2022-05-12 14:58 | HO.PM.IMPN ---
Subjective Subjective Date of Service: 05/12/22 Interval History: Called to see patient for elevated blood sugars previously seen after being diagnosed with COVID 19. patient seems to have become altered around the time of this diagnosis. based on previous medical exam, patient appears to be more awake and alert but per psych staff she is still not back to her baseline and less active then john. She has been being treated for a dental infection She was awake and alert and was able to tell me her name and that she was at [facility]. she denied any cough or shortness of breath. When questioned regarding diabetes she became frustrated and asked me to leave. physical exam was limited Constitutional Constitutional: Denies chills and Denies fever(s) Cardiovascular Cardiovascular: Denies chest pain and Denies dyspnea Respiratory Respiratory: Denies cough and Denies dyspnea Physical Exam Vital Signs: Vital Signs: Last Vital Signs Temp 98.2 F 05/12/22 10:00 Pulse 72 05/12/22 10:00 Resp 16 05/12/22 10:00 BP 145/67 H 05/12/22 10:00 Pulse Ox 94 05/12/22 10:00 O2 Del Method 05/12/22 10:00 BMI result Body Mass Index 26.9 Const: General: comfortable, alert and awake Nutritional Appearance: average body habitus Orientation/consciousness: oriented to person and oriented to place HEENT: Other: overall poor dentition, multiple fillings; left bottom tooth appears to have pus from inside tooth, no drainable abscess visible Resp: Effort & Inspection: normal respiratory effort, able to speak in complete sentences, no respiratory distress and no use of accessory muscles Cardio: Rate: regular rate Skin: Other: warm/dry Neuro: Other: able to move all four extremities General: oriented to person and oriented to place Psych: Insight: Limited insight present (Psych) Objective Data Active Medications Acetaminophen (Acetaminophen 325 Mg Tablet) 650 mg PO Q6H PRN PRN Reason: Pain, Moderate (Pain Scale 4-6 Last Admin: 05/09/22 18:29 Dose: 650 mg Documented By: ROHINI Amlodipine Besylate (Amlodipine Besylate 10 Mg Tablet) 10 mg PO BEDTIME [facility]; Protocol Last Admin: 05/11/22 20:19 Dose: Not Given Documented By: RENE Non-Admin Reason: Patient Refused Amoxicillin (Amoxicillin 500 Mg Capsule) 500 mg PO TID [facility] Stop: 05/15/22 15:01 Last Admin: 05/12/22 09:02 Dose: 500 mg Documented By: SERA Docusate Sodium (Docusate Sodium 100 Mg Capsule) 100 mg PO BID PRN PRN Reason: Constipation Last Admin: 05/03/22 10:39 Dose: 100 mg Documented By: NI Guaifenesin (Guaifenesin 100 Mg/5 Ml Liquid) 5 ml PO Q4H PRN PRN Reason: Cough Hydrochlorothiazide (Hydrochlorothiazide 12.5 Mg Tablet) 12.5 mg PO DAILY [facility]; Protocol Last Admin: 05/12/22 09:03 Dose: 12.5 mg Documented By: SERA Ibuprofen (Ibuprofen 600 Mg Tablet) 600 mg PO Q8H PRN PRN Reason: pain not relieved by tylenol Last Admin: 05/08/22 17:25 Dose: 600 mg Documented By: HAYES Insulin Human Lispro (Insulin Lispro 100 Unit/Ml 3 Ml Vial) 0 unit SUBCUT QIDACHS [facility]; Protocol Last Admin: 05/12/22 13:19 Dose: Not Given Documented By: SERA Non-Admin Reason: Previously Administered Lidocaine/Diphenhydr/Alum/Mg/Simeth (Mag&Al/Sim/Diphenhyd/Lidocaine 10 Ml Oral.Susp) 10 ml PO Q4H PRN; Protocol PRN Reason: Sore Throat Olanzapine (Olanzapine 5 Mg Tablet) 5 mg PO BEDTIME [facility] Last Admin: 05/11/22 20:19 Dose: 5 mg Documented By: AIMEE-CATHERINE Olanzapine (Olanzapine 10 Mg Vial) 5 mg IM BEDTIME PRN PRN Reason: refusal of PO Last Admin: 04/04/22 23:12 Dose: 5 mg Documented By: HAYES Oxybutynin Chloride (Oxybutynin Chloride Er 5 Mg Tab.Er.24) 10 mg PO DAILY [facility] Last Admin: 05/12/22 09:03 Dose: 10 mg Documented By: SERA Oxycodone HCl (Oxycodone Hcl Immed Release 5 Mg Tablet) 5 mg PO Q6H PRN PRN Reason: Pain, Severe (Pain Scale 7-10) Trazodone HCl (Trazodone Hcl 50 Mg Tablet) 50 mg PO BEDTIME PRN PRN Reason: insomnia Last Admin: 05/08/22 20:02 Dose: 50 mg Documented By: JAC Labs 05/12/22 09:30 05/12/22 09:30 Labs: Laboratory Results - last 24 hr 05/12/22 05/12/22 05/12/22 09:30 09:30 11:08 MCV 90.3 MCH 30.0 MCHC 33.2 RDW 12.5 Plt Count 267 D MPV 9.7 Immature Gran % (Auto) 0.5 H Neut % (Auto) 75.8 H Lymph % (Auto) 13.5 L [place] % (Auto) 7.8 Eos % (Auto) 1.8 Baso % (Auto) 0.6 Lymph # (Auto) 1.3 [place] # (Auto) 0.7 Eos # (Auto) 0.2 Baso # (Auto) 0.1 Abs Immat Gran (auto) 0.05 H Absolute Neuts (auto) 7.1 Absolute Nucleated RBC 0.000 Nucleated RBC % (auto) 0.0 Anion Gap 16 Estim Creat Clear Calc 41.3 Estimated GFR 48 POC Glucose 477 H* Random Glucose 453 H* Calcium 9.3 Total Bilirubin 0.6 Direct Bilirubin 0.2 AST 18 ALT 18 Alkaline Phosphatase 74 Total Protein 6.5 Albumin 3.6 Triglycerides 230 Cholesterol 186 LDL Cholesterol, Calc 110 HDL Cholesterol 30 Assessment and Plan (1) Diabetes mellitus with hyperglycemia: Status: Acute Plan This is an 86 year old female with history of DM, breast cancer, dementia with behavioral disturbance, HTN, HLD, CKD3, pulmonary nodule initially brought to the ED in December after her who was her primary dental laboratory supervisor and her house was found to be uninhabitable. [facility] where she had been getting treatment for psychosis and paranoia, guardianship and Farooq's order obtained, and had been doing fairly well until she was diagnosed with covid 19 on 05/03. At that time she became more lethargic. hospital course complicated further by hyperglycemia. Diabetes with hyperglycemia Hba1c in January was 9.2 but has not been on any diabetic medication. Blood sugar up to 400s today changed to diabetic diet started on SSI, will follow POCs to obtain 24 hour insulin needs and then will add long acting insulin toxic metabolic encephalopathy alert and oriented x2 - seems to be at baseline but still with generalized weakness and decreased activity likely multifactorial from recent covid 19 infection, uncontrolled DM and dental infection Dental infection recommend augmentin x 10 days Covid 19 diagnosed 05/03 s/p remdesivir x 3 days cxr was negative at that time afebrile, no respiratory symptoms, no hypoxia at this time CKD3 creatinine stable HTN overall BP under adequate control continue HCTZ, norvasc Pulmonary nodules oncology following Mood continue management per psychiatric team Time Spent With Patient Time: Total time managing care of this patient today ____ minutes. Quality Stroke Does the patient have a stroke diagnosis?: No VTE Prior VTE?: No VTE Risk Level:: Medical - low VTE Device Contraindication: Treatment Not Indicated VTE Drug Contraindication: Treatment Not Indicated
[2022-05-12 15:58] LABS: Glucose, Whole Blood 183 mg/dL (60-115)
[2022-05-12] MEDS: Insulin Lispro 100 UNIT/ML 3 ML VIAL SUBCUT ×2 (15:59→21:27)
[2022-05-12 18:00] VITALS: PULSE 80; RESP 20; TEMP 37.3; O2SAT 94
[2022-05-12] MEDS: Amoxicillin/Potassium Clav 875 MG TABLET PO (21:10)
[2022-05-12] MEDS: amLODIPine Besylate 10 MG TABLET PO (21:10)
[2022-05-12] MEDS: OLANZapine 5 MG TABLET PO (21:10)
[2022-05-12 22:33] LABS: Glucose, Whole Blood 330 mg/dL (60-115)
[2022-05-13 08:05] LABS: Glucose, Whole Blood 295 mg/dL (60-115)
[2022-05-13] MEDS: Amoxicillin/Potassium Clav 875 MG TABLET PO ×2 (08:08→20:36)
[2022-05-13] MEDS: hydroCHLOROthiazide 12.5 MG TABLET PO (08:08)
[2022-05-13] MEDS: Insulin Lispro 100 UNIT/ML 3 ML VIAL SUBCUT ×4 (08:16→20:37)
[2022-05-13 11:45] LABS: Glucose, Whole Blood 356 mg/dL (60-115)
--- NOTE | 2022-05-13 12:07 | P.PNPSI_ITS ---
Subjective Subjective Date of Service: 05/13/22 Reason For Visit: Mood Interim History: sleeping on her bed, rousable. [place]. somewhat disorganized. no complaints or requests. per staff, med-compliant. tooth abscess? recent COVID infection, getting over it. awaiting placement, has guardian. Mental Status Exam Mental Status Exam Patient Appearance: Well Grooomed and Appropriate Patient Orientation: Person and Situation Level of Consciousness: Disoriented, Restless and Lethargic Patient Behavior: Guarded and Passive Mood Description: Withdrawn Affect Description: Labile Patient Cognition Impaired: Yes Ability to Follow Directions: Fair Speech Pattern: Clear Hallucinations: None Delusions: Paranoid Ideation Thought Process: Illogical and Slowed Thinking Thought Content: positive for Poverty of Content Judgement: Poor Diagnostics Vital Signs (24Hr): Vital Signs - 24 hr 05/12/22 18:00 Temperature 99.1 F Pulse Rate 80 Respiratory Rate 20 Pulse Oximetry 94 Oxygen Delivery Method Room Air BMI result Body Mass Index 26.9 Labs 05/12/22 09:30 05/12/22 09:30 Labs: Laboratory Results - last 48 hr 05/12/22 05/12/22 05/12/22 09:30 09:30 11:08 WBC 9.4 RBC 5.24 D Hgb 15.7 Hct 47.3 H MCV 90.3 MCH 30.0 MCHC 33.2 RDW 12.5 Plt Count 267 D MPV 9.7 Immature Gran % (Auto) 0.5 H Neut % (Auto) 75.8 H Lymph % (Auto) 13.5 L [place] % (Auto) 7.8 Eos % (Auto) 1.8 Baso % (Auto) 0.6 Lymph # (Auto) 1.3 [place] # (Auto) 0.7 Eos # (Auto) 0.2 Baso # (Auto) 0.1 Abs Immat Gran (auto) 0.05 H Absolute Neuts (auto) 7.1 Absolute Nucleated RBC 0.000 Nucleated RBC % (auto) 0.0 Sodium 141 Potassium 4.5 Chloride 101 Carbon Dioxide 29 Anion Gap 16 BUN 19 H Creatinine 1.09 Estim Creat Clear Calc 41.3 Estimated GFR 48 POC Glucose 477 H* Random Glucose 453 H* Calcium 9.3 Total Bilirubin 0.6 Direct Bilirubin 0.2 AST 18 ALT 18 Alkaline Phosphatase 74 Total Protein 6.5 Albumin 3.6 Triglycerides 230 Cholesterol 186 LDL Cholesterol, Calc 110 HDL Cholesterol 30 05/12/22 05/12/22 05/13/22 15:52 21:23 07:59 WBC RBC Hgb Hct MCV MCH MCHC RDW Plt Count MPV Immature Gran % (Auto) Neut % (Auto) Lymph % (Auto) [place] % (Auto) Eos % (Auto) Baso % (Auto) Lymph # (Auto) [place] # (Auto) Eos # (Auto) Baso # (Auto) Abs Immat Gran (auto) Absolute Neuts (auto) Absolute Nucleated RBC Nucleated RBC % (auto) Sodium Potassium Chloride Carbon Dioxide Anion Gap BUN Creatinine Estim Creat Clear Calc Estimated GFR POC Glucose 183 H 330 H 295 H Random Glucose Calcium Total Bilirubin Direct Bilirubin AST ALT Alkaline Phosphatase Total Protein Albumin Triglycerides Cholesterol LDL Cholesterol, Calc HDL Cholesterol 05/13/22 11:42 WBC RBC Hgb Hct MCV MCH MCHC RDW Plt Count MPV Immature Gran % (Auto) Neut % (Auto) Lymph % (Auto) [place] % (Auto) Eos % (Auto) Baso % (Auto) Lymph # (Auto) [place] # (Auto) Eos # (Auto) Baso # (Auto) Abs Immat Gran (auto) Absolute Neuts (auto) Absolute Nucleated RBC Nucleated RBC % (auto) Sodium Potassium Chloride Carbon Dioxide Anion Gap BUN Creatinine Estim Creat Clear Calc Estimated GFR POC Glucose 356 H* Random Glucose Calcium Total Bilirubin Direct Bilirubin AST ALT Alkaline Phosphatase Total Protein Albumin Triglycerides Cholesterol LDL Cholesterol, Calc HDL Cholesterol Imaging Radiology Impressions: ITS Impressions Chest CT 01/10/22 15:11 IMPRESSION: Bilateral small pulmonary nodules, left greater than right. Biapical pleural and parenchymal scarring. 1.1 x 1.4 cm heterogeneous or semisolid right apical nodule, question related to pleural and parenchymal scarring. 1.5 cm partially calcified left thyroid nodule. Based on patient age in size, this does not meet criteria for follow-up. Moderate coronary artery calcification. Fleischner guidelines were followed. Chest CT 04/01/22 14:44 IMPRESSION: *Unchanged semisolid 1.5 cm x 1.0 cm nodule within the apex of the right pulmonary lobe. Per the Fleischner Society 2017 revised guidelines, as clinically indicated recommend annual screening CT to demonstrate stability to demonstrate ultimate 5 year stability. *Unchanged small number of scattered solid pulmonary nodules ranging in size up to 6 mm diameter stable compared with 01/10/2022. *Moderate-marked diffuse coronary artery calcific atherosclerosis. *Partially visualized posttreatment related changes of the right breast. Head CT 04/18/22 09:11 IMPRESSION: No acute intracranial pathology. Chest X-Ray 05/09/22 19:28 IMPRESSION: No acute intrathoracic disease. Medications Medications Current Medications Acetaminophen (Acetaminophen 325 Mg Tablet) 650 mg PO Q6H PRN PRN Reason: Pain, Moderate (Pain Scale 4-6 Last Admin: 05/09/22 18:29 Dose: 650 mg Amlodipine Besylate (Amlodipine Besylate 10 Mg Tablet) 10 mg PO BEDTIME [facility]; Protocol Last Admin: 05/12/22 21:10 Dose: 10 mg Amoxicillin/Clavulanate Potassium (Amoxicillin/Potassium Clav 875 Mg Tablet) 875 mg PO Q12H [facility] Stop: 05/22/22 19:59 Last Admin: 05/13/22 08:08 Dose: 875 mg Docusate Sodium (Docusate Sodium 100 Mg Capsule) 100 mg PO BID PRN PRN Reason: Constipation Last Admin: 05/03/22 10:39 Dose: 100 mg Guaifenesin (Guaifenesin 100 Mg/5 Ml Liquid) 5 ml PO Q4H PRN PRN Reason: Cough Hydrochlorothiazide (Hydrochlorothiazide 12.5 Mg Tablet) 12.5 mg PO DAILY [facility]; Protocol Last Admin: 05/13/22 08:08 Dose: 12.5 mg Ibuprofen (Ibuprofen 600 Mg Tablet) 600 mg PO Q8H PRN PRN Reason: pain not relieved by tylenol Last Admin: 05/08/22 17:25 Dose: 600 mg Insulin Human Lispro (Insulin Lispro 100 Unit/Ml 3 Ml Vial) 0 unit SUBCUT QIDAC HS [facility]; Protocol Last Admin: 05/13/22 08:16 Dose: 6 unit Lidocaine/Diphenhydr/Alum/Mg/Simeth (Mag&Al/Sim/Diphenhyd/Lidocaine 10 Ml Oral.Susp) 10 ml PO Q4H PRN; Protocol PRN Reason: Sore Throat Olanzapine (Olanzapine 5 Mg Tablet) 5 mg PO BEDTIME [facility] Last Admin: 05/12/22 21:10 Dose: 5 mg Olanzapine (Olanzapine 10 Mg Vial) 5 mg IM BEDTIME PRN PRN Reason: refusal of PO Last Admin: 04/04/22 23:12 Dose: 5 mg Oxybutynin Chloride (Oxybutynin Chloride Er 5 Mg Tab.Er.24) 10 mg PO DAILY [facility] Last Admin: 05/13/22 08:08 Dose: 10 mg Oxycodone HCl (Oxycodone Hcl Immed Release 5 Mg Tablet) 5 mg PO Q6H PRN PRN Reason: Pain, Severe (Pain Scale 7-10) Trazodone HCl (Trazodone Hcl 50 Mg Tablet) 50 mg PO BEDTIME PRN PRN Reason: insomnia Last Admin: 05/08/22 20:02 Dose: 50 mg Allergies Allergies Allergy/AdvReac Type Severity Reaction Status Date / Time codeine Allergy Unknown Unknown Verified 12/15/21 18:29 sulfadiazine Allergy Unknown Unknown Verified 12/15/21 18:29 Assessment & Plan Assessment & Plan (1) Diabetes mellitus with hyperglycemia: Status: Acute Code(s): E11.65 - Type 2 diabetes mellitus with hyperglycemia (2) Psychosis: Status: Acute Code(s): F29 - Unspecified psychosis not due to a substance or known physiological condition (3) Dementia: Status: Acute Code(s): F03.90 - Unspecified dementia, unspecified severity, without behavioral disturbance, psychotic disturbance, mood disturbance, and anxiety Plan This is an 86 year old female with history of DM, breast cancer, dementia with behavioral disturbance, HTN, HLD, CKD3, pulmonary nodule initially brought to [facility] ED in December after her who was her primary head of science and her house was found to be uninhabitable. [facility] where she had been getting treatment for psychosis and paranoia, guardianship and Farooq's order obtained, and had been doing fairly well until she was diagnosed with covid 19 on 05/03. At that time she became more lethargic. hospital course complicated further by hyperglycemia. Diabetes with hyperglycemia Hba1c in January was 9.2 but has not been on any diabetic medication. Blood sugar up to 400s today changed to diabetic diet started on SSI, will follow POCs to obtain 24 hour insulin needs and then will add long acting insulin toxic metabolic encephalopathy alert and oriented x2 - seems to be at baseline but still with generalized weakness and decreased activity likely multifactorial from recent covid 19 infection, uncontrolled DM and dental infection Dental infection recommend augmentin x 10 days Covid 19 diagnosed 05/03 s/p remdesivir x 3 days cxr was negative at that time afebrile, no respiratory symptoms, no hypoxia at this time CKD3 creatinine stable HTN overall BP under adequate control continue HCTZ, norvasc Pulmonary nodules oncology following Mood continue management per psychiatric team Psychiatry 1. Continue with hospitalist recommendations.? 2. Continue with same treatment.? 3. Waiting for placement. 4. Currently she is encephalopathic due to COVID-19. 5. F/U hospitalist consult. Reason for contiued inpatient stay Substantial Risk for: inability to function and rapid decompensation Time Spent With Patient Time: Total time managing care of this patient today _15___ minutes.
[2022-05-13 16:29] LABS: Glucose, Whole Blood 205 mg/dL (60-115)
[2022-05-13 18:00] VITALS: BP 140/58; PULSE 68; RESP 16; TEMP 36.9; O2SAT 92
[2022-05-13 20:33] LABS: Glucose, Whole Blood 177 mg/dL (60-115)
[2022-05-13] MEDS: amLODIPine Besylate 10 MG TABLET PO (20:36)
[2022-05-13] MEDS: OLANZapine 5 MG TABLET PO (20:36)
[2022-05-14 07:49] LABS: Glucose, Whole Blood 215 mg/dL (60-115)
[2022-05-14] MEDS: Insulin Lispro 100 UNIT/ML 3 ML VIAL SUBCUT ×2 (08:11→11:29)
[2022-05-14] MEDS: hydroCHLOROthiazide 12.5 MG TABLET PO (08:11)
[2022-05-14] MEDS: Amoxicillin/Potassium Clav 875 MG TABLET PO ×2 (08:12→20:26)
[2022-05-14 08:30] VITALS: BP 141/71; PULSE 79; RESP 18; TEMP 36.9; O2SAT 97
[2022-05-14 11:25] LABS: Glucose, Whole Blood 243 mg/dL (60-115)
--- NOTE | 2022-05-14 12:35 | P.PNPSI_ITS ---
Subjective Subjective Date of Service: 05/14/22 Reason For Visit: Mood Interim History: no change in mgmt, stable presentation. per staff POC 215. got 4 units of insulin. poor PO intake yesterday. paranoid delusions. Mental Status Exam Mental Status Exam Patient Appearance: Well Grooomed and Appropriate Patient Orientation: Person and Situation Level of Consciousness: Disoriented, Restless and Lethargic Patient Behavior: Guarded and Passive Mood Description: Withdrawn Affect Description: Labile Patient Cognition Impaired: Yes Ability to Follow Directions: Fair Speech Pattern: Clear Hallucinations: None Delusions: Paranoid Ideation Thought Process: Illogical and Slowed Thinking Thought Content: positive for Poverty of Content Judgement: Poor Diagnostics Vital Signs (24Hr): Vital Signs - 24 hr 05/13/22 18:00 05/14/22 08:30 Temperature 98.5 F 98.5 F Pulse Rate 68 79 Respiratory Rate 16 18 Blood Pressure 140/58 H 141/71 H Pulse Oximetry 92 97 Oxygen Delivery Method Room Air Room Air BMI result Body Mass Index 26.9 Labs 05/12/22 09:30 05/12/22 09:30 Labs: Laboratory Results - last 48 hr 05/12/22 05/12/22 05/13/22 15:52 21:23 07:59 POC Glucose 183 H 330 H 295 H 05/13/22 05/13/22 05/13/22 11:42 16:26 20:25 POC Glucose 356 H* 205 H 177 H 05/14/22 05/14/22 07:44 11:17 POC Glucose 215 H 243 H Imaging Radiology Impressions: ITS Impressions Chest CT 01/10/22 15:11 IMPRESSION: Bilateral small pulmonary nodules, left greater than right. Biapical pleural and parenchymal scarring. 1.1 x 1.4 cm heterogeneous or semisolid right apical nodule, question related to pleural and parenchymal scarring. 1.5 cm partially calcified left thyroid nodule. Based on patient age in size, this does not meet criteria for follow-up. Moderate coronary artery calcification. Fleischner guidelines were followed. Chest CT 04/01/22 14:44 IMPRESSION: *Unchanged semisolid 1.5 cm x 1.0 cm nodule within the apex of the right pulmonary lobe. Per the Fleischner Society 2017 revised guidelines, as clinically indicated recommend annual screening CT to demonstrate stability to demonstrate ultimate 5 year stability. *Unchanged small number of scattered solid pulmonary nodules ranging in size up to 6 mm diameter stable compared with 01/10/2022. *Moderate-marked diffuse coronary artery calcific atherosclerosis. *Partially visualized posttreatment related changes of the right breast. Head CT 04/18/22 09:11 IMPRESSION: No acute intracranial pathology. Chest X-Ray 05/09/22 19:28 IMPRESSION: No acute intrathoracic disease. Medications Medications Current Medications Acetaminophen (Acetaminophen 325 Mg Tablet) 650 mg PO Q6H PRN PRN Reason: Pain, Moderate (Pain Scale 4-6 Last Admin: 05/09/22 18:29 Dose: 650 mg Amlodipine Besylate (Amlodipine Besylate 10 Mg Tablet) 10 mg PO BEDTIME [facility]; Protocol Last Admin: 05/13/22 20:36 Dose: 10 mg Amoxicillin/Clavulanate Potassium (Amoxicillin/Potassium Clav 875 Mg Tablet) 875 mg PO Q12H [facility] Stop: 05/22/22 19:59 Last Admin: 05/14/22 08:12 Dose: 875 mg Docusate Sodium (Docusate Sodium 100 Mg Capsule) 100 mg PO BID PRN PRN Reason: Constipation Last Admin: 05/03/22 10:39 Dose: 100 mg Guaifenesin (Guaifenesin 100 Mg/5 Ml Liquid) 5 ml PO Q4H PRN PRN Reason: Cough Hydrochlorothiazide (Hydrochlorothiazide 12.5 Mg Tablet) 12.5 mg PO DAILY [facility]; Protocol Last Admin: 05/14/22 08:11 Dose: 12.5 mg Ibuprofen (Ibuprofen 600 Mg Tablet) 600 mg PO Q8H PRN PRN Reason: pain not relieved by tylenol Last Admin: 05/08/22 17:25 Dose: 600 mg Insulin Human Lispro (Insulin Lispro 100 Unit/Ml 3 Ml Vial) 0 unit SUBCUT QIDACHS [facility]; Protocol Last Admin: 05/14/22 11:29 Dose: 4 unit Lidocaine/Diphenhydr/Alum/Mg/Simeth (Mag&Al/Sim/Diphenhyd/Lidocaine 10 Ml Oral.Susp) 10 ml PO Q4H PRN; Protocol PRN Reason: Sore Throat Olanzapine (Olanzapine 5 Mg Tablet) 5 mg PO BEDTIME [facility] Last Admin: 05/13/22 20:36 Dose: 5 mg Olanzapine (Olanzapine 10 Mg Vial) 5 mg IM BEDTIME PRN PRN Reason: refusal of PO Last Admin: 04/04/22 23:12 Dose: 5 mg Oxybutynin Chloride (Oxybutynin Chloride Er 5 Mg Tab.Er.24) 10 mg PO DAILY [facility] Last Admin: 05/14/22 08:11 Dose: 10 mg Oxycodone HCl (Oxycodone Hcl Immed Release 5 Mg Tablet) 5 mg PO Q6H PRN PRN Reason: Pain, Severe (Pain Scale 7-10) Trazodone HCl (Trazodone Hcl 50 Mg Tablet) 50 mg PO BEDTIME PRN PRN Reason: insomnia Last Admin: 05/08/22 20:02 Dose: 50 mg Allergies Allergies Allergy/AdvReac Type Severity Reaction Status Date / Time codeine Allergy Unknown Unknown Verified 12/15/21 18:29 sulfadiazine Allergy Unknown Unknown Verified 12/15/21 18:29 Assessment & Plan Assessment & Plan (1) Diabetes mellitus with hyperglycemia: Status: Acute Code(s): E11.65 - Type 2 diabetes mellitus with hyperglycemia (2) Psychosis: Status: Acute Code(s): F29 - Unspecified psychosis not due to a substance or known physiological condition (3) Dementia: Status: Acute Code(s): F03.90 - Unspecified dementia, unspecified severity, without behavioral disturbance, psychotic disturbance, mood disturbance, and anxiety Plan This is an 86 year old female with history of DM, breast cancer, dementia with behavioral disturbance, HTN, HLD, CKD3, pulmonary nodule initially brought to the ED in December after her who was her primary pillowcase turner and her house was found to be uninhabitable. [facility] where she had been getting treatment for psychosis and paranoia, guardianship and Farooq's order obtained, and had been doing fairly well until she was diagnosed with covid 19 on 05/03. At that time she became more lethargic. hospital course complicated further by hyperglycemia. Diabetes with hyperglycemia Hba1c in January was 9.2 but has not been on any diabetic medication. Blood sugar up to 400s today changed to diabetic diet started on SSI, will follow POCs to obtain 24 hour insulin needs and then will add long acting insulin toxic metabolic encephalopathy alert and oriented x2 - seems to be at baseline but still with generalized weakness and decreased activity likely multifactorial from recent covid 19 infection, uncontrolled DM and dental infection Dental infection recommend augmentin x 10 days Covid 19 diagnosed 05/03 s/p remdesivir x 3 days cxr was negative at that time afebrile, no respiratory symptoms, no hypoxia at this time CKD3 creatinine stable HTN overall BP under adequate control continue HCTZ, norvasc Pulmonary nodules oncology following Mood continue management per psychiatric team Psychiatry 1. Continue with hospitalist recommendations.? 2. Continue with same treatment.? 3. Waiting for placement. 4. Currently she is encephalopathic due to COVID-19. 5. F/U hospitalist consult. Reason for contiued inpatient stay Substantial Risk for: inability to function and rapid decompensation Time Spent With Patient Time: Total time managing care of this patient today ____ minutes.
[2022-05-14 16:24] LABS: Glucose, Whole Blood 237 mg/dL (60-115)
[2022-05-14 20:15] VITALS: BP 140/62; PULSE 67; RESP 16; TEMP 37.2; O2SAT 95
[2022-05-14] MEDS: OLANZapine 5 MG TABLET PO (20:26)
[2022-05-14] MEDS: amLODIPine Besylate 10 MG TABLET PO (20:26)
[2022-05-15 08:00] LABS: Glucose, Whole Blood 256 mg/dL (60-115)
[2022-05-15] MEDS: Insulin Lispro 100 UNIT/ML 3 ML VIAL SUBCUT ×2 (08:13→16:30)
[2022-05-15 08:44] VITALS: BP 151/103; PULSE 89; RESP 18; O2SAT 95
[2022-05-15] MEDS: Amoxicillin/Potassium Clav 875 MG TABLET PO ×2 (08:46→20:20)
[2022-05-15] MEDS: hydroCHLOROthiazide 12.5 MG TABLET PO (08:47)
[2022-05-15 11:30] LABS: COVID-19 Test Positive (Negative); IDNOW Serial# 16C4AD1C
[2022-05-15 12:06] LABS: Glucose, Whole Blood 298 mg/dL (60-115)
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
[2022-05-15 13:57] VITALS: TEMP 37.5
[2022-05-15] MEDS: Acetaminophen 325 MG TABLET 650 MG PO (13:59)
[2022-05-15 16:32] VITALS: TEMP 37.3
[2022-05-15 18:00] VITALS: RESP 16
--- NOTE | 2022-05-15 19:14 | PC.NURSE ---
Covid tested positive today. Remains isolative to room due to COVID dx. VS allowed this am, but refused temp. Temp 99.2 temporal at 0935 when pt allowed temp. POC FBS 256 and accepted 6 units of Humalog Insulin. Initially refused FBS and coverage due to not receiving edmonds and condiments she had wanted on breakfast tray. Initially refused POC before lunch. Accepted after alternative staff member presented to take POC. BS at 1154 298. Refused Insulin coverage, stating sugar was elevated because staff stressed her. BS 305 at 1625, accepted Humalog Insulin 8 units SC for coverage. Temp 99.2 temporal at 1632, Tylenol 650 mg po accepted. Temp 98.7 temporal at 1848.
[2022-05-15 19:28] LABS: Glucose, Whole Blood 303 mg/dL (60-115)
[2022-05-15] MEDS: amLODIPine Besylate 10 MG TABLET PO (20:19)
[2022-05-15] MEDS: OLANZapine 5 MG TABLET PO (20:20)
[2022-05-16 06:00] VITALS: BP 153/76; PULSE 75; RESP 18; TEMP 37.2; O2SAT 94
[2022-05-16] MEDS: hydroCHLOROthiazide 12.5 MG TABLET PO (10:00)
[2022-05-16] MEDS: Amoxicillin/Potassium Clav 875 MG TABLET PO ×2 (10:03→20:48)
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
[2022-05-16] MEDS: metFORMIN HCl 500 MG TABLET PO (17:34)
[2022-05-16 18:00] VITALS: RESP 16
[2022-05-16] MEDS: OLANZapine 5 MG TABLET PO (20:48)
[2022-05-17 08:57] LABS: Glucose, Whole Blood 215 mg/dL (60-115)
[2022-05-17] MEDS: Insulin Lispro 100 UNIT/ML 3 ML VIAL SUBCUT (10:12)
[2022-05-17] MEDS: hydroCHLOROthiazide 12.5 MG TABLET PO (10:13)
[2022-05-17] MEDS: metFORMIN HCl 500 MG TABLET PO ×2 (10:13→16:47)
[2022-05-17] MEDS: Amoxicillin/Potassium Clav 875 MG TABLET PO ×2 (10:13→19:57)
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
[2022-05-17 18:00] VITALS: BP 167/81; PULSE 74; RESP 18; TEMP 37.3; O2SAT 94
[2022-05-17] MEDS: amLODIPine Besylate 10 MG TABLET PO (19:57)
[2022-05-17] MEDS: traZODone HCL 50 MG TABLET PO (19:57)
[2022-05-17] MEDS: OLANZapine 5 MG TABLET PO (19:57)
[2022-05-18 06:00] VITALS: BP 129/68; PULSE 88; RESP 18; TEMP 36.7; O2SAT 94
[2022-05-18 07:00] VITALS: BMI 23.8
[2022-05-18 08:08] LABS: Glucose, Whole Blood 251 mg/dL (60-115)
[2022-05-18 08:26] LABS: Creatinine Clr Calc Pharmacy 44.5; Estimated Glomerular Filt Rate 52
[2022-05-18] MEDS: hydroCHLOROthiazide 12.5 MG TABLET PO (08:54)
[2022-05-18] MEDS: Amoxicillin/Potassium Clav 875 MG TABLET PO ×2 (08:54→21:24)
[2022-05-18] MEDS: Insulin Lispro 100 UNIT/ML 3 ML VIAL SUBCUT (08:55)
[2022-05-18] MEDS: metFORMIN HCl 500 MG TABLET PO ×2 (08:55→16:58)
--- NOTE | 2022-05-18 17:43 | P.PNPSI_ITS ---
Subjective Subjective Date of Service: 05/18/22 Reason For Visit: Mood Subjective Notes: Conditional Voluntary Interim History: The nursing staff reported the patient had been in in her room most of the time, confused at times. In the mornings struggle to have the finger steps and coverage with insulin due to untreated diabetes. She is on antibiotics due to abscess on her tooth. She was going to see the dentist but unfortunately she came positive to COVID 19 and we had to cancel the appointment. The case management social worker reported the [facility] facilities assessing and they want an update pretty soon. On interview the patient is confused, still recovering from COVID-19. Mental Status Exam Mental Status Exam Patient Appearance: Appropriate Patient Orientation: Person and Situation Level of Consciousness: Awake and Appropriate Patient Behavior: Guarded and Passive Mood Description: Withdrawn and Constricted Affect Description: Blunted Patient Cognition Impaired: Yes Ability to Follow Directions: Good Speech Pattern: Clear Hallucinations: None Delusions: Paranoid Ideation Thought Process: Distracted and Evasive Thought Content: positive for [place] Judgement: Poor Diagnostics Vital Signs (24Hr): Vital Signs - 24 hr 05/17/22 18:00 05/18/22 06:00 Temperature 99.1 F 98.0 F Pulse Rate 74 88 Respiratory Rate 18 18 Blood Pressure 167/81 H 129/68 Pulse Oximetry 94 94 Oxygen Delivery Method Room Air Room Air BMI result Body Mass Index 23.8 Labs 05/12/22 09:30 05/18/22 07:49 Labs: Laboratory Results - last 48 hr 05/17/22 05/18/22 05/18/22 08:54 07:49 08:01 Creatinine 1.01 Estim Creat Clear Calc 44.5 Estimated GFR 52 POC Glucose 215 H 251 H Imaging Radiology Impressions: ITS Impressions Chest CT 01/10/22 15:11 IMPRESSION: Bilateral small pulmonary nodules, left greater than right. Biapical pleural and parenchymal scarring. 1.1 x 1.4 cm heterogeneous or semisolid right apical nodule, question related to pleural and parenchymal scarring. 1.5 cm partially calcified left thyroid nodule. Based on patient age in size, this does not meet criteria for follow-up. Moderate coronary artery calcification. Fleischner guidelines were followed. Chest CT 04/01/22 14:44 IMPRESSION: *Unchanged semisolid 1.5 cm x 1.0 cm nodule within the apex of the right pulmonary lobe. Per the Fleischner Society 2017 revised guidelines, as clinically indicated recommend annual screening CT to demonstrate stability to demonstrate ultimate 5 year stability. *Unchanged small number of scattered solid pulmonary nodules ranging in size up to 6 mm diameter stable compared with 01/10/2022. *Moderate-marked diffuse coronary artery calcific atherosclerosis. *Partially visualized posttreatment related changes of the right breast. Head CT 04/18/22 09:11 IMPRESSION: No acute intracranial pathology. Chest X-Ray 05/09/22 19:28 IMPRESSION: No acute intrathoracic disease. Medications Medications Current Medications Acetaminophen (Acetaminophen 325 Mg Tablet) 650 mg PO Q6H PRN PRN Reason: Pain, Moderate (Pain Scale 4-6 Last Admin: 05/15/22 13:59 Dose: 650 mg Amlodipine Besylate (Amlodipine Besylate 10 Mg Tablet) 10 mg PO BEDTIME [facility]; Protocol Last Admin: 05/17/22 19:57 Dose: 10 mg Amoxicillin/Clavulanate Potassium (Amoxicillin/Potassium Clav 875 Mg Tablet) 875 mg PO Q12H [facility] Stop: 05/22/22 19:59 Last Admin: 05/18/22 08:54 Dose: 875 mg Docusate Sodium (Docusate Sodium 100 Mg Capsule) 100 mg PO BID PRN PRN Reason: Constipation Last Admin: 05/03/22 10:39 Dose: 100 mg Guaifenesin (Guaifenesin 100 Mg/5 Ml Liquid) 5 ml PO Q4H PRN PRN Reason: Cough Hydrochlorothiazide (Hydrochlorothiazide 12.5 Mg Tablet) 12.5 mg PO DAILY [facility]; Protocol Last Admin: 05/18/22 08:54 Dose: 12.5 mg Ibuprofen (Ibuprofen 600 Mg Tablet) 600 mg PO Q8H PRN PRN Reason: pain not relieved by tylenol Last Admin: 05/08/22 17:25 Dose: 600 mg Insulin Human Lispro (Insulin Lispro 100 Unit/Ml 3 Ml Vial) 0 unit SUBCUT DAILY [facility]; Protocol Last Admin: 05/18/22 08:55 Dose: 6 unit Lidocaine/Diphenhydr/Alum/Mg/Simeth (Mag&Al/Sim/Diphenhyd/Lidocaine 10 Ml Oral.Susp) 10 ml PO Q4H PRN; Protocol PRN Reason: Sore Throat Metformin HCl (Metformin Hcl 500 Mg Tablet) 500 mg PO BIDWM [facility] Last Admin: 05/18/22 16:58 Dose: 500 mg Olanzapine (Olanzapine 5 Mg Tablet) 5 mg PO BEDTIME [facility] Last Admin: 05/17/22 19:57 Dose: 5 mg Olanzapine (Olanzapine 10 Mg Vial) 5 mg IM BEDTIME PRN PRN Reason: refusal of PO Last Admin: 04/04/22 23:12 Dose: 5 mg Oxybutynin Chloride (Oxybutynin Chloride Er 5 Mg Tab.Er.24) 10 mg PO DAILY [facility] Last Admin: 05/18/22 08:54 Dose: 10 mg Oxycodone HCl (Oxycodone Hcl Immed Release 5 Mg Tablet) 5 mg PO Q6H PRN PRN Reason: Pain, Severe (Pain Scale 7-10) Trazodone HCl (Trazodone Hcl 50 Mg Tablet) 50 mg PO BEDTIME PRN PRN Reason: insomnia Last Admin: 05/17/22 19:57 Dose: 50 mg Allergies Allergies Allergy/AdvReac Type Severity Reaction Status Date / Time codeine Allergy Unknown Unknown Verified 12/15/21 18:29 sulfadiazine Allergy Unknown Unknown Verified 12/15/21 18:29 Assessment & Plan Assessment & Plan (1) Diabetes mellitus with hyperglycemia: Status: Acute Code(s): E11.65 - Type 2 diabetes mellitus with hyperglycemia (2) Psychosis: Status: Acute Code(s): F29 - Unspecified psychosis not due to a substance or known physiological condition (3) Dementia: Status: Acute Code(s): F03.90 - Unspecified dementia, unspecified severity, without behavioral disturbance, psychotic disturbance, mood disturbance, and anxiety Plan This is an 86 year old female with history of DM, breast cancer, dementia with behavioral disturbance, HTN, HLD, CKD3, pulmonary nodule initially brought to the ED in December after her who was her primary it specialist and her house was found to be uninhabitable. [facility] where she had been getting treatment for psychosis and paranoia, guardianship and Farooq's order obtained, and had been doing fairly well until she was diagnosed with covid 19 on 05/03. At that time she became more lethargic. hospital course complicated further by hyperglycemia. Diabetes with hyperglycemia Hba1c in January was 9.2 but has not been on any diabetic medication. Blood sugar up to 400s today changed to diabetic diet started on SSI, will follow POCs to obtain 24 hour insulin needs and then will add long acting insulin toxic metabolic encephalopathy alert and oriented x2 - seems to be at baseline but still with generalized weakness and decreased activity likely multifactorial from recent covid 19 infection, uncontrolled DM and dental infection Dental infection recommend augmentin x 10 days Covid 19 diagnosed 05/03 s/p remdesivir x 3 days cxr was negative at that time afebrile, no respiratory symptoms, no hypoxia at this time CKD3 creatinine stable HTN overall BP under adequate control continue HCTZ, norvasc Pulmonary nodules oncology following Mood continue management per psychiatric team Psychiatry 1. Continue with hospitalist recommendations.? 2. Continue with same treatment.? 3. Waiting for placement. 4. Currently she is encephalopathic due to COVID-19. 5. F/U hospitalist consult. 6. Start metformin 500 mg p.o. b.i.d.. 7. Change point of care to once a day. Number head on antibiotics due to dental abscess. As soon as she is free of COVID-19 restrictions, she should be seen by the dentist since she has infected tooth Reason for contiued inpatient stay Substantial Risk for: inability to function, rapid decompensation and med/psych decompensation Time Spent With Patient Time: Total time managing care of this patient today __20__ minutes.
[2022-05-18 18:00] VITALS: BP 140/74; PULSE 78; RESP 17; TEMP 36.8; O2SAT 95
[2022-05-18] MEDS: traZODone HCL 50 MG TABLET PO (21:24)
[2022-05-18] MEDS: amLODIPine Besylate 10 MG TABLET PO (21:24)
[2022-05-18] MEDS: OLANZapine 5 MG TABLET PO (21:25)
[2022-05-19] MEDS: Amoxicillin/Potassium Clav 875 MG TABLET PO (09:10)
[2022-05-19] MEDS: metFORMIN HCl 500 MG TABLET PO ×2 (09:11→16:40)
[2022-05-19] MEDS: hydroCHLOROthiazide 12.5 MG TABLET PO (09:11)
--- NOTE | 2022-05-19 09:24 | P.PNPSI_ITS ---
Subjective Subjective Date of Service: 05/19/22 Reason For Visit: Mood Subjective Notes: Section 8 Interim History: Pt ambulating more, less weakness. No SI/HI. Somewhat irritable this morning but accepting care. She had breakfast. No overt behavioral concerns. She is taking medications as prescribed. VS stable. Afebrile. No SOB. Medication Compliance: Yes Review of Systems Review of Systems Yes all other systems are reviewed and are negative and Unobtainable due to mental status Constitutional: Reports no additional constitutional complaints, Denies chills and Denies fever(s) Eyes: Reports no additional eye complaints Reports system reviewed and no additional complaints, except as documented Cardiovascular: Reports no additional cardiovascular complaints, Denies chest pain and Denies dyspnea Respiratory: Reports no additional respiratory complaints, Denies cough and De nies dyspnea Gastrointestinal: Reports no additional gastrointestinal complaints Musculoskeletal: Reports no additional musculoskeletal complaints Skin/Breast: Reports system reviewed and no additional complaints, except as docu Reports system reviewed and no additional complaints, except as documented and Reports confusion (at times speaking randomly and changing subject) Psychiatric: Reports no additional psychiatric complaints, Reports as per HPI and Reports confusion (at times speaking randomly and changing subject) Endocrine: Reports no additional endocrine complaints Hematologic/Lymphatic: Reports no additional hematologic/lymphatic complaints Allergic/Immunologic: Reports no additional allergic/immunologic complaints Mental Status Exam Mental Status Exam Narrative: Alert, oriented to place, no year, month, nor situation. No SI/HI. No VH/AH. Ambulating with walker, fair hygiene, in NAD. No overt delusions or AH/VH. Speech is clear, normal rate, spontaneous. TP: tangential. Diagnostics Vital Signs (24Hr): Vital Signs - 24 hr 05/18/22 18:00 Temperature 98.2 F Pulse Rate 78 Respiratory Rate 17 Blood Pressure 140/74 H Pulse Oximetry 95 Oxygen Delivery Method Room Air BMI result Body Mass Index 23.8 Labs 05/12/22 09:30 05/18/22 07:49 Labs: Laboratory Results - last 48 hr 05/18/22 05/18/22 07:49 08:01 Creatinine 1.01 Estim Creat Clear Calc 44.5 Estimated GFR 52 POC Glucose 251 H Imaging Radiology Impressions: ITS Impressions Chest CT 01/10/22 15:11 IMPRESSION: Bilateral small pulmonary nodules, left greater than right. Biapical pleural and parenchymal scarring. 1.1 x 1.4 cm heterogeneous or semisolid right apical nodule, question related to pleural and parenchymal scarring. 1.5 cm partially calcified left thyroid nodule. Based on patient age in size, this does not meet criteria for follow-up. Moderate coronary artery calcification. Fleischner guidelines were followed. Chest CT 04/01/22 14:44 IMPRESSION: *Unchanged semisolid 1.5 cm x 1.0 cm nodule within the apex of the right pulmonary lobe. Per the Fleischner Society 2017 revised guidelines, as clinically indicated recommend annual screening CT to demonstrate stability to demonstrate ultimate 5 year stability. *Unchanged small number of scattered solid pulmonary nodules ranging in size up to 6 mm diameter stable compared with 01/10/2022. *Moderate-marked diffuse coronary artery calcific atherosclerosis. *Partially visualized posttreatment related changes of the right breast. Head CT 04/18/22 09:11 IMPRESSION: No acute intracranial pathology. Chest X-Ray 05/09/22 19:28 IMPRESSION: No acute intrathoracic disease. Medications Medications Current Medications Acetaminophen (Acetaminophen 325 Mg Tablet) 650 mg PO Q6H PRN PRN Reason: Pain, Moderate (Pain Scale 4-6 Last Admin: 05/15/22 13:59 Dose: 650 mg Amlodipine Besylate (Amlodipine Besylate 10 Mg Tablet) 10 mg PO BEDTIME [facility]; Protocol Last Admin: 05/18/22 21:24 Dose: 10 mg Amoxicillin/Clavulanate Potassium (Amoxicillin/Potassium Clav 875 Mg Tablet) 875 mg PO Q12H [facility] Stop: 05/22/22 19:59 Last Admin: 05/19/22 09:10 Dose: 875 mg Docusate Sodium (Docusate Sodium 100 Mg Capsule) 100 mg PO BID PRN PRN Reason: Constipation Last Admin: 05/03/22 10:39 Dose: 100 mg Guaifenesin (Guaifenesin 100 Mg/5 Ml Liquid) 5 ml PO Q4H PRN PRN Reason: Cough Hydrochlorothiazide (Hydrochlorothiazide 12.5 Mg Tablet) 12.5 mg PO DAILY [facility]; Protocol Last Admin: 05/19/22 09:11 Dose: 12.5 mg Ibuprofen (Ibuprofen 600 Mg Tablet) 600 mg PO Q8H PRN PRN Reason: pain not relieved by tylenol Last Admin: 05/08/22 17:25 Dose: 600 mg Insulin Human Lispro (Insulin Lispro 100 Unit/Ml 3 Ml Vial) 0 unit SUBCUT DAILY [facility]; Protocol Last Admin: 05/19/22 09:12 Dose: Not Given Lidocaine/Diphenhydr/Alum/Mg/Simeth (Mag&Al/Sim/Diphenhyd/Lidocaine 10 Ml Oral.Susp) 10 ml PO Q4H PRN; Protocol PRN Reason: Sore Throat Metformin HCl (Metformin Hcl 500 Mg Tablet) 500 mg PO BIDWM [facility] Last Admin: 05/19/22 09:11 Dose: 500 mg Olanzapine (Olanzapine 5 Mg Tablet) 5 mg PO BEDTIME [facility] Last Admin: 05/18/22 21:25 Dose: 5 mg Olanzapine (Olanzapine 10 Mg Vial) 5 mg IM BEDTIME PRN PRN Reason: refusal of PO Last Admin: 04/04/22 23:12 Dose: 5 mg Oxybutynin Chloride (Oxybutynin Chloride Er 5 Mg Tab.Er.24) 10 mg PO DAILY [facility] Last Admin: 05/19/22 09:10 Dose: 10 mg Oxycodone HCl (Oxycodone Hcl Immed Release 5 Mg Tablet) 5 mg PO Q6H PRN PRN Reason: Pain, Severe (Pain Scale 7-10) Trazodone HCl (Trazodone Hcl 50 Mg Tablet) 50 mg PO BEDTIME PRN PRN Reason: insomnia Last Admin: 05/18/22 21:24 Dose: 50 mg Allergies Allergies Allergy/AdvReac Type Severity Reaction Status Date / Time codeine Allergy Unknown Unknown Verified 12/15/21 18:29 sulfadiazine Allergy Unknown Unknown Verified 12/15/21 18:29 Assessment & Plan Assessment & Plan (1) Diabetes mellitus with hyperglycemia: Status: Acute Code(s): E11.65 - Type 2 diabetes mellitus with hyperglycemia (2) Psychosis: Status: Acute Code(s): F29 - Unspecified psychosis not due to a substance or known physiological condition (3) Dementia: Status: Acute Code(s): F03.90 - Unspecified dementia, unspecified severity, without behavioral disturbance, psychotic disturbance, mood disturbance, and anxiety Plan This is an 86 year old female with history of DM, breast cancer, dementia with behavioral disturbance, HTN, HLD, CKD3, pulmonary nodule initially brought to the ED in December after her who was her primary commissioned sales associate and her house was found to be uninhabitable. [facility] where she had been getting treatment for psychosis and paranoia, guardianship and Farooq's order obtained, and had been doing fairly well until she was diagnosed with covid 19 on 05/03. At that time she became more lethargic. hospital course complicated further by hyperglycemia. Diabetes with hyperglycemia Hba1c in January was 9.2 but has not been on any diabetic medication. Blood sugar up to 400s today changed to diabetic diet started on SSI, will follow POCs to obtain 24 hour insulin needs and then will add long acting insulin toxic metabolic encephalopathy alert and oriented x2 - seems to be at baseline but still with generalized weakness and decreased activity likely multifactorial from recent covid 19 infection, uncontrolled DM and dental infection Dental infection recommend augmentin x 10 days Covid 19 diagnosed 05/03 s/p remdesivir x 3 days cxr was negative at that time afebrile, no respiratory symptoms, no hypoxia at this time CKD3 creatinine stable HTN overall BP under adequate control continue HCTZ, norvasc Pulmonary nodules oncology following Mood continue management per psychiatric team 05/19 continue tx. Reason for contiued inpatient stay Substantial Risk for: inability to function Time Spent With Patient Time: Total time managing care of this patient today ____ minutes.
[2022-05-20 08:41] LABS: Glucose, Whole Blood 205 mg/dL (60-115)
[2022-05-20 09:00] VITALS: BP 137/70; PULSE 77; RESP 16; TEMP 35.8; O2SAT 98
[2022-05-20] MEDS: metFORMIN HCl 500 MG TABLET PO ×2 (09:27→17:52)
[2022-05-20] MEDS: hydroCHLOROthiazide 12.5 MG TABLET PO (09:27)
[2022-05-20] MEDS: Amoxicillin/Potassium Clav 875 MG TABLET PO ×2 (09:27→22:16)
--- NOTE | 2022-05-20 11:11 | P.PNPSI_ITS ---
Subjective Subjective Date of Service: 05/20/22 Reason For Visit: Mood Subjective Notes: Section 8 Interim History: Patient irritable dysphoric and withdrawn Medication Compliance: Yes Mental Status Exam Mental Status Exam Narrative: Patient irritable and withdrawn. Anxious dysphoric and reactive. No active SI or HI limited judgment insight Diagnostics Vital Signs (24Hr): Vital Signs - 24 hr 05/21/22 18:00 Temperature 97 F Pulse Rate 69 Respiratory Rate 18 Blood Pressure 131/73 Pulse Oximetry 94 Oxygen Delivery Method Room Air BMI result Body Mass Index 23.8 Labs 05/12/22 09:30 05/18/22 07:49 Labs: Laboratory Results - last 48 hr 05/20/22 05/21/22 08:23 08:29 POC Glucose 205 H 164 H Imaging Radiology Impressions: ITS Impressions Chest CT 01/10/22 15:11 IMPRESSION: Bilateral small pulmonary nodules, left greater than right. Biapical pleural and parenchymal scarring. 1.1 x 1.4 cm heterogeneous or semisolid right apical nodule, question related to pleural and parenchymal scarring. 1.5 cm partially calcified left thyroid nodule. Based on patient age in size, this does not meet criteria for follow-up. Moderate coronary artery calcification. Fleischner guidelines were followed. Chest CT 04/01/22 14:44 IMPRESSION: *Unchanged semisolid 1.5 cm x 1.0 cm nodule within the apex of the right pulmonary lobe. Per the Fleischner Society 2017 revised guidelines, as clinically indicated recommend annual screening CT to demonstrate stability to demonstrate ultimate 5 year stability. *Unchanged small number of scattered solid pulmonary nodules ranging in size up to 6 mm diameter stable compared with 01/10/2022. *Moderate-marked diffuse coronary artery calcific atherosclerosis. *Partially visualized posttreatment related changes of the right breast. Head CT 04/18/22 09:11 IMPRESSION: No acute intracranial pathology. Chest X-Ray 05/09/22 19:28 IMPRESSION: No acute intrathoracic disease. Medications Medications Current Medications Acetaminophen (Acetaminophen 325 Mg Tablet) 650 mg PO Q6H PRN PRN Reason: Pain, Moderate (Pain Scale 4-6 Last Admin: 05/15/22 13:59 Dose: 650 mg Amlodipine Besylate (Amlodipine Besylate 10 Mg Tablet) 10 mg PO BEDTIME [facility]; Protocol Last Admin: 05/21/22 19:51 Dose: 10 mg Amoxicillin/Clavulanate Potassium (Amoxicillin/Potassium Clav 875 Mg Tablet) 875 mg PO Q12H [facility] Stop: 05/22/22 19:59 Last Admin: 05/21/22 19:51 Dose: 875 mg Docusate Sodium (Docusate Sodium 100 Mg Capsule) 100 mg PO BID PRN PRN Reason: Constipation Last Admin: 05/03/22 10:39 Dose: 100 mg Guaifenesin (Guaifenesin 100 Mg/5 Ml Liquid) 5 ml PO Q4H PRN PRN Reason: Cough Hydrochlorothiazide (Hydrochlorothiazide 12.5 Mg Tablet) 12.5 mg PO DAILY [facility]; Protocol Last Admin: 05/21/22 09:44 Dose: Not Given Ibuprofen (Ibuprofen 600 Mg Tablet) 600 mg PO Q8H PRN PRN Reason: pain not relieved by tylenol Last Admin: 05/08/22 17:25 Dose: 600 mg Insulin Human Lispro (Insulin Lispro 100 Unit/Ml 3 Ml Vial) 0 unit SUBCUT DAILY [facility]; Protocol Last Admin: 05/21/22 09:44 Dose: Not Given Lidocaine/Diphenhydr/Alum/Mg/Simeth (Mag&Al/Sim/Diphenhyd/Lidocaine 10 Ml Oral.Susp) 10 ml PO Q4H PRN; Protocol PRN Reason: Sore Throat Metformin HCl (Metformin Hcl 500 Mg Tablet) 500 mg PO BIDWM [facility] Last Admin: 05/21/22 16:36 Dose: 500 mg Olanzapine (Olanzapine 5 Mg Tablet) 5 mg PO BEDTIME [facility] Last Admin: 05/21/22 19:51 Dose: 5 mg Olanzapine (Olanzapine 10 Mg Vial) 5 mg IM BEDTIME PRN PRN Reason: refusal of PO Last Admin: 04/04/22 23:12 Dose: 5 mg Oxybutynin Chloride (Oxybutynin Chloride Er 5 Mg Tab.Er.24) 10 mg PO DAILY [facility] Last Admin: 05/21/22 09:44 Dose: Not Given Trazodone HCl (Trazodone Hcl 50 Mg Tablet) 50 mg PO BEDTIME PRN PRN Reason: insomnia Last Admin: 05/21/22 19:51 Dose: 50 mg Allergies Allergies Allergy/AdvReac Type Severity Reaction Status Date / Time codeine Allergy Unknown Unknown Verified 12/15/21 18:29 sulfadiazine Allergy Unknown Unknown Verified 12/15/21 18:29 Assessment & Plan Assessment & Plan (1) Diabetes mellitus with hyperglycemia: Status: Acute Code(s): E11.65 - Type 2 diabetes mellitus with hyperglycemia (2) Psychosis: Status: Acute Code(s): F29 - Unspecified psychosis not due to a substance or known physiological condition (3) Dementia: Status: Acute Code(s): F03.90 - Unspecified dementia, unspecified severity, without behavioral disturbance, psychotic disturbance, mood disturbance, and anxiety Plan This is an 86 year old female with history of DM, breast cancer, dementia with behavioral disturbance, HTN, HLD, CKD3, pulmonary nodule initially brought to the ED in December after her who was her primary tanker serviceman and her house was found to be uninhabitable. [facility] where she had been getting treatment for psychosis and paranoia, guardianship and Farooq's order obtained, and had been doing fairly well until she was diagnosed with covid 19 on 05/03. At that time she became more lethargic. hospital course complicated further by hyperglycemia. Diabetes with hyperglycemia Hba1c in January was 9.2 but has not been on any diabetic medication. Blood sugar up to 400s today changed to diabetic diet started on SSI, will follow POCs to obtain 24 hour insulin needs and then will add long acting insulin toxic metabolic encephalopathy alert and oriented x2 - seems to be at baseline but still with generalized weakness and decreased activity likely multifactorial from recent covid 19 infection, uncontrolled DM and dental infection Dental infection recommend augmentin x 10 days Covid 19 diagnosed 05/03 s/p remdesivir x 3 days cxr was negative at that time afebrile, no respiratory symptoms, no hypoxia at this time CKD3 creatinine stable HTN overall BP under adequate control continue HCTZ, norvasc Pulmonary nodules oncology following Mood continue management per psychiatric team 05/19 continue tx. 05/20/22 cont plan of care some improvement s/p covid Reason for contiued inpatient stay Substantial Risk for: inability to function and rapid decompensation Time Spent With Patient Time: Total time managing care of this patient today ____ minutes.
[2022-05-20 18:00] VITALS: BP 169/79; PULSE 74; RESP 18; TEMP 36.4; O2SAT 97
[2022-05-20] MEDS: amLODIPine Besylate 10 MG TABLET PO (22:17)
[2022-05-20] MEDS: OLANZapine 5 MG TABLET PO (22:18)
[2022-05-21 08:34] LABS: Glucose, Whole Blood 164 mg/dL (60-115)
--- NOTE | 2022-05-21 16:16 | HO.PSYCHPN ---
Subjective Subjective Date of Service: 05/21/22 Reason For Visit: Mood Subjective Notes: Section 8 Interim History: Patient irritable dysphoric and withdrawn did not wish to engage Medication Compliance: Yes Mental Status Exam Mental Status Exam Narrative: Patient irritable and withdrawn. Anxious dysphoric and reactive. No active SI or HI limited judgment insight Diagnostics Vital Signs (24Hr): Vital Signs - 24 hr 05/21/22 18:00 Temperature 97 F Pulse Rate 69 Respiratory Rate 18 Blood Pressure 131/73 Pulse Oximetry 94 Oxygen Delivery Method Room Air BMI result Body Mass Index 23.8 Labs 05/12/22 09:30 05/18/22 07:49 Labs: Laboratory Results - last 48 hr 05/20/22 05/21/22 08:23 08:29 POC Glucose 205 H 164 H Imaging Radiology Impressions: ITS Impressions Chest CT 01/10/22 15:11 IMPRESSION: Bilateral small pulmonary nodules, left greater than right. Biapical pleural and parenchymal scarring. 1.1 x 1.4 cm heterogeneous or semisolid right apical nodule, question related to pleural and parenchymal scarring. 1.5 cm partially calcified left thyroid nodule. Based on patient age in size, this does not meet criteria for follow-up. Moderate coronary artery calcification. Fleischner guidelines were followed. Chest CT 04/01/22 14:44 IMPRESSION: *Unchanged semisolid 1.5 cm x 1.0 cm nodule within the apex of the right pulmonary lobe. Per the Fleischner Society 2017 revised guidelines, as clinically indicated recommend annual screening CT to demonstrate stability to demonstrate ultimate 5 year stability. *Unchanged small number of scattered solid pulmonary nodules ranging in size up to 6 mm diameter stable compared with 01/10/2022. *Moderate-marked diffuse coronary artery calcific atherosclerosis. *Partially visualized posttreatment related changes of the right breast. Head CT 04/18/22 09:11 IMPRESSION: No acute intracranial pathology. Chest X-Ray 05/09/22 19:28 IMPRESSION: No acute intrathoracic disease. Medications Medications Current Medications Acetaminophen (Acetaminophen 325 Mg Tablet) 650 mg PO Q6H PRN PRN Reason: Pain, Moderate (Pain Scale 4-6 Last Admin: 05/15/22 13:59 Dose: 650 mg Amlodipine Besylate (Amlodipine Besylate 10 Mg Tablet) 10 mg PO BEDTIME [facility]; Protocol Last Admin: 05/21/22 19:51 Dose: 10 mg Amoxicillin/Clavulanate Potassium (Amoxicillin/Potassium Clav 875 Mg Tablet) 875 mg PO Q12H [facility] Stop: 05/22/22 19:59 Last Admin: 05/21/22 19:51 Dose: 875 mg Docusate Sodium (Docusate Sodium 100 Mg Capsule) 100 mg PO BID PRN PRN Reason: Constipation Last Admin: 05/03/22 10:39 Dose: 100 mg Guaifenesin (Guaifenesin 100 Mg/5 Ml Liquid) 5 ml PO Q4H PRN PRN Reason: Cough Hydrochlorothiazide (Hydrochlorothiazide 12.5 Mg Tablet) 12.5 mg PO DAILY [facility]; Protocol Last Admin: 05/21/22 09:44 Dose: Not Given Ibuprofen (Ibuprofen 600 Mg Tablet) 600 mg PO Q8H PRN PRN Reason: pain not relieved by tylenol Last Admin: 05/08/22 17:25 Dose: 600 mg Insulin Human Lispro (Insulin Lispro 100 Unit/Ml 3 Ml Vial) 0 unit SUBCUT DAILY [facility]; Protocol Last Admin: 05/21/22 09:44 Dose: Not Given Lidocaine/Diphenhydr/Alum/Mg/Simeth (Mag&Al/Sim/Diphenhyd/Lidocaine 10 Ml Oral.Susp) 10 ml PO Q4H PRN; Protocol PRN Reason: Sore Throat Metformin HCl (Metformin Hcl 500 Mg Tablet) 500 mg PO BIDWM [facility] Last Admin: 05/21/22 16:36 Dose: 500 mg Olanzapine (Olanzapine 5 Mg Tablet) 5 mg PO BEDTIME [facility] Last Admin: 05/21/22 19:51 Dose: 5 mg Olanzapine (Olanzapine 10 Mg Vial) 5 mg IM BEDTIME PRN PRN Reason: refusal of PO Last Admin: 04/04/22 23:12 Dose: 5 mg Oxybutynin Chloride (Oxybutynin Chloride Er 5 Mg Tab.Er.24) 10 mg PO DAILY [facility] Last Admin: 05/21/22 09:44 Dose: Not Given Trazodone HCl (Trazodone Hcl 50 Mg Tablet) 50 mg PO BEDTIME PRN PRN Reason: insomnia Last Admin: 05/21/22 19:51 Dose: 50 mg Allergies Allergies Allergy/AdvReac Type Severity Reaction Status Date / Time codeine Allergy Unknown Unknown Verified 12/15/21 18:29 sulfadiazine Allergy Unknown Unknown Verified 12/15/21 18:29 Assessment & Plan Assessment & Plan (1) Diabetes mellitus with hyperglycemia: Status: Acute Code(s): E11.65 - Type 2 diabetes mellitus with hyperglycemia (2) Psychosis: Status: Acute Code(s): F29 - Unspecified psychosis not due to a substance or known physiological condition (3) Dementia: Status: Acute Code(s): F03.90 - Unspecified dementia, unspecified severity, without behavioral disturbance, psychotic disturbance, mood disturbance, and anxiety Plan This is an 86 year old female with history of DM, breast cancer, dementia with behavioral disturbance, HTN, HLD, CKD3, pulmonary nodule initially brought to the ED in December after her who was her primary shot core drill operator and her house was found to be uninhabitable. [facility] where she had been getting treatment for psychosis and paranoia, guardianship and Farooq's order obtained, and had been doing fairly well until she was diagnosed with covid 19 on 05/03. At that time she became more lethargic. hospital course complicated further by hyperglycemia. Diabetes with hyperglycemia Hba1c in January was 9.2 but has not been on any diabetic medication. Blood sugar up to 400s today changed to diabetic diet started on SSI, will follow POCs to obtain 24 hour insulin needs and then will add long acting insulin toxic metabolic encephalopathy alert and oriented x2 - seems to be at baseline but still with generalized weakness and decreased activity likely multifactorial from recent covid 19 infection, uncontrolled DM and dental infection Dental infection recommend augmentin x 10 days Covid 19 diagnosed 05/03 s/p remdesivir x 3 days cxr was negative at that time afebrile, no respiratory symptoms, no hypoxia at this time CKD3 creatinine stable HTN overall BP under adequate control continue HCTZ, norvasc Pulmonary nodules oncology following Mood continue management per psychiatric team 05/19 continue tx. 05/20/22 cont plan of care some improvement s/p covid 05/21/2022 Continue plan of care encourage ambulation Reason for contiued inpatient stay Substantial Risk for: rapid decompensation and med/psych decompensation Time Spent With Patient Time: Total time managing care of this patient today ____ minutes.
[2022-05-21] MEDS: metFORMIN HCl 500 MG TABLET PO (16:36)
[2022-05-21 18:00] VITALS: BP 131/73; PULSE 69; RESP 18; TEMP 36.1; O2SAT 94
[2022-05-21] MEDS: traZODone HCL 50 MG TABLET PO (19:51)
[2022-05-21] MEDS: OLANZapine 5 MG TABLET PO (19:51)
[2022-05-21] MEDS: amLODIPine Besylate 10 MG TABLET PO (19:51)
[2022-05-21] MEDS: Amoxicillin/Potassium Clav 875 MG TABLET PO (19:51)
[2022-05-22 11:25] VITALS: BP 104/99; PULSE 85; RESP 18; TEMP 36.4; O2SAT 93
[2022-05-22] MEDS: Amoxicillin/Potassium Clav 875 MG TABLET PO (11:33)
[2022-05-22] MEDS: metFORMIN HCl 500 MG TABLET PO ×2 (11:34→16:49)
[2022-05-22] MEDS: hydroCHLOROthiazide 12.5 MG TABLET PO (11:34)
[2022-05-22] MEDS: Acetaminophen 325 MG TABLET 650 MG PO (17:55)
[2022-05-22] MEDS: OLANZapine 10 MG VIAL 5 MG IM (20:35)
--- NOTE | 2022-05-22 23:32 | P.PNPSI_ITS ---
Subjective Subjective Date of Service: 05/22/22 Reason For Visit: Mood Subjective Notes: Section 8 Interim History: Patient irritable dysphoric and withdrawn depressed not want to engage Medication Compliance: Yes Attending Groups: No Review of Systems s/p sherice has dental concerns Medical Review of Systems: unchanged Mental Status Exam Mental Status Exam Narrative: Appearance: wearing casual clothing lying in bed Behavior: irritable Psychomotor: no agitation or retardation Speech: clear, normal rate/rhythm/volume, spontaneous TP: linear TC: no overt psychosis, asking for dentist for pain Mood: okay Affect: congruent, non labile SI: none HI: none AH/VH: none Delusions: none Insight/judgment: impaired x 2. Diagnostics Vital Signs (24Hr): Vital Signs - 24 hr 05/22/22 11:25 Temperature 97.6 F Pulse Rate 85 Respiratory Rate 18 Blood Pressure 104/99 H Pulse Oximetry 93 Oxygen Delivery Method Room Air BMI result Body Mass Index 23.8 Labs 05/12/22 09:30 05/18/22 07:49 Labs: Laboratory Results - last 48 hr 05/21/22 08:29 POC Glucose 164 H Imaging Radiology Impressions: ITS Impressions Chest CT 01/10/22 15:11 IMPRESSION: Bilateral small pulmonary nodules, left greater than right. Biapical pleural and parenchymal scarring. 1.1 x 1.4 cm heterogeneous or semisolid right apical nodule, question related to pleural and parenchymal scarring. 1.5 cm partially calcified left thyroid nodule. Based on patient age in size, this does not meet criteria for follow-up. Moderate coronary artery calcification. Fleischner guidelines were followed. Chest CT 04/01/22 14:44 IMPRESSION: *Unchanged semisolid 1.5 cm x 1.0 cm nodule within the apex of the right pulmonary lobe. Per the Fleischner Society 2017 revised guidelines, as clinically indicated recommend annual screening CT to demonstrate stability to demonstrate ultimate 5 year stability. *Unchanged small number of scattered solid pulmonary nodules ranging in size up to 6 mm diameter stable compared with 01/10/2022. *Moderate-marked diffuse coronary artery calcific atherosclerosis. *Partially visualized posttreatment related changes of the right breast. Head CT 04/18/22 09:11 IMPRESSION: No acute intracranial pathology. Chest X-Ray 05/09/22 19:28 IMPRESSION: No acute intrathoracic disease. Medications Medications Current Medications Acetaminophen (Acetaminophen 325 Mg Tablet) 650 mg PO Q6H PRN PRN Reason: Pain, Moderate (Pain Scale 4-6 Last Admin: 05/22/22 17:55 Dose: 650 mg Amlodipine Besylate (Amlodipine Besylate 10 Mg Tablet) 10 mg PO BEDTIME [facility]; Protocol Last Admin: 05/22/22 20:36 Dose: Not Given Docusate Sodium (Docusate Sodium 100 Mg Capsule) 100 mg PO BID PRN PRN Reason: Constipation Last Admin: 05/03/22 10:39 Dose: 100 mg Guaifenesin (Guaifenesin 100 Mg/5 Ml Liquid) 5 ml PO Q4H PRN PRN Reason: Cough Hydrochlorothiazide (Hydrochlorothiazide 12.5 Mg Tablet) 12.5 mg PO DAILY [facility]; Protocol Last Admin: 05/22/22 11:34 Dose: 12.5 mg Ibuprofen (Ibuprofen 600 Mg Tablet) 600 mg PO Q8H PRN PRN Reason: pain not relieved by tylenol Last Admin: 05/08/22 17:25 Dose: 600 mg Insulin Human Lispro (Insulin Lispro 100 Unit/Ml 3 Ml Vial) 0 unit SUBCUT DAILY [facility]; Protocol Last Admin: 05/22/22 11:34 Dose: Not Given Lidocaine/Diphenhydr/Alum/Mg/Simeth (Mag&Al/Sim/Diphenhyd/Lidocaine 10 Ml Oral.Susp) 10 ml PO Q4H PRN; Protocol PRN Reason: Sore Throat Metformin HCl (Metformin Hcl 500 Mg Tablet) 500 mg PO BIDWM [facility] Last Admin: 05/22/22 16:49 Dose: 500 mg Olanzapine (Olanzapine 5 Mg Tablet) 5 mg PO BEDTIME [facility] Last Admin: 05/22/22 20:36 Dose: Not Given Olanzapine (Olanzapine 10 Mg Vial) 5 mg IM BEDTIME PRN PRN Reason: refusal of PO Last Admin: 05/22/22 20:35 Dose: 5 mg Oxybutynin Chloride (Oxybutynin Chloride Er 5 Mg Tab.Er.24) 10 mg PO DAILY [facility] Last Admin: 05/22/22 11:33 Dose: 10 mg Trazodone HCl (Trazodone Hcl 50 Mg Tablet) 50 mg PO BEDTIME PRN PRN Reason: insomnia Last Admin: 05/21/22 19:51 Dose: 50 mg Allergies Allergies Allergy/AdvReac Type Severity Reaction Status Date / Time codeine Allergy Unknown Unknown Verified 12/15/21 18:29 sulfadiazine Allergy Unknown Unknown Verified 12/15/21 18:29 Assessment & Plan Assessment & Plan (1) Diabetes mellitus with hyperglycemia: Status: Acute Code(s): E11.65 - Type 2 diabetes mellitus with hyperglycemia (2) Psychosis: Status: Acute Code(s): F29 - Unspecified psychosis not due to a substance or known physiological condition (3) Dementia: Status: Acute Code(s): F03.90 - Unspecified dementia, unspecified severity, without behavioral disturbance, psychotic disturbance, mood disturbance, and anxiety Plan This is an 86 year old female with history of DM, breast cancer, dementia with behavioral disturbance, HTN, HLD, CKD3, pulmonary nodule initially brought to the ED in December after her 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 [facility] where she had been getting treatment for psychosis and paranoia, guardianship and Farooq's order obtained, and had been doing fairly well until she was diagnosed with covid 19 on 05/03. At that time she became more lethargic. hospital course complicated further by hyperglycemia. Diabetes with hyperglycemia Hba1c in January was 9.2 but has not been on any diabetic medication. Blood sugar up to 400s today changed to diabetic diet started on SSI, will follow POCs to obtain 24 hour insulin needs and then will a dd long acting insulin toxic metabolic encephalopathy alert and oriented x2 - seems to be at baseline but still with generalized weakness and decreased activity likely multifactorial from recent covid 19 infection, uncontrolled DM and dental infection Dental infection recommend augmentin x 10 days Covid 19 diagnosed 05/03 s/p remdesivir x 3 days cxr was negative at that time afebrile, no respiratory symptoms, no hypoxia at this time CKD3 creatinine stable HTN overall BP under adequate control continue HCTZ, norvasc Pulmonary nodules oncology following Mood continue management per psychiatric team 05/19 continue tx. 05/20/22 cont plan of care some improvement s/p covid 05/21/2022 Continue plan of care encourage ambulation 05/22/22 encourage ambulation cont medication see if we can get to dentist Informed Consent: does not understand Reason for contiued inpatient stay Substantial Risk for: inability to function and rapid decompensation Time Spent With Patient Time: Total time managing care of this patient today ____ minutes.
[2022-05-23] MEDS: Acetaminophen 325 MG TABLET 650 MG PO (03:34)
[2022-05-23 06:00] VITALS: BP 148/75; PULSE 69; RESP 18; TEMP 36.6; O2SAT 97
[2022-05-23 07:48] LABS: Glucose, Whole Blood 137 mg/dL (60-115)
[2022-05-23] MEDS: hydroCHLOROthiazide 12.5 MG TABLET PO (08:29)
[2022-05-23] MEDS: metFORMIN HCl 500 MG TABLET PO ×2 (08:29→17:30)
--- NOTE | 2022-05-23 11:22 | P.PNPSI_ITS ---
Subjective Subjective Date of Service: 05/23/22 Reason For Visit: Mood Mental Status Exam Mental Status Exam Narrative: Appearance: wearing casual clothing, fair hygiene, unkempt hair, in NAD, ambulating with walker. Behavior: cooperative Psychomotor: no agitation or retardation Speech: clear, normal rate/rhythm/volume, spontaneous TP: linear TC: no overt psychosis, asking for dentist for pain Mood: okay Affect: congruent, non labile SI: none HI: none AH/VH: none Delusions: none Insight/judgment: impaired x 2. Diagnostics Vital Signs (24Hr): Vital Signs - 24 hr 05/22/22 11:25 05/23/22 06:00 Temperature 97.6 F 97.9 F Pulse Rate 85 69 Respiratory Rate 18 18 Blood Pressure 104/99 H 148/75 H Pulse Oximetry 93 97 Oxygen Delivery Method Room Air Room Air BMI result Body Mass Index 23.8 Labs 05/12/22 09:30 05/18/22 07:49 Labs: Laboratory Results - last 48 hr 05/23/22 07:44 POC Glucose 137 H Imaging Radiology Impressions: ITS Impressions Chest CT 01/10/22 15:11 IMPRESSION: Bilateral small pulmonary nodules, left greater than right. Biapical pleural and parenchymal scarring. 1.1 x 1.4 cm heterogeneous or semisolid right apical nodule, question related to pleural and parenchymal scarring. 1.5 cm partially calcified left thyroid nodule. Based on patient age in size, this does not meet criteria for follow-up. Moderate coronary artery calcification. Fleischner guidelines were followed. Chest CT 04/01/22 14:44 IMPRESSION: *Unchanged semisolid 1.5 cm x 1.0 cm nodule within the apex of the right pulmonary lobe. Per the Fleischner Society 2017 revised guidelines, as clinically indicated recommend annual screening CT to demonstrate stability to demonstrate ultimate 5 year stability. *Unchanged small number of scattered solid pulmonary nodules ranging in size up to 6 mm diameter stable compared with 01/10/2022. *Moderate-marked diffuse coronary artery calcific atherosclerosis. *Partially visualized posttreatment related changes of the right breast. Head CT 04/18/22 09:11 IMPRESSION: No acute intracranial pathology. Chest X-Ray 05/09/22 19:28 IMPRESSION: No acute intrathoracic disease. Medications Medications Current Medications Acetaminophen (Acetaminophen 325 Mg Tablet) 650 mg PO Q6H PRN PRN Reason: Pain, Moderate (Pain Scale 4-6 Last Admin: 05/23/22 03:34 Dose: 650 mg Amlodipine Besylate (Amlodipine Besylate 10 Mg Tablet) 10 mg PO DAILY@1800 [facility]; Protocol Docusate Sodium (Docusate Sodium 100 Mg Capsule) 100 mg PO BID PRN PRN Reason: Constipation Last Admin: 05/03/22 10:39 Dose: 100 mg Guaifenesin (Guaifenesin 100 Mg/5 Ml Liquid) 5 ml PO Q4H PRN PRN Reason: Cough Hydrochlorothiazide (Hydrochlorothiazide 12.5 Mg Tablet) 12.5 mg PO DAILY [facility]; Protocol Last Admin: 05/23/22 08:29 Dose: 12.5 mg Ibuprofen (Ibuprofen 600 Mg Tablet) 600 mg PO Q8H PRN PRN Reason: pain not relieved by tylenol Last Admin: 05/08/22 17:25 Dose: 600 mg Insulin Human Lispro (Insulin Lispro 100 Unit/Ml 3 Ml Vial) 0 unit SUBCUT DAILY [facility]; Protocol Last Admin: 05/23/22 08:29 Dose: Not Given Lidocaine/Diphenhydr/Alum/Mg/Simeth (Mag&Al/Sim/Diphenhyd/Lidocaine 10 Ml Oral.Susp) 10 ml PO Q4H PRN; Protocol PRN Reason: Sore Throat Metformin HCl (Metformin Hcl 500 Mg Tablet) 500 mg PO BIDWM [facility] Last Admin: 05/23/22 08:29 Dose: 500 mg Olanzapine (Olanzapine 5 Mg Tablet) 5 mg PO DAILY@1800 [facility] Olanzapine (Olanzapine 10 Mg Vial) 5 mg IM BEDTIME PRN PRN Reason: refusal of PO Last Admin: 05/22/22 20:35 Dose: 5 mg Oxybutynin Chloride (Oxybutynin Chloride Er 5 Mg Tab.Er.24) 10 mg PO DAILY [facility] Last Admin: 05/23/22 08:29 Dose: 10 mg Trazodone HCl (Trazodone Hcl 50 Mg Tablet) 50 mg PO BEDTIME PRN PRN Reason: insomnia Last Admin: 05/21/22 19:51 Dose: 50 mg Allergies Allergies Allergy/AdvReac Type Severity Reaction Status Date / Time codeine Allergy Unknown Unknown Verified 12/15/21 18:29 sulfadiazine Allergy Unknown Unknown Verified 12/15/21 18:29 Assessment & Plan Assessment & Plan (1) Diabetes mellitus with hyperglycemia: Status: Acute Code(s): E11.65 - Type 2 diabetes mellitus with hyperglycemia (2) Psychosis: Status: Acute Code(s): F29 - Unspecified psychosis not due to a substance or known physiological condition (3) Dementia: Status: Acute Code(s): F03.90 - Unspecified dementia, unspecified severity, without behavioral disturbance, psychotic disturbance, mood disturbance, and anxiety Plan This is an 86 year old female with history of DM, breast cancer, dementia with behavioral disturbance, HTN, HLD, CKD3, pulmonary nodule initially brought to the ED in December after her who was 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 [facility] where she had been getting treatment for psychosis and paranoia, guardianship and Farooq's order obtained, and had been doing fairly well until she was diagnosed with covid 19 on 05/03. At that time she became more lethargic. hospital course complicated further by hyperglycemia. Diabetes with hyperglycemia Hba1c in January was 9.2 but has not been on any diabetic medication. Blood sugar up to 400s today changed to diabetic diet started on SSI, will follow POCs to obtain 24 hour insulin needs and then will add long acting insulin toxic metabolic encephalopathy alert and oriented x2 - seems to be at baseline but still with generalized weakn ess and decreased activity likely multifactorial from recent covid 19 infection, uncontrolled DM and dental infection Dental infection recommend augmentin x 10 days Covid 19 diagnosed 05/03 s/p remdesivir x 3 days cxr was negative at that time afebrile, no respiratory symptoms, no hypoxia at this time CKD3 creatinine stable HTN overall BP under adequate control continue HCTZ, norvasc Pulmonary nodules oncology following Mood continue management per psychiatric team 05/19 continue tx. 05/20/22 cont plan of care some improvement s/p covid 05/21/2022 Continue plan of care encourage ambulation 05/23 continue tx. pending rescheduling dentist appointment. she completed antibiotic for tooth infection but has rotten/broken molars and teeth. Reason for contiued inpatient stay Substantial Risk for: inability to function Time Spent With Patient Time: Total time managing care of this patient today ____ minutes.
--- NOTE | 2022-05-23 12:38 | HO.PSYCHPN ---
Subjective Subjective Date of Service: 05/24/22 Reason For Visit: Mood Subjective Notes: Section 8 Interim History: Pt sitting in cafeteria, asks this marketing writer about dentist and reports tooth pain. She denies SI/HI. Pt sleeping and eating well. No behavioral concerns. She is ambulating better with walker. No SOB. Medication Compliance: Yes Side effects from medications: No Attending Groups: Intermittent Review of Systems Review of Systems Yes all other systems are reviewed and are negative and Unobtainable due to mental status Constitutional: Reports no additional constitutional complaints, Denies chills and Denies fever(s) Eyes: Reports no additional eye complaints Reports system reviewed and no additional complaints, except as documented Cardiovascular: Reports no additional cardiovascular complaints, Denies chest pain and Denies dyspnea Respiratory: Reports no additional respiratory complaints, Denies cough and Denies dyspnea Gastrointestinal: Reports no additional gastrointestinal complaints Musculoskeletal: Reports no additional musculoskeletal complaints Skin/Breast: Reports system reviewed and no additional complaints, except as docu Reports system reviewed and no additional complaints, except as documented and Reports confusion (at times speaking randomly and changing subject) Psychiatric: Reports no additional psychiatric complaints, Reports as per HPI and Reports confusion (at times speaking randomly and changing subject) Endocrine: Reports no additional endocrine complaints Hematologic/Lymphatic: Reports no additional hematologic/lymphatic complaints Allergic/Immunologic: Reports no additional allergic/immunologic complaints Mental Status Exam Mental Status Exam Narrative: Appearance: wearing casual clothing lying in bed Behavior: irritable Psychomotor: no agitation or retardation Speech: clear, normal rate/rhythm/volume, spontaneous TP: linear TC: no overt psychosis, asking for dentist for pain Mood: okay Affect: congruent, non labile SI: none HI: none AH/VH: none Delusions: none Insight/judgment: impaired x 2. Diagnostics Vital Signs (24Hr): BMI result Body Mass Index 23.8 Labs 05/12/22 09:30 05/26/22 09:00 Labs: Laboratory Results - last 48 hr 05/25/22 05/26/22 05/26/22 08:11 07:54 09:00 Creatinine 1.21 Estim Creat Clear Calc 33.6 Estimated GFR 42 POC Glucose 164 H 144 H Imaging Radiology Impressions: ITS Impressions Chest CT 01/10/22 15:11 IMPRESSION: Bilateral small pulmonary nodules, left greater than right. Biapical pleural and parenchymal scarring. 1.1 x 1.4 cm heterogeneous or semisolid right apical nodule, question related to pleural and parenchymal scarring. 1.5 cm partially calcified left thyroid nodule. Based on patient age in size, this does not meet criteria for follow-up. Moderate coronary artery calcification. Fleischner guidelines were followed. Chest CT 04/01/22 14:44 IMPRESSION: *Unchanged semisolid 1.5 cm x 1.0 cm nodule within the apex of the right pulmonary lobe. Per the Fleischner Society 2017 revised guidelines, as clinically indicated recommend annual screening CT to demonstrate stability to demonstrate ultimate 5 year stability. *Unchanged small number of scattered solid pulmonary nodules ranging in size up to 6 mm diameter stable compared with 01/10/2022. *Moderate-marked diffuse coronary artery calcific atherosclerosis. *Partially visualized posttreatment related changes of the right breast. Head CT 04/18/22 09:11 IMPRESSION: No acute intracranial pathology. Chest X-Ray 05/09/22 19:28 IMPRESSION: No acute intrathoracic disease. Medications Medications Current Medications Acetaminophen (Acetaminophen 325 Mg Tablet) 650 mg PO Q6H PRN PRN Reason: Pain, Moderate (Pain Scale 4-6 Last Admin: 05/23/22 03:34 Dose: 650 mg Amlodipine Besylate (Amlodipine Besylate 10 Mg Tablet) 10 mg PO DAILY@1800 [facility]; Protocol Last Admin: 05/25/22 17:13 Dose: 10 mg Docusate Sodium (Docusate Sodium 100 Mg Capsule) 100 mg PO BID PRN PRN Reason: Constipation Last Admin: 05/03/22 10:39 Dose: 100 mg Guaifenesin (Guaifenesin 100 Mg/5 Ml Liquid) 5 ml PO Q4H PRN PRN Reason: Cough Hydrochlorothiazide (Hydrochlorothiazide 12.5 Mg Tablet) 12.5 mg PO DAILY [facility]; Protocol Last Admin: 05/26/22 08:48 Dose: 12.5 mg Ibuprofen (Ibuprofen 600 Mg Tablet) 600 mg PO Q8H PRN PRN Reason: pain not relieved by tylenol Last Admin: 05/08/22 17:25 Dose: 600 mg Insulin Human Lispro (Insulin Lispro 100 Unit/Ml 3 Ml Vial) 0 unit SUBCUT DAILY [facility]; Protocol Last Admin: 05/26/22 07:57 Dose: Not Given Lidocaine/Diphenhydr/Alum/Mg/Simeth (Mag&Al/Sim/Diphenhyd/Lidocaine 10 Ml Oral.Susp) 10 ml PO Q4H PRN; Protocol PRN Reason: Sore Throat Metformin HCl (Metformin Hcl 500 Mg Tablet) 500 mg PO BIDWM [facility] Last Admin: 05/26/22 08:48 Dose: 500 mg Olanzapine (Olanzapine 5 Mg Tablet) 5 mg PO DAILY@1800 [facility] Last Admin: 05/25/22 17:13 Dose: 5 mg Olanzapine (Olanzapine 10 Mg Vial) 5 mg IM BEDTIME PRN PRN Reason: refusal of PO Last Admin: 05/22/22 20:35 Dose: 5 mg Oxybutynin Chloride (Oxybutynin Chloride Er 5 Mg Tab.Er.24) 10 mg PO DAILY [facility] Last Admin: 05/26/22 08:48 Dose: 10 mg Trazodone HCl (Trazodone Hcl 50 Mg Tablet) 50 mg PO BEDTIME PRN PRN Reason: insomnia Last Admin: 05/21/22 19:51 Dose: 50 mg Allergies Allergies Allergy/AdvReac Type Severity Reaction Status Date / Time codeine Allergy Unknown Unknown Verified 12/15/21 18:29 sulfadiazine Allergy Unknown Unknown Verified 12/15/21 18:29 Assessment & Plan Assessment & Plan (1) Multifactorial dementia: Status: Acute Code(s): F03.90 - Unspecified dementia, unspecified severity, without behavioral disturbance, psychotic disturbance, mood disturbance, and anxiety Plan This is an 86 year old female with history of DM, breast cancer, dementia with behavioral disturbance, HTN, HLD, CKD3, pulmonary nodule initially brought to the ED in December after her who was her primary photography professor and her house was found to be uninhabitable. She [facility] where she had been getting treatment for psychosis and paranoia, guardianship and Farooq's order obtained, and had been doing fairly well until she was diagnosed with covid 19 on 05/03. At that time she became more lethargic. hospital course complicated further by hyperglycemia. Diabetes with hyperglycemia Hba1c in January was 9.2 but has not been on any diabetic medication. Blood sugar up to 400s today changed to diabetic diet started on SSI, will follow POCs to obtain 24 hour insulin needs and then will add long acting insulin toxic metabolic encephalopathy alert and oriented x2 - seems to be at baseline but still with generalized weakness and decreased activity likely multifactorial from recent covid 19 infection, uncontrolled DM and dental infection Dental infection recommend augmentin x 10 days Covid 19 diagnosed 05/03 s/p remdesivir x 3 days cxr was negative at that time afebrile, no respiratory symptoms, no hypoxia at this time CKD3 creatinine stable HTN overall BP under adequate control continue HCTZ, norvasc Pulmonary nodules oncology following Mood continue management per psychiatric team 05/19 continue tx. 05/20/22 cont plan of care some improvement s/p covid 05/21/2022 Continue plan of care encourage ambulation 05/22/22 encourage ambulation cont medication see if we can get to dentist 05/23 continue current medications. Reason for contiued inpatient stay Substantial Risk for: inability to function Time Spent With Patient Time: Total time managing care of this patient today ____ minutes.
[2022-05-23] MEDS: OLANZapine 5 MG TABLET PO (17:30)
[2022-05-23] MEDS: amLODIPine Besylate 10 MG TABLET PO (17:31)
[2022-05-23 18:00] VITALS: BP 137/63; PULSE 65; RESP 18; TEMP 36.3; O2SAT 94
[2022-05-24 06:00] VITALS: BP 134/62; PULSE 81; RESP 18; TEMP 36.9; O2SAT 94
[2022-05-24 08:38] LABS: Glucose, Whole Blood 200 mg/dL (60-115)
[2022-05-24] MEDS: Insulin Lispro 100 UNIT/ML 3 ML VIAL SUBCUT (08:42)
[2022-05-24] MEDS: hydroCHLOROthiazide 12.5 MG TABLET PO (08:43)
[2022-05-24] MEDS: metFORMIN HCl 500 MG TABLET PO ×2 (08:43→17:27)
--- NOTE | 2022-05-24 12:39 | HO.PSYCHPN ---
Subjective Subjective Date of Service: 05/24/22 Reason For Visit: Mood Subjective Notes: Section 8 Interim History: Pt visible on the unit. She is does not remember asking to go to dentist when this investment underwriter informed her that we're working on scheduling one. She denies SI/HI. No behavioral concerns. Medication Compliance: Yes Side effects from medications: No Review of Systems Review of Systems Yes all other systems are reviewed and are negative and Unobtainable due to mental status Constitutional: Reports no additional constitutional complaints, Denies chills and Denies fever(s) Eyes: Reports no additional eye complaints Reports system reviewed and no additional complaints, except as documented Cardiovascular: Reports no additional cardiovascular complaints, Denies chest pain and Denies dyspnea Respiratory: Reports no additional respiratory complaints, Denies cough and Denies dyspnea Gastrointestinal: Reports no additional gastrointestinal complaints Musculoskeletal: Reports no additional musculoskeletal complaints Skin/Breast: Reports system reviewed and no additional complaints, except as docu Reports system reviewed and no additional complaints, except as documented and Reports confusion (at times speaking randomly and changing subject) Psychiatric: Reports no additional psychiatric complaints, Reports as per HPI and Reports confusion (at times speaking randomly and changing subject) Endocrine: Reports no additional endocrine complaints Hematologic/Lymphatic: Reports no additional hematologic/lymphatic complaints Allergic/Immunologic: Reports no additional allergic/immunologic complaints Mental Status Exam Mental Status Exam Narrative: Appearance: wearing casual clothing lying in bed Behavior: irritable Psychomotor: no agitation or retardation Speech: clear, normal rate/rhythm/volume, spontaneous TP: linear TC: no overt psychosis, asking for dentist for pain Mood: okay Affect: congruent, non labile SI: none HI: none AH/VH: none Delusions: none Insight/judgment: impaired x 2. Diagnostics Vital Signs (24Hr): BMI result Body Mass Index 23.8 Labs 05/12/22 09:30 05/26/22 09:00 Labs: Laboratory Results - last 48 hr 05/25/22 05/26/22 05/26/22 08:11 07:54 09:00 Creatinine 1.21 Estim Creat Clear Calc 33.6 Estimated GFR 42 POC Glucose 164 H 144 H Imaging Radiology Impressions: ITS Impressions Chest CT 01/10/22 15:11 IMPRESSION: Bilateral small pulmonary nodules, left greater than right. Biapical pleural and parenchymal scarring. 1.1 x 1.4 cm heterogeneous or semisolid right apical nodule, question related to pleural and parenchymal scarring. 1.5 cm partially calcified left thyroid nodule. Based on patient age in size, this does not meet criteria for follow-up. Moderate coronary artery calcification. Fleischner guidelines were followed. Chest CT 04/01/22 14:44 IMPRESSION: *Unchanged semisolid 1.5 cm x 1.0 cm nodule within the apex of the right pulmonary lobe. Per the Fleischner Society 2017 revised guidelines, as clinically indicated recommend annual screening CT to demonstrate stability to demonstrate ultimate 5 year stability. *Unchanged small number of scattered solid pulmonary nodules ranging in size up to 6 mm diameter stable compared with 01/10/2022. *Moderate-marked diffuse coronary artery calcific atherosclerosis. *Partially visualized posttreatment related changes of the right breast. Head CT 04/18/22 09:11 IMPRESSION: No acute intracranial pathology. Chest X-Ray 05/09/22 19:28 IMPRESSION: No acute intrathoracic disease. Medications Medications Current Medications Acetaminophen (Acetaminophen 325 Mg Tablet) 650 mg PO Q6H PRN PRN Reason: Pain, Moderate (Pain Scale 4-6 Last Admin: 05/23/22 03:34 Dose: 650 mg Amlodipine Besylate (Amlodipine Besylate 10 Mg Tablet) 10 mg PO DAILY@1800 [facility]; Protocol Last Admin: 05/25/22 17:13 Dose: 10 mg Docusate Sodium (Docusate Sodium 100 Mg Capsule) 100 mg PO BID PRN PRN Reason: Constipation Last Admin: 05/03/22 10:39 Dose: 100 mg Guaifenesin (Guaifenesin 100 Mg/5 Ml Liquid) 5 ml PO Q4H PRN PRN Reason: Cough Hydrochlorothiazide (Hydrochlorothiazide 12.5 Mg Tablet) 12.5 mg PO DAILY [facility]; Protocol Last Admin: 05/26/22 08:48 Dose: 12.5 mg Ibuprofen (Ibuprofen 600 Mg Tablet) 600 mg PO Q8H PRN PRN Reason: pain not relieved by tylenol Last Admin: 05/08/22 17:25 Dose: 600 mg Insulin Human Lispro (Insulin Lispro 100 Unit/Ml 3 Ml Vial) 0 unit SUBCUT DAILY [facility]; Protocol Last Admin: 05/26/22 07:57 Dose: Not Given Lidocaine/Diphenhydr/Alum/Mg/Simeth (Mag&Al/Sim/Diphenhyd/Lidocaine 10 Ml Oral.Susp) 10 ml PO Q4H PRN; Protocol PRN Reason: Sore Throat Metformin HCl (Metformin Hcl 500 Mg Tablet) 500 mg PO BIDWM [facility] Last Admin: 05/26/22 08:48 Dose: 500 mg Olanzapine (Olanzapine 5 Mg Tablet) 5 mg PO DAILY@1800 [facility] Last Admin: 05/25/22 17:13 Dose: 5 mg Olanzapine (Olanzapine 10 Mg Vial) 5 mg IM BEDTIME PRN PRN Reason: refusal of PO Last Admin: 05/22/22 20:35 Dose: 5 mg Oxybutynin Chloride (Oxybutynin Chloride Er 5 Mg Tab.Er.24) 10 mg PO DAILY [facility] Last Admin: 05/26/22 08:48 Dose: 10 mg Trazodone HCl (Trazodone Hcl 50 Mg Tablet) 50 mg PO BEDTIME PRN PRN Reason: insomnia Last Admin: 05/21/22 19:51 Dose: 50 mg Allergies Allergies Allergy/AdvReac Type Severity Reaction Status Date / Time codeine Allergy Unknown Unknown Verified 12/15/21 18:29 sulfadiazine Allergy Unknown Unknown Verified 12/15/21 18:29 Assessment & Plan Assessment & Plan (1) Multifactorial dementia: Status: Acute Code(s): F03.90 - Unspecified dementia, unspecified severity, without behavioral disturbance, psychotic disturbance, mood disturbance, and anxiety Plan This is an 86 year old female with history of DM, breast cancer, dementia with behavioral disturbance, HTN, HLD, CKD3, pulmonary nodule initially brought to the ED in December after her who was 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 [facility] where she had been getting treatment for psychosis and paranoia, guardianship and Farooq's order obtained, and had been doing fairly well until she was diagnosed with covid 19 on 05/03. At that time she became more lethargic. hospital course complicated further by hyperglycemia. Diabetes with hyperglycemia Hba1c in January was 9.2 but has not been on any diabetic medication. Blood sugar up to 400s today changed to diabetic diet started on SSI, will follow POCs to obtain 24 hour insulin needs and then will add long acting insulin toxic metabolic encephalopathy alert and oriented x2 - seems to be at baseline but still with generalized weakness and decreased activity likely multifactorial from recent covid 19 infection, uncontrolled DM and dental infection Dental infection recommend augmentin x 10 days Covid 19 diagnosed 05/03 s/p remdesivir x 3 days cxr was negative at that time afebrile, no respiratory symptoms, no hypoxia at this time CKD3 creatinine stable HTN overall BP under adequate control continue HCTZ, norvasc Pulmonary nodules oncology following Mood continue management per psychiatric team 05/19 continue tx. 05/20/22 cont plan of care some improvement s/p covid 05/21/2022 Continue plan of care encourage ambulation 05/22/22 encourage ambulation cont medication see if we can get to dentist 05/23 continue current medications. 05/24 continue tx. Per . Mya Montgomery working on detal appointment. Reason for contiued inpatient stay Substantial Risk for: inability to function Time Spent With Patient Time: Total time managing care of this patient today ____ minutes.
[2022-05-24] MEDS: amLODIPine Besylate 10 MG TABLET PO (17:27)
[2022-05-24] MEDS: OLANZapine 5 MG TABLET PO (17:27)
[2022-05-25 06:00] VITALS: BP 140/68; PULSE 67; RESP 18; TEMP 36.7; O2SAT 94
[2022-05-25 08:14] LABS: Glucose, Whole Blood 164 mg/dL (60-115)
[2022-05-25] MEDS: Insulin Lispro 100 UNIT/ML 3 ML VIAL SUBCUT (08:22)
[2022-05-25] MEDS: hydroCHLOROthiazide 12.5 MG TABLET PO (08:23)
[2022-05-25] MEDS: metFORMIN HCl 500 MG TABLET PO ×2 (08:23→17:13)
--- NOTE | 2022-05-25 12:32 | P.PNPSI_ITS ---
Subjective Subjective Date of Service: 05/25/22 Reason For Visit: Mood Subjective Notes: Section 8 Interim History: Pt reports doing well but again reports tooth pain and asks about update on dental appointment. Per nursing, pt sleeping and eating well. No SI/HI. No behavioral concerns. Medication Compliance: Yes Side effects from medications: No Review of Systems Review of Systems Yes all other systems are reviewed and are negative and Unobtainable due to mental status Constitutional: Reports no additional constitutional complaints, Denies chills and Denies fever(s) Eyes: Reports no additional eye complaints Reports system reviewed and no additional complaints, except as documented Cardiovascular: Reports no additional cardiovascular complaints, Denies chest pain and Denies dyspnea Respiratory: Reports no additional respiratory complaints, Denies cough and Denies dyspnea Gastrointestinal: Reports no additional gastrointestinal complaints Musculoskeletal: Reports no additional musculoskeletal complaints Skin/Breast: Reports system reviewed and no additional complaints, except as docu Reports system reviewed and no additional complaints, except as documented and Reports confusion (at times speaking randomly and changing subject) Psychiatric: Reports no additional psychiatric complaints, Reports as per HPI and Reports confusion (at times speaking randomly and changing subject) Endocrine: Reports no additional endocrine complaints Hematologic/Lymphatic: Reports no additional hematologic/lymphatic complaints Allergic/Immunologic: Reports no additional allergic/immunologic complaints Mental Status Exam Mental Status Exam Narrative: Appearance: wearing casual clothing lying in bed Behavior: irritable Psychomotor: no agitation or retardation Speech: clear, normal rate/rhythm/volume, spontaneous TP: linear TC: no overt psychosis, asking for dentist for pain Mood: okay Affect: congruent, non labile SI: none HI: none AH/VH: none Delusions: none Insight/judgment: impaired x 2. Diagnostics Vital Signs (24Hr): BMI result Body Mass Index 23.8 Labs 05/12/22 09:30 05/26/22 09:00 Labs: Laboratory Results - last 48 hr 05/25/22 05/26/22 05/26/22 08:11 07:54 09:00 Creatinine 1.21 Estim Creat Clear Calc 33.6 Estimated GFR 42 POC Glucose 164 H 144 H Imaging Radiology Impressions: ITS Impressions Chest CT 01/10/22 15:11 IMPRESSION: Bilateral small pulmonary nodules, left greater than right. Biapical pleural and parenchymal scarring. 1.1 x 1.4 cm heterogeneous or semisolid right apical nodule, question related to pleural and parenchymal scarring. 1.5 cm partially calcified left thyroid nodule. Based on patient age in size, this does not meet criteria for follow-up. Moderate coronary artery calcification. Fleischner guidelines were followed. Chest CT 04/01/22 14:44 IMPRESSION: *Unchanged semisolid 1.5 cm x 1.0 cm nodule within the apex of the right pulmonary lobe. Per the Fleischner Society 2017 revised guidelines, as clinically indicated recommend annual screening CT to demonstrate stability to demonstrate ultimate 5 year stability. *Unchanged small number of scattered solid pulmonary nodules ranging in size up to 6 mm diameter stable compared with 01/10/2022. *Moderate-marked diffuse coronary artery calcific atherosclerosis. *Partially visualized posttreatment related changes of the right breast. Head CT 04/18/22 09:11 IMPRESSION: No acute intracranial pathology. Chest X-Ray 05/09/22 19:28 IMPRESSION: No acute intrathoracic disease. Medications Medications Current Medications Acetaminophen (Acetaminophen 325 Mg Tablet) 650 mg PO Q6H PRN PRN Reason: Pain, Moderate (Pain Scale 4-6 Last Admin: 05/23/22 03:34 Dose: 650 mg Amlodipine Besylate (Amlodipine Besylate 10 Mg Tablet) 10 mg PO DAILY@1800 [facility]; Protocol Last Admin: 05/25/22 17:13 Dose: 10 mg Docusate Sodium (Docusate Sodium 100 Mg Capsule) 100 mg PO BID PRN PRN Reason: Constipation Last Admin: 05/03/22 10:39 Dose: 100 mg Guaifenesin (Guaifenesin 100 Mg/5 Ml Liquid) 5 ml PO Q4H PRN PRN Reason: Cough Hydrochlorothiazide (Hydrochlorothiazide 12.5 Mg Tablet) 12.5 mg PO DAILY [facility]; Protocol Last Admin: 05/26/22 08:48 Dose: 12.5 mg Ibuprofen (Ibuprofen 600 Mg Tablet) 600 mg PO Q8H PRN PRN Reason: pain not relieved by tylenol Last Admin: 05/08/22 17:25 Dose: 600 mg Insulin Human Lispro (Insulin Lispro 100 Unit/Ml 3 Ml Vial) 0 unit SUBCUT DAILY [facility]; Protocol Last Admin: 05/26/22 07:57 Dose: Not Given Lidocaine/Diphenhydr/Alum/Mg/Simeth (Mag&Al/Sim/Diphenhyd/Lidocaine 10 Ml Oral.Susp) 10 ml PO Q4H PRN; Protocol PRN Reason: Sore Throat Metformin HCl (Metformin Hcl 500 Mg Tablet) 500 mg PO BIDWM [facility] Last Admin: 05/26/22 08:48 Dose: 500 mg Olanzapine (Olanzapine 5 Mg Tablet) 5 mg PO DAILY@1800 [facility] Last Admin: 05/25/22 17:13 Dose: 5 mg Olanzapine (Olanzapine 10 Mg Vial) 5 mg IM BEDTIME PRN PRN Reason: refusal of PO Last Admin: 05/22/22 20:35 Dose: 5 mg Oxybutynin Chloride (Oxybutynin Chloride Er 5 Mg Tab.Er.24) 10 mg PO DAILY [facility] Last Admin: 05/26/22 08:48 Dose: 10 mg Trazodone HCl (Trazodone Hcl 50 Mg Tablet) 50 mg PO BEDTIME PRN PRN Reason: insomnia Last Admin: 05/21/22 19:51 Dose: 50 mg Allergies Allergies Allergy/AdvReac Type Severity Reaction Status Date / Time codeine Allergy Unknown Unknown Verified 12/15/21 18:29 sulfadiazine Allergy Unknown Unknown Verified 12/15/21 18:29 Assessment & Plan Assessment & Plan (1) Multifactorial dementia: Status: Acute Code(s): F03.90 - Unspecified dementia, unspecified severity, without behavioral disturba nce, psychotic disturbance, mood disturbance, and anxiety Plan This is an 86 year old female with history of DM, breast cancer, dementia with behavioral disturbance, HTN, HLD, CKD3, pulmonary nodule initially brought to the ED in December after her who was 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 [facility] where she had been getting treatment for psychosis and paranoia, guardianship and Farooq's order obtained, and had been doing fairly well until she was diagnosed with covid 19 on 05/03. At that time she became more lethargic. hospital course complicated further by hyperglycemia. Diabetes with hyperglycemia Hba1c in January was 9.2 but has not been on any diabetic medication. Blood sugar up to 400s today changed to diabetic diet started on SSI, will follow POCs to obtain 24 hour insulin needs and then will add long acting insulin toxic metabolic encephalopathy alert and oriented x2 - seems to be at baseline but still with generalized weakness and decreased activity likely multifactorial from recent covid 19 infection, uncontrolled DM and dental infection Dental infection recommend augmentin x 10 days Covid 19 diagnosed 05/03 s/p remdesivir x 3 days cxr was negative at that time afebrile, no respiratory symptoms, no hypoxia at this time CKD3 creatinine stable HTN overall BP under adequate control continue HCTZ, norvasc Pulmonary nodules oncology following Mood continue management per psychiatric team 05/19 continue tx. 05/20/22 cont plan of care some improvement s/p covid 05/21/2022 Continue plan of care encourage ambulation 05/22/22 encourage ambulation cont medication see if we can get to dentist 05/23 continue current medications. 05/24 continue tx. Per dir. Mya Montgomery working on dental appointment. 05/25 continue tx. pending dental appointment. Reason for contiued inpatient stay Substantial Risk for: inability to function Time Spent With Patient Time: Total time managing care of this patient today ____ minutes.
[2022-05-25] MEDS: OLANZapine 5 MG TABLET PO (17:13)
[2022-05-25] MEDS: amLODIPine Besylate 10 MG TABLET PO (17:13)
[2022-05-26 07:58] LABS: Glucose, Whole Blood 144 mg/dL (60-115)
[2022-05-26] MEDS: metFORMIN HCl 500 MG TABLET PO ×2 (08:48→17:24)
[2022-05-26] MEDS: hydroCHLOROthiazide 12.5 MG TABLET PO (08:48)
[2022-05-26 09:21] LABS: Creatinine Clr Calc Pharmacy 33.6; Estimated Glomerular Filt Rate 42
--- NOTE | 2022-05-26 09:44 | HO.PSYCHPN ---
Subjective Subjective Date of Service: 05/26/22 Reason For Visit: Mood Subjective Notes: Section 8 Interim History: Pt reports feeling well. She is pleasant on approach. No Behavioral concerns. She is eating and sleeping well. She asks about dental appointment. Medication Compliance: Yes Side effects from medications: No Review of Systems Review of Systems Yes all other systems are reviewed and are negative and Unobtainable due to mental status Constitutional: Reports no additional constitutional complaints, Denies chills and Denies fever(s) Eyes: Reports no additional eye complaints Reports system reviewed and no additional complaints, except as documented Cardiovascular: Reports no additional cardiovascular complaints, Denies chest pain and Denies dyspnea Respiratory: Reports no additional respiratory complaints, Denies cough and Denies dyspnea Gastrointestinal: Reports no additional gastrointestinal complaints Musculoskeletal: Reports no additional musculoskeletal complaints Skin/Breast: Reports system reviewed and no additional complaints, except as docu Reports system reviewed and no additional complaints, except as documented and Reports confusion (at times speaking randomly and changing subject) Psychiatric: Reports no additional psychiatric complaints, Reports as per HPI and Reports confusion (at times speaking randomly and changing subject) Endocrine: Reports no additional endocrine complaints Hematologic/Lymphatic: Reports no additional hematologic/lymphatic complaints Allergic/Immunologic: Reports no additional allergic/immunologic complaints Mental Status Exam Mental Status Exam Narrative: Appearance: wearing casual clothing lying in bed Behavior: pleasant Psychomotor: no agitation or retardation Speech: clear, normal rate/rhythm/volume, spontaneous TP: linear TC: no overt psychosis, asking for dentist for pain Mood: okay Affect: congruent, non labile SI: none HI: none AH/VH: none Delusions: none Insight/judgment: impaired x 2. Diagnostics Vital Signs (24Hr): BMI result Body Mass Index 23.8 Labs 05/12/22 09:30 05/26/22 09:00 Labs: Laboratory Results - last 48 hr 05/25/22 05/26/22 05/26/22 08:11 07:54 09:00 Creatinine 1.21 Estim Creat Clear Calc 33.6 Estimated GFR 42 POC Glucose 164 H 144 H Imaging Radiology Impressions: ITS Impressions Chest CT 01/10/22 15:11 IMPRESSION: Bilateral small pulmonary nodules, left greater than right. Biapical pleural and parenchymal scarring. 1.1 x 1.4 cm heterogeneous or semisolid right apical nodule, question related to pleural and parenchymal scarring. 1.5 cm partially calcified left thyroid nodule. Based on patient age in size, this does not meet criteria for follow-up. Moderate coronary artery calcification. Fleischner guidelines were followed. Chest CT 04/01/22 14:44 IMPRESSION: *Unchanged semisolid 1.5 cm x 1.0 cm nodule within the apex of the right pulmonary lobe. Per the Fleischner Society 2017 revised guidelines, as clinically indicated recommend annual screening CT to demonstrate stability to demonstrate ultimate 5 year stability. *Unchanged small number of scattered solid pulmonary nodules ranging in size up to 6 mm diameter stable compared with 01/10/2022. *Moderate-marked diffuse coronary artery calcific atherosclerosis. *Partially visualized posttreatment related changes of the right breast. Head CT 04/18/22 09:11 IMPRESSION: No acute intracranial pathology. Chest X-Ray 05/09/22 19:28 IMPRESSION: No acute intrathoracic disease. Medications Medications Current Medications Acetaminophen (Acetaminophen 325 Mg Tablet) 650 mg PO Q6H PRN PRN Reason: Pain, Moderate (Pain Scale 4-6 Last Admin: 05/23/22 03:34 Dose: 650 mg Amlodipine Besylate (Amlodipine Besylate 10 Mg Tablet) 10 mg PO DAILY@1800 [facility]; Protocol Last Admin: 05/25/22 17:13 Dose: 10 mg Docusate Sodium (Docusate Sodium 100 Mg Capsule) 100 mg PO BID PRN PRN Reason: Constipation Last Admin: 05/03/22 10:39 Dose: 100 mg Guaifenesin (Guaifenesin 100 Mg/5 Ml Liquid) 5 ml PO Q4H PRN PRN Reason: Cough Hydrochlorothiazide (Hydrochlorothiazide 12.5 Mg Tablet) 12.5 mg PO DAILY [facility]; Protocol Last Admin: 05/26/22 08:48 Dose: 12.5 mg Ibuprofen (Ibuprofen 600 Mg Tablet) 600 mg PO Q8H PRN PRN Reason: pain not relieved by tylenol Last Admin: 05/08/22 17:25 Dose: 600 mg Insulin Human Lispro (Insulin Lispro 100 Unit/Ml 3 Ml Vial) 0 unit SUBCUT DAILY [facility]; Protocol Last Admin: 05/26/22 07:57 Dose: Not Given Lidocaine/Diphenhydr/Alum/Mg/Simeth (Mag&Al/Sim/Diphenhyd/Lidocaine 10 Ml Oral.Susp) 10 ml PO Q4H PRN; Protocol PRN Reason: Sore Throat Metformin HCl (Metformin Hcl 500 Mg Tablet) 500 mg PO BIDWM [facility] Last Admin: 05/26/22 08:48 Dose: 500 mg Olanzapine (Olanzapine 5 Mg Tablet) 5 mg PO DAILY@1800 [facility] Last Admin: 05/25/22 17:13 Dose: 5 mg Olanzapine (Olanzapine 10 Mg Vial) 5 mg IM BEDTIME PRN PRN Reason: refusal of PO Last Admin: 05/22/22 20:35 Dose: 5 mg Oxybutynin Chloride (Oxybutynin Chloride Er 5 Mg Tab.Er.24) 10 mg PO DAILY [facility] Last Admin: 05/26/22 08:48 Dose: 10 mg Trazodone HCl (Trazodone Hcl 50 Mg Tablet) 50 mg PO BEDTIME PRN PRN Reason: insomnia Last Admin: 05/21/22 19:51 Dose: 50 mg Allergies Allergies Allergy/AdvReac Type Severity Reaction Status Date / Time codeine Allergy Unknown Unknown Verified 12/15/21 18:29 sulfadiazine Allergy Unknown Unknown Verified 12/15/21 18:29 Assessment & Plan Assessment & Plan (1) Multifactorial dementia: Status: Acute Code(s): F03.90 - Unspecified dementia, unspecified severity, without behavioral disturbance, psychotic disturbance, mood disturbance, and anxiety Plan This is an 86 year old female with history of DM, breast cancer, dementia with behavioral disturbance, HTN, HLD, CKD3, pulmonary nodule initially brought to the ED in December after her who was her primary accounts payable specialist and her house was found to be uninhabitable. [facility] where she had been getting treatment for psychosis and paranoia, guardianship and Farooq's order obtained, and had been doing fairly well until she was diagnosed with covid 19 on 05/03. At that time she became more lethargic. hospital course complicated further by hyperglycemia. Diabetes with hyperglycemia Hba1c in January was 9.2 but has not been on any diabetic medication. Blood sugar up to 400s today changed to diabetic diet started on SSI, will follow POCs to obtain 24 hour insulin needs and then will add long acting insulin toxic metabolic encephalopathy alert and oriented x2 - seems to be at baseline but still with generalized weakness and decreased activity likely multifactorial from recent covid 19 infection, uncontrolled DM and dental infection Dental infection recommend augmentin x 10 days Covid 19 diagnosed 2/15 s/p remdesivir x 3 days cxr was negative at that time afebrile, no respiratory symptoms, no hypoxia at this time CKD3 creatinine stable HTN overall BP under adequate control continue HCTZ, norvasc Pulmonary nodules oncology following Mood continue management per psychiatric team 05/19 continue tx. 05/20/22 cont plan of care some improvement s/p covid 05/21/2022 Continue plan of care encourage ambulation 05/22/22 encourage ambulation cont medication see if we can get to dentist 05/23 continue current medications. 05/24 continue tx. Per dir. Mya Montgomery working on dental appointment. 05/25 continue tx. pending dental appointment. 05/26 continue tx. pending dental appointment. Reason for contiued inpatient stay Substantial Risk for: inability to function Time Spent With Patient Time: Total time managing care of this patient today ____ minutes.
[2022-05-26 10:13] VITALS: BP 126/61; PULSE 67; RESP 16; TEMP 36; O2SAT 95
[2022-05-26] MEDS: amLODIPine Besylate 10 MG TABLET PO (17:24)
[2022-05-26] MEDS: OLANZapine 5 MG TABLET PO (17:24)
[2022-05-26 18:00] VITALS: BP 130/79; PULSE 63; RESP 18; TEMP 36.6; O2SAT 94
[2022-05-26] MEDS: traZODone HCL 50 MG TABLET PO (20:30)
[2022-05-27 06:00] VITALS: BP 129/96; PULSE 66; RESP 18; O2SAT 96
[2022-05-27] MEDS: hydroCHLOROthiazide 12.5 MG TABLET PO (08:33)
[2022-05-27] MEDS: metFORMIN HCl 500 MG TABLET PO ×2 (08:34→17:04)
--- NOTE | 2022-05-27 09:41 | HO.PSYCHPN ---
Subjective Subjective Date of Service: 05/27/22 Reason For Visit: Mood Subjective Notes: Conditional Voluntary Interim History: Pt was seen in rounds today. Records and plans were reviewed. She has been pleasant and cooperative. She is medication compliant. She is recovered from COVID. Continues to be awaiting placement. She asked about being able to see a dentist and I told her that it was not possible over the weekend. No changes were made today Medication Compliance: Yes Side effects from medications: No Review of Systems Review of Systems Dental issues Yes all other systems are reviewed and are negative Diagnostics Vital Signs (24Hr): Vital Signs - 24 hr 05/26/22 10:13 05/26/22 18:00 Temperature 96.8 F 97.8 F Pulse Rate 67 63 Respiratory Rate 16 18 Blood Pressure 126/61 130/79 Pulse Oximetry 95 94 Oxygen Delivery Method Room Air Room Air BMI result Body Mass Index 23.8 Labs 05/12/22 09:30 05/26/22 09:00 Labs: Laboratory Results - last 48 hr 05/26/22 05/26/22 07:54 09:00 Creatinine 1.21 Estim Creat Clear Calc 33.6 Estimated GFR 42 POC Glucose 144 H Imaging Radiology Impressions: ITS Impressions Chest CT 01/10/22 15:11 IMPRESSION: Bilateral small pulmonary nodules, left greater than right. Biapical pleural and parenchymal scarring. 1.1 x 1.4 cm heterogeneous or semisolid right apical nodule, question related to pleural and parenchymal scarring. 1.5 cm partially calcified left thyroid nodule. Based on patient age in size, this does not meet criteria for follow-up. Moderate coronary artery calcification. Fleischner guidelines were followed. Chest CT 04/01/22 14:44 IMPRESSION: *Unchanged semisolid 1.5 cm x 1.0 cm nodule within the apex of the right pulmonary lobe. Per the Fleischner Society 2017 revised guidelines, as clinically indicated recommend annual screening CT to demonstrate stability to demonstrate ultimate 5 year stability. *Unchanged small number of scattered solid pulmonary nodules ranging in size up to 6 mm diameter stable compared with 01/10/2022. *Moderate-marked diffuse coronary artery calcific atherosclerosis. *Partially visualized posttreatment related changes of the right breast. Head CT 04/18/22 09:11 IMPRESSION: No acute intracranial pathology. Chest X-Ray 05/09/22 19:28 IMPRESSION: No acute intrathoracic disease. Medications Medications Current Medications Acetaminophen (Acetaminophen 325 Mg Tablet) 650 mg PO Q6H PRN PRN Reason: Pain, Moderate (Pain Scale 4-6 Last Admin: 05/23/22 03:34 Dose: 650 mg Amlodipine Besylate (Amlodipine Besylate 10 Mg Tablet) 10 mg PO DAILY@1800 [facility]; Protocol Last Admin: 05/26/22 17:24 Dose: 10 mg Docusate Sodium (Docusate Sodium 100 Mg Capsule) 100 mg PO BID PRN PRN Reason: Constipation Last Admin: 05/03/22 10:39 Dose: 100 mg Guaifenesin (Guaifenesin 100 Mg/5 Ml Liquid) 5 ml PO Q4H PRN PRN Reason: Cough Hydrochlorothiazide (Hydrochlorothiazide 12.5 Mg Tablet) 12.5 mg PO DAILY [facility]; Protocol Last Admin: 05/27/22 08:33 Dose: 12.5 mg Ibuprofen (Ibuprofen 600 Mg Tablet) 600 mg PO Q8H PRN PRN Reason: pain not relieved by tylenol Last Admin: 05/08/22 17:25 Dose: 600 mg Insulin Human Lispro (Insulin Lispro 100 Unit/Ml 3 Ml Vial) 0 unit SUBCUT DAILY [facility]; Protocol Last Admin: 05/27/22 09:34 Dose: Not Given Lidocaine/Diphenhydr/Alum/Mg/Simeth (Mag&Al/Sim/Diphenhyd/Lidocaine 10 Ml Oral.Susp) 10 ml PO Q4H PRN; Protocol PRN Reason: Sore Throat Metformin HCl (Metformin Hcl 500 Mg Tablet) 500 mg PO BIDWM [facility] Last Admin: 05/27/22 08:34 Dose: 500 mg Olanzapine (Olanzapine 5 Mg Tablet) 5 mg PO DAILY@1800 [facility] Last Admin: 05/26/22 17:24 Dose: 5 mg Olanzapine (Olanzapine 10 Mg Vial) 5 mg IM BEDTIME PRN PRN Reason: refusal of PO Last Admin: 05/22/22 20:35 Dose: 5 mg Oxybutynin Chloride (Oxybutynin Chloride Er 5 Mg Tab.Er.24) 10 mg PO DAILY [facility] Last Admin: 05/27/22 08:34 Dose: 10 mg Trazodone HCl (Trazodone Hcl 50 Mg Tablet) 50 mg PO BEDTIME PRN PRN Reason: insomnia Last Admin: 05/26/22 20:30 Dose: 50 mg Allergies Allergies Allergy/AdvReac Type Severity Reaction Status Date / Time codeine Allergy Unknown Unknown Verified 12/15/21 18:29 sulfadiazine Allergy Unknown Unknown Verified 12/15/21 18:29 Assessment & Plan Assessment & Plan (1) Multifactorial dementia: Status: Acute Code(s): F03.90 - Unspecified dementia, unspecified severity, without behavioral disturbance, psychotic disturbance, mood disturbance, and anxiety Plan This is an 86 year old female with history of DM, breast cancer, dementia with behavioral disturbance, HTN, HLD, CKD3, pulmonary nodule initially brought to the ED in December after her who was her primary civil engineer's aide and her house was found to be uninhabitable. [facility] where she had been getting treatment for psychosis and paranoia, guardianship and Farooq's order obtained, and had been doing fairly well until she was diagnosed with covid 19 on 05/03. At that time she became more lethargic. hospital course complicated further by hyperglycemia. Diabetes with hyperglycemia Hba1c in January was 9.2 but has not been on any diabetic medication. Blood sugar up to 400s today changed to diabetic diet started on SSI, will follow POCs to obtain 24 hour insulin needs and then will add long acting insulin toxic metabolic encephalopathy alert and oriented x2 - seems to be at baseline but still with generalized weakness and decreased activity likely multifactorial from recent covid 19 infection, uncontrolled DM and dental infection Dental infection recommend augmentin x 10 days Covid 19 diagnosed 05/03 s/p remdesivir x 3 days cxr was negative at that time afebrile, no respiratory symptoms, no hypoxia at this time CKD3 creatinine stable HTN overall BP under adequate control continue HCTZ, norvasc Pulmonary nodules oncology following Mood continue management per psychiatric team 05/19 continue tx. 05/20/22 cont plan of care some improvement s/p covid 05/21/2022 Continue plan of care encourage ambulation 05/22/22 encourage ambulation cont medication see if we can get to dentist 05/23 continue current medications. 05/24 continue tx. Per dir. Mya Montgomery working on dental appointment. 05/25 continue tx. pending dental appointment. 05/26 continue tx. pending dental appointment. 05/27: Continue current regimen and plans/pending dental appointment Reason for contiued inpatient stay Substantial Risk for: inability to function Time Spent With Patient Time: Total time managing care of this patient today ____ minutes.
[2022-05-27] MEDS: OLANZapine 5 MG TABLET PO (17:04)
[2022-05-27] MEDS: amLODIPine Besylate 10 MG TABLET PO (17:05)
[2022-05-27 18:00] VITALS: BP 163/74; PULSE 73; RESP 18; TEMP 36.5; O2SAT 93
[2022-05-28 08:00] VITALS: BP 144/72; PULSE 68; TEMP 36.3; O2SAT 95
[2022-05-28] MEDS: metFORMIN HCl 500 MG TABLET PO ×2 (08:53→18:07)
[2022-05-28] MEDS: hydroCHLOROthiazide 12.5 MG TABLET PO (08:53)
--- NOTE | 2022-05-28 09:04 | P.PNPSI_ITS ---
Subjective Subjective Date of Service: 05/28/22 Reason For Visit: Mood Subjective Notes: Conditional Voluntary Interim History: Pt was seen in rounds today. Records and plans were reviewed. She has been stable and generally pleasant and cooperative. She appears to be doing somewhat better. No complaints or side effects. Eating and sleeping adequately. No ch anges were made today Medication Compliance: Yes Side effects from medications: No Review of Systems Review of Systems Dental issues Yes all other systems are reviewed and are negative Mental Status Exam Mental Status Exam Narrative: In today's visit she is alert, pleasant and interactive within her means. Soft- spoken speech. No eye contact. Affect is constricted. No acute signs of psychosis. No dangerous behaviors. Cognitively impaired. Judgment is impaired Diagnostics Vital Signs (24Hr): Vital Signs - 24 hr 05/27/22 18:00 Temperature 97.7 F Pulse Rate 73 Respiratory Rate 18 Blood Pressure 163/74 H Pulse Oximetry 93 Oxygen Delivery Method Room Air BMI result Body Mass Index 23.8 Labs 05/12/22 09:30 05/26/22 09:00 Labs: Laboratory Results - last 48 hr 05/26/22 09:00 Creatinine 1.21 Estim Creat Clear Calc 33.6 Estimated GFR 42 Imaging Radiology Impressions: ITS Impressions Chest CT 01/10/22 15:11 IMPRESSION: Bilateral small pulmonary nodules, left greater than right. Biapical pleural and parenchymal scarring. 1.1 x 1.4 cm heterogeneous or semisolid right apical nodule, question related to pleural and parenchymal scarring. 1.5 cm partially calcified left thyroid nodule. Based on patient age in size, this does not meet criteria for follow-up. Moderate coronary artery calcification. Fleischner guidelines were followed. Chest CT 04/01/22 14:44 IMPRESSION: *Unchanged semisolid 1.5 cm x 1.0 cm nodule within the apex of the right pulmonary lobe. Per the Fleischner Society 2017 revised guidelines, as clinically indicated recommend annual screening CT to demonstrate stability to demonstrate ultimate 5 year stability. *Unchanged small number of scattered solid pulmonary nodules ranging in size up to 6 mm diameter stable compared with 01/10/2022. *Moderate-marked diffuse coronary artery calcific atherosclerosis. *Partially visualized posttreatment related changes of the right breast. Head CT 04/18/22 09:11 IMPRESSION: No acute intracranial pathology. Chest X-Ray 05/09/22 19:28 IMPRESSION: No acute intrathoracic disease. Medications Medications Current Medications Acetaminophen (Acetaminophen 325 Mg Tablet) 650 mg PO Q6H PRN PRN Reason: Pain, Moderate (Pain Scale 4-6 Last Admin: 05/23/22 03:34 Dose: 650 mg Amlodipine Besylate (Amlodipine Besylate 10 Mg Tablet) 10 mg PO DAILY@1800 [facility]; Protocol Last Admin: 05/27/22 17:05 Dose: 10 mg Docusate Sodium (Docusate Sodium 100 Mg Capsule) 100 mg PO BID PRN PRN Reason: Constipation Last Admin: 05/03/22 10:39 Dose: 100 mg Guaifenesin (Guaifenesin 100 Mg/5 Ml Liquid) 5 ml PO Q4H PRN PRN Reason: Cough Hydrochlorothiazide (Hydrochlorothiazide 12.5 Mg Tablet) 12.5 mg PO DAILY [facility]; Protocol Last Admin: 05/28/22 08:53 Dose: 12.5 mg Ibuprofen (Ibuprofen 600 Mg Tablet) 600 mg PO Q8H PRN PRN Reason: pain not relieved by tylenol Last Admin: 05/08/22 17:25 Dose: 600 mg Insulin Human Lispro (Insulin Lispro 100 Unit/Ml 3 Ml Vial) 0 unit SUBCUT DAILY [facility]; Protocol Last Admin: 05/27/22 09:34 Dose: Not Given Lidocaine/Diphenhydr/Alum/Mg/Simeth (Mag&Al/Sim/Diphenhyd/Lidocaine 10 Ml Oral.Susp) 10 ml PO Q4H PRN; Protocol PRN Reason: Sore Throat Metformin HCl (Metformin Hcl 500 Mg Tablet) 500 mg PO BIDWM [facility] Last Admin: 05/28/22 08:53 Dose: 500 mg Olanzapine (Olanzapine 5 Mg Tablet) 5 mg PO DAILY@1800 [facility] Last Admin: 05/27/22 17:04 Dose: 5 mg Olanzapine (Olanzapine 10 Mg Vial) 5 mg IM BEDTIME PRN PRN Reason: refusal of PO Last Admin: 05/22/22 20:35 Dose: 5 mg Oxybutynin Chloride (Oxybutynin Chloride Er 5 Mg Tab.Er.24) 10 mg PO DAILY [facility] Last Admin: 05/28/22 08:53 Dose: 10 mg Trazodone HCl (Trazodone Hcl 50 Mg Tablet) 50 mg PO BEDTIME PRN PRN Reason: insomnia Last Admin: 05/26/22 20:30 Dose: 50 mg Allergies Allergies Allergy/AdvReac Type Severity Reaction Status Date / Time codeine Allergy Unknown Unknown Verified 12/15/21 18:29 sulfadiazine Allergy Unknown Unknown Verified 12/15/21 18:29 Assessment & Plan Assessment & Plan (1) Multifactorial dementia: Status: Acute Code(s): F03.90 - Unspecified dementia, unspecified severity, without behavioral disturbance, psychotic disturbance, mood disturbance, and anxiety Plan This is an 86 year old female with history of DM, breast cancer, dementia with behavioral disturbance, HTN, HLD, CKD3, pulmonary nodule initially brought to the ED in December after her who was her primary tractor mechanic apprentice and her house was found to be uninhabitable. [facility] where she had been getting treatment for psychosis and paranoia, guardianship and Farooq's order obtained, and had been doing fairly well until she was diagnosed with covid 19 on 05/03. At that time she became more lethargic. hospital course complicated further by hyperglycemia. Diabetes with hyperglycemia Hba1c in January was 9.2 but has not been on any diabetic medication. Blood sugar up to 400s today changed to diabetic diet started on SSI, will follow POCs to obtain 24 hour insulin needs and then will add long acting insulin toxic metabolic encephalopathy alert and oriented x2 - seems to be at baseline but still with generalized weak ness and decreased activity likely multifactorial from recent covid 19 infection, uncontrolled DM and dental infection Dental infection recommend augmentin x 10 days Covid 19 diagnosed 05/03 s/p remdesivir x 3 days cxr was negative at that time afebrile, no respiratory symptoms, no hypoxia at this time CKD3 creatinine stable HTN overall BP under adequate control continue HCTZ, norvasc Pulmonary nodules oncology following Mood continue management per psychiatric team 05/19 continue tx. 05/20/22 cont plan of care some improvement s/p covid 05/21/2022 Continue plan of care encourage ambulation 05/22/22 encourage ambulation cont medication see if we can get to dentist 05/23 continue current medications. 05/24 continue tx. Per . Mya Montgomery working on dental appointment. 05/25 continue tx. pending dental appointment. 05/26 continue tx. pending dental appointment. 05/27: Continue current regimen and plans/pending dental appointment 3/12: Continue current regimen and plans. Awaiting dental appointment/visit Reason for contiued inpatient stay Substantial Risk for: inability to function Time Spent With Patient Time: Total time managing care of this patient today ____ minutes.
[2022-05-28] MEDS: amLODIPine Besylate 10 MG TABLET PO (18:06)
[2022-05-28] MEDS: OLANZapine 5 MG TABLET PO (18:10)
--- NOTE | 2022-05-29 09:17 | P.PNPSI_ITS ---
Subjective Subjective Date of Service: 05/29/22 Reason For Visit: Mood Subjective Notes: Section 8 Interim History: Pt visible on the unit, ambulating with walker. Pt declined shower today, somewhat malodorous. Pt encouraged to take shower but states she had one re cently. Pt reports dental pain, asks for update on dentist. Pt denies SI/HI. Per nursing, no overt behavioral concerns, at times irritable but able to be redirected. No aggression towards self or others. Medication Compliance: Yes Side effects from medications: No Attending Groups: No Mental Status Exam Mental Status Exam Narrative: Appearance: wearing casual clothing, poor hygiene, ambulating with walker. Behavior: somewhat guarded Psychomotor: no agitation or retardation Speech: clear, normal rate/rhythm/volume, spontaneous TP: linear TC: no overt psychosis, asking for dentist for pain Mood: okay Affect: congruent, non labile SI: none HI: none AH/VH: none Delusions: none Insight/judgment: impaired x 2. Memory/ cognition: alert, oriented to place (knows this is [facility]), not situation, nor month nor date nor year. Pt with significant impairment in recall, executive function, visuospatial skills, language repetition and fluency. Fair attention. Diagnostics Vital Signs (24Hr): BMI result Body Mass Index 23.8 Labs 05/12/22 09:30 05/26/22 09:00 Imaging Radiology Impressions: ITS Impressions Chest CT 01/10/22 15:11 IMPRESSION: Bilateral small pulmonary nodules, left greater than right. Biapical pleural and parenchymal scarring. 1.1 x 1.4 cm heterogeneous or semisolid right apical nodule, question related to pleural and parenchymal scarring. 1.5 cm partially calcified left thyroid nodule. Based on patient age in size, this does not meet criteria for follow-up. Moderate coronary artery calcification. Fleischner guidelines were followed. Chest CT 04/01/22 14:44 IMPRESSION: *Unchanged semisolid 1.5 cm x 1.0 cm nodule within the apex of the right pulmonary lobe. Per the Fleischner Society 2017 revised guidelines, as clinically indicated recommend annual screening CT to demonstrate stability to demonstrate ultimate 5 year stability. *Unchanged small number of scattered solid pulmonary nodules ranging in size up to 6 mm diameter stable compared with 01/10/2022. *Moderate-marked diffuse coronary artery calcific atherosclerosis. *Partially visualized posttreatment related changes of the right breast. Head CT 04/18/22 09:11 IMPRESSION: No acute intracranial pathology. Chest X-Ray 05/09/22 19:28 IMPRESSION: No acute intrathoracic disease. Medications Medications Current Medications Acetaminophen (Acetaminophen 325 Mg Tablet) 650 mg PO Q6H PRN PRN Reason: Pain, Moderate (Pain Scale 4-6 Last Admin: 05/23/22 03:34 Dose: 650 mg Amlodipine Besylate (Amlodipine Besylate 10 Mg Tablet) 10 mg PO DAILY@1800 [facility]; Protocol Last Admin: 05/28/22 18:06 Dose: 10 mg Docusate Sodium (Docusate Sodium 100 Mg Capsule) 100 mg PO BID PRN PRN Reason: Constipation Last Admin: 05/03/22 10:39 Dose: 100 mg Guaifenesin (Guaifenesin 100 Mg/5 Ml Liquid) 5 ml PO Q4H PRN PRN Reason: Cough Hydrochlorothiazide (Hydrochlorothiazide 12.5 Mg Tablet) 12.5 mg PO DAILY [facility]; Protocol Last Admin: 05/28/22 08:53 Dose: 12.5 mg Ibuprofen (Ibuprofen 600 Mg Tablet) 600 mg PO Q8H PRN PRN Reason: pain not relieved by tylenol Last Admin: 05/08/22 17:25 Dose: 600 mg Insulin Human Lispro (Insulin Lispro 100 Unit/Ml 3 Ml Vial) 0 unit SUBCUT DAILY [facility]; Protocol Last Admin: 05/28/22 12:42 Dose: Not Given Lidocaine/Diphenhydr/Alum/Mg/Simeth (Mag&Al/Sim/Diphenhyd/Lidocaine 10 Ml Oral.Susp) 10 ml PO Q4H PRN; Protocol PRN Reason: Sore Throat Metformin HCl (Metformin Hcl 500 Mg Tablet) 500 mg PO BIDWM [facility] Last Admin: 05/28/22 18:07 Dose: 500 mg Olanzapine (Olanzapine 5 Mg Tablet) 5 mg PO DAILY@1800 [facility] Last Admin: 05/28/22 18:10 Dose: 5 mg Olanzapine (Olanzapine 10 Mg Vial) 5 mg IM BEDTIME PRN PRN Reason: refusal of PO Last Admin: 05/22/22 20:35 Dose: 5 mg Oxybutynin Chloride (Oxybutynin Chloride Er 5 Mg Tab.Er.24) 10 mg PO DAILY [facility] Last Admin: 05/28/22 08:53 Dose: 10 mg Trazodone HCl (Trazodone Hcl 50 Mg Tablet) 50 mg PO BEDTIME PRN PRN Reason: insomnia Last Admin: 05/26/22 20:30 Dose: 50 mg Allergies Allergies Allergy/AdvReac Type Severity Reaction Status Date / Time codeine Allergy Unknown Unknown Verified 12/15/21 18:29 sulfadiazine Allergy Unknown Unknown Verified 12/15/21 18:29 Assessment & Plan Assessment & Plan (1) Major neurocognitive disorder, due to multiple etiologies, with behavioral disturbance, severe: Status: Acute Code(s): F02.C18 - Dementia in other diseases classified elsewhere, severe, with other behavioral disturbance Plan This is an 86 year old female with history of DM, breast cancer, dementia with behavioral disturbance, HTN, HLD, CKD3, pulmonary nodule initially brought to the ED in December after her who was her primary apparatus engineering technologist and her house was found to be uninhabitable. She [facility] where she had been getting treatment for psychosis and paranoia, g mayte and Farooq's order obtained, and had been doing fairly well until she was diagnosed with covid 19 on 05/03. At that time she became more lethargic. hospital course complicated further by hyperglycemia. Diabetes with hyperglycemia Hba1c in January was 9.2 but has not been on any diabetic medication. Blood sugar up to 400s today changed to diabetic diet started on SSI, will follow POCs to obtain 24 hour insulin needs and then will add long acting insulin Covid 19 diagnosed 05/03 s/p remdesivir x 3 days cxr was negative at that time afebrile, no respiratory symptoms, no hypoxia at this time CKD3 creatinine stable HTN overall BP under adequate control continue HCTZ, norvasc Pulmonary nodules oncology following Mood continue management per psychiatric team 05/19 continue tx. 05/20/22 cont plan of care some improvement s/p covid 05/21/2022 Continue plan of care encourage ambulation 05/22/22 encourage ambulation cont medication see if we can get to dentist 05/23 continue current medications. 05/24 continue tx. Per . Mya Montgomery working on dental appointment. 05/25 continue tx. pending dental appointment. 05/26 continue tx. pending dental appointment. 05/27: Continue current regimen and plans/pending dental appointment 05/28: Continue current regimen and plans. Awaiting dental appointment/visit 05/29 continue current medications. pending detal appointment. Reason for contiued inpatient stay Substantial Risk for: inability to function Time Spent With Patient Time: Total time managing care of this patient today ____ minutes.
[2022-05-29 10:45] LABS: Glucose, Whole Blood 133 mg/dL (60-115)
[2022-05-29] MEDS: metFORMIN HCl 500 MG TABLET PO ×2 (11:12→17:36)
[2022-05-29] MEDS: hydroCHLOROthiazide 12.5 MG TABLET PO (11:12)
[2022-05-29 11:20] VITALS: BP 143/66; PULSE 73; RESP 18; TEMP 36.3; O2SAT 97
[2022-05-29 17:33] VITALS: BP 132/61; PULSE 77; TEMP 37.3; O2SAT 94
[2022-05-29] MEDS: amLODIPine Besylate 10 MG TABLET PO (17:36)
[2022-05-29] MEDS: OLANZapine 5 MG TABLET PO (17:36)
[2022-05-29 18:00] VITALS: BP 166/78; PULSE 67; RESP 16; TEMP 37.1; O2SAT 95
[2022-05-30 07:30] VITALS: BP 133/61; PULSE 62; RESP 94; TEMP 36.2; O2SAT 94
[2022-05-30 08:16] LABS: Glucose, Whole Blood 137 mg/dL (60-115)
[2022-05-30] MEDS: hydroCHLOROthiazide 12.5 MG TABLET PO (09:15)
[2022-05-30] MEDS: metFORMIN HCl 500 MG TABLET PO ×2 (09:15→17:32)
--- NOTE | 2022-05-30 12:35 | HO.PSYCHPN ---
Subjective Subjective Date of Service: 05/30/22 Reason For Visit: Mood Subjective Notes: Section 8 Interim History: Pt slept through the night per nursing. Pt reports feeling well, however, complaints of molar pain and difficulty eating. This field underwriter explained we are awaiting for confirmation from dental office to schedule the appointment that is being coordinated by our Dir. Mya Montgomery. Other than that, pt denies any other concerns. No behavioral concerns. Review of Systems Review of Systems Dental issues Yes all other systems are reviewed and are negative and Unobtainable due to mental status Constitutional: Reports no additional constitutional complaints, Denies chills and Denies fever(s) Eyes: Reports no additional eye complaints Reports system reviewed and no additional complaints, except as documented Cardiovascular: Reports no additional cardiovascular complaints, Denies chest pain and Denies dyspnea Respiratory: Reports no additional respiratory complaints, Denies cough and Denies dyspnea Gastrointestinal: Reports no additional gastrointestinal complaints Musculoskeletal: Reports no additional musculoskeletal complaints Skin/Breast: Reports system reviewed and no additional complaints, except as docu Reports system reviewed and no additional complaints, except as documented and Reports confusion (at times speaking randomly and changing subject) Psychiatric: Reports no additional psychiatric complaints, Reports as per HPI and Reports confusion (at times speaking randomly and changing subject) Endocrine: Reports no additional endocrine complaints Hematologic/Lymphatic: Reports no additional hematologic/lymphatic complaints Allergic/Immunologic: Reports no additional allergic/immunologic complaints Mental Status Exam Mental Status Exam Narrative: Appearance: wearing casual clothing, poor hygiene, ambulating with walker. Behavior: somewhat guarded Psychomotor: no agitation or retardation Speech: clear, normal rate/rhythm/volume, spontaneous TP: linear TC: no overt psychosis, asking for dentist for pain Mood: okay Affect: congruent, non labile SI: none HI: none AH/VH: none Delusions: none Insight/judgment: impaired x 2. Memory/ cognition: alert, oriented to place (knows this is [facility]), not situation, nor month nor date nor year. Pt with significant impairment in recall, executive function, visuospatial skills, language repetition and fluency. Fair attention. Diagnostics Vital Signs (24Hr): Vital Signs - 24 hr 05/29/22 17:33 05/29/22 18:00 05/30/22 07:30 Temperature 99.1 F 98.8 F 97.1 F Pulse Rate 77 67 62 Respiratory Rate 16 94 H Blood Pressure 132/61 166/78 H 133/61 Pulse Oximetry 94 95 94 Oxygen Delivery Method Room Air Room Air Room Air BMI result Body Mass Index 23.8 Labs 05/12/22 09:30 05/26/22 09:00 Labs: Laboratory Results - last 48 hr 05/29/22 05/30/22 10:42 08:13 POC Glucose 133 H 137 H Imaging Radiology Impressions: ITS Impressions Chest CT 01/10/22 15:11 IMPRESSION: Bilateral small pulmonary nodules, left greater than right. Biapical pleural and parenchymal scarring. 1.1 x 1.4 cm heterogeneous or semisolid right apical nodule, question related to pleural and parenchymal scarring. 1.5 cm partially calcified left thyroid nodule. Based on patient age in size, this does not meet criteria for follow-up. Moderate coronary artery calcification. Fleischner guidelines were followed. Chest CT 04/01/22 14:44 IMPRESSION: *Unchanged semisolid 1.5 cm x 1.0 cm nodule within the apex of the right pulmonary lobe. Per the Fleischner Society 2017 revised guidelines, as clinically indicated recommend annual screening CT to demonstrate stability to demonstrate ultimate 5 year stability. *Unchanged small number of scattered solid pulmonary nodules ranging in size up to 6 mm diameter stable compared with 01/10/2022. *Moderate-marked diffuse coronary artery calcific atherosclerosis. *Partially visualized posttreatment related changes of the right breast. Head CT 04/18/22 09:11 IMPRESSION: No acute intracranial pathology. Chest X-Ray 05/09/22 19:28 IMPRESSION: No acute intrathoracic disease. Medications Medications Current Medications Acetaminophen (Acetaminophen 325 Mg Tablet) 650 mg PO Q6H PRN PRN Reason: Pain, Moderate (Pain Scale 4-6 Last Admin: 05/23/22 03:34 Dose: 650 mg Amlodipine Besylate (Amlodipine Besylate 10 Mg Tablet) 10 mg PO DAILY@1800 [facility]; Protocol Last Admin: 05/29/22 17:36 Dose: 10 mg Docusate Sodium (Docusate Sodium 100 Mg Capsule) 100 mg PO BID PRN PRN Reason: Constipation Last Admin: 05/03/22 10:39 Dose: 100 mg Guaifenesin (Guaifenesin 100 Mg/5 Ml Liquid) 5 ml PO Q4H PRN PRN Reason: Cough Hydrochlorothiazide (Hydrochlorothiazide 12.5 Mg Tablet) 12.5 mg PO DAILY [facility]; Protocol Last Admin: 05/30/22 09:15 Dose: 12.5 mg Ibuprofen (Ibuprofen 600 Mg Tablet) 600 mg PO Q8H PRN PRN Reason: pain not relieved by tylenol Last Admin: 05/08/22 17:25 Dose: 600 mg Insulin Human Lispro (Insulin Lispro 100 Unit/Ml 3 Ml Vial) 0 unit SUBCUT DAILY [facility]; Protocol Last Admin: 05/30/22 09:16 Dose: Not Given Lidocaine/Diphenhydr/Alum/Mg/Simeth (Mag&Al/Sim/Diphenhyd/Lidocaine 10 Ml Oral.Susp) 10 ml PO Q4H PRN; Protocol PRN Reason: Sore Throat Metformin HCl (Metformin Hcl 500 Mg Tablet) 500 mg PO BIDWM [facility] Last Admin: 05/30/22 09:15 Dose: 500 mg Olanzapine (Olanzapine 5 Mg Tablet) 5 mg PO DAILY@1800 [facility] Last Admin: 05/29/22 17:36 Dose: 5 mg Olanzapine (Olanzapine 10 Mg Vial) 5 mg IM BEDTIME PRN PRN Reason: refusal of PO Last Admin: 05/22/22 20:35 Dose: 5 mg Oxybutynin Chloride (Oxybutynin Chloride Er 5 Mg Tab.Er.24) 10 mg PO DAILY [facility] Last Admin: 05/30/22 09:15 Dose: 10 mg Trazodone HCl (Trazodone Hcl 50 Mg Tablet) 50 mg PO BEDTIME PRN PRN Reason: insomnia Last Admin: 05/26/22 20:30 Dose: 50 mg Allergies Allergies Allergy/AdvReac Type Severity Reaction Status Date / Time codeine Allergy Unknown Unknown Verified 12/15/21 18:29 sulfadiazine Allergy Unknown Unknown Verified 12/15/21 18:29 Assessment & Plan Assessment & Plan (1) Major neurocognitive disorder, due to multiple etiologies, with behavioral disturbance, severe: Status: Acute Code(s): F02.C18 - Dementia in other diseases classified elsewhere, severe, with other behavioral disturbance Plan This is an 86 year old female with history of DM, breast cancer, dementia with behavioral disturbance, HTN, HLD, CKD3, pulmonary nodule initially brought to the ED in December after her who was her primary governor assembler and her house was found to be uninhabitable. She [facility] where she had been getting treatment for psychosis and paranoia, guardianship and Farooq's order obtained, and had been doing fairly well until she was diagnosed with covid 19 on 05/03. At that time she became more lethargic. hospital course complicated further by hyperglycemia. Diabetes with hyperglycemia Hba1c in January was 9.2 but has not been on any diabetic medication. Blood sugar up to 400s today changed to diabetic diet started on SSI, will follow POCs to obtain 24 hour insulin needs and then will add long acting insulin Covid 19 diagnosed 05/03 s/p remdesivir x 3 days cxr was negative at that time afebrile, no respiratory symptoms, no hypoxia at this time CKD3 creatinine stable HTN overall BP under adequate control continue HCTZ, norvasc Pulmonary nodules oncology following Mood continue management per psychiatric team 05/19 continue tx. 05/20/22 cont plan of care some improvement s/p covid 05/21/2022 Continue plan of care encourage ambulation 05/22/22 encourage ambulation cont medication see if we can get to dentist 05/23 continue current medications. 05/24 continue tx. Per dir. Mya Montgomery working on dental appointment. 05/25 continue tx. pending dental appointment. 05/26 continue tx. pending dental appointment. 05/27: Continue current regimen and plans/pending dental appointment 05/28: Continue current regimen and plans. Awaiting dental appointment/visit 05/29 continue current medications. pending detal appointment. 05/30 continue current tx. Reason for contiued inpatient stay Substantial Risk for: inability to function Time Spent With Patient Time: Total time managing care of this patient today ____ minutes.
[2022-05-30] MEDS: amLODIPine Besylate 10 MG TABLET PO (17:32)
[2022-05-30] MEDS: OLANZapine 5 MG TABLET PO (17:32)
[2022-05-31] MEDS: hydroCHLOROthiazide 12.5 MG TABLET PO (09:48)
[2022-05-31] MEDS: metFORMIN HCl 500 MG TABLET PO ×2 (09:48→17:32)
--- NOTE | 2022-05-31 12:21 | P.PNPSI_ITS ---
Subjective Subjective Date of Service: 05/31/22 Reason For Visit: Mood Subjective Notes: Section 7 and Section 8 Interim History: The nursing staff reported patient has been compliant with treatment, no changes in her mental status. On interview the patient denies new symptoms, she complaints of toothache, waiting for placement. Mental Status Exam Mental Status Exam Patient Appearance: Appropriate Patient Orientation: Person and Situation Level of Consciousness: Awake Patient Behavior: Guarded and Passive Mood Description: Withdrawn Affect Description: Constricted Patient Cognition Impaired: Yes Ability to Follow Directions: Good Speech Pattern: Clear Hallucinations: None Delusions: Not Present Thought Process: Distracted and Slowed Thinking Thought Content: positive for [place] and positive for Circumstantial Judgement: Poor Diagnostics Vital Signs (24Hr): BMI result Body Mass Index 23.8 Labs 05/12/22 09:30 05/26/22 09:00 Labs: Laboratory Results - last 48 hr 05/30/22 08:13 POC Glucose 137 H Imaging Radiology Impressions: ITS Impressions Chest CT 01/10/22 15:11 IMPRESSION: Bilateral small pulmonary nodules, left greater than right. Biapical pleural and parenchymal scarring. 1.1 x 1.4 cm heterogeneous or semisolid right apical nodule, question related to pleural and parenchymal scarring. 1.5 cm partially calcified left thyroid nodule. Based on patient age in size, this does not meet criteria for follow-up. Moderate coronary artery calcification. Fleischner guidelines were followed. Chest CT 04/01/22 14:44 IMPRESSION: *Unchanged semisolid 1.5 cm x 1.0 cm nodule within the apex of the right pulmonary lobe. Per the Fleischner Society 2017 revised guidelines, as clinically indicated recommend annual screening CT to demonstrate stability to demonstrate ultimate 5 year stability. *Unchanged small number of scattered solid pulmonary nodules ranging in size up to 6 mm diameter stable compared with 01/10/2022. *Moderate-marked diffuse coronary artery calcific atherosclerosis. *Partially visualized posttreatment related changes of the right breast. Head CT 04/18/22 09:11 IMPRESSION: No acute intracranial pathology. Chest X-Ray 05/09/22 19:28 IMPRESSION: No acute intrathoracic disease. Medications Medications Current Medications Acetaminophen (Acetaminophen 325 Mg Tablet) 650 mg PO Q6H PRN PRN Reason: Pain, Moderate (Pain Scale 4-6 Last Admin: 05/23/22 03:34 Dose: 650 mg Amlodipine Besylate (Amlodipine Besylate 10 Mg Tablet) 10 mg PO DAILY@1800 [facility]; Protocol Last Admin: 05/30/22 17:32 Dose: 10 mg Docusate Sodium (Docusate Sodium 100 Mg Capsule) 100 mg PO BID PRN PRN Reason: Constipation Last Admin: 05/03/22 10:39 Dose: 100 mg Guaifenesin (Guaifenesin 100 Mg/5 Ml Liquid) 5 ml PO Q4H PRN PRN Reason: Cough Hydrochlorothiazide (Hydrochlorothiazide 12.5 Mg Tablet) 12.5 mg PO DAILY [facility]; Protocol Last Admin: 05/31/22 09:48 Dose: 12.5 mg Ibuprofen (Ibuprofen 600 Mg Tablet) 600 mg PO Q8H PRN PRN Reason: pain not relieved by tylenol Last Admin: 05/08/22 17:25 Dose: 600 mg Insulin Human Lispro (Insulin Lispro 100 Unit/Ml 3 Ml Vial) 0 unit SUBCUT DAILY [facility]; Protocol Last Admin: 05/31/22 09:48 Dose: Not Given Lidocaine/Diphenhydr/Alum/Mg/Simeth (Mag&Al/Sim/Diphenhyd/Lidocaine 10 Ml Oral.Susp) 10 ml PO Q4H PRN; Protocol PRN Reason: Sore Throat Metformin HCl (Metformin Hcl 500 Mg Tablet) 500 mg PO BIDWM [facility] Last Admin: 05/31/22 09:48 Dose: 500 mg Olanzapine (Olanzapine 5 Mg Tablet) 5 mg PO DAILY@1800 [facility] Last Admin: 05/30/22 17:32 Dose: 5 mg Olanzapine (Olanzapine 10 Mg Vial) 5 mg IM BEDTIME PRN PRN Reason: refusal of PO Last Admin: 05/22/22 20:35 Dose: 5 mg Oxybutynin Chloride (Oxybutynin Chloride Er 5 Mg Tab.Er.24) 10 mg PO DAILY [facility] Last Admin: 05/31/22 09:47 Dose: 10 mg Trazodone HCl (Trazodone Hcl 50 Mg Tablet) 50 mg PO BEDTIME PRN PRN Reason: insomnia Last Admin: 05/26/22 20:30 Dose: 50 mg Allergies Allergies Allergy/AdvReac Type Severity Reaction Status Date / Time codeine Allergy Unknown Unknown Verified 12/15/21 18:29 sulfadiazine Allergy Unknown Unknown Verified 12/15/21 18:29 Assessment & Plan Assessment & Plan (1) Major neurocognitive disorder, due to multiple etiologies, with behavioral disturbance, severe: Status: Acute Code(s): F02.C18 - Dementia in other diseases classified elsewhere, severe, with other behavioral disturbance Plan This is an 86 year old female with history of DM, breast cancer, dementia with behavioral disturbance, HTN, HLD, CKD3, pulmonary nodule initially brought to the ED in December after her who was her primary general production manager and her house was found to be uninhabitable. She [facility] where she had been getting treatment for psychosis and paranoia, guardianship and Farooq's order obtained, and had been doing fairly well until she was diagnosed with covid 19 on 05/03. At that time she became more lethargic. hospital course complicated further by hyperglycemia. Diabetes with hyperglycemia Hba1c in January was 9.2 but has not been on any diabetic medication. Blood sugar up to 400s today changed to diabetic diet started on SSI, will follow POCs to obtain 24 hour insulin needs and then will add long acting insulin Covid 19 diagnosed 05/03 s/p remdesivir x 3 days cxr was negative at that time afebrile, no respiratory symptoms, no hypoxia at this time CKD3 creatinine stable HTN overall BP under adequate control continue HCTZ, norvasc Pulmonary nodules oncology following Mood continue management per psychiatric team Plan 1. Continue with same treatment. 2. Waiting for placement. 3. Arrangement for dental appointment now that she is off COVID-19 Reason for contiued inpatient stay Substantial Risk for: inability to function, rapid decompensation and med/psych decompensation Time Spent With Patient Time: Total time managing care of this patient today _20___ minutes.
[2022-05-31] MEDS: amLODIPine Besylate 10 MG TABLET PO (17:32)
[2022-05-31] MEDS: OLANZapine 5 MG TABLET PO (17:34)
[2022-05-31 18:00] VITALS: BP 127/69; PULSE 68; RESP 18; TEMP 36.7; O2SAT 95
[2022-06-01 06:00] VITALS: BP 147/67; PULSE 70; RESP 14; TEMP 37; O2SAT 95
[2022-06-01 07:00] VITALS: BMI 25.2
[2022-06-01] MEDS: metFORMIN HCl 500 MG TABLET PO ×2 (09:34→16:25)
[2022-06-01] MEDS: hydroCHLOROthiazide 12.5 MG TABLET PO (09:34)
--- NOTE | 2022-06-01 12:51 | HO.PSYCHPN ---
Subjective Subjective Date of Service: 06/01/22 Reason For Visit: Mood Subjective Notes: Conditional Voluntary Interim History: The nursing staff reported the patient had been compliant with treatment, she had been visible in the unit quiet complaining of pain in her tooth. The social professionals reported that she continues to find proper placement. On interview the patient denies new symptoms besides her toothache, contact administration to start again, a dentist appointment. Mental Status Exam Mental Status Exam Patient Appearance: Well Grooomed and Appropriate Patient Orientation: Person and Situation Level of Consciousness: Awake and Appropriate Patient Behavior: Guarded and Passive Mood Description: Calm and Withdrawn Affect Description: Constricted Patient Cognition Impaired: Yes Ability to Follow Directions: Good Speech Pattern: Clear Hallucinations: None Delusions: Paranoid Ideation Thought Process: Distracted and Evasive Thought Content: positive for [place], positive for Persever[place] and positive for Poverty of Content Judgement: Poor Diagnostics Vital Signs (24Hr): Vital Signs - 24 hr 05/31/22 18:00 06/01/22 06:00 Temperature 98.1 F 98.6 F Pulse Rate 68 70 Respiratory Rate 18 14 Blood Pressure 127/69 147/67 H Pulse Oximetry 95 95 Oxygen Delivery Method Room Air Room Air BMI result Body Mass Index 23.8 Labs 05/12/22 09:30 05/26/22 09:00 Imaging Radiology Impressions: ITS Impressions Chest CT 01/10/22 15:11 IMPRESSION: Bilateral small pulmonary nodules, left greater than right. Biapical pleural and parenchymal scarring. 1.1 x 1.4 cm heterogeneous or semisolid right apical nodule, question related to pleural and parenchymal scarring. 1.5 cm partially calcified left thyroid nodule. Based on patient age in size, this does not meet criteria for follow-up. Moderate coronary artery calcification. Fleischner guidelines were followed. Chest CT 04/01/22 14:44 IMPRESSION: *Unchanged semisolid 1.5 cm x 1.0 cm nodule within the apex of the right pulmonary lobe. Per the Fleischner Society 2017 revised guidelines, as clinically indicated recommend annual screening CT to demonstrate stability to demonstrate ultimate 5 year stability. *Unchanged small number of scattered solid pulmonary nodules ranging in size up to 6 mm diameter stable compared with 01/10/2022. *Moderate-marked diffuse coronary artery calcific atherosclerosis. *Partially visualized posttreatment related changes of the right breast. Head CT 04/18/22 09:11 IMPRESSION: No acute intracranial pathology. Chest X-Ray 05/09/22 19:28 IMPRESSION: No acute intrathoracic disease. Medications Medications Current Medications Acetaminophen (Acetaminophen 325 Mg Tablet) 650 mg PO Q6H PRN PRN Reason: Pain, Moderate (Pain Scale 4-6 Last Admin: 05/23/22 03:34 Dose: 650 mg Amlodipine Besylate (Amlodipine Besylate 10 Mg Tablet) 10 mg PO DAILY@1800 [facility]; Protocol Last Admin: 05/31/22 17:32 Dose: 10 mg Docusate Sodium (Docusate Sodium 100 Mg Capsule) 100 mg PO BID PRN PRN Reason: Constipation Last Admin: 05/03/22 10:39 Dose: 100 mg Guaifenesin (Guaifenesin 100 Mg/5 Ml Liquid) 5 ml PO Q4H PRN PRN Reason: Cough Hydrochlorothiazide (Hydrochlorothiazide 12.5 Mg Tablet) 12.5 mg PO DAILY [facility]; Protocol Last Admin: 06/01/22 09:34 Dose: 12.5 mg Ibuprofen (Ibuprofen 600 Mg Tablet) 600 mg PO Q8H PRN PRN Reason: pain not relieved by tylenol Last Admin: 05/08/22 17:25 Dose: 600 mg Insulin Human Lispro (Insulin Lispro 100 Unit/Ml 3 Ml Vial) 0 unit SUBCUT DAILY [facility]; Protocol Last Admin: 06/01/22 09:34 Dose: Not Given Lidocaine/Diphenhydr/Alum/Mg/Simeth (Mag&Al/Sim/Diphenhyd/Lidocaine 10 Ml Oral.Susp) 10 ml PO Q4H PRN; Protocol PRN Reason: Sore Throat Metformin HCl (Metformin Hcl 500 Mg Tablet) 500 mg PO BIDWM [facility] Last Admin: 06/01/22 09:34 Dose: 500 mg Olanzapine (Olanzapine 5 Mg Tablet) 5 mg PO DAILY@1800 [facility] Last Admin: 05/31/22 17:34 Dose: 5 mg Olanzapine (Olanzapine 10 Mg Vial) 5 mg IM BEDTIME PRN PRN Reason: refusal of PO Last Admin: 05/22/22 20:35 Dose: 5 mg Oxybutynin Chloride (Oxybutynin Chloride Er 5 Mg Tab.Er.24) 10 mg PO DAILY [facility] Last Admin: 06/01/22 09:34 Dose: 10 mg Trazodone HCl (Trazodone Hcl 50 Mg Tablet) 50 mg PO BEDTIME PRN PRN Reason: insomnia Last Admin: 05/26/22 20:30 Dose: 50 mg Allergies Allergies Allergy/AdvReac Type Severity Reaction Status Date / Time codeine Allergy Unknown Unknown Verified 12/15/21 18:29 sulfadiazine Allergy Unknown Unknown Verified 12/15/21 18:29 Assessment & Plan Assessment & Plan (1) Major neurocognitive disorder, due to multiple etiologies, with behavioral disturbance, severe: Status: Acute Code(s): F02.C18 - Dementia in other diseases classified elsewhere, severe, with other behavioral disturbance Plan This is an 86 year old female with history of DM, breast cancer, dementia with behavioral disturbance, HTN, HLD, CKD3, pulmonary nodule initially brought to the ED in December after her who was her primary detective lieutenant and her house was found to be uninhabitable. She [facility] where she had been getting treatment for psychosis and paranoia, guardianship and Farooq's order obtained, and had been doing fairly well until she was diagnosed with covid 19 on 05/03. At that time she became more lethargic. hospital course complicated further by hyperglycemia. Diabetes with hyperglycemia Hba1c in January was 9.2 but has not been on any diabetic medication. Blood sugar up to 400s today changed to diabetic diet started on SSI, will follow POCs to obtain 24 hour insulin needs and then will add long acting insulin Covid 19 diagnosed 05/03 s/p remdesivir x 3 days cxr was negative at that time afebrile, no respiratory symptoms, no hypoxia at this time CKD3 creatinine stable HTN overall BP under adequate control continue HCTZ, norvasc Pulmonary nodules oncology following Mood continue management per psychiatric team Plan 1. Continue with same treatment. 2. Waiting for placement. 3. Arrangement for dental appointment now that she is off COVID-19 Reason for contiued inpatient stay Substantial Risk for: inability to function, rapid decompensation and med/psych decompensation Time Spent With Patient Time: Total time managing care of this patient today _20___ minutes.
[2022-06-01 16:25] VITALS: BP 148/71; PULSE 71
[2022-06-01] MEDS: amLODIPine Besylate 10 MG TABLET PO (16:28)
[2022-06-01] MEDS: OLANZapine 5 MG TABLET PO (16:29)
[2022-06-01] MEDS: Acetaminophen 325 MG TABLET 650 MG PO (17:22)
[2022-06-01 18:00] VITALS: BP 134/73; PULSE 77; RESP 18; TEMP 36.6; O2SAT 95
[2022-06-02 07:52] LABS: Glucose, Whole Blood 137 mg/dL (60-115)
[2022-06-02 09:50] VITALS: BP 146/70; PULSE 66; RESP 18; TEMP 36.1; O2SAT 98
[2022-06-02] MEDS: metFORMIN HCl 500 MG TABLET PO ×2 (10:00→17:49)
[2022-06-02] MEDS: hydroCHLOROthiazide 12.5 MG TABLET PO (10:01)
--- NOTE | 2022-06-02 15:50 | P.PNPSI_ITS ---
Subjective Subjective Date of Service: 06/02/22 Reason For Visit: Mood Subjective Notes: Conditional Voluntary Interim History: The nursing staff reported the patient has been as usual compliant with treatment. On interview the patient was asking for her dentist appointment. Mental Status Exam Mental Status Exam Patient Appearance: Appropriate Patient Orientation: Person and Situation Level of Consciousness: Awake and Appropriate Patient Behavior: Guarded and Passive Mood Description: Withdrawn Affect Description: Calm Patient Cognition Impaired: Yes Ability to Follow Directions: Fair Speech Pattern: Clear Hallucinations: None Delusions: Not Present Thought Process: Evasive Thought Content: positive for [place] and positive for [place] Judgement: Fair Diagnostics Vital Signs (24Hr): Vital Signs - 24 hr 06/01/22 16:25 06/01/22 18:00 06/02/22 09:50 Temperature 98 F 97 F Pulse Rate 71 77 66 Respiratory Rate 18 18 Blood Pressure 148/71 H 134/73 146/70 H Pulse Oximetry 95 98 Oxygen Delivery Method Room Air Room Air BMI result Body Mass Index 25.2 Labs 05/12/22 09:30 05/26/22 09:00 Labs: Laboratory Results - last 48 hr 06/02/22 07:47 POC Glucose 137 H Imaging Radiology Impressions: ITS Impressions Chest CT 01/10/22 15:11 IMPRESSION: Bilateral small pulmonary nodules, left greater than right. Biapical pleural and parenchymal scarring. 1.1 x 1.4 cm heterogeneous or semisolid right apical nodule, question related to pleural and parenchymal scarring. 1.5 cm partially calcified left thyroid nodule. Based on patient age in size, this does not meet criteria for follow-up. Moderate coronary artery calcification. Fleischner guidelines were followed. Chest CT 04/01/22 14:44 IMPRESSION: *Unchanged semisolid 1.5 cm x 1.0 cm nodule within the apex of the right pulmonary lobe. Per the Fleischner Society 2017 revised guidelines, as clinically indicated recommend annual screening CT to demonstrate stability to demonstrate ultimate 5 year stability. *Unchanged small number of scattered solid pulmonary nodules ranging in size up to 6 mm diameter stable compared with 01/10/2022. *Moderate-marked diffuse coronary artery calcific atherosclerosis. *Partially visualized posttreatment related changes of the right breast. Head CT 04/18/22 09:11 IMPRESSION: No acute intracranial pathology. Chest X-Ray 05/09/22 19:28 IMPRESSION: No acute intrathoracic disease. Medications Medications Current Medications Acetaminophen (Acetaminophen 325 Mg Tablet) 650 mg PO Q6H PRN PRN Reason: Pain, Moderate (Pain Scale 4-6 Last Admin: 06/01/22 17:22 Dose: 650 mg Amlodipine Besylate (Amlodipine Besylate 10 Mg Tablet) 10 mg PO DAILY@1800 [facility]; Protocol Last Admin: 06/01/22 16:28 Dose: 10 mg Docusate Sodium (Docusate Sodium 100 Mg Capsule) 100 mg PO BID PRN PRN Reason: Constipation Last Admin: 05/03/22 10:39 Dose: 100 mg Guaifenesin (Guaifenesin 100 Mg/5 Ml Liquid) 5 ml PO Q4H PRN PRN Reason: Cough Hydrochlorothiazide (Hydrochlorothiazide 12.5 Mg Tablet) 12.5 mg PO DAILY [facility]; Protocol Last Admin: 06/02/22 10:01 Dose: 12.5 mg Ibuprofen (Ibuprofen 600 Mg Tablet) 600 mg PO Q8H PRN PRN Reason: pain not relieved by tylenol Last Admin: 05/08/22 17:25 Dose: 600 mg Insulin Human Lispro (Insulin Lispro 100 Unit/Ml 3 Ml Vial) 0 unit SUBCUT DAILY [facility]; Protocol Last Admin: 06/02/22 10:01 Dose: Not Given Lidocaine/Diphenhydr/Alum/Mg/Simeth (Mag&Al/Sim/Diphenhyd/Lidocaine 10 Ml Oral.Susp) 10 ml PO Q4H PRN; Protocol PRN Reason: Sore Throat Metformin HCl (Metformin Hcl 500 Mg Tablet) 500 mg PO BIDWM [facility] Last Admin: 06/02/22 10:00 Dose: 500 mg Olanzapine (Olanzapine 5 Mg Tablet) 5 mg PO DAILY@1800 [facility] Last Admin: 06/01/22 16:29 Dose: 5 mg Olanzapine (Olanzapine 10 Mg Vial) 5 mg IM BEDTIME PRN PRN Reason: refusal of PO Last Admin: 05/22/22 20:35 Dose: 5 mg Oxybutynin Chloride (Oxybutynin Chloride Er 5 Mg Tab.Er.24) 10 mg PO DAILY [facility] Last Admin: 06/02/22 10:00 Dose: 10 mg Trazodone HCl (Trazodone Hcl 50 Mg Tablet) 50 mg PO BEDTIME PRN PRN Reason: insomnia Last Admin: 05/26/22 20:30 Dose: 50 mg Allergies Allergies Allergy/AdvReac Type Severity Reaction Status Date / Time codeine Allergy Unknown Unknown Verified 12/15/21 18:29 sulfadiazine Allergy Unknown Unknown Verified 12/15/21 18:29 Assessment & Plan Assessment & Plan (1) Major neurocognitive disorder, due to multiple etiologies, with behavioral disturbance, severe: Status: Acute Code(s): F02.C18 - Dementia in other diseases classified elsewhere, severe, with other behavioral disturbance Plan This is an 86 year old female with history of DM, breast cancer, dementia with behavioral disturbance, HTN, HLD, CKD3, pulmonary nodule initially brought to the ED in December after her who was her primary car repairer and her house was found to be uninhabitable. She was [facility] where she had been getting treatment for psychosis and paranoia, guardianship and Farooq's order obtained, and had been doing fairly well until she was diagnosed with covid 19 on 05/03. At that time she became more lethargic. hospital course complicated further by hyperglycemia. Diabetes with hyperglycemia Hba1c in January was 9.2 but has not been on any diabetic medication. Blood sugar up to 400s today changed to diabetic diet started on SSI, will follow POCs to obtain 24 hour insulin needs and then will add long acting insulin Covid 19 diagnosed 05/03 s/p remdesivir x 3 days cxr was negative at that time afebrile, no respiratory symptoms, no hypoxia at this time CKD3 creatinine stable HTN overall BP under adequate control continue HCTZ, norvasc Pulmonary nodules oncology following Mood continue management per psychiatric team Plan 1. Continue with same treatment. 2. Waiting for placement. 3. Arrangement for dental appointment now that she is off COVID-19 Reason for contiued inpatient stay Substantial Risk for: inability to function, rapid decompensation and med/psych decompensation Time Spent With Patient Time: Total time managing care of this patient today _20___ minutes.
[2022-06-02 17:48] VITALS: BP 122/64; PULSE 71
[2022-06-02] MEDS: OLANZapine 5 MG TABLET PO (17:49)
[2022-06-02] MEDS: amLODIPine Besylate 10 MG TABLET PO (17:49)
[2022-06-02 18:00] VITALS: BP 114/53; PULSE 66; RESP 16; TEMP 36.1; O2SAT 97
[2022-06-03 08:11] LABS: Glucose, Whole Blood 155 mg/dL (60-115)
[2022-06-03 09:00] VITALS: BP 147/67; PULSE 70; TEMP 36.5; O2SAT 94
[2022-06-03] MEDS: metFORMIN HCl 500 MG TABLET PO ×2 (09:01→17:18)
[2022-06-03] MEDS: hydroCHLOROthiazide 12.5 MG TABLET PO (09:01)
--- NOTE | 2022-06-03 10:14 | HO.PSYCHPN ---
Subjective Subjective Date of Service: 06/03/22 Reason For Visit: Mood Subjective Notes: Conditional Voluntary Interim History: The nursing staff reported the patient slept 8 hours compliant with treatment. On interview the patient denies new symptoms waiting t for placement Mental Status Exam Mental Status Exam Patient Appearance: Well Grooomed and Appropriate Patient Orientation: Person and Situation Level of Consciousness: Awake and Appropriate Patient Behavior: Guarded and Passive Mood Description: Calm Affect Description: Constricted Patient Cognition Impaired: Yes Ability to Follow Directions: Good Speech Pattern: Clear Hallucinations: None Delusions: Not Present Thought Process: Linear Judgement: Fair Diagnostics Vital Signs (24Hr): Vital Signs - 24 hr 06/02/22 17:48 06/02/22 18:00 Temperature 97 F Pulse Rate 71 66 Respiratory Rate 16 Blood Pressure 122/64 114/53 L Pulse Oximetry 97 Oxygen Delivery Method Room Air BMI result Body Mass Index 25.2 Labs 05/12/22 09:30 05/26/22 09:00 Labs: Laboratory Results - last 48 hr 06/02/22 06/03/22 07:47 08:06 POC Glucose 137 H 155 H Imaging Radiology Impressions: ITS Impressions Chest CT 01/10/22 15:11 IMPRESSION: Bilateral small pulmonary nodules, left greater than right. Biapical pleural and parenchymal scarring. 1.1 x 1.4 cm heterogeneous or semisolid right apical nodule, question related to pleural and parenchymal scarring. 1.5 cm partially calcified left thyroid nodule. Based on patient age in size, this does not meet criteria for follow-up. Moderate coronary artery calcification. Fleischner guidelines were followed. Chest CT 04/01/22 14:44 IMPRESSION: *Unchanged semisolid 1.5 cm x 1.0 cm nodule within the apex of the right pulmonary lobe. Per the Fleischner Society 2017 revised guidelines, as clinically indicated recommend annual screening CT to demonstrate stability to demonstrate ultimate 5 year stability. *Unchanged small number of scattered solid pulmonary nodules ranging in size up to 6 mm diameter stable compared with 01/10/2022. *Moderate-marked diffuse coronary artery calcific atherosclerosis. *Partially visualized posttreatment related changes of the right breast. Head CT 04/18/22 09:11 IMPRESSION: No acute intracranial pathology. Chest X-Ray 05/09/22 19:28 IMPRESSION: No acute intrathoracic disease. Medications Medications Current Medications Acetaminophen (Acetaminophen 325 Mg Tablet) 650 mg PO Q6H PRN PRN Reason: Pain, Moderate (Pain Scale 4-6 Last Admin: 06/01/22 17:22 Dose: 650 mg Amlodipine Besylate (Amlodipine Besylate 10 Mg Tablet) 10 mg PO DAILY@1800 [facility]; Protocol Last Admin: 06/02/22 17:49 Dose: 10 mg Docusate Sodium (Docusate Sodium 100 Mg Capsule) 100 mg PO BID PRN PRN Reason: Constipation Last Admin: 05/03/22 10:39 Dose: 100 mg Guaifenesin (Guaifenesin 100 Mg/5 Ml Liquid) 5 ml PO Q4H PRN PRN Reason: Cough Hydrochlorothiazide (Hydrochlorothiazide 12.5 Mg Tablet) 12.5 mg PO DAILY [facility]; Protocol Last Admin: 06/03/22 09:01 Dose: 12.5 mg Ibuprofen (Ibuprofen 600 Mg Tablet) 600 mg PO Q8H PRN PRN Reason: pain not relieved by tylenol Last Admin: 05/08/22 17:25 Dose: 600 mg Insulin Human Lispro (Insulin Lispro 100 Unit/Ml 3 Ml Vial) 0 unit SUBCUT DAILY [facility]; Protocol Last Admin: 06/03/22 09:02 Dose: Not Given Lidocaine/Diphenhydr/Alum/Mg/Simeth (Mag&Al/Sim/Diphenhyd/Lidocaine 10 Ml Oral.Susp) 10 ml PO Q4H PRN; Protocol PRN Reason: Sore Throat Metformin HCl (Metformin Hcl 500 Mg Tablet) 500 mg PO BIDWM [facility] Last Admin: 06/03/22 09:01 Dose: 500 mg Olanzapine (Olanzapine 5 Mg Tablet) 5 mg PO DAILY@1800 [facility] Last Admin: 06/02/22 17:49 Dose: 5 mg Olanzapine (Olanzapine 10 Mg Vial) 5 mg IM BEDTIME PRN PRN Reason: refusal of PO Last Admin: 05/22/22 20:35 Dose: 5 mg Oxybutynin Chloride (Oxybutynin Chloride Er 5 Mg Tab.Er.24) 10 mg PO DAILY [facility] Last Admin: 06/03/22 09:01 Dose: 10 mg Trazodone HCl (Trazodone Hcl 50 Mg Tablet) 50 mg PO BEDTIME PRN PRN Reason: insomnia Last Admin: 05/26/22 20:30 Dose: 50 mg Allergies Allergies Allergy/AdvReac Type Severity Reaction Status Date / Time codeine Allergy Unknown Unknown Verified 12/15/21 18:29 sulfadiazine Allergy Unknown Unknown Verified 12/15/21 18:29 Assessment & Plan Assessment & Plan (1) Major neurocognitive disorder, due to multiple etiologies, with behavioral disturbance, severe: Status: Acute Code(s): F02.C18 - Dementia in other diseases classified elsewhere, severe, with other behavioral disturbance Plan This is an 86 year old female with history of DM, breast cancer, dementia with behavioral disturbance, HTN, HLD, CKD3, pulmonary nodule initially brought to the ED in December after her who was her primary cup setter lockstitch and her house was found to be uninhabitable. She [facility] where she had been getting treatment for psychosis and paranoia, guardianship and Farooq's order obtained, and had been doing fairly well until she was diagnosed with covid 19 on 05/03. At that time she became more lethargic. hospital course complicated further by hyperglycemia. Diabetes with hyperglycemia Hba1c in January was 9.2 but has not been on any diabetic medication. Blood sugar up to 400s today changed to diabetic diet started on SSI, will follow POCs to obtain 24 hour insulin needs and then will add long acting insulin Covid 19 diagnosed 05/03 s/p remdesivir x 3 days cxr was negative at that time afebrile, no respiratory symptoms, no hypoxia at this time CKD3 creatinine stable HTN overall BP under adequate control continue HCTZ, norvasc Pulmonary nodules oncology following Mood continue management per psychiatric team Plan 1. Continue with same treatment. 2. Waiting for placement. 3. Arrangement for dental appointment now that she is off COVID-19 Reason for contiued inpatient stay Substantial Risk for: inability to function, rapid decompensation and med/psych decompensation Time Spent With Patient Time: Total time managing care of this patient today __20__ minutes.
[2022-06-03 17:16] VITALS: BP 148/67; PULSE 67; RESP 18; TEMP 36.8; O2SAT 94
[2022-06-03] MEDS: OLANZapine 5 MG TABLET PO (17:17)
[2022-06-03] MEDS: amLODIPine Besylate 10 MG TABLET PO (17:18)
[2022-06-04 08:19] VITALS: BP 136/62; PULSE 81; RESP 18; TEMP 37; O2SAT 96
[2022-06-04] MEDS: metFORMIN HCl 500 MG TABLET PO ×2 (08:55→17:27)
[2022-06-04] MEDS: hydroCHLOROthiazide 12.5 MG TABLET PO (08:55)
[2022-06-04 11:34] LABS: Creatinine Clr Calc Pharmacy 37.7; Estimated Glomerular Filt Rate 48
--- NOTE | 2022-06-04 12:12 | HO.PSYCHPN ---
Subjective Subjective Date of Service: 06/04/22 Reason For Visit: Mood Subjective Notes: Conditional Voluntary Interim History: The nursing staff reported the patient slept all night she had been fully compliant with treatment but refused her insulin and she has always combative with the point of care. On interview the patient denies new symptoms, she had being stable so we will discontinue the point of care. Mental Status Exam Mental Status Exam Patient Appearance: Well Grooomed and Appropriate Patient Orientation: Person and Situation Level of Consciousness: Awake and Appropriate Patient Behavior: Guarded and Passive Mood Description: Withdrawn Affect Description: Calm Patient Cognition Impaired: Yes Ability to Follow Directions: Good Speech Pattern: Clear Hallucinations: None Delusions: Not Present Thought Process: Distracted Thought Content: positive for [place] and positive for Circumstantial Judgement: Fair Diagnostics Vital Signs (24Hr): Vital Signs - 24 hr 06/03/22 17:16 06/04/22 08:19 Temperature 98.3 F 98.6 F Pulse Rate 67 81 Respiratory Rate 18 18 Blood Pressure 148/67 H 136/62 Pulse Oximetry 94 96 Oxygen Delivery Method Room Air Room Air BMI result Body Mass Index 25.2 Labs 05/12/22 09:30 06/04/22 11:07 Labs: Laboratory Results - last 48 hr 06/03/22 06/04/22 08:06 11:07 Creatinine 1.08 Estim Creat Clear Calc 37.7 Estimated GFR 48 POC Glucose 155 H Imaging Radiology Impressions: ITS Impressions Chest CT 01/10/22 15:11 IMPRESSION: Bilateral small pulmonary nodules, left greater than right. Biapical pleural and parenchymal scarring. 1.1 x 1.4 cm heterogeneous or semisolid right apical nodule, question related to pleural and parenchymal scarring. 1.5 cm partially calcified left thyroid nodule. Based on patient age in size, this does not meet criteria for follow-up. Moderate coronary artery calcification. Fleischner guidelines were followed. Chest CT 04/01/22 14:44 IMPRESSION: *Unchanged semisolid 1.5 cm x 1.0 cm nodule within the apex of the right pulmonary lobe. Per the Fleischner Society 2017 revised guidelines, as clinically indicated recommend annual screening CT to demonstrate stability to demonstrate ultimate 5 year stability. *Unchanged small number of scattered solid pulmonary nodules ranging in size up to 6 mm diameter stable compared with 01/10/2022. *Moderate-marked diffuse coronary artery calcific atherosclerosis. *Partially visualized posttreatment related changes of the right breast. Head CT 04/18/22 09:11 IMPRESSION: No acute intracranial pathology. Chest X-Ray 05/09/22 19:28 IMPRESSION: No acute intrathoracic disease. Medications Medications Current Medications Acetaminophen (Acetaminophen 325 Mg Tablet) 650 mg PO Q6H PRN PRN Reason: Pain, Moderate (Pain Scale 4-6 Last Admin: 06/01/22 17:22 Dose: 650 mg Amlodipine Besylate (Amlodipine Besylate 10 Mg Tablet) 10 mg PO DAILY@1800 [facility]; Protocol Last Admin: 06/03/22 17:18 Dose: 10 mg Docusate Sodium (Docusate Sodium 100 Mg Capsule) 100 mg PO BID PRN PRN Reason: Constipation Last Admin: 05/03/22 10:39 Dose: 100 mg Guaifenesin (Guaifenesin 100 Mg/5 Ml Liquid) 5 ml PO Q4H PRN PRN Reason: Cough Hydrochlorothiazide (Hydrochlorothiazide 12.5 Mg Tablet) 12.5 mg PO DAILY [facility]; Protocol Last Admin: 06/04/22 08:55 Dose: 12.5 mg Ibuprofen (Ibuprofen 600 Mg Tablet) 600 mg PO Q8H PRN PRN Reason: pain not relieved by tylenol Last Admin: 05/08/22 17:25 Dose: 600 mg Lidocaine/Diphenhydr/Alum/Mg/Simeth (Mag&Al/Sim/Diphenhyd/Lidocaine 10 Ml Oral.Susp) 10 ml PO Q4H PRN; Protocol PRN Reason: Sore Throat Metformin HCl (Metformin Hcl 500 Mg Tablet) 500 mg PO BIDWM [facility] Last Admin: 06/04/22 08:55 Dose: 500 mg Olanzapine (Olanzapine 5 Mg Tablet) 5 mg PO DAILY@1800 [facility] Last Admin: 06/03/22 17:17 Dose: 5 mg Olanzapine (Olanzapine 10 Mg Vial) 5 mg IM BEDTIME PRN PRN Reason: refusal of PO Last Admin: 05/22/22 20:35 Dose: 5 mg Oxybutynin Chloride (Oxybutynin Chloride Er 5 Mg Tab.Er.24) 10 mg PO DAILY [facility] Last Admin: 06/04/22 08:55 Dose: 10 mg Trazodone HCl (Trazodone Hcl 50 Mg Tablet) 50 mg PO BEDTIME PRN PRN Reason: insomnia Last Admin: 05/26/22 20:30 Dose: 50 mg Allergies Allergies Allergy/AdvReac Type Severity Reaction Status Date / Time codeine Allergy Unknown Unknown Verified 12/15/21 18:29 sulfadiazine Allergy Unknown Unknown Verified 12/15/21 18:29 Assessment & Plan Assessment & Plan (1) Major neurocognitive disorder, due to multiple etiologies, with behavioral disturbance, severe: Status: Acute Code(s): F02.C18 - Dementia in other diseases classified elsewhere, severe, with other behavioral disturbance Plan This is an 86 year old female with history of DM, breast cancer, dementia with behavioral disturbance, HTN, HLD, CKD3, pulmonary nodule initially brought to the ED in December after her who was her primary director of cardiopulmonary services and her house was found to be uninhabitable. She [facility] where she had been getting treatment for psychosis and paranoia, guardianship and Farooq's order obtained, and had been doing fairly well until she was diagnosed with covid 19 on 05/03. At that time she became more lethargic. hospital course complicated further by hyperglycemia. Diabetes with hyperglycemia Hba1c in January was 9.2 but has not been on any diabetic medication. Blood sugar up to 400s today changed to diabetic diet started on SSI, will follow POCs to obtain 24 hour insulin needs and then will add long acting insulin Covid 19 diagnosed 05/03 s/p remdesivir x 3 days cxr was negative at that time afebrile, no respiratory symptoms, no hypoxia at this time CKD3 creatinine stable HTN overall BP under adequate control continue HCTZ, norvasc Pulmonary nodules oncology following Mood continue management per psychiatric team Plan 1. Continue with same treatment. 2. Waiting for placement. 3. Arrangement for dental appointment now that she is off COVID-19 Reason for contiued inpatient stay Substantial Risk for: inability to function, rapid decompensation and med/psych decompensation Time Spent With Patient Time: Total time managing care of this patient today _20___ minutes.
[2022-06-04 17:25] VITALS: BP 132/64; PULSE 69; RESP 18; TEMP 36.3; O2SAT 99
[2022-06-04] MEDS: amLODIPine Besylate 10 MG TABLET PO (17:27)
[2022-06-04] MEDS: OLANZapine 5 MG TABLET PO (17:27)
[2022-06-05 07:55] VITALS: BP 145/20; PULSE 74; RESP 18; TEMP 36.8; O2SAT 96
[2022-06-05] MEDS: hydroCHLOROthiazide 12.5 MG TABLET PO (08:16)
[2022-06-05] MEDS: metFORMIN HCl 500 MG TABLET PO ×2 (08:16→15:46)
--- NOTE | 2022-06-05 08:26 | PC.NURSE ---
Pt. A & O X 3. Balance is good and gait is steady with walker. Pt. consistenly uses walker appropriately. No bed alarm indicated.
--- NOTE | 2022-06-05 14:36 | P.PNPSI_ITS ---
Subjective Subjective Date of Service: 06/05/22 Reason For Visit: Mood Subjective Notes: Section 8 Interim History: Pt reports molar pain and difficulty eating. Dental appointment scheduled for tomorrow. Pt denies SI/HI. She is encouraged to shower as she is malodorous. No behavioral concerns. Medication Compliance: Yes Side effects from medications: No Review of Systems Review of Systems Dental issues Yes all other systems are reviewed and are negative and Unobtainable due to mental status Constitutional: Reports no additional constitutional complaints, Denies chills and Denies fever(s) Eyes: Reports no additional eye complaints Reports system reviewed and no additional complaints, except as documented Cardiovascular: Reports no additional cardiovascular complaints, Denies chest pain and Denies dyspnea Respiratory: Reports no additional respiratory complaints, Denies cough and Denies dyspnea Gastrointestinal: Reports no additional gastrointestinal complaints Musculoskeletal: Reports no additional musculoskeletal complaints Skin/Breast: Reports system reviewed and no additional complaints, except as docu Reports system reviewed and no additional complaints, except as documented and Reports confusion (at times speaking randomly and changing subject) Psychiatric: Reports no additional psychiatric complaints, Reports as per HPI and Reports confusion (at times speaking randomly and changing subject) Endocrine: Reports no additional endocrine complaints Hematologic/Lymphatic: Reports no additional hematologic/lymphatic complaints Allergic/Immunologic: Reports no additional allergic/immunologic complaints Mental Status Exam Mental Status Exam Narrative: Appearance: wearing casual clothing, poor hygiene, ambulating with walker. Behavior: somewhat guarded Psychomotor: no agitation or retardation Speech: clear, normal rate/rhythm/volume, spontaneous TP: linear TC: no overt psychosis, asking for dentist for pain Mood: okay Affect: congruent, non labile SI: none HI: none AH/VH: none Delusions: none Insight/judgment: impaired x 2. Memory/ cognition: alert, oriented to place (knows this is [facility]), not situation, nor month nor date nor year. Pt with significant impairment in recall, executive function, visuospatial skills, language repetition and fluency. Fair attention. Diagnostics Vital Signs (24Hr): Vital Signs - 24 hr 06/05/22 07:55 06/05/22 18:00 Temperature 98.2 F 97.8 F Pulse Rate 74 73 Respiratory Rate 18 17 Blood Pressure 145/20 H 132/62 Pulse Oximetry 96 95 Oxygen Delivery Method Room Air Room Air BMI result Body Mass Index 25.2 Labs 05/12/22 09:30 06/04/22 11:07 Labs: Laboratory Results - last 48 hr 06/04/22 11:07 Creatinine 1.08 Estim Creat Clear Calc 37.7 Estimated GFR 48 Imaging Radiology Impressions: ITS Impressions Chest CT 01/10/22 15:11 IMPRESSION: Bilateral small pulmonary nodules, left greater than right. Biapical pleural and parenchymal scarring. 1.1 x 1.4 cm heterogeneous or semisolid right apical nodule, question related to pleural and parenchymal scarring. 1.5 cm partially calcified left thyroid nodule. Based on patient age in size, this does not meet criteria for follow-up. Moderate coronary artery calcification. Fleischner guidelines were followed. Chest CT 04/01/22 14:44 IMPRESSION: *Unchanged semisolid 1.5 cm x 1.0 cm nodule within the apex of the right pulmonary lobe. Per the Fleischner Society 2017 revised guidelines, as clinically indicated recommend annual screening CT to demonstrate stability to demonstrate ultimate 5 year stability. *Unchanged small number of scattered solid pulmonary nodules ranging in size up to 6 mm diameter stable compared with 01/10/2022. *Moderate-marked diffuse coronary artery calcific atherosclerosis. *Partially visualized posttreatment related changes of the right breast. Head CT 04/18/22 09:11 IMPRESSION: No acute intracranial pathology. Chest X-Ray 05/09/22 19:28 IMPRESSION: No acute intrathoracic disease. Medications Medications Current Medications Acetaminophen (Acetaminophen 325 Mg Tablet) 650 mg PO Q6H PRN PRN Reason: Pain, Moderate (Pain Scale 4-6 Last Admin: 06/05/22 15:46 Dose: 650 mg Amlodipine Besylate (Amlodipine Besylate 10 Mg Tablet) 10 mg PO DAILY@1800 [facility]; Protocol Last Admin: 06/05/22 19:46 Dose: 10 mg Docusate Sodium (Docusate Sodium 100 Mg Capsule) 100 mg PO BID PRN PRN Reason: Constipation Last Admin: 05/03/22 10:39 Dose: 100 mg Guaifenesin (Guaifenesin 100 Mg/5 Ml Liquid) 5 ml PO Q4H PRN PRN Reason: Cough Hydrochlorothiazide (Hydrochlorothiazide 12.5 Mg Tablet) 12.5 mg PO DAILY [facility]; Protocol Last Admin: 06/05/22 08:16 Dose: 12.5 mg Ibuprofen (Ibuprofen 600 Mg Tablet) 600 mg PO Q8H PRN PRN Reason: pain not relieved by tylenol Last Admin: 05/08/22 17:25 Dose: 600 mg Lidocaine/Diphenhydr/Alum/Mg/Simeth (Mag&Al/Sim/Diphenhyd/Lidocaine 10 Ml Oral.Susp) 10 ml PO Q4H PRN; Protocol PRN Reason: Sore Throat Metformin HCl (Metformin Hcl 500 Mg Tablet) 500 mg PO BIDWM [facility] Last Admin: 06/05/22 15:46 Dose: 500 mg Olanzapine (Olanzapine 5 Mg Tablet) 5 mg PO DAILY@1800 [facility] Last Admin: 06/05/22 19:47 Dose: 5 mg Oxybutynin Chloride (Oxybutynin Chloride Er 5 Mg Tab.Er.24) 10 mg PO DAILY [facility] Last Admin: 06/05/22 08:16 Dose: 10 mg Trazodone HCl (Trazodone Hcl 50 Mg Tablet) 50 mg PO BEDTIME PRN PRN Reason: insomnia Last Admin: 05/26/22 20:30 Dose: 50 mg Allergies Allergies Allergy/AdvReac Type Severity Reaction Status Date / Time codeine Allergy Unknown Unknown Verified 12/15/21 18:29 sulfadiazine Allergy Unknown Unknown Verified 12/15/21 18:29 Assessment & Plan Assessment & Plan (1) Major neurocognitive disorder, due to multiple etiologies, with behavioral disturbance, severe: Status: Acute Code(s): F02.C18 - Dementia in other diseases classified elsewhere, severe, with other b ehavioral disturbance Plan This is an 86 year old female with history of DM, breast cancer, dementia with behavioral disturbance, HTN, HLD, CKD3, pulmonary nodule initially brought to the ED in December after her who was her primary tool trouble shooter and her house was found to be uninhabitable. She [facility] where she had been getting treatment for psychosis and paranoia, guardianship and Farooq's order obtained, and had been doing fairly well until she was diagnosed with covid 19 on 05/03. At that time she became more lethargic. hospital course complicated further by hyperglycemia. Diabetes with hyperglycemia Hba1c in January was 9.2 but has not been on any diabetic medication. Blood sugar up to 400s today changed to diabetic diet started on SSI, will follow POCs to obtain 24 hour insulin needs and then will add long acting insulin Covid 19 diagnosed 2/15 s/p remdesivir x 3 days cxr was negative at that time afebrile, no respiratory symptoms, no hypoxia at this time CKD3 creatinine stable HTN overall BP under adequate control continue HCTZ, norvasc Pulmonary nodules oncology following PSYCH 06/05 continue tx. Reason for contiued inpatient stay Substantial Risk for: inability to function Time Spent With Patient Time: Total time managing care of this patient today ____ minutes.
[2022-06-05] MEDS: Acetaminophen 325 MG TABLET 650 MG PO (15:46)
[2022-06-05 18:00] VITALS: BP 132/62; PULSE 73; RESP 17; TEMP 36.6; O2SAT 95
[2022-06-05] MEDS: amLODIPine Besylate 10 MG TABLET PO (19:46)
[2022-06-05] MEDS: OLANZapine 5 MG TABLET PO (19:47)
[2022-06-06 08:35] VITALS: BP 137/65; PULSE 67; RESP 18; TEMP 37; O2SAT 93
[2022-06-06] MEDS: hydroCHLOROthiazide 12.5 MG TABLET PO (09:23)
[2022-06-06] MEDS: metFORMIN HCl 500 MG TABLET PO ×2 (09:23→18:33)
--- NOTE | 2022-06-06 11:21 | PC.NURSE ---
Pt. left unit via WC on Section 21 at 09:40 accompanied by BETHANIE and for dental appointment. Returned to unit at 11:10 accompanied by same. Recommendation for referral to oral surgeon for extractions on non-viable teeth. Pt. not accepting of findings, believing they should have filled cavities.
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
[2022-06-06 18:00] VITALS: BP 119/71; PULSE 75; RESP 18; TEMP 36.8; O2SAT 95
[2022-06-06] MEDS: OLANZapine 5 MG TABLET PO (18:33)
[2022-06-06] MEDS: amLODIPine Besylate 10 MG TABLET PO (18:33)
--- NOTE | 2022-06-07 12:07 | HO.PSYCHPN ---
Subjective Subjective Date of Service: 06/07/22 Reason For Visit: Mood Subjective Notes: Section 7 and Section 8 Interim History: The nursing staff reported the patient had not have a shower in several weeks. She did not want to have a bed eventually since she had a very poor hygiene we needed to called security. Also her hair was matted with extremely filthy her. On interview the patient was angry that she had to have a shower but understood the need of safety in the unit. Mental Status Exam Mental Status Exam Patient Appearance: Appropriate Patient Orientation: Person and Situation Level of Consciousness: Restless Patient Behavior: Appropriate and Passive Mood Description: Withdrawn Affect Description: Constricted Patient Cognition Impaired: Yes Ability to Follow Directions: Good Speech Pattern: Clear Hallucinations: None Delusions: Paranoid Ideation Thought Process: Linear Thought Content: positive for [place] and positive for Perseveration Judgement: Fair Diagnostics Vital Signs (24Hr): Vital Signs - 24 hr 06/06/22 18:00 Temperature 98.3 F Pulse Rate 75 Respiratory Rate 18 Blood Pressure 119/71 Pulse Oximetry 95 Oxygen Delivery Method Room Air BMI result Body Mass Index 25.2 Labs 05/12/22 09:30 06/04/22 11:07 Imaging Radiology Impressions: ITS Impressions Chest CT 01/10/22 15:11 IMPRESSION: Bilateral small pulmonary nodules, left greater than right. Biapical pleural and parenchymal scarring. 1.1 x 1.4 cm heterogeneous or semisolid right apical nodule, question related to pleural and parenchymal scarring. 1.5 cm partially calcified left thyroid nodule. Based on patient age in size, this does not meet criteria for follow-up. Moderate coronary artery calcification. Fleischner guidelines were followed. Chest CT 04/01/22 14:44 IMPRESSION: *Unchanged semisolid 1.5 cm x 1.0 cm nodule within the apex of the right pulmonary lobe. Per the Fleischner Society 2017 revised guidelines, as clinically indicated recommend annual screening CT to demonstrate stability to demonstrate ultimate 5 year stability. *Unchanged small number of scattered solid pulmonary nodules ranging in size up to 6 mm diameter stable compared with 01/10/2022. *Moderate-marked diffuse coronary artery calcific atherosclerosis. *Partially visualized posttreatment related changes of the right breast. Head CT 04/18/22 09:11 IMPRESSION: No acute intracranial pathology. Chest X-Ray 05/09/22 19:28 IMPRESSION: No acute intrathoracic disease. Medications Medications Current Medications Acetaminophen (Acetaminophen 325 Mg Tablet) 650 mg PO Q6H PRN PRN Reason: Pain, Moderate (Pain Scale 4-6 Last Admin: 06/05/22 15:46 Dose: 650 mg Amlodipine Besylate (Amlodipine Besylate 10 Mg Tablet) 10 mg PO DAILY@1800 [facility]; Protocol Last Admin: 06/06/22 18:33 Dose: 10 mg Docusate Sodium (Docusate Sodium 100 Mg Capsule) 100 mg PO BID PRN PRN Reason: Constipation Last Admin: 05/03/22 10:39 Dose: 100 mg Guaifenesin (Guaifenesin 100 Mg/5 Ml Liquid) 5 ml PO Q4H PRN PRN Reason: Cough Hydrochlorothiazide (Hydrochlorothiazide 12.5 Mg Tablet) 12.5 mg PO DAILY [facility]; Protocol Last Admin: 06/07/22 11:46 Dose: Not Given Ibuprofen (Ibuprofen 600 Mg Tablet) 600 mg PO Q8H PRN PRN Reason: pain not relieved by tylenol Last Admin: 05/08/22 17:25 Dose: 600 mg Lidocaine/Diphenhydr/Alum/Mg/Simeth (Mag&Al/Sim/Diphenhyd/Lidocaine 10 Ml Oral.Susp) 10 ml PO Q4H PRN; Protocol PRN Reason: Sore Throat Metformin HCl (Metformin Hcl 500 Mg Tablet) 500 mg PO BIDWM [facility] Last Admin: 06/07/22 11:46 Dose: Not Given Olanzapine (Olanzapine 5 Mg Tablet) 5 mg PO DAILY@1800 [facility] Last Admin: 06/06/22 18:33 Dose: 5 mg Oxybutynin Chloride (Oxybutynin Chloride Er 5 Mg Tab.Er.24) 10 mg PO DAILY [facility] Last Admin: 06/07/22 11:46 Dose: Not Given Trazodone HCl (Trazodone Hcl 50 Mg Tablet) 50 mg PO BEDTIME PRN PRN Reason: insomnia Last Admin: 05/26/22 20:30 Dose: 50 mg Allergies Allergies Allergy/AdvReac Type Severity Reaction Status Date / Time codeine Allergy Unknown Unknown Verified 12/15/21 18:29 sulfadiazine Allergy Unknown Unknown Verified 12/15/21 18:29 Assessment & Plan Assessment & Plan (1) Breast cancer: Status: Acute Code(s): C50.919 - Malignant neoplasm of unspecified site of unspecified female breast Plan This is an 86 year old female with history of DM, breast cancer, dementia with behavioral disturbance, HTN, HLD, CKD3, pulmonary nodule initially brought to the ED in December after her who was her primary extrusion press supervisor and her house was found to be uninhabitable. She [facility] where she had been getting treatment for psychosis and paranoia, guardianship and Farooq's order obtained, and had been doing fairly well until she was diagnosed with covid 19 on 05/03. At that time she became more lethargic. hospital course complicated further by hyperglycemia. Diabetes with hyperglycemia Hba1c in January was 9.2 but has not been on any diabetic medication. Blood sugar up to 400s today changed to diabetic diet started on SSI, will follow POCs to obtain 24 hour insulin needs and then will add long acting insulin Covid 19 diagnosed 05/03 s/p remdesivir x 3 days cxr was negative at that time afebrile, no respiratory symptoms, no hypoxia at this time CKD3 creatinine stable HTN overall BP under adequate control continue HCTZ, norvasc Pulmonary nodules oncology following PSYCH 06/05 continue tx. Reason for contiued inpatient stay Substantial Risk for: inability to function, rapid decompensation and med/psych decompensation Time Spent With Patient Time: Total time managing care of this patient today __20__ minutes.
[2022-06-07] MEDS: metFORMIN HCl 500 MG TABLET PO (17:13)
[2022-06-07] MEDS: OLANZapine 5 MG TABLET PO (17:13)
[2022-06-07] MEDS: amLODIPine Besylate 10 MG TABLET PO (17:14)
[2022-06-08] MEDS: hydroCHLOROthiazide 12.5 MG TABLET PO (12:10)
[2022-06-08] MEDS: metFORMIN HCl 500 MG TABLET PO ×2 (12:10→17:14)
--- NOTE | 2022-06-08 15:22 | HO.PSYCHPN ---
Subjective Subjective Date of Service: 06/08/22 Reason For Visit: Mood Subjective Notes: Section 7 and Section 8 Interim History: Yesterday the patient had a her CT and shower against her will since she was extremely dirty. On interview the patient denies new symptoms she wants to have now on after only assessment. The social work manager reported that she had been referred to [facility] and we will no pretty soon if she could get placement. Mental Status Exam Mental Status Exam Patient Appearance: Appropriate Patient Orientation: Person and Situation Level of Consciousness: Awake and Appropriate Patient Behavior: Guarded and Passive Mood Description: Calm Affect Description: Constricted Patient Cognition Impaired: Yes Ability to Follow Directions: Good Speech Pattern: Clear Hallucinations: None Delusions: Paranoid Ideation Thought Process: Distracted Thought Content: positive for [place] and positive for Circumstantial Judgement: Poor Diagnostics Vital Signs (24Hr): BMI result Body Mass Index 25.2 Labs 05/12/22 09:30 06/04/22 11:07 Imaging Radiology Impressions: ITS Impressions Chest CT 01/10/22 15:11 IMPRESSION: Bilateral small pulmonary nodules, left greater than right. Biapical pleural and parenchymal scarring. 1.1 x 1.4 cm heterogeneous or semisolid right apical nodule, question related to pleural and parenchymal scarring. 1.5 cm partially calcified left thyroid nodule. Based on patient age in size, this does not meet criteria for follow-up. Moderate coronary artery calcification. Fleischner guidelines were followed. Chest CT 04/01/22 14:44 IMPRESSION: *Unchanged semisolid 1.5 cm x 1.0 cm nodule within the apex of the right pulmonary lobe. Per the Fleischner Society 2017 revised guidelines, as clinically indicated recommend annual screening CT to demonstrate stability to demonstrate ultimate 5 year stability. *Unchanged small number of scattered solid pulmonary nodules ranging in size up to 6 mm diameter stable compared with 01/10/2022. *Moderate-marked diffuse coronary artery calcific atherosclerosis. *Partially visualized posttreatment related changes of the right breast. Head CT 04/18/22 09:11 IMPRESSION: No acute intracranial pathology. Chest X-Ray 05/09/22 19:28 IMPRESSION: No acute intrathoracic disease. Medications Medications Current Medications Acetaminophen (Acetaminophen 325 Mg Tablet) 650 mg PO Q6H PRN PRN Reason: Pain, Moderate (Pain Scale 4-6 Last Admin: 06/05/22 15:46 Dose: 650 mg Amlodipine Besylate (Amlodipine Besylate 10 Mg Tablet) 10 mg PO DAILY@1800 [facility]; Protocol Last Admin: 06/07/22 17:14 Dose: 10 mg Docusate Sodium (Docusate Sodium 100 Mg Capsule) 100 mg PO BID PRN PRN Reason: Constipation Last Admin: 05/03/22 10:39 Dose: 100 mg Guaifenesin (Guaifenesin 100 Mg/5 Ml Liquid) 5 ml PO Q4H PRN PRN Reason: Cough Hydrochlorothiazide (Hydrochlorothiazide 12.5 Mg Tablet) 12.5 mg PO DAILY [facility]; Protocol Last Admin: 06/08/22 12:10 Dose: 12.5 mg Ibuprofen (Ibuprofen 600 Mg Tablet) 600 mg PO Q8H PRN PRN Reason: pain not relieved by tylenol Last Admin: 05/08/22 17:25 Dose: 600 mg Lidocaine/Diphenhydr/Alum/Mg/Simeth (Mag&Al/Sim/Diphenhyd/Lidocaine 10 Ml Oral.Susp) 10 ml PO Q4H PRN; Protocol PRN Reason: Sore Throat Metformin HCl (Metformin Hcl 500 Mg Tablet) 500 mg PO BIDWM [facility] Last Admin: 06/08/22 12:10 Dose: 500 mg Olanzapine (Olanzapine 5 Mg Tablet) 5 mg PO DAILY@1800 [facility] Last Admin: 06/07/22 17:13 Dose: 5 mg Oxybutynin Chloride (Oxybutynin Chloride Er 5 Mg Tab.Er.24) 10 mg PO DAILY [facility] Last Admin: 06/08/22 12:10 Dose: 10 mg Trazodone HCl (Trazodone Hcl 50 Mg Tablet) 50 mg PO BEDTIME PRN PRN Reason: insomnia Last Admin: 05/26/22 20:30 Dose: 50 mg Allergies Allergies Allergy/AdvReac Type Severity Reaction Status Date / Time codeine Allergy Unknown Unknown Verified 12/15/21 18:29 sulfadiazine Allergy Unknown Unknown Verified 12/15/21 18:29 Assessment & Plan Assessment & Plan (1) Breast cancer: Status: Acute Code(s): C50.919 - Malignant neoplasm of unspecified site of unspecified female breast Plan This is an 86 year old female with history of DM, breast cancer, dementia with behavioral disturbance, HTN, HLD, CKD3, pulmonary nodule initially brought to the ED in December after her who was her primary glass cutter and her house was found to be uninhabitable. She [facility] where she had been getting treatment for psychosis and paranoia, guardianship and Farooq's order obtained, and had been doing fairly well until she was diagnosed with covid 19 on 05/03. At that time she became more lethargic. hospital course complicated further by hyperglycemia. Diabetes with hyperglycemia Hba1c in January was 9.2 but has not been on any diabetic medication. Blood sugar up to 400s today changed to diabetic diet started on SSI, will follow POCs to obtain 24 hour insulin needs and then will add long acting insulin Covid 19 diagnosed 05/03 s/p remdesivir x 3 days cxr was negative at that time afebrile, no respiratory symptoms, no hypoxia at this time CKD3 creatinine stable HTN overall BP under adequate control continue HCTZ, norvasc Pulmonary nodules oncology following PSYCH 06/05 continue tx. Reason for contiued inpatient stay Substantial Risk for: inability to function, rapid decompensation and med/psych decompensation Time Spent With Patient Time: Total time managing care of this patient today __20__ minutes.
[2022-06-08] MEDS: amLODIPine Besylate 10 MG TABLET PO (17:14)
[2022-06-08] MEDS: OLANZapine 5 MG TABLET PO (17:14)
[2022-06-08 18:00] VITALS: BP 131/65; PULSE 72; RESP 18; TEMP 36.7; O2SAT 95
[2022-06-09 11:30] VITALS: BP 137/68; PULSE 73; RESP 15; TEMP 36.9; O2SAT 94
[2022-06-09] MEDS: metFORMIN HCl 500 MG TABLET PO ×2 (13:25→17:56)
[2022-06-09] MEDS: hydroCHLOROthiazide 12.5 MG TABLET PO (13:25)
[2022-06-09] MEDS: amLODIPine Besylate 10 MG TABLET PO (17:56)
[2022-06-09] MEDS: OLANZapine 5 MG TABLET PO (17:56)
--- NOTE | 2022-06-09 20:42 | HO.PSYCHPN ---
Subjective Subjective Date of Service: 06/09/22 Reason For Visit: Mood Subjective Notes: Conditional Voluntary Interim History: Pt with improved hygiene. She slept through the night. She is eating well. she has been visible on the unit. Pt reports doing fine. She denies physical concerns but asks this bond underwriter to get her a tooth brush. She denies SI/HI. No behavioral concerns. pt taking medications as prescribed. Medication Compliance: Yes Side effects from medications: No Attending Groups: No Review of Systems Review of Systems Dental issues Yes all other systems are reviewed and are negative and Unobtainable due to mental status Constitutional: Reports no additional constitutional complaints, Denies chills and Denies fever(s) Eyes: Reports no additional eye complaints Reports system reviewed and no additional complaints, except as documented Cardiovascular: Reports no additional cardiovascular complaints, Denies chest pain and Denies dyspnea Respiratory: Reports no additional respiratory complaints, Denies cough and Denies dyspnea Gastrointestinal: Reports no additional gastrointestinal complaints Musculoskeletal: Reports no additional musculoskeletal complaints Skin/Breast: Reports system reviewed and no additional complaints, except as docu Reports system reviewed and no additional complaints, except as documented and Reports confusion (at times speaking randomly and changing subject) Psychiatric: Reports no additional psychiatric complaints, Reports as per HPI and Reports confusion (at times speaking randomly and changing subject) Endocrine: Reports no additional endocrine complaints Hematologic/Lymphatic: Reports no additional hematologic/lymphatic complaints Allergic/Immunologic: Reports no additional allergic/immunologic complaints Mental Status Exam Mental Status Exam Narrative: Appearance: wearing casual clothing, poor hygiene, ambulating with walker. Behavior: somewhat guarded Psychomotor: no agitation or retardation Speech: clear, normal rate/rhythm/volume, spontaneous TP: linear TC: no overt psychosis, asking for dentist for pain Mood: okay Affect: congruent, non labile SI: none HI: none AH/VH: none Delusions: none Insight/judgment: impaired x 2. Memory/ cognition: alert, oriented to place (knows this is [facility]), not situation, nor month nor date nor year. Pt with significant impairment in recall, executive function, visuospatial skills, language repetition and fluency. Fair attention. Diagnostics Vital Signs (24Hr): Vital Signs - 24 hr 06/09/22 11:30 Temperature 98.4 F Pulse Rate 73 Respiratory Rate 15 Blood Pressure 137/68 Pulse Oximetry 94 Oxygen Delivery Method Room Air BMI result Body Mass Index 25.2 Labs 05/12/22 09:30 06/04/22 11:07 Imaging Radiology Impressions: ITS Impressions Chest CT 01/10/22 15:11 IMPRESSION: Bilateral small pulmonary nodules, left greater than right. Biapical pleural and parenchymal scarring. 1.1 x 1.4 cm heterogeneous or semisolid right apical nodule, question related to pleural and parenchymal scarring. 1.5 cm partially calcified left thyroid nodule. Based on patient age in size, this does not meet criteria for follow-up. Moderate coronary artery calcification. Fleischner guidelines were followed. Chest CT 04/01/22 14:44 IMPRESSION: *Unchanged semisolid 1.5 cm x 1.0 cm nodule within the apex of the right pulmonary lobe. Per the Fleischner Society 2017 revised guidelines, as clinically indicated recommend annual screening CT to demonstrate stability to demonstrate ultimate 5 year stability. *Unchanged small number of scattered solid pulmonary nodules ranging in size up to 6 mm diameter stable compared with 01/10/2022. *Moderate-marked diffuse coronary artery calcific atherosclerosis. *Partially visualized posttreatment related changes of the right breast. Head CT 04/18/22 09:11 IMPRESSION: No acute intracranial pathology. Chest X-Ray 05/09/22 19:28 IMPRESSION: No acute intrathoracic disease. Medications Medications Current Medications Acetaminophen (Acetaminophen 325 Mg Tablet) 650 mg PO Q6H PRN PRN Reason: Pain, Moderate (Pain Scale 4-6 Last Admin: 06/05/22 15:46 Dose: 650 mg Amlodipine Besylate (Amlodipine Besylate 10 Mg Tablet) 10 mg PO DAILY@1800 [facility]; Protocol Last Admin: 06/09/22 17:56 Dose: 10 mg Docusate Sodium (Docusate Sodium 100 Mg Capsule) 100 mg PO BID PRN PRN Reason: Constipation Last Admin: 05/03/22 10:39 Dose: 100 mg Guaifenesin (Guaifenesin 100 Mg/5 Ml Liquid) 5 ml PO Q4H PRN PRN Reason: Cough Hydrochlorothiazide (Hydrochlorothiazide 12.5 Mg Tablet) 12.5 mg PO DAILY [facility]; Protocol Last Admin: 06/09/22 13:25 Dose: 12.5 mg Ibuprofen (Ibuprofen 600 Mg Tablet) 600 mg PO Q8H PRN PRN Reason: pain not relieved by tylenol Last Admin: 05/08/22 17:25 Dose: 600 mg Lidocaine/Diphenhydr/Alum/Mg/Simeth (Mag&Al/Sim/Diphenhyd/Lidocaine 10 Ml Oral.Susp) 10 ml PO Q4H PRN; Protocol PRN Reason: Sore Throat Metformin HCl (Metformin Hcl 500 Mg Tablet) 500 mg PO BIDWM [facility] Last Admin: 06/09/22 17:56 Dose: 500 mg Olanzapine (Olanzapine 5 Mg Tablet) 5 mg PO DAILY@1800 [facility] Last Admin: 06/09/22 17:56 Dose: 5 mg Oxybutynin Chloride (Oxybutynin Chloride Er 5 Mg Tab.Er.24) 10 mg PO DAILY [facility] Last Admin: 06/09/22 13:25 Dose: 10 mg Trazodone HCl (Trazodone Hcl 50 Mg Tablet) 50 mg PO BEDTIME PRN PRN Reason: insomnia Last Admin: 05/26/22 20:30 Dose: 50 mg Allergies Allergies Allergy/AdvReac Type Severity Reaction Status Date / Time codeine Allergy Unknown Unknown Verified 12/15/21 18:29 sulfadiazine Allergy Unknown Unknown Verified 12/15/21 18:29 Assessment & Plan Assessment & Plan (1) Breast cancer: Status: Acute Code(s): C50.919 - Malignant neoplasm of unspecified site of unspecified female breast Plan This is an 86 year old female with history of DM, breast cancer, dementia with behavioral disturbance, HTN, HLD, CKD3, pulmonary nodule initially brought to the ED in December after her who was her primary armorer technician and pt living in unlivable conditions. PSYCH 06/09 continue tx. Reason for contiued inpatient stay Substantial Risk for: inability to function Time Spent With Patient Time: Total time managing care of this patient today ____ minutes.
[2022-06-10 07:30] VITALS: BP 133/74; PULSE 67; RESP 16; O2SAT 97
[2022-06-10] MEDS: metFORMIN HCl 500 MG TABLET PO ×2 (08:47→17:20)
[2022-06-10] MEDS: hydroCHLOROthiazide 12.5 MG TABLET PO (08:47)
--- NOTE | 2022-06-10 10:30 | P.PNPSI_ITS ---
Subjective Subjective Date of Service: 06/10/22 Reason For Visit: Mood Interim History: Team reports some irritability as pt participated in a shower, hair wash recently. Resting when seen, awakens easily, no distress sx present. Later in the a.m. pt in milieu, at the table, appears to be reading/writing and very engaged in this activity but is attentive to milieu activity and peers. Medication Compliance: Yes Side effects from medications: No Attending Groups: Yes Review of Systems Acute medical concerns: No Medical Review of Systems: unchanged Mental Status Exam Mental Status Exam Patient Appearance: Appropriate Patient Orientation: Person Level of Consciousness: Alert Patient Behavior: Good Eye Contact Mood Description: Labile Affect Description: Labile Patient Cognition Impaired: Yes Ability to Follow Directions: Fair Speech Pattern: Spontaneous Speech Memory Description: Remote Impaired and Episodic Impaired Hallucinations: None Delusions: Not Present Thought Process: Distracted, Rumination and Slowed Thinking Thought Content: positive for [place], positive for Circumstantial and positive for Perseveration Depressive Symptoms: Increased Anxiety Judgement: Poor Diagnostics Vital Signs (24Hr): Vital Signs - 24 hr 06/09/22 11:30 06/10/22 07:30 Temperature 98.4 F Pulse Rate 73 67 Respiratory Rate 15 16 Blood Pressure 137/68 133/74 Pulse Oximetry 94 97 Oxygen Delivery Method Room Air Room Air BMI result Body Mass Index 25.2 Labs 05/12/22 09:30 06/04/22 11:07 Imaging Radiology Impressions: ITS Impressions Chest CT 01/10/22 15:11 IMPRESSION: Bilateral small pulmonary nodules, left greater than right. Biapical pleural and parenchymal scarring. 1.1 x 1.4 cm heterogeneous or semisolid right apical nodule, question related to pleural and parenchymal scarring. 1.5 cm partially calcified left thyroid nodule. Based on patient age in size, this does not meet criteria for follow-up. Moderate coronary artery calcification. Fleischner guidelines were followed. Chest CT 04/01/22 14:44 IMPRESSION: *Unchanged semisolid 1.5 cm x 1.0 cm nodule within the apex of the right pulmonary lobe. Per the Fleischner Society 2017 revised guidelines, as clinically indicated recommend annual screening CT to demonstrate stability to demonstrate ultimate 5 year stability. *Unchanged small number of scattered solid pulmonary nodules ranging in size up to 6 mm diameter stable compared with 01/10/2022. *Moderate-marked diffuse coronary artery calcific atherosclerosis. *Partially visualized posttreatment related changes of the right breast. Head CT 04/18/22 09:11 IMPRESSION: No acute intracranial pathology. Chest X-Ray 05/09/22 19:28 IMPRESSION: No acute intrathoracic disease. Medications Medications Current Medications Acetaminophen (Acetaminophen 325 Mg Tablet) 650 mg PO Q6H PRN PRN Reason: Pain, Moderate (Pain Scale 4-6 Last Admin: 06/05/22 15:46 Dose: 650 mg Amlodipine Besylate (Amlodipine Besylate 10 Mg Tablet) 10 mg PO DAILY@1800 [facility]; Protocol Last Admin: 06/09/22 17:56 Dose: 10 mg Docusate Sodium (Docusate Sodium 100 Mg Capsule) 100 mg PO BID PRN PRN Reason: Constipation Last Admin: 05/03/22 10:39 Dose: 100 mg Guaifenesin (Guaifenesin 100 Mg/5 Ml Liquid) 5 ml PO Q4H PRN PRN Reason: Cough Hydrochlorothiazide (Hydrochlorothiazide 12.5 Mg Tablet) 12.5 mg PO DAILY [facility]; Protocol Last Admin: 06/10/22 08:47 Dose: 12.5 mg Ibuprofen (Ibuprofen 600 Mg Tablet) 600 mg PO Q8H PRN PRN Reason: pain not relieved by tylenol Last Admin: 05/08/22 17:25 Dose: 600 mg Lidocaine/Diphenhydr/Alum/Mg/Simeth (Mag&Al/Sim/Diphenhyd/Lidocaine 10 Ml Oral.Susp) 10 ml PO Q4H PRN; Protocol PRN Reason: Sore Throat Metformin HCl (Metformin Hcl 500 Mg Tablet) 500 mg PO BIDWM [facility] Last Admin: 06/10/22 08:47 Dose: 500 mg Olanzapine (Olanzapine 5 Mg Tablet) 5 mg PO DAILY@1800 [facility] Last Admin: 06/09/22 17:56 Dose: 5 mg Oxybutynin Chloride (Oxybutynin Chloride Er 5 Mg Tab.Er.24) 10 mg PO DAILY [facility] Last Admin: 06/10/22 08:47 Dose: 10 mg Trazodone HCl (Trazodone Hcl 50 Mg Tablet) 50 mg PO BEDTIME PRN PRN Reason: insomnia Last Admin: 05/26/22 20:30 Dose: 50 mg Allergies Allergies Allergy/AdvReac Type Severity Reaction Status Date / Time codeine Allergy Unknown Unknown Verified 12/15/21 18:29 sulfadiazine Allergy Unknown Unknown Verified 12/15/21 18:29 Assessment & Plan Assessment & Plan (1) Breast cancer: Status: Acute Code(s): C50.919 - Malignant neoplasm of unspecified site of unspecified female breast Plan This is an 86 year old female with history of DM, breast cancer, dementia with behavioral disturbance, HTN, HLD, CKD3, pulmonary nodule initially brought to the ED in December after her who was her primary concrete building assembler and pt living in unlivable conditions. PSYCH 06/09 continue tx. 06/10/22- Continue regime, plan of care and support of Betzaida. Informed Consent: does not understand Reason for contiued inpatient stay Substantial Risk for: rapid decompensation Time Spent With Patient Time: Total time managing care of this patient today ____ minutes.
[2022-06-10] MEDS: OLANZapine 5 MG TABLET PO (17:20)
[2022-06-10] MEDS: amLODIPine Besylate 10 MG TABLET PO (17:20)
[2022-06-11] MEDS: metFORMIN HCl 500 MG TABLET PO ×2 (08:18→17:27)
[2022-06-11] MEDS: hydroCHLOROthiazide 12.5 MG TABLET PO (08:18)
--- NOTE | 2022-06-11 11:15 | P.PNPSI_ITS ---
Subjective Subjective Date of Service: 06/11/22 Reason For Visit: Mood Interim History: Pt expressive of agitation today. Team is in process of helping her prepare for residential placement. Part of this is regular shower and ADL attention. Pt resistant to this, with verbal outburst, but able to participate, calm and have her afternoon dinner when completed. Medication Compliance: Yes Side effects from medications: No Attending Groups: Yes Review of Systems Acute medical concerns: No Medical Review of Systems: unchanged Mental Status Exam Mental Status Exam Patient Appearance: Appropriate Patient Orientation: Person Level of Consciousness: Alert Patient Behavior: Good Eye Contact Mood Description: Labile Affect Description: Labile Patient Cognition Impaired: Yes Ability to Follow Directions: Fair Speech Pattern: Spontaneous Speech Memory Description: Remote Impaired and Episodic Impaired Hallucinations: None Delusions: Not Present Thought Process: Distracted, Rumination and Slowed Thinking Thought Content: positive for [place], positive for Circumstantial and positive for Perseveration Depressive Symptoms: Increased Anxiety Judgement: Poor Diagnostics Vital Signs (24Hr): BMI result Body Mass Index 25.2 Labs 05/12/22 09:30 06/04/22 11:07 Imaging Radiology Impressions: ITS Impressions Chest CT 01/10/22 15:11 IMPRESSION: Bilateral small pulmonary nodules, left greater than right. Biapical pleural and parenchymal scarring. 1.1 x 1.4 cm heterogeneous or semisolid right apical nodule, question related to pleural and parenchymal scarring. 1.5 cm partially calcified left thyroid nodule. Based on patient age in size, this does not meet criteria for follow-up. Moderate coronary artery calcification. Fleischner guidelines were followed. Chest CT 04/01/22 14:44 IMPRESSION: *Unchanged semisolid 1.5 cm x 1.0 cm nodule within the apex of the right pulmonary lobe. Per the Fleischner Society 2017 revised guidelines, as clinically indicated recommend annual screening CT to demonstrate stability to demonstrate ultimate 5 year stability. *Unchanged small number of scattered solid pulmonary nodules ranging in size up to 6 mm diameter stable compared with 01/10/2022. *Moderate-marked diffuse coronary artery calcific atherosclerosis. *Partially visualized posttreatment related changes of the right breast. Head CT 04/18/22 09:11 IMPRESSION: No acute intracranial pathology. Chest X-Ray 05/09/22 19:28 IMPRESSION: No acute intrathoracic disease. Medications Medications Current Medications Acetaminophen (Acetaminophen 325 Mg Tablet) 650 mg PO Q6H PRN PRN Reason: Pain, Moderate (Pain Scale 4-6 Last Admin: 06/05/22 15:46 Dose: 650 mg Amlodipine Besylate (Amlodipine Besylate 10 Mg Tablet) 10 mg PO DAILY@1800 [facility]; Protocol Last Admin: 06/10/22 17:20 Dose: 10 mg Docusate Sodium (Docusate Sodium 100 Mg Capsule) 100 mg PO BID PRN PRN Reason: Constipation Last Admin: 05/03/22 10:39 Dose: 100 mg Guaifenesin (Guaifenesin 100 Mg/5 Ml Liquid) 5 ml PO Q4H PRN PRN Reason: Cough Hydrochlorothiazide (Hydrochlorothiazide 12.5 Mg Tablet) 12.5 mg PO DAILY [facility]; Protocol Last Admin: 06/11/22 08:18 Dose: 12.5 mg Ibuprofen (Ibuprofen 600 Mg Tablet) 600 mg PO Q8H PRN PRN Reason: pain not relieved by tylenol Last Admin: 05/08/22 17:25 Dose: 600 mg Lidocaine/Diphenhydr/Alum/Mg/Simeth (Mag&Al/Sim/Diphenhyd/Lidocaine 10 Ml Oral.Susp) 10 ml PO Q4H PRN; Protocol PRN Reason: Sore Throat Metformin HCl (Metformin Hcl 500 Mg Tablet) 500 mg PO BIDWM [facility] Last Admin: 06/11/22 08:18 Dose: 500 mg Olanzapine (Olanzapine 5 Mg Tablet) 5 mg PO DAILY@1800 [facility] Last Admin: 06/10/22 17:20 Dose: 5 mg Oxybutynin Chloride (Oxybutynin Chloride Er 5 Mg Tab.Er.24) 10 mg PO DAILY [facility] Last Admin: 06/11/22 08:18 Dose: 10 mg Trazodone HCl (Trazodone Hcl 50 Mg Tablet) 50 mg PO BEDTIME PRN PRN Reason: insomnia Last Admin: 05/26/22 20:30 Dose: 50 mg Allergies Allergies Allergy/AdvReac Type Severity Reaction Status Date / Time codeine Allergy Unknown Unknown Verified 12/15/21 18:29 sulfadiazine Allergy Unknown Unknown Verified 12/15/21 18:29 Assessment & Plan Assessment & Plan (1) Breast cancer: Status: Acute Code(s): C50.919 - Malignant neoplasm of unspecified site of unspecified female breast Plan This is an 86 year old female with history of DM, breast cancer, dementia with behavioral disturbance, HTN, HLD, CKD3, pulmonary nodule initially brought to the ED in December after her who was her primary die storage clerk and pt living in unlivable conditions. PSYCH 06/09 continue tx. 06/10/22- Continue regime, plan of care and support of Betzaida. 06/11/22- Continue regime, plan of care and support of Betzaida. Informed Consent: does not understand Reason for contiued inpatient stay Substantial Risk for: med/psych decompensation Time Spent With Patient Time: Total time managing care of this patient today ____ minutes.
[2022-06-11] MEDS: amLODIPine Besylate 10 MG TABLET PO (17:27)
[2022-06-11] MEDS: OLANZapine 5 MG TABLET PO (17:27)
[2022-06-11 18:00] VITALS: BP 141/70; PULSE 74; RESP 16; TEMP 36.8; O2SAT 93
[2022-06-12 06:00] VITALS: BP 126/60; PULSE 71; RESP 18; TEMP 37.1; O2SAT 97
[2022-06-12 09:00] LABS: Creatinine Clr Calc Pharmacy 42.4; Estimated Glomerular Filt Rate 55
--- NOTE | 2022-06-12 12:36 | P.PNPSI_ITS ---
Subjective Subjective Date of Service: 06/12/22 Reason For Visit: Mood Subjective Notes: Section 7 and Section 8 Interim History: The nursing staff reported the patient was showered yesterday and she was less angry than previous episodes. The staff reported that patient has been fully compliant with treatment. On interview the patient denies new symptoms, waiting for placement. Mental Status Exam Mental Status Exam Patient Appearance: Appropriate Patient Orientation: Person and Situation Level of Consciousness: Awake and Appropriate Patient Behavior: Guarded and Passive Mood Description: Withdrawn Affect Description: Constricted Patient Cognition Impaired: Yes Ability to Follow Directions: Good Speech Pattern: Clear Hallucinations: None Delusions: Paranoid Ideation Thought Process: Distracted Thought Content: positive for [place] and positive for [place] of Content Judgement: Poor Diagnostics Vital Signs (24Hr): Vital Signs - 24 hr 06/11/22 18:00 06/12/22 06:00 Temperature 98.3 F 98.8 F Pulse Rate 74 71 Respiratory Rate 16 18 Blood Pressure 141/70 H 126/60 Pulse Oximetry 93 97 Oxygen Delivery Method Room Air Room Air BMI result Body Mass Index 25.2 Labs 05/12/22 09:30 06/12/22 08:39 Labs: Laboratory Results - last 48 hr 06/12/22 08:39 Creatinine 0.96 Estim Creat Clear Calc 42.4 Estimated GFR 55 Imaging Radiology Impressions: ITS Impressions Chest CT 01/10/22 15:11 IMPRESSION: Bilateral small pulmonary nodules, left greater than right. Biapical pleural and parenchymal scarring. 1.1 x 1.4 cm heterogeneous or semisolid right apical nodule, question related to pleural and parenchymal scarring. 1.5 cm partially calcified left thyroid nodule. Based on patient age in size, this does not meet criteria for follow-up. Moderate coronary artery calcification. Fleischner guidelines were followed. Chest CT 04/01/22 14:44 IMPRESSION: *Unchanged semisolid 1.5 cm x 1.0 cm nodule within the apex of the right pulmonary lobe. Per the Fleischner Society 2017 revised guidelines, as clinically indicated recommend annual screening CT to demonstrate stability to demonstrate ultimate 5 year stability. *Unchanged small number of scattered solid pulmonary nodules ranging in size up to 6 mm diameter stable compared with 01/10/2022. *Moderate-marked diffuse coronary artery calcific atherosclerosis. *Partially visualized posttreatment related changes of the right breast. Head CT 04/18/22 09:11 IMPRESSION: No acute intracranial pathology. Chest X-Ray 05/09/22 19:28 IMPRESSION: No acute intrathoracic disease. Medications Medications Current Medications Acetaminophen (Acetaminophen 325 Mg Tablet) 650 mg PO Q6H PRN PRN Reason: Pain, Moderate (Pain Scale 4-6 Last Admin: 06/05/22 15:46 Dose: 650 mg Amlodipine Besylate (Amlodipine Besylate 10 Mg Tablet) 10 mg PO DAILY@1800 [facility]; Protocol Last Admin: 06/11/22 17:27 Dose: 10 mg Docusate Sodium (Docusate Sodium 100 Mg Capsule) 100 mg PO BID PRN PRN Reason: Constipation Last Admin: 05/03/22 10:39 Dose: 100 mg Guaifenesin (Guaifenesin 100 Mg/5 Ml Liquid) 5 ml PO Q4H PRN PRN Reason: Cough Hydrochlorothiazide (Hydrochlorothiazide 12.5 Mg Tablet) 12.5 mg PO DAILY [facility]; Protocol Last Admin: 06/12/22 09:40 Dose: Not Given Ibuprofen (Ibuprofen 600 Mg Tablet) 600 mg PO Q8H PRN PRN Reason: pain not relieved by tylenol Last Admin: 05/08/22 17:25 Dose: 600 mg Lidocaine/Diphenhydr/Alum/Mg/Simeth (Mag&Al/Sim/Diphenhyd/Lidocaine 10 Ml Oral.Susp) 10 ml PO Q4H PRN; Protocol PRN Reason: Sore Throat Metformin HCl (Metformin Hcl 500 Mg Tablet) 500 mg PO BIDWM [facility] Last Admin: 06/12/22 09:40 Dose: Not Given Olanzapine (Olanzapine 5 Mg Tablet) 5 mg PO DAILY@1800 [facility] Last Admin: 06/11/22 17:27 Dose: 5 mg Oxybutynin Chloride (Oxybutynin Chloride Er 5 Mg Tab.Er.24) 10 mg PO DAILY [facility] Last Admin: 06/12/22 09:40 Dose: Not Given Trazodone HCl (Trazodone Hcl 50 Mg Tablet) 50 mg PO BEDTIME PRN PRN Reason: insomnia Last Admin: 05/26/22 20:30 Dose: 50 mg Allergies Allergies Allergy/AdvReac Type Severity Reaction Status Date / Time codeine Allergy Unknown Unknown Verified 12/15/21 18:29 sulfadiazine Allergy Unknown Unknown Verified 12/15/21 18:29 Assessment & Plan Assessment & Plan (1) Breast cancer: Status: Acute Code(s): C50.919 - Malignant neoplasm of unspecified site of unspecified female breast Plan This is an 86 year old female with history of DM, breast cancer, dementia with behavioral disturbance, HTN, HLD, CKD3, pulmonary nodule initially brought to the ED in December after her who was her primary building services engineer and pt living in unlivable conditions. PSYCH 1. Continue with same treatment. 2. Waiting for placement. Reason for contiued inpatient stay Substantial Risk for: inability to function, rapid decompensation and med/psych decompensation Time Spent With Patient Time: Total time managing care of this patient today _20___ minutes.
[2022-06-12 17:21] VITALS: BP 144/73; PULSE 73; RESP 18; TEMP 36.6; O2SAT 94
[2022-06-12] MEDS: amLODIPine Besylate 10 MG TABLET PO (17:21)
[2022-06-12] MEDS: OLANZapine 5 MG TABLET PO (17:21)
[2022-06-12] MEDS: metFORMIN HCl 500 MG TABLET PO (17:21)
[2022-06-13 08:00] VITALS: BP 145/66; PULSE 67; RESP 16; TEMP 36.7; O2SAT 98
[2022-06-13] MEDS: hydroCHLOROthiazide 12.5 MG TABLET PO (08:42)
[2022-06-13] MEDS: metFORMIN HCl 500 MG TABLET PO ×2 (08:42→17:23)
--- NOTE | 2022-06-13 11:43 | HO.PSYCHPN ---
Subjective Subjective Date of Service: 06/13/22 Reason For Visit: Mood Subjective Notes: Section 7 and Section 8 Interim History: The nursing staff reported the patient had been visible in the unit pleasant most of the time happy on her new dependent room. The social economist reported that she was referred to [facility] probably she will be discharged pretty soon this week. On interview the patient denies new symptoms Mental Status Exam Mental Status Exam Patient Appearance: Appropriate Patient Orientation: Person and Situation Level of Consciousness: Awake and Appropriate Patient Behavior: Guarded and Passive Mood Description: Withdrawn Affect Description: Calm Patient Cognition Impaired: Yes Ability to Follow Directions: Good Speech Pattern: Clear Hallucinations: None Delusions: Paranoid Ideation Thought Process: Distracted and Evasive Thought Content: positive for [place] and positive for [place] Oriented Judgement: Fair Diagnostics Vital Signs (24Hr): Vital Signs - 24 hr 06/12/22 17:21 06/13/22 08:00 Temperature 97.9 F 98.0 F Pulse Rate 73 67 Respiratory Rate 18 16 Blood Pressure 144/73 H 145/66 H Pulse Oximetry 94 98 Oxygen Delivery Method Room Air Room Air BMI result Body Mass Index 25.2 Labs 05/12/22 09:30 06/12/22 08:39 Labs: Laboratory Results - last 48 hr 06/12/22 08:39 Creatinine 0.96 Estim Creat Clear Calc 42.4 Estimated GFR 55 Imaging Radiology Impressions: ITS Impressions Chest CT 01/10/22 15:11 IMPRESSION: Bilateral small pulmonary nodules, left greater than right. Biapical pleural and parenchymal scarring. 1.1 x 1.4 cm heterogeneous or semisolid right apical nodule, question related to pleural and parenchymal scarring. 1.5 cm partially calcified left thyroid nodule. Based on patient age in size, this does not meet criteria for follow-up. Moderate coronary artery calcification. Fleischner guidelines were followed. Chest CT 04/01/22 14:44 IMPRESSION: *Unchanged semisolid 1.5 cm x 1.0 cm nodule within the apex of the right pulmonary lobe. Per the Fleischner Society 2017 revised guidelines, as clinically indicated recommend annual screening CT to demonstrate stability to demonstrate ultimate 5 year stability. *Unchanged small number of scattered solid pulmonary nodules ranging in size up to 6 mm diameter stable compared with 01/10/2022. *Moderate-marked diffuse coronary artery calcific atherosclerosis. *Partially visualized posttreatment related changes of the right breast. Head CT 04/18/22 09:11 IMPRESSION: No acute intracranial pathology. Chest X-Ray 05/09/22 19:28 IMPRESSION: No acute intrathoracic disease. Medications Medications Current Medications Acetaminophen (Acetaminophen 325 Mg Tablet) 650 mg PO Q6H PRN PRN Reason: Pain, Moderate (Pain Scale 4-6 Last Admin: 06/05/22 15:46 Dose: 650 mg Amlodipine Besylate (Amlodipine Besylate 10 Mg Tablet) 10 mg PO DAILY@1800 [facility]; Protocol Last Admin: 06/12/22 17:21 Dose: 10 mg Docusate Sodium (Docusate Sodium 100 Mg Capsule) 100 mg PO BID PRN PRN Reason: Constipation Last Admin: 05/03/22 10:39 Dose: 100 mg Guaifenesin (Guaifenesin 100 Mg/5 Ml Liquid) 5 ml PO Q4H PRN PRN Reason: Cough Hydrochlorothiazide (Hydrochlorothiazide 12.5 Mg Tablet) 12.5 mg PO DAILY [facility]; Protocol Last Admin: 06/13/22 08:42 Dose: 12.5 mg Ibuprofen (Ibuprofen 600 Mg Tablet) 600 mg PO Q8H PRN PRN Reason: pain not relieved by tylenol Last Admin: 05/08/22 17:25 Dose: 600 mg Lidocaine/Diphenhydr/Alum/Mg/Simeth (Mag&Al/Sim/Diphenhyd/Lidocaine 10 Ml Oral.Susp) 10 ml PO Q4H PRN; Protocol PRN Reason: Sore Throat Metformin HCl (Metformin Hcl 500 Mg Tablet) 500 mg PO BIDWM [facility] Last Admin: 06/13/22 08:42 Dose: 500 mg Olanzapine (Olanzapine 5 Mg Tablet) 5 mg PO DAILY@1800 [facility] Last Admin: 06/12/22 17:21 Dose: 5 mg Oxybutynin Chloride (Oxybutynin Chloride Er 5 Mg Tab.Er.24) 10 mg PO DAILY [facility] Last Admin: 06/13/22 08:42 Dose: 10 mg Trazodone HCl (Trazodone Hcl 50 Mg Tablet) 50 mg PO BEDTIME PRN PRN Reason: insomnia Last Admin: 05/26/22 20:30 Dose: 50 mg Allergies Allergies Allergy/AdvReac Type Severity Reaction Status Date / Time codeine Allergy Unknown Unknown Verified 12/15/21 18:29 sulfadiazine Allergy Unknown Unknown Verified 12/15/21 18:29 Assessment & Plan Assessment & Plan (1) Breast cancer: Status: Acute Code(s): C50.919 - Malignant neoplasm of unspecified site of unspecified female breast Plan This is an 86 year old female with history of DM, breast cancer, dementia with behavioral disturbance, HTN, HLD, CKD3, pulmonary nodule initially brought to the ED in December after her who was her primary torpedo worker and pt living in unlivable conditions. PSYCH 1. Continue with same treatment. 2. Waiting for placement. Reason for contiued inpatient stay Substantial Risk for: inability to function, rapid decompensation and med/psych decompensation Time Spent With Patient Time: Total time managing care of this patient today __20__ minutes.
[2022-06-13] MEDS: amLODIPine Besylate 10 MG TABLET PO (17:24)
[2022-06-13] MEDS: OLANZapine 5 MG TABLET PO (17:24)
[2022-06-13 17:26] VITALS: BP 144/65; PULSE 74; RESP 16; TEMP 37.4; O2SAT 96
[2022-06-13 18:00] VITALS: BP 132/60; PULSE 65; RESP 16; TEMP 36.2; O2SAT 93
[2022-06-14 08:00] VITALS: BP 145/67; PULSE 73; RESP 16; TEMP 36.8; O2SAT 95
[2022-06-14] MEDS: metFORMIN HCl 500 MG TABLET PO ×2 (08:14→17:12)
[2022-06-14] MEDS: hydroCHLOROthiazide 12.5 MG TABLET PO (08:14)
--- NOTE | 2022-06-14 11:16 | PC.NURSE ---
Pt requested to shower after 1100 when approached to shower this am. Chair utilized in shower. Cueing and mod assist to complete showering task. Able to dry self. Minimal assist for dressing after shower.
--- NOTE | 2022-06-14 12:26 | HO.PSYCHPN ---
Subjective Subjective Date of Service: 06/14/22 Reason For Visit: Mood Subjective Notes: Conditional Voluntary Interim History: The nursing staff reported the patient had been sad and depressed since she remember in her . The social media intern reported the probably she could be discharged tomorrow. On interview the patient denies new symptoms. Mental Status Exam Mental Status Exam Patient Appearance: Appropriate Patient Orientation: Person and Situation Level of Consciousness: Awake and Appropriate Patient Behavior: Guarded and Passive Mood Description: Withdrawn Affect Description: Constricted Patient Cognition Impaired: Yes Ability to Follow Directions: Good Speech Pattern: Clear Hallucinations: None Delusions: Paranoid Ideation Thought Process: Distracted Thought Content: positive for [place] and positive for Circumstantial Judgement: Poor Diagnostics Vital Signs (24Hr): Vital Signs - 24 hr 06/13/22 17:26 06/13/22 18:00 06/14/22 08:00 Temperature 99.3 F 97.2 F 98.3 F Pulse Rate 74 65 73 Respiratory Rate 16 16 16 Blood Pressure 144/65 H 132/60 145/67 H Pulse Oximetry 96 93 95 Oxygen Delivery Method Room Air Room Air Room Air BMI result Body Mass Index 25.2 Labs 05/12/22 09:30 06/12/22 08:39 Imaging Radiology Impressions: ITS Impressions Chest CT 01/10/22 15:11 IMPRESSION: Bilateral small pulmonary nodules, left greater than right. Biapical pleural and parenchymal scarring. 1.1 x 1.4 cm heterogeneous or semisolid right apical nodule, question related to pleural and parenchymal scarring. 1.5 cm partially calcified left thyroid nodule. Based on patient age in size, this does not meet criteria for follow-up. Moderate coronary artery calcification. Fleischner guidelines were followed. Chest CT 04/01/22 14:44 IMPRESSION: *Unchanged semisolid 1.5 cm x 1.0 cm nodule within the apex of the right pulmonary lobe. Per the Fleischner Society 2017 revised guidelines, as clinically indicated recommend annual screening CT to demonstrate stability to demonstrate ultimate 5 year stability. *Unchanged small number of scattered solid pulmonary nodules ranging in size up to 6 mm diameter stable compared with 01/10/2022. *Moderate-marked diffuse coronary artery calcific atherosclerosis. *Partially visualized posttreatment related changes of the right breast. Head CT 04/18/22 09:11 IMPRESSION: No acute intracranial pathology. Chest X-Ray 05/09/22 19:28 IMPRESSION: No acute intrathoracic disease. Medications Medications Current Medications Acetaminophen (Acetaminophen 325 Mg Tablet) 650 mg PO Q6H PRN PRN Reason: Pain, Moderate (Pain Scale 4-6 Last Admin: 06/05/22 15:46 Dose: 650 mg Amlodipine Besylate (Amlodipine Besylate 10 Mg Tablet) 10 mg PO DAILY@1800 [facility]; Protocol Last Admin: 06/13/22 17:24 Dose: 10 mg Docusate Sodium (Docusate Sodium 100 Mg Capsule) 100 mg PO BID PRN PRN Reason: Constipation Last Admin: 05/03/22 10:39 Dose: 100 mg Guaifenesin (Guaifenesin 100 Mg/5 Ml Liquid) 5 ml PO Q4H PRN PRN Reason: Cough Hydrochlorothiazide (Hydrochlorothiazide 12.5 Mg Tablet) 12.5 mg PO DAILY [facility]; Protocol Last Admin: 06/14/22 08:14 Dose: 12.5 mg Ibuprofen (Ibuprofen 600 Mg Tablet) 600 mg PO Q8H PRN PRN Reason: pain not relieved by tylenol Last Admin: 05/08/22 17:25 Dose: 600 mg Lidocaine/Diphenhydr/Alum/Mg/Simeth (Mag&Al/Sim/Diphenhyd/Lidocaine 10 Ml Oral.Susp) 10 ml PO Q4H PRN; Protocol PRN Reason: Sore Throat Metformin HCl (Metformin Hcl 500 Mg Tablet) 500 mg PO BIDWM [facility] Last Admin: 06/14/22 08:14 Dose: 500 mg Olanzapine (Olanzapine 5 Mg Tablet) 5 mg PO DAILY@1800 [facility] Last Admin: 06/13/22 17:24 Dose: 5 mg Oxybutynin Chloride (Oxybutynin Chloride Er 5 Mg Tab.Er.24) 10 mg PO DAILY [facility] Last Admin: 06/14/22 08:14 Dose: 10 mg Trazodone HCl (Trazodone Hcl 50 Mg Tablet) 50 mg PO BEDTIME PRN PRN Reason: insomnia Last Admin: 05/26/22 20:30 Dose: 50 mg Allergies Allergies Allergy/AdvReac Type Severity Reaction Status Date / Time codeine Allergy Unknown Unknown Verified 12/15/21 18:29 sulfadiazine Allergy Unknown Unknown Verified 12/15/21 18:29 Assessment & Plan Assessment & Plan (1) Breast cancer: Status: Acute Code(s): C50.919 - Malignant neoplasm of unspecified site of unspecified female breast Plan This is an 86 year old female with history of DM, breast cancer, dementia with behavioral disturbance, HTN, HLD, CKD3, pulmonary nodule initially brought to the ED in December after her who was her primary outer diameter grinder tool and pt living in unlivable conditions. PSYCH 1. Continue with same treatment. 2. Waiting for placement. Reason for contiued inpatient stay Substantial Risk for: inability to function, rapid decompensation and med/psych decompensation Time Spent With Patient Time: Total time managing care of this patient today __20__ minutes.
[2022-06-14 17:10] VITALS: BP 133/63; PULSE 72; RESP 16; TEMP 36.4; O2SAT 96
[2022-06-14] MEDS: amLODIPine Besylate 10 MG TABLET PO (17:13)
[2022-06-14] MEDS: OLANZapine 5 MG TABLET PO (17:13)
[2022-06-15 07:00] VITALS: BMI 24.6
[2022-06-15 09:15] VITALS: BP 147/65; PULSE 68; RESP 16; TEMP 35.9; O2SAT 95
[2022-06-15] MEDS: metFORMIN HCl 500 MG TABLET PO ×2 (09:51→16:04)
[2022-06-15] MEDS: hydroCHLOROthiazide 12.5 MG TABLET PO (09:51)
--- NOTE | 2022-06-15 11:36 | P.PNPSI_ITS ---
Subjective Subjective Date of Service: 06/15/22 Reason For Visit: Mood Subjective Notes: Conditional Voluntary Interim History: The nursing staff reported the patient had been compliant with treatment, no new changes. The hospice social worker reported that today she cannot be discharged but most likely tomorrow. We discussed and team that she could be very anxious and paranoid so we start a new dose of Zyprexa in the morning. Mental Status Exam Mental Status Exam Patient Appearance: Appropriate Patient Orientation: Person and Situation Level of Consciousness: Awake and Appropriate Patient Behavior: Guarded and Passive Mood Description: Withdrawn Affect Description: Constricted Patient Cognition Impaired: Yes Ability to Follow Directions: Good Speech Pattern: Clear Hallucinations: None Delusions: Not Present Thought Process: Distracted Thought Content: positive for [place] and positive for Poverty of Content Judgement: Fair Diagnostics Vital Signs (24Hr): Vital Signs - 24 hr 06/14/22 17:10 06/15/22 09:15 Temperature 97.6 F 96.7 F L Pulse Rate 72 68 Respiratory Rate 16 16 Blood Pressure 133/63 147/65 H Pulse Oximetry 96 95 Oxygen Delivery Method Room Air Room Air BMI result Body Mass Index 25.2 Labs 05/12/22 09:30 06/12/22 08:39 Imaging Radiology Impressions: ITS Impressions Chest CT 01/10/22 15:11 IMPRESSION: Bilateral small pulmonary nodules, left greater than right. Biapical pleural and parenchymal scarring. 1.1 x 1.4 cm heterogeneous or semisolid right apical nodule, question related to pleural and parenchymal scarring. 1.5 cm partially calcified left thyroid nodule. Based on patient age in size, this does not meet criteria for follow-up. Moderate coronary artery calcification. Fleischner guidelines were followed. Chest CT 04/01/22 14:44 IMPRESSION: *Unchanged semisolid 1.5 cm x 1.0 cm nodule within the apex of the right pulmonary lobe. Per the Fleischner Society 2017 revised guidelines, as clinically indicated recommend annual screening CT to demonstrate stability to demonstrate ultimate 5 year stability. *Unchanged small number of scattered solid pulmonary nodules ranging in size up to 6 mm diameter stable compared with 01/10/2022. *Moderate-marked diffuse coronary artery calcific atherosclerosis. *Partially visualized posttreatment related changes of the right breast. Head CT 04/18/22 09:11 IMPRESSION: No acute intracranial pathology. Chest X-Ray 05/09/22 19:28 IMPRESSION: No acute intrathoracic disease. Medications Medications Current Medications Acetaminophen (Acetaminophen 325 Mg Tablet) 650 mg PO Q6H PRN PRN Reason: Pain, Moderate (Pain Scale 4-6 Last Admin: 06/05/22 15:46 Dose: 650 mg Amlodipine Besylate (Amlodipine Besylate 10 Mg Tablet) 10 mg PO DAILY@1800 [facility]; Protocol Last Admin: 06/14/22 17:13 Dose: 10 mg Docusate Sodium (Docusate Sodium 100 Mg Capsule) 100 mg PO BID PRN PRN Reason: Constipation Last Admin: 05/03/22 10:39 Dose: 100 mg Guaifenesin (Guaifenesin 100 Mg/5 Ml Liquid) 5 ml PO Q4H PRN PRN Reason: Cough Hydrochlorothiazide (Hydrochlorothiazide 12.5 Mg Tablet) 12.5 mg PO DAILY [facility]; Protocol Last Admin: 06/15/22 09:51 Dose: 12.5 mg Ibuprofen (Ibuprofen 600 Mg Tablet) 600 mg PO Q8H PRN PRN Reason: pain not relieved by tylenol Last Admin: 05/08/22 17:25 Dose: 600 mg Lidocaine/Diphenhydr/Alum/Mg/Simeth (Mag&Al/Sim/Diphenhyd/Lidocaine 10 Ml Oral. Susp) 10 ml PO Q4H PRN; Protocol PRN Reason: Sore Throat Metformin HCl (Metformin Hcl 500 Mg Tablet) 500 mg PO BIDWM [facility] Last Admin: 06/15/22 09:51 Dose: 500 mg Olanzapine (Olanzapine 5 Mg Tablet) 5 mg PO DAILY@1800 [facility] Last Admin: 06/14/22 17:13 Dose: 5 mg Olanzapine (Olanzapine 2.5 Mg Tablet) 2.5 mg PO DAILY [facility] Oxybutynin Chloride (Oxybutynin Chloride Er 5 Mg Tab.Er.24) 10 mg PO DAILY [facility] Last Admin: 06/15/22 09:50 Dose: 10 mg Trazodone HCl (Trazodone Hcl 50 Mg Tablet) 50 mg PO BEDTIME PRN PRN Reason: insomnia Last Admin: 05/26/22 20:30 Dose: 50 mg Allergies Allergies Allergy/AdvReac Type Severity Reaction Status Date / Time codeine Allergy Unknown Unknown Verified 12/15/21 18:29 sulfadiazine Allergy Unknown Unknown Verified 12/15/21 18:29 Assessment & Plan Assessment & Plan (1) Breast cancer: Status: Acute Code(s): C50.919 - Malignant neoplasm of unspecified site of unspecified female breast Plan This is an 86 year old female with history of DM, breast cancer, dementia with behavioral disturbance, HTN, HLD, CKD3, pulmonary nodule initially brought to the ED in December after her who was her primary director business development and pt living in unlivable conditions. PSYCH 1. Continue with same treatment. 2. Waiting for placement. Most likely discharge tomorrow to the [facility] facility Reason for contiued inpatient stay Substantial Risk for: inability to function, rapid decompensation and med/psych decompensation Time Spent With Patient Time: Total time managing care of this patient today __20__ minutes.
[2022-06-15 17:56] VITALS: BP 146/84; PULSE 78; RESP 20; TEMP 36.9; O2SAT 95
[2022-06-15] MEDS: amLODIPine Besylate 10 MG TABLET PO (17:59)
[2022-06-15] MEDS: OLANZapine 5 MG TABLET PO (17:59)
[2022-06-16 08:28] LABS: Cholesterol 194 mg/dL; HDL Cholesterol 30 mg/dL; LDL Cholesterol Calculated 138 mg/dl; Triglycerides 131 mg/dL
[2022-06-16 09:50] VITALS: BP 139/66; PULSE 77; RESP 14; TEMP 37.1; O2SAT 97
[2022-06-16] MEDS: OLANZapine 2.5 MG TABLET PO (10:02)
[2022-06-16] MEDS: metFORMIN HCl 500 MG TABLET PO ×2 (10:02→15:55)
[2022-06-16] MEDS: hydroCHLOROthiazide 12.5 MG TABLET PO (10:03)
--- NOTE | 2022-06-16 11:52 | P.PNPSI_ITS ---
Subjective Subjective Date of Service: 06/16/22 Reason For Visit: Mood Subjective Notes: Section 7 and Section 8 Guardianship: Yes Interim History: The nursing staff reported the patient has been anxious all night long since I told her that she was going to be discharged pretty soon to group home facility. She was compliant with medications. On interview the patient denies new symptoms she is anxious with the possibility of leaving the unit. I explained her that in group home facility she will have more liberty and admitted to take care of her other medical problems Mental Status Exam Mental Status Exam Patient Appearance: Well Grooomed and Appropriate Patient Orientation: Person and Situation Level of Consciousness: Awake and Appropriate Patient Behavior: Guarded and Passive Mood Description: Withdrawn Affect Description: Constricted Patient Cognition Impaired: Yes Ability to Follow Directions: Good Speech Pattern: Clear Hallucinations: None Delusions: Not Present Thought Process: Distracted Thought Content: positive for [place] and positive for Circumstantial Judgement: Fair Diagnostics Vital Signs (24Hr): Vital Signs - 24 hr 06/15/22 17:56 06/16/22 09:50 Temperature 98.4 F 98.8 F Pulse Rate 78 77 Respiratory Rate 20 14 Blood Pressure 146/84 H 139/66 Pulse Oximetry 95 97 Oxygen Delivery Method Room Air Room Air BMI result Body Mass Index 24.6 Labs 05/12/22 09:30 06/12/22 08:39 Labs: Laboratory Results - last 48 hr 06/16/22 07:59 Triglycerides 131 Cholesterol 194 LDL Cholesterol, Calc 138 HDL Cholesterol 30 Imaging Radiology Impressions: ITS Impressions Chest CT 01/10/22 15:11 IMPRESSION: Bilateral small pulmonary nodules, left greater than right. Biapical pleural and parenchymal scarring. 1.1 x 1.4 cm heterogeneous or semisolid right apical nodule, question related to pleural and parenchymal scarring. 1.5 cm partially calcified left thyroid nodule. Based on patient age in size, this does not meet criteria for follow-up. Moderate coronary artery calcification. Fleischner guidelines were followed. Chest CT 04/01/22 14:44 IMPRESSION: *Unchanged semisolid 1.5 cm x 1.0 cm nodule within the apex of the right pulmonary lobe. Per the Fleischner Society 2017 revised guidelines, as clinically indicated recommend annual screening CT to demonstrate stability to demonstrate ultimate 5 year stability. *Unchanged small number of scattered solid pulmonary nodules ranging in size up to 6 mm diameter stable compared with 01/10/2022. *Moderate-marked diffuse coronary artery calcific atherosclerosis. *Partially visualized posttreatment related changes of the right breast. Head CT 04/18/22 09:11 IMPRESSION: No acute intracranial pathology. Chest X-Ray 05/09/22 19:28 IMPRESSION: No acute intrathoracic disease. Medications Medications Current Medications Acetaminophen (Acetaminophen 325 Mg Tablet) 650 mg PO Q6H PRN PRN Reason: Pain, Moderate (Pain Scale 4-6 Last Admin: 06/05/22 15:46 Dose: 650 mg Amlodipine Besylate (Amlodipine Besylate 10 Mg Tablet) 10 mg PO DAILY@1800 [facility]; Protocol Last Admin: 06/15/22 17:59 Dose: 10 mg Docusate Sodium (Docusate Sodium 100 Mg Capsule) 100 mg PO BID PRN PRN Reason: Constipation Last Admin: 05/03/22 10:39 Dose: 100 mg Guaifenesin (Guaifenesin 100 Mg/5 Ml Liquid) 5 ml PO Q4H PRN PRN Reason: Cough Hydrochlorothiazide (Hydrochlorothiazide 12.5 Mg Tablet) 12.5 mg PO DAILY [facility]; Protocol Last Admin: 06/16/22 10:03 Dose: 12.5 mg Ibuprofen (Ibuprofen 600 Mg Tablet) 600 mg PO Q8H PRN PRN Reason: pain not relieved by tylenol Last Admin: 05/08/22 17:25 Dose: 600 mg Lidocaine/Diphenhydr/Alum/Mg/Simeth (Mag&Al/Sim/Diphenhyd/Lidocaine 10 Ml Oral.Susp) 10 ml PO Q4H PRN; Protocol PRN Reason: Sore Throat Metformin HCl (Metformin Hcl 500 Mg Tablet) 500 mg PO BIDWM [facility] Last Admin: 06/16/22 10:02 Dose: 500 mg Olanzapine (Olanzapine 5 Mg Tablet) 5 mg PO DAILY@1800 [facility] Last Admin: 06/15/22 17:59 Dose: 5 mg Olanzapine (Olanzapine 2.5 Mg Tablet) 2.5 mg PO DAILY [facility] Last Admin: 06/16/22 10:02 Dose: 2.5 mg Oxybutynin Chloride (Oxybutynin Chloride Er 5 Mg Tab.Er.24) 10 mg PO DAILY [facility] Last Admin: 06/16/22 10:02 Dose: 10 mg Trazodone HCl (Trazodone Hcl 50 Mg Tablet) 50 mg PO BEDTIME PRN PRN Reason: insomnia Last Admin: 05/26/22 20:30 Dose: 50 mg Allergies Allergies Allergy/AdvReac Type Severity Reaction Status Date / Time codeine Allergy Unknown Unknown Verified 12/15/21 18:29 sulfadiazine Allergy Unknown Unknown Verified 12/15/21 18:29 Assessment & Plan Assessment & Plan (1) Breast cancer: Status: Acute Code(s): C50.919 - Malignant neoplasm of unspecified site of unspecified female breast Plan This is an 86 year old female with history of DM, breast cancer, dementia with behavioral disturbance, HTN, HLD, CKD3, pulmonary nodule initially brought to the ED in December after her who was her primary leather 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 PSYCH 1. Continue with same treatment. 2. Waiting for placement. Most likely discharge next Sunday to the group home facility Reason for contiued inpatient stay Substantial Risk for: inability to function, rapid decompensation and med/psych decompensation Time Spent With Patient Time: Total time managing care of this patient today _20___ minutes.
[2022-06-16 18:00] VITALS: RESP 16
[2022-06-16] MEDS: OLANZapine 5 MG TABLET PO (18:12)
[2022-06-16] MEDS: amLODIPine Besylate 10 MG TABLET PO (18:12)
[2022-06-17 06:00] VITALS: BP 127/60; PULSE 75; RESP 18; TEMP 36.7; O2SAT 96
[2022-06-17] MEDS: metFORMIN HCl 500 MG TABLET PO ×2 (09:12→16:12)
[2022-06-17] MEDS: hydroCHLOROthiazide 12.5 MG TABLET PO (09:12)
[2022-06-17] MEDS: OLANZapine 2.5 MG TABLET PO (09:13)
--- NOTE | 2022-06-17 12:47 | P.PNPSI_ITS ---
Subjective Subjective Date of Service: 06/17/22 Reason For Visit: Mood Subjective Notes: Section 8 Interim History: Pt in bed resting. She denies any physical concerns but interview short as pt reports she would like to take a nap. She denies SI/HI. Per nursing, no behavioral concerns. No overt psychosis. Medication Compliance: Yes Review of Systems Review of Systems Dental issues Yes all other systems are reviewed and are negative and Unobtainable due to mental status Constitutional: Reports no additional constitutional complaints, Denies chills and Denies fever(s) Eyes: Reports no additional eye complaints Reports system reviewed and no additional complaints, except as documented Cardiovascular: Reports no additional cardiovascular complaints, Denies chest pain and Denies dyspnea Respiratory: Reports no additional respiratory complaints, Denies cough and Denies dyspnea Gastrointestinal: Reports no additional gastrointestinal complaints Musculoskeletal: Reports no additional musculoskeletal complaints Skin/Breast: Reports system reviewed and no additional complaints, except as docu Reports system reviewed and no additional complaints, except as documented and Reports confusion (at times speaking randomly and changing subject) Psychiatric: Reports no additional psychiatric complaints, Reports as per HPI and Reports confusion (at times speaking randomly and changing subject) Endocrine: Reports no additional endocrine complaints Hematologic/Lymphatic: Reports no additional hematologic/lymphatic complaints Allergic/Immunologic: Reports no additional allergic/immunologic complaints Mental Status Exam Mental Status Exam Narrative: Appearance: wearing casual clothing, poor hygiene, ambulating with walker. Behavior: somewhat guarded Psychomotor: no agitation or retardation Speech: clear, normal rate/rhythm/volume, spontaneous TP: linear TC: no overt psychosis, asking for dentist for pain Mood: okay Affect: congruent, non labile SI: none HI: none AH/VH: none Delusions: none Insight/judgment: impaired x 2. Memory/ cognition: alert, oriented to place (knows this is [facility]), not situation, nor month nor date nor year. Pt with significant impairment in recall, executive function, visuospatial skills, language repetition and fluency. Fair attention. Diagnostics Vital Signs (24Hr): Vital Signs - 24 hr 06/16/22 18:00 06/17/22 06:00 Temperature 98.1 F Pulse Rate 75 Respiratory Rate 16 18 Blood Pressure 127/60 Pulse Oximetry 96 Oxygen Delivery Method Room Air BMI result Body Mass Index 24.6 Labs 05/12/22 09:30 06/12/22 08:39 Labs: Laboratory Results - last 48 hr 06/16/22 07:59 Triglycerides 131 Cholesterol 194 LDL Cholesterol, Calc 138 HDL Cholesterol 30 Imaging Radiology Impressions: ITS Impressions Chest CT 01/10/22 15:11 IMPRESSION: Bilateral small pulmonary nodules, left greater than right. Biapical pleural and parenchymal scarring. 1.1 x 1.4 cm heterogeneous or semisolid right apical nodule, question related to pleural and parenchymal scarring. 1.5 cm partially calcified left thyroid nodule. Based on patient age in size, this does not meet criteria for follow-up. Moderate coronary artery calcification. Fleischner guidelines were followed. Chest CT 04/01/22 14:44 IMPRESSION: *Unchanged semisolid 1.5 cm x 1.0 cm nodule within the apex of the right pulmonary lobe. Per the Fleischner Society 2017 revised guidelines, as clinically indicated recommend annual screening CT to demonstrate stability to demonstrate ultimate 5 year stability. *Unchanged small number of scattered solid pulmonary nodules ranging in size up to 6 mm diameter stable compared with 01/10/2022. *Moderate-marked diffuse coronary artery calcific atherosclerosis. *Partially visualized posttreatment related changes of the right breast. Head CT 04/18/22 09:11 IMPRESSION: No acute intracranial pathology. Chest X-Ray 05/09/22 19:28 IMPRESSION: No acute intrathoracic disease. Medications Medications Current Medications Acetaminophen (Acetaminophen 325 Mg Tablet) 650 mg PO Q6H PRN PRN Reason: Pain, Moderate (Pain Scale 4-6 Last Admin: 06/05/22 15:46 Dose: 650 mg Amlodipine Besylate (Amlodipine Besylate 10 Mg Tablet) 10 mg PO DAILY@1800 [facility]; Protocol Last Admin: 06/16/22 18:12 Dose: 10 mg Docusate Sodium (Docusate Sodium 100 Mg Capsule) 100 mg PO BID PRN PRN Reason: Constipation Last Admin: 05/03/22 10:39 Dose: 100 mg Guaifenesin (Guaifenesin 100 Mg/5 Ml Liquid) 5 ml PO Q4H PRN PRN Reason: Cough Hydrochlorothiazide (Hydrochlorothiazide 12.5 Mg Tablet) 12.5 mg PO DAILY [facility]; Protocol Last Admin: 06/17/22 09:12 Dose: 12.5 mg Ibuprofen (Ibuprofen 600 Mg Tablet) 600 mg PO Q8H PRN PRN Reason: pain not relieved by tylenol Last Admin: 05/08/22 17:25 Dose: 600 mg Lidocaine/Diphenhydr/Alum/Mg/Simeth (Mag&Al/Sim/Diphenhyd/Lidocaine 10 Ml Oral.Susp) 10 ml PO Q4H PRN; Protocol PRN Reason: Sore Throat Metformin HCl (Metformin Hcl 500 Mg Tablet) 500 mg PO BIDWM [facility] Last Admin: 06/17/22 09:12 Dose: 500 mg Olanzapine (Olanzapine 5 Mg Tablet) 5 mg PO DAILY@1800 [facility] Last Admin: 06/16/22 18:12 Dose: 5 mg Olanzapine (Olanzapine 2.5 Mg Tablet) 2.5 mg PO DAILY [facility] Last Admin: 06/17/22 09:13 Dose: 2.5 mg Oxybutynin Chloride (Oxybutynin Chloride Er 5 Mg Tab.Er.24) 10 mg PO DAILY [facility] Last Admin: 06/17/22 09:12 Dose: 10 mg Allergies Allergies Allergy/AdvReac Type Severity Reaction Status Date / Time codeine Allergy Unknown Unknown Verified 12/15/21 18:29 sulfadiazine Allergy Unknown Unknown Verified 12/15/21 18:29 Assessment & Plan Assessment & Plan (1) Breast cancer: Status: Acute Code(s): C50.919 - Malignant neoplasm of unspecified site of unspecified female breast Plan This is an 86 year old female with history of DM, breast cancer, dementia with behavioral disturbance, HTN, HLD, CKD3, pulmonary nodule initially brought to the ED in December after her who was her primary small kick press operator and pt living in unlivable conditions. PSYCH 1. Continue with same treatment. 2. Waiting for placement. Most likely discharge next Sunday to the nursing home facility 06/17 continue tx. Reason for contiued inpatient stay Substantial Risk for: inability to function Time Spent With Patient Time: Total time managing care of this patient today ____ minutes.
[2022-06-17] MEDS: amLODIPine Besylate 10 MG TABLET PO (17:30)
[2022-06-17] MEDS: OLANZapine 5 MG TABLET PO (17:30)
[2022-06-17 18:00] VITALS: BP 143/75; PULSE 76; RESP 18; TEMP 36.2; O2SAT 95
[2022-06-18 08:58] VITALS: BP 135/62; PULSE 77; RESP 16; TEMP 37.3; O2SAT 97
[2022-06-18] MEDS: hydroCHLOROthiazide 12.5 MG TABLET PO (09:00)
[2022-06-18] MEDS: metFORMIN HCl 500 MG TABLET PO ×2 (09:00→17:10)
[2022-06-18] MEDS: OLANZapine 2.5 MG TABLET PO (09:00)
--- NOTE | 2022-06-18 11:12 | HO.PSYCHPN ---
Subjective Subjective Date of Service: 06/18/22 Reason For Visit: Mood Subjective Notes: Section 8 Interim History: Pt reports she slept well. She denies any physical concerns. She was reminded that she will go to another facility, [facility] termin[facility]. She states that's sad, I like it here, the floors are shined, is clean, the staff is good. She seemed to have forgotten this information was conveyed to ehr several times last week, stating thank you for telling me, no one told me. She also does not remember this global technical writer despite several interactions during this admission. She always looks at my badge, states Oh, nurse practitioner, how long have you been here? Per nursing, no behavioral concerns. Plan for d/c tomorrow. Medication Compliance: Yes Side effects from medications: No Review of Systems Review of Systems Dental issues Yes all other systems are reviewed and are negative and Unobtainable due to mental status Constitutional: Reports no additional constitutional complaints, Denies chills and Denies fever(s) Eyes: Reports no additional eye complaints Reports system reviewed and no additional complaints, except as documented Cardiovascular: Reports no additional cardiovascular complaints, Denies chest pain and Denies dyspnea Respiratory: Reports no additional respiratory complaints, Denies cough and Denies dyspnea Gastrointestinal: Reports no additional gastrointestinal complaints Musculoskeletal: Reports no additional musculoskeletal complaints Skin/Breast: Reports system reviewed and no additional complaints, except as docu Reports system reviewed and no additional complaints, except as documented and Reports confusion (at times speaking randomly and changing subject) Psychiatric: Reports no additional psychiatric complaints, Reports as per HPI and Reports confusion (at times speaking randomly and changing subject) Endocrine: Reports no additional endocrine complaints Hematologic/Lymphatic: Reports no additional hematologic/lymphatic complaints Allergic/Immunologic: Reports no additional allergic/immunologic complaints Mental Status Exam Mental Status Exam Narrative: Appearance: wearing casual clothing, poor hygiene, ambulating with walker. Behavior: somewhat guarded Psychomotor: no agitation or retardation Speech: clear, normal rate/rhythm/volume, spontaneous TP: linear TC: no overt psychosis, asking for dentist for pain Mood: okay Affect: congruent, non labile SI: none HI: none AH/VH: none Delusions: none Insight/judgment: impaired x 2. Memory/ cognition: alert, oriented to place (knows this is [facility]), not situation, nor month nor date nor year. Pt with significant impairment in recall, executive function, visuospatial skills, language repetition and fluency. Fair attention. Diagnostics Vital Signs (24Hr): Vital Signs - 24 hr 06/17/22 18:00 06/18/22 08:58 Temperature 97.1 F 99.2 F Pulse Rate 76 77 Respiratory Rate 18 16 Blood Pressure 143/75 H 135/62 Pulse Oximetry 95 97 Oxygen Delivery Method Room Air Room Air BMI result Body Mass Index 24.6 Labs 05/12/22 09:30 06/12/22 08:39 Imaging Radiology Impressions: ITS Impressions Chest CT 01/10/22 15:11 IMPRESSION: Bilateral small pulmonary nodules, left greater than right. Biapical pleural and parenchymal scarring. 1.1 x 1.4 cm heterogeneous or semisolid right apical nodule, question related to pleural and parenchymal scarring. 1.5 cm partially calcified left thyroid nodule. Based on patient age in size, this does not meet criteria for follow-up. Moderate coronary artery calcification. Fleischner guidelines were followed. Chest CT 04/01/22 14:44 IMPRESSION: *Unchanged semisolid 1.5 cm x 1.0 cm nodule within the apex of the right pulmonary lobe. Per the Fleischner Society 2017 revised guidelines, as clinically indicated recommend annual screening CT to demonstrate stability to demonstrate ultimate 5 year stability. *Unchanged small number of scattered solid pulmonary nodules ranging in size up to 6 mm diameter stable compared with 01/10/2022. *Moderate-marked diffuse coronary artery calcific atherosclerosis. *Partially visualized posttreatment related changes of the right breast. Head CT 04/18/22 09:11 IMPRESSION: No acute intracranial pathology. Chest X-Ray 05/09/22 19:28 IMPRESSION: No acute intrathoracic disease. Medications Medications Current Medications Acetaminophen (Acetaminophen 325 Mg Tablet) 650 mg PO Q6H PRN PRN Reason: Pain, Moderate (Pain Scale 4-6 Last Admin: 06/05/22 15:46 Dose: 650 mg Amlodipine Besylate (Amlodipine Besylate 10 Mg Tablet) 10 mg PO DAILY@1800 [facility]; Protocol Last Admin: 06/17/22 17:30 Dose: 10 mg Docusate Sodium (Docusate Sodium 100 Mg Capsule) 100 mg PO BID PRN PRN Reason: Constipation Last Admin: 05/03/22 10:39 Dose: 100 mg Guaifenesin (Guaifenesin 100 Mg/5 Ml Liquid) 5 ml PO Q4H PRN PRN Reason: Cough Hydrochlorothiazide (Hydrochlorothiazide 12.5 Mg Tablet) 12.5 mg PO DAILY [facility]; Protocol Last Admin: 06/18/22 09:00 Dose: 12.5 mg Ibuprofen (Ibuprofen 600 Mg Tablet) 600 mg PO Q8H PRN PRN Reason: pain not relieved by tylenol Last Admin: 05/08/22 17:25 Dose: 600 mg Lidocaine/Diphenhydr/Alum/Mg/Simeth (Mag&Al/Sim/Diphenhyd/Lidocaine 10 Ml Oral.Susp) 10 ml PO Q4H PRN; Protocol PRN Reason: Sore Throat Metformin HCl (Metformin Hcl 500 Mg Tablet) 500 mg PO BIDWM [facility] Last Admin: 06/18/22 09:00 Dose: 500 mg Olanzapine (Olanzapine 5 Mg Tablet) 5 mg PO DAILY@1800 [facility] Last Admin: 06/17/22 17:30 Dose: 5 mg Olanzapine (Olanzapine 2.5 Mg Tablet) 2.5 mg PO DAILY [facility] Last Admin: 06/18/22 09:00 Dose: 2.5 mg Oxybutynin Chloride (Oxybutynin Chloride Er 5 Mg Tab.Er.24) 10 mg PO DAILY [facility] Last Admin: 06/18/22 09:00 Dose: 10 mg Allergies Allergies Allergy/AdvReac Type Severity Reaction Status Date / Time codeine Allergy Unknown Unknown Verified 12/15/21 18:29 sulfadiazine Allergy Unknown Unknown Verified 12/15/21 18:29 Assessment & Plan Assessment & Plan (1) Breast cancer: Status: Acute Code(s): C50.919 - Malignant neoplasm of unspecified site of unspecified female breast Plan This is an 86 year old female with history of DM, breast cancer, dementia with behavioral disturbance, HTN, HLD, CKD3, pulmonary nodule initially brought to the ED in December after her who was her primary oil well fishing 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 PSYCH 1. Continue with same treatment. 2. Waiting for placement. Most likely discharge next Sunday to the [facility] facility 06/17 continue tx. 06/18 continue tx. Reason for contiued inpatient stay Substantial Risk for: inability to function Time Spent With Patient Time: Total time managing care of this patient today ____ minutes.
[2022-06-18 17:10] VITALS: BP 143/70; PULSE 80; RESP 16; TEMP 36.9; O2SAT 98
[2022-06-18] MEDS: OLANZapine 5 MG TABLET PO (17:10)
[2022-06-18] MEDS: amLODIPine Besylate 10 MG TABLET PO (17:10)
--- NOTE | 2022-06-18 19:20 | PC.NURSE ---
Pt approached by staff to shower at 1830. Pt stated she wanted to finish going through her papers to prepare for discharge and watch the news for 30 minutes prior to showering. After watching news, pt ambulated independently with walker to shower room and met with staff. Undressed self. Showered, dried and dressed with mod assistance from staff. No irritability noted.
[2022-06-18 19:30] VITALS: BP 132/65; PULSE 79; RESP 18; TEMP 36.6; O2SAT 97
--- NOTE | 2022-06-19 06:43 | PM.PSYDC ---
DS: Providers Provider Date of Service: 06/19/22 Date of admission: 12/16/21 10:34 Date of discharge: 06/19/22 Primary care physician: Conchita Harding NP Consults: 01/11/22 12:27 Consult to Hematology / Oncology Routine Consulting Provider: Zain An Reason for consultation: Hx of breast cancer, CT Chest with nodules Has provider been notified: Yes 03/05/22 10:04 Consult to Hospitalist Routine Consulting Provider: Hospitalist Reason For Exam: chart review of BP meds; increase/add/leave as is 03/07/22 14:35 Consult to Hematology / Oncology Routine Consulting Provider: Zain An Reason for consultation: pt open to biopsy now Has provider been notified: Yes 04/05/22 14:48 Consult to Urology Routine Consulting Provider: Beto Adam Reason for consultation: Urinary incontinence Has provider been notified: Yes 04/17/22 20:51 Consult to Hospitalist Stat Consulting Provider: Hospitalist Reason For Exam: unwitnessed fall pt hit head 05/04/22 10:58 Consult to Hospitalist Routine Consulting Provider: Hospitalist Reason For Exam: Tested positive to COVID. Antivirals? 05/09/22 10:58 Consult to Hospitalist Routine Consulting Provider: Hospitalist Reason For Exam: COVID19 post antiviral, looks sicker reassesment 05/12/22 10:58 Consult to Hospitalist Routine Consulting Provider: Hospitalist Reason For Exam: Glycemia over 400, more confused, no DM hx 06/06/22 11:05 Consult to Hematology / Oncology Routine Consulting Provider: Zain An Reason for consultation: Aftercare recommendations Has provider been notified: Yes Attending physician on discharge: Marcus Quintanilla DS: Diagnosis Discharge Diagnosis (1) Breast cancer: Status: Acute DS: Medications Discharge Medications Home Medications: Home Medications Medication Instructions Recorded Confirmed atorvastatin 20 mg tablet 1 tab PO BEDTIME 12/16/21 12/16/21 sertraline 25 mg tablet 1 tab PO BEDTIME 12/16/21 12/16/21 trazodone 50 mg tablet 1 tab PO BEDTIME 12/16/21 12/16/21 Mental Status Exam Mental Status Exam Patient Appearance: Appropriate Patient Orientation: Person, Place and Situation Level of Consciousness: Awake and Appropriate Patient Behavior: Guarded and Passive Mood Description: Withdrawn Affect Description: Constricted Patient Cognition Impaired: Yes Ability to Follow Directions: Fair Speech Pattern: Clear Hallucinations: None Delusions: Paranoid Ideation Thought Process: Distracted and Slowed Thinking Thought Content: positive for [place], positive for Perseveration and positive for Poverty of Content Judgement: Poor Data Data Completed and Pending Completed studies during hospitalization [Text1]: 06/12/22 06/16/22 08:39 07:59 Creatinine 0.96 Estim Creat Clear Calc 42.4 Estimated GFR 55 Triglycerides 131 Cholesterol 194 LDL Cholesterol, Calc 138 HDL Cholesterol 30 12/16/21 00:00 Urine clean catch - Urine elliott top Urine Culture - Final Escherichia coli Imaging Diagnostic Imaging Impressions Chest CT 01/10/22 15:11 IMPRESSION: Bilateral small pulmonary nodules, left greater than right. Biapical pleural and parenchymal scarring. 1.1 x 1.4 cm heterogeneous or semisolid right apical nodule, question related to pleural and parenchymal scarring. 1.5 cm partially calcified left thyroid nodule. Based on patient age in size, this does not meet criteria for follow-up. Moderate coronary artery calcification. Fleischner guidelines were followed. Chest CT 04/01/22 14:44 IMPRESSION: *Unchanged semisolid 1.5 cm x 1.0 cm nodule within the apex of the right pulmonary lobe. Per the Fleischner Society 2017 revised guidelines, as clinically indicated recommend annual screening CT to demonstrate stability to demonstrate ultimate 5 year stability. *Unchanged small number of scattered solid pulmonary nodules ranging in size up to 6 mm diameter stable compared with 01/10/2022. *Moderate-marked diffuse coronary artery calcific atherosclerosis. *Partially visualized posttreatment related changes of the right breast. Head CT 04/18/22 09:11 IMPRESSION: No acute intracranial pathology. Chest X-Ray 05/09/22 19:28 IMPRESSION: No acute intrathoracic disease. DS: Summary Hospital Course Hospital Course: The patient was admitted from the emergency room of another hospital when she was removed from her home after her abruptly and her living situation was and sustainable. She was assessed by the crisis team movement unit and her place was very dirty, she was unable to take care of herself. She was brought into this unit under a Section 12. Please see the HPI of the admission note for further details. On admission the patient was very distressed and angry, she wanted to go back home and take care of the of her . It was very clear since admission the patient suffered from dementia and she was unable to take care of herself. Her hygiene was very poor and we needed to ordered a shower since she was extremely filthy. We had to file a Section 7 and 8 and eventually she got committed. Besides her symptoms of dementia the patient had mood disorder with paranoia is stating that the major of was [place] wanted to take her properties. Also, we found out that in the community she had several episodes that police needed to be called and she had to remove from a of pulmonary clinic. After getting the Section 7 and 8, since the patient did not have social support , we had to file for guardianship and conservatorship but eventually was granted. The patient stabilized eventually and she was able to participate in some groups but most of the time she stayed in the common areas writing letters. While she was in the facility, the patient had very poor short-term memory, unable to remember conversations that we had in the past. While she was in the unit, she had episodes of UTI with increased altered mental status, she also had a tooth infection and we tried to get dentist appointment but eventually the patient refused treatment. The patient could not live by herself, she needed help of her ADL less so we tried to find the penitentiary facility. After several months of tried on different facilities, she was accepted at a local [facility]iary facility. The patient was stable, discharged to this facility. Time spent discussing smoking cessation with patient: 3 to 10 minutes Status at Discharge Cognitive/behavioral status at discharge: Impaired at baseline Functional status at discharge: uses cane/walker Overall status at discharge: patient is back to baseline Time Spent with Patient Time attestation: Total time managing care of this patient today _45___ minutes. Time spent: Greater than 30 minutes Discharge Plan Discharge Anticipated Discharge Date/Time: 06/19/22 10:00 Patient Disposition: Xfer SNF Discharge Diagnosis: Dementia multifactorial. Breast cancer survivor Delirium disorder resolved Referrals: Conchita Harding NP [Primary Care Provider] - 1 Week Discharge Medications: New metformin 500 mg Tablet 500 mg PO BIDWM 30 Days Qty: 60 0RF olanzapine 5 mg Tablet 5 mg PO DAILY@1800 30 Days Qty: 30 0RF olanzapine 2.5 mg Tablet 2.5 mg PO DAILY 30 Days Qty: 30 0RF amlodipine 10 mg Tablet 10 mg PO DAILY@1800 30 Days Qty: 30 0RF Protocol: Hold for SBP< HOLD for SBP < : 90 docusate sodium 100 mg Capsule 100 mg PO BID PRN (Reason: Constipation) 30 Days Qty: 30 0RF oxybutynin chloride 5 mg Tablet Extended Release 24hr 10 mg PO DAILY 30 Days Qty: 60 0RF hydrochlorothiazide 12.5 mg Tablet 12.5 mg PO DAILY 30 Days Qty: 30 0RF Protocol: Hold for SBP< HOLD for SBP < : 90 Continued atorvastatin 20 mg tablet 1 tab PO BEDTIME 30 Days Qty: 30 0RF Discontinued trazodone 50 mg tablet 1 tab PO BEDTIME sertraline 25 mg tablet 1 tab PO BEDTIME Discharge Orders: Discharge Order (Routine); Ordered 06/19/22 Ordered By: Marcus Quintanilla Diet: Advance to usual diet Activity on Discharge: As tolerated Stand Alone Forms: Patient Portal Discharge page Care Plan Goals: Care plan goals achieved in this admission Health Concerns: Continue care by outpatient providers Plan of Treatment: Continue medication management by outpatient providers Assessment: Elderly female with a prior history of dementia and other medical comorbidities admitted after that the of her unable to take care of herself, we needed to get a Section 7 and 8 and eventually guardianship and conservatorship since she is unable to take care of her finances on her own. She had been transferred to penitentiary facility for continuation of care. At this moment safe to be discharged
[2022-06-19] MEDS: OLANZapine 2.5 MG TABLET PO (08:26)
[2022-06-19] MEDS: metFORMIN HCl 500 MG TABLET PO (08:27)
[2022-06-19] MEDS: hydroCHLOROthiazide 12.5 MG TABLET PO (08:28)
[2022-06-19 09:45] VITALS: BP 138/63; PULSE 72; RESP 16; TEMP 37.2; O2SAT 97
[2022-06-19 10:31] LABS: COVID-19 Test Negative (Negative); IDNOW Serial# BCCEAD1C
--- NOTE | 2022-06-19 10:44 | PC.NURSE ---
Pt. A & O X 4. Aware of discharge and ready with belongings packed. No depression, AH/VH. Endorses some anxiety related to distance of facility from [place], where her former home is. Pt. expressing gratitude to staff. Pt. left unit 10:30 via stretcher accompanied by 3 malariologist.
== END 2022-06-19 10:30 | disposition skilled nursing facility (03) | DRG 885 ==
LOC: HO.ED 12-16 10:09 → HO.PGERI 12-16 10:47
PROVIDERS: Nurse Practitioner Family; Psychiatry & Neurology Psychiatry; Social Worker; Admitting Provider Psychiatry & Neurology Psychiatry; Emergency Provider Emergency Medicine; PCP Nurse Practitioner Family; Visit Provider Psychiatry & Neurology Psychiatry
DX: F29 Unspecified psychosis not due to a substance or known physiological condition (principal); U07.1 COVID-19; G93.41 Metabolic encephalopathy; F03.911 Unspecified dementia, unspecified severity, with agitation; N39.0 Urinary tract infection, site not specified; R91.8 Other nonspecific abnormal finding of lung field; R32 Unspecified urinary incontinence; R62.7 Adult failure to thrive; E11.65 Type 2 diabetes mellitus with hyperglycemia; Z68.23 Body mass index [BMI] 23.0-23.9, adult; I12.9 Hypertensive chronic kidney disease with stage 1 through stage 4 chronic kidney disease, or unspecified chronic kidney disease; N18.30 Chronic kidney disease, stage 3 unspecified; E11.22 Type 2 diabetes mellitus with diabetic chronic kidney disease; K04.7 Periapical abscess without sinus; Z75.1 Person awaiting admission to adequate facility elsewhere; Z85.3 Personal history of malignant neoplasm of breast; Z88.5 Allergy status to narcotic agent; Z79.4 Long term (current) use of insulin; Z79.84 Long term (current) use of oral hypoglycemic drugs; Z79.899 Other long term (current) drug therapy
CPT/HCPCS: 0241U; 36415; 70450; 71045; 71250; 80048; 80053; 80061; 80076; 81001; 82565; 82947; 83036; 83735; 83880; 84443; 84484; 85025; 87086; 87088; 87186; 87635; 99285; J0248; J1200; J2250; J3230